=== PATIENT | female | born 1960 | race Caucasian/White ===

== ENCOUNTER → 2017-11-10 21:26 | Outpatient (CLI) | payer OTHER, SELFPAY ==
[2017-11-13 13:04] LABS: HPV Reflexed? NOT INDICATED
== END ==
PROVIDERS: Family Provider Family Medicine; PCP Family Medicine; Visit Provider Obstetrics & Gynecology
DX: Z12.4 Encounter for screening for malignant neoplasm of cervix (principal)
CPT/HCPCS: 88175; G0145

== ENCOUNTER → 2017-11-11 08:53 | Outpatient (CLI) | payer OTHER, SELFPAY ==
--- NOTE | 2017-11-11 08:56 | RAD_ITS ---
STUDY: X-RAY - LEFT SHOULDER REASON FOR EXAM: Chronic pain. TECHNIQUE: 3 view(s) of the shoulder. COMPARISON: None. FINDINGS: Normal glenohumeral articulation. Normal acromioclavicular joint. Normal acromion. Normal humeral head and visualized proximal humerus. The soft tissue structures are unremarkable. Normal visualized pulmonary apex. RAD/Shoulder min 2 Views IMPRESSION: Unremarkable x-ray examination of the left shoulder. Electronically Signed: Gamal Pendleton MD at 9:43 EST Tel , Service support ,
== END ==
PROVIDERS: Family Provider Family Medicine; PCP Family Medicine; Visit Provider Orthopaedic Surgery
DX: M25.512 Pain in left shoulder (principal)
CPT/HCPCS: 73030

== ENCOUNTER → 2017-11-26 15:31 | Outpatient (CLI) | payer OTHER, SELFPAY ==
--- NOTE | 2017-11-26 15:33 | HPBI_ITS ---
MAMMOGRAPHY - BILATERAL SCREENING REASON FOR EXAM: Female, 57 years old. Routine annual screening examination. PERTINENT HISTORY: Aunt with breast cancer. TECHNIQUE: Digital bilateral breast kira (3D mammographic acquisition) in the CC and MLO projections. 2-D mediolateral oblique (MLO) and craniocaudad (CC) views of both breasts were obtained. CAD: Full Field Digital Mammography with Computer Added Detection was performed. COMPARISON: Comparison is made with prior study dated November 14, 2016 and February 01, 2015. FINDINGS: Breast Composition: There are scattered areas of fibroglandular density. There are no dominant masses or suspicious calcifications. No other significant abnormalities are identified. There has been no significant change since the prior study. HPBI/SCREENING MAMM (CAD), BILAT IMPRESSION: Stable bilateral screening mammogram. Yearly follow-up mammogram recommended. (A) ASSESSMENT CATEGORY: BIRADS Category 1: Negative. A letter regarding these results will be sent to the patient by the facility within 30 days. Approximately 10% of breast cancers are not detected by mammography. A normal mammogram should not delay biopsy of a clinically suspicious abnormality. [id number] Electronically Signed: Toby Jasso MD at 8:18 EDT Tel [phone], Service support ,
== END ==
PROVIDERS: Family Provider Family Medicine; PCP Family Medicine; Visit Provider Obstetrics & Gynecology
DX: Z12.31 Encounter for screening mammogram for malignant neoplasm of breast (principal)
CPT/HCPCS: 77063; 77067

== ENCOUNTER → 2017-12-16 15:07 | Outpatient (CLI) | payer OTHER, SELFPAY ==
--- NOTE | 2017-12-16 15:09 | RAD_ITS ---
STUDY: X-RAY - RIGHT KNEE REASON FOR EXAM: Female, 57 years old. Pain TECHNIQUE: 4 view(s) of the knee. COMPARISON: X-ray 04/09/2016 FINDINGS: Normal visualized distal femur. Normal visualized proximal tibia and fibula. Normal proximal tibiofibular articulation. Normal medial femorotibial compartment. Normal lateral femorotibial compartment. Normal patellofemoral articulation. The soft tissue structures are unremarkable. RAD/Knee 4 or More Views IMPRESSION: Normal x-ray examination of the knee. Electronically Signed: Israel Wolff MD at 21:48 EDT Tel , Service support ,
== END ==
PROVIDERS: Family Provider Family Medicine; PCP Family Medicine; Visit Provider Orthopaedic Surgery
DX: S89.91XA Unspecified injury of right lower leg, initial encounter (principal); X58.XXXA Exposure to other specified factors, initial encounter
CPT/HCPCS: 73564

== ENCOUNTER → 2018-01-01 10:17 | Outpatient (CLI) | payer OTHER, SELFPAY ==
[2018-01-01 12:35] LABS: Anion Gap 6 (5-15); BUN 27 mg/dL (7-18); BUN/Creat Ratio 28.2 RATIO (10-20); Chloride 104 mmol/L (98-107); Creatinine, Serum 0.96 mg/dL (0.55-1.02); EST Glomerular Filtration Rate 64 mL/min (>60); Est Glom Filt Rate - Afr Amer 77 mL/min (>60); Glucose 81 mg/dL (74-106); Magnesium 2.1 mg/dL (1.6-2.6); Potassium 4.1 mmol/L (3.5-5.1); Sodium Level 139 mmol/L (136-145)
== END ==
PROVIDERS: Family Provider Family Medicine; PCP Family Medicine; Visit Provider Family Medicine
DX: R25.2 Cramp and spasm (principal)
CPT/HCPCS: 36415; 80048; 82330; 83735

== ENCOUNTER → 2018-05-23 09:12 | Outpatient (CLI) | payer OTHER, SELFPAY ==
[2018-05-23 10:23] LABS: AST(SGOT) 26 U/L (15-37); Alanine Aminotransfer ALT/SGPT 43 U/L (13-56); Albumin, Serum 3.6 g/dL (3.2-5.0); Alkaline Phosphatase 69 U/L (45-117); Cholesterol 210 mg/dL (200); Globulin 3.7 g/dL (2.2-4.2); High Density Lipoprotein 42 mg/dL; Protein, Total 7.3 g/dL (6.4-8.2); Triglycerides 222 mg/dL; Very Low Density Lipoprotein 44 mg/dL (5-40)
== END ==
PROVIDERS: Family Provider Family Medicine; PCP Family Medicine; Visit Provider Internal Medicine Cardiovascular Disease
DX: E78.5 Hyperlipidemia, unspecified (principal)
CPT/HCPCS: 36415; 80061; 80076

== ENCOUNTER → 2018-06-02 06:51 | Outpatient (CLI) | payer OTHER, SELFPAY ==
--- NOTE | 2018-06-02 06:52 | ECHOD_ITS ---
Reason For Study: dyspnea/SOB Procedure This was a 2D Doppler, Color Flow transthoracic echocardiogram. The study was technically difficult. Exam performed in department. Left Ventricle Normal LV size. Left ventricular systolic function is normal. The estimated ejection fraction is 65 %. Diastolic function is indeterminate. No regional wall motion abnormalities noted. Right Ventricle Normal RV size. Normal systolic function. Atria The left atrium is mildly enlarged. Normal right atrium. No doppler evidence for ASD. Mitral Valve There is no mitral annular calcification. Normal mitral valve. Trivial mitral valve insufficiency. Tricuspid Valve Normal tricuspid valve. Trivial tricuspid valve insufficiency. Right ventricular systolic pressure estimated to be 29 mmHg. Aortic Valve Trisinus/trileaflet aortic valve. Normal aortic valve. Pulmonic Valve The pulmonic valve is not well visualized. Great Vessels Normal sized aortic root. Pericardium/Pleural No pericardial effusion. MMode/2D Measurements & Calculations LVIDd: 4.3 cm IVSd: 1.1 cm Ao root diam: 2.8 cm LVIDs: 3.2 cm LVPWd: 0.99 cm LA dimension: 4.0 cm RVDd: 2.6 cm FS: 26.9 % LAV(MOD-bp): 71.9 ml LA A4 area: 22.4 cm2 RA A4 area: 14.1 cm2 LAV(MOD-bp) Indexed: 34.2 ml/m2 LAV(MOD-sp2): 69.1 ml LAV(MOD-sp4): 69.5 ml Doppler Measurements & Calculations MV E max alexei: 94.1 cm/sec Lat Peak E' Alexei: 8.4 cm/sec Med Peak E' Alexei: 8.0 cm/sec MV A max alexei: 99.2 cm/sec E/E' lat: 11.2 E/E' med: 11.8 MV E/A: 0.95 Ao V2 max: 167.2 cm/sec LV V1 max: 129.2 cm/sec PA V2 max: 126.9 cm/sec Ao max P.2 mmHg LV V1 max P.7 mmHg TR max alexei: 254.5 cm/sec TR max P.0 mmHg Interpretation Summary The study was technically difficult. Left ventricular systolic function is normal. The estimated ejection fraction is 65 %. The left atrium is mildly enlarged. Trivial mitral valve insufficiency. Trivial tricuspid valve insufficiency. Right ventricular systolic pressure estimated to be 29 mmHg. Diastolic function is indeterminate. Ordering Physician: Romulo Mcguire Referring Physician: Margarita Meza Performed By: Melida Harrell, SPENSER, RVT
--- NOTE | 2018-06-02 09:28 | STRESSREP_ITS ---
Stress Test Report Date: 06/02/2018 Procedure: Exercise tolerance test/imaging study Indications: Chest pain; shortness of breath Consent: Per the patient Procedure: The patient exercised on a Te protocol for 6 minutes completing Stage II achieving a peak heart rate of 153 bpm (93 % predicted maximal heart rate) with a peak blood pressure of 190/80 mmHg and a peak MET capacity of 7 METs. The baseline ECG demonstrated normal sinus rhythm. The peak exercise ECG demonstrated 1 mm of horizontal/upsloping ST segment depression in leads II, III, aVF, and V4 through V6 with gradual resolution towards baseline in recovery. There was a rare PAC/PVC during exercise. The functional capacity was considered average. There was no complaint of chest discomfort during exercise or recovery. The examination was discontinued secondary to dyspnea. Impression: 1. Technically adequate (percent predicted maximal heart rate greater than 85%) exercise tolerance test 2. Peak exercise ECG demonstrated 1 mm of horizontal/upsloping ST segment depression in leads II, III, aVF, and V4 through V6 with gradual resolution towards baseline in recovery 3. There was a rare PAC/PVC during exercise. 4. Nuclear images pending Myocardial perfusion imaging study: Technique: The patient was injected with 14.7 mCi of technetium 99m Cardiolite and subsequently rest SPECT Cardiolite nuclear imaging was obtained in the horizontal long, vertical long, and short axis views. The patient exercised on a Te protocol for 6 minutes completing Stage II achieving a peak heart rate of 153 bpm (93 % predicted maximal heart rate) with a peak blood pressure 190/80 mmHg and a peak MET capacity of 7 METs. The patient was injected with 44.8 mCi of technetium 99m Cardiolite and subsequently stress SPECT Cardiolite nuclear imaging was obtained in the horizontal long, vertical long, and short axis views. A gated Cardiolite study at peak stress was obtained. Interpretation: Rest and stress SPECT Cardiolite nuclear imaging status post realignment, normalization, and attenuation correction, demonstrates at rest relative uniform tracer uptake. Status post stress there appears to be subtle diminished tracer uptake in portions of the distal anterior/anterior apical segments. There are similar type findings on the resting and stress polar map images. There is end systolic thickening and brightening. The gated Cardiolite study demonstrates myocardial thickening and inward wall motion. The reported LVEF is 72 %. Impression: 1. Rest and stress SPECT Cardiolite nuclear imaging demonstrate status post stress subtle diminished tracer uptake in portions of the distal anterior/anteroapical segments potentially compatible with shifting soft tissue attenuation/artifact, however, an area of myocardial ischemia cannot necessarily be excluded. 2. The gated Cardiolite study reports an LVEF of 72 %. This note was generated with [email or web address].ation software. It may contain incorrect words, spelling, and punctuation that were not noted in checking the note before signing.
--- NOTE | 2018-06-16 16:55 | RAD_ITS ---
STUDY: X-RAY CHEST REASON FOR EXAM: Female, 58 years old. Chest pain with shortness of breath. TECHNIQUE: Frontal and lateral views of the chest. COMPARISON: None. FINDINGS: There is mild hyperexpansion. There is no demonstrated pleural abnormality. There is borderline cardiomegaly. Normal mediastinum and abel. Normal visualized pulmonary arteries. Normal visualized aortic arch and descending thoracic aorta. Normal visualized thoracic spine. Normal visualized ribs, clavicles, and shoulders. There is no demonstrated abnormality of the visualized soft tissue structures of the upper abdomen. RAD/Chest PA and Lateral IMPRESSION: Borderline cardiomegaly with mild hyperexpansion. No acute pathology. Electronically Signed: Cedric Fowler MD at 17:56 EDT , Service support ,
== END ==
PROVIDERS: Family Provider Family Medicine; PCP Family Medicine; Visit Provider Internal Medicine Cardiovascular Disease
DX: R06.00 Dyspnea, unspecified (principal); R07.9 Chest pain, unspecified; Z82.49 Family history of ischemic heart disease and other diseases of the circulatory system
CPT/HCPCS: 71046; 78452; 93017; 93306; A9500; A4216

== ENCOUNTER → 2018-06-16 17:03 | Outpatient (CLI) | payer OTHER, SELFPAY ==
[2018-06-16 17:26] LABS: Hematocrit 39.1 % (37-47); Hemoglobin 12.9 g/dl (12.0-15.0); Mean Corpuscular Hgb 30.9 pg (27.0-32.0); Mean Corpuscular Volume 93.5 fL (81-99); Mean Platelet Vol. 10.3 fl (6.2-12.0); Platelet Count 267 K/mm3 (150-450); RBC Distribution Width CV 12.5 % (11.6-14.6); RBC Distribution Width SD 41.9 fl (35.1-43.9); Red Blood Count 4.18 M/mm3 (4.2-5.4); White Blood Count 6.7 K/mm3 (4.4-11.0)
[2018-06-16 17:31] LABS: Scan Indicated on CBC? Y/N NO
[2018-06-16 17:35] LABS: International Normalized Ratio 0.9; Prothrombin Time (Protime)PT. 12.5 SECONDS (11.7-14.9)
[2018-06-16 17:36] LABS: Partial Thromboplast Time 24.1 Seconds (24.1-36.2)
[2018-06-16 18:02] LABS: Anion Gap 7 (5-15); BUN 15 mg/dL (7-18); BUN/Creat Ratio 13.6 RATIO (10-20); Calcium,Total 8.9 mg/dL (8.5-10.1); Chloride 105 mmol/L (98-107); EST Glomerular Filtration Rate 54 mL/min (>60); Est Glom Filt Rate - Afr Amer 66 mL/min (>60); Glucose 88 mg/dL (74-106); Potassium 3.6 mmol/L (3.5-5.1); Sodium Level 141 mmol/L (136-145)
== END ==
PROVIDERS: Family Provider Family Medicine; PCP Family Medicine; Referring Provider Internal Medicine Cardiovascular Disease; Visit Provider Internal Medicine Cardiovascular Disease
DX: R07.9 Chest pain, unspecified (principal); R94.39 Abnormal result of other cardiovascular function study
CPT/HCPCS: 36415; 80048; 85027; 85610; 85730

== ENCOUNTER → 2018-06-23 09:58 | Day surgery (SDC) | payer OTHER, SELFPAY ==
[2018-06-22 09:09] VITALS: BMI 32.1
--- NOTE | 2018-06-23 22:12 | CL.D_ITS ---
Patient Name: JOHANNA DOVE Study Date: 06/23/2018 Performing: Romulo Mcguire MD Ht: 68 inches 173 cm : 1960 Wt: 211.9 lbs 96 kg Age: 58 Gender: female BSA: 2.1 PROCEDURE(S) PERFORMED [id number]/LV CLINICAL PROFILE AND INDICATIONS Indications: Suspected CAD Heart Failure: None Stress/Imaging Stress Test w/SPECT MPI: Yes Result: PositiveStress Test with SPECT MPI: Positive Angina Classification Anginal Classification w/in 2 Weeks: CCS III CAD Presentations: Other: chest pain CONCLUSIONS Elevated Left Ventricular End Diastolic Pressure Normal LV size, wall motion,and systolic function LVEF: by LV gram 65 % Normal coronary arteries RECOMMENDATIONS Risk factor modification Medical therapy DESCRIPTION OF PROCEDURE The patient arrived to the procedure lab. The risks and benefits of the procedure as well as a full d escription of our services here and current unavailability of surgical backup were fully explained to the patient and/or their significant other prior to the catheterization. The Timeout was completed, verifying the correct patient and procedure. The patient's procedural site was prepped and draped in the usual fashion. Local anesthetic was given subcutaneously to right radial region with Lidocaine 2% . Using a modified Seldinger technique, arterial access was obtained via the right radial artery, a 6 Fr sheath was inserted. Left Coronary Artery selective angiography was performed in multiple views u sing a 6 Fr. 4.0 [place] catheter. Right Coronary Artery selective angiography was then performed in mu ltiple views using a 5 Fr. 4.0 [place] catheter. Left Ventriculography was performed in BAILEY projection using a 5 Fr. [place] catheter. LV to AO pullback pressures were then recorded.The arterial sheath wa s pulled and a TR Band was applied for hemostasis, 18cc of air applied CORONARY ANGIOGRAPHY DOMINANCE: Left Dominant LEFT HEART ASSESSMENT Left Ventricular Ejection Fraction: by LV Gram 65 % Normal LV wall motion Elevated Left Ventricular End Diastolic Pressure LVEDP: 18 mmHg LEFT MAIN: Angiographically normal LEFT ANTERIOR DECENDING ARTERY: Angiographically normal CIRCUMFLEX ARTERY: Angiographically normal RIGHT CORONARY ARTERY: Angiographically normal VALVE FINDINGS: Normal Aortic Valve function Normal Mitral Valve function AORTIC ROOT: Angiographically normal COMPLICATIONS No Complications PROCEDURE MEDICATIONS Fentanyl 50 mcg IV Versed 1 mg IV Oxygen: 2 L/min via nasal cannula Heparin diluted in 23cc Heparinized saline. Patient given 10cc IA of this solution. 06/23/2018 11:43 :44 Verapamil 2.5mg, Ntg 100mcgs, 2000 units of Heparin diluted in 23cc Heparinized saline. Patient give n 10cc IA of this solution. 06/23/2018 11:43:44 SUMMARY OF HEMODYNAMIC DATA Time AIR REST ECG 10:28:42 AO 98/55 (73) SA 11:46:21 LV 125/3, 15 11:53:10 LV 124/6, 18 11:53:16 LV 119/9, 21 11:54:25 LVp 119/10, 25 11:54:33 AOp 115/59 (82) 11:54:38 Signed By Romulo Mcguire MD On 06/23/2018 20:14:30 Romulo Mcguire MD
== END ==
PROVIDERS: Family Provider Family Medicine; PCP Family Medicine; Referring Provider Internal Medicine Cardiovascular Disease; Visit Provider Internal Medicine Cardiovascular Disease
DX: I11.0 Hypertensive heart disease with heart failure (principal); I50.30 Unspecified diastolic (congestive) heart failure; R94.39 Abnormal result of other cardiovascular function study; E78.00 Pure hypercholesterolemia, unspecified; G47.33 Obstructive sleep apnea (adult) (pediatric); K21.9 Gastro-esophageal reflux disease without esophagitis; M19.90 Unspecified osteoarthritis, unspecified site; M79.7 Fibromyalgia; Z79.82 Long term (current) use of aspirin; Z79.899 Other long term (current) drug therapy; Z82.49 Family history of ischemic heart disease and other diseases of the circulatory system
CPT/HCPCS: 93458; 99152; J7040; Q9967; C1769; C1894

== ENCOUNTER → 2018-12-07 16:13 | Outpatient (CLI) | payer OTHER, SELFPAY ==
[2018-12-10 14:20] LABS: HPV Reflexed? NOT INDICATED
== END ==
PROVIDERS: Family Provider Family Medicine; PCP Family Medicine; Visit Provider Obstetrics & Gynecology
DX: Z12.4 Encounter for screening for malignant neoplasm of cervix (principal)
CPT/HCPCS: 88175; G0145

== ENCOUNTER → 2018-12-14 | Outpatient (CLI) | payer OTHER, SELFPAY ==
--- NOTE | 2018-12-14 15:56 | BI_ITS ---
MAMMOGRAPHY - BILATERAL SCREENING REASON FOR EXAM: Female, 58 years old. Routine annual screening examination. PERTINENT HISTORY: Aunt with breast cancer. TECHNIQUE: Digital bilateral breast kira (3D mammographic acquisition) in the CC and MLO projections. 2-D mediolateral oblique (MLO) and craniocaudad (CC) views of both breasts were obtained. CAD: Full Field Digital Mammography with Computer Added Detection was performed. COMPARISON: Comparison is made with prior study dated November 26, 2018 and November 14, 2016. FINDINGS: Breast Composition: There are scattered areas of fibroglandular density. There are no dominant masses or suspicious calcifications. There is a 5.8 mm well-defined nodule in the upper lateral aspect of the right breast. Correlation with ultrasound is recommended. No other significant abnormalities are identified. BI/SCREENING MAMM (CAD), BILAT IMPRESSION: 5.8 mm well-defined nodule in the upper lateral aspect of the right breast. Correlation with ultrasound is recommended. ASSESSMENT CATEGORY: BIRADS Category 0: Incomplete. Need additional imaging evaluation. A letter regarding these results will be sent to the patient by the facility within 30 days. Approximately 10% of breast cancers are not detected by mammography. A normal mammogram should not delay biopsy of a clinically suspicious abnormality. [id number] Electronically Signed: Toby Jasso, at 9:42 EDT , Service support ,
== END | disposition home or self-care (01) ==
LOC: OPBI 15:54
PROVIDERS: Family Provider Family Medicine; PCP Family Medicine; Referring Provider Obstetrics & Gynecology; Visit Provider Obstetrics & Gynecology
DX: Z12.31 Encounter for screening mammogram for malignant neoplasm of breast (principal); N63.10 Unspecified lump in the right breast, unspecified quadrant; Z80.3 Family history of malignant neoplasm of breast
CPT/HCPCS: 77063; 77067

== ENCOUNTER → 2018-12-21 15:29 | Outpatient (CLI) | payer OTHER, SELFPAY ==
--- NOTE | 2018-12-21 15:32 | US_ITS ---
STUDY: ULTRASOUND BREAST - RIGHT REASON FOR EXAM: Female, 58 years old. Abnormal screening mammogram. TECHNIQUE: Axial and longitudinal images of the RIGHT breast were performed with a high resolution ultrasound transducer. COMPARISON: Comparison is made with prior mammogram dated December 14, 2018. FINDINGS: RIGHT Breast: There is a 3 mm x 4 mm x 2 mm well-defined hypoechoic nodule at the 9:00 position of the breast at 8 cm from the nipple. This corresponds to the mammographic findings. This may represent a small cyst with low-level echoes within it or a small fibroadenoma. A four-month follow-up sonogram is recommended. US/Breast Limited Unilateral IMPRESSION: 3 mm x 4 mm x 2 mm well-defined hypoechoic nodule at the 9:00 position of the breast at 8 cm from nipple. A four-month follow-up sonogram is recommended for further evaluation. ASSESSMENT CATEGORY: BIRADS Category 3: Probably Benign - Short-Interval Follow-up Suggested. A letter regarding these results will be sent to the patient by the facility within 30 days. Electronically Signed: Toby Jasso, at 8:08 EDT , Service support ,
== END ==
PROVIDERS: Family Provider Family Medicine; PCP Family Medicine; Visit Provider Obstetrics & Gynecology
DX: N63.10 Unspecified lump in the right breast, unspecified quadrant (principal)
CPT/HCPCS: 76642

== ENCOUNTER → 2019-04-14 | Outpatient (CLI) | payer OTHER, SELFPAY ==
--- NOTE | 2019-04-14 13:11 | RAD_ITS ---
STUDY: X-RAY - RIGHT FOOT CLINICAL: Female, 58 years old. Chronic foot pain TECHNIQUE: 3 view(s) of the foot. COMPARISON: None. FINDINGS: Normal talus, calcaneus, and tarsal bones. Normal visualized subtalar, talonavicular, calcaneocuboid, tarsal and tarsometatarsal articulations. Normal metatarsi. There is degenerative arthrosis of the metatarsophalangeal joint of the hallux with a hallux valgus deformity. Normal tibial and fibular sesamoid bones. Normal interphalangeal joint of the great toe. Normal phalanges of the great toe. Normal second through fifth metatarsophalangeal joints. Normal interphalangeal joints and phalanges of the lesser toes. The soft tissue structures are unremarkable. There is no demonstrated fracture. RAD/Foot min 3 Views IMPRESSION: No acute fracture or dislocation. Marked hallux valgus and prominent first metatarsal bunion. Electronically Signed: Montez Fisher MD at 17:08 EDT , Service support ,
== END | disposition home or self-care (01) ==
LOC: HPRAD 13:08
PROVIDERS: Family Provider Family Medicine; PCP Family Medicine; Referring Provider Podiatrist; Visit Provider Podiatrist
DX: S93.601A Unspecified sprain of right foot, initial encounter (principal)
CPT/HCPCS: 73630

== ENCOUNTER → 2019-04-28 14:19 | Outpatient (CLI) | payer OTHER, SELFPAY ==
--- NOTE | 2019-04-28 14:21 | US_ITS ---
STUDY: ULTRASOUND BREAST - RIGHT REASON FOR EXAM: Female, 58 years old. Follow-up of hypoechoic nodule TECHNIQUE: Axial and longitudinal images of the RIGHT breast were performed with a high resolution ultrasound transducer. COMPARISON: Mammogram of 12/14/2018, and sonogram of 12/21/2018. FINDINGS: RIGHT Breast: There is a lesion in the upper-outer quadrant. The lesion measures 0.3 x 0.4 x 0.2 cm in size, stable since prior. Clock notation: 9 o'clock position. Distance from nipple: 8 cm. Posterior Enhancement: No. Posterior Shadowing: None. Margins: Sharp and smooth. Echogenicity: Hypoechoic. Compression effect on Shape: No change. US/Breast Limited Unilateral IMPRESSION: Stable dimension of the hypoechoic nodule on the right side compared to prior. ASSESSMENT CATEGORY: BIRADS Category 3: Probably Benign - Short-Interval Follow-up Suggested. A letter regarding these results will be sent to the patient by the facility within 30 days. Follow-up: Patient to return to annual screening in December 2019 Electronically Signed: Wayne Kelly MD at 13:41 EDT Tel [phone], Service support ,
== END ==
PROVIDERS: Family Provider Family Medicine; PCP Family Medicine; Referring Provider Obstetrics & Gynecology; Visit Provider Obstetrics & Gynecology
DX: N63.11 Unspecified lump in the right breast, upper outer quadrant (principal)
CPT/HCPCS: 76642

== ENCOUNTER → 2019-06-10 09:08 | Outpatient (CLI) | payer OTHER, SELFPAY ==
[2019-06-10 09:03] VITALS: BMI 32.1
--- NOTE | 2019-06-10 09:09 | RAD_ITS ---
STUDY: X-RAY - RIGHT HAND REASON FOR EXAM: Pain. TECHNIQUE: 3 view(s) of the hand. COMPARISON: None. FINDINGS: Normal radiocarpal articulation. Normal distal radioulnar joint. Normal visualized carpal bones. Normal carpal articulations There is moderate to severe joint space narrowing of the carpometacarpal articulation of the thumb. Normal second through fifth carpometacarpal joints. Normal metacarpi. Normal metacarpophalangeal joint of the thumb. There is a small marginal osteophyte without joint space narrowing of the interphalangeal joint of the thumb. Normal proximal and distal phalanges of the thumb. Normal metacarpophalangeal joints of the second through fifth fingers. There is mild joint space narrowing of the third through fifth distal interphalangeal joints. Normal phalanges of the second through fifth fingers. The soft tissue structures are unremarkable. RAD/Hand Min 3 Views IMPRESSION: Arthrosis of the first carpometacarpal joint and third through fifth distal interphalangeal joints. Electronically Signed: Gamal Pendleton MD at 15:09 EDT Tel , Service support ,
[2019-06-10 12:26] LABS: Absolute Lymphocyte Count 2.38 X10^3/uL (0.83-4.51); Absolute Neutrophil Count 2.7 X10^3/uL (2.0-7.7); Basophil# 0.04 X10^3/uL; Basophil% 0.7 % (0-1); Eosinophil# 0.29 X10^3/uL; Hematocrit 40.9 % (37-47); Hemoglobin 13.1 g/dL (12.0-15.0); Lymphocyte # 2.38 X10^3/ul (4.0); Lymphocyte % 40.9 % (19-41); Mean Corpuscular Hgb 30.7 pg (27.0-32.0); Mean Corpuscular Volume 95.8 fL (81-99); Mean Platelet Vol. 10.6 fl (6.2-12.0); Monocyte# 0.37 X10^3/uL; Monocyte% 6.4 % (0-10); NRBC Flagged by Analyzer 0 % (0-5); Neutrophil # 2.72 X10^3/uL (2.7-7.7); Neutrophil % 46.7 % (47-70); Platelet Count 275 K/mm3 (150-450); RBC Distribution Width SD 45.4 fl (35.1-43.9); Red Blood Count 4.27 M/mm3 (4.2-5.4); White Blood Count 5.8 K/mm3 (4.4-11.0)
[2019-06-10 12:40] LABS: ALB/GLOB Ratio 1.1 RATIO (0.9-2.4); AST(SGOT) 27 U/L (15-37); Alanine Aminotransfer ALT/SGPT 47 U/L (13-56); Albumin, Serum 3.9 g/dL (3.2-5.0); Alkaline Phosphatase 72 U/L (45-117); Anion Gap 3 (5-15); BUN 16 mg/dL (7-18); Calcium,Total 9.3 mg/dL (8.5-10.1); Chloride 105 mmol/L (98-107); Cholesterol 167 mg/dL (200); Creatinine, Serum 1.07 mg/dL (0.55-1.02); EST Glomerular Filtration Rate 56 mL/min (>60); Est Glom Filt Rate - Afr Amer 68 mL/min (>60); Globulin 3.5 g/dL (2.2-4.2); Glucose 90 mg/dL (74-106); High Density Lipoprotein 45 mg/dL; Protein, Total 7.4 g/dL (6.4-8.2); Sodium Level 139 mmol/L (136-145); Triglycerides 169 mg/dL; Very Low Density Lipoprotein 34 mg/dL (5-40)
[2019-06-10 12:41] LABS: Hemoglobin A1c 5.7 % (4.2-6.3)
== END ==
PROVIDERS: Internal Medicine Cardiovascular Disease; Family Provider Family Medicine; PCP Family Medicine; Referring Provider Orthopaedic Surgery; Visit Provider Orthopaedic Surgery
DX: M18.9 Osteoarthritis of first carpometacarpal joint, unspecified (principal); M15.1 Heberden's nodes (with arthropathy); E78.5 Hyperlipidemia, unspecified; R53.83 Other fatigue; R73.03 Prediabetes; Z51.81 Encounter for therapeutic drug level monitoring
CPT/HCPCS: 36415; 73130; 80053; 80061; 82248; 83036; 85025

== ENCOUNTER → 2019-10-07 08:43 | Outpatient (CLI) | payer OTHER, SELFPAY ==
[2019-06-24 09:26] VITALS: BMI 31.9
== END ==
LOC: PSN 08:44
PROVIDERS: PCP Family Medicine; Referring Provider Internal Medicine Cardiovascular Disease; Visit Provider Internal Medicine Cardiovascular Disease
DX: I10 Essential (primary) hypertension (principal); E78.00 Pure hypercholesterolemia, unspecified; G47.33 Obstructive sleep apnea (adult) (pediatric); R94.39 Abnormal result of other cardiovascular function study; R07.9 Chest pain, unspecified; R00.2 Palpitations
CPT/HCPCS: 93225; 93226

== ENCOUNTER → 2019-12-17 09:16 | Outpatient (CLI) | payer OTHER, SELFPAY ==
[2019-06-24 09:26] VITALS: BMI 31.9
--- NOTE | 2019-12-17 09:23 | BI_ITS ---
MAMMOGRAPHY - BILATERAL SCREENING REASON FOR EXAM: Female, 59 years old. Routine annual screening examination. PERTINENT HISTORY: Aunt with breast cancer. TECHNIQUE: Digital bilateral breast cristian (3D mammographic acquisition) in the CC and MLO projections. 2-D mediolateral oblique (MLO) and craniocaudad (CC) views of both breasts were obtained. CAD: Full Field Digital Mammography with Computer Added Detection was performed. COMPARISON: Comparison is made with prior examination dated December 14, 2018 and November 26, 2017. FINDINGS: Breast Composition: There are scattered areas of fibroglandular density. There are no dominant masses or suspicious calcifications. There is a stable 5.8 mm well-defined nodule in the upper lateral aspect of the right breast. Prior ultrasound dated April 28, 2019 demonstrated this to be a well-defined hypoechoic nodule is unchanged. No other significant abnormalities are identified. There has been no significant change since the prior study. BI/SCREEN MAMM (CAD) W/CRISTIAN BILAT IMPRESSION: Stable bilateral screening mammogram. Yearly follow-up mammogram recommended. (A) ASSESSMENT CATEGORY: BIRADS Category 2: Benign. A letter regarding these results will be sent to the patient by the facility within 30 days. Approximately 10% of breast cancers are not detected by mammography. A normal mammogram should not delay biopsy of a clinically suspicious abnormality. [id number] Electronically Signed: Toby Jasso, at 12:35 EDT , Service support ,
--- NOTE | 2019-12-17 09:23 | US_ITS ---
STUDY: ULTRASOUND BREAST - RIGHT REASON FOR EXAM: Female, 59 years old. Follow-up for abnormal breast ultrasound. TECHNIQUE: Axial and longitudinal images of the RIGHT breast were performed with a high resolution ultrasound transducer. # OF IMAGES: 11 COMPARISON: Comparison is made with prior ultrasound of the right breast dated December 21, 2018 and April 28, 2019. FINDINGS: RIGHT Breast: Stable 4 mm x 4 mm x 2 mm hypoechoic nodule at the 9:00 position of the breast at 8 cm from the nipple. This is not a typical cyst. A targeted biopsy is recommended at this time. US/Breast Limited Unilateral IMPRESSION: 4 mm x 4 mm x 2 mm well-defined hypoechoic nodule at the 9:00 position of the breast at 8 cm from nipple. This has not changed as compared to prior study. Tissue diagnosis is recommended at this time. ASSESSMENT CATEGORY: BIRADS Category 4: Suspicious - Biopsy Should Be Considered. A letter regarding these results will be sent to the patient by the facility within 30 days. Electronically Signed: Toby Jasso, at 10:59 EDT , Service support ,
== END ==
PROVIDERS: PCP Family Medicine; Referring Provider Obstetrics & Gynecology; Visit Provider Obstetrics & Gynecology
DX: Z12.31 Encounter for screening mammogram for malignant neoplasm of breast (principal)
CPT/HCPCS: 76642; 77063; 77067

== ENCOUNTER → 2019-12-24 12:43 | Outpatient (CLI) | payer OTHER, SELFPAY ==
[2019-06-24 09:26] VITALS: BMI 31.9
[2019-12-20 08:43] VITALS: BMI 30.9
--- NOTE | 2019-12-24 | BRBX_PTH ---
PATIENT: JOHANNA DOVE LOC: [facility] U#:[id number] AGE/SX: 65/F ROOM: RE12/24/[address]: Dr. Margarita Meza DO : 1960 BED: DIS: SPEC #: [id number] RECD: 12/24/19 13:50 STATUS: NATHAN REQ #: [id number] MARILEE: 12/24/19 00:[address]: Master Donis DEPT: SURGICAL PATHOLOGY RECD BY: Devon Rojas ENTERED: 12/27/19 10:12 SP TYPE: BREAST BX OTHR DR: MD Dr. Margarita Corea DO Tissues: Right breast, NOS Procedures: Surgery Specimen Level IV Comments: @ Ordering doctor for SUIV edited from to @ by SALEEM at 12/27/19 1059 @ Submitting doctor edited from to DR.DPEABO Hina MONGE at 12/27/19 1059 HEADER OPERATION: Ultrasound-guided right breast biopsy PRE-OP DIAGNOSIS: Abnormal mammogram TISSUE SUBMITTED: Right breast MICROSCOPIC DIAGNOSIS Right breast, ultrasound-guided needle core biopsy: Intraductal hyperplasia without atypia. Focal adenosis and fibrocystic change. No evidence of malignancy. AM:marimar 12/28/19 COMMENT Case has been reviewed in consultation with Dr. Sanchez who concurs with the above diagnosis. IDC:ALICE MICROSCOPIC DESCRIPTION Slides are reviewed. GROSS DESCRIPTION Received in fixative is one container labeled with the patient's name and designated right breast biopsy. The specimen consists of multiple elongated fragments of dawson-yellow fibroadipose tissue that in aggregate measure 2 x 0.5 x 0.1 cm. The entire specimen is submitted in one cassette. / ALICE:marimar 12/27/19 TC:5 CPT: 07580
--- NOTE | 2019-12-24 12:47 | US_ITS ---
STUDY: ULTRASOUND BREAST - RIGHT REASON FOR EXAM: Female, 59 years old. Biopsy of right breast nodule performed by Master Barahona MD TECHNIQUE: Axial and longitudinal images of the RIGHT breast were performed with a high resolution ultrasound transducer. # OF IMAGES: 16 COMPARISON: None. FINDINGS: RIGHT Breast: Suspicious nodule at 9:00 N +8 is biopsied under ultrasound guidance. Multiple samples of the nodule were taken. US/US Breast Biopsy 1st Lesion IMPRESSION: Successful ultrasound-guided biopsy of nodule in the right breast. ASSESSMENT CATEGORY: BIRADS Category 4: Suspicious - Biopsy is performed. Pathology results pending. Electronically Signed: Betsy Mcintosh, at 5:19 EDT Tel , Service support ,
--- NOTE | 2019-12-24 13:33 | BI_ITS ---
MAMMOGRAPHY - UNILATERAL DIAGNOSTIC: RIGHT BREAST REASON FOR EXAM: Female, 59 years old. Post biopsy clip placement. PERTINENT HISTORY: Aunt with breast cancer. TECHNIQUE: Digital unilateral breast kira (3D mammographic acquisition) in the CC and MLO projections. 2-D mediolateral oblique (MLO) and craniocaudad (CC) views of both breasts were obtained. CAD: Full Field Digital Mammography with Computer Added Detection was performed. COMPARISON: Comparison is made with prior mammogram dated December 17, 2019. FINDINGS: Breast Composition: There are scattered areas of fibroglandular density. There are no dominant masses or suspicious calcifications. A tissue clip marker is now seen in the upper lateral portion of the right breast. The previously seen nodule has decreased in size. No other significant abnormalities are identified. BI/DIAG MAMM W/CAD, UNILAT IMPRESSION: Tissue clip marker is seen at the biopsy site. ASSESSMENT CATEGORY: BIRADS Category 2: Benign. A letter regarding these results will be sent to the patient by the facility within 30 days. Approximately 10% of breast cancers are not detected by mammography. A normal mammogram should not delay biopsy of a clinically suspicious abnormality. Electronically Signed: Toby Jasso, at 13:21 EDT , Service support ,
--- NOTE | 2019-12-24 13:34 | PCM.OPRPT ---
Problem List (1) Abnormal mammogram of right breast Status: Acute Report of Operation Date of Procedure: 12/24/19 Pre-Operative Diagnosis: Abnormal mammogram right breast Post-Operative Diagnosis: Same Surgery/Procedure Performed:: Ultrasound-guided handheld mammotome breast biopsy right breast Type of Anesthesia:: Local Estimated Blood Loss (mL): < 5 cc Description of Procedure: Dorsum of the right breast at the 9 o'clock position revealed the lesion in question. Prepped the skin with chlorhexidine. I injected 1% lidocaine plain. I injected local posterior to the lesion. A skin lahson was made. Under ultrasound guidance I directed the hand-held mammotome needle posterior to the lesion. Under ultrasound guidance I took numerous biopsies of this lesion and ablated it completely. Under ultrasound guidance I placed a small titanium clip. Sterile dressings were applied. The patient tolerated the procedure well. - Admit VTE Documentation VTE Present on Admission: No VTE Mechan Device Prophylaxis: None VTE Pharm Prophylaxis ordered?: No Reason prophylaxis not ordered:: Treatment Not Indicated [id number]: [id number] Bx breast 1st lesion us imag
--- NOTE | 2019-12-24 13:37 | PCM.HP.BLA ---
Problem List (1) Abnormal mammogram of right breast Status: Acute History and Physical Date of Admission: 12/24/19 [facility] [address] [place] [address] OFFICE VISIT Date of Service: 12/20/19 MR#: [id number] Acct: [id number] Patient: JOHANNA DOVE Rep #: [id number] : [id number] Provider: Master Donis MD Age/Sex: 59/F Location: [facility] Status: Signed Intake Vital Signs 12/20/19 Height 5 ft 8 in 12/20/19 Weight: 203 lb 12/20/19 BMI 30.9 12/20/19 BMI 31.9 Intake Visit Reasons: Birads 4 Right Breast/TELE Anthropologist Required: No Is patient in pain?: No Allergies No Known Allergies Allergy (Verified 12/20/19 08:39) Medications temazepam 15 mg capsule 15 mg PO QHS PRN 11/11/17 [History Confirmed 12/20/19] albuterol sulfate 90 mcg/actuation aerosol inhaler 1 puff INHALATION Q6H PRN 05/07/18 [History Confirmed 12/20/19] doockmz-gxavcqqpw-kugweer D2 500 mg-50 mg-100 unit chewable tablet 1 tab PO QDAY tab 05/07/18 [History Confirmed 12/20/19] cetirizine 10 mg tablet 10 mg PO QDAY 05/07/18 [History Confirmed 12/20/19] melatonin 5 mg tablet 5 mg PO HS PRN 05/07/18 [History Confirmed 12/20/19] vitamin B complex 1 tab PO DAILY 05/07/18 [History Confirmed 12/20/19] simvastatin 20 mg tablet 20 mg PO DAILY tab 05/25/18 [History Confirmed 12/20/19] aspirin 81 mg tablet,delayed release 81 mg PO DAILY 06/03/18 [History Confirmed 12/20/19] azilsartan medoxomil 40 mg tablet 20 mg PO DAILY tab 06/24/19 [History Confirmed 12/20/19] cholecalciferol (vitamin D3) 10 mcg (400 unit) capsule 400 unit PO DAILY 06/24/19 [History Confirmed 12/20/19] duloxetine 30 mg capsule,delayed release 30 mg PO .QOD #90 cap 06/24/19 [History Confirmed 12/20/19] potassium chloride 8 mEq capsule,extended release 99 meq PO DAILY PRN cap 06/24/19 [History Confirmed 12/20/19] propranolol 80 mg tablet 80 mg PO QDAY PRN tab 10/12/19 [History Confirmed 12/20/19] omeprazole 20 mg capsule,delayed release 20 mg PO DAILY 12/20/19 [History Confirmed 12/20/19] [facility] Medical History Abnormal ultrasound of breast (Acute) Abnormal mammogram of right breast (Acute) Fibromyalgia (Chronic) IBS (irritable bowel syndrome) (Chronic) Acid reflux (Acute) Migraines (Acute) Osteoarthritis (Acute) Pure hypercholesterolemia (Chronic) Essential (primary) hypertension (Chronic) Abnormal stress test (Acute) Chest pain (Acute) ABDULAZIZ (obstructive sleep apnea) (Chronic) Surgical History Hx of colonoscopy (Acute) History of foot surgery (Acute) Family History Father Heart disease Sister Myocardial infarction Mother Arrhythmia Heart disease Diabetes CHF (congestive heart failure) Thyroid disorder Brother Arrhythmia Myocardial infarction Brother Arrhythmia ASVD (arteriosclerotic vascular disease) Heart disease Sister Sarcoidosis Daughter Thyroid disorder Social History (Updated 12/21/19 @ 10:[address] Master Donis MD) Smoking Status: Never smoker second hand exposure: No alcohol intake: never substance use type: does not use caffeine: Yes what type of physical activity do you participate in: none frequency: does not exercise HPI HPI Details: Patient was informed that this visit will be billed to patient. This visit was conducted during COVID- pandemic. JOHANNA DOVE, is a 59 F who presents to the office today for Phone consultation for an abnormal mammogram and ultrasound completed at [facility] on 12/17/2019. This showed a 4 mm nodule at the 9 o'clock position approximately 8 cm from the nipple on her right breast. Given a BI-RADS Category 4 and a biopsy was recommended. The patient has not noticed any new lumps or bumps she has never had breast surgery in the past Exam Details: Details:: Exam was limited due to phone visit with no video. Quality Reporting Medication Reconciliation (CMS 68) albuterol sulfate 90 mcg/actuation (Ventolin HFA) 1 puff inhalation Q6H PRN aspirin 81 mg PO DAILY azilsartan medoxomil 20 mg PO DAILY hikdcxn-dwlolicaz-ntajtfl D2 500 mg-50 mg-100 unit chewable tablet 1 tab PO QDAY cetirizine (Zyrtec) 10 mg PO QDAY cholecalciferol (vitamin D3) 400 units PO DAILY duloxetine 30 mg PO .QOD melatonin 5 mg PO HS PRN omeprazole 20 mg PO DAILY potassium chloride ER 99 mEq PO DAILY PRN propranolol 80 mg PO QDAY PRN simvastatin 20 mg PO DAILY temazepam 15 mg PO QHS PRN vitamin B complex (B Complex-Vitamin B12) 1 tab PO DAILY BMI Screening (CMS 69) Body Mass Index (BMI): 31.9 Tobacco Screening (CMS 138) Smoking Status: Never smoker Assessment & Plan Problems 1. Abnormal mammogram of right breast R92.8 Plan I have discussed above with the patient. I have recommended ultrasound guided needle core breast biopsy with vacuum assistance. I have described the procedure to the patient. I have discussed with the patient that sometimes the ultrasound lesion may be artifact and is user dependent and therefore prior to undergoing the procedure, the patient will have a definitive US to ensure that the lesion is truly present and is not artifact. A marker clip will be placed to identify the location. Patient has been counseled to the risks/benefits of the procedure. I have explained the risks of the surgery, including but not limited to: infection, bleeding, injury to any blood vessels/nerves, scar tissue, missing the lesion, further surgery, etc. - the patient understands and agrees to proceed. I have answered all of the patient's questions to her satisfaction and she has no further questions. 12/21/19 1038 <Electronically signed by Master Donis MD> Date Master Donis MD Cosign Signature: Date (if applicable) CC: Dr. Margarita Meza, DO; Osorio Dumont MD ~ I have re-examined the patient. There are no clinical changes since date of exam.
--- NOTE | 2019-12-24 14:07 | RAD_ITS ---
STUDY: X-RAY CHEST REASON FOR EXAM: Female, 59 years old. CHRONIC STERNAL CHEST PAIN INTERMITTENTLY -- PT HAD RIGHT BREAST BIOPSY TODAY ALSO TECHNIQUE: Frontal and lateral views of the chest. COMPARISON: None. FINDINGS: The lungs are clear and expanded. There is no demonstrated pleural abnormality. Normal size heart. Normal mediastinum and abel. Normal visualized pulmonary arteries. Normal visualized aortic arch and descending thoracic aorta. There is a dextroscoliosis of the thoracic spine. There is degenerative osteoarthritis of the bilateral shoulders. There is no demonstrated abnormality of the visualized soft tissue structures of the upper abdomen. RAD/Chest PA and Lateral IMPRESSION: Degenerative changes, as described above. No demonstrated acute cardiopulmonary process. Electronically Signed: Betsy Mcintosh, at 14:46 EDT Tel , Service support ,
--- NOTE | 2019-12-28 13:56 | NURSING ---
In response to pt's questions WILLIE Maguire states you can resume your baby aspirin and hold off on the neosporin until your steri strips fall off
== END ==
LOC: US 12:44 → RAD 14:01
PROVIDERS: PCP Family Medicine; Referring Provider Family Medicine; Visit Provider Family Medicine
DX: R92.8 Other abnormal and inconclusive findings on diagnostic imaging of breast (principal); R07.9 Chest pain, unspecified
CPT/HCPCS: 19083; 71046; 77065; 88305

== ENCOUNTER → 2019-12-24 13:50 | Outpatient (CLI) | payer OTHER, SELFPAY ==
[2019-12-20 08:43] VITALS: BMI 30.9
== END ==
PROVIDERS: PCP Family Medicine; Referring Provider Family Medicine; Visit Provider Family Medicine
DX: Z00.00 Encounter for general adult medical examination without abnormal findings (principal)

== ENCOUNTER → 2020-03-23 10:22 | Outpatient (CLI) | payer OTHER, SELFPAY ==
[2020-03-23 10:04] VITALS: BMI 30.9
--- NOTE | 2020-03-23 10:23 | RAD_ITS ---
STUDY: X-RAY - RIGHT KNEE REASON FOR EXAM: Knee pain. TECHNIQUE: 4 view(s) of the knee. COMPARISON: Radiographs 12/16/2017. FINDINGS: There are suspected interval development of an osteochondral lesion of the medial femoral condyle, best evaluated on the tunnel view. Normal visualized proximal tibia and fibula. Normal proximal tibiofibular articulation. Normal medial femorotibial compartment. Normal lateral femorotibial compartment. There is a very small marginal osteophyte of the superior patella without joint space narrowing of the patellofemoral articulation. There is a small joint effusion. RAD/Knee 4 or More Views IMPRESSION: Suspected osteochondral lesion of the medial femoral condyle. Small joint effusion. Electronically Signed: Gamal Pendleton MD at 11:10 EDT Tel , Service support ,
== END ==
PROVIDERS: PCP Family Medicine; Referring Provider Orthopaedic Surgery; Visit Provider Orthopaedic Surgery
DX: M25.561 Pain in right knee (principal)
CPT/HCPCS: 73564

== ENCOUNTER → 2020-04-21 16:33 | Outpatient (CLI) | payer OTHER, SELFPAY ==
[2020-03-23 10:04] VITALS: BMI 30.9
[2020-04-27 20:32] LABS: HPV APTIMA, High Risk Negative (Negative)
== END ==
PROVIDERS: PCP Family Medicine; Visit Provider Student in an Organized Health Care Education/Training Program
DX: Z12.4 Encounter for screening for malignant neoplasm of cervix (principal)
CPT/HCPCS: 87624; 88175; G0145

== ENCOUNTER → 2020-08-12 09:01 | Outpatient (CLI) | payer OTHER, SELFPAY ==
[2020-07-24 16:12] VITALS: BMI 32.8
[2020-08-12 09:44] LABS: Hematocrit 42.9 % (37-47); Mean Corp Hgb Conc 32.6 g/dL (32-36); Mean Corpuscular Hgb 30.1 pg (27.0-32.0); Mean Corpuscular Volume 92.3 fL (81-99); Mean Platelet Vol. 10.8 fl (6.2-12.0); Platelet Count 303 K/mm3 (150-450); RBC Distribution Width SD 43.5 fl (35.1-43.9); Red Blood Count 4.65 M/mm3 (4.2-5.4); White Blood Count 6.4 K/mm3 (4.4-11.0)
[2020-08-12 10:11] LABS: AST(SGOT) 27 U/L (15-37); Alanine Aminotransfer ALT/SGPT 46 U/L (13-56); Albumin, Serum 3.8 g/dL (3.2-5.0); Alkaline Phosphatase 77 U/L (45-117); Anion Gap 5 (5-15); BUN 15 mg/dL (7-18); BUN/Creat Ratio 15.8 RATIO (10-20); Bilirubin, Direct 0.13 mg/dL (0.00-0.30); Calcium,Total 9.3 mg/dL (8.5-10.1); Chloride 104 mmol/L (98-107); Cholesterol 169 mg/dL (200); Creatinine, Serum 0.95 mg/dL (0.55-1.02); EST Glomerular Filtration Rate 64 mL/min (>60); Est Glom Filt Rate - Afr Amer 77 mL/min (>60); Globulin 3.7 g/dL (2.2-4.2); Glucose 97 mg/dL (74-106); High Density Lipoprotein 48 mg/dL; Potassium 3.7 mmol/L (3.5-5.1); Protein, Total 7.5 g/dL (6.4-8.2); Sodium Level 139 mmol/L (136-145); Triglycerides 145 mg/dL; Very Low Density Lipoprotein 29 mg/dL (5-40)
== END ==
PROVIDERS: Internal Medicine Cardiovascular Disease; PCP Family Medicine; Referring Provider Family Medicine; Visit Provider Family Medicine
DX: Z00.00 Encounter for general adult medical examination without abnormal findings (principal); I10 Essential (primary) hypertension; E78.00 Pure hypercholesterolemia, unspecified
CPT/HCPCS: 36415; 80048; 80061; 80076; 85027

== ENCOUNTER → 2021-01-01 15:09 | Outpatient (CLI) | payer OTHER, SELFPAY ==
[2020-07-24 16:12] VITALS: BMI 32.8
--- NOTE | 2021-01-01 15:17 | BI_ITS ---
MAMMOGRAPHY - BILATERAL SCREENING REASON FOR EXAM: Female, 60 years old. Routine annual screening examination. PERTINENT HISTORY: Aunt with breast cancer. TECHNIQUE: Digital bilateral breast cristian (3D mammographic acquisition) in the CC and MLO projections. 2-D mediolateral oblique (MLO) and craniocaudad (CC) views of both breasts were obtained. CAD: Full Field Digital Mammography with Computer Added Detection was performed. COMPARISON: Comparison is made with prior study dated 12/17/2019 and 12/24/2019. FINDINGS: Breast Composition: There are scattered areas of fibroglandular density. There are no dominant masses or suspicious calcifications. A tissue clip marker is once again seen in the upper lateral aspect of the right breast. No other significant abnormalities are identified. There has been no significant change since the prior study. BI/SCRN MAMM (CAD)W/CRISTIAN BILAT IMPRESSION: Stable bilateral screening mammogram. Yearly follow-up mammogram recommended. (A) ASSESSMENT CATEGORY: BIRADS Category 2: Benign. A letter regarding these results will be sent to the patient by the facility within 30 days. Approximately 10% of breast cancers are not detected by mammography. A normal mammogram should not delay biopsy of a clinically suspicious abnormality. [id number] Electronically Signed: Toby Jasso MD at 8:44 EDT , Service support ,
== END ==
PROVIDERS: PCP Family Medicine; Referring Provider Student in an Organized Health Care Education/Training Program; Visit Provider Student in an Organized Health Care Education/Training Program
DX: Z12.31 Encounter for screening mammogram for malignant neoplasm of breast (principal)
CPT/HCPCS: 77063; 77067

== ENCOUNTER 2021-01-24 10:48 | Inpatient (IN) | payer OTHER, SELFPAY ==
[2020-07-24 16:12] VITALS: BMI 32.8
[2021-01-24] VITALS (12 sets, daily range): BP systolic 147–179; BP diastolic 67–85; PULSE 69–81; RESP 12–19; TEMP 36.3–36.9; O2SAT 95–100; BMI 32.8; BMI 33.1
--- NOTE | 2021-01-24 11:10 | EDS_ITS ---
HPI History of Present Illness Chief Complaint: Lower Extremity Injury Informant: patient Onset/Context/Timing Onset: Today Context: Gradual Onset Current Severity: Moderate Maximum Severity: Moderate Narrative Narrative: Patient presents after a fall. Patient states that she was going down some steps. She rolled her left ankle. She states it did not hurt at that time and almost felt as if she had a pop it back into place. She has now developed increasing pain and swelling. She did fall forward and does complain of pain to the bilateral wrist, right greater than left. She denies striking her head. She is not on anticoagulants. [facility] Medical History (Updated 01/24/21 @ 13:[address] Mell Trivedi MD) Abnormal mammogram of right breast Abnormal stress test Abnormal ultrasound of breast Acid reflux Chest pain Essential (primary) hypertension Fibromyalgia IBS (irritable bowel syndrome) Migraines ABDULAZIZ (obstructive sleep apnea) Osteoarthritis Pure hypercholesterolemia Home Medications temazepam 15 mg capsule 15 mg PO QHS PRN 11/11/17 [History Last Taken Unknown] albuterol sulfate 90 mcg/actuation aerosol inhaler 1 puff INHALATION Q6H PRN 05/07/18 [History Last Taken Unknown] ccatsnu-sascyskjd-kexbyxl D2 500 mg-50 mg-100 unit chewable tablet 1 tab PO QDAY tab 05/07/18 [History Last Taken Unknown] melatonin 5 mg tablet 5 mg PO HS PRN 05/07/18 [History Last Taken Unknown] vitamin B complex 1 tab PO DAILY 05/07/18 [History Last Taken Unknown] simvastatin 20 mg tablet 20 mg PO DAILY tab 05/25/18 [History Last Taken Unknown] aspirin 81 mg tablet,delayed release 81 mg PO DAILY 06/03/18 [History Last Taken Unknown] cholecalciferol (vitamin D3) 10 mcg (400 unit) capsule 400 unit PO DAILY 06/24/19 [History Last Taken Unknown] duloxetine 30 mg capsule,delayed release 30 mg PO .QOD #90 cap 06/24/19 [History Last Taken Unknown] potassium chloride 8 mEq capsule,extended release 99 meq PO DAILY cap 06/24/19 [History Last Taken Unknown] omeprazole 20 mg capsule,delayed release 20 mg PO DAILY 12/20/19 [History Last Taken Unknown] cetirizine 10 mg tablet 10 mg PO QDAY PRN 07/24/20 [History Last Taken Unknown] hydrochlorothiazide 25 mg tablet 25 mg PO DAILY 07/24/20 [History Last Taken Unknown] propranolol 60 mg tablet 60 mg PO DAILY PRN tab 07/24/20 [History Last Taken Unknown] Allergy/AdvReac Type Severity Reaction Status Date / Time No Known Allergies Allergy Verified 01/24/21 10:51 Family History Father Heart disease Sister Myocardial infarction Mother Arrhythmia Heart disease Diabetes CHF (congestive heart failure) Thyroid disorder Brother Arrhythmia Myocardial infarction Brother Arrhythmia ASVD (arteriosclerotic vascular disease) Heart disease Sister Sarcoidosis Daughter Thyroid disorder Surgical History History of breast biopsy History of foot surgery Hx of colonoscopy Social History Smoking Status: Never smoker second hand exposure: No alcohol intake: never substance use type: does not use caffeine: Yes what type of physical activity do you participate in: none frequency: does not exercise ROS ROS ED Constitutional Constitutional ED: Denies chills or fever(s) Eyes Eyes: Denies change in vision ENT ENT ED: Denies sore throat Cardiovascular Cardiovascular: Denies chest pain Respiratory/Chest Respiratory/Chest: Denies cough or dyspnea Gastrointestinal Gastrointestinal: Denies abdominal pain, diarrhea, nausea or vomiting Genitourinary Genitourinary ED: Denies dysuria Musculoskeletal Musculoskeletal: Reports arthralgias; Denies back pain Integumentary Reports Abrasions and rash Neurologic Neurologic: Denies headache(s) or weakness Psychiatric Psychiatric: Denies anxiety or depression Endocrine Endocrinology: Denies polydipsia or polyuria Allergic/Immunologic Allergic/Immunologic ED: Denies urticaria EXAM Physical Exam Const Vital Signs: 01/24/21 10:49 01/24/21 12:09 01/24/21 12:38 Temperature 97.3 F L Temperature Source Temporal Pulse Rate 74 73 75 Pulse Rate [1 (Initial Baseline)] Pulse Rate [2] Pulse Rate [3] Respiratory Rate 16 16 16 Respiratory Rate [1 (Initial Baseline)] Respiratory Rate [2] Respiratory Rate [3] Blood Pressure 165/85 H 179/75 H 172/77 H Blood Pressure [1 (Initial Baseline)] Blood Pressure [2] Blood Pressure [3] Blood Pressure Mean 111 108 Pulse Ox 96 97 98 Oxygen Delivery Method Room Air Room Air Room Air Oxygen Delivery Method [1 (Initial Baseline)] Oxygen Delivery Method [2] Oxygen Delivery Method [3] Oxygen Flow Rate (L/min) [1 (Initial Baseline)] Oxygen Flow Rate (L/min) [2] Oxygen Flow Rate (L/min) [3] 01/24/21 12:45 01/24/21 12:57 01/24/21 13:02 Temperature Temperature Source Pulse Rate 77 69 Pulse Rate [1 (Initial Baseline)] 75 Pulse Rate [2] 74 Pulse Rate [3] 75 Respiratory Rate 13 15 Respiratory Rate [1 (Initial Baseline)] 12 Respiratory Rate [2] 16 Respiratory Rate [3] 14 Blood Pressure 166/73 H 159/71 H Blood Pressure [1 (Initial Baseline)] 171/79 H Blood Pressure [2] 169/71 H Blood Pressure [3] 166/73 H Blood Pressure Mean Pulse Ox 100 96 Oxygen Delivery Method Room Air Room Air Oxygen Delivery Method [1 (Initial Baseline)] Nasal Cannula Oxygen Delivery Method [2] Nasal Cannula Oxygen Delivery Method [3] Nasal Cannula Oxygen Flow Rate (L/min) [1 (Initial Baseline)] 5 Oxygen Flow Rate (L/min) [2] 5 Oxygen Flow Rate (L/min) [3] 2 01/24/21 13:07 01/24/21 13:21 Temperature Temperature Source Pulse Rate 73 72 Pulse Rate [1 (Initial Baseline)] Pulse Rate [2] Pulse Rate [3] Respiratory Rate 12 19 H Respiratory Rate [1 (Initial Baseline)] Respiratory Rate [2] Respiratory Rate [3] Blood Pressure 162/72 H 157/83 H Blood Pressure [1 (Initial Baseline)] Blood Pressure [2] Blood Pressure [3] Blood Pressure Mean 107 Pulse Ox 96 96 Oxygen Delivery Method Room Air Room Air Oxygen Delivery Method [1 (Initial Baseline)] Oxygen Delivery Method [2] Oxygen Delivery Method [3] Oxygen Flow Rate (L/min) [1 (Initial Baseline)] Oxygen Flow Rate (L/min) [2] Oxygen Flow Rate (L/min) [3] Positive well nourished and well developed General Appearance ED: well developed HEENT Reports normocephalic and head/scalp atraumatic Eyes PERRL and EOMs intact bilaterally Neck supple Chest Wall inspection of chest normal and palpation of chest normal Resp normal respiratory effort and clear to auscultation bilaterally Cardio regular rate and regular rhythm GI normal to inspection, nondistended, normoactive bowel sounds Palpation: soft Extremity Extremity Narrative: Abrasions to the anterior left wrist with no bony tenderness. Mild tenderness on the right wrist along the radial surface. Full range of motion. Left lower extremity examination reveals significant edema and tenderness medial greater than lateral of the ankle. Strong distal pulses in her foot. No tenderness at the knee. Neuro oriented x3 and no sensory deficits noted Sensorium / Orientation: alert Psych mental status grossly normal Skin no rashes or lesions noted MDM MDM MDM Narrative Medical decision making narrative: Patient was initially given oxycodone. X- rays of the left ankle and right wrist are obtained. Patient does have trimalleolar ankle fracture noted on x-ray per my interpretation and is then ordered IV with lab work and medication for procedural sedation Lab Data Attestation: I reviewed the patient's lab results. Labs: Laboratory Results - last 24 hr 01/24/21 01/24/21 12:07 12:07 WBC 10.3 RBC 4.60 Hgb 13.8 Hct 42.4 MCV 92.2 MCH 30.0 MCHC 32.5 RDW Std Deviation 44.1 H RDW Coeff of Ej 13.1 Plt Count 282 MPV 10.1 Immature Gran % (Auto) 0.500 Neut % (Auto) 74.4 H Lymph % (Auto) 18.5 L [place] % (Auto) 4.4 Eos % (Auto) 1.8 Baso % (Auto) 0.4 Absolute Neuts (auto) 7.7 Absolute Lymphs (auto) 1.90 Nucleated RBC % 0 Sodium 140 Potassium 3.6 Chloride 105 Carbon Dioxide 29.0 Anion Gap 6 BUN 16 Creatinine 0.93 Estim Creat Clear Calc 64.89 Est GFR (MDRD) Af Amer 79 Est GFR (MDRD) Non-Af 65 BUN/Creatinine Ratio 17.2 Glucose 117 H Calcium 9.2 Radiography Diagnostic Testing: Radiology Impression Ankle X-Ray 01/24/21 11:35 IMPRESSION: Acute displaced fractures in the distal tibia and fibula as described above. The distal tibial fracture is osteochondral. Both distal fracture fragments maintain anatomic alignment with the talus. Medial displacement of the distal tibia relative to the talus by one half width of the tibia. Diffuse soft tissue swelling Posterior malleolar fracture also suspected though seen only on the lateral view Electronically Signed: Neeraj Munguia MD at 11:55 EDT , Service support , Wrist X-Ray 01/24/21 11:35 IMPRESSION: Severe first CMC joint arthrosis with subluxation. No demonstrated fracture or suspicious osseous lesion No significant soft tissue swelling Electronically Signed: Neeraj Munguia MD at 11:56 EDT , Service support , Ankle X-Ray 01/24/21 12:56 IMPRESSION: Near anatomic alignment after closed reduction of fractures of the distal tibia, and fibula. Anatomic alignment of the ankle mortise after closed reduction Follow up recommended to assure complete osseous union Electronically Signed: Neeraj Munguia MD at 13:17 EDT , Service support , Treatment and Re-Evaluation Comments:: Test results discussed with patient and at bedside. Patient consented for procedural sedation. Patient was given a total of 50 mg of propofol. Left ankle is reduced with traction and splinted. Patient discussed with Dr. Wright who the patient has seen in the past. She will be out of town and is unable to perform the patient surgery. I spoke with Dr. Dillon, on- call for foot and ankle. She reviewed the images and will admit the patient for surgery tomorrow. Patient and have been updated at bedside. Discharge Plan Triage Chief Complaint: Lower Extremity Injury ED Provider: Mell Trivedi Dx/Rx/DC Orders Clinical Impression: Closed trimalleolar fracture of ankle Prescriptions: No Action temazepam 15 mg capsule 15 mg PO QHS PRN (Reason: Insomnia) RF: 0 cetirizine [Zyrtec] 10 mg tablet 10 mg PO QDAY PRN (Reason: Allergy Symptoms) RF: 0 melatonin 5 mg tablet 5 mg PO HS PRN (Reason: Insomnia) RF: 0 albuterol sulfate [Ventolin HFA] 90 mcg/actuation HFA aerosol inhaler 1 puff INHALATION Q6H PRN (Reason: Sob &/Or Wheezing) RF: 0 vitamin B complex [B Complex-Vitamin B12] tablet 1 tab PO DAILY RF: 0 rupffby-cigdoyxja-twstkki D2 500 mg-50 mg-100 unit chewable tablet 500-50-100 mg-mg-unit tablet,chewable 1 tab PO QDAY RF: 0 potassium chloride 8 mEq capsule, extended release 99 meq PO DAILY RF: 0 cholecalciferol (vitamin D3) 400 unit capsule 400 unit PO DAILY RF: 0 duloxetine 30 mg capsule,delayed release(DR/EC) 30 mg PO .QOD Qty: 90 RF: 0 hydrochlorothiazide 25 mg tablet 25 mg PO DAILY RF: 0 propranolol 60 mg tablet 60 mg PO DAILY PRN (Reason: Headache) RF: 0 omeprazole 20 mg capsule,delayed release(DR/EC) 20 mg PO DAILY RF: 0 simvastatin 20 mg tablet 20 mg PO DAILY RF: 0 aspirin 81 mg tablet,delayed release (DR/EC) 81 mg PO DAILY RF: 0 Primary Care Provider: Margarita Meza Referrals: Margarita Meza DO [Primary Care Provider] - Disposition Disposition: Acute Care Hospital [facility]
[2021-01-24] MEDS: oxyCODONE 5 MG Tablet PO (11:19)
--- NOTE | 2021-01-24 11:35 | RAD_ITS ---
STUDY: X-RAY - RIGHT WRIST REASON FOR EXAM: Female, 60 years old. Injury TECHNIQUE: 3 view(s) of the wrist were obtained. COMPARISON: None. FINDINGS: Normal visualized distal radius and ulna. Normal radiocarpal articulation. Normal distal radioulnar articulation. Normal carpal bones. Normal carpal articulations. There is degenerative arthrosis of the carpometacarpal articulation of the thumb with subluxation. Normal second through fifth carpometacarpal articulations. Normal visualized metacarpal bones. The soft tissue structures are unremarkable. RAD/Wrist min 3 Views IMPRESSION: Severe first CMC joint arthrosis with subluxation. No demonstrated fracture or suspicious osseous lesion No significant soft tissue swelling Electronically Signed: Neeraj Munguia MD at 11:56 EDT , Service support ,
--- NOTE | 2021-01-24 11:35 | RAD_ITS ---
STUDY: X-RAY - LEFT ANKLE REASON FOR EXAM: Female, 60 years old. Pain and swelling TECHNIQUE: 3 view(s) of the ankle. COMPARISON: None. FINDINGS: There is an acute, minimally displaced, spiral fracture in the distal fibula with associated soft tissue swelling. The distal fibular fracture fragment is displaced laterally by one quarter width of the fibula. The distal fracture fragment maintains anatomic alignment with the talus. There is an acute, displaced, osteochondral fracture of the medial malleolus as well. The distal fracture fragment maintains anatomic alignment with the talus, the distal tibia is displaced medially by one half width of the tibia and there is abnormal widening of the tibiotalar joint space suggesting ligamentous disruption. The lateral film does not show anterior posterior displacement of the distal tibia relative to the talus. I suspect there is also a fracture of the posterior malleolus. There is extensive soft tissue swelling and joint effusion. No demonstrated talar, calcaneal, or navicular fracture. RAD/Ankle min 3 Views IMPRESSION: Acute displaced fractures in the distal tibia and fibula as described above. The distal tibial fracture is osteochondral. Both distal fracture fragments maintain anatomic alignment with the talus. Medial displacement of the distal tibia relative to the talus by one half width of the tibia. Diffuse soft tissue swelling Posterior malleolar fracture also suspected though seen only on the lateral view Electronically Signed: Neeraj Munguia MD at 11:55 EDT , Service support ,
[2021-01-24 12:20] LABS: Absolute Neutrophil Count 7.7 X10^3/uL (2.0-7.7); Basophil# 0.04 X10^3/uL; Basophil% 0.4 % (0-1); Eosinophil# 0.19 X10^3/uL; Eosinophils% 1.8 % (0-5); Hematocrit 42.4 % (37-47); Hemoglobin 13.8 g/dL (12.0-15.0); Lymphocyte % 18.5 % (19-41); Mean Corp Hgb Conc 32.5 g/dL (32-36); Mean Corpuscular Volume 92.2 fL (81-99); Mean Platelet Vol. 10.1 fl (6.2-12.0); Monocyte# 0.45 X10^3/uL; Monocyte% 4.4 % (0-10); NRBC Flagged by Analyzer 0 % (0-5); Neutrophil # 7.65 X10^3/uL (2.7-7.7); Neutrophil % 74.4 % (47-70); Platelet Count 282 K/mm3 (150-450); RBC Distribution Width CV 13.1 % (11.6-14.6); RBC Distribution Width SD 44.1 fl (35.1-43.9); White Blood Count 10.3 K/mm3 (4.4-11.0)
[2021-01-24 12:30] LABS: Anion Gap 6 (5-15); BUN 16 mg/dL (7-18); BUN/Creat Ratio 17.2 RATIO (10-20); Calcium,Total 9.2 mg/dL (8.5-10.1); Chloride 105 mmol/L (98-107); Creatinine, Serum 0.93 mg/dL (0.55-1.02); EST Glomerular Filtration Rate 65 mL/min (>60); Est Glom Filt Rate - Afr Amer 79 mL/min (>60); Estimated Creatinine Clearance 64.89 ml/min; Glucose 117 mg/dL (74-106); Potassium 3.6 mmol/L (3.5-5.1); Sodium Level 140 mmol/L (136-145)
--- NOTE | 2021-01-24 12:56 | RAD_ITS ---
STUDY: X-RAY - LEFT ANKLE REASON FOR EXAM: Female, 60 years old. Post-reduction TECHNIQUE: 2 view(s) of the ankle. COMPARISON: Earlier today FINDINGS: Since the previous study, patient has undergone closed reduction of a trimalleolar fracture and subluxation of the ankle mortise. A fiberglass splint supports the left lower extremity making fine bony detail difficult. After closed reduction, there is near anatomic alignment of the ankle mortise and fractures in the distal tibia and fibula. Follow-up is recommended to assure osseous union. RAD/Ankle 2 Views IMPRESSION: Near anatomic alignment after closed reduction of fractures of the distal tibia, and fibula. Anatomic alignment of the ankle mortise after closed reduction Follow up recommended to assure complete osseous union Electronically Signed: Neeraj Munguia MD at 13:17 EDT , Service support ,
[2021-01-24] MEDS: Propofol 200 MG/20 ML Vial IV BOLUS (12:59)
--- NOTE | 2021-01-24 13:37 | CT_ITS ---
EXAM: CT LEFT LOWER EXTREMITY WITHOUT INTRAVENOUS CONTRAST, ANKLE : 1960 CLINICAL INDICATION: ankle fracture TECHNIQUE: Helically acquired images were obtained of the left ankle without intravenous contrast. 2-D reformats were performed by the technologist. This CT exam was performed using one or more of the following dose reduction techniques: automated exposure control, adjustment of the mA and/or kV according to patient size, and/or use of iterative reconstruction technique. This report was created using [employer] report [employer] technology. COMPARISON: None. FINDINGS: BONES/JOINTS: There is a fracture of the distal fibula. There are fractures of the medial and posterior malleolar. There is mild lateral subluxation of the talus in relation to the tibia. There is also a small avulsion fracture of the lateral aspect of the distal tibia SOFT TISSUES: There is edema in the subcutaneous tissues. No radiopaque foreign body. CT/Extremity Lower without Contra IMPRESSION: Trimalleolar fracture with minimal widening of the medial tibial talar joint. There is also a fracture of the lateral aspect of the distal tibia. Individualized dose optimization techniques were used for this CT. at 1501 Reported and signed by: Yonis Spear MD Electronically Signed: Yonis Spear MD at 15:00 EDT Tel , Service support ,
--- NOTE | 2021-01-24 13:37 | EKG12_ITS ---
Test Reason : ANKLE FX Blood Pressure : / mmHG Vent. Rate : 071 BPM Atrial Rate : 071 BPM P-R Int : 184 ms QRS Dur : 076 ms QT Int : 428 ms P-R-T Axes : 051 071 078 degrees QTc Int : 465 ms Sinus rhythm with occasional Premature ventricular complexes and Premature atrial complexes Otherwise normal ECG Confirmed by YAHAIRA WALTON, GERSON ([id number]), city editor MARIBELL FRANCO ([id number]) on 01/26/2021 11:40:22 A M Referred By: KYE Confirmed By:MILAGRO SYED MD
--- NOTE | 2021-01-24 13:47 | NURSING ---
MED SURG LT ANKLE FX FASCIONE
--- NOTE | 2021-01-24 13:49 | NURSING ---
NO OLD EKGS
[2021-01-24] MEDS: oxyCODONE 5 MG Tablet 10 MG PO (16:10)
--- NOTE | 2021-01-24 17:05 | PCM.HP.STD ---
[facility] - General General Date of Admission: 01/24/21 Chief Complaint: Left ankle fracture [facility] Narrative JOHANNA DOVE, is a 60 F who presented to the ER following a fall at 9 AM this morning when she was descending a step. She denies other injuries or loss of consciousness. She rates her pain as an aching 6 out of 10 with some improvement after reduction in the emergency room. She is resting comfortable at this time and her is bedside. Prior to this injury, she denies previous history of fractures, claudication, or delayed healing. She previously had some sort of paresthesia which was relieved with the use of B vitamins. She denies prior anesthesia complications. She lives at home with her and does have stairs. 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 [facility], [facility] Medical History (Updated 01/24/21 @ 21:15 by Fritz Turner) Abnormal mammogram of right breast Abnormal stress test Abnormal ultrasound of breast Acid reflux Anxiety Atrial fibrillation Chest pain CPAP (continuous positive airway pressure) dependence Essential (primary) hypertension Fibromyalgia High cholesterol History of stress test IBS (irritable bowel syndrome) Injury of head and neck Migraines ABDULAZIZ (obstructive sleep apnea) Osteoarthritis Post-menopausal Pure hypercholesterolemia Sleep apnea Home Medications temazepam 15 mg capsule 15 mg PO QHS PRN 11/11/17 [History Last Taken 01/22/21] albuterol sulfate 90 mcg/actuation aerosol inhaler 1 puff INHALATION Q6H PRN 05/07/18 [History Last Taken Unknown] jqcdosf-idmsnlgly-xketiri D2 500 mg-50 mg-100 unit chewable tablet 1 tab PO DAILY tab 05/07/18 [History Last Taken 01/22/21] vitamin B complex 1 tab PO DAILY 05/07/18 [History Last Taken 01/22/21] simvastatin 20 mg tablet 20 mg PO DAILY tab 05/25/18 [History Last Taken 01/23/21] aspirin 81 mg tablet,delayed release 81 mg PO DAILY 06/03/18 [History Last Taken 01/23/21] duloxetine 30 mg capsule,delayed release 30 mg PO QODAY #90 cap 06/24/19 [History Last Taken 01/23/21] potassium chloride 8 mEq capsule,extended release 99 meq PO DAILY cap 06/24/19 [History Last Taken 01/22/21] omeprazole 20 mg capsule,delayed release 20 mg PO DAILY PRN 12/20/19 [History Last Taken 01/22/21] cetirizine 10 mg tablet 10 mg PO DAILY 07/24/20 [History Last Taken 01/23/21] hydrochlorothiazide 25 mg tablet 25 mg PO DAILY 07/24/20 [History Last Taken 01/23/21] propranolol 60 mg tablet 60 mg PO DAILY PRN tab 07/24/20 [History Last Taken 01/21/21] melatonin 6 mg PO QHS 01/24/21 [History Last Taken 01/23/21] Allergy/AdvReac Type Severity Reaction Status Date / Time No Known Allergies Allergy Verified 01/24/21 10:51 Family History Father Heart disease Sister Myocardial infarction Mother Arrhythmia Heart disease Diabetes CHF (congestive heart failure) Thyroid disorder Brother Arrhythmia Myocardial infarction Brother Arrhythmia ASVD (arteriosclerotic vascular disease) Heart disease Sister Sarcoidosis Daughter Thyroid disorder Surgical History (Updated 01/24/21 @ 21:15 by Fritz Turner) H/O cardiac catheterization History of breast biopsy History of foot surgery Hx of colonoscopy Social History Smoking Status: Never smoker second hand exposure: No alcohol intake: never substance use type: does not use caffeine: Yes what type of physical activity do you participate in: none frequency: does not exercise ROS Constitutional Constitutional: Denies chills or fever(s) ENT HEENT: Denies sore throat Cardiovascular Cardiovascular: Denies chest pain Respiratory/Chest Respiratory/Chest: Denies cough or dyspnea Gastrointestinal Gastrointestinal: Denies abdominal pain, diarrhea, nausea or vomiting Genitourinary Genitourinary: Denies dysuria Musculoskeletal Musculoskeletal: Reports arthralgias; Denies back pain Neurologic Neurologic: Denies headache(s) or weakness Psychiatric Psychiatric: Denies anxiety or depression Endocrine Endocrinology: Denies polydipsia or polyuria Allergic/Immunologic Allergic/Immunologic: Denies urticaria Vital Signs Vital Signs Vital Signs: 01/24/21 10:49 01/24/21 12:09 01/24/21 12:38 Temperature 97.3 F L Temperature Source Temporal Pulse Rate 74 73 75 Pulse Rate [1 (Initial Baseline)] Pulse Rate [2] Pulse Rate [3] Respiratory Rate 16 16 16 Respiratory Rate [1 (Initial Baseline)] Respiratory Rate [2] Respiratory Rate [3] Blood Pressure 165/85 H 179/75 H 172/77 H Blood Pressure [1 (Initial Baseline)] Blood Pressure [2] Blood Pressure [3] Blood Pressure Mean 111 108 Blood Pressure Source Blood Pressure Position Blood Pressure Location Pulse Ox 96 97 98 Oxygen Delivery Method Room Air Room Air Room Air Oxygen Delivery Method [1 (Initial Baseline)] Oxygen Delivery Method [2] Oxygen Delivery Method [3] Oxygen Flow Rate (L/min) [1 (Initial Baseline)] Oxygen Flow Rate (L/min) [2] Oxygen Flow Rate (L/min) [3] 01/24/21 12:45 01/24/21 12:57 01/24/21 13:02 Temperature Temperature Source Pulse Rate 77 69 Pulse Rate [1 (Initial Baseline)] 75 Pulse Rate [2] 74 Pulse Rate [3] 75 Respiratory Rate 13 15 Respiratory Rate [1 (Initial Baseline)] 12 Respiratory Rate [2] 16 Respiratory Rate [3] 14 Blood Pressure 166/73 H 159/71 H Blood Pressure [1 (Initial Baseline)] 171/79 H Blood Pressure [2] 169/71 H Blood Pressure [3] 166/73 H Blood Pressure Mean Blood Pressure Source Blood Pressure Position Blood Pressure Location Pulse Ox 100 96 Oxygen Delivery Method Room Air Room Air Oxygen Delivery Method [1 (Initial Baseline)] Nasal Cannula Oxygen Delivery Method [2] Nasal Cannula Oxygen Delivery Method [3] Nasal Cannula Oxygen Flow Rate (L/min) [1 (Initial Baseline)] 5 Oxygen Flow Rate (L/min) [2] 5 Oxygen Flow Rate (L/min) [3] 2 01/24/21 13:07 01/24/21 13:21 01/24/21 14:05 Temperature 98.0 F Temperature Source Oral Pulse Rate 73 72 69 Pulse Rate [1 (Initial Baseline)] Pulse Rate [2] Pulse Rate [3] Respiratory Rate 12 19 H 15 Respiratory Rate [1 (Initial Baseline)] Respiratory Rate [2] Respiratory Rate [3] Blood Pressure 162/72 H 157/83 H 147/80 H Blood Pressure [1 (Initial Baseline)] Blood Pressure [2] Blood Pressure [3] Blood Pressure Mean 107 102 Blood Pressure Source Blood Pressure Position Blood Pressure Location Pulse Ox 96 96 95 Oxygen Delivery Method Room Air Room Air Room Air Oxygen Delivery Method [1 (Initial Baseline)] Oxygen Delivery Method [2] Oxygen Delivery Method [3] Oxygen Flow Rate (L/min) [1 (Initial Baseline)] Oxygen Flow Rate (L/min) [2] Oxygen Flow Rate (L/min) [3] 01/24/21 15:56 Temperature 98.0 F Temperature Source Oral Pulse Rate 70 Pulse Rate [1 (Initial Baseline)] Pulse Rate [2] Pulse Rate [3] Respiratory Rate 18 Respiratory Rate [1 (Initial Baseline)] Respiratory Rate [2] Respiratory Rate [3] Blood Pressure 151/67 H Blood Pressure [1 (Initial Baseline)] Blood Pressure [2] Blood Pressure [3] Blood Pressure Mean 95 Blood Pressure Source Monitor Blood Pressure Position Semi-Fowlers Blood Pressure Location Right Arm Pulse Ox 99 Oxygen Delivery Method Room Air Oxygen Delivery Method [1 (Initial Baseline)] Oxygen Delivery Method [2] Oxygen Delivery Method [3] Oxygen Flow Rate (L/min) [1 (Initial Baseline)] Oxygen Flow Rate (L/min) [2] Oxygen Flow Rate (L/min) [3] Physical Exam Const alert, oriented x3 and no apparent distress General Appearance: cooperative and comfortable Orientation / Consciousness: awake Exam Limitations: no limitations HEENT normocephalic Cardio Peripheral Pulses: posterior tibial pulses present right and left (unable to assess with splint) and dorsalis pedis pulses present right 2+ and left 2+ GI Inspection: localized swelling and other Other Details: Left lower limb splint is clean, dry, and intact in a rectus position. No adjacent erythema. Open wound was not reported by emergency room staff noted. Extremity normal to inspection and normal capillary refill Extremity Narrative: Bilateral feet are warm to touch. Capillary fill time is brisk to all 10 digits. Active range of motion digits x10. Negative Crabtree sign bilateral. No pain on palpation to the fibular head, left. Posterior mold splint in place to left lower extremity. Neuro oriented x3 Psych thought process normal and cooperative Lab / Micro Data Result Diagrams: 01/24/21 12:07 01/24/21 12:07 Labs: Laboratory Results - last 24 hr 01/24/21 01/24/21 12:07 12:07 WBC 10.3 RBC 4.60 Hgb 13.8 Hct 42.4 MCV 92.2 MCH 30.0 MCHC 32.5 RDW Std Deviation 44.1 H RDW Coeff of Ej 13.1 Plt Count 282 MPV 10.1 Immature Gran % (Auto) 0.500 Neut % (Auto) 74.4 H Lymph % (Auto) 18.5 L [place] % (Auto) 4.4 Eos % (Auto) 1.8 Baso % (Auto) 0.4 Absolute Neuts (auto) 7.7 Absolute Lymphs (auto) 1.90 Nucleated RBC % 0 Sodium 140 Potassium 3.6 Chloride 105 Carbon Dioxide 29.0 Anion Gap 6 BUN 16 Creatinine 0.93 Estim Creat Clear Calc 64.89 Est GFR (MDRD) Af Amer 79 Est GFR (MDRD) Non-Af 65 BUN/Creatinine Ratio 17.2 Glucose 117 H Calcium 9.2 Radiology Impression Ankle X-Ray 01/24/21 11:35 IMPRESSION: Acute displaced fractures in the distal tibia and fibula as described above. The distal tibial fracture is osteochondral. Both distal fracture fragments maintain anatomic alignment with the talus. Medial displacement of the distal tibia relative to the talus by one half width of the tibia. Diffuse soft tissue swelling Posterior malleolar fracture also suspected though seen only on the lateral view Electronically Signed: Neeraj Munguia MD at 11:55 EDT , Service support , Wrist X-Ray 01/24/21 11:35 IMPRESSION: Severe first CMC joint arthrosis with subluxation. No demonstrated fracture or suspicious osseous lesion No significant soft tissue swelling Electronically Signed: Neeraj Munguia MD at 11:56 EDT , Service support , Ankle X-Ray 01/24/21 12:56 IMPRESSION: Near anatomic alignment after closed reduction of fractures of the distal tibia, and fibula. Anatomic alignment of the ankle mortise after closed reduction Follow up recommended to assure complete osseous union Electronically Signed: Neeraj Munguia MD at 13:17 EDT , Service support , Lower Extremity CT 01/24/21 13:37 IMPRESSION: Trimalleolar fracture with minimal widening of the medial tibial talar joint. There is also a fracture of the lateral aspect of the distal tibia. Individualized dose optimization techniques were used for this CT. at 1501 Reported and signed by: Yonis Spear MD Electronically Signed: Yonis Spear MD at 15:00 EDT Tel , Service support , Assessment & Plan Assessment/Plan (1) Left ankle pain: QUALIFIERS: Chronicity: acute Qualified Code(s): M25.572 - Pain in left ankle and joints of left foot (2) Walking difficulty due to ankle and foot: (3) Closed trimalleolar fracture of ankle: PLAN: I reviewed and discussed her case including diagnostic data. She has an unstable left ankle fracture. We discussed surgical intervention as an option and she elects to proceed. Xray demonstrates tibiotalar dislocation with trimalleolus ankle fracture pattern. CT scan comfirms the parameters of these fractures. To maintain non weight bearing status left. PT/OT will work with her after surgery. To ice and elevate for pain control. To keep splint clean, dry, intact. I recommend surgery tomorrow including ORIF left ankle fracture with internal fixation and possible external fixation if skin envelope is compromised. Consent will be obtained. I reviewed the surgical indications, benefits, risks, complications, anticipated healing time and management with the patient and her . No guarantees were made and she elects to proceed tomorrow as early as 13:30. Anticipated anesthesia is general and regional. 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 I answered all of her questions. Anticoagulation medications will be held and NPO order placed. Hospitalist, Dr. Pedro, was also consulted for preoperative risk assessment and medical management and is greatly appreciated. No gross abnormalities with cbc or cmp. She relates she was once prediabetic and HgA1c was ordered. Additional Vit D was ordered to screen for deficiency. Her prior cardiac cath and h/o murmer is noted including her other main comorbidities of sleep apnea and fibromyalgia. Preoperative EKG ordered. She denies history of personal or family clotting disorders or blood clots. She is a non smoker. Please do not hesitate to call if you have any questions. Anusha Dillon DPM, [facility] [phone]
--- NOTE | 2021-01-24 17:27 | PCM.CONS.GEN ---
Documented by User: Osorio BROWN 01/24/21 17:44 Assessment & Plan Assessment/Plan (1) Left ankle pain: QUALIFIERS: Chronicity: acute Qualified Code(s): M25.572 - Pain in left ankle and joints of left foot (2) Walking difficulty due to ankle and foot: (3) Closed trimalleolar fracture of ankle: PLAN: 1) Closed Trimalleolar fracture of ankle CT of the lower extremity demonstrates left trimalleolar ankle fracture and talo tubular dislocation. Plan; open reduction internal fixation of the left ankle fracture with internal fixation planned for 01/25/[address] Dillon, oxycodone 10 mg p.o. every 4 as needed, Zofran every 8 as needed, vitamin D ordered to to screen for deficiency, prediabetic hemoglobin A1c ordered. 2) HTN Continue hydrochlorothiazide 3) GERD Continue PPI 4) Depression Continue duloxetine DVT Prophylaxis - not indicated Patient seen by Osorio Cotto PA-C, under the supervision of Dr. Pedro. HPI Consult Data Date of Consult: 01/24/21 HPI Narrative Reason for Consultation: Pre-surgical consultation. HPI Narrative: Patient is a 60-year-old female who presents for consultation from the hospital medicine team after suffering a fall descending down a step this morning. After the fall patient states that she rolled her left ankle, initially at the time of injury there was no pain however she did hear a pop of her ankle. Subsequently patient has been developing increasing pain and swelling. Patient did fall forward and is also complaining of bilateral wrist pain, right greater than left. Patient denies striking her head or losing consciousness. X-ray of the right wrist demonstrated no acute fracture. X-ray of the left ankle demonstrated a near anatomic alignment after closed reduction of the distal tibia and fibula. CT of the left lower extremity demonstrated a trimalleolar fracture with fracture of the lateral aspect of the distal tibia. Consult for podiatry was ordered, at which point it was determined the patient had an unstable left ankle fracture and surgical intervention was indicated. [facility] Medical History Abnormal mammogram of right breast Abnormal stress test Abnormal ultrasound of breast Acid reflux Anxiety Atrial fibrillation Chest pain CPAP (continuous positive airway pressure) dependence Essential (primary) hypertension Fibromyalgia High cholesterol History of stress test IBS (irritable bowel syndrome) Migraines ABDULAZIZ (obstructive sleep apnea) Osteoarthritis Post-menopausal Pure hypercholesterolemia Sleep apnea Home Medications temazepam 15 mg capsule 15 mg PO QHS PRN 11/11/17 [History Last Taken 01/22/21] albuterol sulfate 90 mcg/actuation aerosol inhaler 1 puff INHALATION Q6H PRN 05/07/18 [History Last Taken Unknown] vtudjxh-tkrbchehp-sptcajv D2 500 mg-50 mg-100 unit chewable tablet 1 tab PO DAILY tab 05/07/18 [History Last Taken 01/22/21] vitamin B complex 1 tab PO DAILY 05/07/18 [History Last Taken 01/22/21] simvastatin 20 mg tablet 20 mg PO DAILY tab 05/25/18 [History Last Taken 01/23/21] aspirin 81 mg tablet,delayed release 81 mg PO DAILY 06/03/18 [History Last Taken 01/23/21] duloxetine 30 mg capsule,delayed release 30 mg PO QODAY #90 cap 06/24/19 [History Last Taken 01/23/21] potassium chloride 8 mEq capsule,extended release 99 meq PO DAILY cap 06/24/19 [History Last Taken 01/22/21] omeprazole 20 mg capsule,delayed release 20 mg PO DAILY PRN 12/20/19 [History Last Taken 01/22/21] cetirizine 10 mg tablet 10 mg PO DAILY 07/24/20 [History Last Taken 01/23/21] hydrochlorothiazide 25 mg tablet 25 mg PO DAILY 07/24/20 [History Last Taken 01/23/21] propranolol 60 mg tablet 60 mg PO DAILY PRN tab 07/24/20 [History Last Taken 01/21/21] melatonin 6 mg PO QHS 01/24/21 [History Last Taken 01/23/21] Allergy/AdvReac Type Severity Reaction Status Date / Time No Known Allergies Allergy Verified 01/24/21 10:51 Family History Father Heart disease Sister Myocardial infarction Mother Arrhythmia Heart disease Diabetes CHF (congestive heart failure) Thyroid disorder Brother Arrhythmia Myocardial infarction Brother Arrhythmia ASVD (arteriosclerotic vascular disease) Heart disease Sister Sarcoidosis Daughter Thyroid disorder Surgical History History of breast biopsy History of foot surgery Hx of colonoscopy Social History Smoking Status: Never smoker second hand exposure: No alcohol intake: never substance use type: does not use caffeine: Yes what type of physical activity do you participate in: none frequency: does not exercise ROS Constitutional Constitutional: Denies anorexia, change in weight, chills, fatigue, fever(s), malaise, night sweats, weakness or other Eyes Eyes: Denies blurry vision, change in eye color, change in vision, discharge from eye(s), double vision, erythema, eye pain, loss of vision or other ENT HEENT: Denies abnormal hearing, dysphagia, ear pain, epistaxis, headache(s), hearing loss, nasal congestion, nasal discharge, post nasal drip, sinus pressure, sore throat or other Cardiovascular Cardiovascular: Denies chest pain, claudication, dyspnea on exertion, edema, lightheadedness, orthopnea, palpitations, paroxysmal nocturnal dyspnea, rapid heart rate, syncope or other Respiratory/Chest Respiratory/Chest: Denies cough, dyspnea, excessive phlegm production, hemoptysis, productive cough, shortness of breath at rest, shortness of breath with exertion, wheezing or other Gastrointestinal Gastrointestinal: Denies abdominal pain, coffee ground emesis, constipation, diarrhea, dyspepsia, hematemesis, hematochezia, loose stools, melena, nausea, vomiting or other Genitourinary Genitourinary: Denies burning urination, difficulty urinating, dysuria, hematuria, nocturia, urinary frequency, urinary hesitancy, urinary incontinence, urinary urgency or other Musculoskeletal Musculoskeletal: Reports joint pain and joint stiffness Neurologic Neurologic: Denies abnormal gait, abnormal speech, confusion, disequilibrium, dizziness, focal weakness, headache(s), numbness, paresthesias, seizure-like activity, seizures, syncope, tingling, tremor(s) or other Psychiatric Psychiatric: Denies anxiety, depression, homicidal ideation, suicidal ideation or other Endocrine Endocrinology: Denies change in body appearance, cold intolerance, excessive sweating, heat intolerance, polydipsia, polyuria or other Hematologic/Lymphatic Hematologic/Lymphatic: Denies anemia, easy bleeding, easy bruising, lymphadenopathy or other Allergic/Immunologic Allergic/Immunologic: Denies rhinitis, hives, eczemia, asthma or other Physical Exam Const alert and oriented x3 General Appearance: cooperative HEENT normocephalic and head/scalp atraumatic Eyes PERRL and EOMs intact bilaterally Neck no lymphadenopathy, supple and no JVD Resp normal respiratory effort, no use of accessory muscles and clear to auscultation bilaterally Cardio regular rate, regular rhythm, no murmurs and no JVD GI normal to inspection, nondistended, normoactive bowel sounds, soft to palpation, non-tender and non-distended Extremity normal to inspection Skin no rashes or lesions noted, no wounds, skin turgor normal and no jaundice Neuro CN's II-XII intact bilaterally Psych affect normal Lab / Micro Data Result Diagrams: 01/24/21 12:07 01/24/21 12:07 Labs: Laboratory Results - last 24 hr 01/24/21 01/24/21 12:07 12:07 WBC 10.3 RBC 4.60 Hgb 13.8 Hct 42.4 MCV 92.2 MCH 30.0 MCHC 32.5 RDW Std Deviation 44.1 H RDW Coeff of Ej 13.1 Plt Count 282 MPV 10.1 Immature Gran % (Auto) 0.500 Neut % (Auto) 74.4 H Lymph % (Auto) 18.5 L [place] % (Auto) 4.4 Eos % (Auto) 1.8 Baso % (Auto) 0.4 Absolute Neuts (auto) 7.7 Absolute Lymphs (auto) 1.90 Nucleated RBC % 0 Sodium 140 Potassium 3.6 Chloride 105 Carbon Dioxide 29.0 Anion Gap 6 BUN 16 Creatinine 0.93 Estim Creat Clear Calc 64.89 Est GFR (MDRD) Af Amer 79 Est GFR (MDRD) Non-Af 65 BUN/Creatinine Ratio 17.2 Glucose 117 H Calcium 9.2 Radiology Impression Ankle X-Ray 01/24/21 11:35 IMPRESSION: Acute displaced fractures in the distal tibia and fibula as described above. The distal tibial fracture is osteochondral. Both distal fracture fragments maintain anatomic alignment with the talus. Medial displacement of the distal tibia relative to the talus by one half width of the tibia. Diffuse soft tissue swelling Posterior malleolar fracture also suspected though seen only on the lateral view Electronically Signed: Neeraj Munguia MD at 11:55 EDT , Service support , Wrist X-Ray 01/24/21 11:35 IMPRESSION: Severe first CMC joint arthrosis with subluxation. No demonstrated fracture or suspicious osseous lesion No significant soft tissue swelling Electronically Signed: Neeraj Munguia MD at 11:56 EDT , Service support , Ankle X-Ray 01/24/21 12:56 IMPRESSION: Near anatomic alignment after closed reduction of fractures of the distal tibia, and fibula. Anatomic alignment of the ankle mortise after closed reduction Follow up recommended to assure complete osseous union Electronically Signed: Neeraj Munguia MD at 13:17 EDT , Service support , Lower Extremity CT 01/24/21 13:37 IMPRESSION: Trimalleolar fracture with minimal widening of the medial tibial talar joint. There is also a fracture of the lateral aspect of the distal tibia. Individualized dose optimization techniques were used for this CT. at 1501 Reported and signed by: Yonis Spear MD Electronically Signed: Yonis Spear MD at 15:00 EDT Tel , Service support , Documented by User: Dr. Shea Pedro MD 01/24/21 18:30 HPI Consult Data Date of Consult: 01/24/21 [facility] Medical History Abnormal mammogram of right breast Abnormal stress test Abnormal ultrasound of breast Acid reflux Anxiety Atrial fibrillation Chest pain CPAP (continuous positive airway pressure) dependence Essential (primary) hypertension Fibromyalgia High cholesterol History of stress test IBS (irritable bowel syndrome) Migraines ABDULAZIZ (obstructive sleep apnea) Osteoarthritis Post-menopausal Pure hypercholesterolemia Sleep apnea Home Medications temazepam 15 mg capsule 15 mg PO QHS PRN 11/11/17 [History Last Taken 01/22/21] albuterol sulfate 90 mcg/actuation aerosol inhaler 1 puff INHALATION Q6H PRN 05/07/18 [History Last Taken Unknown] owlgsau-nfcelmxht-omqwaqj D2 500 mg-50 mg-100 unit chewable tablet 1 tab PO DAILY tab 05/07/18 [History Last Taken 01/22/21] vitamin B complex 1 tab PO DAILY 05/07/18 [History Last Taken 01/22/21] simvastatin 20 mg tablet 20 mg PO DAILY tab 05/25/18 [History Last Taken 01/23/21] aspirin 81 mg tablet,delayed release 81 mg PO DAILY 06/03/18 [History Last Taken 01/23/21] duloxetine 30 mg capsule,delayed release 30 mg PO QODAY #90 cap 06/24/19 [History Last Taken 01/23/21] potassium chloride 8 mEq capsule,extended release 99 meq PO DAILY cap 06/24/19 [History Last Taken 01/22/21] omeprazole 20 mg capsule,delayed release 20 mg PO DAILY PRN 12/20/19 [History Last Taken 01/22/21] cetirizine 10 mg tablet 10 mg PO DAILY 07/24/20 [History Last Taken 01/23/21] hydrochlorothiazide 25 mg tablet 25 mg PO DAILY 07/24/20 [History Last Taken 01/23/21] propranolol 60 mg tablet 60 mg PO DAILY PRN tab 07/24/20 [History Last Taken 01/21/21] melatonin 6 mg PO QHS 01/24/21 [History Last Taken 01/23/21] Allergy/AdvReac Type Severity Reaction Status Date / Time No Known Allergies Allergy Verified 01/24/21 10:51 Family History Father Heart disease Sister Myocardial infarction Mother Arrhythmia Heart disease Diabetes CHF (congestive heart failure) Thyroid disorder Brother Arrhythmia Myocardial infarction Brother Arrhythmia ASVD (arteriosclerotic vascular disease) Heart disease Sister Sarcoidosis Daughter Thyroid disorder Surgical History History of breast biopsy History of foot surgery Hx of colonoscopy Social History Smoking Status: Never smoker second hand exposure: No alcohol intake: never substance use type: does not use caffeine: Yes what type of physical activity do you participate in: none frequency: does not exercise Lab / Micro Data Result Diagrams: 01/24/21 12:07 01/24/21 12:07 Charges/Coding Visit Charges Inpatient E&M: 61587 Subs Hosp L2 Addendum Patient seen by Osorio Cotto PA-C under my supervision Patient is a 60-year-old female with past medical history as outlined who was admitted through the ED on 01/24/2021 with a complaint of a mechanical fall. She tripped while going down the steps and rolled on her left ankle and sustained severe pain and swelling. She came into the ED and imaging done showed a trimalleolar fracture with fracture of the lateral aspect of the distal tibia. Patient was admitted to podiatry service and she has been managed for unstable left ankle fracture. Hospitalist service was consulted for medical management. Patient seen and examined. She was tearful because of emotional stress from her fracture. Pain was well controlled. Review of systems otherwise negative. She says she has a history of paroxysmal A. fib as well as hypertension and fibromyalgia. She has undergone general anesthesia in the past and says she has never had any problems. O/E: Const alert and oriented x3 General Appearance: cooperative HEENT normocephalic and head/scalp atraumatic Eyes PERRL and EOMs intact bilaterally Neck no lymphadenopathy, supple and no JVD Resp normal respiratory effort, no use of accessory muscles and clear to auscultation bilaterally Cardio regular rate, regular rhythm, no murmurs GI normal to inspection, nondistended, normoactive bowel sounds, soft to palpation, non-tender and non-distended Extremity LLE in a splint and bandaged Skin no rashes or lesions noted, no wounds, skin turgor normal and no jaundice Neuro CN's II-XII intact bilaterally Psych affect normal Plan is for patient to have surgery tomorrow by podiatry. EKG showed normal sinus rhythm with some few premature atrial complexes. NSQIP score showed a below average risk score for serious complication (1.9%) and cardiac complication (0%). Patient therefore risk stratified for surgery with moderate risk. Continue hydrochlorothiazide and propranolol for high blood pressure. Continue statin for hyperlipidemia. PT OT consults. To have incentive spirometry after surgery. Fall precautions. Rest as per Osorio Cotto PA-C's note which I have reviewed and endorsed. Thank you for the courtesy of the consult. Please dont hesitate to contact hospitalist service with any questions or concerns. Inpatient E&M: 68502 Subs Hosp L2
[2021-01-24] MEDS: 0.9% Saline Lock 10 ML Syringe IV (18:35)
[2021-01-24] MEDS: Ondansetron 4 MG/2 ML Vial IV (18:35)
[2021-01-24 18:47] LABS: Hemoglobin A1c 5.7 % (3.8-5.6)
[2021-01-24] MEDS: Morphine 2 MG/ML Syringe IV (20:58)
[2021-01-24] MEDS: proCHLORPERazine 10 MG/2 ML Vial IV (20:59)
[2021-01-24] MEDS: Acetaminophen 325 MG Tablet 650 MG PO (20:59)
[2021-01-24] MEDS: Atorvastatin Calcium 10 MG Tablet PO (21:03)
[2021-01-24] MEDS: MELATONIN 3 MG TABLET 6 MG PO (21:03)
[2021-01-24] MEDS: hydroCHLOROthiazide 25 MG Tablet PO (21:55)
[2021-01-24] MEDS: Loratadine 10 MG Tablet PO (21:55)
[2021-01-24] MEDS: Temazepam 15 MG Capsule PO (21:59)
[2021-01-25] VITALS (9 sets, daily range): BP systolic 123–170; BP diastolic 65–85; PULSE 73–106; RESP 16–18; TEMP 36.6–37.7; O2SAT 4–98
[2021-01-25] MEDS: Morphine 2 MG/ML Syringe IV ×3 (06:09→21:54)
[2021-01-25] MEDS: DULoxetine Hcl 30 MG Capsule PO (09:21)
[2021-01-25] MEDS: 0.9% Saline Lock 10 ML Syringe IV ×3 (09:21→21:54)
[2021-01-25] MEDS: Acetaminophen 325 MG Tablet 650 MG PO ×2 (09:21→20:40)
--- NOTE | 2021-01-25 10:15 | CASEMGMT ---
WILLIE ENRIQUEZ RELIGIOUS LEADER CM to room to meet with patient for initial transition planning/care coordination assessment. WILLIE ENRIQUEZ introduced self and role at [facility]. Pt voices understanding and consents to assessment at this time. Pt resting in bed in no distress at this time. Pt is A/O at this time and answers all questions appropriately. Care providers, pharmacy, and demographics verified/updated at this time. PCP: Dr Margarita Meza Specialists: Dr Mcguire--cardiology, Dr Stiles for [facility], Dr Garcia--podiatry Preferred Pharmacy: [facility] Retail phamacy Insurance: MMO Prescription Benefit: Yes LNOK: , Willi Living Arrangements: Lives w/her in 2-story home w/basement. [employer]. 3 steps to enter thru front entrance. 2 steps total to enter thru garage. Was independent prior to fall w/fracture. Transportation: Pt/ DME: States has the following DME: CPAP, tub bench, crutches, knee scooter Pt states thinks a raised toilet seat may be helpful. She thinks she may have access to one. She was made aware this is not covered by insurance, and this could be purchased on-line or local drug stores. She states, if knee scooter is not recommended to use after surgery, then she may need a walker. HHC/SNF: No history of either. Pt states is considering either RU or TCU @ [facility], but she wants to think about it before making a decision. She is aware insurance approval would be needed. PLAN: TBD. RU vs TCU vs Home. If pt returns home, follow for HHC and walker, if needed. Jenae WATERS RN, CM
--- NOTE | 2021-01-25 10:35 | CASEMGMT ---
Social Work Note JANICE received referral for possible RU vs [facility] TCU at discharge. JANICE placed a call to Carissa with RU/TCU and provided referral. Carissa states pt's insurnace may approve RU, just depends on how pt does with PT/OT after surgery. JANICE placed pt's name on RU vs TCU list. Pt is having surgery today. JANICE primary products inspectors CM to follow up with pt tomorrow after PT/OT. Sofia Triana FINANCIAL REPORT SERVICE SALES AGENT, INSPECTOR TECHNICIAN
[2021-01-25] MEDS: Lactated Ringers 1,000 ML 100 ML IV ×3 (12:40→20:51)
--- NOTE | 2021-01-25 13:00 | RAD_ITS ---
STUDY: X-RAY - LEFT ANKLE REASON FOR EXAM: Female, 60 years old. LEFT TRIMALLEOLUS ANKLE FRACTURE TECHNIQUE: 12 fluoroscopic view(s) of the ankle. COMPARISON: LEFT ANKLE X-RAY DATED JANUARY 24, 2021 FINDINGS: The images shows surgical instrumentation of the ankle joint with a newly placed lateral cortical plate-screw construct over the distal one third aspect of the fibula fixating the previously displaced fracture fragments. 2 small new syndesmotic screws are present as well as 2 partially threaded obliquely oriented medial malleolus screws. RAD/Ankle 2 Views IMPRESSION: Status post hardware fixation as above Electronically Signed: Juventino Koch MD at 16:16 EDT , Service support ,
[2021-01-25] MEDS: Cefazolin 2 GM in 0.9% Normal Saline 100 ML IV (13:26)
[2021-01-25] MEDS: Bupivacaine Mpf 0.5% 30 ML VIAL (15:50)
--- NOTE | 2021-01-25 16:18 | RAD_ITS ---
STUDY: X-RAY - LEFT ANKLE REASON FOR EXAM: Status post ORIF of trimalleolar fracture. TECHNIQUE: 3 view(s) of the ankle. COMPARISON: Radiographs 01/24/2021. FINDINGS: There is an orthopedic plate and screws transfixing a distal fibular fracture in anatomical alignment and position. There are 2 orthopedic screws transfixing a fracture of the anterior lateral aspect of the distal tibia and anatomic alignment and position. There are 2 orthopedic screws transfixing a medial malleolar fracture in anatomical alignment and position. There is a posterior malleolar fracture. There is a thin osseous fragment overlying the tibiotalar articulation identified only on the lateral view. Normal visualized talus and calcaneus. The visualized subtalar, talonavicular, calcaneocuboid and tarsal articulations are normal. There is orthopedic hardware in the first metatarsal. There is an overlying splint. RAD/Ankle min 3 Views IMPRESSION: ORIF of left ankle fracture. Electronically Signed: Gamal Pendleton MD at 11:20 EDT Tel , Service support ,
--- NOTE | 2021-01-25 16:19 | OP.PCM_ITS ---
Problems Associated Problem List Diagnoses (1) Closed trimalleolar fracture of ankle: Report of Operation Date of Procedure: 01/25/21 Pre-Operative Diagnosis: left trimalleolus ankle fracture Post-Operative Diagnosis: left trimalleolus ankle fracture Surgery/Procedure Performed:: open reduction internal fixation left trimalleolus ankle fracture Description of Surgical Findings:: Hemostasis: Well-padded pneumatic left thigh tourniquet 300 mmHg, 114 minutes Materials: one Arthrex reconstructive one third tubular straight plate, 2 x 2.0 cannulated partially-threaded screws, 2 x 3.0 cannulated partially-threaded screws, four x 4.0 locking screws, two 4.0 cortical screws, one x 4.0 cancellous screw. 2-0 and 3-0 Vicryl, 4-0 nylon The patient tolerated the procedure and anesthesia well. The patient was transported to the PACU with vital signs stable and vascular status intact to the surgical limb. To ice and elevate for pain and inflammation management. Postoperative x-rays were reviewed prior to leaving the operating room. Postoperative orders were entered electronically. Surgeon: Anusha Dillon it quality assurance analyst: None (Roselyn Padgett DPM, PGY1) Type of Anesthesia: Block,Regional (Left lower extremity popliteal and saphenous nerve blocks (10 cc marcaine 0.5% plain)) and General Specimen's removed: None Drains: None Estimated Blood Loss (mL): <200 mL Description of Procedure: Indications: This 60-year-old female with significant past medical history of sleep apnea, hypertension, hyperlipidemia, murmur, GERD, fibromyalgia and depression sustained a fall on 01-24-2021 which resulted in a trimalleolar ankle fracture. She stepped down off of one step and heard a snap with sudden instability. X- rays demonstrated a Dan C fibular fracture, very distal medial malleolus fracture, and posterior malleolus fracture. This did not appear to breach the skin. She has palpable pulses and intact epicritic sensation. Additional left ankle CT scan confirmed plain film ankle x-ray findings with an additional chip fracture of the distal lateral tibia with intra-articular involvement. Other than that, additional fractures or dislocations were not identified. She did no t sustain any other injuries or loss of consciousness during the fall. Prior to this recent injury she denies history of other fractures or known bone density issues. She relates progressive loss of balance over the past couple of years. She is concerned about her bone density at this time. Her preoperative diagnostic data was reviewed without any acute findings on her EKG. She does have some leukocytosis and otherwise her CBC and CMP findings were without gross abnormalities. Her hemoglobin A1c was 5.7%. It was also noted she had a vitamin D level of 15. Preoperative H&P were reviewed including the aformentioned diagnostic data. Risk assessment and preoperative optimization with hospitalist physician is greatly appreciated. She is considered low risk. Preoperative indications, planned procedure, benefits, risk, anticipated healing time and management were reviewed. The patient understands and elects proceed with surgery at this time. No guarantees were made. The patient understands risk and complications include but are not limited to following: pain, swelling, scarring, need for further surgery, tendon contracture, transfer lesion, hardware failure, arthritis, need for further surgery, delayed or nonhealing, infection, blood clot, allergic reaction, loss of limb, function, or life. The informed surgical limb and consent were signed. I answered all the patient's questions. Procedure in detail: The patient was transported to the operating room via cart and placed on the operating room table in the supine position. Final verification of the patient, surgery, limb designation was performed. Preoperative IV antibiotics were administered by the anesthesia team. The anesthesia team also initiated the regional left lower extremity block. A well-padded pneumatic left thigh tourniquet was placed. The left lower extremity was carefully prepped and draped according to standard protocol. The left lower extremity was exsanguinated using an Esmarch bandage and the procedure proceeded as the following: Attention was first directed to the lateral left ankle in which an 8 cm linear incision was made through the skin. Blunt dissection was performed down to the fracture hematoma taking care to identify, protect, and retract all neurovascular structures at this point and throughout the remainder of surgery. The fracture hematoma was identified and manual dissection was performed to reflect the soft tissue off of the bone taking care to preserve the periosteum. A 15 blade scalpel was next used to mobilize the fracture and reflect the invaginated periosteum out of the fracture line. It is noted there was comminution and a butterfly fragment with some gross instability at this site. A straight Arthrex reconstructive plate was temporarily secured to the distal fibula with a BB tack and the ankle was manually pulled out to length in which the fracture fragment was directly visualized and reduced. At this time the plate was temporarily secured proximally with a BB tack. The decision to apply this in a buttress plate manner was made due to the comminution and fragmentation of the fracture line. Next, the plate was secured with a combin ation of distal cancellous, distal and proximal cortical screws to secure the plate directly onto the bone, and additional locking screws. Proper AO fixation technique was utilized. The fibular length was preserved and solid fixation was achieved. Next, attention was directed to the medial aspect and which manual reduction was performed. An incision was made through the skin over the fracture line that measure approximately 3 cm in length. The fracture hematoma was again immediately identified. There was some invagination of the posterior tibial tendon in this medial malleolus fracture site in which that was gently retracted. The posterior tibialis tendon appeared to be intact. The talar dome was also directly visualized from this site and it appeared to be intact. The invaginated periosteal tissue was reflected utilizing curettes and a scalpel. This fracture was reduced under direct visualization and was temporarily secured with a pointed reduction bone clamp. Next, according to standard AO fixation technique, two 4.0 partially-threaded screws were applied to secure this in place. It is noted that the medial malleolus ankle fracture is very distal in nature and was more anteriorly involved. Care was taken to avoid intra- articular hardware placement. Live intraoperative fluoroscopy was performed at this time to confirm all hardware was placed in the desired position and trajectory with anatomic fracture reduction achieved. This was confirmed and next the ankle was evaluated for syndesmotic instability. It is noted that the distal tibia and fibula overlap was maintained and appropriate at this time. A cotton test, stress eversion test, and stressed ankle dorsiflexion external rotation was performed without additional instability of the syndesmosis or deltoid was noted. Therefore the syndesmosis was not repaired. The posterior malleolus ankle fracture was also evaluated under live fluoroscopy and this was reduced and appeared to involve less than 10 % of the posterior tibia. Additional hardware was not deemed necessary at this site either. There was concern of a chaput distal lateral tibia fracture based off of CT evaluation and this fracture fragment was palpable and noted to be displaced. Additional dissection was performed to expose this area and the invaginated periosteum was removed with curette and 15 blade scalpel. This was manually reduced back into place and temporarily secured with guidewires. Additional 2.0 partially-threaded cannulated screws were applied to reduce this small fracture fragment using proper AO fixation technique under direct visualization. After reduction and hardware placement, improved ankle dorsiflexion was noted. The ankle joint was taken through passive sagittal plane range of motion and was smooth and gliding. Copious saline irrigation was performed. Deep closure was performed with 2-0 Vicryl and 3-0 Vicryl. The tourniquet was deflated at this time and no pulsatile bleeding was noted. Brisk capillary fill time was noted to all digits of the left foot. Minimal electrocauterization was performed. The skin was reapproximated next with 4-0 nylon utilizing simple and horizontal suture technique. A postoperative dressing was applied including Adaptic soaked in Betadine, gauze, Kerlix, and abdominal pads. Additional well-padded posterior mold splint was applied with webril and this was further secured with Vladimir wraps. After procedure: The patient tolerated the procedure and anesthesia well. The patient was transported to the PACU with vital signs stable and vascular status intact to the surgical limb. To ice and elevate for pain and inflammation management. Postoperative x-rays were reviewed prior to leaving the operating room as noted. Postoperative orders were entered electronically. I will follow her closely while in house. She will be evaluated by physical and occupational therapy tomorrow. Potential nursing home facility or rehabilitation versus discharge home will be considered. Postoperative pain medications including morphine and oxycodone were ordered. It is noted she has a regional block in place. To maintain a strict nonweightbearing status. Anusha Dillon DPM, [facility] Grafts/Implants Used: arthrex hardware Complications none Admit VTE Documentation VTE Present on Admission: No VTE Mechan Device Prophylaxis: SCD's VTE Pharm Prophylaxis ordered?: Yes
--- NOTE | 2021-01-25 17:30 | PCM.PN.HOSP ---
Subjective Subjective Patient was seen and examined earlier today, she was scheduled to have surgery on her left trimalleolar fracture today. I talked to her briefly about going to an extended care facility or rehab facility if she needed to, patient was not opposed to going to a rehab facility but was somewhat hesitant to accept going to a custodial facility. Objective Data Objective Data Vital Signs: Vital Signs Temp Pulse Resp BP Pulse Ox 98.8 F 91 16 162/82 H 98 01/25/21 17:28 01/25/21 17:28 01/25/21 17:28 01/25/21 17:28 01/25/21 17:28 Oxygen Flow Rate (L/min) [3] 2 Oxygen Flow Rate (L/min) [2] 5 Oxygen Flow Rate (L/min) [1 ( 5 Initial Baseline)] Oxygen Flow Rate (L/min) 3 Oxygen Delivery Method [3] Nasal Cannula Oxygen Delivery Method [2] Nasal Cannula Oxygen Delivery Method [1 ( Nasal Cannula Initial Baseline)] Oxygen Delivery Method Room Air Weight: 98.792 kg Body Mass Index (BMI) 33.1 Intake & Output: Intake and Output for Last 24 Hours 01/23/21 01/24/21 01/25/21 23:59 23:59 23:59 Intake Total 240 / 240 1110 / 1110 Output Total 100 / 350 1950 / 1950 Balance 140 / -110 -840 / -840 Lab / Micro Data Result Diagrams: 01/24/21 12:07 01/24/21 12:07 Labs: Laboratory Results - last 24 hr 01/24/21 01/24/21 12:07 12:07 Hemoglobin A1c 5.7 H Vitamin D 25-Hydroxy 15.0 Radiography Diagnostic Testing: Radiology Impression Ankle X-Ray 01/25/21 13:00 IMPRESSION: Status post hardware fixation as above Electronically Signed: Juventino Koch MD at 16:16 EDT , Service support , Physical Exam Const alert, oriented x3, no apparent distress, healthy appearing and well nourished HEENT head/scalp atraumatic, moist oral mucous membranes and oropharynx normal Head and Scalp: normocephalic Eyes PERRL, EOMs intact bilaterally and conjunctivae normal Neck no lymphadenopathy, supple and no JVD Resp normal respiratory effort, no retractions, no use of accessory muscles and clear to auscultation bilaterally Cardio regular rate, regular rhythm, S1 normal heart sound, S2 normal heart sound, no gallops and no clicks GI normal to inspection, nondistended, normoactive bowel sounds, soft to palpation, non-tender and non-distended Extremity Extremity Narrative: Patient's left lower leg was enclosed in a splint, this was not removed for examination of the area Skin skin turgor normal Neuro oriented x3, CN's II-XII intact bilaterally, no focal motor deficits and no sensory deficits noted Sensorium / Orientation: awake and alert Psych affect normal Assessment & Plan Assessment/Plan (1) Closed trimalleolar fracture of ankle: PLAN: 1. Closed trimalleolar fracture of the left ankle-patient will undergo surgery today with podiatry #2 hyperlipidemia #3 essential hypertension #4 obstructive sleep apnea-patient uses CPAP, her machine is here #5 osteoarthritis #6 chronic depression #7 GERD Visit Charges Inpatient E&M: 63176 Subs Hosp L2
[2021-01-25] MEDS: proCHLORPERazine 10 MG/2 ML Vial IV (20:40)
[2021-01-25] MEDS: Loratadine 10 MG Tablet PO (20:43)
[2021-01-25] MEDS: Atorvastatin Calcium 10 MG Tablet PO (20:43)
[2021-01-25] MEDS: hydroCHLOROthiazide 25 MG Tablet PO (20:43)
--- NOTE | 2021-01-25 20:48 | EKG12_ITS ---
Test Reason : PREOP Blood Pressure : / mmHG Vent. Rate : 070 BPM Atrial Rate : 070 BPM P-R Int : 188 ms QRS Dur : 078 ms QT Int : 410 ms P-R-T Axes : 048 074 072 degrees QTc Int : 442 ms Sinus rhythm with Premature atrial complexes Nonspecific T wave abnormality Abnormal ECG Confirmed by KELLEY WALTON, EDUARDO ([id number]), digital editor MARIBELL FRANCO ([id number]) on 01/31/2021 9:58:05 AM Referred By: MADISON Confirmed By:EDUARDO BENSON MD
[2021-01-25] MEDS: Mag Hydrox/Al Hydrox/Simeth 30 ML UDC PO (21:54)
[2021-01-25] MEDS: Pantoprazole Sodium 20 MG Tablet PO (21:54)
--- NOTE | 2021-01-25 23:18 | EKG12_ITS ---
Test Reason : REPEAT CP Blood Pressure : / mmHG Vent. Rate : 106 BPM Atrial Rate : 106 BPM P-R Int : 184 ms QRS Dur : 076 ms QT Int : 332 ms P-R-T Axes : 059 076 060 degrees QTc Int : 441 ms Sinus tachycardia Incomplete right bundle branch block Confirmed by KELLEY WALTON, EDUARDO ([id number]), design editor MARIBELL FRANCO ([id number]) on 01/31/2021 9:56:57 AM Referred By: MARY Confirmed By:EDUARDO BENSON MD
[2021-01-26 02:07] VITALS: BP 169/80; PULSE 102; RESP 16; TEMP 37.4; O2SAT 95
[2021-01-26] MEDS: Propranolol 40 MG Tablet 60 MG PO (02:46)
[2021-01-26] MEDS: Morphine 2 MG/ML Syringe IV ×2 (03:21→04:29)
[2021-01-26] MEDS: 0.9% Saline Lock 10 ML Syringe IV ×3 (03:22→07:00)
[2021-01-26 04:48] LABS: Absolute Lymphocyte Count 1.77 X10^3/uL (0.83-4.51); Absolute Neutrophil Count 8.6 X10^3/uL (2.0-7.7); Basophil# 0.04 X10^3/uL; Basophil% 0.4 % (0-1); Eosinophil# 0.01 X10^3/uL; Eosinophils% 0.1 % (0-5); Hematocrit 36.3 % (37-47); Hemoglobin 11.9 g/dL (12.0-15.0); Lymphocyte # 1.77 X10^3/ul (0.83-4.51); Lymphocyte % 15.6 % (19-41); Mean Corp Hgb Conc 32.8 g/dL (32-36); Mean Corpuscular Hgb 30.3 pg (27.0-32.0); Mean Corpuscular Volume 92.4 fL (81-99); Mean Platelet Vol. 10.7 fl (6.2-12.0); Monocyte# 0.87 X10^3/uL; Monocyte% 7.7 % (0-10); NRBC Flagged by Analyzer 0 % (0-5); Neutrophil # 8.57 X10^3/uL (2.7-7.7); Neutrophil % 75.6 % (47-70); Platelet Count 237 K/mm3 (150-450); RBC Distribution Width CV 13.1 % (11.6-14.6); RBC Distribution Width SD 44.7 fl (35.1-43.9); Red Blood Count 3.93 M/mm3 (4.2-5.4); White Blood Count 11.3 K/mm3 (4.4-11.0)
[2021-01-26 05:24] LABS: AST(SGOT) 22 U/L (15-37); Alanine Aminotransfer ALT/SGPT 33 U/L (13-56); Albumin, Serum 3.3 g/dL (3.2-5.0); Alkaline Phosphatase 74 U/L (45-117); Anion Gap 7 (5-15); BUN 10 mg/dL (7-18); BUN/Creat Ratio 12.1 RATIO (10-20); Calcium,Total 8.6 mg/dL (8.5-10.1); Chloride 101 mmol/L (98-107); Creatinine, Serum 0.83 mg/dL (0.55-1.02); EST Glomerular Filtration Rate 75 mL/min (>60); Est Glom Filt Rate - Afr Amer 91 mL/min (>60); Estimated Creatinine Clearance 72.71 ml/min; Globulin 3.3 g/dL (2.2-4.2); Glucose 123 mg/dL (74-106); Potassium 3.3 mmol/L (3.5-5.1); Protein, Total 6.6 g/dL (6.4-8.2); Sodium Level 138 mmol/L (136-145)
[2021-01-26] MEDS: Acetaminophen 325 MG Tablet 650 MG PO (05:58)
[2021-01-26] MEDS: Lactated Ringers 1,000 ML 100 ML IV (06:04)
--- NOTE | 2021-01-26 06:55 | PCM.PROGNOTE ---
Subjective Subjective This 60-year-old female seen bedside postoperative day #1 left ankle fracture open reduction internal fixation. She denies fever, chill, vomiting, urinary retention. She has not had a bowel movement since surgery and denies constipation. She denies routine calf pain, shortness of breath, or current chest pain. She does have nausea after she takes her oral pain medication and requests that this medication changed. She relates her pain is also recently uncontrolled and rated 9 out of 10 since her regional block has been wearing off. She has been elevating and applying ice to the side of her leg. She did have chest pain overnight and further work-up was initiated. Objective Data Objective Data Vital Signs: Vital Signs Temp Pulse Resp BP Pulse Ox 99.4 F H 102 H 16 169/80 H 95 01/26/21 02:07 01/26/21 02:07 01/26/21 02:07 01/26/21 02:07 01/26/21 02:07 Oxygen Flow Rate (L/min) [3] 2 Oxygen Flow Rate (L/min) [2] 5 Oxygen Flow Rate (L/min) [1 ( 5 Initial Baseline)] Oxygen Flow Rate (L/min) 3 Oxygen Delivery Method [3] Nasal Cannula Oxygen Delivery Method [2] Nasal Cannula Oxygen Delivery Method [1 ( Nasal Cannula Initial Baseline)] Oxygen Delivery Method CPAP Weight: 98.792 kg Body Mass Index (BMI) 33.1 Intake & Output: Intake and Output for Last 24 Hours 01/24/21 01/25/21 01/26/21 23:59 23:59 23:59 Intake Total 240 / 240 1745 / 1795 1571.67 / 1571.67 Output Total 100 / 350 1950 / 2350 1350 / 1350 Balance 140 / -110 -205 / -555 221.67 / 221.67 Lab / Micro Data Result Diagrams: 01/26/21 04:10 01/26/21 04:10 Labs: Laboratory Results - last 24 hr 01/25/21 01/26/21 01/26/21 22:05 00:13 04:10 WBC 11.3 H RBC 3.93 L Hgb 11.9 L Hct 36.3 L MCV 92.4 MCH 30.3 MCHC 32.8 RDW Std Deviation 44.7 H RDW Coeff of Ej 13.1 Plt Count 237 MPV 10.7 Immature Gran % (Auto) 0.600 Neut % (Auto) 75.6 H Lymph % (Auto) 15.6 L [place] % (Auto) 7.7 Eos % (Auto) 0.1 Baso % (Auto) 0.4 Absolute Neuts (auto) 8.6 H Absolute Lymphs (auto) 1.77 Nucleated RBC % 0 Sodium Potassium Chloride Carbon Dioxide Anion Gap BUN Creatinine Estim Creat Clear Calc Est GFR (MDRD) Af Amer Est GFR (MDRD) Non-Af BUN/Creatinine Ratio Glucose Calcium Total Bilirubin AST ALT Alkaline Phosphatase Troponin I < 0.015 < 0.015 Total Protein Albumin Globulin Albumin/Globulin Ratio 01/26/21 04:10 WBC RBC Hgb Hct MCV MCH MCHC RDW Std Deviation RDW Coeff of Ej Plt Count MPV Immature Gran % (Auto) Neut % (Auto) Lymph % (Auto) [place] % (Auto) Eos % (Auto) Baso % (Auto) Absolute Neuts (auto) Absolute Lymphs (auto) Nucleated RBC % Sodium 138 Potassium 3.3 L Chloride 101 Carbon Dioxide 30.0 Anion Gap 7 BUN 10 Creatinine 0.83 Estim Creat Clear Calc 72.71 Est GFR (MDRD) Af Amer 91 Est GFR (MDRD) Non-Af 75 BUN/Creatinine Ratio 12.1 Glucose 123 H Calcium 8.6 Total Bilirubin 0.60 AST 22 ALT 33 Alkaline Phosphatase 74 Troponin I < 0.015 Total Protein 6.6 Albumin 3.3 Globulin 3.3 Albumin/Globulin Ratio 1.0 Radiography Diagnostic Testing: Radiology Impression Ankle X-Ray 01/25/21 13:00 IMPRESSION: Status post hardware fixation as above Electronically Signed: Juventino Koch MD at 16:16 EDT , Service support , Physical Exam Const alert, oriented x3 and no apparent distress General Appearance: cooperative and comfortable Orientation / Consciousness: awake Exam Limitations: no limitations HEENT normocephalic Resp clear to auscultation bilaterally Auscultation: Negative for wheezes Cardio regular rate and regular rhythm GI Inspection: other Extremity normal to inspection and normal capillary refill Extremity Narrative: Bilateral feet are warm to touch. Capillary fill time is brisk to x 5, left. Active range of motion digits x 5 left. Negative Crabtree sign left. Posterior mold splint in place to left lower extremity; rectus position. Neuro oriented x3 Neuro Narrative: epicritic sensation intact via light touch to all digits left foot Psych thought process normal and cooperative Assessment & Plan Assessment/Plan (1) Closed trimalleolar fracture of ankle: (2) Left ankle pain: QUALIFIERS: Chronicity: acute Qualified Code(s): M25.572 - Pain in left ankle and joints of left foot PLAN: Postoperative day #1 open reduction internal fixation left trimalleolar ankle fracture Left ankle pain Chest pain overnight I reviewed and discussed her case. Her pain is recently exacerbated given her regional block yesterday wear off. She relates she is unable to tolerate the OxyIR and requests that that medication is changed. This was changed to hydrocodone/Tylenol. Hydromorphone IV and Toradol were also ordered. To continue to ice and elevate. Her ice pack was adjusted to behind her knee. Her pillows were also adjusted to better offload her surgical site. Postoperative x-rays were reviewed with anatomic recirculation of the ankle joint and fracture sites with fibula plate and screws and additional screws applied to the medial malleolus fracture site and distal lateral tibia fracture site. No acute injuries were noted. The hardware is in the desired trajectory and position. To maintain non weight bearing status left. PT/OT will work with her this morning. Rehabilitation placement will be considered Okay to resume anticoagulation medication for DVT prophylaxis. Lovenox ordered. Low vitamin D noted at 15. Weekly ergocalciferol was ordered. I discussed these results with the patient as well and she understands this influences fracture risk and bone healing potential. Medical management and cardiac work-up per hospitalist is greatly appreciated. Diagnostic data was ordered including EKG and troponin labs were not elevated. This case was discussed with Dr. Pabon. Please do not hesitate to call if you have any questions. Anusha Dillon DPM, [facility] [phone]
[2021-01-26] MEDS: HYDROmorphone 0.5 MG/0.5 ML SYRINGE IV (07:00)
[2021-01-26] MEDS: Ketorolac 30 MG/ML Syringe IV ×2 (08:37→14:11)
[2021-01-26] MEDS: Aspirin E.C. 81 MG Tablet PO (08:38)
[2021-01-26] MEDS: Polyethylene Glycol 3350 17 GM PACKET PO (08:38)
[2021-01-26] MEDS: Enoxaparin 40 MG/0.4 ML Syringe SC (08:41)
[2021-01-26 09:10] VITALS: BP 156/70; PULSE 77; RESP 16; TEMP 37.2; O2SAT 96
--- NOTE | 2021-01-26 11:05 | CASEMGMT ---
Social Work Note JANICE spoke with PT/OT who state pt could either go home or could go to Rehab. Whatever the pt wants to do. Per PT notes, pt's will be able to take a few days off from work to be with pt initially at home. SW in to speak with pt about discharge plans. Pt states she prefers to return home at discharge. JANICE spoke with pt about HHC vs outpatient therapy. Pt states initially she would like HHC. Pt also states she will need a walker. JANICE informed pt that WILLIE ENRIQUEZ will bring in list of HHC and DME companies. Pt states understanding. JANICE updated RN CM and physician. JANICE placed a call to [facility] with [facility] and left message that pt wants to go home now. Plan: Home with C Sofia Triana [employer]B PAGE DEVELOPER, [employer]
--- NOTE | 2021-01-26 11:14 | CASEMGMT ---
Social Work Note SW spoke with pt about HCPOA and LW. Pt states she has completed both and her is able to bring in copies. Sofia Triana STOCK AND STATION AGENT, TAKER AWAY
--- NOTE | 2021-01-26 11:29 | PN.HOSP_ITS ---
Subjective Subjective Patient was seen and examined today, physical therapy states that she could go home or to a rehab facility-is her choice, patient chooses to go home. Patient has no complaints of any shortness of breath, fevers, or chills. Objective Data Objective Data Vital Signs: Vital Signs Temp Pulse Resp BP Pulse Ox 99 F 77 16 156/70 H 96 01/26/21 09:10 01/26/21 09:10 01/26/21 09:10 01/26/21 09:10 01/26/21 09:10 Oxygen Flow Rate (L/min) [3] 2 Oxygen Flow Rate (L/min) [2] 5 Oxygen Flow Rate (L/min) [1 ( 5 Initial Baseline)] Oxygen Flow Rate (L/min) 3 Oxygen Delivery Method [3] Nasal Cannula Oxygen Delivery Method [2] Nasal Cannula Oxygen Delivery Method [1 ( Nasal Cannula Initial Baseline)] Oxygen Delivery Method Room Air Weight: 98.792 kg Body Mass Index (BMI) 33.1 Intake & Output: Intake and Output for Last 24 Hours 01/24/21 01/25/21 01/26/21 23:59 23:59 23:59 Intake Total 240 / 240 1745 / 1795 1571.67 / 1571.67 Output Total 100 / 350 1950 / 2350 1350 / 1350 Balance 140 / -110 -205 / -555 221.67 / 221.67 Lab / Micro Data Result Diagrams: 01/26/21 04:10 01/26/21 04:10 Labs: Laboratory Results - last 24 hr 01/25/21 01/26/21 01/26/21 22:05 00:13 04:10 WBC 11.3 H RBC 3.93 L Hgb 11.9 L Hct 36.3 L MCV 92.4 MCH 30.3 MCHC 32.8 RDW Std Deviation 44.7 H RDW Coeff of Ej 13.1 Plt Count 237 MPV 10.7 Immature Gran % (Auto) 0.600 Neut % (Auto) 75.6 H Lymph % (Auto) 15.6 L [place] % (Auto) 7.7 Eos % (Auto) 0.1 Baso % (Auto) 0.4 Absolute Neuts (auto) 8.6 H Absolute Lymphs (auto) 1.77 Nucleated RBC % 0 Sodium Potassium Chloride Carbon Dioxide Anion Gap BUN Creatinine Estim Creat Clear Calc Est GFR (MDRD) Af Amer Est GFR (MDRD) Non-Af BUN/Creatinine Ratio Glucose Calcium Total Bilirubin AST ALT Alkaline Phosphatase Troponin I < 0.015 < 0.015 Total Protein Albumin Globulin Albumin/Globulin Ratio 01/26/21 04:10 WBC RBC Hgb Hct MCV MCH MCHC RDW Std Deviation RDW Coeff of Ej Plt Count MPV Immature Gran % (Auto) Neut % (Auto) Lymph % (Auto) [place] % (Auto) Eos % (Auto) Baso % (Auto) Absolute Neuts (auto) Absolute Lymphs (auto) Nucleated RBC % Sodium 138 Potassium 3.3 L Chloride 101 Carbon Dioxide 30.0 Anion Gap 7 BUN 10 Creatinine 0.83 Estim Creat Clear Calc 72.71 Est GFR (MDRD) Af Amer 91 Est GFR (MDRD) Non-Af 75 BUN/Creatinine Ratio 12.1 Glucose 123 H Calcium 8.6 Total Bilirubin 0.60 AST 22 ALT 33 Alkaline Phosphatase 74 Troponin I < 0.015 Total Protein 6.6 Albumin 3.3 Globulin 3.3 Albumin/Globulin Ratio 1.0 Radiography Diagnostic Testing: Radiology Impression Ankle X-Ray 01/25/21 13:00 IMPRESSION: Status post hardware fixation as above Electronically Signed: Juventino Koch MD at 16:16 EDT , Service support , Ankle X-Ray 01/25/21 16:18 IMPRESSION: ORIF of left ankle fracture. Electronically Signed: Gamal Pendleton MD at 11:20 EDT Tel , Service support , Physical Exam Const alert, oriented x3, no apparent distress, healthy appearing and well nourished HEENT head/scalp atraumatic, moist oral mucous membranes and oropharynx normal Eyes PERRL, EOMs intact bilaterally and conjunctivae normal Neck no lymphadenopathy, supple and no JVD Resp normal respiratory effort, no retractions, no use of accessory muscles and clear to auscultation bilaterally Cardio regular rate, regular rhythm, S1 normal heart sound, S2 normal heart sound, no gallops and no clicks GI normal to inspection, nondistended, normoactive bowel sounds, soft to palpation, non-tender and non-distended Extremity Extremity Narrative: Patient's left lower leg was enclosed in a splint, this was not removed for examination of the area Skin skin turgor normal Neuro oriented x3, CN's II-XII intact bilaterally, no focal motor deficits and no sensory deficits noted Sensorium / Orientation: awake and alert Psych affect normal Assessment & Plan Assessment/Plan (1) Closed trimalleolar fracture of ankle: PLAN: 1. Closed trimalleolar fracture of the left ankle-postop day #1, patient appears medically stable at this time #2 hyperlipidemia #3 essential hypertension #4 obstructive sleep apnea-patient uses CPAP, her machine is here #5 osteoarthritis #6 chronic depression #7 GERD Visit Charges Inpatient E&M: 08051 Subs Hosp L2
--- NOTE | 2021-01-26 11:29 | CASEMGMT ---
WILLIE ENRIQUEZ updated by JANICE that patient would like HHC and walker at discharge. WILLIE ENRIQUEZ in to discuss HHC and DME. Patient was provided a list of HHC and DME providers including quality and resource use data and consistent with the patient?s preferred geographic region, medical needs, and insurance network. The patient?s preferred providers are [facility] and [facility]. WILLIE ENRIQUEZ made referral to [facility] and they are able to accept the patient. WILLIE ENRIQUEZ received script for FWW and sent referral to [facility], arranged for FWW to be delivered to patient's room prior to discharge. WILLIE ENRIQUEZ updated the patient regarding HHC with [facility] and walker delivery.
[2021-01-26 12:44] VITALS: BP 154/72; PULSE 68; RESP 16; TEMP 36.6; O2SAT 97
[2021-01-26 14:13] VITALS: BP 144/70; PULSE 72; RESP 16; TEMP 36.8; O2SAT 95
--- NOTE | 2021-01-26 15:18 | PCM.DC.SUM ---
Providers Date of Admission: 01/24/21 Primary Care Physician: Dr. Margarita Meaz, Consultations 01/24/21 17:17 Consult: Hospitalist Routine Consulting Provider: Shea Pedro Reason for Consult: medical management / preoperative assessment EMERGENT Consult: No MD Notified: Yes Date Notified:: 01/24/21 Time Notified: 17:10 Method of Notification: Verbal Reason For Visit: LEFT TRIMALLEOLUS ANKLE FRACTURE Diagnosis Discharge Diagnosis (1) Closed trimalleolar fracture of ankle: Status: Acute Code(s): S82.853A - Displaced trimalleolar fracture of unspecified lower leg, initial encounter for closed fracture Medications at Discharge Home Medications temazepam 15 mg capsule 15 mg PO QHS PRN 11/11/17 albuterol sulfate 90 mcg/actuation aerosol inhaler 1 puff INHALATION Q6H PRN 05/07/18 aviurrw-siubvoqjf-hfznohx D2 500 mg-50 mg-100 unit chewable tablet 1 tab PO DAILY tab 05/07/18 vitamin B complex 1 tab PO DAILY 05/07/18 simvastatin 20 mg tablet 20 mg PO DAILY tab 05/25/18 aspirin 81 mg tablet,delayed release 81 mg PO DAILY 06/03/18 duloxetine 30 mg capsule,delayed release 30 mg PO QODAY #90 cap 06/24/19 potassium chloride 8 mEq capsule,extended release 99 meq PO DAILY cap 06/24/19 omeprazole 20 mg capsule,delayed release 20 mg PO DAILY PRN 12/20/19 cetirizine 10 mg tablet 10 mg PO DAILY 07/24/20 hydrochlorothiazide 25 mg tablet 25 mg PO DAILY 07/24/20 propranolol 60 mg tablet 60 mg PO DAILY PRN tab 07/24/20 melatonin 6 mg PO QHS 01/24/21 cholecalciferol (vitamin D3) 1,250 mcg PO QWEEK #12 cap 01/26/21 hydrocodone-acetaminophen 1 tab PO Q4H PRN 7 Days #42 tab 01/26/21 rivaroxaban [Xarelto] 10 mg PO DAILY #14 tab 01/26/21 Hospital Course Operations - (Open reduction internal fixation left ankle fracture) Summary of Care Provided Minutes Spent on Discharge: 20 Hospital Course: This patient was admitted status post fall with fractured left ankle. Open reduction internal fixation was completed and she stayed for additional postoperative pain management. She also saw physical and Occupational Therapy and did well with nonweightbearing with the use of an assistive device. During her hospital admission she did demonstrate a chest pain and cardiac etiology was ruled out. Physical Exam Const alert and oriented x3 General Appearance: cooperative Resp clear to auscultation bilaterally Extremity Extremity Narrative: Rectus left ankle position splint without strikethrough. Active range of motion left toes Peripheral Pulses: Yes dorsalis pedis pulses present Skin Skin Narrative: Intact Neuro oriented x3 Neuro Narrative: Epicritic sensation is intact to light touch digits bilateral ABG / Lab / Microbiology Data Result Diagrams: 01/26/21 04:10 01/26/21 04:10 Laboratory: Laboratory Results - last 24 hr 01/25/21 01/26/21 01/26/21 22:05 00:13 04:10 WBC 11.3 H RBC 3.93 L Hgb 11.9 L Hct 36.3 L MCV 92.4 MCH 30.3 MCHC 32.8 RDW Std Deviation 44.7 H RDW Coeff of Ej 13.1 Plt Count 237 MPV 10.7 Immature Gran % (Auto) 0.600 Neut % (Auto) 75.6 H Lymph % (Auto) 15.6 L [place] % (Auto) 7.7 Eos % (Auto) 0.1 Baso % (Auto) 0.4 Absolute Neuts (auto) 8.6 H Absolute Lymphs (auto) 1.77 Nucleated RBC % 0 Sodium Potassium Chloride Carbon Dioxide Anion Gap BUN Creatinine Estim Creat Clear Calc Est GFR (MDRD) Af Amer Est GFR (MDRD) Non-Af BUN/Creatinine Ratio Glucose Calcium Total Bilirubin AST ALT Alkaline Phosphatase Troponin I < 0.015 < 0.015 Total Protein Albumin Globulin Albumin/Globulin Ratio 01/26/21 04:10 WBC RBC Hgb Hct MCV MCH MCHC RDW Std Deviation RDW Coeff of Ej Plt Count MPV Immature Gran % (Auto) Neut % (Auto) Lymph % (Auto) [place] % (Auto) Eos % (Auto) Baso % (Auto) Absolute Neuts (auto) Absolute Lymphs (auto) Nucleated RBC % Sodium 138 Potassium 3.3 L Chloride 101 Carbon Dioxide 30.0 Anion Gap 7 BUN 10 Creatinine 0.83 Estim Creat Clear Calc 72.71 Est GFR (MDRD) Af Amer 91 Est GFR (MDRD) Non-Af 75 BUN/Creatinine Ratio 12.1 Glucose 123 H Calcium 8.6 Total Bilirubin 0.60 AST 22 ALT 33 Alkaline Phosphatase 74 Troponin I < 0.015 Total Protein 6.6 Albumin 3.3 Globulin 3.3 Albumin/Globulin Ratio 1.0 Radiography Diagnostic Testing: Radiology Impression Ankle X-Ray 01/25/21 13:00 IMPRESSION: Status post hardware fixation as above Electronically Signed: Juventino Koch MD at 16:16 EDT , Service support , Ankle X-Ray 01/25/21 16:18 IMPRESSION: ORIF of left ankle fracture. Electronically Signed: Gamal Pendleton MD at 11:20 EDT Tel , Service support , D/C Instructions Discharge Diet: No restrictions Discharge Activity: May not drive while taking narcotic pain medications., May Shower (use shower bag to keep splint and dressing clean and dry) and Use Walker Return to work on: 01/07/22 Ice area for (Minutes): 15 Weight Bearing Status: No weight bearing Keep extremity elevated above heart level: Operative Extremity Call your doctor if your incision/area has: Continuous Slow Oozing, Sudden Increased Bleeding, Increased Pain/ Swelling, Increased Redness, Foul Smelling Discharge and Swelling at the incision site Call your doctor if you observe: Fever of 101 or Higher, Coldness, Increased Pain and Numbness or Tingling Change Dressing in: do not change dressing Cleanse incision/area with: Keep Dressing Clean & Dry Please Follow Up With: Ansuha Dillon DPM When: 1 week Meaningful Use Info Meaningful Use Diagnoses (Choose all that apply): None applicable Discharge Plan Admission Admit Date/Time: 01/24/21 13:45 Primary Reason for Your Visit: left ankle fracture Attending Provider: Elan Pabon Primary Care Provider: Margarita Meza Consulting Providers: Shea Pedro Instructions Patient Instructions: Treating Ankle Fractures, ED Chest Pain, Noncardiac, Vitamin D Additional Instructions / Restrictions: Remain non weightbearing to left lower extremity. Use walker. Elevate left lower extremity. Apply ice behind knee for no longer than a duration of 15 minutes. Keep your dressing and splint clean, dry, and intact until follow [facility]. Discharge Orders/Prescriptions Prescriptions: New hydrocodone-acetaminophen 7.5-325 mg tablet 1 tab PO Q4H PRN (Reason: pain, moderate) 7 Days Qty: 42 RF: 0 Xarelto 10 mg tablet 10 mg PO DAILY Qty: 14 RF: 0 cholecalciferol (vitamin D3) 1,250 mcg (50,000 unit) capsule 1,250 mcg PO QWEEK Qty: 12 RF: 0 No Action temazepam 15 mg capsule 15 mg PO QHS PRN (Reason: Insomnia) RF: 0 cetirizine [Zyrtec] 10 mg tablet 10 mg PO DAILY RF: 0 albuterol sulfate [Ventolin HFA] 90 mcg/actuation HFA aerosol inhaler 1 puff INHALATION Q6H PRN (Reason: Sob &/Or Wheezing) RF: 0 vitamin B complex [B Complex-Vitamin B12] tablet 1 tab PO DAILY RF: 0 dojokjc-ejzcedacw-vqyuljr D2 500 mg-50 mg-100 unit chewable tablet 500-50-100 mg-mg-unit tablet,chewable 1 tab PO DAILY RF: 0 potassium chloride 8 mEq capsule, extended release 99 meq PO DAILY RF: 0 duloxetine 30 mg capsule,delayed release(DR/EC) 30 mg PO QODAY Qty: 90 RF: 0 hydrochlorothiazide 25 mg tablet 25 mg PO DAILY RF: 0 propranolol 60 mg tablet 60 mg PO DAILY PRN (Reason: Headache) RF: 0 omeprazole 20 mg capsule,delayed release(DR/EC) 20 mg PO DAILY PRN (Reason: gerd) RF: 0 melatonin 3 mg Tablet 6 mg PO QHS RF: 0 simvastatin 20 mg tablet 20 mg PO DAILY RF: 0 aspirin 81 mg tablet,delayed release (DR/EC) 81 mg PO DAILY RF: 0 Referrals / Follow Up: Anusha Dillon DPM [STAFF PHYSICIAN] - In 1 Week Margarita Meza DO [Primary Care Provider] - Disposition Disposition (needs filled in before D/C Order can be placed): Home, self care
--- NOTE | 2021-01-26 16:03 | CASEMGMT ---
WILLIE ENRIQUEZ NOTE: Pt being discharged home on Xarelto, which has been e-scribed to [facility] pharmacy. Pt provided w/Xarelto savings card, instructed on activation, and pt activated the card. Per [facility] pharmacist, prior auth is also required for Xarelto. Call placed to [facility] prior auth dept and spoke w/Estephanie @ for Xarelto. Prior auth obtained: Call placed back to [facility] in [facility] retail pharmacy. He states hnc-oo-joopff cost for Xarelto is now $10. Call placed to pt and she was made aware. Jenae WATERS RN, CM
--- NOTE | 2021-01-30 13:50 | CASEMGMT ---
WILLIE CM Discharge Follow-up Phone Call: RUSTAM: Lucia Strata: 3 Call Date: 01/30/21 Discharge Date: 01/26/21 Time of Call: 1350 Duration: 1 min Admitting Diagnosis: Left Ankle Fracture RN MINA attempted to complete follow-up phone call after recent hospitalization. No answer, voice message left with return contact information.
== END 2021-01-26 17:39 | disposition home or self-care (01) | DRG 494 ==
LOC: ED 13:43 → MS3 14:04
PROVIDERS: Family Medicine; Admitting Provider Podiatrist; Emergency Provider Emergency Medicine; PCP Family Medicine; Visit Provider Internal Medicine
PROC: 0QSH04Z Reposition Left Tibia with Internal Fixation Device, Open Approach (ICD-10-PCS; principal; 2021-01-25 13:10)
DX: S82.852A Displaced trimalleolar fracture of left lower leg, initial encounter for closed fracture (principal); G47.33 Obstructive sleep apnea (adult) (pediatric); M79.7 Fibromyalgia; I11.0 Hypertensive heart disease with heart failure; I50.9 Heart failure, unspecified; K21.9 Gastro-esophageal reflux disease without esophagitis; M19.90 Unspecified osteoarthritis, unspecified site; K58.9 Irritable bowel syndrome, unspecified; M25.532 Pain in left wrist; M25.531 Pain in right wrist; F41.9 Anxiety disorder, unspecified; W10.9XXA Fall (on) (from) unspecified stairs and steps, initial encounter; F32.9 Major depressive disorder, single episode, unspecified; E78.5 Hyperlipidemia, unspecified; Y93.9 Activity, unspecified; Y92.9 Unspecified place or not applicable; Y99.9 Unspecified external cause status; Z79.899 Other long term (current) drug therapy; Z79.82 Long term (current) use of aspirin
CPT/HCPCS: 36415; 73110; 73600; 73610; 73700; 76000; 80048; 80053; 82306; 83036; 84484; 85025; 93005; 97162; 97166; 99152; 99251; 99285; C1713; J7030; J7120; A4216; G0463; J2405

== ENCOUNTER → 2021-06-21 14:10 | Outpatient (CLI) | payer OTHER, SELFPAY ==
--- NOTE | 2021-06-21 14:30 | BD_ITS ---
STUDY: DUAL ENERGY X-RAY ABSORPTIOMETRY / DXA REASON FOR EXAM: Female, 61 years old. 733.00OsteoporosisBONE DENSITY REASON FOR EXAM TECHNIQUE: Bone Mineral Density (BMD) measurements of lumbar spine and bilateral hips were obtained. COMPARISON: None. FINDINGS: Lumbar Spine (L1-L4): g/cm2 (1.025) / T-score (-0.2) / Z-score (1.3) Findings are suggestive of normal bone density with a low fracture risk. Left Femur Total: g/cm2 (0.967) / T-score (0.2) / Z-score (1.2) Left Femoral Neck: g/cm2 (0.756) / T-score (-0.8) / Z-score (0.5) Right Femur Total: g/cm2 (0.948) / T-score (0.1) / Z-score (1.1) Right Femoral Neck: g/cm2 (0.810) / T-score (-0.4) / Z-score (1.0) BD/Dexa Bone Density Study IMPRESSION: The patient is considered normal as outlined below according to World Aly Organization (WHO) criteria with a low fracture risk. Reference Information: The T-score is the number of standard deviations above or below the standard which is normal for young adults at their peak bone mineral density. The World Health Organization (WHO) interprets the T-scores as follows: Above -1 Normal bone density Between -1 and -2.5 Osteopenia Equal to / or below -2.5 Osteoporosis As a practical clinical guideline, osteopenia may be graded as follows: Mild -1 through -1.5 Moderate -1.6 through -2.0 Severe -2.1 through -2.4 The Z-score is the number of standard deviations above or below age-matched controls. A Z-score of less than -1.5 would be considered abnormal. References: 1. NIH Osteoporosis and Related Bone Diseases www osteo.org 2. International Society for Clinical Densitometry www iscd.org 3. National Osteoporosis Foundation www nof.org Electronically Signed: Toby Jasso MD at 9:32 EDT , Service support ,
== END ==
PROVIDERS: PCP Family Medicine; Visit Provider Family Medicine
DX: Z13.820 Encounter for screening for osteoporosis (principal)
CPT/HCPCS: 77080

== ENCOUNTER → 2021-07-24 16:25 | Outpatient (CLI) | payer OTHER, SELFPAY ==
[2021-07-30 13:26] LABS: HPV APTIMA, High Risk Negative (Negative)
== END ==
PROVIDERS: PCP Family Medicine; Visit Provider Student in an Organized Health Care Education/Training Program
DX: Z12.4 Encounter for screening for malignant neoplasm of cervix (principal)
CPT/HCPCS: 87624; 88175; G0145

== ENCOUNTER 2021-10-30 08:51 | Outpatient (CLI) | payer OTHER, SELFPAY | END 2021-10-30 23:59 | disposition home or self-care (01) | LOC: LABSPEC 08:52 | PROVIDERS: PCP Family Medicine; Visit Provider Family Medicine | DX: U07.1 COVID-19 (principal) | CPT/HCPCS: 87635; U0003; U0005 ==

== ENCOUNTER 2022-07-15 07:40 | Day surgery (SDC) | payer OTHER, SELFPAY ==
--- NOTE | 2022-07-15 | COLBX_PTH ---
PATIENT: JOHANNA DOVE LOC: EN U#:[id number] AGE/SX: 62/F ROOM: RE07/15/[address]: Dr. Jenise Edmonds MD : 1960 BED: DIS: 07/15/2022 SPEC #: [id number] RECD: 07/15/22 12:58 STATUS: NATHAN RENeda #: [id number] MARILEE: 07/15/22 00:[address]: Jenise Edmonds DEPT: SURGICAL PATHOLOGY RECD BY: Devon Rojas ENTERED: 07/15/22 12:58 SP TYPE: COLON BX OTHR DR: Dr. Margarita Meza, DO Tissues: Transverse colon Procedures: Surgery Specimen Level IV HEADER OPERATION: Colonoscopy with polypectomy ? open access (MAC) PRE-OP DIAGNOSIS: History of colonic polyps TISSUE SUBMITTED: Transverse colon polyp MICROSCOPIC DIAGNOSIS Transverse colon polyp, biopsy: Fragments of tubular adenoma. AM:marimar 07/16/2022 MICROSCOPIC DESCRIPTION Slides are reviewed. GROSS DESCRIPTION Received in fixative is one container labeled with the patient's name and designated transverse colon polyp. The specimen consists of two irregular fragments of light dawson soft tissue that in aggregate measure 0.3 x 0.3 x 0.1 cm. The specimen is totally submitted in one cassette. / AM:marimar 07/15/2022 TC:5 CPT: 38804
[2022-07-15 07:56] VITALS: BP 139/62; PULSE 71; RESP 18; TEMP 36.4; O2SAT 100; BMI 30.4
--- NOTE | 2022-07-15 08:01 | HP.PCM_ITS ---
HPI - General HPI Narrative JOHANNA DOVE, is a 62 F who presents for screening colonoscopy due to history of colon polyps. Patient's last colonoscopy was in [address] Garcia normal per patient, in 2014 patient did have colon polyps removed. Patient has bowel movements daily denies any blood. Patient's paternal uncle did have colon c ancer in his 70s however no immediate family history. Patient denies any chronic abdominal pain/nausea/vomiting/reflux FOR[facility]LY [facility], [facility] Medical History (Updated 07/15/22 @ 09:[address] Jenise Edmonds MD) Abnormal mammogram of right breast Abnormal stress test Abnormal ultrasound of breast Acid reflux Anxiety Arthritis Atrial fibrillation Cardiology follow-up encounter Chest pain CPAP (continuous positive airway pressure) dependence Depression Ectopic cardiac beats Essential (primary) hypertension Fibromyalgia Gastric reflux High cholesterol History of atrial fibrillation History of echocardiogram History of edema History of stress test Hypertension IBS (irritable bowel syndrome) Injury of head and neck Leg cramps Migraines Non-smoker ABDULAZIZ (obstructive sleep apnea) Osteoarthritis Post-menopausal Pure hypercholesterolemia Restless legs Sleep apnea Wears glasses Home Medications temazepam 15 mg capsule 15 mg PO QHS PRN Insomnia 11/11/17 [History Last Taken 01/22/21] albuterol sulfate 90 mcg/actuation aerosol inhaler (Ventolin HFA) 1 puff inhalation Q6H PRN Sob &/Or Wheezing 05/07/18 [History Last Taken Unknown] tusgtgh-xjhcxtkdx-ugyosxy D2 500 mg-50 mg-100 unit chewable tablet 1 tab PO DAILY supplement 05/07/18 [History Last Taken 01/22/21] vitamin B complex (B Complex-Vitamin B12 tablet) 1 tab PO DAILY 05/07/18 [History Last Taken 01/22/21] simvastatin 20 mg tablet 20 mg PO DAILY 05/25/18 [History Last Taken 01/23/21] aspirin 81 mg tablet,delayed release 81 mg PO DAILY health maintenance 06/03/18 [History Last Taken 01/23/21] duloxetine 30 mg capsule,delayed release 30 mg PO QODAY #90 caps 06/24/19 [History Last Taken 01/23/21] potassium chloride 8 mEq capsule,extended release 8 meq PO DAILY 06/24/19 [History Last Taken 01/22/21] omeprazole 20 mg capsule,delayed release 20 mg PO DAILY PRN gerd 12/20/19 [History Last Taken 01/22/21] cetirizine 10 mg tablet (Zyrtec) 10 mg PO DAILY allergies 07/24/20 [History Last Taken 01/23/21] hydrochlorothiazide 25 mg tablet 25 mg PO QHS HTN 07/24/20 [History Last Taken 01/23/21] propranolol 60 mg tablet 60 mg PO DAILY PRN Headache 07/24/20 [History Last Taken 01/21/21] melatonin 3 mg tablet 5 mg PO QHS 01/24/21 [History Last Taken 01/23/21] cholecalciferol (vitamin D3) 1,250 mcg (50,000 unit) capsule 1,250 mcg PO QWEEK #12 caps 01/26/21 [Rx Last Taken Unknown] Allergy/AdvReac Type Severity Reaction Status Date / Time No Known Allergies Allergy Verified 07/15/22 07:54 Family History (Updated 06/21/22 @ 08:49 by Elinor Blankenship) Father Heart disease Sister Myocardial infarction Mother Arrhythmia Heart disease Diabetes CHF (congestive heart failure) Thyroid disorder Diverticulitis Brother Arrhythmia Myocardial infarction Brother Arrhythmia ASVD (arteriosclerotic vascular disease) Heart disease Sister Sarcoidosis Daughter Thyroid disorder Uncle Colon cancer Surgical History H/O cardiac catheterization History of ankle surgery History of breast biopsy History of foot surgery Hx of colonoscopy Social History Smoking Status: Never smoker second hand exposure: No alcohol intake: never substance use type: does not use caffeine: Yes what type of physical activity do you participate in: none frequency: does not exercise Past Medical/Surgical History Planned Operation Planned Operative Procedure/s: COLONOSCOPY Previous Hospitalizations/Surgeries HX Hospitalizations: No HX of Surgeries: foot surgery Any Problems With Anesthesia: No You/Your Family Experience Fever (Hyperthermia) With Anes: No Cholinesterase deficiency: No Cardiovascular Hx Chest Pain within Last 2 months: Yes Hx of Irregular Heartbeat and/or Afib: No Hx Heart Attack: No Hx Congestive Heart Failure: No Hx Rheumatic Fever: No Hx Hypertension: Yes (PER PT CONTROLLED ON MEDS) Hx Internal Defibrillator: No Hx Pacemaker: No Hx Cardiac Catheterization: No Hx Cardiac Surgery/Stents/Etc.: No Hx Stress Test: Yes (abnormal) Respiratory Chronic Cough: No Hx Chronic Obstructive Pulmonary Disease (COPD): No Hx Asthma: No Hx Emphysema: No Hx Sleep Apnea: Yes CPAP: Yes BIPAP: No Hx Respiratory Tract Infection/Cold (presently): No Result (for STOP score): Positive Hx Smoking: No Smoking Status: Never smoker Gastrointestinal Hx Ulcer: No Hx Unplanned Weight Loss of 20#: No HX Unplanned Weight Gain of 20#: No Neurological Hx Seizures: No HX Syncope/Blackout Spells/Unconsciousness: No Does patient have nerve stimulator: No Blood Disorder Hx Deep Vein Thrombosis: No Hx High Cholesterol: Yes Hx Hepatitis: No Hx Anemia: No Reproduction : No Genitourinary Hx Dialysis: No Musculoskeletal Hx Arthritis: Yes (osteoarthritis) Endocrine Hx Diabetes: No Psycho/Social Hx Alcohol Use: No Hx Anxiety: No Hx Depression: No Miscellaneous Hx Cancer: No Recent Exposure to Contagious Disease: No Allergies No Known Allergies Allergy (Verified 07/15/22 07:54) Discharge Is Pt Admitted From a Snf, or a Longterm: No Who Could Help: After D/C, Where Do you Plan to Go: Return Home From the [facility] History Number of Risk Factors: 1 Vital Signs Vital Signs Vital Signs: 07/15/22 07:55 07/15/22 07:56 Temperature 97.6 F L Temperature Source Temporal Pulse Rate 71 Respiratory Rate 18 Respiratory Pattern Normal Blood Pressure 139/62 H Blood Pressure Mean 87 Blood Pressure Source Monitor Blood Pressure Position Semi-Fowlers Blood Pressure Location Left Arm Pulse Ox 100 Oxygen Delivery Method Room Air Weight Weight: 200 lb Body Mass Index (BMI) 30.4 Physical Exam Const alert, oriented x3 and no apparent distress HEENT normocephalic and head/scalp atraumatic Resp normal respiratory effort Cardio regular rate GI soft to palpation and non-tender; Negative for non-distended Palpation: Negative for guarding Extremity no clubbing, cyanosis or edema Neuro CN's II-XII intact bilaterally Psych mental status grossly normal Assessment & Plan Assessment/Plan (1) Hx of colonic polyps: Surgery Risks - Colonoscopy Risks Include but are not Limited To: Risks include but are not limited to: Bleeding, perforation requiring further surgery, inability to complete colonoscopy requiring barium enema.
[2022-07-15] MEDS: Lactated Ringers 1,000 ML 15 ML IV (08:03)
[2022-07-15 09:48] VITALS: BP 111/94; BP 139/62; PULSE 66; RESP 14; TEMP 37.6; O2SAT 96
[2022-07-15 09:50] VITALS: BP 114/58; BP 139/62; PULSE 58; RESP 14; O2SAT 96
--- NOTE | 2022-07-15 09:51 | OP.COLON_ITS ---
Patient Name: Dia Jones Procedure Date: 07/15/2022 9:08 AM Date of : 1960 Age: 62 Procedure: Colonoscopy Indications: High risk colon cancer surveillance: Personal history of colonic polyps Providers: Jenise Edmonds MD Medicines: Monitored Anesthesia Care Patient Profile: This is a 62 year old female. Last Colonoscopy: 2018. Complications: No immediate complications. Procedure: Pre-Anesthesia Assessment: - Prior to the procedure, a History and Physical was performed, and patient medications and allergies were reviewed. The patient's tolerance of previous anesthesia was also reviewed. The risks and benefits of the procedure and the sedation options and risks were discussed with the patient. All questions were answered, and informed consent was obtained. Prior Anticoagulants: The patient has taken no previous anticoagulant or antiplatelet agents. ASA Grade Assessment: Per anesthesia. After reviewing the risks and benefits, the patient was deemed in satisfactory condition to undergo the procedure. After I obtained informed consent, the scope was passed under direct vision. Throughout the procedure, the patient's blood pressure, pulse, and oxygen saturations were monitored continuously. The colonoscope was introduced through the anus and advanced to the cecum, identified by the appendiceal orifice, ileocecal valve and palpation. The colonoscopy was performed without difficulty. The patient tolerated the procedure well. The quality of the bowel preparation was good. Scope In: 9:17:42 AM Scope Withdrawal Time 0 hours 11 minutes 36 seconds Scope Out: 9:43:44 AM Total Procedure Duration Time 0 hours 26 minutes 2 seconds Findings: The perianal and digital rectal examinations were normal. Multiple small-mouthed diverticula were found in the sigmoid colon. A less than 5 mm polyp was found in the transverse colon. The polyp was sessile. The polyp was removed with a cold biopsy forceps. Resection and retrieval were complete. The exam was otherwise without abnormality on direct and retroflexion views. Impression: - Diverticulosis in the sigmoid colon. - One less than 5 mm polyp in the transverse colon, removed with a cold biopsy forceps. Resected and retrieved. - The examination was otherwise normal on direct and retroflexion views. Recommendation: - Discharge patient to home. - High fiber diet. - Continue present medications. - Await pathology results. - Repeat colonoscopy in 5 years for surveillance based on pathology results. Procedure Code(s): --- Professional --- 45962, PT, Colonoscopy, flexible; with biopsy, single or multiple Diagnosis Code(s): --- Professional --- Z86.010, Personal history of colonic polyps D12.2, Benign neoplasm of ascending colon K57.30, Diverticulosis of large intestine without perforation or abscess without bleeding CPT copyright 2017 [employer]. All rights reserved. The codes documented in this report are preliminary and upon inpatient coder review may be revised to meet current compliance requirements. MD Jenise Massey MD 07/15/2022 9:50:57 AM This report has been signed electronically. Number of Addenda: 0 Note Initiated On: 07/15/2022 9:08 AM
--- NOTE | 2022-07-15 09:52 | OP.CCLET_ITS ---
07/15/2022 Margarita Meza [address] [place] [address] Re : Colonoscopy procedure for Dia Jones Dear Dr. Meza This procedure was performed on Friday, July 15, 2022. My impressions and recommendations are as follows: Impressions : - Diverticulosis in the sigmoid colon. - One less than 5 mm polyp in the transverse colon, removed with a cold biopsy forceps. Resected and retrieved. - The examination was otherwise normal on direct and retroflexion views. Recommendations : - Discharge patient to home. - High fiber diet. - Continue present medications. - Await pathology results. - Repeat colonoscopy in 5 years for surveillance based on pathology results. My findings are described in the full procedure note, which is enclosed. If I can be of further assistance, please feel free to contact me at Doctor phone number(s): , Work: . Sincerely, MD Jenise Massey MD 07/15/2022 9:50:57 AM This report has been signed electronically.
[2022-07-15 09:55] VITALS: BP 115/52; BP 139/62; PULSE 52; RESP 16; O2SAT 100
[2022-07-15 10:03] VITALS: BP 130/65; BP 139/62; PULSE 63; RESP 16; TEMP 36.5; O2SAT 96
[2022-07-15 10:21] VITALS: BP 139/62
== END 2022-07-15 10:42 | disposition home or self-care (01) ==
LOC: EN 07:40 → AC 07:42
PROVIDERS: PCP Family Medicine; Referring Provider Surgery; Visit Provider Surgery
PROC: 0DJD8ZZ Inspection of Lower Intestinal Tract, Via Natural or Artificial Opening Endoscopic (ICD-10-PCS; CPT 45378; principal; 2022-07-15 08:55)
DX: Z12.11 Encounter for screening for malignant neoplasm of colon (principal); K57.30 Diverticulosis of large intestine without perforation or abscess without bleeding; D12.3 Benign neoplasm of transverse colon; I10 Essential (primary) hypertension; E78.00 Pure hypercholesterolemia, unspecified; G47.33 Obstructive sleep apnea (adult) (pediatric); K21.9 Gastro-esophageal reflux disease without esophagitis; Z79.82 Long term (current) use of aspirin; Z79.899 Other long term (current) drug therapy; Z80.0 Family history of malignant neoplasm of digestive organs; Z86.010 Personal history of colon polyps
CPT/HCPCS: 45380; 88305; J7120; J2405

== ENCOUNTER → 2022-07-20 | Outpatient (CLI) | payer OTHER, SELFPAY ==
[2022-07-20 09:32] LABS: Absolute Lymphocyte Count 2.82 X10^3/uL (0.83-4.51); Absolute Neutrophil Count 2.7 X10^3/uL (2.0-7.7); Basophil# 0.04 X10^3/uL; Basophil% 0.6 % (0-1); Eosinophil# 0.31 X10^3/uL; Eosinophils% 4.9 % (0-5); Hematocrit 41.1 % (37-47); Hemoglobin 13.8 g/dL (12.0-15.0); Lymphocyte # 2.82 X10^3/ul (0.83-4.51); Lymphocyte % 44.8 % (19-41); Mean Corp Hgb Conc 33.6 g/dL (32-36); Mean Corpuscular Hgb 30.6 pg (27.0-32.0); Mean Corpuscular Volume 91.1 fL (81-99); Mean Platelet Vol. 10.5 fl (6.2-12.0); Monocyte# 0.39 X10^3/uL; Monocyte% 6.2 % (0-10); NRBC Flagged by Analyzer 0 % (0-5); Neutrophil # 2.72 X10^3/uL (2.7-7.7); Neutrophil % 43.3 % (47-70); Platelet Count 277 K/mm3 (150-450); RBC Distribution Width CV 13.1 % (11.6-14.6); RBC Distribution Width SD 43.6 fl (35.1-43.9); Red Blood Count 4.51 M/mm3 (4.2-5.4); White Blood Count 6.3 K/mm3 (4.4-11.0)
[2022-07-20 10:07] LABS: AST(SGOT) 23 U/L (15-37); Alanine Aminotransfer ALT/SGPT 37 U/L (13-56); Albumin, Serum 3.6 g/dL (3.2-5.0); Alkaline Phosphatase 71 U/L (45-117); Anion Gap 4 (5-15); BUN 12 mg/dL (7-18); BUN/Creat Ratio 13.7 RATIO (10-20); Calcium,Total 9.2 mg/dL (8.5-10.1); Chloride 106 mmol/L (98-107); Cholesterol 167 mg/dL (200); Creatinine, Serum 0.88 mg/dL (0.55-1.02); EST Glomerular Filtration Rate 69 mL/min (>60); Est Glom Filt Rate - Afr Amer 84 mL/min (>60); Globulin 3.6 g/dL (2.2-4.2); Glucose 97 mg/dL (74-106); High Density Lipoprotein 55 mg/dL; Potassium 3.7 mmol/L (3.5-5.1); Protein, Total 7.2 g/dL (6.4-8.2); Sodium Level 142 mmol/L (136-145); Triglycerides 101 mg/dL; Very Low Density Lipoprotein 20 mg/dL (5-40)
== END | disposition home or self-care (01) ==
LOC: LAB 09:09
PROVIDERS: PCP Family Medicine; Visit Provider Family Medicine
DX: E78.5 Hyperlipidemia, unspecified (principal); Z51.81 Encounter for therapeutic drug level monitoring
CPT/HCPCS: 36415; 80053; 80061; 85025

== ENCOUNTER → 2022-07-24 | Outpatient (CLI) | payer OTHER, SELFPAY ==
--- NOTE | 2022-07-24 13:16 | BI_ITS ---
MAMMOGRAPHY - BILATERAL SCREENING REASON FOR EXAM: Female, 62 years old. Routine annual screening examination. PERTINENT HISTORY: Aunt with breast cancer. History of prior right ultrasound-guided breast biopsy. TECHNIQUE: Digital bilateral breast cristian (3D mammographic acquisition) in the CC and MLO projections. 2-D mediolateral oblique (MLO) and craniocaudad (CC) views of both breasts were obtained. CAD: Full Field Digital Mammography with Computer Added Detection was performed. COMPARISON: Comparison is made with prior study dated 01/01/2021 and 12/24/2019. FINDINGS: Breast Composition: There are scattered areas of fibroglandular density. There are no dominant masses or suspicious calcifications. A tissue clip marker is once again seen in the deep upper lateral aspect of the right breast. Stable small benign-appearing bilateral axillary lymph nodes. No other significant abnormalities are identified. There has been no significant change since the prior study. BI/SCRN MAMM (CAD)W/CRISTIAN BILAT IMPRESSION: Stable bilateral screening mammogram. Yearly follow-up mammogram recommended. (A) ASSESSMENT CATEGORY: BIRADS Category 2: Benign. A letter regarding these results will be sent to the patient by the facility within 30 days. Approximately 10% of breast cancers are not detected by mammography. A normal mammogram should not delay biopsy of a clinically suspicious abnormality. [id number] Electronically Signed: Toby Jasso MD at 13:56 EST ,
== END | disposition home or self-care (01) ==
LOC: OPBI 13:15
PROVIDERS: PCP Family Medicine; Visit Provider Family Medicine
DX: Z12.31 Encounter for screening mammogram for malignant neoplasm of breast (principal)
CPT/HCPCS: 77063; 77067

== ENCOUNTER → 2022-08-13 | Outpatient (CLI) | payer OTHER, SELFPAY ==
--- NOTE | 2022-08-13 13:48 | ECHOD_ITS ---
Reason For Study: Murmur Procedure This was a 2D Doppler, Color Flow transthoracic echocardiogram. The study was technically difficult. Exam performed in department. Left Ventricle Normal LV size. Left ventricular systolic function is normal. The estimated ejection fraction is 60 %. No evidence for diastolic dysfunction. No regional wall motion abnormalities noted. Right Ventricle Normal RV size. Normal systolic function. Atria The left atrium is mildly enlarged. Normal right atrium. No doppler evidence for ASD. Mitral Valve There is no mitral annular calcification. Normal mitral valve. Trivial mitral valve insufficiency. Tricuspid Valve Normal tricuspid valve. Mild tricuspid valve insufficiency. Right ventricular systolic pressure estimated to be 21 mmHg. Aortic Valve Trisinus/trileaflet aortic valve. Mild focal aortic valve calcification. Pulmonic Valve The pulmonic valve is not well visualized. Trivial pulmonic valve insufficiency. Great Vessels Normal sized aortic root. Pericardium/Pleural No pericardial effusion. MMode/2D Measurements & Calculations LVIDd: 3.9 cm IVSd: 0.94 cm Ao root diam: 2.9 cm LVIDs: 2.4 cm LVPWd: 0.89 cm LA dimension: 4.3 cm RVDd: 3.5 cm FS: 38.2 % LAV(MOD-bp): 58.7 ml LA A4 area: 20.6 cm2 RA A4 area: 14.3 cm2 LAV(MOD-bp) Indexed: 28.2 ml/m2 LAV(MOD-sp2): 54.6 ml LAV(MOD-sp4): 53.0 ml Time Measurements MV dec time: 0.23 sec Doppler Measurements & Calculations MV E max alexei: 76.4 cm/sec Lat Peak E' Alexei: 8.3 cm/sec Med Peak E' Alexei: 8.5 cm/sec MV A max alexei: 95.1 cm/sec E/E' lat: 9.2 E/E' med: 8.9 MV E/A: 0.80 MV V2 max: 107.1 cm/sec MV P1/2t max alexei: 93.9 cm/sec Ao V2 max: 194.7 cm/sec MV max P.6 mmHg MV P1/2t: 87.7 msec Ao max P.2 mmHg MV V2 mean: 57.9 cm/sec MV dec slope: 313.6 cm/sec2 Ao V2 mean: 137.6 cm/sec MV mean P.6 mmHg MVA(P1/2t): 2.5 cm2 Ao mean P.6 mmHg MV V2 VTI: 33.5 cm Ao V2 VTI: 44.2 cm AV (velocity ratio): 0.73 LV V1 max: 139.1 cm/sec PA V2 max: 112.8 cm/sec TR max alexei: 212.2 cm/sec LV V1 max P.7 mmHg TR max P.1 mmHg LV V1 mean P.6 mmHg LV V1 mean: 103.2 cm/sec LV V1 VTI: 32.1 cm ECHO/Echo Complete Interpretation Summary The study was technically difficult. Left ventricular systolic function is normal. The estimated ejection fraction is 60 %. The left atrium is mildly enlarged. Trivial mitral valve insufficiency. Mild tricuspid valve insufficiency. Mild focal aortic valve calcification. Trivial pulmonic valve insufficiency. Right ventricular systolic pressure estimated to be 21 mmHg. No evidence for diastolic dysfunction. Ordering Physician: Romulo Mcguire Referring Physician: Margarita Meza Performed By: Lonnie Murphy RCS
== END | disposition home or self-care (01) ==
PROVIDERS: PCP Family Medicine; Referring Provider Internal Medicine Cardiovascular Disease; Visit Provider Internal Medicine Cardiovascular Disease
DX: R01.1 Cardiac murmur, unspecified (principal)
CPT/HCPCS: 93306

== ENCOUNTER → 2022-09-26 | Outpatient (CLI) | payer OTHER, SELFPAY ==
--- NOTE | 2022-09-26 15:06 | RAD_ITS ---
INDICATION: COUGH EXAMINATION/TECHNIQUE: X-RAY - XR Chest 2 Views COMPARISON: 12/24/2019 FINDINGS: LINES/DEVICES: None. LUNGS: No consolidation, edema or effusion. No pneumothorax. MEDIASTINUM AND CARDIOVASCULAR STRUCTURES: Cardiac silhouette not enlarged. Central airways and mediastinal contour are unremarkable. RAD/Chest PA and Lateral IMPRESSION: No radiographic evidence of acute cardiopulmonary disease. Electronically Signed: Romulo Ferro MD at 23:53 EST ,
== END | disposition home or self-care (01) ==
LOC: MTRAD 15:04
PROVIDERS: PCP Family Medicine; Referring Provider Family Medicine; Visit Provider Family Medicine
DX: R05.9 Cough, unspecified (principal)
CPT/HCPCS: 71046

== ENCOUNTER → 2023-10-06 | Outpatient (CLI) | payer OTHER, SELFPAY ==
[2023-10-06 09:19] LABS: Absolute Neutrophil Count 3.2 X10^3/uL (2.0-7.7); Basophil# 0.05 X10^3/uL; Basophil% 0.8 % (0-1); Eosinophil# 0.29 X10^3/uL; Eosinophils% 4.4 % (0-5); Hematocrit 39.8 % (37-47); Hemoglobin 13.2 g/dL (12.0-15.0); Lymphocyte % 39.6 % (19-41); Mean Corp Hgb Conc 33.2 g/dL (32-36); Mean Corpuscular Hgb 30.3 pg (27.0-32.0); Mean Corpuscular Volume 91.3 fL (81-99); Mean Platelet Vol. 10.5 fl (6.2-12.0); Monocyte# 0.43 X10^3/uL; Monocyte% 6.6 % (0-10); NRBC Flagged by Analyzer 0 % (0-5); Neutrophil # 3.17 X10^3/uL (2.7-7.7); Neutrophil % 48.3 % (47-70); Platelet Count 246 K/mm3 (150-450); RBC Distribution Width CV 13.2 % (11.6-14.6); RBC Distribution Width SD 44.7 fl (35.1-43.9); Red Blood Count 4.36 M/mm3 (4.2-5.4); White Blood Count 6.6 K/mm3 (4.4-11.0)
--- OUTSIDE RECORDS SUMMARY | 2023-10-06 09:32 | XMS RPT_ITS | CCD ---
Author Name Unknown Address [address] [place] [address] Organization [facility] Care Team Providers Care Geology Faculty Member Name Role Phone Unavailable Unavailable Unavailable Malys, Margarita A Unavailable StadnickYann S Unavailable Unavailable Stadnick, Yann S Unavailable Unavailable Stadnick, Yann S Unavailable Unavailable Stadnick, Yann Murdock Unavailable Unavailable STADNICK, YANN CORRINE Unavailable Unavailab More Haas Unavailable Unavailable [facility] Unavailable Unavailable CHERYL, MORE AIKEN Unavailable Unavailable CHERYL, MORE AIKEN Unavailable Unavailable LUNA, MORE AIKEN Unavailable Unavailable Malys, Margarita A Admitting Unavailable Malys, Margarita A Attending Unavailable Malys, Margarita A Primary Care Unavailable Kevin Ballard Admitting Unavailable WaytKeivn Attending Unavailable Malys, Margarita A Primary Care Unavailable Malys, Margarita A Primary Care Provider Felicia Medellin Unavailable Unavailable Malys, Margarita A Unavailable Unavailable Renetta Wiate Unavailable Unavailable MARTHA BALL Attending Unavailable YESSI, HASEEB ORCHANIAN Referring Unava ilable YESSI, HASEEB ORCHANIAN Admitting Unava ilable MALYS, MARGARITA A Primary Care Unavailable MALYS, MARGARITA A Primary Care Unavailable GABI LONG Attending Unavailable Malys, Margarita A Unavailable Malys DO, Margarita A Primary Care Provider [phone] ALIX ASIF Attending UnavailFABIÁN Weldon Referring Unavailable MALYS, MARGARITA A Primary Care Unavailable Allergies Allergy Classification Reported Allergen(s) Allergy Type Date of Onset Reaction(s) Facility (4 sources) Seasonal allergy; Translations: [SEASONAL ALLERGIES] Propensity to adverse reactions (disorder) [address] [facility] Repository Medications Current Medications Medication Drug Class(es) Dates Sig (Normalized) Sig (Original) azilsartan medoxomil 40 mg / chlorthalidone 12.5 mg oral tablet (3 sources) Thiazide-like Diuretic, Angiotensin 2 Receptor Traci Start: 05-14-2017 take 1 tablet by mouth once daily azilsartan med-chlorthalido ne (EDARBYCLOR) 40-12.5 mg Tab Take 1 tablet by mouth daily. 0 05/14/2017 Active CALCIUM-MAG OXIDE-VITAMIN D3 ORAL (3 sources) CALCIUM-MAG OXIDE-VITAMIN D3 ORAL Take by mouth daily. 0 Active Completed/Discontinued Medications Medication Drug Class(es) Dates Sig (Normalized) Sig (Original) aspirin 81 mg delayed release oral tablet (1 source) Platelet Aggregation Inhibitor, Nonsteroidal Anti-inflammatory Drug Start: 06-03-2018 take 1 tablet by mouth once daily aspirin, enteric coated (ASPIRIN, ENTERIC COATED) 81 mg EC tablet Take 81 mg by mouth once daily. 0 06/03/2018 Active Problems Active Problems Problem Classification Problem Date Documented Da te Episodic/Chronic Anxiety disorders (1 source) Mixed anxiety and depressive disorder; Translations: [Anxiety disorder, unspecified] Onset: 05-14-2017 05-14-2017 Chronic Cataract (1 source) Nuclear sclerotic cataract; Translations: [Age-related nuclear cataract, bilateral] Chronic Disorders of lipid metabolism (1 source) Hyperlipidemia; Translations: [Hyperlipidemia, unspecified] Onset: 01-17-2014 01-03-2015 Chronic Esophageal disorders (2 sources) Gastro-esophageal reflux disease without esophagitis; Translations: [Gastroesophageal reflux disease] Onset: 07-23-2018 07-23-2018 Chronic Essential hypertension (1 source) Hypertensive disorder; Translations: [Essential (primary) hypertension] Onset: 01-17-2014 01-03-2015 Chronic Headache; including migraine (1 source) Migraine with aura; Translations: [Migraine with aura, not intractable, with status migrainosus] Onset: 11-03-2017 11-03-2017 Chronic Inflammation; infection of eye (except that caused by tuberculosis or sexually transmitteddisease) (1 source) Bilateral punctate keratitis of eyes; Translations: [Punctate keratitis, bilateral] Onset: 06-04-2017 06-04-2017 Chronic Nutritional deficiencies (1 source) Vitamin D deficiency; Translations: [Vitamin D deficiency, unspecified] Onset: 02-07-2017 02-07-2017 Chronic Other and unspecified benign neoplasm (1 source) Personal history of colonic polyps; Translations: [Personal history of colonic polyps] Onset: 07-23-2018 Episodic Other eye disorders (1 source) Posterior vitreous detachment of right eye; Translations: [Vitreous degeneration, right eye] Chronic Other eye disorders (2 sources) Bilateral vitreous floaters; Translations: [Other vitreous opacities, bilateral] Onset: 04-09-2016 Chronic Other eye disorders (2 sources) Tear film insufficiency; Translations: [Dry eye syndrome of bilateral lacrimal glands] Onset: 04-09-2017 Episodic Other gastrointestinal disorders (1 source) Irritable bowel syndrome; Translations: [Irritable bowel syndrome without diarrhea] Onset: 01-17-2014 01-03-2015 Chronic Other gastrointestinal disorders (1 source) Constipation; Translations: [Constipation, unspecified] 02-07-2017 Episodic Other non-traumatic joint disorders (20 sources) Ankle pain; Translations: [Pain in joint, ankle and foot] Episodic Other non-traumatic joint disorders (20 sources) Joint pain in right hand; Translations: [Pain in joint, hand] Episodic Other nutritional; endocrine; and metabolic disorders (1 source) Obesity; Translations: [Obesity, unspecified] Onset: 07-11-2015 07-11-2015 Chronic Residual codes; unclassified (1 source) Obstructive sleep apnea syndrome; Translations: [Obstructive sleep apnea (adult) (pediatric)] Onset: 07-11-2015 07-11-2015 Chronic Transient cerebral ischemia (1 source) Amaurosis fugax; Translations: [Amaurosis fugax] Onset: 11-03-2017 11-03-2017 Chronic Unclassified (1 source) Unknown / UNK(Unknown) Onset: 08-04-2018 Past or Other Problems Problem Classification Problem Date Documented Da te Episodic/Chronic Esophageal disorders (2 sources) Esophagitis, unspecified; Translations: [Esophagitis] Onset: 07-23-2018 07-23-2018 Episodic Medical examination/evaluation (2 sources) Encounter for general adult medical examination without abnormal findings; Translations: [Encounter for general adult medical examination without abnormal findings] Onset: 09-09-2017 Episodic Nonspecific chest pain (3 sources) Other chest pain; Translations: [Other chest pain] Onset: 07-23-2018 07-23-2018 Episodic Other and unspecified benign neoplasm (1 source) History of polyp of colon; Translations: [Personal history of colonic polyps] Onset: 07-23-2018 07-23-2018 Episodic Other connective tissue disease (1 source) Fibromyalgia; Translations: [Fibromyalgia] Onset: 01-17-2014 01-03-2015 Episodic Other nervous system disorders (1 source) H/O: migraine; Translations: [Personal history of other diseases of the nervous system and sense organs] Onset: 05-29-2021 05-29-2021 Episodic Other non-traumatic joint disorders (3 sources) Hand joint pain; Translations: [Arthralgia of right hand] Episodic Residual codes; unclassified (1 source) Insomnia; Translations: [Insomnia, unspecified] Onset: 10-18-2014 01-03-2015 Episodic NEGATED: Highlighted row has not occurred!Residual codes; unclassified (5 sources) Disease Episodic Results Test Name Value Interpretation Reference Range Facil ity Vital Signs Date Time Vital Sign Value Performing Clinician Rashmi connor 09-09-2017 13:01-0500 BMI (Body Mass Index) 30.24 kg/m2 Yann Gloria [facility] Work Phone: 09-09-2017 13:01-0500 BP Diastolic 72 mm[Hg] Yann Gloria [facility] Work Phone: 09-09-2017 13:01-0500 BP Systolic 120 mm[Hg] Yann Gloria [facility] Work Phone: 09-09-2017 13:01-0500 Height 172.7 cm Yann Gloria [facility] Work Phone: 09-09-2017 13:01-0500 Pulse (Heart Rate) 66 /min Yann Gloria [facility] Work Phone: 09-09-2017 13:01-0500 Weight 90.22 kg Yann Gloria [facility] Work Phone: Encounters Encounter Date Encounter Type Care Provider Facility Start: 07-30-2022 End: 07-30-2022 [facility] Start: 07-30-2022 End: 07-30-2022 Patient encounter procedure Alix Asif OD Work Phone: Ophthalmology Procedures Date Procedure Procedure Detail Performing Clinician Start: 07-30-2022 Computerized ophthal steven imaging retina Alix Asif OD Work Phone: Start: 08-04-2018 Colonoscopy Alix phillips OD Work Phone: Start: 11-14-2016 Mammography Alix phillips OD Work Phone: Plan of Treatment Date Care Activity Detail Author Start: 08-04-2023 Colonoscopy COLONOSCOPY [facility] Start: 08-04-2023 COLORECTAL CANCER SCREENING COLORECTAL CANCER SCREENING [facility] Start: 05-09-2022 Influenza vaccination INFLUENZA (#1) [facility] Start: 11-08-2021 HPV TESTING HPV TESTING [facility] Start: 11-08-2021 PAP TESTING PAP TESTING [facility] Start: 07-05-2021 NASRA, Provider : Nori Osborn, Status: Pen, Time: 11:45 AM PTRECHECKA, Provider: Nori Osborn, Status: Pen, Time: 11:45 AM [facility] Work Phone: Start: 06-28-2021 PTRECHECKCarlos, Provider : Nori Osborn, Status: Pen, Time: 1:30 PM PTRECHECKCarlos, Provider: Nori Osborn, Status: Pen, Time: 1:30 PM [facility] Work Phone: Start: 06-27-2021 PTFUADULT4, Provider : Kisha Fernandez, Status: Pen, Time: 10:45 AM PTFUADULT4, Provider: Kisha Fernandez, Status: Pen, Time: 10:45 AM [facility] Work Phone: Start: 06-20-2021 PTFUADULT4, Provider : Kisha Fernandez, Status: Pen, Time: 11:30 AM PTFUADULT4, Provider: Kisha Fernandez, Status: Pen, Time: 11:30 AM [facility] Work Phone: Start: 06-13-2021 PTFUADULT4, Provider : Kisha Fernandez, Status: Pen, Time: 11:30 AM PTFUADULT4, Provider: Kisha Fernandez, Status: Pen, Time: 11:30 AM [facility] Work Phone: Start: 06-06-2021 PTFUADULT4, Provider : Kisha Fernandez, Status: Pen, Time: 11:30 AM PTFUADULT4, Provider: Kisha Fernandez, Status: Pen, Time: 11:30 AM [facility] Work Phone: Start: 05-31-2021 LIPID SCREEN LIPID SCREEN [facility] Start: 05-30-2021 PTFUADULT4, Provider : Kisha Fernandez, Status: Pen, Time: 9:15 AM PTFUADULT4, Provider: Kisha Fernandez, Status: Pen, Time: 9:15 AM [facility] Work Phone: Start: 05-25-2021 PTFUADULT4, Provider : Radha Galan, Status: Pen, Time: 2:00 PM PTFUADULT4, Provider: Radha Galan, Status: Pen, Time: 2:00 PM [facility] Work Phone: Start: 05-17-2021 PTRECHADUL, Provider : Nori Osborn, Status: Pen, Time: 1:30 PM PTRECHADUL, Provider: Nori Osborn, Status: Pen, Time: 1:30 PM [facility] Work Phone: Start: 05-11-2021 PTFUADULT4, Provider : Kisha Fernandez, Status: Pen, Time: 9:15 AM PTFUADULT4, Provider: Kisha Fernandez, Status: Pen, Time: 9:15 AM [facility] Work Phone: Start: 05-09-2021 PTFUADULT4, Provider : Kisha Fernandez, Status: Pen, Time: 11:30 AM PTFUADULT4, Provider: Kisha Fernandez, Status: Pen, Time: 11:30 AM [facility] Work Phone: Start: 05-07-2021 PTFUADULT4, Provider : Kisha Fernandez, Status: Pen, Time: 1:15 PM PTFUADULT4, Provider: Kisha Fernandez, Status: Pen, Time: 1:15 PM [facility] Work Phone: Start: 05-02-2021 PTFUADULT4, Provider : Kisha Fernandez, Status: Pen, Time: 11:30 AM PTFUADULT4, Provider: Kisha Fernandez, Status: Pen, Time: 11:30 AM [facility] Work Phone: Start: 05-02-2021 PTFUADULT4, Provider : Kisha Fernandez, Status: Pen, Time: 10:45 AM PTFUADULT4, Provider: Kisha Fernandez, Status: Pen, Time: 10:45 AM [facility] Work Phone: Start: 04-30-2021 PTFUADULT4, Provider : Kisha Fernandez, Status: Pen, Time: 1:15 PM PTFUADULT4, Provider: Kisha Fernandez, Status: Pen, Time: 1:15 PM [facility] Work Phone: Start: 04-25-2021 PTFUADULT4, Provider : Kisha Fernandez, Status: Pen, Time: 11:30 AM PTFUADULT4, Provider: Kisha Fernandez, Status: Pen, Time: 11:30 AM [facility] Work Phone: Start: 04-23-2021 PTFUADULT4, Provider : Kisha Fernandez, Status: Pen, Time: 1:15 PM PTFUADULT4, Provider: Kisha Fernandez, Status: Pen, Time: 1:15 PM [facility] Work Phone: Start: 04-23-2021 PTFUADULT4, Provider : Kisha Fernandez, Status: Pen, Time: 11:30 AM PTFUADULT4, Provider: Kisha Fernandez, Status: Pen, Time: 11:30 AM [facility] Work Phone: Start: 04-20-2021 PTFUADULT4, Provider : Haseeb Dee, Status: Pen, Time: 10:45 AM PTFUADULT4, Provider: Haseeb Dee, Status: Pen, Time: 10:45 AM [facility] Work Phone: Start: 04-18-2021 PTFUADULT4, Provider : Kisha Fernandez, Status: Pen, Time: 11:30 AM PTFUADULT4, Provider: Kisha Fernandez, Status: Pen, Time: 11:30 AM [facility] Work Phone: Start: 04-16-2021 PTFUADULT4, Provider : Kisha Fernandez, Status: Pen, Time: 1:15 PM PTFUADULT4, Provider: Kisha Fernandez, Status: Pen, Time: 1:15 PM [facility] Work Phone: Start: 04-11-2021 PTFUADULT4, Provider : Kisha Fernandez, Status: Pen, Time: 11:30 AM PTFUADULT4, Provider: Kisha Fernandez, Status: Pen, Time: 11:30 AM [facility] Work Phone: Start: 04-09-2021 PTFUADULT4, Provider : Kisha Fernandez, Status: Pen, Time: 1:15 PM PTFUADULT4, Provider: Kisha Fernandez, Status: Pen, Time: 1:15 PM [facility] Work Phone: Start: 04-04-2021 PTFUADULT4, Provider : Kisha Fernandez, Status: Pen, Time: 11:30 AM PTFUADULT4, Provider: Kisha Fernandez, Status: Pen, Time: 11:30 AM [facility] Work Phone: Start: 04-02-2021 PTFUADULT4, Provider : Kisha Fernandez, Status: Pen, Time: 1:15 PM PTFUADULT4, Provider: Kisha Fernandez, Status: Pen, Time: 1:15 PM [facility] Work Phone: Start: 03-30-2021 PTFUADULT4, Provider : Kisha Fernandez, Status: Pen, Time: 1:15 PM PTFUADULT4, Provider: Kisha Fernandez, Status: Pen, Time: 1:15 PM [facility] Work Phone: Start: 03-27-2021 PTFUADULT4, Provider : Antony iTan, Status: Pen, Time: 2:45 PM PTFUADULT4, Provider: Antony Tian, Status: Pen, Time: 2:45 PM [facility] Work Phone: Start: 12-01-2020 End: 12-01-2020 Immunization 12/01/2020 Immunization Primary Care Haseeb Chandler DO [address] [place] [address] [phone] [facility] Start: 11-30-2020 COVID-19 Vaccine (2 of 2 - Pfizer series) COVID-19 Vaccine (2 of 2 - Pfizer series) [facility] Start: 05-09-2020 Influenza vaccinatio n given Sequential Influenza Vaccine (#1) [facility] Start: 01-25-2020 DIABETES SCREEN DIABETES SCREEN [facility] Start: 11-14-2017 Mammography MAMMOGRAM [facility] Start: 05-09-2017 Influenza vaccination SEQUENTI AL INFLUENZA VACCINE (#1) [facility] Work Phone: Start: 2010 Administration of herpes zoster vaccine Zoster Vaccines (1 of 2) [facility] Start: 2010 Screening for malign ant neoplasm of colon [facility] Start: 2010 SHINGRIX VACCINE (1 of 2) SHINGRIX VACCINE (1 of 2) [facility] Start: 2005 COLOGUARD (FIT-DNA) COLOGUARD (FIT-D NA) [facility] Start: [address] COLONOGRAPHY [facility] Start: 2005 FECAL OCCULT BLOOD FECAL OCCULT BLOO D [facility] Start: 2005 SIGMOIDOSCOPY SIGMOIDOSCOPY [facility] Start: 1979 Urine microalbumin profile DTAP,TDAP,TD (1 - Tdap) [facility] Start: 1978 ANNUAL PCP TEAM GLOVE CLEANER EGRMAN DISEASE VISIT ANNUAL PCP TEAM CHRONIC DISEASE VISIT [facility] Start: 1978 BP CONTROLLED (<130/80) BP CON TROLLED (<130/80) [facility] Start: 1978 Hepatitis C antibody , confirmatory test Hepatitis C Screening [facility] Start: 1978 HIV SCREENING HIV SCREENING [facility] Start: 1975 HIV screening HIV Screening [facility] Start: 1972 Adolescent depressio n screening assessment Depression Screening (PHQ9) [facility] Start: 1963 History and physical examination, annual for health maintenance Wellness Visit [facility] Start: 1960 Screening mammography Mammogram [facility] Start: 1960 HEPATITIS C SCREENING HEPATITIS C SC NORMAN [facility] Work Phone: Start: 1960 Screening colonoscopy COLONOSCOPY [facility] Work Phone: Start: 1960 End: 1960 Screening for malignant neoplasm of cervix PAP SMEAR [facility] Work Phone: Start: 1960 End: 1960 Tetanus vaccination [facility] Work Phone: End: 09-09-2018 SANDRA SANDRA Routine Abnormal laboratory test result 1 Occurrences starting 09/09/2017 until 09/09/2018 [employer] Phone: End: 09-10-2018 Anti-DNA Double-Stranded Antibody Anti-DNA Double-Stranded Antibody Routine Abnormal laboratory test result 1 Occurrences starting 09/09/2017 until 09/10/2018 [facility] Work Phone: End: 09-10-2018 Beta-2 Glycoprotein 1 Antibodies, IgG Beta-2 Glycoprotein 1 Antibodies, IgG Routine Abnormal laboratory test result 1 Occurrences starting 09/09/2017 until 09/10/2018 [employer] Phone: End: 09-10-2018 Beta-2 Glycoprotein 1 Antibodies, IgM Beta-2 Glycoprotein 1 Antibodies, IgM Routine Abnormal laboratory test result 1 Occurrences starting 09/09/2017 until 09/10/2018 [employer] Phone: End: 09-10-2018 C3 Complement C3 Complement Routine Abnormal laboratory test result 1 Occurrences starting 09/09/2017 until 09/10/2018 [employer] Phone: End: 09-10-2018 C4 Complement C4 Complement Routine Abnormal laboratory test result 1 Occurrences starting 09/09/2017 until 09/10/2018 [employer] Phone: End: 09-10-2018 Cardiolipin Antibodies Cardiolipin Antibodies Routine Abnormal laboratory test result 1 Occurrences starting 09/09/2017 until 09/10/2018 [employer] Phone: End: 09-10-2018 CBC and Differential CBC and Differential Routine Abnormal laboratory test result 1 Occurrences starting 09/09/2017 until 09/10/2018 [employer] Phone: End: 09-10-2018 Complement, Total Complement, Total Routine Abnormal laboratory test result 1 Occurrences starting 09/09/2017 until 09/10/2018 [employer] Phone: End: 09-10-2018 MANNIE Screen (SSA/B,SM,ROVING MARKER,SCL70,JO1 ) MANNIE Screen (SSA/B,SM,ROVING MARKER,SCL70,NIKKY 1) Routine Abnormal laboratory test result 1 Occurrences starting 09/09/2017 until 09/10/2018 [facility] Work Phone: End: 09-09-2018 XR Hand Left 2 Views [facility] Work Phone: End: 09-09-2018 XR Hand Right 2 Views XR Hand Right 2 Views Routine Pain 1 Occurrences starting 09/09/2017 until 09/09/2018 [facility] Work Phone: End: 09-09-2018 XR Wrist Left 2 Views XR Wrist Left 2 Views Routine Pain 1 Occurrences starting 09/09/2017 until 09/09/2018 [facility] Work Phone: End: 09-09-2018 XR Wrist Right 2 Views XR Wrist Right 2 Views Routine Pain 1 Occurrences starting 09/09/2017 until 09/09/2018 [facility] Work Phone: [facility] NEGATED: Highlighted row has been ruled out! Planned Goals not documented [facility] Work Phone: Immunizations Immunization Date Immunization Notes Care Provider Laverne snell 12-01-2020 Pfizer SARS-CoV-2 Vaccination Martha Ball [facility] 11-09-2020 Pfizer SARS-CoV-2 Vaccination Gabi [facility] 07-24-2015 influenza, seasonal, injectable Alix Maxbeti OD Work Phone: [facility] Work Phone: 07-10-2015 influenza virus vaccine, unspecified formulation Alix Langbeti OD Work Phone: [facility] Work Phone: Payers Date Payer Category Payer Unknown 2015 Unknown [id number] 2015 Unknown MMO [employer] PPO [id number] 2015-Present [id number] 1960 Unknown [id number] 1960 Unknown [id number] 1960 Unknown [id number] 1960 Unknown [id number] 1960 Unknown [id number] 1960 Unknown [id number] Social History Date Type Detail Facility Start: 09-10-2017 Tobacco smoking stat [facility] Unknown if ever smoked [facility] Work Phone: Start: 1960 Sex Assigned At Not on file [facility] Work Phone: Start: 04-09-2016 End: 09-09-2017 Tobacco smoking status PAIS Never smoker [facility] Work Phone: Start: 04-09-2016 End: 09-09-2017 Tobacco use and exposure Never used [facility] Start: 09-09-2017 End: 07-30-2022 Alcohol intake Current non-drinker of alcohol (finding) [facility] Start: 07-20-2022 End: 07-30-2022 Exposure to SARS-CoV-2 (event) Not sure [facility] Medical Equipment Procedure Code Equipment Code Equipment Origin al Text Equipment Identifier Dates [id number] Implant - [id number] Start: 06-12-2016 Functional Status Date Assessment Result Facility NEGATED: Highlighted row Functional performance Functional status health issues are not documented Disease [facility] Work Phone: Mental Status Date Assessment Result Facility NEGATED: Highlighted row Cognitive function [Interpretation] Cognitive status health issues are not documented Disease [facility] Work Phone: Clinical Notes 03-01-2015 to 07-30-2022 Patient InstructionsAlix Yan Delilahmonse, OD - 07/30/2022 4:35 PM EST Note Date & Type Note Facility 07-30-2022 Note HNO ID: [id number] Author: Alix Asif, CHRISTIANO Service: ? Author Type: SALES PROJECT COORDINATOR Type: Progress Notes Filed: 07/30/2022 4:39 PM Note Text: ASSESSMENT/PLAN: 1. Posterior vitreous detachment of right eye - ICD9: 379.21, ICD10: H43.811 (primary diagnosis) 2. Vitreous floaters of both eyes - ICD9: 379.24, ICD10: H43.393 Signs and symptoms of a retinal tear/detachment (flashes, floaters or change in peripheral vision) were reviewed with the patients. Patient understands they should return or call our office immediately if any of theses symptoms present. 3. Dry eye syndrome of both eyes - ICD9: 375.15, ICD10: H04.123 Continue to use her artificial tears up to four times a day . 4. Nuclear sclerotic cataract of both eyes - ICD9: 366.16, ICD10: H25.13 Mild cataract in both eyes. Well tolerated at this time. Discussed possible future affect on daily activities to watch for. Monitor as instructed. Recommended yearly exams. Alix Asif, OD I have confirmed and edited as necessary the relevant ophthalmic history, ROS, and the neuro exam findings as obtained by others. I have seen and examined this patient. [facility] 07-30-2022 Instructions Alixcarlos Asif, OD - 07/30/2022 4:37 PM EST ASSESSMENT/PLAN: 1. Posterior vitreous detachment of right eye - ICD9: 379.21, ICD10: H43.811 (primary diagnosis) 2. Vitreous floaters of both eyes - ICD9: 379.24, ICD10: H43.393 Signs and symptoms of a retinal tear/detachment (flashes, floaters or change in peripheral vision) were reviewed with the patients. Patient understands they should return or call our office immediately if any of theses symptoms present. 3. Dry eye syndrome of both eyes - ICD9: 375.15, ICD10: H04.123 Continue to use her artificial tears up to four times a day . 4. Nuclear sclerotic cataract of both eyes - ICD9: 366.16, ICD10: H25.13 Mild cataract in both eyes. Well tolerated at this time. Discussed possible future affect on daily activities to watch for. Monitor as instructed. Recommended yearly exams. documented in this encounter [facility] 07-30-2022 History of Presen t illness Narrative ASSESSMENT/PLAN: 1. Posterior vitreous detachment of right eye - ICD9: 379.21, ICD10: H43.811 (primary diagnosis) 2. Vitreous floaters of both eyes - ICD9: 379.24, ICD10: H43.393 Signs and symptoms of a retinal tear/detachment (flashes, floaters or change in peripheral vision) were reviewed with the patients. Patient understands they should return or call our office immediately if any of theses symptoms present. 3. Dry eye syndrome of both eyes - ICD9: 375.15, ICD10: H04.123 Continue to use her artificial tears up to four times a day . 4. Nuclear sclerotic cataract of both eyes - ICD9: 366.16, ICD10: H25.13 Mild cataract in both eyes. Well tolerated at this time. Discussed possible future affect on daily activities to watch for. Monitor as instructed. Recommended yearly exams. Alix Asif, CHRISTIANO I have confirmed and edited as necessary the relevant ophthalmic history, ROS, and the neuro exam findings as obtained by others. I have seen and examined this patient. documented in this encounter [facility] 09-10-2021 Note Discharge Summary PHYSICAL THERAPY Referral/Discharge Information: Date of Discharge: 09/10/21 Date of Last Visit: 07/05/21 Date of Evaluation: 03/22/21 Number of Attended Visits: 22 Referred by: Dr. Dillon Referred for: s/p ankle ORIF Problems/Issues Addressed: (increased pain, decreased ankle ROM/strength) Status at Discharge: (unknown) Reason for Discharge: has not attended PT for past 30 days. Signatures Electronically signed by : Nori Osborn, PT; Sep 10 2021 12:08PM EST (Author) [facility] 05-30-2021 History of Presen t illness Narrative Pt tolerated session well this date evidenced by ability to complete increased reps without increased pain. Continued with manual therapy d/t pt stating she believed it helped pain last session. Pt reports requiring increased UE assist with neuro re-ed this date compared to a couple weeks ago. Pt does not report increased pain after session.Response to treatment: no change in pain. [facility] Work Phone: 01-25-2021 History of Presen t illness Narrative Patient is a 60 year female who presents with signs and symptoms consistent with diagnosis of L ankle trimalleolar fx s/p repair with hardware 01/25/21: increased pain, decreased ankle AROM, decreased ankle/LE strength (NT post-op), decreased ability as assessed by LEFS, impaired gait. Patient would benefit from skilled PT to decrease pain, increase ankle AROM, increase ankle strength, increase ability as assessed by LEFS (per script) for return to PLOF: able to amb without AD with normalized gait. Rehab potential is good due to compliance with post-op restrictions thus far. At initial evaluation, patient education was provided on ankle AROM exercises, adjusted crutches, reviewed partial WBing gait with CAM boot with crutches. Overall, at end of treatment session, patient reports no increased pain vs pre-evaluation.Clinical Presentation: Stable and/or uncomplicated characteristics.Level of Complexity: lowProblem List: activity limitations, ADLs/IADLs/self care skills, balance, decreased functional level, decreased knowledge of HEP, fall risk, flexibility, gait/locomotion, pain, participation restrictions, posture, range of motion/joint mobility and strength. [facility] Work Phone: 01-25-2021 History of Presen t illness Narrative Pt has attended 22 visits of skilled PT for L trimalleolar ankle fracture s/p repair with hardware 01/25/21 consisting of evaluation, ther ex, manual, gait training, neuro re-ed, and home exercises. Pt has benefited from PT as evidenced by increased ankle ROM/strength. While pt cont to lack sufficient ankle DF to fully squat and eversion to amb on uneven surfaces without pain, pt has knowledge/skills to cont progressing ankle ROM/strengthening and bal independently at home via a progressive HEP, which has been provided. Therefore, at this time skilled PT will be placed on hold for 30 days pending trial of self-management. Should pt elect to resume PT, cont 1x/wk for 8 weeks or 8 visits. [facility] Work Phone: 01-25-2021 Reason for visit Narrative Initial Evaluation . L trimalleolar ankle fracture s/p repair with hardware 01/25/21.Referred by: Dr. Dillon [facility] Work Phone: documented as of this encounter (statuses as of 07/30/2022) [facility] Posterior vitreous detachment of right eye- Primary Vitreous degeneration Vitreous floaters of both eyes Dry eye syndrome of both eyes Nuclear sclerotic cataract of both eyes Senile nuclear sclerosis [facility] Patient identified by name & . Patient wore a mask during treatment d/t Covid-19 precautions. * Treatment consisted of ther ex's and manual therapy. Weight shifts to 75% unloading. Added thera band ankle PRE's to HEP and orange and peach bands given. Patient uncomfortable with doing ankle circles, so these wre held this date. STM done to plantar surface of L foot with tenderness noted in ballof foot and arch of foot. Patient reporting no pain, just soreness at the end of treatment. [facility] Work Phone: History of Present illness Narrative* Patient ID confirmed using Name and . * Patient wearing mask throughout session today d/t COVID-19 precautions. * Patient with good tolerance to treatment, no c/o increased pain/discomfort in clinic. Emphasis thisdate on ROM and improving WB acceptance and compliance with 50% PWB. [facility] Work Phone: History of Present illness NarrativePatient tolerated treatment without pain. Reports tightness in plantar region of left foot. Patient has good form/understanding with ther-ex and reports compliance with HEP. Continue with left footROM/ strength to improve flexibility/ambulation/balance.[facility] Work Phone: Hisvgqv of Present illness Narrative* Fair tolerance with TE. About 75% with weight shifts today regarding the left LE. Increased DF to blue Thera-Band which patient tolerated well. STM to foot with tenderness and tightness noted. Reliefnoted following session. * Response to treatment: decreased pain. * Patient was able to complete today's treatment with some difficulty. [facility] Work Phone: History of Present illness Narrative* Fair tolerance with TE. Per s reports patient started putting full weight through the left LE. She continues to wear the boot. Pt. c/o soreness with ABC's. Increased resistance with resisted ankle4-ways. Pt. continues with tightness with the PF with STM, adhesions noted. Assisted patient with fitting ankle brace at end of session (states per MD that she can try brace if tolerated). Pt. left the boot on at end of session knowing she has some uneven ground to walk on. * Response to treatment: decreased pain. * Patient was able to complete today's treatment with some difficulty. [facility] Work Phone: Hisyjuk of Present illness Narrative* Fair tolerance with seated stretches and ankle 4-ways. No c/o increased sx.'s noted. Trial step upsand slant board this date which patient notes some soreness but tolerable. Trial IASTM per plan, toplantar fascia to decrease tightness. * Response to treatment: no change in pain. * Patient was able to complete today's treatment with some difficulty. [facility] Work Phone: History of Present illness Narrative* Patient identified by name & . Patient wore a mask during treatment d/t Covid-19 precautions. * Treatment consisted of * . [facility] Work Phone: History of Present illness Narrative* Patient identified by name & . Patient wore a mask during treatment d/t Covid-19 precautions. * Treatment consisted of ther ex's for L ankle ROM and strength, Gait and manual therapy. Patient ambulates with one crutch on R and leans to R with decreased heel strike, toe off, hip and knee flexion. Reviewed proper gait at length in // bars. HEP progressed today and handouts given. [facility] Work Phone: History of Present illness Narrative* Patient identified by name & . Patient wore a mask during treatment d/t Covid-19 precautions. * Treatment consisted of * Ambulating with boot, but without crutch some of the time in rehab area. [facility] Work [facility]: History of Present illness Narrative* Patient identified by name & . Patient wore a mask during treatment d/t Covid-19 precautions. * Treatment consisted of ther ex's and manual therapy. Ex's were progressed today with good toleranceand no complaints of increased pain. Continued with STW and IASTM at end of session for decreased tightness in plantar fascia and top of foot. Patient with improved weight bearing with 1 crutch and less leaning toward crutch with ambulation. Ambulating with boot, but without crutch some of the timein rehab area during treatment. Pain level the same post treatment. [facility] of Present illness Narrative* Patient identified by name & . Patient wore a mask during treatment d/t Covid-19 precautions. * Treatment consisted of ther ex's and STW, both manually and with hawk attorney tools. Patient arrived 15 min late today and unable to complete all ther ex's this session. Patient pain level the same posttreatment. [facility] Work Phone: History of Present illness Narrative* Patient identified by name & . Patient wore a mask during treatment d/t Covid-19 precautions. * Treatment consisted of NMR activities and ther ex's for L ankle strengthening and stability. Addresses SLS goal and reciprocal stair goal this treatment, with fair tolerance. Brace on with all activities today. Patient with slight increase in L ankle pain post treatment. [facility]: History of Present illness Narrative* Patient identified by name & . Patient wore a mask during treatment d/t Covid-19 precautions. * Treatment consisted of NMR activities and ther ex's. Patient ambulating without crutches today. Decreased UE assist needed with NMR activities. Improved gait, without assistive device, improved stability of L ankle. Symptoms the same pre and post treatment. [facility]: History of Present illness Narrative* Pt has attended 16 visits of skilled PT consisting of evaluation, ther ex, manual, gait training, and home exercises. Pt has benefited from PT as evidenced by increased ROM, increased ability as assessed by LEFS since initial evaluation. Pt would benefit from cont skilled PT to further increase ankle ROM, increase ankle strength, normalize gait for return to PLOF: able to complete SLS, amb with normalized gait without increased ankle pain. * At today's session, introduced BAPS board to increase ROM, no increased symptoms reported throughout. * Response to treatment: no change in pain. * Patient was able to complete today's treatment with some difficulty. [facility]: history of Present illness Narrative* Patient identified by name & . Patient wore a mask during treatment d/t Covid-19 precautions. * Treatment consisted of NMR activities, ther ex's and manual therapy. Able to progress NMR activities with good tolerance and no LOB's. Completed STW to lateral aspect of ankle and manual stretches for improved DF ROM. Patient with decreased pain to 3/10 post treatment. [facility]: history of Present illness Narrative* Patient identified by name & . Patient wore a mask during treatment d/t Covid-19 precautions. * Treatment consisted of NMR and manual therapy today. Held on ther ex's today to resume manual therapy for pain reduction. Patient tender at medial aspect of L ankle during STW today. Patient ambulating with decreased L hip & knee flexion and decreased heel strike and toe off today pretreatment with slight improvement post treatment. [facility] Work [facility]: History of Present illness Narrative* Patient identified by name & . Patient wore a mask during treatment d/t Covid-19 precautions. * Treatment consisted of ther ex's, NMR activities and manual STW done for left ankle ROM, strengthening, balance/stability and decreased restrictions. Patient tolerated treatment well with no exacerbation of symptoms. * Response to treatment: no change in pain. [facility] Work [facility]: History of Present illness NarrativePatient identified by name & . Patient wore a mask during treatment d/t Covid-19 precautions. Treatment consisted of ther ex's and NMR activities. Progressed ex's and added NMR activity of hurdles. Patient tolerated progression of treatment well with some slight increase in left ankle pain post treatment and fatigue.[facility] Work Phone: Assessments Diagnosis Pain - Primary Generalized pain Abnormal laboratory test res ult Other abnormal clinical finding Primary osteoarthritis of sanam th hands Summary Purpose Family History No Family History Records FoundNo Family History Records FoundNo Family History Records FoundNo Family History Records FoundNo Family History Records FoundNo Family History Records FoundNo Family History Records FoundNo Family History Records FoundNo Family History Records Found Advance Directives No Advanced Directives Records FoundDocuments on File Type Date Recorded Patient Application Counselor Expl anation Advance Directives and Livin g Will 11/09/2020 12:00 AM Documents on File Type Date Recorded Patient Application Counselor Expl anation Advance Directives and Living Will Medications Administered Section Active Administered Medications - up to 3 most recent administrations Medication Order MAR Action Action Date Dose Rate Site PHENYLephrine 2.5 % 1 Drop (AK-DILATE, MARIA R-SYNEPHRINE) 1 Drop, BOTH EYES, DIRECTED, Starting on Fri07/30/22 at 1600, Until Fri07/31/22 at 0359, Administer for dilation PROTECT FROM LIGHT Given 07/30/2022 4:00 PM EST 1 Drop proparacaine 0.5 % 1 Drop (ALCAINE) 1 Drop, BOTH EYES, DIRECTED, Starting on Fri07/30/22 at 1600, Until Fri07/31/22 at 0359, Administer for pneumo tonometry, tonopen tonometry, or pachymetry. In the event of a proparacaine shortage, administer tetracaine 0.5% ophthalmic drops 1 drop in both eyes as directed for pneumo tonometry, tonopen tonometry, or pachymetry Given 07/30/2022 4:00 PM EST 1 Drop tropicamide 1 % 1 Drop (MYDRIACYL) 1 Drop, BOTH EYES, DIRECTED, Starting on Fri07/30/22 at 1600, Until Fri07/31/22 at 0359, Administer for dilation Given 07/30/2022 4:00 PM EST 1 Drop Additional Source Comments INFORMATION SOURCE (unrecogn ized section and content) DATE CREATED AUTHOR AUTHOR'S ORGANIZ ATION 03/03/2018 [facility] DATE CREATED AUTHOR AUTHOR'S ORGANIZ ATION 08/17/2018 [facility] DATE CREATED AUTHOR AUTHOR'S ORGANIZ ATION 08/17/2018 [facility] DATE CREATED AUTHOR AUTHOR'S ORGANIZ ATION 08/17/2018 [facility] DATE CREATED AUTHOR AUTHOR'S ORGANIZ ATION 10/27/2018 [facility] DATE CREATED AUTHOR AUTHOR'S ORGANIZ ATION 12/03/2020 [facility] DATE CREATED AUTHOR AUTHOR'S ORGANIZ ATION 09/10/2021 [facility] DATE CREATED AUTHOR AUTHOR'S ORGANIZ ATION 07/31/2022 [facility] Reason for Visit (unrecogniz ed section and content) Source Comments (unrecognize d section and content) In the event this informatio n is protected by the Federal Confidentiality of Alcohol and Drug Abuse Patient Records regulations: The Federal rules restrict any use of the information to criminally investigate or prosecute any alcohol or drug abuse patient.[facility] Care Teams (unrecognized sec tion and content) FOR RECORDS PERTAINING TO PATIENTS WHO ARE OR HAVE BEEN ENROLLED IN A CHEMICAL DEPENDENCY/SUBSTANCEABUSE PROGRAM, SOME INFORMATION MAY BE OMITTED. This clinical summary was aggregated from multiple sources. Caution should be exercised in using it in the provision of clinical care. This summary normalizes information from multiple sources, and as a consequence, information in this document may materially change the coding, format and clinical context of patient data. In addition, data may be omitted in some cases. CLINICAL DECISIONS SHOULD BE BASED ON THE PRIMARY CLINICAL RECORDS. [facility]. provides no warranty or guarantee of the accuracy or completeness of information in this document.
[2023-10-06 09:46] LABS: Vitamin D,25 Hydroxy 82.2 ng/mL
[2023-10-06 09:54] LABS: ALB/GLOB Ratio 0.9 RATIO (0.9-2.4); AST(SGOT) 47 U/L (15-37); Alanine Aminotransfer ALT/SGPT 62 U/L (13-56); Albumin, Serum 3.5 g/dL (3.2-5.0); Alkaline Phosphatase 83 U/L (45-117); Anion Gap 5 (5-15); BUN 17 mg/dL (7-18); BUN/Creat Ratio 18.7 RATIO (10-20); Calcium,Total 9.1 mg/dL (8.5-10.1); Chloride 108 mmol/L (98-107); Cholesterol 166 mg/dL (200); Creatinine, Serum 0.91 mg/dL (0.55-1.02); EST Glomerular Filtration Rate 67 mL/min (>60); Est Glom Filt Rate - Afr Amer 80 mL/min (>60); Free T3 2.9 pg/mL (2.18-3.98); Globulin 3.7 g/dL (2.2-4.2); Glucose 121 mg/dL (74-106); High Density Lipoprotein 53 mg/dL; Potassium 3.6 mmol/L (3.5-5.1); Protein, Total 7.2 g/dL (6.4-8.2); Sodium Level 140 mmol/L (136-145); Thyroid Stim Hormone (TSH) 2.46 uIU/mL (0.358-3.74); Triglycerides 128 mg/dL; Very Low Density Lipoprotein 26 mg/dL (5-40)
== END | disposition home or self-care (01) ==
LOC: LAB 08:57
PROVIDERS: PCP Family Medicine; Referring Provider Family Medicine; Visit Provider Family Medicine
DX: E55.9 Vitamin D deficiency, unspecified (principal); E78.5 Hyperlipidemia, unspecified; R53.83 Other fatigue; Z51.81 Encounter for therapeutic drug level monitoring
CPT/HCPCS: 36415; 80053; 80061; 82306; 84439; 84443; 84481; 85025

== ENCOUNTER → 2023-11-29 | Outpatient (CLI) | payer OTHER, SELFPAY ==
[2023-11-29 10:09] LABS: AST(SGOT) 74 U/L (15-37); Alanine Aminotransfer ALT/SGPT 77 U/L (13-56); Albumin, Serum 3.6 g/dL (3.2-5.0); Alkaline Phosphatase 86 U/L (45-117); Anion Gap 5 (5-15); BUN 13 mg/dL (7-18); BUN/Creat Ratio 14.9 RATIO (10-20); Chloride 109 mmol/L (98-107); Creatinine, Serum 0.88 mg/dL (0.55-1.02); EST Glomerular Filtration Rate 69 mL/min (>60); Est Glom Filt Rate - Afr Amer 84 mL/min (>60); Globulin 3.5 g/dL (2.2-4.2); Glucose 122 mg/dL (74-106); Potassium 4.2 mmol/L (3.5-5.1); Protein, Total 7.1 g/dL (6.4-8.2); Sodium Level 141 mmol/L (136-145)
[2023-11-29 10:16] LABS: Hemoglobin A1c 6.5 % (3.8-5.6)
== END | disposition home or self-care (01) ==
LOC: LAB 08:55
PROVIDERS: PCP Family Medicine; Referring Provider Family Medicine; Visit Provider Family Medicine
DX: R74.8 Abnormal levels of other serum enzymes (principal); R73.01 Impaired fasting glucose
CPT/HCPCS: 36415; 80053; 83036

== ENCOUNTER → 2024-01-15 | Outpatient (CLI) | payer OTHER, SELFPAY ==
--- NOTE | 2024-01-15 07:38 | BI_ITS ---
MAMMOGRAPHY - BILATERAL SCREENING REASON FOR EXAM: Female, 63 years old. Routine annual screening examination. PERTINENT HISTORY: Aunt with breast cancer. History of prior right ultrasound-guided breast biopsy. TECHNIQUE: Digital bilateral breast cristian (3D mammographic acquisition) in the CC and MLO projections. 2-D mediolateral oblique (MLO) and craniocaudad (CC) views of both breasts were obtained. CAD: Full Field Digital Mammography with Computer Added Detection was performed. COMPARISON: Comparison is made with prior study of July 24, 2022 and January 01, 2021. FINDINGS: Breast Composition: There are scattered areas of fibroglandular density. There are no dominant masses or suspicious calcifications. A tissue clip marker is once again seen in the deep upper lateral aspect of the right breast. Stable bilateral fat containing axillary lymph nodes. No other significant abnormalities are identified. There has been no significant change since the prior study. BI/SCRN MAMM (CAD)W/CRISTIAN BILAT IMPRESSION: Stable bilateral screening mammogram. Yearly follow-up mammogram recommended. (A) ASSESSMENT CATEGORY: BIRADS Category 2: Benign. A letter regarding these results will be sent to the patient by the facility within 30 days. Approximately 10% of breast cancers are not detected by mammography. A normal mammogram should not delay biopsy of a clinically suspicious abnormality. [id number] Electronically Signed: Toby Jasso MD at 8:39 EDT ,
[2024-01-15 09:19] LABS: AST(SGOT) 55 U/L (15-37); Alanine Aminotransfer ALT/SGPT 63 U/L (13-56); Albumin, Serum 3.6 g/dL (3.2-5.0); Alkaline Phosphatase 75 U/L (45-117); Anion Gap 3 (5-15); BUN 17 mg/dL (7-18); BUN/Creat Ratio 15.7 RATIO (10-20); Calcium,Total 9.2 mg/dL (8.5-10.1); Chloride 105 mmol/L (98-107); Creatinine, Serum 1.08 mg/dL (0.55-1.02); EST Glomerular Filtration Rate 54 mL/min (>60); Est Glom Filt Rate - Afr Amer 66 mL/min (>60); Globulin 3.6 g/dL (2.2-4.2); Glucose 115 mg/dL (74-106); Potassium 3.7 mmol/L (3.5-5.1); Protein, Total 7.2 g/dL (6.4-8.2); Sodium Level 138 mmol/L (136-145)
== END | disposition home or self-care (01) ==
PROVIDERS: PCP Family Medicine; Referring Provider Advanced Practice Midwife; Visit Provider Advanced Practice Midwife
DX: Z12.31 Encounter for screening mammogram for malignant neoplasm of breast (principal); R74.8 Abnormal levels of other serum enzymes
CPT/HCPCS: 36415; 77063; 77067; 80053

== ENCOUNTER → 2024-03-06 | Outpatient (CLI) | payer OTHER, SELFPAY ==
[2024-03-06 09:04] LABS: Absolute Lymphocyte Count 2.08 X10^3/uL (0.83-4.51); Absolute Neutrophil Count 1.8 X10^3/uL (2.0-7.7); Basophil# 0.04 X10^3/uL; Basophil% 0.9 % (0-1); Eosinophil# 0.22 X10^3/uL; Hematocrit 41.2 % (37-47); Hemoglobin 13.4 g/dL (12.0-15.0); Lymphocyte # 2.08 X10^3/ul (0.83-4.51); Lymphocyte % 47.1 % (19-41); Mean Corp Hgb Conc 32.5 g/dL (32-36); Mean Corpuscular Hgb 30.7 pg (27.0-32.0); Mean Corpuscular Volume 94.5 fL (81-99); Mean Platelet Vol. 10.5 fl (6.2-12.0); Monocyte# 0.28 X10^3/uL; Monocyte% 6.3 % (0-10); NRBC Flagged by Analyzer 0 % (0-5); Neutrophil % 40.7 % (47-70); Platelet Count 256 K/mm3 (150-450); RBC Distribution Width CV 13.2 % (11.6-14.6); RBC Distribution Width SD 45.9 fl (35.1-43.9); Red Blood Count 4.36 M/mm3 (4.2-5.4); White Blood Count 4.4 K/mm3 (4.4-11.0)
[2024-03-06 09:21] LABS: Hemoglobin A1c 5.7 % (3.8-5.6)
[2024-03-06 10:04] LABS: AST(SGOT) 34 U/L (15-37); Alanine Aminotransfer ALT/SGPT 52 U/L (13-56); Albumin, Serum 3.7 g/dL (3.2-5.0); Alkaline Phosphatase 85 U/L (45-117); Anion Gap 5 (5-15); BUN 17 mg/dL (7-18); BUN/Creat Ratio 17.5 RATIO (10-20); Calcium,Total 9.2 mg/dL (8.5-10.1); Chloride 105 mmol/L (98-107); Cholesterol 157 mg/dL (200); Creatinine, Serum 0.97 mg/dL (0.55-1.02); EST Glomerular Filtration Rate 61 mL/min (>60); Est Glom Filt Rate - Afr Amer 74 mL/min (>60); Free T3 2.3 pg/mL (2.18-3.98); Globulin 3.8 g/dL (2.2-4.2); Glucose 98 mg/dL (74-106); High Density Lipoprotein 55 mg/dL; Potassium 3.9 mmol/L (3.5-5.1); Protein, Total 7.5 g/dL (6.4-8.2); Sodium Level 138 mmol/L (136-145); Thyroid Stim Hormone (TSH) 1.12 uIU/mL (0.358-3.74); Triglycerides 79 mg/dL; Very Low Density Lipoprotein 16 mg/dL (5-40)
[2024-03-08 08:29] LABS: Vitamin D,25 Hydroxy 63.5 ng/mL
== END | disposition home or self-care (01) ==
LOC: LAB 08:33
PROVIDERS: PCP Family Medicine; Referring Provider Family Medicine; Visit Provider Family Medicine
DX: E55.9 Vitamin D deficiency, unspecified (principal); E78.5 Hyperlipidemia, unspecified; R53.83 Other fatigue; R73.03 Prediabetes; Z51.81 Encounter for therapeutic drug level monitoring
CPT/HCPCS: 36415; 80053; 80061; 82306; 83036; 84439; 84443; 84481; 85025

== ENCOUNTER → 2024-12-08 | Outpatient (CLI) | payer OTHER, SELFPAY ==
--- NOTE | 2024-12-08 15:17 | EMB_PTH ---
PATIENT: JOHANNA DOVE LOC: [facility] U#:[id number] AGE/SX: 64/F ROOM: RE12/08/[address]: PERCY King : 1960 BED: DIS: 12/08/2024 SPEC #: [id number] RECD: 12/09/24 08:59 STATUS: NATHAN RENeda #: [id number] MARILEE: 12/08/24 15:[address]: Danielle Collins NP DEPT: SURGICAL PATHOLOGY RECD BY: Gordy Zamudio ENTERED: 12/09/24 08:59 SP TYPE: ENDOM BX/C ARNULFO DR: Dr. Margarita Meza DO Tissues: A - Endometrium, NOS Procedures: Surgery Specimen Level IV HEADER OPERATION: Endometrial biopsy PRE-OP DIAGNOSIS: Post menopausal bleeding TISSUE SUBMITTED: A- Endometrial lining MICROSCOPIC DIAGNOSIS A. Uterus, Endometrial Lining, Biopsy: - Superficial strips of benign endocervical and endometrial epithelium, - Few squamous epithelial cells. MICROSCOPIC DESCRIPTION Slides are reviewed. GROSS DESCRIPTION A. Received in formalin in a container labeled with the patient's name, date of , and EMB are multiple tiny and wispy fragments of dawson-lorenzo possible soft tissue admixed with mucus measuring approximately 1 x 1 x 0.1 cm. The specimen is submitted entirely for cellblock preparation in A1. [facility] 12-09-2024 CPT:[id number]
== END | disposition home or self-care (01) ==
LOC: LABSPEC 16:19
PROVIDERS: PCP Family Medicine; Referring Provider Nurse Practitioner Women's Health; Visit Provider Nurse Practitioner Women's Health
DX: N95.0 Postmenopausal bleeding (principal)
CPT/HCPCS: 88305

== ENCOUNTER → 2024-12-21 | Outpatient (CLI) | payer OTHER, SELFPAY ==
--- NOTE | 2024-12-21 06:56 | US_ITS ---
PROCEDURE: ABDOMEN COMPLETE 12/21/2024 REASON FOR EXAM: LEFT UPPER QUADRANT PAIN TECHNIQUE: Complete abdominal ultrasound mazariegos-scale images with color doppler. PATIENT PREPARATION: Per protocol COMPARISON: None FINDINGS: Exam slightly limited by shadowing bowel gas. Liver: Echogenic. 15.8 cm in length. Gallbladder: No visualized stones, sludge, wall thickening or pericholecystic fluid. Reportedly, sonographic Frye's was negative. Biliary tree: Unremarkable. CBD measures 4 mm. Pancreas: Partially obscured by shadowing bowel gas, grossly unremarkable as visualized. Right kidney: Unremarkable. 11.4 cm in length. Left kidney: Unremarkable. 11.7 cm in length. Spleen: Unremarkable. 10.7 cm in maximum dimension. Aorta: Unremarkable. IVC:Unremarkable. Other: No visualized free fluid. US/Abdomen Complete IMPRESSION: 1. No acute findings. If unexplained symptoms persist, consider CT. 2. Appearance of the liver most commonly associated with hepatic steatosis. Co rrelate with clinical and laboratory evaluation. 3. Additional description as above. Reading Location: [id number]
--- NOTE | 2024-12-21 07:31 | US_ITS ---
PROCEDURE: PELVIC W/ TRANSVAGINAL REASON FOR EXAM: Postmenopausal bleeding. TECHNIQUE: Transabdominal and transvaginal pelvic ultrasound COMPARISON: None FINDINGS: Measurements: Uterus: 6.9 cm x 4.2 cm x 3.1 cm with a volume of 46.8 mL Endometrial Thickness: 3.2 mm. Slightly thickened. Right Ovary: 2.7 cm x 1.1 cm x 1.1 cm with a volume of 1.8 mL. Left Ovary: Not visualized. TRANSABDOMINAL: Uterus: Heterogeneous appearance of the myometrium suggestive of fibroid change although no focal fibroid is seen. Endometrium: Slightly thickened measuring 3.2 mm. Right ovary: Unremarkable Left ovary: Not visualized. Other: No large pelvic mass identified. Transvaginal sonography was performed to better visualize the endometrium. TRANSVAGINAL: Uterus: Heterogeneous myometrial echotexture suggestive of fibroid change. Endometrium: Minimally thickened endometrium at 3.2 mm. Right ovary: Unremarkable Left ovary: Not identified Other adnexal findings: None. Cul-de-sac: No free intraperitoneal fluid identified. Tenderness: No tenderness US/Pelvic w/ Transvaginal IMPRESSION: Minimal endometrial thickening. Heterogeneous appearance of the myometrium. Reading Location: [place] [id number]
[2024-12-21 08:39] LABS: Absolute Lymphocyte Count 2.48 X10^3/uL (0.83-4.51); Absolute Neutrophil Count 2.8 X10^3/uL (2.0-7.7); Basophil# 0.04 X10^3/uL; Basophil% 0.7 % (0-1); Eosinophil# 0.22 X10^3/uL; Eosinophils% 3.7 % (0-5); Hematocrit 39.5 % (37-47); Hemoglobin 13.3 g/dL (12.0-15.0); Lymphocyte # 2.48 X10^3/ul (0.83-4.51); Lymphocyte % 42.2 % (19-41); Mean Corp Hgb Conc 33.7 g/dL (32-36); Mean Corpuscular Hgb 30.9 pg (27.0-32.0); Mean Corpuscular Volume 91.9 fL (81-99); Monocyte# 0.27 X10^3/uL; Monocyte% 4.6 % (0-10); NRBC Flagged by Analyzer 0 % (0-5); Neutrophil # 2.84 X10^3/uL (2.7-7.7); Neutrophil % 48.5 % (47-70); Platelet Count 277 K/mm3 (150-450); RBC Distribution Width CV 13.1 % (11.6-14.6); RBC Distribution Width SD 44.3 fl (35.1-43.9); White Blood Count 5.9 K/mm3 (4.4-11.0)
[2024-12-21 10:05] LABS: ALB/GLOB Ratio 1.4 RATIO (0.9-2.4); AST(SGOT) 24 U/L (<=31); Alanine Aminotransfer ALT/SGPT 25 U/L (<=34); Albumin, Serum 4.2 g/dL (3.4-4.8); Alkaline Phosphatase 77 U/L (35-104); Anion Gap 13 (5-15); BUN 18 mg/dL (4-19); BUN/Creat Ratio 20.8 RATIO (10-20); Calcium,Total 9.4 mg/dL (7.6-11.0); Carbon Dioxide 24.8 mmol/L (21.0-32.0); Chloride 103 mmol/L (98-108); Creatinine, Serum 0.88 mg/dL (0.70-1.20); EST Glomerular Filtration Rate 73 (>60); Free T3 3.3 pg/mL (2.18-3.98); Glucose 103 mg/dL (70-99); Potassium 3.6 mmol/L (3.3-5.1); Protein, Total 7.2 g/dL (5.9-8.4); Sodium Level 141 mmol/L (133-145); Total Bilirubin 0.41 mg/dL (0.00-1.30); Vitamin D,25 Hydroxy 54.7 ng/mL (30-100)
[2024-12-21 10:22] LABS: Hemoglobin A1c 5.7 % (<=5.6)
[2024-12-21 10:34] LABS: Cholesterol 182 mg/dL (<=200); High Density Lipoprotein 62 mg/dL; Low Density Lipoprotein Calc. 105 mg/dL; Triglycerides 75 mg/dL; Very Low Density Lipoprotein 15 mg/dL (5-40); cholesterol:hdl ratio screen 2.93
== END | disposition home or self-care (01) ==
PROVIDERS: PCP Family Medicine; Referring Provider Family Medicine; Visit Provider Family Medicine
DX: R10.12 Left upper quadrant pain (principal); E55.9 Vitamin D deficiency, unspecified; E78.5 Hyperlipidemia, unspecified; Z51.81 Encounter for therapeutic drug level monitoring; R53.83 Other fatigue; R73.03 Prediabetes
CPT/HCPCS: 36415; 76700; 76830; 76856; 80053; 80061; 82306; 83036; 84439; 84443; 84481; 85025

== ENCOUNTER → 2025-01-17 | Outpatient (CLI) | payer OTHER, SELFPAY ==
--- NOTE | 2025-01-17 16:15 | BI_ITS ---
EXAM: SCRN MAMM (CAD)W/CRISTIAN BILAT DATE: 01/17/2025 CLINICAL HISTORY: F, Age 64 y/o , SCREENING Aunt with breast cancer. History of prior right ultrasound-guided breast biopsy. BREAST CANCER RISK ASSESSMENT: Not assessed. TECHNIQUE: Bilateral screening digital breast tomosynthesis with 2D and 3D images. Computer aided detection. COMPARISON: Prior exam(s) dated January 15, 2024.. FINDINGS: TISSUE DENSITY: The breast tissue is composed of scattered area of fibroglandular density. Bilateral Breast Mammographic Findings: No significant masses, calcifications or other abnormalities are identified. A tissue clip marker is once again seen in the deep upper lateral aspect of the right breast. Stable bilateral fat containing axillary lymph nodes. BI/SCRN MAMM (CAD)W/CRISTIAN BILAT IMPRESSION: OVERALL FINAL ASSESSMENT: BIRADS 2 BENIGN FINDING RECOMMENDATION: Routine annual follow-up in 1 Year A letter with findings and recommendations will be mailed to the patient. Reading Location: [facility]
== END | disposition home or self-care (01) ==
LOC: OPBI 16:01
PROVIDERS: PCP Family Medicine; Referring Provider Obstetrics & Gynecology; Visit Provider Obstetrics & Gynecology
DX: Z12.31 Encounter for screening mammogram for malignant neoplasm of breast (principal)
CPT/HCPCS: 77063; 77067

== ENCOUNTER → 2025-03-10 | Outpatient (CLI) | payer OTHER, SELFPAY ==
[2025-03-10 11:20] LABS: Hematocrit 41.5 % (37-47); Hemoglobin 14.0 g/dL (12.0-15.0); Immature Granulocytes Count 0.020 X10^3/uL (0.0-0.0); Mean Corp Hgb Conc 33.7 g/dL (32-36); Mean Corpuscular Volume 91.8 fL (81-99); Mean Platelet Vol. 11.5 fl (6.2-12.0); NRBC Flagged by Analyzer 0 % (0-5); Platelet Count 286 K/mm3 (150-450); RBC Distribution Width CV 13.2 % (11.6-14.6); RBC Distribution Width SD 44.1 fl (35.1-43.9); Red Blood Count 4.52 M/mm3 (4.2-5.4); White Blood Count 6.4 K/mm3 (4.4-11.0)
[2025-03-10 11:49] LABS: AST(SGOT) 28 U/L (<=31); Alanine Aminotransfer ALT/SGPT 34 U/L (<=34); Albumin, Serum 4.5 g/dL (3.4-4.8); Alkaline Phosphatase 85 U/L (35-104); Anion Gap 12 (5-15); BUN 13 mg/dL (4-19); BUN/Creat Ratio 15.8 RATIO (10-20); Calcium,Total 9.8 mg/dL (7.6-11.0); Carbon Dioxide 25.5 mmol/L (21.0-32.0); Chloride 101 mmol/L (98-108); Globulin 3.5 g/dL (2.2-4.2); Glucose 87 mg/dL (70-99); Potassium 4.0 mmol/L (3.3-5.1)
--- OUTSIDE RECORDS SUMMARY | 2025-03-10 21:51 | XMS RPT_ITS | CCD ---
Author Organization [facility] ion [facility] Care Team Providers Care Vice President Regulatory Name Role Phone Unavailable Unavailable Unavailable Malys, Margarita A Unavailable Stadnick, Yann S Unavailable Unavailable Stadnick, Yann S Unavailable Unavailable Stadnick, Yann S Unavailable Unavailable Stadnick, Yann S Unavailable Unavailable STADNICK, YANN CORRINE Unavailable Unavailab More [place]as Unavailable Unavailable IMCA Unavailable Unavailable MORE LUNA Unavailable Unavailable MORE LUNA Unavailable Unavailable MORE LNUA Unavailable Unavailable Malys, Margarita A Admitting Unavailable Malys, Margarita A Attending Unavailable Ammonys, Margarita A Primary Care Unavailable Deni Ballard Admitting Unavailable Deni Ballard Attending Unavailable Malys, Margarita A Primary Care Unavailable Malys, Margarita A Primary Care Provider [phone] Felicia Medellin Unavailable Unavailable Malys, Margarita A Unavailable Unavailable Renetta Waite Unavailable Unavailable MARTHA BALL Attending Unavailable DENISE DICKSON Referring Unava ilable DENISE DICKSON Admitting Unava ilable MALYS, MARGARITA A Primary Care Unavailable MALYS, MARGARITA A Primary Care Unavailable GABI LONG Attending Unavailable Malys, Margarita A Unavailable Dr. Margarita Meza Primary Care Provider Elinor Blankenship Attending Provider Unavailable Dr. Jenise Edmonds Attending Provider Dr. Jenise Edmonds Referring Provider Dr. Jenise Edmonds Other Provider Dr. Margarita Meza Referring Provider Dr. Romulo Mcguire Attending Provider Derrick CORREIA, Margarita Godoy Primary Care Provider Derrick, Dr. Avila Primary Care Provider Derrick, Dr. Avila Referring Provider Wan OPERATOR [employer] CONCENTRATION, OPERATOR [employer] CONCENTRATION-C Bibi Attending Provider Derrick CORREIA, Dr. Avila Primary Care Provider [phone] Derrick CORREIA, Dr. Avila Referring Provider [phone] Karina OPERATOR [employer]CENTRATION-CDanielle Attending Provider [phone] Karina OPERATOR CAT[employer] CONCENTRATION-CDanielle Referring Provider [phone] Derrick CORREIA, Dr. Avila Attending Provider Miguel Monzon DO, Dr. Monte Attending Provider Miguel Monzon DO, Dr. Monte Referring Provider Malys, Margarita Primary Care Unavailable Karina OPERATOR [employer] CONCENTRATION, Danielle Attending Unavailable [place] OPERATOR CATALYST CONCENTRATIONRubiay Referring Unavailable Malys, Margarita Primary Care Unavailable Malys, Margarita Attending Unavailable Malys, Margarita Referring Unavailable Malys, Margarita Primary Care Unavailable Mell Roman Attending Unavailabl e Vande VelMell negron Referring Unavailabl e Malys, Margarita Primary Care Unavailable Malys, Margarita Attending Unavailable Malys, Margarita Referring Unavailable Malys, Margarita Primary Care Unavailable HarvinderBrendan vanegas Attending Unavailable RoofOsorio H Attending Unavailable Malys, Margarita Primary Care Unavailable Malys, Margarita Referring Unavailable Malys, Margarita Primary Care Unavailable Karina OPERATOR [employer] CONCENTRATION, Danielle Attending Unavailable Malys, Margarita Referring Unavailable DENISE ASIF Attending Unavailabl e SELF Referring Unavailable MALYS, MARGARITA A Primary Care Unavailable Malys DO, Margarita A Primary Care Provider ROD GARCIA DPM Attending Unavailable ROD GARCIA DPAnjali Primary Care Unavailable ROD GARCIA DPAnjali Admitting Unavailable Allergies Allergy Classification Reported Allergen(s) Allergy Type Date of Onset Reaction(s) Facility (5 sources) Seasonal allergy; Translations: [SEASONAL ALLERGIES] Propensity to adverse reactions (disorder) 7 Intolerance [facility] Medications Current Medications Medication Drug Class(es) Dates Sig (Normalized) Sig (Original) aspirin 81 mg delayed release oral tablet (10 sources) Platelet Aggregation Inhibitor, Nonsteroidal Anti-inflammatory Drug Start: 06-03-2018 take 1 tablet by mouth once daily aspirin, enteric coated (ASPIRIN, ENTERIC COATED) 81 mg EC tablet Take 81 mg by mouth once daily. 06/03/2018 Active Comment on above: Take 81 mg by mouth once daily. CALCIUM-MAG OXIDE-VITAMIN D3 ORAL (3 sources) CALCIUM-MAG OXIDE-VITAMIN D3 ORAL Take by mouth daily. 0 Active CALCIUM-MAG OXID E-VITAMIN D3 ORAL Take by mouth daily. Active bjjxihc-stvkwftiw-onkbrgv D2 500 mg-50 mg-100 unit chewable tablet (11 sources) Start: 09-23-2023 take 3 tablets by mouth once daily ebwhiym-hqowbjxch-pclsiwk D2 500 mg-50 mg-100 unit chewable tablet Active 3 TABLET PO DAILY September 23, 2023 2:53pm Start: 07-24-2022 End: 09-23-2023 take 3 tablets by mouth once daily yxvzlje-kbrxtlfwt-cbpygzs D2 500 mg-50 mg-100 unit chewable tablet Discontinued 3 TABLET PO DAILY July 24, 2022 4:53pm September 23, 2023 2:54pm Start: 07-24-2022 take 3 tablets by mo uth once daily mxdbvrc-fhqkwffdm-glvokqb D2 500 mg-50 mg-100 unit chewable tablet Active 3 TABLET PO DAILY July 24, 2022 3:53pm Start: 05-07-2018 End: 07-24-2022 take 1 tablet by mouth once daily uyivwur-iumizrdod-dbmpzby D2 500 mg-50 mg-100 unit chewable tablet Discontinued 1 TABLET PO DAILY May 07, 2018 12:00am July 24, 2022 4:55pm Start: 05-07-2018 End: 07-24-2022 take 1 tablet by mouth once daily toijlmx-nhhjgimdb-earxmvx D2 500 mg-50 mg-100 unit chewable tablet Discontinued 1 TABLET PO DAILY May 06, 2018 11:00pm July 24, 2022 3:55pm Qvpwhgg-Kuyvxhwqb-Ialzjog D2 500-50-100 mg-mg-unit tablet,chewable (9 sources) Start: 09-23-2023 Calcium-Magnes ium-Vitamin D2 500-50-100 mg-mg-unit tablet,chewable Active 3 {tbl} PO DAILY as needed for supplement September 23, 2023 2:53pm Start: 07-24-2022 End: 09-23-2023 Frewmeq-Nolokqatj-Sgoqltu D2 500-50-100 mg-mg-unit tablet,chewable Discontinued 3 {tbl} PO DAILY July 24, 2022 4:53pm September 23, 2023 2:54pm Start: 05-07-2018 End: 07-24-2022 Oblerit-Pmskbvqty-Hfkxtfq D2 500-50-100 mg-mg-unit tablet,chewable Discontinued 1 {tbl} PO DAILY May 07, 2018 12:00am July 24, 2022 4:55pm cetirizine hydrochloride 10 mg oral tablet (20 sources) Histamine-1 Receptor Antagonist Start: 06-10-2016 End: 07-24-2020 take 1 tablet by mouth once daily cetirizine (ZYRTEC) 10 mg tablet Take 1 tablet by mouth once daily. 0 06/10/2016 Active Comment on above: Take 1 tablet by [facility] once daily. cholecalciferol 1.25 mg oral capsule (17 sources) Vitamin D Start: 03-23-2024 take 1 capsule by mouth every other week as needed Cholecalciferol (Vitamin D3) 1,250 mcg (50,000 unit) capsule Active 1250 ug PO every 2 weeks as needed March 23, 2024 1:30pm Start: 05-10-2021 take 1 capsule by [facility] every week cholecalciferol, Vitamin D3, (VITAMIN D3) 1,250 mcg (50,000 unit) cap capsule TAKE 1 CAPSULE BY MOUTH once weekly 05/10/2021 Active Start: 01-26-2021 End: 03-23-2024 take 1 capsule by mouth every week as needed Cholecalciferol (Vitamin D3) 1,250 mcg (50,000 unit) capsule Discontinued 1250 ug PO EVERY WEEK as needed September 23, 2023 2:53pm March 23, 2024 1:32pm Comment on above: TAKE 1 CAPSULE BY [facility] once weekly Clobetasol (3 sources) Corticosteroid Start: Clobetasol 0.05 % ointment Active 1 NMA TOPICAL .COMPLEX 15 Jordan 30th, 2024 1:00am 1 applic topical daily prn. Small amount and massage in; clonazePAM 0.5 mg oral tablet (2 sources) Benzodiazepine Start: take 1 tablet by mouth twice daily clonazePAM (KLONOPIN) 0.5 mg tablet Indications: Insomnia, unspecified type , Anxiety and depression Take 1 tablet by mouth twice daily. 60 tablet 03/21/2017 Active Comment on above: Take 1 tablet by [facility] twice daily. COMPOUNDED PRESCRIPTION (2 sources) Start: COMPOUNDED PRESCRIPTION Knee walker / Roll A About 1 Device 0 05/28/2016 Active Comment on above: Knee walker / Roll A About cyclobenzaprine hydrochloride 5 mg oral tablet (2 sources) Muscle Relaxant Start: take 1 tablet by mouth once daily at bedtime cyclobenzaprine (FLEXERIL) 5 mg tablet Take 1 tablet by mouth daily at bedtime. 30 tablet 3 01/22/2017 Active Comment on above: Take 1 tablet by [facility] daily at bedtime. DULoxetine 30 mg delayed release oral capsule (18 sources) Serotonin and Norepinephrine Reuptake Inhibitor Start: End: take 1 capsule by mouth every other day Duloxetine 30 mg capsule,delayed release(DR/EC) Active 30 mg PO EVERY OTHER DAY June 24, 2019 9:29am Start: 06-10-2019 End: 06-24-2019 Duloxetine 30 mg capsule,del ayed release(DR/EC) Discontinued PO June 10, 2019 12:00am June 24, 2019 9:31am take 1 capsule by [facility] once daily DULoxetine (CYMBALTA) 30 mg capsule Take 30 mg by mouth once daily. Active Comment on above: Take 30 mg by mouth once daily. ferrous sulfate (2 sources) take 65 mg by mouth once daily FERROUS SULFATE, DRIED (IRON, DRIED, ORAL) Take 65 mg by mouth once daily. Active take 65 mg by mouth once daily F ERROUS SULFATE, DRIED (IRON, DRIED, ORAL) Take 65 mg by mouth once daily. 0 Active Comment on above: Take 65 mg by mouth once daily. FLUoxetine 20 mg oral capsule (5 sources) Serotonin Reuptake Inhibitor Start: 2016 take 1 capsule by mouth once daily FLUoxetine (PROZAC) 20 mg capsule Indications: Anxiety and depression Take 1 capsule by mouth once daily. 30 capsule 3 03/21/2017 Active Comment on above: Take 1 capsule by mo [facility] once daily. hydroCHLOROthiazide 25 mg oral tablet (20 sources) Thiazide Diuretic Start: 2019 End: 2023 take 1 tablet by mouth once daily hydroCHLOROthiazide (HYDRODIURIL, ESIDRIX) 25 mg tablet Take 1 tablet by mouth once daily. 03/14/2021 Active Start: 06-16-2018 End: 06-10-2019 take 1 tablet by mouth once daily Hydrochlorothiazide 25 mg tablet Discontinued 25 mg PO DAILY June 16, 2018 12:00am June 10, 2019 9:04am Comment on above: Take 1 tablet by [facility] once daily. hydroCHLOROthiazide 25 mg / losartan potassium 100 mg oral tablet (4 sources) Thiazide Diuretic, Angiotensin 2 Receptor Traci Start: 12-12-2024 losartan-hydroCHL OROthiazide (HYZAAR) 100-25 mg per tablet 12/12/2024 Active Start: 01-08-2024 Losartan-[place] chlorothiazide (Hyzaar) 100-25 mg tablet Active 1 {tbl} PO DAILY January 08, 2024 12:00am melatonin 5 mg oral tablet (20 sources) Start: 07-24-2022 take 1 tablet by mouth at bedtime as needed Melatonin 5 mg tablet Active 5 mg PO BEDTIME as needed July 24, 2022 1:00am Start: 01-24-2021 End: 07-24-2022 take 5 mg by mouth at bedtime Melatonin 3 mg Tablet Di scontinued 5 mg PO AT BEDTIME January 24, 2021 12:00am July 24, 2022 4:54pm Start: 01-24-2021 End: 07-24-2022 take 5 mg by mouth at bedtime Melatonin Discontinued 5 MG PO AT BEDTIME January 24, 2021 12:00am July 24, 2022 4:54pm Comment on above: Take 5 mg by mouth d aily at bedtime. meloxicam 15 mg oral tablet (2 sources) Nonsteroidal Anti-inflammatory Drug take 15 mg by mouth once daily MELOXICAM ORAL Take 15 mg by mouth once daily. Active Comment on above: Take 15 mg by mouth once daily. omeprazole 20 mg delayed release oral capsule (10 sources) Proton Pump Inhibitor Start: take 1 capsule by mouth once daily as needed for gastroesophageal reflux disease Omeprazole 20 mg capsule,delayed release(DR/EC) Active 20 mg PO DAILY as needed for gerd December 20, 2019 12:00am omeprazole (PRIL OSEC) 10 mg capsule Take 10 mg by mouth as needed. Active Comment on above: Take 10 mg by mouth as needed. pioglitazone 15 mg oral tablet (3 sources) Peroxisome Proliferator Receptor alpha Agonist, Peroxisome Proliferator Receptor gamma Agonist, Thiazolidinedione Start: take 1 tablet by mouth once daily Pioglitazone (Actos) 15 mg tablet Active 15 mg PO DAILY January 08, 2024 12:00am potassium 99 mg extended release oral tablet (1 source) take 1 tablet by mouth once daily potassium 99 mg Tab Take 99 mg by mouth daily. Active potassium chloride 8 meq extended release oral capsule (20 sources) Start: End: take 1 capsule by mouth once daily as needed Potassium Chloride 8 mEq capsule, extended release Active 8 meq PO DAILY as needed September 23, 2023 2:53pm Start: 05-07-2018 End: 06-24-2019 Potassium Chloride 8 mEq cap onelia, extended release Discontinued 99 meq PO DAILY May 07, 2018 12:00am June 24, 2019 9:31am Start: 05-07-2018 End: 06-24-2019 take 99 mEq by mouth once daily Potassium Chloride Discontinued 99 MEQ PO DAILY May 07, 2018 12:00am June 24, 2019 9:31am potassium gluconate 2.5 meq oral tablet (4 sources) Potassium 99 mg tab Take by mouth once daily. Active Comment on above: Take by mouth once d aily. simvastatin 20 mg oral tablet (20 sources) HMG-CoA Reductase Inhibitor Start: 8 End: 8 take 1 tablet by mouth every other day Simvastatin 20 mg tablet Discontinued 20 mg PO .QOD May 04, 2018 8:10am May 25, 2018 4:37pm Start: 03-21-2017 End: 05-04-2018 take 1 tablet by mouth once daily Simvastatin 20 mg tablet Active 20 mg PO DAILY May 25, 2018 4:37pm Comment on above: Take 1 tablet by [place] daily at bedtime. temazepam 15 mg oral capsule (13 sources) Benzodiazepine Start: 7 take 1 capsule by mouth once daily temazepam (RESTORIL) 15 mg cap Take 15 mg by mouth once daily. 10/09/2017 Active Comment on above: Take 15 mg by mouth once daily. UBIDECARENONE/VITAM IN E MIXED (COQ10 SG 100 ORAL) (2 sources) UBIDECARENONE/ TA MIN E MIXED (COQ10 SG 100 ORAL) Take by mouth once daily. Active UBIDECARENONE/ TAMIN E MIXED (COQ10 SG 100 ORAL) Take by mouth once daily. 0 Active Comment on above: Take by mouth once d aily. Vitamin B Complex (2 sources) Start: 01-17-2014 take 1 tablet by mouth once daily vitamin b complex (B COMPLETE) tab Indications: Fibromyalgia Take 1 tablet by mouth once daily. 0 01/17/2014 Active Comment on above: Take 1 tablet by [place] once daily. Vitamin B Complex (B Complex-Vitamin B12) tablet (8 sources) Start: 05-07-2018 Vitamin B Complex (B Complex-Vitamin B12) tablet Active 1 {tbl} PO DAILY May 07, 2018 12:00am Start: 05-07-2018 take 1 tablet by [facility] once daily Vitamin B Complex (B Complex-Vitamin B12) tablet Active 1 TABLET PO DAILY May 07, 2018 12:00am Start: 05-07-2018 take 1 tablet by [facility] once daily Vitamin B Complex (B Complex-Vitamin B12) tablet Active 1 TABLET PO DAILY May 06, 2018 11:00pm VITAMIN B COMPLEX ORAL (3 sources) Start: 01-17-2014 take 1 tablet by mouth once daily VITAMIN B COMPLEX ORAL Take 1 tablet by mouth daily. 0 01/17/2014 Active Start: 01-17-2014 take 1 tablet by [facility] once daily VITAMIN B COMPLEX ORAL Take 1 tablet by mouth daily. 01/17/2014 Active Completed/Discontinued Medications Medication Drug Class(es) Dates Sig (Normalized) Sig (Original) acetaminophen 325 mg / HYDROcodone bitartrate 7.5 mg oral tablet (8 sources) Opioid Agonist Start: 01-26-2021 End: 07-18-2021 Hydrocodone-Acetami nophen 7.5-325 mg tablet Discontinued 1 {tbl} PO Q4H as needed for pain, moderate 42 7 January 26, 2021 July 181 4:40pm Start: 01-26-2021 End: 07-18-2021 take 1 tablet by mouth every four hours Hydrocodone-Acetaminophen Discontinued 1 TABLET PO Q4H 42 7 January 26, 2021 July 18, 2021 4:40pm [id number] actuat albuterol 0.09 mg/actuat metered dose inhaler (8 sources) beta2-Adrenergic Agonist Start: 05-07-2018 End: 09-23-2023 Albuterol Sulfate (Ventolin Hfa) 90 mcg/actuation HFA aerosol inhaler Discontinued 1 NMA INHALATION EVERY 6 HOURS as needed for Sob &/Or Wheezing May 07, 2018 12:00am September 23, 2023 2:53pm Start: 05-07-2018 End: 09-23-2023 take 1 puff(s) by inhalation every six hours Albuterol Sulfate (Ventolin Hfa) 90 mcg/actuation HFA aerosol inhaler Discontinued 1 PUFF INHALATION EVERY 6 HOURS May 07, 2018 12:00am September 23, 2023 2:53pm amLODIPine 2.5 mg oral tablet (12 sources) Dihydropyridine Calcium Channel Traci Start: 09-23-2023 End: 01-08-2024 take 1 tablet by mouth once daily Amlodipine 2.5 mg tablet Discontinued 2.5 mg PO DAILY September 23, 2023 1:00am January 08, 2024 2:49pm Start: 05-07-2018 End: 06-16-2018 take 1 tablet by mouth once daily Amlodipine 5 mg tablet Discontinued 5 mg PO DAILY May 07, 2018 12:00am June 16, 2018 4:13pm azilsartan medoxomil 40 mg oral tablet (8 sources) Angiotensin 2 Receptor Traci Start: 06-24-2019 End: 07-24-2020 take 1 tablet by mouth once daily Azilsartan Medoxomil 40 mg tablet Discontinued 20 mg PO DAILY June 24, 2019 12:00am July 24, 2020 5:13pm Start: 06-24-2019 End: 07-24-2020 take 20 mg by mouth once daily Azilsartan Medoxomil Di scontinued 20 MG PO DAILY June 24, 2019 12:00am July 24, 2020 5:13pm azilsartan medoxomil 40 mg / chlorthalidone 12.5 mg oral tablet (11 sources) Thiazide-like Diuretic, Angiotensin 2 Receptor Traci Start: 05-14-2017 End: 05-04-2018 Azilsartan Med-Chlorthalidone (Edarbyclor) 40-12.5 mg tablet Discontinued 1 {tbl} PO daily November 11, 2017 1:00am May 04, 2018 8:10am clopidogrel 75 mg oral tablet (16 sources) [id number] Platelet Inhibitor Start: 06-03-2018 End: 06-25-2018 take 1 tablet by mouth once daily Clopidogrel 75 mg tablet Discontinued 75 mg PO DAILY June 04, 2018 9:09am June 25, 2018 1:49pm lubiprostone 0.024 mg oral capsule (20 sources) Chloride Channel Activator Start: 05-07-2018 End: 06-24-2019 take 1 capsule by mouth once daily Lubiprostone (Amitiza) 24 mcg capsule Discontinued 24 ug PO daily May 07, 2018 1:58pm June 24, 2019 9:30am Start: 05-04-2018 End: 05-07-2018 take 1 capsule by mouth every other day Lubiprostone (Amitiza) 24 mcg capsule Discontinued 24 ug PO .QOD May 04, 2018 12:00am May 07, 2018 2:03pm Start: 07-09-2017 take 1 capsule by mo ut twice daily AMITIZA 24 mcg capsule Take 24 mcg by mouth 2 (two) times a day. 07/09/2017 Active Start: 03-21-2017 take 1 capsule by mo ut twice daily at mealtime lubiprostone (AMITIZA) 24 mcg capsule Indications: Slow transit constipation Take 1 capsule by mouth twice daily with meals. 60 capsule 4 03/21/2017 Active Comment on above: Take 1 capsule by mo uth twice daily with meals. Magnesium (8 sources) Start: 06-24-2019 End: 12-20-2019 take 2 tablets by mouth once daily Magnesium 250 mg tablet Discontinued 500 mg PO DAILY June 24, 2019 12:00am December 20, 2019 8:41am Start: 06-24-2019 End: 12-20-2019 take 500 mg by mouth once daily Magnesium Discontinued 500 MG PO DAILY June 24, 2019 12:00am December 20, 2019 8:41am Start: 06-24-2019 End: 12-20-2019 take 500 mg by mouth once daily Magnesium Discontinued 500 MG PO DAILY June 23, 2019 11:00pm December 20, 2019 7:41am milnacipran hydrochloride 12.5 mg oral tablet (8 sources) Serotonin and Norepinephrine Reuptake Inhibitor Start: 06-10-2019 End: 06-24-2019 Milnacipran 12.5 mg tablet Discontinued PO 90 June 10, 2019 12:00am June 24, 2019 9:30am Start: 06-10-2019 End: 06-24-2019 Milnacipran Discontinued PO 90 June 10, 2019 12:00am June 24, 2019 9:30am phenylephrine hydrochloride 25 mg/ml ophthalmic solution (3 sources) alpha-1 Adrenergic Agonist Start: 02-14-2025 End: 02-14-2025 PHENYLephrine 2.5 % 1 drop (AK-DILATE, MARIA R-SYNEPHRINE) Start: 02-14-2025 End: 02-14-2025 1 drop, BOTH EYES, ONCE, 1 d ose, On Fri02/14/25 at 0830, FOR OPHTHALMIC USE ONLY PROTECT FROM LIGHT Start: 07-30-2022 End: 07-31-2022 PHENYLephrine 2.5 % 1 Drop ( AK-DILATE, MARIA R-SYNEPHRINE) proparacaine hydrochloride 5 mg/ml ophthalmic solution (3 sources) Local Anesthetic Start: 02-14-2025 End: 02-14-2025 proparacaine 0.5 % 1 drop (ALCAINE) Start: 02-14-2025 End: 02-14-2025 1 drop, BOTH EYES, ONCE, 1 d ose, On Fri02/14/25 at 0830, FOR THE EYE Start: 07-30-2022 End: 07-31-2022 proparacaine 0.5 % 1 Drop (A LCAINE) propranolol hydrochloride 60 mg oral tablet (20 sources) beta-Adrenergic Traci Start: 07-24-2020 End: 09-23-2023 take 1 tablet by mouth once daily Propranolol 60 mg tablet Discontinued 60 mg PO DAILY September 23, 2023 3:01pm September 23, 2023 3:07pm For STEVEN Start: 05-07-2018 End: 07-24-2020 take 1 tablet by mouth once daily as needed Propranolol 80 mg tablet Discontinued 80 mg PO daily as needed October 12, 2019 10:July 24, 2020 5:14pm Start: 11-11-2017 End: 05-07-2018 take 1 tablet by mouth once Propranolol 60 mg tablet Discontinued 60 mg PO ONCE November 11, 2017 1:00am May 07, 2018 1:59pm Start: 10-26-2017 take 1 tablet by [facility] three times daily propranolol (INDERAL) 20 mg tablet Take 20 mg by mouth three times daily. 10/26/2017 Active Comment on above: Take 20 mg by mouth three times daily. raNITIdine 150 mg oral tablet (11 sources) Histamine-2 Receptor Antagonist Start: 8 End: 0 take 1 capsule by mouth twice daily Ranitidine Hcl 150 mg capsule Discontinued 150 mg PO TWICE A DAY November 11, 2017 1:00am December 20, 2019 8:42am Start: 11-11-2017 End: 12-20-2019 take 1 capsule by mouth twice daily ranitidine 150 mg capsule Discontinued 150 MG PO TWICE A DAY November 11, 2017 12:00am December 20, 2019 7:42am Start: 06-10-2016 take 1 tablet by [facility] once daily ranitidine (ZANTAC) 150 MG tablet Take 150 mg by mouth daily. 0 06/10/2016 Active rivaroxaban 10 mg oral tablet (8 sources) Factor Xa Inhibitor Start: 01-26-2021 End: 07-18-2021 take 1 tablet by mouth once daily Rivaroxaban (Xarelto) 10 mg tablet Discontinued 10 mg PO DAILY January 26, 2021 12:00am July 18, 2021 4:41pm sertraline 50 mg oral tablet (8 sources) Serotonin Reuptake Inhibitor Start: 05-04-2018 End: 05-07-2018 take 1 tablet by mouth once daily Sertraline 50 mg tablet Discontinued 50 mg PO DAILY May 04, 2018 12:00am May 07, 2018 1:58pm tropicamide 10 mg/ml ophthalmic solution (3 sources) Anticholinergic Start: 02-14-2025 End: 02-14-2025 tropicamide 1 % 1 drop (MYDRIACYL) Start: 02-14-2025 End: 02-14-2025 1 drop, BOTH EYES, ONCE, 1 d ose, On Fri02/14/25 at 0830, FOR THE EYE Start: 07-30-2022 End: 07-31-2022 tropicamide 1 % 1 Drop (MYDR IACYL) ubidecarenone 100 mg oral capsule (8 sources) Start: 05-04-2018 End: 06-10-2019 Coenzyme Q10 (Coq-10) 100 mg capsule Discontinued 100 mg PO DAILY May 04, 2018 12:00am June 10, 2019 9:04am venlafaxine 37.5 mg oral tablet (18 sources) Serotonin and Norepinephrine Reuptake Inhibitor Start: 05-07-2018 End: 06-10-2019 take 1 tablet by mouth once daily Venlafaxine 37.5 mg tablet Discontinued 37.5 mg PO DAILY May 07, 2018 12:00am June 10, 2019 9:05am Start: 11-11-2017 End: 05-04-2018 take 1 tablet by mouth once Venlafaxine 37.5 mg tablet Discontinued 37.5 mg PO ONCE November 11, 2017 1:00am May 04, 2018 8:10am Start: 10-16-2017 take 1 capsule by mo uth once daily venlafaxine ER (EFFEXOR XR) 37.5 mg 24 hr capsule Take 1 capsule by mouth once daily. 10/16/2017 Active Comment on above: Take 1 capsule by mo uth once daily. Problems Active Problems Problem Classification Problem Date Documented Da te Episodic/Chronic Anxiety disorders (2 sources) Mixed anxiety and depressive disorder; Translations: [Anxiety disorder, unspecified] Onset: 05-14-2017 05-14-2017 Chronic Blindness and vision defects (6 sources) Myopia, bilateral; Translations: [Regular astigmatism, bilateral] Onset: 02-14-2025 02-14-2025 Episodic Cardiac dysrhythmias (13 sources) Ectopic beats; Translations: [Other premature depolarization] Chronic Cataract (3 sources) Nuclear sclerotic cataract; Translations: [Age-related nuclear cataract, bilateral] Onset: 02-14-2025 Chronic Diabetes mellitus without complication (3 sources) Prediabetes; Translations: [Prediabetes] 01-08-2024 Episodic Disorders of lipid metabolism (15 sources) Pure hypercholesterolemia; Translations: [Pure hypercholesterolemia, unspecified] Onset: 01-17-2014 Chronic Esophageal disorders (11 sources) Gastro-esophageal reflux disease without esophagitis; Translations: [Gastroesophageal reflux disease] Onset: 07-23-2018 07-23-2018 Chronic Essential hypertension (15 sources) Essential hypertension; Translations: [Essential (primary) hypertension] Onset: 01-17-2014 Chronic Fracture of lower limb (8 sources) Closed trimalleolar fracture; Translations: [Displaced trimalleolar fracture of unspecified lower leg, initial encounter for closed fracture] 01-24-2021 Episodic Headache; including migraine (10 sources) Migraine; Translations: [Migraine, unspecified, not intractable, without status migrainosus] Onset: 11-03-2017 11-03-2017 Chronic Heart valve disorders (13 sources) Heart murmur; Translations: [Cardiac murmur, unspecified] Episodic Inflammation; infection of eye (except that caused by tuberculosis or sexually transmitteddisease) (2 sources) Bilateral punctate keratitis of eyes; Translations: [Punctate keratitis, bilateral] Onset: 06-04-2017 06-04-2017 Chronic Menopausal disorders (7 sources) Postmenopausal bleeding; Translations: [Postmenopausal bleeding] Onset: 12-15-2024 12-08-2024 Chronic Comment on above: EMB and US pending. Nutritional deficiencies (3 sources) Vitamin D deficiency; Translations: [Vitamin D deficiency, unspecified] Onset: 02-07-2017 02-07-2017 Chronic Osteoarthritis (8 sources) Osteoarthritis; Translations: [Unspecified osteoarthritis, unspecified site] 12-20-2019 Chronic Other and unspecified benign neoplasm (5 sources) Personal history of colonic polyps; Translations: [Personal history of colonic polyps] Onset: 07-23-2018 Episodic Other eye disorders (1 source) Posterior vitreous detachment of right eye; Translations: [Vitreous degeneration, right eye] Chronic Other eye disorders (4 sources) Bilateral vitreous floaters; Translations: [Other vitreous opacities, bilateral] Onset: 04-09-2016 Chronic Other eye disorders (1 source) Vitreous degeneration, bilateral; Translations: [PVD (posterior vitreous detachment), bilateral] Onset: 02-14-2025 Chronic Other eye disorders (1 source) Other vitreous opacities, bilateral; Translations: [Vitreous floaters, bilateral] Onset: 02-14-2025 Chronic Other eye disorders (1 source) Bilateral posterior vitreous detachment; Translations: [Vitreous degeneration, bilateral] 02-14-2025 Chronic Other gastrointestinal disorders (10 sources) Irritable bowel syndrome; Translations: [Irritable bowel syndrome without diarrhea] Onset: 01-17-2014 01-03-2015 Chronic Other gastrointestinal disorders (2 sources) Constipation; Translations: [Constipation, unspecified] 02-07-2017 Episodic Other liver diseases (3 sources) Elevated liver enzymes level; Translations: [Abnormal levels of other serum enzymes] 01-08-2024 Episodic Other nervous system disorders (5 sources) Walking difficulty due to ankle and foot; Translations: [Difficulty in walking, not elsewhere classified] 01-24-2021 Chronic Other nervous system disorders (3 sources) Difficulty walking; Translations: [Difficulty in walking, not elsewhere classified] 01-24-2021 Chronic Other non-traumatic joint disorders (20 sources) Ankle pain; Translations: [Pain in joint, ankle and foot] 01-24-2021 Episodic Other non-traumatic joint disorders (20 sources) Joint pain in right hand; Translations: [Pain in joint, hand] Episodic Other nutritional; endocrine; and metabolic disorders (2 sources) Obesity; Translations: [Obesity, unspecified] Onset: 07-11-2015 07-11-2015 Chronic Other screening for suspected conditions (not mental disorders or infectious disease) (20 sources) Ultrasonography of breast abnormal; Translations: [Other abnormal and inconclusive findings on diagnostic imaging of breast] Onset: 01-20-2025 12-24-2019 Episodic Other skin disorders (3 sources) Lichen sclerosus et atrophicus; Translations: [Lichen sclerosus et atrophicus] 01-08-2024 Chronic Residual codes; unclassified (10 sources) Obstructive sleep apnea syndrome; Translations: [Obstructive sleep apnea (adult) (pediatric)] Onset: 07-11-2015 07-11-2015 Chronic Transient cerebral ischemia (2 sources) Amaurosis fugax; Translations: [Amaurosis fugax] Onset: 11-03-2017 11-03-2017 Chronic Unclassified (1 source) Unknown / UNK(Unknown) Onset: 08-04-2018 Past or Other Problems Problem Classification Problem Date Documented Da te Episodic/Chronic Abdominal pain (3 sources) Left upper quadrant pain; Translations: [Right lower quadrant pain] Onset: 01-17-2014 Resolved: 02-07-2017 09-06-2014 Episodic Esophageal disorders (3 sources) Esophagitis, unspecified; Translations: [Esophagitis] Onset: 07-23-2018 07-23-2018 Episodic Medical examination/evaluation (2 sources) Encounter for general adult medical examination without abnormal findings; Translations: [Encounter for general adult medical examination without abnormal findings] Onset: 09-09-2017 Episodic Nonspecific chest pain (13 sources) Other chest pain; Translations: [Other chest pain] Onset: 07-23-2018 07-23-2018 Episodic Other and unspecified benign neoplasm (10 sources) History of polyp of colon; Translations: [Personal history of colonic polyps] Onset: 07-23-2018 07-23-2018 Episodic Other connective tissue disease (10 sources) Fibromyalgia; Translations: [Fibromyalgia] Onset: 01-17-2014 01-03-2015 Episodic Other connective tissue disease (1 source) Foot pain; Translations: [Pain in unspecified foot] Onset: 03-01-2015 Resolved: 02-07-2017 02-07-2017 Episodic Other eye disorders (3 sources) Tear film insufficiency; Translations: [Dry eye syndrome of bilateral lacrimal glands] Onset: 04-09-2017 Episodic Other nervous system disorders (2 sources) H/O: migraine; Translations: [Personal history of other diseases of the nervous system and sense organs] Onset: 05-29-2021 05-29-2021 Episodic Other non-traumatic joint disorders (3 sources) Hand joint pain; Translations: [Arthralgia of right hand] Episodic Residual codes; unclassified (2 sources) Insomnia; Translations: [Insomnia, unspecified] Onset: 10-18-2014 01-03-2015 Episodic NEGATED: Highlighted row has not occurred!Residual codes; unclassified (5 sources) Disease Episodic Results Test Name Value Interpretation Reference Range Facility Breast imaging reportOrdered By: Toby Jasso on 01-18-2025 Study report [facility] Imaging Services [address] [place] [id number] SCRN MAMM (CAD)W/CRISTIAN BILAT MR#: [id number] Acct: [id number] Name: JOHANNA DOVE Rep #: [id number] : 1960 F 64 From: Paolo Jasso MD PCP: Dr. Margarita Meza DO Status: [facility] Study:SCRN MAMM (CAD)W/CRISTIAN BILAT Date of Exa m: 01/17/25 Exam# [id number] Ordering Dr: Mell Chávez DO EXAM: SCRN MAMM (CAD)W/CRISTIAN BILAT DATE: 01/17/2025 CLINICAL HISTORY: F, Age 64 y/o , SCREENING Aunt with breast cancer. History of prior right ultrasound-guided breast biopsy. BREAST CANCER RISK ASSESSMENT: Not assessed. TECHNIQUE: Bilateral screening digital breast tomosynthesis with 2D and 3D images. Computeraided detection. COMPARISON: Prior exam(s) dated January 15, 2024.. FINDINGS: TISSUE DENSITY: The breast tissue is composed of scattered area of fibroglandular density. Bilateral Breast Mammographic Findings: No significant masses, calcifications or other abnormalities are identified. A tissue clip marker is once again seen in the deep upper lateral aspect of the right breast. Stable bilateral fat containing axillary lymph nodes. BI/SCRN MAMM (CAD)W/CRISTIAN BILAT IMPRESSION: OVERALL FINAL ASSESSMENT: BIRADS 2 BENIGN FINDING RECOMMENDATION: Routine annual follow-up in 1 Year A letter with findings and recommendations will be mailed to the patient. Reading Location: [id number] CC: Dr. Mell Roman DO; Dr. Margarita Meza DO ~ Director Operations: Signed [facility] SCRN MAMM (CAD)W/CRISTIAN BILATo n 01-17-2025 SCRN MAMM (CAD)W/CRISTIAN BILAT [facility] Imaging Services [address] [place] [address] SCRN MAMM (CAD)W/CRISTIAN BILAT MR#: [id number] Acct: [id number] Name: JOHANNA DOVE Rep #: [id number] : 1960 F 64 From: Toby sorto MD PCP: Dr. Margarita Meza DO Status: REG CLI Study: SCRN MAMM (CAD)W/CRISTIAN BILAT Date of Exam: 01/06 11/02 Exam# [id number] Ordering Dr: Mell Roman DO EXAM: SCRN MAMM (CAD)W/CRISTIAN BILAT DATE: 01/17/2025 CLINICAL HISTORY: F, Age 64 y/o , SCREENING Aunt with breast cancer. History of prior right ultrasound-guided breast biopsy. BREAST CANCER RISK ASSESSMENT: Not assessed. TECHNIQUE: Bilateral screening digital breast tomosynthesis with 2D and 3D images. Computer aided detection. COMPARISON: Prior exam(s) dated January 15, 2024.. FINDINGS: TISSUE DENSITY: The breast tissue is composed of scattered area of fibroglandular density. Bilateral Breast Mammographic Findings: No significant masses, calcifications or other abnormalities are identified. A tissue clip marker is once again seen in the deep upper lateral aspect of the right breast. Stable bilateral fat containing axillary lymph nodes. BI/SCRN MAMM (CAD)W/CRISTIAN BILAT IMPRESSION: OVERALL FINAL ASSESSMENT: BIRADS 2 BENIGN FINDING RECOMMENDATION: Routine annual follow-up in 1 Year A letter with findings and recommendations will be mailed to the patient. Reading Location: [facility] CC: Dr. Mell Roman DO; Dr. Margarita Meza DO Director Operations: Signed Normal [facility] Abdomen Completeon Abdomen Complete [facility] Imaging Services [address] [place] [address] Abdomen Complete MR#: [id number] Acct: [id number] Name: JOHANNA DOVE Rep #: [id number] : 1960 F 64 From: Elan Mason MD PCP: Dr. Margarita Meza DO Status: REG CLI Study: Abdomen Complete Date of Exam: 12/21/24 Exam# [id number] Ordering Dr: Margarita Meza DO ADDENDUM by Dr. Toby Jasso MD on 12/21/24 at 1108 No addendum needed. Reading Location: [facility] 12/21/24 1108 Date cc: Dr. Margarita Meza DO * Signed PROCEDURE: ABDOMEN COMPLETE 12/21/2024 REASON FOR EXAM: LEFT UPPER QUADRANT PAIN TECHNIQUE: Complete abdominal ultrasound mazariegos-scale images with color doppler. PATIENT PREPARATION: Per protocol COMPARISON: None FINDINGS: Exam slightly limited by shadowing bowel gas. Liver: Echogenic. 15.8 cm in length. Gallbladder: No visualized stones, sludge, wall thickening or pericholecystic fluid. Reportedly, sonographic Frye's was negative. Biliary tree: Unremarkable. CBD measures 4 mm. Pancreas: Partially obscured by shadowing bowel gas, grossly unremarkable as visualized. Right kidney: Unremarkable. 11.4 cm in length. Left kidney: Unremarkable. 11.7 cm in length. Spleen: Unremarkable. 10.7 cm in maximum dimension. Aorta: Unremarkable. IVC:Unremarkable. Other: No visualized free fluid. US/Abdomen Complete IMPRESSION: 1. No acute findings. If unexplained symptoms persist, consider CT. 2. Appearance of the liver most commonly associated with hepatic steatosis. Correlate with clinical and laboratory evaluation. 3. Additional description as above. Reading Location: [id number] CC: Dr. Margarita Meza DO Director Operations: Signed Normal [facility] Absolute lymphocyte countOrd ered By: Margarita Meza on 12-21-2024 Lymphocytes Auto (Unsp spec) [#/Vol] 2.48 10*3/uL 0.83-4.51 [facility] Absolute neutrophil countOrd ered By: Margarita Meza on 12-21-2024 Neutrophils (Bld) [#/Vol] 2.8 10*3/uL 2.0-7.7 [facility] Anion gap in Serum or Plasma Ordered By: Margarita Meza on 12-21-2024 Anion gap [Moles/Vol] 13 mmol/L 5-15 [facility] Automated lymphocyte count a s percentage of total leukocytesOrdered By: Margarita Meza on 12-21-2024 Lymphocytes/100 WBC Auto (Unsp spec) 42.2 % High 19-41 [facility] BUN/creatinine ratioOrdered By: Margarita Meza on 12-21-2024 Urea nitrogen/Creatinine [Mass ratio] 20.8 mg/mg High 10-20 [facility] Basophil percentageOrdered B y: Margarita Meza on 12-21-2024 Basophils/100 WBC (Bld) 0.7 % 0-1 [facility] Bilirubin, totalOrdered By: Margarita Meza on 12-21-2024 Bilirubin [Mass/Vol] 0.41 mg/dL 0.00-1.30 [facility] CBC W/Diff, Automatedon 12-07 Absolute Lymph 2.48 X10 3/uL Normal 0.83-4.51 [facility] Comment on above: Performed By: #### L 100.0100, L501.47484, L500.4050, L506.1001, L501.9985, L500.4100, L501.9520, L506.0400 ####[facility] [address] [place], [address] Absolute Neut 2.8 X10 3/uL Normal 2.0-7.7 [facility] Comment on above: Performed By: #### L 100.0100, L501.20552, L500.4050, L506.1001, L501.9985, L500.4100, L501.9520, L506.0400 ####[facility] [address] [place], [address] Basophils/100 WBC (Bld) 0.7 % Normal 0-1 [facility] Comment on above: Performed By: #### L 100.0100, L501.13089, L500.4050, L506.1001, L501.9985, L500.4100, L501.9520, L506.0400 ####[facility] [address] [place], [address] Eosinophils/100 WBC (Bld) 3.7 % Normal 0-5 [facility] Comment on above: Performed By: #### L 100.0100, L501.96570, L500.4050, L506.1001, L501.9985, L500.4100, L501.9520, L506.0400 ####[facility] [address] [place], [address] Erythrocyte distribution width (RBC) [Ratio] 13.1 % Normal 11.6-14.6 [facility] Comment on above: Performed By: #### L 100.0100, L501.16152, L500.4050, L506.1001, L501.9985, L500.4100, L501.9520, L506.0400 ####[facility] [address] [place], [address] Hematocrit (Bld) [Volume fraction] 39.5 % Normal 37-47 [facility] Comment on above: Performed By: #### L 100.0100, L501.29171, L500.4050, L506.1001, L501.9985, L500.4100, L501.9520, L506.0400 ####[facility] [address] [place], [address] Hemoglobin (Bld) [Mass/Vol] 13.3 g/dL Normal 12.0-15.0 [facility] Comment on above: Performed By: #### L 100.0100, L501.50850, L500.4050, L506.1001, L501.9985, L500.4100, L501.9520, L506.0400 ####[facility] [address] [place], [address] IG% 0.300 Normal 0.0-0.9 [facility] Comment on above: Result Comment: IG% - Immature Granulocytes (promyelocytes, myelocytes and metamyelocytes) > 1% indicates that a LEFT SHIFT is Present. Performed By: #### L 100.0100, L501.98512, L500.4050, L506.1001, L501.9985, L500.4100, L501.9520, L506.0400 ####[facility] [address] [place], [address] Lymphocytes/100 WBC (Bld) 42.2 % High 19-41 [facility] Comment on above: Performed By: #### L 100.0100, L501.60492, L500.4050, L506.1001, L501.9985, L500.4100, L501.9520, L506.0400 ####[facility] [address] [place], [address] MCH (RBC) [Entitic mass] 30.9 pg Normal 27.0-32.0 [facility] Comment on above: Performed By: #### L 100.0100, L501.43118, L500.4050, L506.1001, L501.9985, L500.4100, L501.9520, L506.0400 ####[facility] [address] [place], [address] MCHC (RBC) [Mass/Vol] 33.7 g/dL Normal 32-36 [facility] Comment on above: Performed By: #### L 100.0100, L501.57915, L500.4050, L506.1001, L501.9985, L500.4100, L501.9520, L506.0400 ####[facility] [address] [place], [address] MCV (RBC) [Entitic vol] 91.9 fL Normal 81-99 [facility] Comment on above: Performed By: #### L 100.0100, L501.99100, L500.4050, L506.1001, L501.9985, L500.4100, L501.9520, L506.0400 ####[facility] [address] [place], [address] Monocytes/100 WBC (Bld) 4.6 % Normal 0-10 [facility] Comment on above: Performed By: #### L 100.0100, L501.65472, L500.4050, L506.1001, L501.9985, L500.4100, L501.9520, L506.0400 ####[facility] [address] [place], [address] Neutrophils/100 WBC (Bld) 48.5 % Normal 47-70 [facility] Comment on above: Performed By: #### L 100.0100, L501.66529, L500.4050, L506.1001, L501.9985, L500.4100, L501.9520, L506.0400 ####[facility] [address] [place], [address] Nucleated RBC (Bld) [#/Vol] 0 10*3/uL Normal 0-5 [facility] Comment on above: Performed By: #### L 100.0100, L501.84995, L500.4050, L506.1001, L501.9985, L500.4100, L501.9520, L506.0400 ####[facility] [address] [place], [address] Platelet mean volume (Bld) [Entitic vol] 11.0 fL Normal 6.2-12.0 [facility] Comment on above: Performed By: #### L 100.0100, L501.54688, L500.4050, L506.1001, L501.9985, L500.4100, L501.9520, L506.0400 ####[facility] [address] [place], [address] Platelets (Bld) [#/Vol] 277 10*3/uL Normal 150-450 [facility] Comment on above: Performed By: #### L 100.0100, L501.80291, L500.4050, L506.1001, L501.9985, L500.4100, L501.9520, L506.0400 ####[facility] [address] [place], [address] RBC (Bld) [#/Vol] 4.30 10*6/uL Normal 4.2-5.4 [facility] Comment on above: Performed By: #### L 100.0100, L501.06581, L500.4050, L506.1001, L501.9985, L500.4100, L501.9520, L506.0400 ####[facility] [address] [place], [place], [phone](032) RDW SD 44.3 fl High 35.1-43.9 [facility] Comment on above: Performed By: #### L 100.0100, L501.89408, L500.4050, L506.1001, L501.9985, L500.4100, L501.9520, L506.0400 ####[facility] [address] [place], [place], [phone](618) WBC (Bld) [#/Vol] 5.9 10*3/uL Normal 4.4-11.0 [facility] Comment on above: Performed By: #### L 100.0100, L501.03667, L500.4050, L506.1001, L501.9985, L500.4100, L501.9520, L506.0400 ####[facility] [address] [place], [place], [id number] Calculated very low density lipoprotein (VLDL) cholesterol measurementOrdered By: Margarita Meza on 12-21-2024 Calculated very low density lipoprotein (VLDL) cholesterol measurement 15 mg/dL 5-40 [facility] VLDL Cholesterol 15 mg/dL -40 [facility] Carbon dioxide, total [Moles /volume] in Central venous bloodOrdered By: Margarita Meza on 12-21-2024 CO2 [Moles/Vol] 24.8 mmol/L 21.0-32.0 [facility] Chloride assayOrdered By: Coral Mzea on 12-21-2024 Chloride [Moles/Vol] 103 mmol/L 98-108 [facility] Comprehensive Metabolic Prof ilon 12-21-2024 Albumin [Mass/Vol] 4.2 g/dL Normal 3.4-4.8 [facility] Comment on above: Order Comment: CBCD Performed By: #### L 100.0100, L501.26120, L500.4050, L506.1001, L501.9985, L500.4100, L501.9520, L506.0400 ####[facility] [address] [place], [address] Albumin/Globulin [Mass ratio] 1.4 {ratio} Normal 0.9-2.4 [facility] Comment on above: Order Comment: CBCD Performed By: #### L 100.0100, L501.28384, L500.4050, L506.1001, L501.9985, L500.4100, L501.9520, L506.0400 ####[facility] [address] [place], [place], [phone] ALK PHOS 77 U/L Normal 35-104 [facility] Comment on above: Order Comment: CBCD Performed By: #### L 100.0100, L501.50259, L500.4050, L506.1001, L501.9985, L500.4100, L501.9520, L506.0400 ####[facility] [address] [place], [place], [phone] ALT [Catalytic activity/Vol] 25 U/L Normal <=34 [facility] Comment on above: Order Comment: CBCD Performed By: #### L 100.0100, L501.56341, L500.4050, L506.1001, L501.9985, L500.4100, L501.9520, L506.0400 ####[facility] [address] [place], [place], [phone] AST [Catalytic activity/Vol] 24 U/L Normal <=31 [facility] Comment on above: Order Comment: CBCD Performed By: #### L 100.0100, L501.63760, L500.4050, L506.1001, L501.9985, L500.4100, L501.9520, L506.0400 ####[facility] [address] [place], [address] Bilirubin [Mass/Vol] 0.41 mg/dL Normal 0.00-1.30 [facility] Comment on above: Order Comment: CBCD Performed By: #### L 100.0100, L501.27041, L500.4050, L506.1001, L501.9985, L500.4100, L501.9520, L506.0400 ####[facility] [address] [place], [address] BUN/CRE 20.8 RATIO High 10-20 [facility] Comment on above: Order Comment: CBCD Performed By: #### L 100.0100, L501.37258, L500.4050, L506.1001, L501.9985, L500.4100, L501.9520, L506.0400 ####[facility] [address] [place], [address] Calcium [Mass/Vol] 9.4 mg/dL Normal 7.6-11.0 [facility] Comment on above: Order Comment: CBCD Performed By: #### L 100.0100, L501.00197, L500.4050, L506.1001, L501.9985, L500.4100, L501.9520, L506.0400 ####[facility] [address] [place], [address] Chloride [Moles/Vol] 103 mmol/L Normal 98-108 [facility] Comment on above: Order Comment: CBCD Performed By: #### L 100.0100, L501.85475, L500.4050, L506.1001, L501.9985, L500.4100, L501.9520, L506.0400 ####[facility] [address] [place], [place], [phone](911) CO2 [Moles/Vol] 24.8 mmol/L Normal 21.0-32.0 [facility] Comment on above: Order Comment: CBCD Performed By: #### L 100.0100, L501.62839, L500.4050, L506.1001, L501.9985, L500.4100, L501.9520, L506.0400 ####[facility] [address] [place], [place], [phone](985) Creatinine [Mass/Vol] 0.88 mg/dL Normal 0.70-1.20 [facility] Comment on above: Order Comment: CBCD Performed By: #### L 100.0100, L501.00218, L500.4050, L506.1001, L501.9985, L500.4100, L501.9520, L506.0400 ####[facility] [address] [place], [place], [phone] GAP 13 Normal 5-15 [facility] Comment on above: Order Comment: CBCD Performed By: #### L 100.0100, L501.59003, L500.4050, L506.1001, L501.9985, L500.4100, L501.9520, L506.0400 ####[facility] [address] [place], [place], [phone] GFR/1.73 sq M.predicted among non-blacks MDRD (S/P/Bld) [Vol rate/Area] 73 mL/min/{1.73_m2} Normal >60 [facility] Comment on above: Order Comment: CBCD Result Comment: mL/m in/1.73m2 CKD-EPI Creatinine Equation (2020) Performed By: #### L 100.0100, L501.02317, L500.4050, L506.1001, L501.9985, L500.4100, L501.9520, L506.0400 ####[facility] [address] [place], [address] Globulin (S) [Mass/Vol] 3.0 g/dL Normal 2.2-4.2 [facility] Comment on above: Order Comment: CBCD Performed By: #### L 100.0100, L501.07799, L500.4050, L506.1001, L501.9985, L500.4100, L501.9520, L506.0400 ####[facility] [address] [place], [address] Glucose [Mass/Vol] 103 mg/dL High 70-99 [facility] Comment on above: Order Comment: CBCD Performed By: #### L 100.0100, L501.70222, L500.4050, L506.1001, L501.9985, L500.4100, L501.9520, L506.0400 ####[facility] [address] [place], [address] Potassium [Moles/Vol] 3.6 mmol/L Normal 3.3-5.1 [facility] Comment on above: Order Comment: CBCD Performed By: #### L 100.0100, L501.48922, L500.4050, L506.1001, L501.9985, L500.4100, L501.9520, L506.0400 ####[facility] [address] [place], [address] Sodium [Moles/Vol] 141 mmol/L Normal 133-145 [facility] Comment on above: Order Comment: CBCD Performed By: #### L 100.0100, L501.22308, L500.4050, L506.1001, L501.9985, L500.4100, L501.9520, L506.0400 ####[facility] [address] [place], [place], [address] T PROT 7.2 g/dL Normal 5.9-8.4 [facility] Comment on above: Order Comment: CBCD Performed By: #### L 100.0100, L501.68137, L500.4050, L506.1001, L501.9985, L500.4100, L501.9520, L506.0400 ####[facility] [address] [place], [address] Urea nitrogen [Mass/Vol] 18 mg/dL Normal 4-19 [facility] Comment on above: Order Comment: CBCD Performed By: #### L 100.0100, L501.21527, L500.4050, L506.1001, L501.9985, L500.4100, L501.9520, L506.0400 ####[facility] [address] [place], [address] Eosinophil percentageOrdered By: Margarita Meza on 12-21-2024 Eosinophils/100 WBC (Bld) 3.7 % 0-5 [facility] Erythrocyte distribution wid th (RBC) [Ratio]Ordered By: Margarita Ammonys on 12-21-2024 Erythrocyte distribution width (RBC) [Entitic vol] 44.3 fL High 35.1-43.9 [facility] Erythrocyte distribution wid th ratioOrdered By: Margarita Malys on 12-21-2024 Erythrocyte distribution width (RBC) [Ratio] 13.1 % 11.6-14.6 [facility] Erythrocyte distribution wid th standard deviationOrdered By: Margarita Ammonys on 12-21-2024 Erythrocyte distribution width (RBC) [Ratio] 44.3 fl High 35.1-43.9 [facility] Free T3on 12-21-2024 Free T3 [Mass/Vol] 3.3 pg/mL Normal 2.18-3.98 [facility] Comment on above: Order Comment: NCBCD Performed By: #### L 100.0100, L501.21864, L500.4050, L506.1001, L501.9985, L500.4100, L501.9520, L506.0400 ####[facility] [address] [place], [address] Free D7Kkxauey By: Margarita campos on 12-21-2024 Free T3 [Mass/Vol] 3.3 pg/mL 2.18-3.98 [facility] Free Triiodothyronine (T3) pg/dL 3.3 pg/mL 2.18-3.98 [facility] GFR/1.73 sq M.predicted leora g non-blacks MDRD (S/P/Bld) [Vol rate/Area]Ordered By: Margarita Meza on 12-21-2024 Estimated GFR (MDRD) Non-Af Amer 73 >60 [facility] Comment on above: mL/min/1.73m2 CKD-EP I Creatinine Equation (2020) Glomerular filtration rate ( GFR) estimation/1.73 sq m using serum, plasma, or whole bOrdered By: Margarita Meza on 12-21-2024 GFR/1.73 sq M.predicted among non-blacks MDRD (S/P/Bld) [Vol rate/Area] 73 mL/min/{1.73_m2} >60 [facility] Comment on above: mL/min/1.73m2 CKD-EP I Creatinine Equation (2020) Hematocrit Auto (Bld) [Volum e fraction]Ordered By: Margarita Meza on 12-21-2024 Hematocrit (Bld) [Volume fraction] 39.5 % 37-47 [facility] Hemoglobin A1con 12-21-2024 HbA1c (Bld) [Mass fraction] 5.7 % Normal <=5.6 [facility] Comment on above: Result Comment: Norm al < 5.7 % Prediabetic 5.7 - 6.4 % Diabetic >or= 6.5 % Please note range changes. Performed By: #### L 100.0100, L501.24027, L500.4050, L506.1001, L501.9985, L500.4100, L501.9520, L506.0400 ####[facility] [address] [place], [address] Hemoglobin A1c percentageOrd ered By: Margaritawalt Meza on 12-21-2024 HbA1c (Bld) [Mass fraction] 5.7 % <5.7 [facility] Comment on above: Normal < 5.7 % Predi abetic 5.7 - 6.4 % Diabetic >or= 6.5 % Please note range changes. Hemoglobin measurementOrdere d By: Margarita Meza on 12-21-2024 Hemoglobin (Bld) [Mass/Vol] 13.3 g/dL 12.0-15.0 [facility] Immature granulocytes/100 WB C Auto (Bld)Ordered By: Margarita Meza on 12-21-2024 Immature granulocytes/100 WBC (Bld) 0.300 % 0.0-0.9 [facility] Comment on above: IG% - Immature Granu locytes (promyelocytes, myelocytes and metamyelocytes) > 1% indicates that a LEFT SHIFT is Present. LDL calc ser/plasOrdered By: Margarita Meza on 12-21-2024 Cholesterol in LDL [Mass/Vol] 105 mg/dL [facility] Comment on above: Rfwdtxyzsw=597-965 m g/dL & Higher Ohlh=129 mg/dL or greater LDL Cholesterol, Calculated 105 mg/dL [facility] Comment on above: Ctumlbtkrd=449-757 m g/dL & Higher Ztnu=646 mg/dL or greater Laboratory - Chemistry and C hemistry - challengeOrdered By: Margarita Meza on 12-21-2024 AST [Catalytic activity/Vol] 24 U/L <32 [facility] Lipid Profileon 12-21-2024 CHOL:HDL 2.93 Normal [facility] Comment on above: Performed By: #### L 100.0100, L501.29861, L500.4050, L506.1001, L501.9985, L500.4100, L501.9520, L506.0400 ####[facility] [address] [place], [address] Cholesterol [Mass/Vol] 182 mg/dL Normal <=200 [facility] Comment on above: Result Comment: Chol esterol level, Desirable <200 mg/dL Borderline high cholesterol 200-239 mg/dL High cholesterol >=240 mg/dL Recommendations of the NCEP Adult Treatment Panel for the following risk-cutoff thresholds for the [place] population. Performed By: #### L 100.0100, L501.62272, L500.4050, L506.1001, L501.9985, L500.4100, L501.9520, L506.0400 ####[facility] [address] [place], [address] Cholesterol in HDL [Mass/Vol] 62 mg/dL Normal [facility] Comment on above: Result Comment: Laverne onal Cholesterol Education Program (NCEP) guidelines: <40 mg/dL: Low HDL-cholesterol (major risk factor for CHD) >= 60 mg/dL: High HDL-cholesterol (negative risk factor for CHD) HDL-cholesterol is affected by a number of factors, e.g. smoking, exercise, hormones, sex and age. Performed By: #### L 100.0100, L501.33096, L500.4050, L506.1001, L501.9985, L500.4100, L501.9520, L506.0400 ####[facility] [address] [place], [address] Cholesterol in LDL [Mass/Vol] 105 mg/dL Normal [facility] Comment on above: Result Comment: Bord nbbdys=915-877 mg/dL Higher Jwqm=570 mg/dL or greater Performed By: #### L 100.0100, L501.63447, L500.4050, L506.1001, L501.9985, L500.4100, L501.9520, L506.0400 ####[facility] [address] [place], [address] Cholesterol in VLDL [Mass/Vol] 15 mg/dL Normal 5-40 [facility] Comment on above: Performed By: #### L 100.0100, L501.40675, L500.4050, L506.1001, L501.9985, L500.4100, L501.9520, L506.0400 ####[facility] [address] [place], [address] Triglyceride [Mass/Vol] 75 mg/dL Normal [facility] Comment on above: Result Comment: The drugs N-Acetylcysteine and Metamizole may falsely depress this assay. Normal range: <150 mg/dL Borderline High: 150-199 mg/dL High: 200-499 mg/dL Very High: >500 mg/dL Performed By: #### L 100.0100, L501.90455, L500.4050, L506.1001, L501.9985, L500.4100, L501.9520, L506.0400 ####[facility] [address] [place], [place], [id number] Lymphocytes Auto (Unsp spec) [#/Vol]Ordered By: Margarita Meza on 12-21-2024 Lymphocytes (Bld) [#/Vol] 2.48 10*3/uL 0.83-4.51 [facility] Lymphocytes/100 WBC Auto (Un sp spec)Ordered By: Margarita Meza on 12-21-2024 Lymphocytes/100 WBC (Bld) 42.2 % High 19-41 [facility] MCV (mean corpuscular volume ) determinationOrdered By: Margarita Meza on 12-21-2024 MCV (RBC) [Entitic vol] 91.9 fL 81-99 [facility] Mean corpuscular hemoglobin (MCH) determinationOrdered By: Margarita Meza on 12-21-2024 MCH (RBC) [Entitic mass] 30.9 pg 27.0-32.0 [facility] Mean corpuscular hemoglobin concentration (MCHC) determinationOrdered By: Margarita Meza on 12-21-2024 MCHC (RBC) [Mass/Vol] 33.7 g/dL 32-36 [facility] Mean platelet volume determi nationOrdered By: Margarita Meza on 12-21-2024 Platelet mean volume (Bld) [Entitic vol] 11.0 fL 6.2-12.0 [facility] Monocyte percentageOrdered B y: Margarita Meza on 12-21-2024 Monocytes/100 WBC (Bld) 4.6 % 0-10 [facility] Neutrophil percentageOrdered By: Margarita Meza on 12-21-2024 Neutrophils/100 WBC (Bld) 48.5 % 47-70 [facility] Nucleated red blood cell per centageOrdered By: Margarita Meza on 12-21-2024 Nucleated RBC/100 WBC (Bld) [Ratio] 0 % 0-5 [facility] Pelvic w/ Transvaginalon Pelvic w/ Transvaginal [facility] Imaging Services [address] [place], [place] [address] Pelvic w/ Transvaginal MR#: [id number] Acct: [id number] Name: JOHANNA DOVE Rep #: [id number] : 1960 F 64 From: Toby sorto MD PCP: Dr. Margarita Meza, DO Status: REG CLI Study: Pelvic w/ Transvaginal Date of Exam: 12/21/24 Exam# [id number] Ordering Dr: Danielle Collins [employer] OPERATOR [employer] -C PROCEDURE: PELVIC W/ TRANSVAGINAL REASON FOR EXAM: Postmenopausal bleeding. TECHNIQUE: Transabdominal and transvaginal pelvic ultrasound COMPARISON: None FINDINGS: Measurements: Uterus: 6.9 cm x 4.2 cm x 3.1 cm with a volume of 46.8 mL Endometrial Thickness: 3.2 mm. Slightly thickened. Right Ovary: 2.7 cm x 1.1 cm x 1.1 cm with a volume of 1.8 mL. Left Ovary: Not visualized. TRANSABDOMINAL: Uterus: Heterogeneous appearance of the myometrium suggestive of fibroid change although no focal fibroid is seen. Endometrium: Slightly thickened measuring 3.2 mm. Right ovary: Unremarkable Left ovary: Not visualized. Other: No large pelvic mass identified. Transvaginal sonography was performed to better visualize the endometrium. TRANSVAGINAL: Uterus: Heterogeneous myometrial echotexture suggestive of fibroid change. Endometrium: Minimally thickened endometrium at 3.2 mm. Right ovary: Unremarkable Left ovary: Not identified Other adnexal findings: None. Cul-de-sac: No free intraperitoneal fluid identified. Tenderness: No tenderness US/Pelvic w/ Transvaginal IMPRESSION: Minimal endometrial thickening. Heterogeneous appearance of the myometrium. Reading Location: [place] [address] CC: PERCY Collins; Dr. Margarita Meza, Director Operations: Signed Normal [facility] Platelet countOrdered By: Coral Meza on 12-21-2024 Platelets (Bld) [#/Vol] 277 10*3/uL 150-450 [facility] Potassium (Unsp spec) [Mass/ Vol]Ordered By: Margarita Meza on 12-21-2024 Potassium [Moles/Vol] 3.6 mmol/L 3.3-5.1 [facility] Potassium measurement (mass/ volume)Ordered By: Margarita Meza on 12-21-2024 Potassium (Unsp spec) [Mass/Vol] 3.6 mmol/L 3.3-5.1 [facility] RBC Auto (Bld) [#/Vol]Ordere d By: Margarita Meza on 12-21-2024 RBC (Bld) [#/Vol] 4.30 10*6/uL 4.2-5.4 [facility] Screening total cholesterol/ high density lipoprotein (HDL) cholesterol ratioOrdered By: Margarita Meza on 12-21-2024 Cholesterol.total/Pao sterol in HDL [Mass ratio] 2.93 {ratio} [facility] Serum creatinine measurement (mass/volume)Ordered By: Margarita Meaz on 12-21-2024 Creatinine [Mass/Vol] 0.88 mg/dL 0.70-1.20 [facility] Serum globulin measurementOr dered By: Margarita Meza on 12-21-2024 Globulin (S) [Mass/Vol] 3.0 g/dL 2.2-4.2 [facility] Serum glucose measurement (m ass/volume)Ordered By: Margarita Meza on 12-21-2024 Glucose [Mass/Vol] 103 mg/dL High 70-99 [facility] Serum or plasma alanine lisa otransferase (ALT) measurementOrdered By: Margarita Meza on 12-21-2024 ALT [Catalytic activity/Vol] 25 U/L <35 [facility] Serum or plasma albumin michele urement (mass/volume)Ordered By: Margarita Meza on 12-21-2024 Albumin [Mass/Vol] 4.2 g/dL 3.4-4.8 [facility] Serum or plasma albumin/glob ulin mass ratioOrdered By: Margarita Meza on 12-21-2024 Albumin/Globulin [Mass ratio] 1.4 {ratio} 0.9-2.4 [facility] Serum or plasma alkaline capo sphatase measurementOrdered By: Margarita Meza on 12-21-2024 ALP [Catalytic activity/Vol] 77 U/L 35-104 [facility] Serum or plasma calcium michele urement (mass/volume)Ordered By: Margarita Meza on 12-21-2024 Calcium [Mass/Vol] 9.4 mg/dL 7.6-11.0 [facility] Serum or plasma cholesterol in HDL measurement (mass/volume)Ordered By: Margarita Meza on 12-21-2024 Cholesterol in HDL [Mass/Vol] 62 mg/dL >40 [facility] Comment on above: National Cholesterol Education Program (NCEP) guidelines:<40 mg/dL: Low HDL-cholesterol (major risk factor for CHD)>= 60 mg/dL: High HDL-cholesterol (negative risk factor for CHD)HDL-cholesterol is affected by a number of factors, e.g. smoking, exercise, hormones, sex and age. Serum or plasma cholesterol measurement (mass/volume)Ordered By: Margarita Meza on 12-21-2024 Cholesterol [Mass/Vol] 182 mg/dL <201 [facility] Comment on above: Cholesterol level, D esirable <200 mg/dLBorderline high cholesterol 200-239 mg/dLHigh cholesterol >=240 mg/dLRecommendations of the NCEP Adult Treatment Panel for the following risk-cutoff thresholds for the [place] population. Serum or plasma urea nitroge n measurement (mass/volume)Ordered By: Margarita Meza on 12-21-2024 Urea nitrogen [Mass/Vol] 18 mg/dL 4-19 [facility] Sodium levelOrdered By: Margarita Meza on 12-21-2024 Sodium [Moles/Vol] 141 mmol/L 133-145 [facility] T4 Free Directon 12-21-2024 T4 FREE DIRECT 1.10 ng/dL Normal 0.76-1.46 [facility] Comment on above: Order Comment: NCBCD Performed By: #### L 100.0100, L501.39620, L500.4050, L506.1001, L501.9985, L500.4100, L501.9520, L506.0400 ####[facility] [address] [place], [place], [id number] T4 freeOrdered By: Margarita Dean s on 12-21-2024 Free T4 [Mass/Vol] 1.10 ng/dL 0.76-1.46 [facility] TSH DL <= 0.005 mIU/L QnOrde red By: Margarita Meza on 12-21-2024 Thyroid Stimulating Hormone (TSH) 2.260 uIU/mL 0.300-4.200 [facility] TSH Qn 2.260 uIU/mL 0.300-4.200 [facility] Thyroid Stim Hormone (TSH)on 12-21-2024 TSH 2.260 uIU/mL Normal 0.300-4.200 [facility] Comment on above: Performed By: #### L 100.0100, L501.14583, L500.4050, L506.1001, L501.9985, L500.4100, L501.9520, L506.0400 ####[facility] [address] [place], [address] Total proteinOrdered By: Katty Meza on 12-21-2024 Protein [Mass/Vol] 7.2 g/dL 5.9-8.4 [facility] Triglycerides measurementOrd ered By: Margarita Meza on 12-21-2024 Triglyceride [Mass/Vol] 75 mg/dL <199 [facility] Comment on above: The drugs N-Acetylcy steine and Metamizole may falsely depress this assay. Normal range: <150 mg/dLBorderline High: 150-199 mg/dLHigh: 200-499 mg/dLVery High: >500 mg/dL Vitamin D, 25-hydroxyOrdered By: Margarita Meza on 12-21-2024 Vitamin D 25-Hydroxy 54.7 ng/mL 30-100 [facility] Comment on above: Vitamin D StatusDefi ciency: <20 ng/mL (50nmol/L)Insufficiency: 20-30 ng/mL (50-75 nmol/L)Sufficiency: 30-100 ng/mL (75-250 nmol/L)Toxicity: >100 ng/mL (>250 nmol/L) Vitamin D,25 Hydroxyon 12-21 Vitamin D 25-OH 54.7 ng/mL Normal 30-100 [facility] Comment on above: Result Comment: Emelyn min D Status Deficiency: <20 ng/mL (50nmol/L) Insufficiency: 20-30 ng/mL (50-75 nmol/L) Sufficiency: 30-100 ng/mL (75-250 nmol/L) Toxicity: >100 ng/mL (>250 nmol/L) Performed By: #### L 100.0100, L501.89078, L500.4050, L506.1001, L501.9985, L500.4100, L501.9520, L506.0400 ####[facility] [address] [place], [address] White blood cell (WBC) count Ordered By: Margarita Meza on 12-21-2024 WBC (Bld) [#/Vol] 5.9 10*3/uL 4.4-11.0 [facility] Surgical pathology reportOrd ered By: Ania Penaloza on 12-15-2024 Surgical pathology study [facility] [employer] Office Visit Reporton 12-08-2024 [facility] Office Visit Report [facility] [address], [address] [place] [address] OFFICE VISIT Date of Service: 12/08/24 MR#: [id number] Acct: [id number] Name: JOHANNA DOVE Rep #: [id number] : 1960 Provider: PERCY acevedo Age/Sex: 64/F [place] [facility] Status: Signed Intake Vital Signs 03/23/24 13:22 12/08/24 15:01 Height 5 ft 8 in 5 ft 8 in Weight: 222 lb 216 lb BMI 33.7 32.8 BP 111/62 136/84 H Blood Pressure Location Lt brachial Position Sitting Respiration 16 Pulse 74 Pulse Source NIBP Intake Visit Reasons: PMB Chief Complaint: PMB_ EMB Establishment Guide Required: No Is patient in pain?: No Allergies No Known Allergies Allergy (Verified 12/08/24 15:12) Medications ???Medication ???Instructions ???Recorded ???Confirmed ???Type temazepam 15 mg capsule 15 mg PO QHS PRN Insomnia 11/11/17 12/08/24 History vitamin B complex (B 1 tab PO DAILY 05/07/18 12/08/24 H istory Complex-Vitamin B12 tablet) simvastatin 20 mg tablet 20 mg PO DAILY 05/25/18 12/08/24 H istory aspirin 81 mg tablet,delayed 81 mg PO DAILY health maintenance 06/03/18 12/08/24 History release duloxetine 30 mg capsule,delayed 30 mg PO QODAY #90 caps 06/24/19 0 12/08/24 History release omeprazole 20 mg capsule,delayed 20 mg PO DAILY PRN gerd 12/20/19 0 12/08/24 History release cetirizine 10 mg tablet (Zyrtec) 10 mg PO DAILY allergies 07/24/20 12/08/24 History melatonin 5 mg tablet 5 mg PO HS PRN 07/24/22 12/08/24 H istory krxlrlm-xboisppkv-hagxo in D2 500 3 tab PO DAILY PRN supplement 09/0812/08/24 History mg-50 mg-100 unit chewable tablet potassium chloride 8 mEq 8 meq PO DAILY PRN 09/23/23 History capsule,extended release propranolol 60 mg tablet 60 mg PO .PRN Headache 09/23/23 History losartan 100 1 tab PO DAILY 01/08/24 12/08/24 H istory mg-hydrochlorothiazide 25 mg tablet (Hyzaar) pioglitazone 15 mg tablet (Actos) 15 mg PO DAILY 01/08/24 12/08/24 History cholecalciferol (vitamin D3) 1,250 1,250 mcg PO Q2W PRN 03/23/24 History mcg (50,000 unit) capsule clobetasol 0.05 % topical ointment 1 applic topical .COMPLEX #15 gr ams 09/06/24 12/08/24 Rx Is last menstrual period known: No Post menopausal: Yes Patient : No : No PFSH PFSH Medical History Wears glasses Depression Arthritis Restless legs Gastric reflux Non-smoker Leg cramps History of edema History of atrial fibrillation History of echocardiogram Cardiology follow-up encounter Hypertension Ectopic cardiac beats Injury of head and neck Post-menopausal High cholesterol History of stress test Anxiety CPAP (continuous positive airway pressure) dependence Sleep apnea Atrial fibrillation Abnormal ultrasound of breast Abnormal mammogram of right breast Pure hypercholesterolemia Essential (primary) hypertension Abnormal stress test Chest pain Osteoarthritis ABDULAZIZ (obstructive sleep apnea) Migraines Acid reflux IBS (irritable bowel syndrome) Fibromyalgia Surgical History History of ankle surgery H/O cardiac catheterization History of breast biopsy Hx of colonoscopy ( 07/2022) History of foot surgery Family History Father Heart disease Sister Myocardial infarction Mother Arrhythmia Heart disease Diabetes CHF (congestive heart failure) Thyroid disorder Diverticulitis Brother Arrhythmia Myocardial infarction Brother Arrhythmia ASVD (arteriosclerotic vascular disease) Heart disease Arrhythmogenic right ventricular cardiomyopathy Sister Sarcoidosis Daughter Thyroid disorder Uncle Colon cancer Social History Smoking Status: Never smoker second hand exposure: No alcohol intake: never substance use type: does not use caffeine: Yes Type: carbonated beverages and coffee Number of servings: 2 what type of physical activity do you participate in: none seatbelt use: always do you feel safe at home: Yes additional social history: -Marcell History 3 Elective abortions Hx Para 3 Spontaneous abortions Hx # Term Pregnancies Ectopic pregnancies Hx # Pregnancies Multiple births # of living children 3 Past Pregnancies Del. Date Name GA/Weeks Outcome Route Bth Weight Infant Gen Labor Lgth Anesthesia Del Locatn Provider FOB Unknown Devon Unknown John Unknown Chela HPI PMB Details: JOHANNA DOVE is a 64 year old who presents for postmenopausal bleeding. States in November she woke up with 2 small bright red spots of (more content not included)... Normal [facility] Surgery Specimen Level Jennifer 12-08-2024 Surgery Specimen Level IV Patient Age/Sex Location Account Attending Physician JOHANNA DOVE 64/F [facility] [id number] PERCY King Specimen: [id number] Received: 12/09/24 Status: NATHAN Flores Num: [id number] Spec Type: NEGAR BX/C Jose David Dr: PERCY King HEADER OPERATION: Endometrial biopsy PRE-OP DIAGNOSIS: Post menopausal bleeding TISSUE SUBMITTED: A- Endometrial lining MICROSCOPIC DIAGNOSIS A. Uterus, Endometrial Lining, Biopsy: - Superficial strips of benign endocervical and endometrial epithelium, - Few squamous epithelial cells. MICROSCOPIC DESCRIPTION Slides are reviewed. GROSS DESCRIPTION A. Received in formalin in a container labeled with the patient's name, date of , and EMB are multiple tiny and wispy fragments of dawson-lorenzo possible soft tissue admixed with mucus measuring approximately 1 x 1 x 0.1 cm. The specimen is submitted entirely for cellblock preparation in A1. [facility] 12-09-2024 CPT:84847 Patient Age/Sex Location Account Attending Physician [facility] DOVE 64[facility] [id number] PERCY King Signed (signature on file) Dr. Ania Penaloza MD 12/15/24 0981 Normal [facility] Comment on above: Performed By: #### P SUIV #### [facility] [address] [place], [address] Cardiology Visit Reporton Cardiology Visit Report [facility] [address] [place] [address] OFFICE VISIT Date of Service: 03/23/24 MR#: [id number] Acct: [id number] Name: JOHANNA DOVE Rep #: [id number] : 1960 Provider: PERCY solorzano Age/Sex: 63/F Location: [facility] [place] Status: Signed [facility] HPI History of Present Illness Details: This is a 63-year-old white female who presents today for outpatient cardiovascular follow-up visit. She has a history of underlying cardiac ectopy, hyperlipidemia, and hypertension. She also has an extensive cardiac family history. She denies chest, arm, jaw, or neck discomfort. She denies palpitations. She denies bilateral lower extremity edema but states occasional swelling in her toes. She denies claudication. She denies shortness of breath with activity, shortness of breath at rest, orthopnea, or PND. She denies chronic cough. She denies significant, sudden weight gain. She states rare episodes of lightheadedness. She denies dizziness, near-syncope, or syncope. She denies blood in urine, blood in stool, or epistaxis. He denies fever with chills. She denies myalgia. She denies fatigue. Her exercise level has remained stable. Intake Vital Signs 09/23/23 13:55 01/08/24 14:36 03/23/24 13:22 Height 5 ft 8 in 5 ft 8 in 5 ft 8 in Weight: 222 lb 6 oz 222 lb BMI 33.7 33.7 BP 147/73 H 111/62 Blood Pressure Location Lt brachial Position Sitting Respiration 16 Pulse 74 Pulse Source NIBP Intake Visit Reasons: 6 M FU Establishment Guide Required: No Accompanied by: None Is patient in pain?: No Allergies No Known Allergies Allergy (Verified 03/23/24 13:28) Medications ???Medication ???Instructions ???Recorded ???Confirmed ???Type temazepam 15 mg capsule 15 mg PO QHS PRN Insomnia 11/11/17 03/23/24 History vitamin B complex (B 1 tab PO DAILY 05/07/18 03/23/24 History Complex-Vitamin B12 tablet) simvastatin 20 mg tablet 20 mg PO DAILY 05/25/18 03/23/24 History aspirin 81 mg tablet,delayed 81 mg PO DAILY health maintenance 06/03/18 03/23/24 History release duloxetine 30 mg capsule,delayed 30 mg PO QODAY #90 caps 06/24/19 03/23/24 History release omeprazole 20 mg capsule,delayed 20 mg PO DAILY PRN gerd 12/20/19 03/23/24 History release cetirizine 10 mg tablet (Zyrtec) 10 mg PO DAILY allergies 07/24/20 03/23/24 History melatonin 5 mg tablet 5 mg PO HS PRN 07/24/22 03/23/24 History hzlpxub-hvbqmulng-fbhwx in D2 500 3 tab PO DAILY PRN supplement 09/23/23 03/23/24 History mg-50 mg-100 unit chewable tablet potassium chloride 8 mEq 8 meq PO DAILY PRN 09/23/23 03/23/24 History capsule,extended release propranolol 60 mg tablet 60 mg PO .PRN Headache 09/23/23 03/23/24 History losartan 100 1 tab PO DAILY 01/08/24 03/23/24 History mg-hydrochlorothiazide 25 mg tablet (Hyzaar) pioglitazone 15 mg tablet (Actos) 15 mg PO DAILY 01/08/24 03/23/24 History cholecalciferol (vitamin D3) 1,250 1,250 mcg PO Q2W PRN 03/23/24 03/23/24 History mcg (50,000 unit) capsule Ejection fraction %: 60 Have you fallen in the past year?: No PFSH Medical History (Reviewed 03/23/24 @ 13:45 by Osorio Gregory [employer], [employer]-C) Wears glasses Depression Arthritis Restless legs Gastric reflux Non-smoker Leg cramps History of edema History of atrial fibrillation History of echocardiogram Cardiology follow-up encounter Hypertension Ectopic cardiac beats Injury of head and neck Post-menopausal High cholesterol History of stress test Anxiety CPAP (continuous positive airway pressure) dependence Sleep apnea Atrial fibrillation Abnormal ultrasound of breast Abnormal mammogram of right breast Pure hypercholesterolemia Essential (primary) hypertension Abnormal stress test Chest pain Osteoarthritis ABDULAZIZ (obstructive sleep apnea) Migraines Acid reflux IBS (irritable bowel syndrome) Fibromyalgia Surgical History (Reviewed 03/23/24 @ 13:45 by Osorio Gregory OPERATOR [employer], OPERATOR [employer] CONCENTRATION-C) History of ankle surgery H/O cardiac catheterization History of breast biopsy Hx of colonoscopy ( 07/2022) History of foot surgery Family History (Updated 03/23/24 @ 13:52 by Osorio Gregory OPERATOR [employer], OPERATOR [employer]CENTRATION-C) Father Heart disease Sister Myocardial infarction Mother Arrhythmia Heart disease Diabetes CHF (congestive heart failure) Thyroid disorder Diverticulitis Brother Arrhythmia Myocardial infarction Brother Arrhythmia ASVD (arteriosclerotic vascular disease) Heart disease Arrhythmogenic right ventricular cardiomyopathy Sister Sarcoidosis Daughter Thyroid disorder Uncle Colon cancer Social History (Reviewed 03/23/24 @ 13:45 by Osorio Gregory OPERATOR [employer], OPERATOR [employer]CENTRATION-C) Smoking Status: Never smoker second hand exposure: No alcohol intake: never substance use type: does not use caffeine: Yes Type: carbonated be (more content not included)... Normal [facility] Foot min 3 Viewson 4 Foot min 3 Views [facility] [address] [place] [address] Foot min 3 Views MR#: [id number] Acct: [id number] Name: JOHANNA DOVE Rep #: [id number] : 1960 F 63 From: Shane Niño MD PCP: Dr. Margarita Meza, DO Status: DEP AMB Study: Foot min 3 Views Date of Exam: 03/23/24 Exam# [id number] Ordering Dr: Rod Garcia DPAnjali [id number] STUDY: X-RAY - RIGHT FOOT CLINICAL: Female, 63 years old. FOOT PAIN TECHNIQUE: 3 view(s) of the foot. COMPARISON: 04/14/2019 FINDINGS: Normal talus, calcaneus, and tarsal bones. Small posterior calcaneal enthesophyte. Normal visualized subtalar, talonavicular, calcaneocuboid, tarsal and tarsometatarsal articulations. Normal metatarsi. There is degenerative arthrosis of the metatarsophalangeal joint of the hallux with a hallux valgus deformity. Normal tibial and fibular sesamoid bones. Normal interphalangeal joint of the great toe. Normal phalanges of the great toe. Normal second through fifth metatarsophalangeal joints. Normal interphalangeal joints and phalanges of the lesser toes. The soft tissue structures are unremarkable. RAD/Foot min 3 Views IMPRESSION: Moderate hallux valgus deformity. Electronically Signed: Shane Niño MD at 8:27 EDT , CC: CAREN Garcia; Dr. Margarita Meza DO Director Operations: Signed Normal [facility] Foot min 3 Views [facility] [address] [place] [address] Foot min 3 Views MR#: [id number] Acct: [id number] Name: JOHANNA DOVE Rep #: [id number] : 1960 F 63 From: Shane Niño MD PCP: Dr. Margarita Meza DO Status: DEP AMB Study: Foot min 3 Views Date of Exam: 03/23/24 Exam# [id number] Ordering Dr: Rod Garcia DPAnjali [id number] STUDY: X-RAY - LEFT FOOT CLINICAL: Female, 63 years old. FOOT PAIN TECHNIQUE: 3 view(s) of the foot. COMPARISON: None. FINDINGS: Normal talus, calcaneus, and tarsal bones. Small posterior calcaneal osteophyte. Normal visualized subtalar, talonavicular, calcaneocuboid, tarsal and tarsometatarsal articulations. Normal metatarsi. Hardware in the head of the second third metatarsal bones. Healed bunionectomy and first metatarsophalangeal joint arthrodesis with dorsal plate and screws. Normal tibial and fibular sesamoid bones. Normal interphalangeal joint of the great toe. Normal phalanges of the great toe. Normal second through fifth metatarsophalangeal joints. Ankylosis of the second third and fourth proximal interphalangeal joints. The soft tissue structures are unremarkable. RAD/Foot min 3 Views IMPRESSION: Postsurgical changes. Electronically Signed: Shane Niño MD at 8:29 EDT , CC: DPAnjali Garcia; Dr. Margarita Meza DO Director Operations: Signed Normal [facility] Vitamin D,25 Hydroxyon 03-08 Vitamin D 25-OH 63.5 ng/mL Normal [facility] Comment on above: Result Comment: Emelyn min D 25(OH) Status Range Deficiency <20 ng/mL (50nmol/L) Insufficiency 20 - 30 ng/mL (50 - 75 nmol/L) Sufficiency 30 - 100 ng/mL (75 - 250 nmol/L) Toxicity >100 ng/mL (>250 nmol/L) Performed By: #### L 501.9520, L500.4100, L501.91515, L100.0100, L506.1000, L500.4050, L501.9985, L506.0400 ####[facility] [address] [place], [address] CBC W/Diff, Automatedon - Absolute Lymph 2.08 X10 3/uL Normal 0.83-4.51 [facility] Comment on above: Performed By: #### L 501.9520, L500.4100, L501.67306, L100.0100, L506.1000, L500.4050, L501.9985, L506.0400 #### [facility] [address] [place], [address] Absolute Neut 1.8 X10 3/uL Low 2.0-7.7 [facility] Comment on above: Performed By: #### L 501.9520, L500.4100, L501.51257, L100.0100, L506.1000, L500.4050, L501.9985, L506.0400 #### [facility] [address] [place], [address] Basophils/100 WBC (Bld) 0.9 % Normal 0-1 [facility] Comment on above: Performed By: #### L 501.9520, L500.4100, L501.46301, L100.0100, L506.1000, L500.4050, L501.9985, L506.0400 #### [facility] [address] [place], [address] Eosinophils/100 WBC (Bld) 5.0 % Normal 0-5 [facility] Comment on above: Performed By: #### L 501.9520, L500.4100, L501.77168, L100.0100, L506.1000, L500.4050, L501.9985, L506.0400 #### [facility] [address] [place], [address] Erythrocyte distribution width (RBC) [Ratio] 13.2 % Normal 11.6-14.6 [facility] Comment on above: Performed By: #### L 501.9520, L500.4100, L501.98271, L100.0100, L506.1000, L500.4050, L501.9985, L506.0400 #### [facility] [address] [place], [address] Hematocrit (Bld) [Volume fraction] 41.2 % Normal 37-47 [facility] Comment on above: Performed By: #### L 501.9520, L500.4100, L501.22633, L100.0100, L506.1000, L500.4050, L501.9985, L506.0400 #### [facility] [address] [place], [address] Hemoglobin (Bld) [Mass/Vol] 13.4 g/dL Normal 12.0-15.0 [facility] Comment on above: Performed By: #### L 501.9520, L500.4100, L501.78655, L100.0100, L506.1000, L500.4050, L501.9985, L506.0400 #### [facility] [address] [place], [address] IG% 0.000 Normal 0.0-0.9 [facility] Comment on above: Result Comment: IG% - Immature Granulocytes (promyelocytes, myelocytes and metamyelocytes) > 1% indicates that a LEFT SHIFT is Present. Performed By: #### L 501.9520, L500.4100, L501.94161, L100.0100, L506.1000, L500.4050, L501.9985, L506.0400 #### [facility] [address] [place], [address] Lymphocytes/100 WBC (Bld) 47.1 % High 19-41 [facility] Comment on above: Performed By: #### L 501.9520, L500.4100, L501.16704, L100.0100, L506.1000, L500.4050, L501.9985, L506.0400 #### [facility] [address] [place], [address] MCH (RBC) [Entitic mass] 30.7 pg Normal 27.0-32.0 [facility] Comment on above: Performed By: #### L 501.9520, L500.4100, L501.91455, L100.0100, L506.1000, L500.4050, L501.9985, L506.0400 #### [facility] [address] [place], [address] MCHC (RBC) [Mass/Vol] 32.5 g/dL Normal 32-36 [facility] Comment on above: Performed By: #### L 501.9520, L500.4100, L501.34729, L100.0100, L506.1000, L500.4050, L501.9985, L506.0400 #### [facility] [address] [place], [address] MCV (RBC) [Entitic vol] 94.5 fL Normal 81-99 [facility] Comment on above: Performed By: #### L 501.9520, L500.4100, L501.45987, L100.0100, L506.1000, L500.4050, L501.9985, L506.0400 #### [facility] [address] [place], [address] Monocytes/100 WBC (Bld) 6.3 % Normal 0-10 [facility] Comment on above: Performed By: #### L 501.9520, L500.4100, L501.64323, L100.0100, L506.1000, L500.4050, L501.9985, L506.0400 #### [facility] [address] [place], [address] Neutrophils/100 WBC (Bld) 40.7 % Low 47-70 [facility] Comment on above: Performed By: #### L 501.9520, L500.4100, L501.26829, L100.0100, L506.1000, L500.4050, L501.9985, L506.0400 #### [facility] [address] [place], [address] Nucleated RBC (Bld) [#/Vol] 0 10*3/uL Normal 0-5 [facility] Comment on above: Performed By: #### L 501.9520, L500.4100, L501.50557, L100.0100, L506.1000, L500.4050, L501.9985, L506.0400 #### [facility] [address] [place], [address] Platelet mean volume (Bld) [Entitic vol] 10.5 fL Normal 6.2-12.0 [facility] Comment on above: Performed By: #### L 501.9520, L500.4100, L501.65713, L100.0100, L506.1000, L500.4050, L501.9985, L506.0400 #### [facility] [address] [place], [address] Platelets (Bld) [#/Vol] 256 10*3/uL Normal 150-450 [facility] Comment on above: Performed By: #### L 501.9520, L500.4100, L501.61381, L100.0100, L506.1000, L500.4050, L501.9985, L506.0400 #### [facility] [address] [place], [address] RBC (Bld) [#/Vol] 4.36 10*6/uL Normal 4.2-5.4 [facility] Comment on above: Performed By: #### L 501.9520, L500.4100, L501.20607, L100.0100, L506.1000, L500.4050, L501.9985, L506.0400 #### [facility] [address] [place], [address] RDW SD 45.9 fl High 35.1-43.9 [facility] Comment on above: Performed By: #### L 501.9520, L500.4100, L501.37771, L100.0100, L506.1000, L500.4050, L501.9985, L506.0400 #### [facility] [address] [place], [address] WBC (Bld) [#/Vol] 4.4 10*3/uL Normal 4.4-11.0 [facility] Comment on above: Performed By: #### L 501.9520, L500.4100, L501.71903, L100.0100, L506.1000, L500.4050, L501.9985, L506.0400 #### [facility] [address] [place], [address] Comprehensive Metabolic Prof [facility] 03-06-2024 Albumin [Mass/Vol] 3.7 g/dL Normal 3.2-5.0 [facility] Comment on above: Performed By: #### L 501.9520, L500.4100, L501.94480, L100.0100, L506.1000, L500.4050, L501.9985, L506.0400 #### [facility] [address] [place], [address] Albumin/Globulin [Mass ratio] 1.0 {ratio} Normal 0.9-2.4 [facility] Comment on above: Performed By: #### L 501.9520, L500.4100, L501.09475, L100.0100, L506.1000, L500.4050, L501.9985, L506.0400 #### [facility] [address] [place], [address] ALK P 85 U/L Normal 45-117 [facility] Comment on above: Performed By: #### L 501.9520, L500.4100, L501.03905, L100.0100, L506.1000, L500.4050, L501.9985, L506.0400 #### [facility] [address] [place], [address] ALT [Catalytic activity/Vol] 52 U/L Normal 13-56 [facility] Comment on above: Performed By: #### L 501.9520, L500.4100, L501.14214, L100.0100, L506.1000, L500.4050, L501.9985, L506.0400 #### [facility] [address] [place], [address] AST [Catalytic activity/Vol] 34 U/L Normal 15-37 [facility] Comment on above: Performed By: #### L 501.9520, L500.4100, L501.63821, L100.0100, L506.1000, L500.4050, L501.9985, L506.0400 #### [facility] [address] [place], [address] Bilirubin [Mass/Vol] 0.60 mg/dL Normal 0.20-1.00 [facility] Comment on above: Result Comment: For patients on eltrombopag therapy, use of Dimension [place] TBIL is not recommended. Performed By: #### L 501.9520, L500.4100, L501.64442, L100.0100, L506.1000, L500.4050, L501.9985, L506.0400 #### [facility] [address] [place], [address] BUN/CRE 17.5 RATIO Normal 10-20 [facility] Comment on above: Performed By: #### L 501.9520, L500.4100, L501.00006, L100.0100, L506.1000, L500.4050, L501.9985, L506.0400 #### [facility] [address] [place], [address] CA,Total 9.2 mg/dL Normal 8.5-10.1 [facility] Comment on above: Performed By: #### L 501.9520, L500.4100, L501.24086, L100.0100, L506.1000, L500.4050, L501.9985, L506.0400 #### [facility] [address] [place], [address] Chloride [Moles/Vol] 105 mmol/L Normal 98-107 [facility] Comment on above: Performed By: #### L 501.9520, L500.4100, L501.91228, L100.0100, L506.1000, L500.4050, L501.9985, L506.0400 #### [facility] [address] [place], [address] CO2 [Moles/Vol] 28.0 mmol/L Normal 21.0-32.0 [facility] Comment on above: Performed By: #### L 501.9520, L500.4100, L501.78341, L100.0100, L506.1000, L500.4050, L501.9985, L506.0400 #### [facility] [address] [place], [address] Creatinine [Mass/Vol] 0.97 mg/dL Normal 0.55-1.02 [facility] Comment on above: Result Comment: The validity of the calculated GFR GFRAA in patients over 70 years has not been determined. Clinical correlation is essential. Performed By: #### L 501.9520, L500.4100, L501.06523, L100.0100, L506.1000, L500.4050, L501.9985, L506.0400 #### [facility] [address] [place], [address] EST GFR - AA 74 mL/min Normal >60 [facility] Comment on above: Result Comment: Afri can [place] GFR Calc Performed By: #### L 501.9520, L500.4100, L501.51587, L100.0100, L506.1000, L500.4050, L501.9985, L506.0400 #### [facility] [address] [place], [address] GAP 5 Normal 5-15 [facility] Comment on above: Performed By: #### L 501.9520, L500.4100, L501.10122, L100.0100, L506.1000, L500.4050, L501.9985, L506.0400 #### [facility] [address] [place], [address] GFR/1.73 sq M.predicted among non-blacks MDRD (S/P/Bld) [Vol rate/Area] 61 mL/min/{1.73_m2} Normal >60 [facility] Comment on above: Result Comment: Non- GFR Calc Performed By: #### L 501.9520, L500.4100, L501.88647, L100.0100, L506.1000, L500.4050, L501.9985, L506.0400 #### [facility] [address] [place], [address] Globulin (S) [Mass/Vol] 3.8 g/dL Normal 2.2-4.2 [facility] Comment on above: Performed By: #### L 501.9520, L500.4100, L501.19407, L100.0100, L506.1000, L500.4050, L501.9985, L506.0400 #### [facility] [address] [place], [address] Glucose [Mass/Vol] 98 mg/dL Normal 74-106 [facility] Comment on above: Performed By: #### L 501.9520, L500.4100, L501.28046, L100.0100, L506.1000, L500.4050, L501.9985, L506.0400 #### [facility] [address] [place], [address] Potassium [Moles/Vol] 3.9 mmol/L Normal 3.5-5.1 [facility] Comment on above: Performed By: #### L 501.9520, L500.4100, L501.83654, L100.0100, L506.1000, L500.4050, L501.9985, L506.0400 #### [facility] [address] [place], [address] Sodium [Moles/Vol] 138 mmol/L Normal 136-145 [facility] Comment on above: Performed By: #### L 501.9520, L500.4100, L501.15751, L100.0100, L506.1000, L500.4050, L501.9985, L506.0400 #### [facility] [address] [place], [address] T PROT 7.5 g/dL Normal 6.4-8.2 [facility] Comment on above: Performed By: #### L 501.9520, L500.4100, L501.74022, L100.0100, L506.1000, L500.4050, L501.9985, L506.0400 #### [facility] [address] [place], [address] Urea nitrogen [Mass/Vol] 17 mg/dL Normal 7-18 [facility] Comment on above: Performed By: #### L 501.9520, L500.4100, L501.42919, L100.0100, L506.1000, L500.4050, L501.9985, L506.0400 #### [facility] [address] [place], [address] Free T3on 03-06-2024 Free T3 [Mass/Vol] 2.3 pg/mL Normal 2.18-3.98 [facility] Comment on above: Performed By: #### L 501.9520, L500.4100, L501.75194, L100.0100, L506.1000, L500.4050, L501.9985, L506.0400 #### [facility] [address] [place], [place], [id number] (299) Hemoglobin A1con 03-06-2024 HbA1c (Bld) [Mass fraction] 5.7 % High 3.8-5.6 [facility] Comment on above: Result Comment: Norm al < 5.7 % Prediabetic 5.7 - 6.4 % Diabetic >or= 6.5 % Please note range changes. Performed By: #### L 501.9520, L500.4100, L501.97598, L100.0100, L506.1000, L500.4050, L501.9985, L506.0400 #### [facility] [address] [place], [address] Lipid Profileon 03-06-2024 Cholesterol [Mass/Vol] 157 mg/dL Normal 200 [facility] Comment on above: Result Comment: <200 mg/dL Desirable 200-240 mg/dL Borderline >240 mg/dL High Risk Performed By: #### L 501.9520, L500.4100, L501.74979, L100.0100, L506.1000, L500.4050, L501.9985, L506.0400 #### [facility] [address] [place], [place], [id number] Cholesterol in HDL [Mass/Vol] 55 mg/dL Normal [facility] Comment on above: Result Comment: The drugs N-Acetylcysteine and Metamizole may falsely depress this assay. Reference Range HDL <40 mg/dL Low HDL Cholesterol HDL >or= 60 mg/dL High HDL Cholesterol Performed By: #### L 501.9520, L500.4100, L501.82344, L100.0100, L506.1000, L500.4050, L501.9985, L506.0400 #### [facility] [address] [place], [address] Cholesterol in LDL [Mass/Vol] 86 mg/dL Normal 0-130 [facility] Comment on above: Performed By: #### L 501.9520, L500.4100, L501.83304, L100.0100, L506.1000, L500.4050, L501.9985, L506.0400 #### [facility] [address] [place], [place], [id number] (308) Cholesterol in VLDL [Mass/Vol] 16 mg/dL Normal 5-40 [facility] Comment on above: Performed By: #### L 501.9520, L500.4100, L501.79743, L100.0100, L506.1000, L500.4050, L501.9985, L506.0400 #### [facility] [address] [place], [address] Triglyceride [Mass/Vol] 79 mg/dL Normal [facility] Comment on above: Result Comment: The drugs N-Acetylcysteine and Metamizole may falsely depress this assay. Serum Triglycerides Reference Interval Normal <150 mg/dL Borderline high 150 - 199 mg/dL High 200 - 499 mg/dL Very High > or = 500 mg/dL Performed By: #### L 501.9520, L500.4100, L501.99252, L100.0100, L506.1000, L500.4050, L501.9985, L506.0400 #### [facility] [address] [place], [address] T4 Free Directon 03-06-2024 T4 FREE DIRECT 1.00 ng/dL Normal 0.76-1.46 [facility] Comment on above: Performed By: #### L 501.9520, L500.4100, L501.86629, L100.0100, L506.1000, L500.4050, L501.9985, L506.0400 #### [facility] [address] [place], [place], [address] Thyroid Stim Hormone (TSH)on 03-06-2024 TSH 1.12 uIU/mL Normal 0.358-3.74 [facility] Comment on above: Performed By: #### L 501.9520, L500.4100, L501.39867, L100.0100, L506.1000, L500.4050, L501.9985, L506.0400 #### [facility] [address] [place], [place], [id number] Basophil percentageOrdered B y: Margarita Meza on 11-29-2023 Bilirubin [Mass/Vol] 0.40 mg/dL 0.20-1.00 [facility] Comment on above: For patients on eltr ombopag therapy, use of Dimension [place] TBIL is not recommended. Chloride [Moles/Vol] 109 mmol/L 98-107 [facility] Glucose [Mass/Vol] 122 mg/dL 74-106 [facility] Comment on above: Fasting Glucose resu lt from 100 to 125 mg/dL suggests IMPAIRED HOMEOSTASIS per A.D.A. criteria. Potassium [Moles/Vol] 4.2 mmol/L 3.5-5.1 [facility] Protein [Mass/Vol] 7.1 g/dL 6.4-8.2 [facility] Sodium [Moles/Vol] 141 mmol/L 136-145 [facility] Laboratory - Chemistry and C hemistry - challengeOrdered By: Margarita Meza on 11-29-2023 Albumin/Globulin [Mass ratio] 1.0 {ratio} 0.9-2.4 [facility] ALP [Catalytic activity/Vol] 86 U/L 45-117 [facility] ALT [Catalytic activity/Vol] 77 U/L 13-56 [facility] CO2 [Moles/Vol] 27.0 mmol/L 21.0-32.0 [facility] Globulin (S) [Mass/Vol] 3.5 g/dL 2.2-4.2 [facility] Urea nitrogen/Creatinine [Mass ratio] 14.9 mg/mg 10-20 [facility] No Panel InformationOrdered By: Margarita Meza on 11-29-2023 Estimated GFR (MDRD) Amer 84 mL/min >60 [facility] Comment on above: GFR Calc Estimated GFR (MDRD) Non-Af Amer 69 mL/min >60 [facility] Comment on above: Non- GFR Calc Serum or plasma calcium michele urement (mass/volume)Ordered By: Margarita Meza on 11-29-2023 Calcium [Mass/Vol] 9.0 mg/dL 8.5-10.1 [facility] Serum or plasma creatinine m easurement (mass/volume)Ordered By: Margarita Meza on 11-29-2023 Creatinine [Mass/Vol] 0.88 mg/dL 0.55-1.02 [facility] Comment on above: The validity of the calculated GFR & GFRAA in patients over 70 years has not been determined. Clinical correlation is essential. Serum or plasma urea nitroge n measurement (mass/volume)Ordered By: Margarita Meza on 11-29-2023 Urea nitrogen [Mass/Vol] 13 mg/dL 7-18 [facility] Thin prep Papanicolaou smear with manual screeningOrdered By: Margarita Meza on 11-29-2023 Thin prep Papanicolaou smear with manual screening 3.6 g/dL 3.2-5.0 [facility] Thin prep Papanicolaou smear with manual screening 74 U/L 15-37 [facility] Thin prep Papanicolaou smear with manual screening 5 5-15 [facility] Whole blood hemoglobin A1c/t otal hemoglobin ratio (mass fraction)Ordered By: Margarita Meza on 11-29-2023 HbA1c (Bld) [Mass fraction] 6.5 % 3.8-5.6 [facility] Comment on above: Normal < 5.7 % Predi abetic 5.7 - 6.4 % Diabetic >or= 6.5 % Please note range changes. Absolute lymphocyte countOrd ered By: Margarita Meza on 10-06-2023 Lymphocytes Auto (Unsp spec) [#/Vol] 2.60 10*3/uL 0.83-4.51 [facility] Automated lymphocyte count a s percentage of total leukocytesOrdered By: Margarita Meza on 10-06-2023 Lymphocytes/100 WBC Auto (Unsp spec) 39.6 % 19-41 [facility] Basophil percentageOrdered B y: Margarita Meza on 10-06-2023 Basophils/100 WBC (Bld) 0.8 % 0-1 [facility] Bilirubin [Mass/Vol] 0.50 mg/dL 0.20-1.00 [facility] Comment on above: For patients on eltr ombopag therapy, use of Dimension [place] TBIL is not recommended. Chloride [Moles/Vol] 108 mmol/L 98-107 [facility] Cholesterol [Mass/Vol] 166 mg/dL <200 [facility] Comment on above: <200 mg/dL Desirable 200-240 mg/dL Borderline >240 mg/dL High Risk Eosinophils/100 WBC (Bld) 4.4 % 0-5 [facility] Glucose [Mass/Vol] 121 mg/dL 74-106 [facility] Comment on above: Fasting Glucose resu lt from 100 to 125 mg/dL suggests IMPAIRED HOMEOSTASIS per A.D.A. criteria. Hemoglobin (Bld) [Mass/Vol] 13.2 g/dL 12.0-15.0 [facility] Monocytes/100 WBC (Bld) 6.6 % 0-10 [facility] Neutrophils (Bld) [#/Vol] 3.2 10*3/uL 2.0-7.7 [facility] Neutrophils/100 WBC (Bld) 48.3 % 47-70 [facility] Potassium [Moles/Vol] 3.6 mmol/L 3.5-5.1 [facility] Protein [Mass/Vol] 7.2 g/dL 6.4-8.2 [facility] Sodium [Moles/Vol] 140 mmol/L 136-145 [facility] Triglyceride [Mass/Vol] 128 mg/dL <199 [facility] Comment on above: The drugs N-Acetylcy steine and Metamizole may falsely depress this assay.Serum Triglycerides Reference Interval Normal <150 mg/dL Borderline high 150 - 199 mg/dL High 200 - 499 mg/dL Very High > or = 500 mg/dL WBC (Bld) [#/Vol] 6.6 10*3/uL 4.4-11.0 [facility] Determination of erythrocyte mean corpuscular volume (MCV)Ordered By: Margarita Meza on 10-06-2023 MCV (RBC) [Entitic vol] 91.3 fL 81-99 [facility] Erythrocyte distribution wid th ratioOrdered By: Margarita Meza on 10-06-2023 Erythrocyte distribution width (RBC) [Ratio] 13.2 % 11.6-14.6 [facility] Erythrocyte distribution wid th standard deviationOrdered By: Margarita Meza on 10-06-2023 Erythrocyte distribution width (RBC) [Entitic vol] 44.7 fL 35.1-43.9 [facility] Hematocrit Auto (Bld) [Volum e fraction]Ordered By: Margarita Meza on 10-06-2023 Hematocrit (Bld) [Volume fraction] 39.8 % 37-47 [facility] Immature granulocytes/100 WB C Auto (Bld)Ordered By: Margarita Meza on 10-06-2023 Immature granulocytes/100 WBC (Bld) 0.300 % 0.0-0.9 [facility] Comment on above: IG% - Immature Granu locytes (promyelocytes, myelocytes and metamyelocytes) > 1% indicates that a LEFT SHIFT is Present. Laboratory - Chemistry and C hemistry - challengeOrdered By: Margarita Meza on 10-06-2023 Albumin/Globulin [Mass ratio] 0.9 {ratio} 0.9-2.4 [facility] ALP [Catalytic activity/Vol] 83 U/L 45-117 [facility] ALT [Catalytic activity/Vol] 62 U/L 13-56 [facility] Cholesterol in HDL (Body fld) [Mass/Vol] 53 mg/dL >40 [facility] Comment on above: The drugs N-Acetylcy steine and Metamizole may falsely depress this assay. Reference Range HDL <40 mg/dL Low HDL Cholesterol HDL >or= 60 mg/dL High HDL Cholesterol Cholesterol in LDL (Body fld) [Moles/Vol] 87 mg/dL 0-130 [facility] Cholesterol in VLDL Calc [Moles/Vol] 26 mg/dL 5-40 [facility] CO2 [Moles/Vol] 27.0 mmol/L 21.0-32.0 [facility] Globulin (S) [Mass/Vol] 3.7 g/dL 2.2-4.2 [facility] Urea nitrogen/Creatinine [Mass ratio] 18.7 mg/mg 10-20 [facility] Laboratory - Hematology and Cell countsOrdered By: Margarita Meza on 10-06-2023 MCH (RBC) [Entitic mass] 30.3 pg 27.0-32.0 [facility] MCHC (RBC) [Mass/Vol] 33.2 g/dL 32-36 [facility] Nucleated RBC/100 WBC (Bld) [Ratio] 0 % 0-5 [facility] Platelets (Bld) [#/Vol] 246 10*3/uL 150-450 [facility] No Panel InformationOrdered By: Margarita Meza on 10-06-2023 Estimated GFR (MDRD) Amer 80 mL/min >60 [facility] Comment on above: GFR Calc Estimated GFR (MDRD) Non-Af Amer 67 mL/min >60 [facility] Comment on above: Non- GFR Calc Free Triiodothyronine (T3) pg/dL 2.9 pg/mL 2.18-3.98 [facility] Vitamin D 25-Hydroxy 82.2 ng/mL [facility] Comment on above: Vitamin D 25(OH) Sta tus Range Deficiency <20 ng/mL (50nmol/L) Insufficiency 20 - 30 ng/mL (50 - 75 nmol/L) Sufficiency 30 - 100 ng/mL (75 - 250 nmol/L) Toxicity >100 ng/mL (>250 nmol/L) Platelet mean volume Demian-Ec ker (Bld) [Entitic vol]Ordered By: Margarita Meza on 10-06-2023 Platelet mean volume (Bld) [Entitic vol] 10.5 fL 6.2-12.0 [facility] RBC Auto (Bld) [#/Vol]Ordere d By: Margarita Meza on 10-06-2023 RBC (Bld) [#/Vol] 4.36 10*6/uL 4.2-5.4 [facility] Serum or plasma calcium michele urement (mass/volume)Ordered By: Margarita Meza on 10-06-2023 Calcium [Mass/Vol] 9.1 mg/dL 8.5-10.1 [facility] Serum or plasma creatinine m easurement (mass/volume)Ordered By: Margarita Meza on 10-06-2023 Creatinine [Mass/Vol] 0.91 mg/dL 0.55-1.02 [facility] Comment on above: The validity of the calculated GFR & GFRAA in patients over 70 years has not been determined. Clinical correlation is essential. Serum or plasma thyroid stim ulating hormone (TSH) measurement (units/volume)Ordered By: Margarita Meza on 10-06-2023 TSH Qn 2.46 uIU/mL 0.358-3.74 [facility] Serum or plasma urea nitroge n measurement (mass/volume)Ordered By: Margarita Meza on 10-06-2023 Urea nitrogen [Mass/Vol] 17 mg/dL 7-18 [facility] Thin prep Papanicolaou smear with manual screeningOrdered By: Margarita Meza on 10-06-2023 Thin prep Papanicolaou smear with manual screening 3.5 g/dL 3.2-5.0 [facility] Thin prep Papanicolaou smear with manual screening 47 U/L 15-37 [facility] Thin prep Papanicolaou smear with manual screening 5 5-15 [facility] Thin prep Papanicolaou smear with manual screening 1.00 ng/dL 0.76-1.46 [facility] Absolute lymphocyte countOrd ered By: Dr. Meza on 07-20-2022 Lymphocytes Auto (Unsp spec) [#/Vol] 2.82 10*3/uL 0.83-4.51 [facility] Basophil percentageOrdered B y: Dr. Meza on 07-20-2022 Basophils/100 WBC (Bld) 0.6 % 0-1 [facility] Bilirubin [Mass/Vol] 0.50 mg/dL 0.20-1.00 [facility] Comment on above: For patients on eltr ombopag therapy, use of Dimension [place] TBIL is not recommended. Chloride [Moles/Vol] 106 mmol/L 98-107 [facility] Cholesterol [Mass/Vol] 167 mg/dL <200 [facility] Comment on above: <200 mg/dL Desirable 200-240 mg/dL Borderline >240 mg/dL High Risk Eosinophils/100 WBC (Bld) 4.9 % 0-5 [facility] Glucose [Mass/Vol] 97 mg/dL 74-106 [facility] Neutrophils (Bld) [#/Vol] 2.7 10*3/uL 2.0-7.7 [facility] Neutrophils/100 WBC (Bld) 43.3 % 47-70 [facility] Potassium [Moles/Vol] 3.7 mmol/L 3.5-5.1 [facility] Protein [Mass/Vol] 7.2 g/dL 6.4-8.2 [facility] Sodium [Moles/Vol] 142 mmol/L 136-145 [facility] Triglyceride [Mass/Vol] 101 mg/dL <199 [facility] Comment on above: The drugs N-Acetylcy steine and Metamizole may falsely depress this assay.Serum Triglycerides Reference Interval Normal <150 mg/dL Borderline high 150 - 199 mg/dL High 200 - 499 mg/dL Very High > or = 500 mg/dL WBC (Bld) [#/Vol] 6.3 10*3/uL 4.4-11.0 [facility] Blood erythrocytes count (nu mber/volume)Ordered By: Dr. Meza on 07-20-2022 RBC (Bld) [#/Vol] 4.51 10*6/uL 4.2-5.4 [facility] Blood hemoglobin measurement (mass/volume)Ordered By: Dr. Meza on 07-20-2022 Hemoglobin (Bld) [Mass/Vol] 13.8 g/dL 12.0-15.0 [facility] Blood lymphocytes/100 leukoc ytesOrdered By: Dr. Meza on 07-20-2022 Lymphocytes/100 WBC (Bld) 44.8 % 19-41 [facility] Blood monocytes/100 leukocyt esOrdered By: Dr. Meza on 07-20-2022 Monocytes/100 WBC (Bld) 6.2 % 0-10 [facility] Blood platelet mean volumeOr dered By: Dr. Meza on 07-20-2022 Platelet mean volume (Bld) [Entitic vol] 10.5 fL 6.2-12.0 [facility] Determination of erythrocyte mean corpuscular volume (MCV)Ordered By: Dr. Meza on 07-20-2022 MCV (RBC) [Entitic vol] 91.1 fL 81-99 [facility] Hematocrit Auto (Bld) [Volum e fraction]Ordered By: Dr. Meza on 07-20-2022 Hematocrit (Bld) [Volume fraction] 41.1 % 37-47 [facility] Laboratory - Chemistry and C hemistry - challengeOrdered By: Dr. Meza on 07-20-2022 ALP [Catalytic activity/Vol] 71 U/L 45-117 [facility] ALT [Catalytic activity/Vol] 37 U/L 13-56 [facility] CO2 [Moles/Vol] 32.0 mmol/L 21.0-32.0 [facility] Globulin (S) [Mass/Vol] 3.6 g/dL 2.2-4.2 [facility] Urea nitrogen/Creatinine [Mass ratio] 13.7 mg/mg 10-20 [facility] Laboratory - Hematology and Cell countsOrdered By: Dr. Meza on 07-20-2022 Erythrocyte distribution width (RBC) [Entitic vol] 43.6 fL 35.1-43.9 [facility] Erythrocyte distribution width (RBC) [Ratio] 13.1 % 11.6-14.6 [facility] Immature granulocytes/100 WBC (Bld) 0.200 % 0.0-0.9 [facility] Comment on above: IG% - Immature Granu locytes (promyelocytes, myelocytes and metamyelocytes) > 1% indicates that a LEFT SHIFT is Present. MCH (RBC) [Entitic mass] 30.6 pg 27.0-32.0 [facility] Nucleated RBC/100 WBC (Bld) [Ratio] 0 % 0-5 [facility] MCHC Auto (RBC) [Mass/Vol]Or dered By: Dr. Meza on 07-20-2022 MCHC (RBC) [Mass/Vol] 33.6 g/dL 32-36 [facility] No Panel InformationOrdered By: Dr. Meza on 07-20-2022 Estimated GFR (MDRD) Amer 84 mL/min >60 [facility] Comment on above: GFR Calc Estimated GFR (MDRD) Non-Af Amer 69 mL/min >60 [facility] Comment on above: Non- GFR Calc Platelets bldOrdered By: Dr. Meza on 07-20-2022 Platelets (Bld) [#/Vol] 277 10*3/uL 150-450 [facility] Serum or plasma albumin michele urement (mass/volume)Ordered By: Dr. Meza on 07-20-2022 Albumin [Mass/Vol] 3.6 g/dL 3.2-5.0 [facility] Serum or plasma albumin/glob ulin mass ratioOrdered By: Dr. Meza on 07-20-2022 Albumin/Globulin [Mass ratio] 1.0 {ratio} 0.9-2.4 [facility] Serum or plasma calcium michele urement (mass/volume)Ordered By: Dr. Meza on 07-20-2022 Calcium [Mass/Vol] 9.2 mg/dL 8.5-10.1 [facility] Serum or plasma cholesterol in HDL measurement (mass/volume)Ordered By: Dr. Meza on 07-20-2022 Cholesterol in HDL [Mass/Vol] 55 mg/dL >40 [facility] Comment on above: The drugs N-Acetylcy steine and Metamizole may falsely depress this assay. Reference Range HDL <40 mg/dL Low HDL Cholesterol HDL >or= 60 mg/dL High HDL Cholesterol Serum or plasma cholesterol in VLDL measurement (mass/volume)Ordered By: Dr. Meza on 07-20-2022 Cholesterol in VLDL [Mass/Vol] 20 mg/dL 5-40 [facility] Serum or plasma creatinine m easurement (mass/volume)Ordered By: Dr. Meza on 07-20-2022 Creatinine [Mass/Vol] 0.88 mg/dL 0.55-1.02 [facility] Comment on above: The validity of the calculated GFR & GFRAA in patients over 70 years has not been determined. Clinical correlation is essential. Serum or plasma low density lipoprotein (LDL) cholesterol measurement (mass/volume)Ordered By: Dr. Meza on 07-20-2022 Cholesterol in LDL [Mass/Vol] 92 mg/dL 0-130 [facility] Serum or plasma urea nitroge n measurement (mass/volume)Ordered By: Dr. Meza on 07-20-2022 Urea nitrogen [Mass/Vol] 12 mg/dL 7-18 [facility] Thin prep Papanicolaou smear with manual screeningOrdered By: Dr. Meza on 07-20-2022 Thin prep Papanicolaou smear with manual screening 23 U/L 15-37 [facility] Thin prep Papanicolaou smear with manual screening 4 5-15 [facility] PT Progress Noteon 1 PT Progress Note Therapy Diagnosis Assessed Left ankle pain (719.47) (M25.572) Plan Goals: Goals set and discussed today. Pt will demonstrate independence and compliance with HEP and self management, by week 2, goal met Activity Limitation: Increase LEFS to 60 or better for improved QOL, by week 6, goal met Balance: SLS x 10 L for decreased fall risk, by week 8, goal met Gait/Locomotion: Amb with normalized gait pattern without AD, without CAM boot (when permitted by MD) for return to PLOF, by week 8, goal met Pain: Decrease max pain to less than or equal to 1/10 for improved QOL. , by week 8, goal met Range Of Motion/Joint Mobility: L ankle AROM DF to 20 for ability to reciprocally stair climb with uni HR to enter house, by week 8, goal partially met Strength: L ankle strength 5/5 throughout for ability to reciprocally stair climb with uni HR to enter house, by week 8, goal partially met Planned interventions include: aquatic therapy, cryotherapy, edema control, education/instruction, gait training, home program, kinesiotaping, manual therapy, neuromuscular re-education, self care/home management, therapeutic activities and therapeutic exercises . Plan to continue with ankle ROM, strengthening, and gait training per script and as pt tolerates. Plan to continue manual therapy as needed. Frequency and duration: 1 time(s) a week, for 8 weeks, for 8 visits . hold PT 30 days pending trial of self-management. Potential to achieve rehab goals is good Hold PT 30 days, 8 visits if pt elects to resume. Assessment Pt has attended 22 visits of skilled [...] 1x/wk for 8 weeks or 8 visits. Adult Risk Screening There are no spiritual/cultural practices/values/needs that are important to know Initial Fall Risk Screening: JOHANNA has fallen in the last 6 months. She has fallen due to stepped outisde of back door. Her fall resulted in the following injury: . JOHANNA does not have a fear of falling. She needs assistance with . Needs assistance walking in her home. She needs assistance in an unfamiliar setting. The patient is using an assistive device. Fall Risk Screening: Patient is identified as a fall risk. Care Plan: Low Risk: Environmental for all patients and low risk patients: Offer assistance as needed or requested, keep environment free of obstacles, keep floor clean and dry, keep room lighting, wheelchair brakes on, bed/ stretcher locked and in low position if applicable, non-slip footwear if applicable, walker/cane available if needed, side rails up if applicable and pre-emptive toileting. Pain Scale: On a scale of 0 to 10, the patient rates the pain at 1. Please identify location of pain: L ankle at the top/lateral foot and at achilles. Pain Quality: tightness and tired. The pain makes it hard for the patient to do these things: walking, house work and self-care (bathing, dressing, eating). Insurance Insurance reviewed Visit number: 22 POC 02/11. completed supervising PT [facility] [place] Subjective Patient reports:. Reports occ anterior L ankle discomfort, has been wearing ankle brace. Pain 09/17. Sees early July. Precautions: weight bearing restrictions: FWB with brace. Fall Risk: low L trimalleolar ankle fracture s/p repair with hardware 01/25/21 per script: balance training/proprioception , ROM/stretching, strengthening/stabiliza tion, joint mobilization, pain reduction, edema control, gait training, HEP, TENS, compression stockings/dressing, functional progression relevant med hx: L bunionectomy and hammer toe surgery, decreased resultant toe ROM . Objective Ortho L ankle DF AROM 0, PF AROM 38, inv 35, eversion 8 L ankle PF 5/5, DF 5/5, inv 5/5, eversion 5/5 . Outcome Measures Lower Extremity Functional Scale score: 61 Treatment Time in clinic started at 11:50 am Time in clinic ended at 12:34 pm Total time in clinic is 44 minutes. Total timed code time is 42 minutes. Therapeutic exercise (68960): timed minutes 42, units 3 . L ankle PF purp TB 2 x 10 L ankle eversion blue TB 2 x 10 (reviewed verbally for HEP) L ankle inversion blue TB 2 x 10 (reviewed verbally for HEP) *discussion on cont use of brace when amb uneven surfaces and to clarify with MD when able/appropriate to amb barefoot and when able/appropriate to return to impact *discussion on CV exercises that would be less aggra (more content not included)... Normal [id number] Therapy Re-eval Noteon 07-05 Therapy Re-eval Note Therapy Diagnosis Assessed 1. Left ankle pain (719.47) (M25.572) Plan Goals: Goals set and discussed today. Pt will demonstrate independence and compliance with HEP and self management, by week 2, goal met Activity Limitation: Increase LEFS to 60 or better for improved QOL, by week 6, goal met Balance: SLS x 10 L for decreased fall risk, by week 8, goal met Gait/Locomotion: Amb with normalized gait pattern without AD, without CAM boot (when permitted by MD) for return to PLOF, by week 8, goal met Pain: Decrease max pain to less than or equal to 1/10 for improved QOL. , by week 8, goal met Range Of Motion/Joint Mobility: L ankle AROM DF to 20 for ability to reciprocally stair climb with uni HR to enter house, by week 8, goal partially met Strength: L ankle strength 5/5 throughout for ability to reciprocally stair climb with uni HR to enter house, by week 8, goal partially met Planned interventions include: aquatic therapy, cryotherapy, edema control, education/instruction, gait training, home program, kinesiotaping, manual therapy, neuromuscular re-education, self care/home management, therapeutic activities and therapeutic exercises . Plan to continue with ankle ROM, strengthening, and gait training per script and as pt tolerates. Plan to continue manual therapy as needed. Frequency and duration: 1 time(s) a week, for 8 weeks, for 8 visits . hold PT 30 days pending trial of self-management. Potential to achieve rehab goals is good Hold PT 30 days, 8 visits if pt elects to resume. Assessment Pt has attended 22 visits of skilled [...] 1x/wk for 8 weeks or 8 visits. Adult Risk Screening There are no spiritual/cultural practices/values/needs that are important to know Initial Fall Risk Screening: JOHANNA has fallen in the last 6 months. She has fallen due to stepped outisde of back door. Her fall resulted in the following injury: . JOHANNA does not have a fear of falling. She needs assistance with . Needs assistance walking in her home. She needs assistance in an unfamiliar setting. The patient is using an assistive device. Fall Risk Screening: Patient is identified as a fall risk. Care Plan: Low Risk: Environmental for all patients and low risk patients: Offer assistance as needed or requested, keep environment free of obstacles, keep floor clean and dry, keep room lighting, wheelchair brakes on, bed/ stretcher locked and in low position if applicable, non-slip footwear if applicable, walker/cane available if needed, side rails up if applicable and pre-emptive toileting. Pain Scale: On a scale of 0 to 10, the patient rates the pain at 1. Please identify location of pain: L ankle at the top/lateral foot and at achilles. Pain Quality: tightness and tired. The pain makes it hard for the patient to do these things: walking, house work and self-care (bathing, dressing, eating). Insurance Insurance reviewed Visit number: 22 POC 02/11. completed supervising PT [facility] [place] [facility] Subjective Patient reports:. Reports occ anterior L ankle discomfort, has been wearing ankle brace. Pain 09/17. Sees MD early July. Precautions: weight bearing restrictions: FWB with brace. Fall Risk: low L trimalleolar ankle fracture s/p repair with hardware 01/25/21 per script: balance training/proprioception , ROM/stretching, strengthening/stabiliza tion, joint mobilization, pain reduction, edema control, gait training, HEP, TENS, compression stockings/dressing, functional progression relevant med hx: L bunionectomy and hammer toe surgery, decreased resultant toe ROM . Objective Ortho L ankle DF AROM 0, PF AROM 38, inv 35, eversion 8 L ankle PF 5/5, DF 5/5, inv 5/5, eversion 5/5 . Outcome Measures Lower Extremity Functional Scale score: 61 Treatment Time in clinic started at 11:50 am Time in clinic ended at 12:34 pm Total time in clinic is 44 minutes. Total timed code time is 42 minutes. Therapeutic exercise (90317): timed minutes 42, units 3 . L ankle PF purp TB 2 x 10 L ankle eversion blue TB 2 x 10 (reviewed verbally for HEP) L ankle inversion blue TB 2 x 10 (reviewed verbally for HEP) *discussion on cont use of brace when amb uneven surfaces and to clarify with MD when able/appropriate to amb barefoot and when able/appropriate to return to impact *discussion on CV exercises that would be less ag (more content not included)... Normal [employer] PT Progress Noteon 1 PT Progress Note Therapy Diagnosis Assessed Left ankle pain (719.47) (M25.572) Plan Goals: Goals set and discussed today. Pt will demonstrate independence and compliance with HEP and self management, by week 2, goal met Activity Limitation: Increase LEFS to 60 or better for improved QOL, by week 6, goal partially met Balance: SLS x 10 L for decreased fall risk, by week 8, goal partially met Gait/Locomotion: Amb with normalized gait pattern without AD, without CAM boot (when permitted by MD) for return to PLOF, by week 8, goal partially met Pain: Decrease max pain to less than or equal to 1/10 for improved QOL. , by week 8, goal partially met Range Of Motion/Joint Mobility: L ankle AROM DF to 20 for ability to reciprocally stair climb with uni HR to enter house, by week 8, goal partially met Strength: L ankle strength 5/5 throughout for ability to reciprocally stair climb with uni HR to enter house, by week 8, goal partially met Planned interventions include: aquatic therapy, cryotherapy, edema control, education/instruction, gait training, home program, kinesiotaping, manual therapy, neuromuscular re-education, self care/home management, therapeutic activities and therapeutic exercises . Plan to continue with ankle ROM, strengthening, and gait training per script and as pt tolerates. Plan to continue manual therapy as needed. Frequency and duration: 1 time(s) a week, for 6 weeks, for 6 visits. Potential to achieve rehab goals is good Plan to ensure good HEP, in preparation of possibly discharge at next treatment, for continued strengthening and stability of L ankle. - MA. Assessment Patient identified by name AND . Patient wore a mask during treatment d/t Covid-19 precautions. Treatment consisted of ther ex's and NMR activities. Progressed ex's and added NMR activity of hurdles. Patient tolerated progression of treatment well with some slight increase in left ankle pain post treatment and fatigue. Adult Risk Screening There are no spiritual/cultural practices/values/needs that are important to know Initial Fall Risk Screening: JOHANNA has fallen in the last 6 months. She has fallen due to stepped outisde of back door. Her fall resulted in the following injury: . JOHANNA does not have a fear of falling. She needs assistance with . Needs assistance walking in her home. She needs assistance in an unfamiliar setting. The patient is using an assistive device. Fall Risk Screening: Patient is identified as a fall risk. Care Plan: Low Risk: Environmental for all patients and low risk patients: Offer assistance as needed or requested, keep environment free of obstacles, keep floor clean and dry, keep room lighting, wheelchair brakes on, bed/ stretcher locked and in low position if applicable, non-slip footwear if applicable, walker/cane available if needed, side rails up if applicable and pre-emptive toileting. Pain Scale: On a scale of 0 to 10, the patient rates the pain at 1. Please identify location of pain: L ankle at the top/lateral foot and at achilles. Pain Quality: tightness and tired. The pain makes it hard for the patient to do these things: walking, house work and self-care (bathing, dressing, eating). Insurance Insurance reviewed Visit number: 21 POC 01/11. completed supervising PT [facility] [place] [facility] Subjective Patient reports:. Wearing her brace on L ankle when outside of the home and at work, but most of the time when at work she does not. 09/17 left ankle pain pretreatment. Notices that her left ankle still swells. Home program performing as directed: Yes. Precautions: weight bearing restrictions: FWB with brace. Fall Risk: low L trimalleolar ankle fracture s/p repair with hardware 01/25/21 per script: balance training/proprioception , ROM/stretching, strengthening/stabiliza tion, joint mobilization, pain reduction, edema control, gait training, HEP, TENS, compression stockings/dressing, functional progression relevant med hx: L bunionectomy and hammer toe surgery, decreased resultant toe ROM . Treatment Time in clinic started at 10:45 am Time in clinic ended at 11:30 am Total time in clinic is 45 minutes. Total timed code time is 43 minutes. Therapeutic exercise (47737): timed minutes 20, units 1 . *See Gait* *See NMR* *BRACE ON FOR ALL STANDING EX'S AND LEG PRESS* SciFit Nustep, seat 19, Lv-3 x5, LE's only, with brace Slant board 2 x 30 B L FWD Step ups 6 steps x12 L lateral step ups 6 step x12 B standing heel raises off edge of step 2 x10 (P) Reciprocal stairs, 10 steps x2, 1 UE assist ascending, B UE assist descending (not today) Supine leg press - 75# B 2x10 (P, resitance) - 25# L 2x12 (P, reps) Standing fitter board w/ 2.5 insert: PF/DR x20, INV/EV x20 (for ROM) seated BAPS level 1 L PF/DF, circles CW/CCW 2 x 10 E (X) DF stretch with green strap 10 x10 (X) INV/EV stretch with purple flexband 5 x10 (X) L ankle PRE: - PF, Blue band 2x12 (X) - DF/ INV/ EV green band (more content not included)... Normal [facility] PT Progress Noteon 1 PT Progress Note Therapy Diagnosis Assessed Left ankle pain (719.47) (M25.572) Plan Goals: Goals set and discussed today. Pt will demonstrate independence and compliance with HEP and self management, by week 2, goal met Activity Limitation: Increase LEFS to 60 or better for improved QOL, by week 6, goal partially met Balance: SLS x 10 L for decreased fall risk, by week 8, goal partially met Gait/Locomotion: Amb with normalized gait pattern without AD, without CAM boot (when permitted by MD) for return to PLOF, by week 8, goal partially met Pain: Decrease max pain to less than or equal to 1/10 for improved QOL. , by week 8, goal partially met Range Of Motion/Joint Mobility: L ankle AROM DF to 20 for ability to reciprocally stair climb with uni HR to enter house, by week 8, goal partially met Strength: L ankle strength 5/5 throughout for ability to reciprocally stair climb with uni HR to enter house, by week 8, goal partially met Planned interventions include: aquatic therapy, cryotherapy, edema control, education/instruction, gait training, home program, kinesiotaping, manual therapy, neuromuscular re-education, self care/home management, therapeutic activities and therapeutic exercises . Plan to continue with ankle ROM, strengthening, and gait training per script and as pt tolerates. Plan to continue manual therapy as needed. Frequency and duration: 1 time(s) a week, for 6 weeks, for 6 visits. Potential to achieve rehab goals is good Plan to continue 2 more visits for progression of ex's, ROM, strength and stability of L ankle for ease of gait without assistive device. - MA. Assessment Patient identified by name AND . Patient wore a mask during treatment d/t Covid-19 precautions. Treatment consisted of ther ex's, NMR activities and manual STW done for left ankle ROM, strengthening, balance/stability and decreased restrictions. Patient tolerated treatment well with no exacerbation of symptoms. Response to treatment: no change in pain. Adult Risk Screening There are no spiritual/cultural practices/values/needs that are important to know Initial Fall Risk Screening: JOHANNA has fallen in the last 6 months. She has fallen due to stepped outisde of back door. Her fall resulted in the following injury: . JOHANNA does not have a fear of falling. She needs assistance with . Needs assistance walking in her home. She needs assistance in an unfamiliar setting. The patient is using an assistive device. Fall Risk Screening: Patient is identified as a fall risk. Care Plan: Low Risk: Environmental for all patients and low risk patients: Offer assistance as needed or requested, keep environment free of obstacles, keep floor clean and dry, keep room lighting, wheelchair brakes on, bed/ stretcher locked and in low position if applicable, non-slip footwear if applicable, walker/cane available if needed, side rails up if applicable and pre-emptive toileting. Pain Scale: On a scale of 0 to 10, the patient rates the pain at 1. Please identify location of pain: L ankle at the top/lateral foot and at achilles. Pain Quality: tightness and tired. The pain makes it hard for the patient to do these things: walking, house work and self-care (bathing, dressing, eating). Insurance Insurance reviewed Visit number: 20 POC 12/12. completed supervising PT [facility] Subjective Patient reports:. States she had not used her crutch all week and she only has a little discomfort on top/lateral aspect of left foot and at Achilles today. Home program performing as directed: Yes. Precautions: weight bearing restrictions: FWB with brace. Fall Risk: low L trimalleolar ankle fracture s/p repair with hardware 01/25/21 per script: balance training/proprioception , ROM/stretching, strengthening/stabiliza tion, joint mobilization, pain reduction, edema control, gait training, HEP, TENS, compression stockings/dressing, functional progression relevant med hx: L bunionectomy and hammer toe surgery, decreased resultant toe ROM . Treatment Time in clinic started at 11:30 am Time in clinic ended at 12:11 pm Total time in clinic is 41 minutes. Total timed code time is 39 minutes. Therapeutic exercise ([id number]): timed minutes 17, units 1 . *See Gait* *See NMR* *BRACE ON FOR ALL STANDING EX'S AND LEG PRESS* SciFit Nustep, seat 19, Lv-3 x5, LE's only, with brace Slant board 2 x 30 B L FWD Step ups 6 steps x12 L lateral step ups 6 step x12 B standing heel raises 2 x10 Reciprocal stairs, 10 steps x2, 1 UE assist ascending, B UE assist descending (not today) Supine leg press - 65# B 2x10 - 25# L 2x10 Standing fitter board w/ 2.5 insert: PF/DR x20, INV/EV x20 (for ROM) (X not today) seated BAPS level 1 L PF/DF, circles CW/CCW 2 x 10 E DF stretch with green strap 10 x10 (X, no time) INV/EV stretch with purple flexband 5 x10 (X, no time) L ankle PRE: - PF, Blue band 2x12 (X not today) - DF/ INV/ EV green band 2x12 (not today) (more content not included)... Normal [facility] PT Progress Noteon 1 PT Progress Note Therapy Diagnosis Assessed Left ankle pain (719.47) (M25.572) Plan Goals: Goals set and discussed today. Pt will demonstrate independence and compliance with HEP and self management, by week 2, goal met Activity Limitation: Increase LEFS to 60 or better for improved QOL, by week 6, goal partially met Balance: SLS x 10 L for decreased fall risk, by week 8, goal partially met Gait/Locomotion: Amb with normalized gait pattern without AD, without CAM boot (when permitted by MD) for return to PLOF, by week 8, goal partially met Pain: Decrease max pain to less than or equal to 1/10 for improved QOL. , by week 8, goal partially met Range Of Motion/Joint Mobility: L ankle AROM DF to 20 for ability to reciprocally stair climb with uni HR to enter house, by week 8, goal partially met Strength: L ankle strength 5/5 throughout for ability to reciprocally stair climb with uni HR to enter house, by week 8, goal partially met Planned interventions include: aquatic therapy, cryotherapy, edema control, education/instruction, gait training, home program, kinesiotaping, manual therapy, neuromuscular re-education, self care/home management, therapeutic activities and therapeutic exercises . Plan to continue with ankle ROM, strengthening, and gait training per script and as pt tolerates. Plan to continue manual therapy as needed. Frequency and duration: 1 time(s) a week, for 6 weeks, for 6 visits. Potential to achieve rehab goals is good Assessment Pt tolerated session well this date evidenced by ability to complete increased reps without increased pain. Continued with manual therapy d/t pt stating she believed it helped pain last session. Pt reports requiring increased UE assist with neuro re-ed this date compared to a couple weeks ago. Pt does not report increased pain after session. Response to treatment: no change in pain. Adult Risk Screening There are no spiritual/cultural practices/values/needs that are important to know Initial Fall Risk Screening: JOHANNA has fallen in the last 6 months. She has fallen due to stepped outisde of back door. Her fall resulted in the following injury: . JOHANNA does not have a fear of falling. She needs assistance with . Needs assistance walking in her home. She needs assistance in an unfamiliar setting. The patient is using an assistive device. Fall Risk Screening: Patient is identified as a fall risk. Care Plan: Low Risk: Environmental for all patients and low risk patients: Offer assistance as needed or requested, keep environment free of obstacles, keep floor clean and dry, keep room lighting, wheelchair brakes on, bed/ stretcher locked and in low position if applicable, non-slip footwear if applicable, walker/cane available if needed, side rails up if applicable and pre-emptive toileting. Pain Scale: On a scale of 0 to 10, the patient rates the pain at 3. Please identify location of pain: L ankle and 4/10 when she gets a sharp pain. Pain Quality: aching, sharp, tightness and tired. The pain makes it hard for the patient to do these things: walking, house work and self-care (bathing, dressing, eating). Insurance Insurance reviewed Visit number: 19 POC 11/11. completed supervising PT [facility] Patient reports:. Pt rates pain 2-3/10 in L ankle. Pt states pain is always in a different spot of the foot. Pt reports using crutches while walking long distances in the community and when walking into work. Pt states she feels better compared to last session and believes the manual therapy helped. Pt reports she forgot to take Tylenol before session today. Patient confirmed name and date of this session. Precautions: weight bearing restrictions: FWB with brace. Fall Risk: low L trimalleolar ankle fracture s/p repair with hardware 01/25/21 per script: balance training/proprioception , ROM/stretching, strengthening/stabiliza tion, joint mobilization, pain reduction, edema control, gait training, HEP, TENS, compression stockings/dressing, functional progression relevant med hx: L bunionectomy and hammer toe surgery, decreased resultant toe ROM . Treatment Time in clinic started at 11:30 am Time in clinic ended at 12:15 pm Total time in clinic is 45 minutes. Total timed code time is 43 minutes. Therapeutic exercise (65891): timed minutes 20, units 1 . *See Gait* *See NMR* *BRACE ON FOR ALL STANDING EX'S AND LEG PRESS* SciFit Nustep, seat 19, Lv-3 x6, LE's only, with brace (P) Slant board 2 x 30 B FWD Step ups 6 steps L x12 L lateral step ups 6 x12 B standing heel raises 2 x10 Reciprocal stairs, 10 steps x2, 1 UE assist ascending, B UE assist descending (not today) Supine leg press (not today) - 65# B 2x10 - 25# L 2x10 Standing fitter board w/ 2.5 insert: PF/DR x20, INV/EV x20 (for ROM) (not today) seated BAPS level 1 L PF/DF, circles CW/CCW 2 x 10 E DF stretch with green strap 10 x10 (X, no time) INV/EV stretch with purple flexband 5 (more content not included)... Normal [facility] PT Progress Noteon 1 PT Progress Note Therapy Diagnosis Assessed Left ankle pain (719.47) (M25.572) Plan Goals: Goals set and discussed today. Pt will demonstrate independence and compliance with HEP and self management, by week 2, goal met Activity Limitation: Increase LEFS to 60 or better for improved QOL, by week 6, goal partially met Balance: SLS x 10 L for decreased fall risk, by week 8, goal partially met Gait/Locomotion: Amb with normalized gait pattern without AD, without CAM boot (when permitted by MD) for return to PLOF, by week 8, goal partially met Pain: Decrease max pain to less than or equal to 1/10 for improved QOL. , by week 8, goal partially met Range Of Motion/Joint Mobility: L ankle AROM DF to 20 for ability to reciprocally stair climb with uni HR to enter house, by week 8, goal partially met Strength: L ankle strength 5/5 throughout for ability to reciprocally stair climb with uni HR to enter house, by week 8, goal partially met Planned interventions include: aquatic therapy, cryotherapy, edema control, education/instruction, gait training, home program, kinesiotaping, manual therapy, neuromuscular re-education, self care/home management, therapeutic activities and therapeutic exercises . ankle ROM/strengthening per script, gait training per script, manual - potentially STM/IASTM to plantar fascia to decrease tightness. Frequency and duration: 1 time(s) a week, for 6 weeks, for 6 visits. Potential to achieve rehab goals is good Assessment Patient identified by name AND . Patient wore a mask during treatment d/t Covid-19 precautions. Treatment consisted of NMR and manual therapy today. Held on ther ex's today to resume manual therapy for pain reduction. Patient tender at medial aspect of L ankle during STW today. Patient ambulating with decreased L hip AND knee flexion and decreased heel strike and toe off today pretreatment with slight improvement post treatment. Adult Risk Screening There are no spiritual/cultural practices/values/needs that are important to know Initial Fall Risk Screening: JOHANNA has fallen in the last 6 months. She has fallen due to stepped outisde of back door. Her fall resulted in the following injury: . JOHANNA does not have a fear of falling. She needs assistance with . Needs assistance walking in her home. She needs assistance in an unfamiliar setting. The patient is using an assistive device. Fall Risk Screening: Patient is identified as a fall risk. Care Plan: Low Risk: Environmental for all patients and low risk patients: Offer assistance as needed or requested, keep environment free of obstacles, keep floor clean and dry, keep room lighting, wheelchair brakes on, bed/ stretcher locked and in low position if applicable, non-slip footwear if applicable, walker/cane available if needed, side rails up if applicable and pre-emptive toileting. Pain Scale: On a scale of 0 to 10, the patient rates the pain at 3. Please identify location of pain: L ankle and 4/10 when she gets a sharp pain. Pain Quality: aching, sharp, tightness and tired. The pain makes it hard for the patient to do these things: walking, house work and self-care (bathing, dressing, eating). Insurance Insurance reviewed Visit number: 18 POC 10/14. completed supervising PT [facility] Patient reports:. States she saw the surgeon last . States that she has an x-ray taken of L ankle and that everything looked good. States she has been in a lot of pain for the last week. States her pain moves around from one are of her foot to the next. Has been using her crutch a lot. Pain is on the top of her foot today. Precautions: weight bearing restrictions: FWB with brace. Fall Risk: low L trimalleolar ankle fracture s/p repair with hardware 01/25/21 per script: balance training/proprioception , ROM/stretching, strengthening/stabiliza tion, joint mobilization, pain reduction, edema control, gait training, HEP, TENS, compression stockings/dressing, functional progression relevant med hx: L bunionectomy and hammer toe surgery, decreased resultant toe ROM . Treatment Time in clinic started at 11:30 am Time in clinic ended at 12:16 pm Total time in clinic is minutes. Therapeutic exercise ([id number]): timed minutes 6, units 0 . *See Gait* *See NMR* *BRACE ON FOR ALL STANDING EX'S AND LEG PRESS* SciFit Nustep, seat 19, Lv-3 x5, LE's only, with brace Slant board 2 x 30 B FWD Step ups 6 steps L x12 (not today) L lateral step ups x12 (not today) B standing heel raises 2 x10 (not today) Reciprocal stairs, 10 steps x2, 1 UE assist ascending, B UE assist descending (not today) Supine leg press (not today) - 65# B 2x10 - 25# L 2x10 Standing fitter board w/ 2.5 insert: PF/DR x20, INV/EV x20 (for ROM) (not today) seated BAPS level 1 L PF/DF, circles CW/CCW 2 x 10 E (X, no time) DF stretch with green strap 10 x10 (X, no time) INV/EV stretch with purple flexband 5 x10 (X, no time) L ankle PRE: (X, no dat (more content not included)... Normal [facility] PT Progress Noteon 1 PT Progress Note Therapy Diagnosis Assessed Left ankle pain (719.47) (M25.572) Plan Goals: Goals set and discussed today. Pt will demonstrate independence and compliance with HEP and self management, by week 2, goal met Activity Limitation: Increase LEFS to 60 or better for improved QOL, by week 6, goal partially met Balance: SLS x 10 L for decreased fall risk, by week 8, goal partially met Gait/Locomotion: Amb with normalized gait pattern without AD, without CAM boot (when permitted by MD) for return to PLOF, by week 8, goal partially met Pain: Decrease max pain to less than or equal to 1/10 for improved QOL. , by week 8, goal partially met Range Of Motion/Joint Mobility: L ankle AROM DF to 20 for ability to reciprocally stair climb with uni HR to enter house, by week 8, goal partially met Strength: L ankle strength 5/5 throughout for ability to reciprocally stair climb with uni HR to enter house, by week 8, goal partially met Planned interventions include: aquatic therapy, cryotherapy, edema control, education/instruction, gait training, home program, kinesiotaping, manual therapy, neuromuscular re-education, self care/home management, therapeutic activities and therapeutic exercises . ankle ROM/strengthening per script, gait training per script, manual - potentially STM/IASTM to plantar fascia to decrease tightness. Frequency and duration: 1 time(s) a week, for 6 weeks, for 6 visits. Potential to achieve rehab goals is good Plan to continue to progress DF ROM for decreased antalgic gait pattern and ease of ambulation. Assessment Patient identified by name AND . Patient wore a mask during treatment d/t Covid-19 precautions. Treatment consisted of NMR activities, ther ex's and manual therapy. Able to progress NMR activities with good tolerance and no LOB's. Completed STW to lateral aspect of ankle and manual stretches for improved DF ROM. Patient with decreased pain to 3/10 post treatment. Adult Risk Screening There are no spiritual/cultural practices/values/needs that are important to know Initial Fall Risk Screening: JOHANNA has fallen in the last 6 months. She has fallen due to stepped outisde of back door. Her fall resulted in the following injury: . JOHANNA does not have a fear of falling. She needs assistance with . Needs assistance walking in her home. She needs assistance in an unfamiliar setting. The patient is using an assistive device. Fall Risk Screening: Patient is identified as a fall risk. Care Plan: Low Risk: Environmental for all patients and low risk patients: Offer assistance as needed or requested, keep environment free of obstacles, keep floor clean and dry, keep room lighting, wheelchair brakes on, bed/ stretcher locked and in low position if applicable, non-slip footwear if applicable, walker/cane available if needed, side rails up if applicable and pre-emptive toileting. Pain Scale: On a scale of 0 to 10, the patient rates the pain at 4. Please identify location of pain: L ankle on top, lateral aspect of her foot. Pain Quality: aching, sharp, tightness and tired. The pain makes it hard for the patient to do these things: walking, house work and self-care (bathing, dressing, eating). Insurance Insurance reviewed Visit number: 16 POC 09/13. completed supervising PT [facility] Patient reports:. States she started to have pain on the lateral top of her left foot. Pain started on Friday. She did go to [place] on Friday, but states she rode in a cart. Did have to use a crutch to assist with ambulation yesterday due to pain. Pain decreased post treatment. Home program performing as directed: Yes. Precautions: weight bearing restrictions: FWB with brace. Fall Risk: low L trimalleolar ankle fracture s/p repair with hardware 01/25/21 per script: balance training/proprioception , ROM/stretching, strengthening/stabiliza tion, joint mobilization, pain reduction, edema control, gait training, HEP, TENS, compression stockings/dressing, functional progression relevant med hx: L bunionectomy and hammer toe surgery, decreased resultant toe ROM . Treatment Time in clinic started at 9:30 am Therapeutic exercise ([id number]): timed minutes 20, units 1 . *See Gait* *See NMR* *BRACE ON FOR ALL STANDING EX'S AND LEG PRESS* SciFit Nustep, seat 19, Lv-3 x5, LE's only, with brace (P) Slant board 2 x 30 B FWD Step ups 6 steps L x12 (not today) L lateral step ups x12 (not today) B standing heel raises 2 x10 (not today) Reciprocal stairs, 10 steps x2, 1 UE assist ascending, B UE assist descending (not today) Supine leg press (not today) - 65# B 2x10 - 25# L 2x10 Standing fitter board w/ 2.5 insert: PF/DR x20, INV/EV x20 (for ROM) (not today) seated BAPS level 1 L PF/DF, circles CW/CCW 2 x 10 E DF stretch with green strap 10 x10 INV/EV stretch with purple flexband 5 x10 (X, no time) L ankle PRE: - PF, Blue band 2x12 - DF/ INV/ EV green band 2x12 (more content not included)... Normal [facility] PT Progress Noteon 1 PT Progress Note Therapy Diagnosis Assessed Left ankle pain (719.47) (M25.572) Plan Goals: Goals set and discussed today. Pt will demonstrate independence and compliance with HEP and self management, by week 2, goal met Activity Limitation: Increase LEFS to 60 or better for improved QOL, by week 6, goal partially met Balance: SLS x 10 L for decreased fall risk, by week 8, goal partially met Gait/Locomotion: Amb with normalized gait pattern without AD, without CAM boot (when permitted by MD) for return to PLOF, by week 8, goal partially met Pain: Decrease max pain to less than or equal to 1/10 for improved QOL. , by week 8, goal partially met Range Of Motion/Joint Mobility: L ankle AROM DF to 20 for ability to reciprocally stair climb with uni HR to enter house, by week 8, goal partially met Strength: L ankle strength 5/5 throughout for ability to reciprocally stair climb with uni HR to enter house, by week 8, goal partially met Planned interventions include: aquatic therapy, cryotherapy, edema control, education/instruction, gait training, home program, kinesiotaping, manual therapy, neuromuscular re-education, self care/home management, therapeutic activities and therapeutic exercises . ankle ROM/strengthening per script, gait training per script, manual - potentially STM/IASTM to plantar fascia to decrease tightness. Frequency and duration: 1 time(s) a week, for 6 weeks, for 6 visits. Potential to achieve rehab goals is good Progress with POC, as tolerated. Assessment Pt has attended 16 visits of skilled [...] with normalized gait without increased ankle pain. At today's session, introduced BAPS board to increase ROM, no increased symptoms reported throughout. Response to treatment: no change in pain. Patient was able to complete today's treatment with some difficulty. Adult Risk Screening There are no spiritual/cultural practices/values/needs that are important to know Initial Fall Risk Screening: JOHANNA has fallen in the last 6 months. She has fallen due to stepped outisde of back door. Her fall resulted in the following injury: . JOHANNA does not have a fear of falling. She needs assistance with . Needs assistance walking in her home. She needs assistance in an unfamiliar setting. The patient is using an assistive device. Fall Risk Screening: Patient is identified as a fall risk. Care Plan: Low Risk: Environmental for all patients and low risk patients: Offer assistance as needed or requested, keep environment free of obstacles, keep floor clean and dry, keep room lighting, wheelchair brakes on, bed/ stretcher locked and in low position if applicable, non-slip footwear if applicable, walker/cane available if needed, side rails up if applicable and pre-emptive toileting. Pain Scale: On a scale of 0 to 10, the patient rates the pain at 1. Please identify location of pain: L ankle on top of her foot. Pain Quality: tightness and tired. The pain makes it hard for the patient to do these things: walking, house work and self-care (bathing, dressing, eating). Insurance Insurance reviewed Visit number: 16 POC supervising PT [facility] Subjective Patient reports:. Notes difficulty with sitting extended time at work greater than an hour. Is working 32 hours a week. Has been amb with brace without crutches for 1-2 weeks. Pain 2/10 at rest, max pain in past week 3/10. Aggravating activities: standing, walking, sitting with leg in dependent position (notes some swelling with this). Precautions: weight bearing restrictions: FWB with brace. Fall Risk: low L trimalleolar ankle fracture s/p repair with hardware 01/25/21 per script: balance training/proprioception , ROM/stretching, strengthening/stabiliza tion, joint mobilization, pain reduction, edema control, gait training, HEP, TENS, compression stockings/dressing, functional progression relevant med hx: L bunionectomy and hammer toe surgery, decreased resultant toe ROM . Objective Ortho LEFS 40/80 L ankle DF AROM 0, PF AROM 35, inversion AROM 30, eversion AROM 10 . Treatment Time in clinic started at 1:32 pm Time in clinic ended at 2:05pm Total time in clinic is 33 minutes. Total timed code time is 25 minutes. Therapeutic exercise (64714): timed minutes 25, units 2 . *See Gait* *See NMR* *BRACE ON FOR ALL STANDING EX'S AND LEG PRESS* SciFit Nustep, seat 19, Lv-2 x5, LE's only, with brace Slant board 2 x 30 B FWD Step ups 6 steps L x12 (not today) L lateral step ups x12 (not today) B standing heel raises 2 x10 (not today) Reciprocal stairs, 10 steps x2, 1 UE assist ascending, B UE assist desc (more content not included)... Normal [facility] Therapy Re-eval Noteon 05-17 Therapy Re-eval Note Therapy Diagnosis Assessed 1. Left ankle pain (719.47) (M25.572) Plan Goals: Goals set and discussed today. Pt will demonstrate independence and compliance with HEP and self management, by week 2, goal met Activity Limitation: Increase LEFS to 60 or better for improved QOL, by week 6, goal partially met Balance: SLS x 10 L for decreased fall risk, by week 8, goal partially met Gait/Locomotion: Amb with normalized gait pattern without AD, without CAM boot (when permitted by MD) for return to PLOF, by week 8, goal partially met Pain: Decrease max pain to less than or equal to 1/10 for improved QOL. , by week 8, goal partially met Range Of Motion/Joint Mobility: L ankle AROM DF to 20 for ability to reciprocally stair climb with uni HR to enter house, by week 8, goal partially met Strength: L ankle strength 5/5 throughout for ability to reciprocally stair climb with uni HR to enter house, by week 8, goal partially met Planned interventions include: aquatic therapy, cryotherapy, edema control, education/instruction, gait training, home program, kinesiotaping, manual therapy, neuromuscular re-education, self care/home management, therapeutic activities and therapeutic exercises . ankle ROM/strengthening per script, gait training per script, manual - potentially STM/IASTM to plantar fascia to decrease tightness. Frequency and duration: 1 time(s) a week, for 6 weeks, for 6 visits. Potential to achieve rehab goals is good Progress with POC, as tolerated. Assessment Pt has attended 16 visits of skilled [...] with normalized gait without increased ankle pain. At today's session, introduced BAPS board to increase ROM, no increased symptoms reported throughout. Response to treatment: no change in pain. Patient was able to complete today's treatment with some difficulty. Adult Risk Screening There are no spiritual/cultural practices/values/needs that are important to know Initial Fall Risk Screening: JOHANNA has fallen in the last 6 months. She has fallen due to stepped outisde of back door. Her fall resulted in the following injury: . JOHANNA does not have a fear of falling. She needs assistance with . Needs assistance walking in her home. She needs assistance in an unfamiliar setting. The patient is using an assistive device. Fall Risk Screening: Patient is identified as a fall risk. Care Plan: Low Risk: Environmental for all patients and low risk patients: Offer assistance as needed or requested, keep environment free of obstacles, keep floor clean and dry, keep room lighting, wheelchair brakes on, bed/ stretcher locked and in low position if applicable, non-slip footwear if applicable, walker/cane available if needed, side rails up if applicable and pre-emptive toileting. Pain Scale: On a scale of 0 to 10, the patient rates the pain at 1. Please identify location of pain: L ankle on top of her foot. Pain Quality: tightness and tired. The pain makes it hard for the patient to do these things: walking, house work and self-care (bathing, dressing, eating). Insurance Insurance reviewed Visit number: 16 POC supervising PT [facility] Subjective Patient reports:. Notes difficulty with sitting extended time at work greater than an hour. Is working 32 hours a week. Has been amb with brace without crutches for 1-2 weeks. Pain 2/10 at rest, max pain in past week 3/10. Aggravating activities: standing, walking, sitting with leg in dependent position (notes some swelling with this). Precautions: weight bearing restrictions: FWB with brace. Fall Risk: low L trimalleolar ankle fracture s/p repair with hardware 01/25/21 per script: balance training/proprioception , ROM/stretching, strengthening/stabiliza tion, joint mobilization, pain reduction, edema control, gait training, HEP, TENS, compression stockings/dressing, functional progression relevant med hx: L bunionectomy and hammer toe surgery, decreased resultant toe ROM . Objective Ortho LEFS 40/80 L ankle DF AROM 0, PF AROM 35, inversion AROM 30, eversion AROM 10 . Treatment Time in clinic started at 1:32 pm Time in clinic ended at 2:05pm Total time in clinic is 33 minutes. Total timed code time is 25 minutes. Therapeutic exercise (09854): timed minutes 25, units 2 . *See Gait* *See NMR* *BRACE ON FOR ALL STANDING EX'S AND LEG PRESS* SciFit Nustep, seat 19, Lv-2 x5, LE's only, with brace Slant board 2 x 30 B FWD Step ups 6 steps L x12 (not today) L lateral step ups x12 (not today) B standing heel raises 2 x10 (not today) Reciprocal stairs, 10 steps x2, 1 UE assist ascending, B UE assist d (more content not included)... Normal [facility] PT Progress Noteon 1 PT Progress Note Therapy Diagnosis Assessed Left ankle pain (719.47) (M25.572) Plan Goals: Goals set and discussed today. Pt will demonstrate independence and compliance with HEP and self management, by week 2 Activity Limitation: Increase LEFS to 60 or better for improved QOL, by week 6 Balance: SLS x 10 L for decreased fall risk, by week 8 Gait/Locomotion: Amb with normalized gait pattern without AD, without CAM boot (when permitted by MD) for return to PLOF, by week 8 Pain: Decrease max pain to less than or equal to 1/10 for improved QOL. , by week 8 Range Of Motion/Joint Mobility: L ankle AROM DF to 20 for ability to reciprocally stair climb with uni HR to enter house, by week 8 Strength: L ankle strength 5/5 throughout for ability to reciprocally stair climb with uni HR to enter house, by week 8 Planned interventions include: aquatic therapy, cryotherapy, edema control, education/instruction, gait training, home program, kinesiotaping, manual therapy, neuromuscular re-education, self care/home management, therapeutic activities and therapeutic exercises . progress WBing in // bars with CAM boot using scale, ankle ROM/strengthening per script, gait training per script, manual - potentially STM/IASTM to plantar fascia to decrease tightness. Frequency and duration: 2 time(s) a week, for 8 weeks, for 16 visits. Potential to achieve rehab goals is good Plan for reassessment in one week with evaluating therapist. Patient to continue with HEP until then, -MA. Assessment Patient identified by name AND . Patient wore a mask during treatment d/t Covid-19 precautions. Treatment consisted of NMR activities and ther ex's. Patient ambulating without crutches today. Decreased UE assist needed with NMR activities. Improved gait, without assistive device, improved stability of L ankle. Symptoms the same pre and post treatment. Adult Risk Screening There are no spiritual/cultural practices/values/needs that are important to know Initial Fall Risk Screening: JOHANNA has fallen in the last 6 months. She has fallen due to stepped outisde of back door. Her fall resulted in the following injury: . JOHANNA does not have a fear of falling. She needs assistance with . Needs assistance walking in her home. She needs assistance in an unfamiliar setting. The patient is using an assistive device. Fall Risk Screening: Patient is identified as a fall risk. Care Plan: Low Risk: Environmental for all patients and low risk patients: Offer assistance as needed or requested, keep environment free of obstacles, keep floor clean and dry, keep room lighting, wheelchair brakes on, bed/ stretcher locked and in low position if applicable, non-slip footwear if applicable, walker/cane available if needed, side rails up if applicable and pre-emptive toileting. Pain Scale: On a scale of 0 to 10, the patient rates the pain at 1. Please identify location of pain: L ankle on top of her foot. Pain Quality: tightness and tired. The pain makes it hard for the patient to do these things: walking, house work and self-care (bathing, dressing, eating). Insurance Insurance reviewed Visit number: 15 POC supervising PT [facility] Subject[facility] Patient reports:. Reports her back has been feeling pretty good and she has been able to walk without her crutches. Home program performing as directed: Yes. Precautions: weight bearing restrictions: PWBing LLE with CAM boot, will transfer to full WBAT/brace transition around week 10 pending x-ray update. Fall Risk: low L trimalleolar ankle fracture s/p repair with hardware 01/25/21 per script: balance training/proprioception , ROM/stretching, strengthening/stabiliza tion, joint mobilization, pain reduction, edema control, gait training, HEP, TENS, compression stockings/dressing, functional progression Now partial WBAT with LLE in CAM, will transition to full WBAT, possible brace transition around week 10 pending x-ray update. relevant med hx: L bunionectomy and hammer toe surgery, decreased resultant toe ROM . Treatment Time in clinic started at 11:35 am Time in clinic ended at 12:15 pm Total time in clinic is 40 minutes. Total timed code time is 38 minutes. Therapeutic exercise (67810): timed minutes 27, units 2 . *See Gait* *See NMR* *BRACE ON FOR ALL STANDING EX'S AND LEG PRESS* *Per report, patient can start full WB in cam boot on Apr 13 per tolerance) NuStep, seat 10 LE's only, Lv-2 x5' for L ankle ROM - with brace (X) SciFit Nustep, seat 19, Lv-2 x5, LE's only, with brace Slant board 2 x 30 B FWD Step ups 6 steps L x12 L lateral step ups x12 B standing heel raises 2 x10 Reciprocal stairs, 10 steps x2, 1 UE assist ascending, B UE assist descending Supine leg press - 65# B 2x10 - 25# L 2x10 Standing fitter board w/ 2.5 insert: PF/DR x20, INV/EV x20 (for ROM) DF stretch with purple flexband 10 x10 (X, no tme) INV/EV stretch with purple flexband 5 x10 (X, no time) L ankle P (more content not included)... Normal [facility] PT Progress Noteon 1 PT Progress Note Therapy Diagnosis Assessed Left ankle pain (719.47) (M25.572) Plan Goals: Goals set and discussed today. Pt will demonstrate independence and compliance with HEP and self management, by week 2 Activity Limitation: Increase LEFS to 60 or better for improved QOL, by week 6 Balance: SLS x 10 L for decreased fall risk, by week 8 Gait/Locomotion: Amb with normalized gait pattern without AD, without CAM boot (when permitted by MD) for return to PLOF, by week 8 Pain: Decrease max pain to less than or equal to 1/10 for improved QOL. , by week 8 Range Of Motion/Joint Mobility: L ankle AROM DF to 20 for ability to reciprocally stair climb with uni HR to enter house, by week 8 Strength: L ankle strength 5/5 throughout for ability to reciprocally stair climb with uni HR to enter house, by week 8 Planned interventions include: aquatic therapy, cryotherapy, edema control, education/instruction, gait training, home program, kinesiotaping, manual therapy, neuromuscular re-education, self care/home management, therapeutic activities and therapeutic exercises . progress WBing in // bars with CAM boot using scale, ankle ROM/strengthening per script, gait training per script, manual - potentially STM/IASTM to plantar fascia to decrease tightness. Frequency and duration: 2 time(s) a week, for 8 weeks, for 16 visits. Potential to achieve rehab goals is good Plan to continue with L ankle strength, stability and ROM for ease of reciprocal stairs. -MA. Assessment Patient identified by name AND . Patient wore a mask during treatment d/t Covid-19 precautions. Treatment consisted of NMR activities and ther ex's for L ankle strengthening and stability. Addresses SLS goal and reciprocal stair goal this treatment, with fair tolerance. Brace on with all activities today. Patient with slight increase in L ankle pain post treatment. Adult Risk Screening There are no spiritual/cultural practices/values/needs that are important to know Initial Fall Risk Screening: JOHANNA has fallen in the last 6 months. She has fallen due to stepped outisde of back door. Her fall resulted in the following injury: . JOHANNA does not have a fear of falling. She needs assistance with . Needs assistance walking in her home. She needs assistance in an unfamiliar setting. The patient is using an assistive device. Fall Risk Screening: Patient is identified as a fall risk. Care Plan: Low Risk: Environmental for all patients and low risk patients: Offer assistance as needed or requested, keep environment free of obstacles, keep floor clean and dry, keep room lighting, wheelchair brakes on, bed/ stretcher locked and in low position if applicable, non-slip footwear if applicable, walker/cane available if needed, side rails up if applicable and pre-emptive toileting. Pain Scale: On a scale of 0 to 10, the patient rates the pain at 2. Please identify location of pain: L ankle. Pain Quality: aching, dull and tightness. The pain makes it hard for the patient to do these things: walking, house work and self-care (bathing, dressing, eating). Insurance Insurance Visit number: 14 POC supervising PT [facility] Subject[facility] Patient reports:. Her back is finally feeling better and she is able to walk with 1 crutch today. Returns to the doctor in 4-5 weeks. 3/10 L ankle pain post treatment. Home program performing as directed: Yes. Precautions: weight bearing restrictions: PWBing LLE with CAM boot, will transfer to full WBAT/brace transition around week 10 pending x-ray update. Fall Risk: low L trimalleolar ankle fracture s/p repair with hardware 01/25/21 per script: balance training/proprioception , ROM/stretching, strengthening/stabiliza tion, joint mobilization, pain reduction, edema control, gait training, HEP, TENS, compression stockings/dressing, functional progression Now partial WBAT with LLE in CAM, will transition to full WBAT, possible brace transition around week 10 pending x-ray update. relevant med hx: L bunionectomy and hammer toe surgery, decreased resultant toe ROM . Treatment Time in clinic started at 1:15 pm Time in clinic ended at 1:59 pm Total time in clinic is 44 minutes. Therapeutic exercise (15212): timed minutes 19, units 1 . *See Gait* *See NMR* *BRACE ON FOR ALL STANDING EX'S AND LEG PRESS* *Per report, patient can start full WB in cam boot on Apr 13 per tolerance) NuStep, seat 10 LE's only, Lv-2 x5' for L ankle ROM - with brace Slant board 2 x 30 B (P, time) L ankle AROM PF/DF, INV/EV, x20 ea L (X, no time) DF stretch with purple flexband 10 x10 (X, no tme) INV/EV stretch with purple flexband 5 x10 (X, no time) L ankle PRE: - PF, Blue band 2x12 (X, no time) - DF/ INV/ EV [place] band 2x12 (X, no time) Standing fitter board w/ 2.5 insert: PF/DR x20, INV/EV x20 (for ROM) (X, no time) FWD Step ups 6 steps L x12 (P, reps) L lateral step ups x12 (P, reps) B standing heel raises 2 x10 Supine leg press (more content not included)... Normal [employer] PT Progress Noteon 1 PT Progress Note Therapy Diagnosis Assessed Left ankle pain (719.47) (M25.572) Plan Goals: Goals set and discussed today. Pt will demonstrate independence and compliance with HEP and self management, by week 2 Activity Limitation: Increase LEFS to 60 or better for improved QOL, by week 6 Balance: SLS x 10 L for decreased fall risk, by week 8 Gait/Locomotion: Amb with normalized gait pattern without AD, without CAM boot (when permitted by MD) for return to PLOF, by week 8 Pain: Decrease max pain to less than or equal to 1/10 for improved QOL. , by week 8 Range Of Motion/Joint Mobility: L ankle AROM DF to 20 for ability to reciprocally stair climb with uni HR to enter house, by week 8 Strength: L ankle strength 5/5 throughout for ability to reciprocally stair climb with uni HR to enter house, by week 8 Planned interventions include: aquatic therapy, cryotherapy, edema control, education/instruction, gait training, home program, kinesiotaping, manual therapy, neuromuscular re-education, self care/home management, therapeutic activities and therapeutic exercises . progress WBing in // bars with CAM boot using scale, ankle ROM/strengthening per script, gait training per script, manual - potentially STM/IASTM to plantar fascia to decrease tightness. Frequency and duration: 2 time(s) a week, for 8 weeks, for 16 visits. Potential to achieve rehab goals is good Plan to continue with L ankle ROM, manual therapy and ex's for improved gait pattern and endurance to be on her feet for longer periods of time with her job. - DANIELLE. Assessment Patient identified by name AND . Patient wore a mask during treatment d/t Covid-19 precautions. Treatment consisted of ther ex's and manual therapy. Patient with improved gait pattern with and without the crutches and improved tolerance to ex's. Continues to have limited DF ROM. Pain level the same post treatment. Adult Risk Screening There are no spiritual/cultural practices/values/needs that are important to know Initial Fall Risk Screening: JOHANNA has fallen in the last 6 months. She has fallen due to stepped outisde of back door. Her fall resulted in the following injury: . JOHANNA does not have a fear of falling. She needs assistance with . Needs assistance walking in her home. She needs assistance in an unfamiliar setting. The patient is using an assistive device. Fall Risk Screening: Patient is identified as a fall risk. Care Plan: Low Risk: Environmental for all patients and low risk patients: Offer assistance as needed or requested, keep environment free of obstacles, keep floor clean and dry, keep room lighting, wheelchair brakes on, bed/ stretcher locked and in low position if applicable, non-slip footwear if applicable, walker/cane available if needed, side rails up if applicable and pre-emptive toileting. Pain Scale: On a scale of 0 to 10, the patient rates the pain at 2. Please identify location of pain: L ankle. Pain Quality: aching, dull and throbbing. The pain makes it hard for the patient to do these things: walking, house work and self-care (bathing, dressing, eating). Insurance Insurance reviewed Visit number: 13 POC supervising PT [facility] Subjective Patient reports:. 10/18 left ankle pain pretreatment, but she did take Advil this am for her back. States she uses 2 crutches when walking long distances and goes without her crutches sometimes at work and at home. Home program performing as directed: Yes. Precautions: weight bearing restrictions: PWBing LLE with CAM boot, will transfer to full WBAT/brace transition around week 10 pending x-ray update. Fall Risk: low L trimalleolar ankle fracture s/p repair with hardware 01/25/21 per script: balance training/proprioception , ROM/stretching, strengthening/stabiliza tion, joint mobilization, pain reduction, edema control, gait training, HEP, TENS, compression stockings/dressing, functional progression Now partial WBAT with LLE in CAM, will transition to full WBAT, possible brace transition around week 10 pending x-ray update. relevant med hx: L bunionectomy and hammer toe surgery, decreased resultant toe ROM . Treatment Time in clinic started at 11:32 am Time in clinic ended at 12:18 pm Total time in clinic is 46 minutes. Total timed code time is 44 minutes. Therapeutic exercise (04301): timed minutes 32, units 2 . *See Gait* *BRACE ON FOR ALL STANDING EX'S AND LEG PRESS* *Per report, patient can start full WB in cam boot on Apr 13 per tolerance) NuStep, seat 10 LE's only, Lv-2 x5' for L ankle ROM - with brace Slant board 2 x 20 B L ankle AROM PF/DF, INV/EV, x20 ea L DF stretch with purple flexband 10 x10 INV/EV stretch with purple flexband 5 x10 L ankle PRE: - PF, Blue band 2x12 - DF/ INV/ EV [place] band 2x12 (X, no time) Standing fitter board w/ 2.5 insert: PF/DR x20, INV/EV x20 (for ROM) FWD Step ups 6 steps L x10 L lateral step ups x10 (N) B standing heel raises 2 x10 (more content not included)... Normal [facility] PT Progress Noteon 1 PT Progress Note Therapy Diagnosis Assessed Left ankle pain (719.47) (M25.572) Plan Goals: Goals set and discussed today. Pt will demonstrate independence and compliance with HEP and self management, by week 2 Activity Limitation: Increase LEFS to 60 or better for improved QOL, by week 6 Balance: SLS x 10 L for decreased fall risk, by week 8 Gait/Locomotion: Amb with normalized gait pattern without AD, without CAM boot (when permitted by MD) for return to PLOF, by week 8 Pain: Decrease max pain to less than or equal to 1/10 for improved QOL. , by week 8 Range Of Motion/Joint Mobility: L ankle AROM DF to 20 for ability to reciprocally stair climb with uni HR to enter house, by week 8 Strength: L ankle strength 5/5 throughout for ability to reciprocally stair climb with uni HR to enter house, by week 8 Planned interventions include: aquatic therapy, cryotherapy, edema control, education/instruction, gait training, home program, kinesiotaping, manual therapy, neuromuscular re-education, self care/home management, therapeutic activities and therapeutic exercises . progress WBing in // bars with CAM boot using scale, ankle ROM/strengthening per script, gait training per script, manual - potentially STM/IASTM to plantar fascia to decrease tightness. Frequency and duration: 2 time(s) a week, for 8 weeks, for 16 visits. Potential to achieve rehab goals is good Plan to continue with STW and ther ex's to increase strength and stability of left ankle for ease of gait. - MA. Assessment Patient identified by name AND . Patient wore a mask during treatment d/t Covid-19 precautions. Treatment consisted of ther ex's and STW, both manually and with [employer] worker tools. Patient arrived 15 min late today and unable to complete all ther ex's this session. Patient pain level the same post treatment. Adult Risk Screening There are no spiritual/cultural practices/values/needs that are important to know Initial Fall Risk Screening: JOHANNA has fallen in the last 6 months. She has fallen due to stepped outisde of back door. Her fall resulted in the following injury: . JOHANNA does not have a fear of falling. She needs assistance with . Needs assistance walking in her home. She needs assistance in an unfamiliar setting. The patient is using an assistive device. Fall Risk Screening: Patient is identified as a fall risk. Care Plan: Low Risk: Environmental for all patients and low risk patients: Offer assistance as needed or requested, keep environment free of obstacles, keep floor clean and dry, keep room lighting, wheelchair brakes on, bed/ stretcher locked and in low position if applicable, non-slip footwear if applicable, walker/cane available if needed, side rails up if applicable and pre-emptive toileting. Pain Scale: On a scale of 0 to 10, the patient rates the pain at 3. Please identify location of pain: L ankle. Pain Quality: aching, dull and throbbing. The pain makes it hard for the patient to do these things: walking, house work and self-care (bathing, dressing, eating). Insurance Insurance reviewed Visit number: 12 POC 08/23 supervising PT [facility] Subjective Patient reports:. Reports 3/10 left ankle pain with walking today. States she is now using 2 crutches because her back has been very painful. She went to the chiropractor on Friday. Home program performing as directed: Yes. Precautions: weight bearing restrictions: PWBing LLE with CAM boot, will transfer to full WBAT/brace transition around week 10 pending x-ray update. Fall Risk: low L trimalleolar ankle fracture s/p repair with hardware 01/25/21 per script: balance training/proprioception , ROM/stretching, strengthening/stabiliza tion, joint mobilization, pain reduction, edema control, gait training, HEP, TENS, compression stockings/dressing, functional progression Now partial WBAT with LLE in CAM, will transition to full WBAT, possible brace transition around week 10 pending x-ray update. relevant med hx: L bunionectomy and hammer toe surgery, decreased resultant toe ROM . Treatment Time in clinic started at 1:30 pm Time in clinic ended at 2:02 pm Total time in clinic is 32 minutes. Total timed code time is 30 minutes. Therapeutic exercise (72914): timed minutes 15 . *See Gait* *BRACE ON FOR ALL STANDING EX'S AND LEG PRESS* *Per report, patient can start full WB in cam boot on Apr 13 per tolerance) NuStep, seat 10 LE's only, Lv-2 x5' for L ankle ROM - with brace Slant board 2 x 20 B L ankle AROM PF/DF, INV/EV, x20 ea L (X, no time) DF stretch with purple flexband 10 x10 (X, no time) INV/EV stretch with purple flexband 5 x10 (X, no time) L ankle PRE: - PF, Blue band 2x12 (X, no time) - DF/ INV/ EV [place] band 2x12 (X, no time) Standing fitter board w/ 2.5 insert: PF/DR 2 x10, INV/EV 2x10 FWD Step ups 6 steps L x10 (X, no time) L lateral step ups (A) B standing heel raises 2 x10 Supine leg press, light weight - 50# B 2x10 (P, s (more content not included)... Normal [facility] PT Progress Noteon 1 PT Progress Note Therapy Diagnosis Assessed Left ankle pain (719.47) (M25.572) Plan Goals: Goals set and discussed today. Pt will demonstrate independence and compliance with HEP and self management, by week 2 Activity Limitation: Increase LEFS to 60 or better for improved QOL, by week 6 Balance: SLS x 10 L for decreased fall risk, by week 8 Gait/Locomotion: Amb with normalized gait pattern without AD, without CAM boot (when permitted by MD) for return to PLOF, by week 8 Pain: Decrease max pain to less than or equal to 1/10 for improved QOL. , by week 8 Range Of Motion/Joint Mobility: L ankle AROM DF to 20 for ability to reciprocally stair climb with uni HR to enter house, by week 8 Strength: L ankle strength 5/5 throughout for ability to reciprocally stair climb with uni HR to enter house, by week 8 Planned interventions include: aquatic therapy, cryotherapy, edema control, education/instruction, gait training, home program, kinesiotaping, manual therapy, neuromuscular re-education, self care/home management, therapeutic activities and therapeutic exercises . progress WBing in // bars with CAM boot using scale, ankle ROM/strengthening per script, gait training per script, manual - potentially STM/IASTM to plantar fascia to decrease tightness. Frequency and duration: 2 time(s) a week, for 8 weeks, for 16 visits. Potential to achieve rehab goals is good Plan to continue with L ankle ROM and strengthening for improved gait with eventual progressing to no assistive device. -MA. Assessment Patient identified by name AND . Patient wore a mask during treatment d/t Covid-19 precautions. Treatment consisted of ther ex's and manual therapy. Ex's were progressed today with good tolerance and no complaints of increased pain. Continued with STW and IASTM at end of session for decreased tightness in plantar fascia and top of foot. Patient with improved weight bearing with 1 crutch and less leaning toward crutch with ambulation. Ambulating with boot, but without crutch some of the time in rehab area during treatment. Pain level the same post treatment. Adult Risk Screening There are no spiritual/cultural practices/values/needs that are important to know Initial Fall Risk Screening: JOHANNA has fallen in the last 6 months. She has fallen due to stepped outisde of back door. Her fall resulted in the following injury: . JOHANNA does not have a fear of falling. She needs assistance with . Needs assistance walking in her home. She needs assistance in an unfamiliar setting. The patient is using an assistive device. Fall Risk Screening: Patient is identified as a fall risk. Care Plan: Low Risk: Environmental for all patients and low risk patients: Offer assistance as needed or requested, keep environment free of obstacles, keep floor clean and dry, keep room lighting, wheelchair brakes on, bed/ stretcher locked and in low position if applicable, non-slip footwear if applicable, walker/cane available if needed, side rails up if applicable and pre-emptive toileting. Pain Scale: On a scale of 0 to 10, the patient rates the pain at 4. Please identify location of pain: L ankle. Pain Quality: aching, dull and throbbing. The pain makes it hard for the patient to do these things: walking, house work and self-care (bathing, dressing, eating). Insurance Insurance reviewed Visit number: 11 POC 07/24 supervising PT [facility] Subject[facility] Patient reports:. Pain in left ankle today when she walks. 3-12/16. States that she has less pain in the bottom of her foot and her foot pain is in her left ankle today. Pain level the same post treatment. Patient has a F/U visit with her surgeon tomorrow. Precautions: weight bearing restrictions: PWBing LLE with CAM boot, will transfer to full WBAT/brace transition around week 10 pending x-ray update. Fall Risk: low L trimalleolar ankle fracture s/p repair with hardware 01/25/21 per script: balance training/proprioception , ROM/stretching, strengthening/stabiliza tion, joint mobilization, pain reduction, edema control, gait training, HEP, TENS, compression stockings/dressing, functional progression Now partial WBAT with LLE in CAM, will transition to full WBAT, possible brace transition around week 10 pending x-ray update. relevant med hx: L bunionectomy and hammer toe surgery, decreased resultant toe ROM . Treatment Time in clinic started at 11:02 am Time in clinic ended at 12:18 pm Total time in clinic is 46 minutes. Therapeutic exercise (40177): timed minutes 34, units 2 . *See Gait* *BRACE ON FOR ALL STANDING EX'S AND LEG PRESS* *Per report, patient can start full WB in cam boot on Apr 13 per tolerance) NuStep, seat 10 LE's only, Lv-2 x5' for L ankle ROM - with brace (X, both in use) Slant board 2 x 20 B L ankle AROM PF/DF, INV/EV, x20 ea L (P) DF stretch with purple flexband 10 x10 INV/EV stretch with purple flexband 5 x10 L ankle PRE: - PF, Blue band 2x12 (P, reps) - DF/ INV (more content not included)... Normal [employer] PT Progress Noteon 1 PT Progress Note Therapy Diagnosis Assessed Left ankle pain (719.47) (M25.572) Plan Goals: Goals set and discussed today. Pt will demonstrate independence and compliance with HEP and self management, by week 2 Activity Limitation: Increase LEFS to 60 or better for improved QOL, by week 6 Balance: SLS x 10 L for decreased fall risk, by week 8 Gait/Locomotion: Amb with normalized gait pattern without AD, without CAM boot (when permitted by MD) for return to PLOF, by week 8 Pain: Decrease max pain to less than or equal to 1/10 for improved QOL. , by week 8 Range Of Motion/Joint Mobility: L ankle AROM DF to 20 for ability to reciprocally stair climb with uni HR to enter house, by week 8 Strength: L ankle strength 5/5 throughout for ability to reciprocally stair climb with uni HR to enter house, by week 8 Planned interventions include: aquatic therapy, cryotherapy, edema control, education/instruction, gait training, home program, kinesiotaping, manual therapy, neuromuscular re-education, self care/home management, therapeutic activities and therapeutic exercises . progress WBing in // bars with CAM boot using scale, ankle ROM/strengthening per script, gait training per script, manual - potentially STM/IASTM to plantar fascia to decrease tightness. Frequency and duration: 2 time(s) a week, for 8 weeks, for 16 visits. Potential to achieve rehab goals is good Progress weight bearing ex's and gait next treatment for improved strength and stability for eventual gait without assistive device. - MA. Assessment Patient identified by name AND . Patient wore a mask during treatment d/t Covid-19 precautions. Treatment consisted of ther ex's for L ankle ROM and strength, Gait and manual therapy. Patient ambulates with one crutch on R and leans to R with decreased heel strike, toe off, hip and knee flexion. Reviewed proper gait at length in // bars. HEP progressed today and handouts given. Adult Risk Screening There are no spiritual/cultural practices/values/needs that are important to know Initial Fall Risk Screening: JOHANNA has fallen in the last 6 months. She has fallen due to stepped outisde of back door. Her fall resulted in the following injury: . JOHANNA does not have a fear of falling. She needs assistance with . Needs assistance walking in her home. She needs assistance in an unfamiliar setting. The patient is using an assistive device. Fall Risk Screening: Patient is identified as a fall risk. Care Plan: Low Risk: Environmental for all patients and low risk patients: Offer assistance as needed or requested, keep environment free of obstacles, keep floor clean and dry, keep room lighting, wheelchair brakes on, bed/ stretcher locked and in low position if applicable, non-slip footwear if applicable, walker/cane available if needed, side rails up if applicable and pre-emptive toileting. Pain Scale: On a scale of 0 to 10, the patient rates the pain at 4. Please identify location of pain: L ankle. Pain Quality: aching, dull and throbbing. The pain makes it hard for the patient to do these things: walking, house work and self-care (bathing, dressing, eating). Insurance Insurance reviewed Visit number: 10 POC 06/23 supervising PT [facility] Subject[facility] Patient reports:. L ankle is painful today. She worked 3 hours prior to coming to therapy. Precautions: weight bearing restrictions: PWBing LLE with CAM boot, will transfer to full WBAT/brace transition around week 10 pending x-ray update. Fall Risk: low L trimalleolar ankle fracture s/p repair with hardware 01/25/21 per script: balance training/proprioception , ROM/stretching, strengthening/stabiliza tion, joint mobilization, pain reduction, edema control, gait training, HEP, TENS, compression stockings/dressing, functional progression Now partial WBAT with LLE in CAM, will transition to full WBAT, possible brace transition around week 10 pending x-ray update. relevant med hx: L bunionectomy and hammer toe surgery, decreased resultant toe ROM . Treatment Time in clinic started at 11:35 am Time in clinic ended at 12:30 pm Total time in clinic is 55 minutes. Total timed code time is 53 minutes. Therapeutic exercise (53501): timed minutes 23, units 2 . *See Gait* *Per report, patient can start full WB in cam boot on Apr 13 per tolerance) NuStep, seat 10 LE's only, Lv-2 x5' for L ankle ROM - with brace (P) Slant board 2 x 20 B L ankle AROM PF/DF, INV/EV, 2x10 ea L DF stretch with purple flexband 10 x10 INV/EV stretch with purple flexband 5 x10 L ankle PRE: - PF, Blue band 2x10 - DF/ INV/ EV [place] band 2x10 Seated fitter board w/ 2.5 insert: PF/DR 2 x10, INV/EV 2x10 FWD Step ups 6 steps L x10 (P) L lateral step ups (A) B standing heel raises (A) Supine leg press, light weight (A) - Lateral weight shifting in parallel bars with CAM boot L to 120 lbs wb'ing x 10 EO, x10 EO fwd with R foot on green step (pt has permission to be 75% WBing (more content not included)... [facility] PT Progress Note No report was sent [facility] PT Progress Noteon PT Progress Note Therapy Diagnosis Assessed Left ankle pain (719.47) (M25.572) Plan Goals: Goals set and discussed today. Pt will demonstrate independence and compliance with HEP and self management, by week 2 Activity Limitation: Increase LEFS to 60 or better for improved QOL, by week 6 Balance: SLS x 10 L for decreased fall risk, by week 8 Gait/Locomotion: Amb with normalized gait pattern without AD, without CAM boot (when permitted by MD) for return to PLOF, by week 8 Pain: Decrease max pain to less than or equal to 1/10 for improved QOL. , by week 8 Range Of Motion/Joint Mobility: L ankle AROM DF to 20 for ability to reciprocally stair climb with uni HR to enter house, by week 8 Strength: L ankle strength 5/5 throughout for ability to reciprocally stair climb with uni HR to enter house, by week 8 Planned interventions include: aquatic therapy, cryotherapy, edema control, education/instruction, gait training, home program, kinesiotaping, manual therapy, neuromuscular re-education, self care/home management, therapeutic activities and therapeutic exercises . progress WBing in // bars with CAM boot using scale, ankle ROM/strengthening per script, gait training per script, manual - potentially STM/IASTM to plantar fascia to decrease tightness. Frequency and duration: 2 time(s) a week, for 8 weeks, for 16 visits. Potential to achieve rehab goals is good Continue with left foot ROM/strength to improve ambulation/balance. Progress with POC, as tolerated. Assessment Fair tolerance with seated stretches and ankle 4-ways. No c/o increased sx.'s noted. Trial step ups and slant board this date which patient notes some soreness but tolerable. Trial IASTM per plan, to plantar fascia to decrease tightness. Response to treatment: no change in pain. Patient was able to complete today's treatment with some difficulty. Adult Risk Screening There are no spiritual/cultural practices/values/needs that are important to know Initial Fall Risk Screening: JOHANNA has fallen in the last 6 months. She has fallen due to stepped outisde of back door. Her fall resulted in the following injury: . JOHANNA has a fear of falling. She needs assistance with . Needs assistance walking in her home. She needs assistance in an unfamiliar setting. The patient is using an assistive device. Fall Risk Screening: Patient is identified as a fall risk. Care Plan: Low Risk: Environmental for all patients and low risk patients: Offer assistance as needed or requested, keep environment free of obstacles, keep floor clean and dry, keep room lighting, wheelchair brakes on, bed/ stretcher locked and in low position if applicable, non-slip footwear if applicable, walker/cane available if needed, side rails up if applicable and pre-emptive toileting. Pain Scale: On a scale of 0 to 10, the patient rates the pain at 0. Please identify location of pain: L ankle. The pain makes it hard for the patient to do these things: walking, house work and self-care (bathing, dressing, eating). Insurance Insurance reviewed Visit number: 9 POC 05/24 supervising PT [facility] Patient reports:. Pt. is wearing soft ankle brace today. Pt. c/o 2/10 soreness. She went to work today and was walking some earlier. Home program performing as directed: Yes. Precautions: weight bearing restrictions: PWBing LLE with CAM boot, will transfer to full WBAT/brace transition around week 10 pending x-ray update. Fall Risk: low L trimalleolar ankle fracture s/p repair with hardware 01/25/21 per script: balance training/proprioception , ROM/stretching, strengthening/stabiliza tion, joint mobilization, pain reduction, edema control, gait training, HEP, TENS, compression stockings/dressing, functional progression Now partial WBAT with LLE in CAM, will transition to full WBAT, possible brace transition around week 10 pending x-ray update. relevant med hx: L bunionectomy and hammer toe surgery, decreased resultant toe ROM . Treatment Time in clinic started at 10:45 am Time in clinic ended at 11:28 am Total time in clinic is 43 minutes. Total timed code time is 41 minutes. Therapeutic exercise (77850): timed minutes 33, units 2 . *Per report, patient can start full WB in cam boot on Apr 13 per tolerance) - NuStep, seat 10 UE/LE's, Lv-1 x5' for L ankle ROM - without boot - Lateral weight shifting in parallel bars with CAM boot L to 120 lbs wb'ing x 10 EO, x10 EO fwd with R foot on green step (pt has permission to be 75% WBing (X) -Weight shifting in // bars with boot on, full WB x10 ea direction - L ankle AROM PF/DF 2 x 10, inv/eversion 2 x 10 -ABC's x1 cycle DF stretch with purple flexband 10 x10 INV/EV stretch with purple flexband 5 x10 L ankle PRE: - PF, Blue band 2x10 (P, resistance) - DF/ INV/ EV [place] band 2x10 (P resistance) towel crunchs 2x10 Seated fitter board w/ 2.5 insert: PF/DR 2 x10, INV/EV 2x10 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 Normal [facility] [employer] [facility] PT Progress Noteon 1 PT Progress Note Therapy Diagnosis Assessed Left ankle pain (719.47) (M25.572) Plan Goals: Goals set and discussed today. Pt will demonstrate independence and compliance with HEP and self management, by week 2 Activity Limitation: Increase LEFS to 60 or better for improved QOL, by week 6 Balance: SLS x 10 L for decreased fall risk, by week 8 Gait/Locomotion: Amb with normalized gait pattern without AD, without CAM boot (when permitted by MD) for return to PLOF, by week 8 Pain: Decrease max pain to less than or equal to 1/10 for improved QOL. , by week 8 Range Of Motion/Joint Mobility: L ankle AROM DF to 20 for ability to reciprocally stair climb with uni HR to enter house, by week 8 Strength: L ankle strength 5/5 throughout for ability to reciprocally stair climb with uni HR to enter house, by week 8 Planned interventions include: aquatic therapy, cryotherapy, edema control, education/instruction, gait training, home program, kinesiotaping, manual therapy, neuromuscular re-education, self care/home management, therapeutic activities and therapeutic exercises . progress WBing in // bars with CAM boot using scale, ankle ROM/strengthening per script, gait training per script, manual - potentially STM/IASTM to plantar fascia to decrease tightness. Frequency and duration: 2 time(s) a week, for 8 weeks, for 16 visits. Potential to achieve rehab goals is good Continue with left foot ROM/strength to improve ambulation/balance. Progress with POC, as tolerated. Assessment Fair tolerance with TE. Per reports patient started putting full weight through the left LE. She continues to wear the boot. Pt. c/o soreness with ABC's. Increased resistance with resisted ankle 4-ways. Pt. continues with tightness with the PF with STM, adhesions noted. Assisted patient with fitting ankle brace at end of session (states per MD that she can try brace if tolerated). Pt. left the boot on at end of session knowing she has some uneven ground to walk on. Response to treatment: decreased pain. Patient was able to complete today's treatment with some difficulty. Adult Risk Screening There are no spiritual/cultural practices/values/needs that are important to know Initial Fall Risk Screening: JOHANNA has fallen in the last 6 months. She has fallen due to stepped outisde of back door. Her fall resulted in the following injury: . JOHANNA has a fear of falling. She needs assistance with . Needs assistance walking in her home. She needs assistance in an unfamiliar setting. The patient is using an assistive device. Fall Risk Screening: Patient is identified as a fall risk. Care Plan: Low Risk: Environmental for all patients and low risk patients: Offer assistance as needed or requested, keep environment free of obstacles, keep floor clean and dry, keep room lighting, wheelchair brakes on, bed/ stretcher locked and in low position if applicable, non-slip footwear if applicable, walker/cane available if needed, side rails up if applicable and pre-emptive toileting. Pain Scale: On a scale of 0 to 10, the patient rates the pain at 0. Please identify location of pain: L ankle. The pain makes it hard for the patient to do these things: walking, house work and self-care (bathing, dressing, eating). Insurance Insurance reviewed Visit number: 8 POC 04/23 supervising PT [facility] Subject[facility] Patient reports:. Pt. states she is practicing putting full weight through her left ankle/foot. No c/o sx.'s at this time. Pt. states she was using her knee scooter on Friday around the house and a bolt broke on it which caused her to fall into the couch. Pt. states foot was sore; foot is feeling better today. Pt. brought her ankle brace which she states she can switch into it as tolerated per MD. Home program performing as directed: Yes. Precautions: weight bearing restrictions: PWBing LLE with CAM boot, will transfer to full WBAT/brace transition around week 10 pending x-ray update. Fall Risk: low L trimalleolar ankle fracture s/p repair with hardware 01/25/21 per script: balance training/proprioception , ROM/stretching, strengthening/stabiliza tion, joint mobilization, pain reduction, edema control, gait training, HEP, TENS, compression stockings/dressing, functional progression Now partial WBAT with LLE in CAM, will transition to full WBAT, possible brace transition around week 10 pending x-ray update. relevant med hx: L bunionectomy and hammer toe surgery, decreased resultant toe ROM . Treatment Time in clinic started at 8:30 pm Time in clinic ended at 9:17 am Total time in clinic is 47 minutes. Total timed code time is 41 minutes. Therapeutic exercise (84305): timed minutes 33, units 2 . *Per report, patient can start full WB in cam boot on Apr 13 per tolerance) - NuStep, seat 10 UE/LE's, Lv-1 x5' for L ankle ROM - without boot - Lateral weight shifting in parallel bars with CAM boot L to 120 lbs wb'ing x 10 EO, x10 EO fwd with R foot on green step (more content not included)... Normal [facility] Progress Noteon 1 PT Progress Note Therapy Diagnosis Assessed Left ankle pain (719.47) (M25.572) Plan Goals: Goals set and discussed today. Pt will demonstrate independence and compliance with HEP and self management, by week 2 Activity Limitation: Increase LEFS to 60 or better for improved QOL, by week 6 Balance: SLS x 10 L for decreased fall risk, by week 8 Gait/Locomotion: Amb with normalized gait pattern without AD, without CAM boot (when permitted by MD) for return to PLOF, by week 8 Pain: Decrease max pain to less than or equal to 1/10 for improved QOL. , by week 8 Range Of Motion/Joint Mobility: L ankle AROM DF to 20 for ability to reciprocally stair climb with uni HR to enter house, by week 8 Strength: L ankle strength 5/5 throughout for ability to reciprocally stair climb with uni HR to enter house, by week 8 Planned interventions include: aquatic therapy, cryotherapy, edema control, education/instruction, gait training, home program, kinesiotaping, manual therapy, neuromuscular re-education, self care/home management, therapeutic activities and therapeutic exercises . progress WBing in // bars with CAM boot using scale, ankle ROM/strengthening per script, gait training per script, manual - potentially STM/IASTM to plantar fascia to decrease tightness. Frequency and duration: 2 time(s) a week, for 8 weeks, for 16 visits. Potential to achieve rehab goals is good Continue with left foot ROM/strength to improve ambulation/balance. Progress with POC, as tolerated. Assessment Fair tolerance with TE. About 75% with weight shifts today regarding the left LE. Increased DF to blue Thera-Band which patient tolerated well. STM to foot with tenderness and tightness noted. Relief noted following session. Response to treatment: decreased pain. Patient was able to complete today's treatment with some difficulty. Adult Risk Screening There are no spiritual/cultural practices/values/needs that are important to know Initial Fall Risk Screening: JOHANNA has fallen in the last 6 months. She has fallen due to stepped outisde of back door. Her fall resulted in the following injury: . JOHANNA has a fear of falling. She needs assistance with . Needs assistance walking in her home. She needs assistance in an unfamiliar setting. The patient is using an assistive device. Fall Risk Screening: Patient is identified as a fall risk. Care Plan: Low Risk: Environmental for all patients and low risk patients: Offer assistance as needed or requested, keep environment free of obstacles, keep floor clean and dry, keep room lighting, wheelchair brakes on, bed/ stretcher locked and in low position if applicable, non-slip footwear if applicable, walker/cane available if needed, side rails up if applicable and pre-emptive toileting. Pain Scale: On a scale of 0 to 10, the patient rates the pain at 0. Please identify location of pain: L ankle. The pain makes it hard for the patient to do these things: walking, house work and self-care (bathing, dressing, eating). Insurance Insurance reviewed Visit number: 7 POC 03/23 supervising PT [facility] Subjective Patient reports:. Pt. c/o 09/17 pain. States she's using her left leg more during ambulation. Home program performing as directed: Yes. Precautions: weight bearing restrictions: PWBing LLE with CAM boot, will transfer to full WBAT/brace transition around week 10 pending x-ray update. Fall Risk: low L trimalleolar ankle fracture s/p repair with hardware 01/25/21 per script: balance training/proprioception , ROM/stretching, strengthening/stabiliza tion, joint mobilization, pain reduction, edema control, gait training, HEP, TENS, compression stockings/dressing, functional progression Now partial WBAT with LLE in CAM, will transition to full WBAT, possible brace transition around week 10 pending x-ray update. relevant med hx: L bunionectomy and hammer toe surgery, decreased resultant toe ROM . Treatment Time in clinic started at 11:30 am Time in clinic ended at 12:16 pm Total time in clinic is 46 minutes. Total timed code time is 43 minutes. Therapeutic exercise (23313): timed minutes 28, units 2 . 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 Manual Therapy (23806): timed minutes 15, units 1 . PROM into DF 10 x 5 STM/ to plantar fascia ASTM (A, if (more content not included)... Normal [facility] PT Progress Noteon 1 PT Progress Note Therapy Diagnosis Assessed Left ankle pain (719.47) (M25.572) Plan Goals: Goals set and discussed today. Pt will demonstrate independence and compliance with HEP and self management, by week 2 Activity Limitation: Increase LEFS to 60 or better for improved QOL, by week 6 Balance: SLS x 10 L for decreased fall risk, by week 8 Gait/Locomotion: Amb with normalized gait pattern without AD, without CAM boot (when permitted by MD) for return to PLOF, by week 8 Pain: Decrease max pain to less than or equal to 1/10 for improved QOL. , by week 8 Range Of Motion/Joint Mobility: L ankle AROM DF to 20 for ability to reciprocally stair climb with uni HR to enter house, by week 8 Strength: L ankle strength 5/5 throughout for ability to reciprocally stair climb with uni HR to enter house, by week 8 Planned interventions include: aquatic therapy, cryotherapy, edema control, education/instruction, gait training, home program, kinesiotaping, manual therapy, neuromuscular re-education, self care/home management, therapeutic activities and therapeutic exercises . progress WBing in // bars with CAM boot using scale, ankle ROM/strengthening per script, gait training per script, manual - potentially STM/IASTM to plantar fascia to decrease tightness. Frequency and duration: 2 time(s) a week, for 8 weeks, for 16 visits. Potential to achieve rehab goals is good Continue with left foot ROM/strength to improve ambulation/balance. Progress with POC, as tolerated. Assessment Patient tolerated treatment without pain. Reports tightness in plantar region of left foot. Patient has good form/understanding with ther-ex and reports compliance with HEP. Continue with left foot ROM/ strength to improve flexibility/ambulation/ balance. Adult Risk Screening There are no spiritual/cultural practices/values/needs that are important to know Initial Fall Risk Screening: JOHANNA has fallen in the last 6 months. She has fallen due to stepped outisde of back door. Her fall resulted in the following injury: . JOHANNA has a fear of falling. She needs assistance with . Needs assistance walking in her home. She needs assistance in an unfamiliar setting. The patient is using an assistive device. Fall Risk Screening: Patient is identified as a fall risk. Care Plan: Low Risk: Environmental for all patients and low risk patients: Offer assistance as needed or requested, keep environment free of obstacles, keep floor clean and dry, keep room lighting, wheelchair brakes on, bed/ stretcher locked and in low position if applicable, non-slip footwear if applicable, walker/cane available if needed, side rails up if applicable and pre-emptive toileting. Pain Scale: On a scale of 0 to 10, the patient rates the pain at 0. Please identify location of pain: L ankle. The pain makes it hard for the patient to do these things: walking, house work and self-care (bathing, dressing, eating). Insurance Insurance reviewed Visit number: 6 POC 01/21 supervising PT [facility] Subjective Patient reports:. Patient reports no falls and no to all covid questions. Patient reports 0/10 pain today. Patient ambulating with B aux. crutches and cam boot on left foot. Precautions: weight bearing restrictions: PWBing LLE with CAM boot, will transfer to full WBAT/brace transition around week 10 pending x-ray update. Fall Risk: low L trimalleolar ankle fracture s/p repair with hardware 01/25/21 per script: balance training/proprioception , ROM/stretching, strengthening/stabiliza tion, joint mobilization, pain reduction, edema control, gait training, HEP, TENS, compression stockings/dressing, functional progression Now partial WBAT with LLE in CAM, will transition to full WBAT, possible brace transition around week 10 pending x-ray update. relevant med hx: L bunionectomy and hammer toe surgery, decreased resultant toe ROM . Treatment Time in clinic started at 12:00 pm Time in clinic ended at 12:45 pm Total time in clinic is 45 minutes. Total timed code time is 40 minutes. Therapeutic exercise (31392): timed minutes 30, units 2 . 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 Manual Therapy (45849): timed minutes 15, units 1 . PROM into DF 10 x 5 STM/ to plantar fascia ASTM (A, if needed). Provided today: education . 04/02 (more content not included)... Normal [employer] PT Progress Noteon PT Progress Note Therapy Diagnosis Assessed Left ankle pain (719.47) (M25.572) Plan Goals: Goals set and discussed today. Pt will demonstrate independence and compliance with HEP and self management, by week 2 Activity Limitation: Increase LEFS to 60 or better for improved QOL, by week 6 Balance: SLS x 10 L for decreased fall risk, by week 8 Gait/Locomotion: Amb with normalized gait pattern without AD, without CAM boot (when permitted by MD) for return to PLOF, by week 8 Pain: Decrease max pain to less than or equal to 1/10 for improved QOL. , by week 8 Range Of Motion/Joint Mobility: L ankle AROM DF to 20 for ability to reciprocally stair climb with uni HR to enter house, by week 8 Strength: L ankle strength 5/5 throughout for ability to reciprocally stair climb with uni HR to enter house, by week 8 Planned interventions include: aquatic therapy, cryotherapy, edema control, education/instruction, gait training, home program, kinesiotaping, manual therapy, neuromuscular re-education, self care/home management, therapeutic activities and therapeutic exercises . progress WBing in // bars with CAM boot using scale, ankle ROM/strengthening per script, gait training per script, manual - potentially STM/IASTM to plantar fascia to decrease tightness. Frequency and duration: 2 time(s) a week, for 8 weeks, for 16 visits. Potential to achieve rehab goals is good Plan to continue with POC per orders and PT cat for improved tolerance to WB'ing and ROM for eventual gait without cam boot. - MA. Assessment Patient identified by name AND . Patient wore a mask during treatment d/t Covid-19 precautions. Treatment consisted of ther ex's for left ankle ROM and strengthening, no greater than 75% WB'ing with cam boot. Patient with decreased tenderness with STW today. Adult Risk Screening There are no spiritual/cultural practices/values/needs that are important to know Initial Fall Risk Screening: JOHANNA has fallen in the last 6 months. She has fallen due to stepped outisde of back door. Her fall resulted in the following injury: . JOHANNA has a fear of falling. She needs assistance with . Needs assistance walking in her home. She needs assistance in an unfamiliar setting. The patient is using an assistive device. Fall Risk Screening: Patient is identified as a fall risk. Care Plan: Low Risk: Environmental for all patients and low risk patients: Offer assistance as needed or requested, keep environment free of obstacles, keep floor clean and dry, keep room lighting, wheelchair brakes on, bed/ stretcher locked and in low position if applicable, non-slip footwear if applicable, walker/cane available if needed, side rails up if applicable and pre-emptive toileting. Pain Scale: On a scale of 0 to 10, the patient rates the pain at 0. Please identify location of pain: L ankle. The pain makes it hard for the patient to do these things: walking, house work and self-care (bathing, dressing, eating). Insurance Insurance reviewed Visit number: 5 POC 01/21 supervising PT [facility] Subjective Patient reports:. Denies L ankle pain pretreatment. Bottom of foot was sore after STW yesterday. Precautions: weight bearing restrictions: PWBing LLE with CAM boot, will transfer to full WBAT/brace transition around week 10 pending x-ray update. Fall Risk: low L trimalleolar ankle fracture s/p repair with hardware 01/25/21 per script: balance training/proprioception , ROM/stretching, strengthening/stabiliza tion, joint mobilization, pain reduction, edema control, gait training, HEP, TENS, compression stockings/dressing, functional progression Now partial WBAT with LLE in CAM, will transition to full WBAT, possible brace transition around week 10 pending x-ray update. relevant med hx: L bunionectomy and hammer toe surgery, decreased resultant toe ROM . Treatment Time in clinic started at 11:35 am Time in clinic ended at 12:25 pm Total time in clinic is 50 minutes. Total timed code time is 48 minutes. Therapeutic exercise (68460): timed minutes 33, units 2 . 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 Manual Therapy (25060): timed minutes 15, units 1 . PROM into DF 10 x 5 STM/ to plantar fascia ASTM (A, if needed). Provided today: education . 7/26/21 Handout given for L ankle PRE's (more content not included)... Normal [facility] PT Progress Noteon 1 PT Progress Note Therapy Diagnosis Assessed Left ankle pain (719.47) (M25.572) Plan Goals: Goals set and discussed today. Pt will demonstrate independence and compliance with HEP and self management, by week 2 Activity Limitation: Increase LEFS to 60 or better for improved QOL, by week 6 Balance: SLS x 10 L for decreased fall risk, by week 8 Gait/Locomotion: Amb with normalized gait pattern without AD, without CAM boot (when permitted by MD) for return to PLOF, by week 8 Pain: Decrease max pain to less than or equal to 1/10 for improved QOL. , by week 8 Range Of Motion/Joint Mobility: L ankle AROM DF to 20 for ability to reciprocally stair climb with uni HR to enter house, by week 8 Strength: L ankle strength 5/5 throughout for ability to reciprocally stair climb with uni HR to enter house, by week 8 Planned interventions include: aquatic therapy, cryotherapy, edema control, education/instruction, gait training, home program, kinesiotaping, manual therapy, neuromuscular re-education, self care/home management, therapeutic activities and therapeutic exercises . progress WBing in // bars with CAM boot using scale, ankle ROM/strengthening per script, gait training per script, manual - potentially STM/IASTM to plantar fascia to decrease tightness. Frequency and duration: 2 time(s) a week, for 8 weeks, for 16 visits. Potential to achieve rehab goals is good Plan to continue with WB'inb, ex's and ROM per Dr. ivy for improved gait with least restrictive device and ankle support as allowed. - MA. Assessment Patient identified by name AND . Patient wore a mask during treatment d/t Covid-19 precautions. Treatment consisted of ther ex's and manual therapy. Weight shifts to 75% unloading. Added thera band ankle PRE's to HEP and orange and peach bands given. Patient uncomfortable with doing ankle circles, so these wre held this date. STM done to plantar surface of L foot with tenderness noted in ball of foot and arch of foot. Patient reporting no pain, just soreness at the end of treatment. Adult Risk Screening There are no spiritual/cultural practices/values/needs that are important to know Initial Fall Risk Screening: JOHANNA has fallen in the last 6 months. She has fallen due to stepped outisde of back door. Her fall resulted in the following injury: . JOHANNA has a fear of falling. She needs assistance with . Needs assistance walking in her home. She needs assistance in an unfamiliar setting. The patient is using an assistive device. Fall Risk Screening: Patient is identified as a fall risk. Care Plan: Low Risk: Environmental for all patients and low risk patients: Offer assistance as needed or requested, keep environment free of obstacles, keep floor clean and dry, keep room lighting, wheelchair brakes on, bed/ stretcher locked and in low position if applicable, non-slip footwear if applicable, walker/cane available if needed, side rails up if applicable and pre-emptive toileting. Pain Scale: On a scale of 0 to 10, the patient rates the pain at 0. Please identify location of pain: L ankle. The pain makes it hard for the patient to do these things: walking, house work and self-care (bathing, dressing, eating). Insurance Insurance reviewed Visit number: 4 POC 12/22 supervising PT [facility] Subjective Patient reports:. Patient denied L ankle pain pretreatment. Patient told this therapist at last session that the did not want her to do any ankle circles for ROM. Her evaluating therapist called and spoke to music typographer approximately 5 min prior to patient's appointment and music typographer read notes that said progress ROM as tolerated with no restrictions noted. Patient not comfortable with this stating the told her she was not suppose to do marshall motions. Home program performing as directed: Yes. Precautions: weight bearing restrictions: PWBing LLE with CAM boot, will transfer to full WBAT/brace transition around week 10 pending x-ray update. Fall Risk: low L trimalleolar ankle fracture s/p repair with hardware 01/25/21 per script: balance training/proprioception , ROM/stretching, strengthening/stabiliza tion, joint mobilization, pain reduction, edema control, gait training, HEP, TENS, compression stockings/dressing, functional progression Now partial WBAT with LLE in CAM, will transition to full WBAT, possible brace transition around week 10 pending x-ray update. relevant med hx: L bunionectomy and hammer toe surgery, decreased resultant toe ROM . Treatment Time in clinic started at 1:15 pm Time in clinic ended at 2:20 pm Total time in clinic is 65 minutes. Total timed code time is 60 minutes. Therapeutic exercise (02450): timed minutes 40, units 3 . - NuStep, seat 10 UE/LE's, Lv-1 x10' for L ankle ROM (N) - Lateral weight shifting in parallel bars with CAM boot L to 120 lbs wb'ing x 10 EO, x10 EO fwd with R foot on green step (pt has permission to be 75% WBing - L ankle AROM PF/DF 2 x 10, inv/emerita (more content not included)... Normal [employer] [facility] PT Progress Noteon 1 PT Progress Note Therapy Diagnosis Assessed Left ankle pain (719.47) (M25.572) Plan Goals: Goals set and discussed today. Pt will demonstrate independence and compliance with HEP and self management, by week 2 Activity Limitation: Increase LEFS to 60 or better for improved QOL, by week 6 Balance: SLS x 10 L for decreased fall risk, by week 8 Gait/Locomotion: Amb with normalized gait pattern without AD, without CAM boot (when permitted by MD) for return to PLOF, by week 8 Pain: Decrease max pain to less than or equal to 1/10 for improved QOL. , by week 8 Range Of Motion/Joint Mobility: L ankle AROM DF to 20 for ability to reciprocally stair climb with uni HR to enter house, by week 8 Strength: L ankle strength 5/5 throughout for ability to reciprocally stair climb with uni HR to enter house, by week 8 Planned interventions include: aquatic therapy, cryotherapy, edema control, education/instruction, gait training, home program, kinesiotaping, manual therapy, neuromuscular re-education, self care/home management, therapeutic activities and therapeutic exercises . progress WBing in // bars with CAM boot using scale, ankle ROM/strengthening per script, gait training per script, manual - potentially STM/IASTM to plantar fascia to decrease tightness. Frequency and duration: 2 time(s) a week, for 8 weeks, for 16 visits. Potential to achieve rehab goals is good Plan to add band ex's to HEP next session for improved strength for ease of full WB'ing when allows and add STM to plantar surface of L foot for decreased restrictions and ease of motion - MA. Assessment Patient identified by name AND . Patient wore a mask during treatment d/t Covid-19 precautions. Treatment consisted of ther ex's for increased WB and weight shifts with scale, followed by L ankle ROM and strengthening ex's. Good tolerance; no increase in pain. Adult Risk Screening There are no spiritual/cultural practices/values/needs that are important to know Initial Fall Risk Screening: JOHANNA has fallen in the last 6 months. She has fallen due to stepped outisde of back door. Her fall resulted in the following injury: . JOHANNA has a fear of falling. She needs assistance with . Needs assistance walking in her home. She needs assistance in an unfamiliar setting. The patient is using an assistive device. Fall Risk Screening: Patient is identified as a fall risk. Care Plan: Low Risk: Environmental for all patients and low risk patients: Offer assistance as needed or requested, keep environment free of obstacles, keep floor clean and dry, keep room lighting, wheelchair brakes on, bed/ stretcher locked and in low position if applicable, non-slip footwear if applicable, walker/cane available if needed, side rails up if applicable and pre-emptive toileting. Pain Scale: On a scale of 0 to 10, the patient rates the pain at 1. Please identify location of pain: L ankle. Pain Quality: aching. The pain makes it hard for the patient to do these things: walking, house work and self-care (bathing, dressing, eating). Insurance Insurance reviewed Visit number: 3 POC 11/21 supervising PT [facility] Subjective Patient reports:. Patient reports she saw the surgeon yesterday and was told she can progress to 75% WB'in on L LE. Reports she has some aching on lateral side of ankle @09/17. Precautions: weight bearing restrictions: PWBing LLE with CAM boot, will transfer to full WBAT/brace transition around week 10 pending x-ray update. Fall Risk: low L trimalleolar ankle fracture s/p repair with hardware 01/25/21 per script: balance training/proprioception , ROM/stretching, strengthening/stabiliza tion, joint mobilization, pain reduction, edema control, gait training, HEP, TENS, compression stockings/dressing, functional progression Now partial WBAT with LLE in CAM, will transition to full WBAT, possible brace transition around week 10 pending x-ray update. relevant med hx: L bunionectomy and hammer toe surgery, decreased resultant toe ROM . Treatment Time in clinic started at 1:17 pm Time in clinic ended at 2:00 pm Total time in clinic is 43 minutes. Total timed code time is 40 minutes. Therapeutic exercise (00517): timed minutes 40, units 3 . 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 Manual Therapy (23818): timed minutes 3, units 0 . PROM into DF 5 x10 STM/IASTM to plantar fascia (A). 'Scores and Scales' (more content not included)... Normal [facility] Therapy Communicationon 03-09 Therapy Communication No report was sent [facility] PT Progress Noteon PT Progress Note Therapy Diagnosis Assessed Left ankle pain (719.47) (M25.572) Plan Goals: Goals set and discussed today. Pt will demonstrate independence and compliance with HEP and self management, by week 2 Activity Limitation: Increase LEFS to 60 or better for improved QOL, by week 6 Balance: SLS x 10 L for decreased fall risk, by week 8 Gait/Locomotion: Amb with normalized gait pattern without AD, without CAM boot (when permitted by MD) for return to PLOF, by week 8 Pain: Decrease max pain to less than or equal to 1/10 for improved QOL. , by week 8 Range Of Motion/Joint Mobility: L ankle AROM DF to 20 for ability to reciprocally stair climb with uni HR to enter house, by week 8 Strength: L ankle strength 5/5 throughout for ability to reciprocally stair climb with uni HR to enter house, by week 8 Planned interventions include: aquatic therapy, cryotherapy, edema control, education/instruction, gait training, home program, kinesiotaping, manual therapy, neuromuscular re-education, self care/home management, therapeutic activities and therapeutic exercises . progress WBing in // bars with CAM boot using scale, ankle ROM/strengthening per script, gait training per script, manual - potentially STM/IASTM to plantar fascia to decrease tightness. Frequency and duration: 2 time(s) a week, for 8 weeks, for 16 visits. Potential to achieve rehab goals is good Plan to continue with progressions of ROM and ankle strengthening as well as WB as progressed by MD to improve ease/tolerance with functional/community ambulation. Assessment Patient ID confirmed using Name and . Patient wearing mask throughout session today d/t COVID-19 precautions. Patient with good tolerance to treatment, no c/o increased pain/discomfort in clinic. Emphasis this date on ROM and improving WB acceptance and compliance with 50% PWB. Adult Risk Screening There are no spiritual/cultural practices/values/needs that are important to know Initial Fall Risk Screening: JOHANNA has fallen in the last 6 months. She has fallen due to stepped outisde of back door. Her fall resulted in the following injury: . JOHANNA has a fear of falling. She needs assistance with . Needs assistance walking in her home. She needs assistance in an unfamiliar setting. The patient is using an assistive device. Fall Risk Screening: Patient is identified as a fall risk. Care Plan: Low Risk: Environmental for all patients and low risk patients: Offer assistance as needed or requested, keep environment free of obstacles, keep floor clean and dry, keep room lighting, wheelchair brakes on, bed/ stretcher locked and in low position if applicable, non-slip footwear if applicable, walker/cane available if needed, side rails up if applicable and pre-emptive toileting. Pain Scale: On a scale of 0 to 10, the patient rates the pain at 0. Please identify location of pain: L ankle. Insurance Insurance reviewed Visit number: 2 POC 10/24 supervising PT [facility] Subjective Patient reports:. denies pain upon arrival, still having dificulty with WBing. Home program performing as directed: Yes. Precautions: weight bearing restrictions: PWBing LLE with CAM boot, will transfer to full WBAT/brace transition around week 10 pending x-ray update. Fall Risk: low L trimalleolar ankle fracture s/p repair with hardware 01/25/21 per script: balance training/proprioception , ROM/stretching, strengthening/stabiliza tion, joint mobilization, pain reduction, edema control, gait training, HEP, TENS, compression stockings/dressing, functional progression Now partial WBAT with LLE in CAM, will transition to full WBAT, possible brace transition around week 10 pending x-ray update. relevant med hx: L bunionectomy and hammer toe surgery, decreased resultant toe ROM . Treatment Time in clinic started at 1445 Time in clinic ended at 1530 Total time in clinic is 45 minutes. Total timed code time is 40 minutes. Therapeutic exercise (36565): timed minutes 40, units 3 . 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 'Scores and Scales' Signatures Electronically signed by : Antony Tian, SCRIPT ARTIST; Apr 03 2021 1:36PM EST (Author) Electronically signed by : Nori Osborn, PT; Apr 05 2021 8:41AM EST Normal [facility] PT Initial Evaluationon 03-08 PT Initial Evaluation Therapy Diagnosis Assessed Left ankle pain (719.47) (M25.572) Plan of Care Goals: Goals set and discussed today. Pt will demonstrate independence and compliance with HEP and self management, by week 2 Activity Limitation: Increase LEFS to 60 or better for improved QOL, by week 6 Balance: SLS x 10 L for decreased fall risk, by week 8 Gait/Locomotion: Amb with normalized gait pattern without AD, without CAM boot (when permitted by MD) for return to PLOF, by week 8 Pain: Decrease max pain to less than or equal to 1/10 for improved QOL. , by week 8 Range Of Motion/Joint Mobility: L ankle AROM DF to 20 for ability to reciprocally stair climb with uni HR to enter house, by week 8 Strength: L ankle strength 5/5 throughout for ability to reciprocally stair climb with uni HR to enter house, by week 8 Planned interventions include: aquatic therapy, cryotherapy, edema control, education/instruction, gait training, home program, kinesiotaping, manual therapy, neuromuscular re-education, self care/home management, therapeutic activities and therapeutic exercises . progress WBing in // bars with CAM boot using scale, ankle ROM/strengthening per script, gait training per script, manual - potentially STM/IASTM to plantar fascia to decrease tightness. Frequency and duration: 2 time(s) a week, for 8 weeks, for 16 visits. Potential to achieve rehab goals is good Plan of care was developed with input and agreement by the patient. Assessment Patient is a 60 year female who [...] session, patient reports no increased pain vs pre-evaluation. Clinical Presentation: Stable and/or uncomplicated characteristics. Level of Complexity: low Problem List: activity limitations, ADLs/IADLs/self care skills, balance, decreased functional level, decreased knowledge of HEP, fall risk, flexibility, gait/locomotion, pain, participation restrictions, posture, range of motion/joint mobility and strength. Reason For Visit Initial Evaluation . L trimalleolar ankle fracture s/p repair with hardware 01/25/21. Referred by: Dr. Dillon Adult Risk Screening There are no spiritual/cultural practices/values/needs that are important to know Initial Fall Risk Screening: JOHANNA has fallen in the last 6 months. She has fallen due to stepped outisde of back door. Her fall resulted in the following injury: . JOHANNA has a fear of falling. She needs assistance with . Needs assistance walking in her home. She needs assistance in an unfamiliar setting. The patient is using an assistive device. Fall Risk Screening: Patient is identified as a fall risk. Care Plan: Low Risk: Environmental for all patients and low risk patients: Offer assistance as needed or requested, keep environment free of obstacles, keep floor clean and dry, keep room lighting, wheelchair brakes on, bed/ stretcher locked and in low position if applicable, non-slip footwear if applicable, walker/cane available if needed, side rails up if applicable and pre-emptive toileting. Pain Scale: On a scale of 0 to 10, the patient rates the pain at 0. Please identify location of pain: L ankle. Insurance Insurance reviewed Visit number: 1 POC 09/23 supervising PT [facility] Subjective Current Episode of Functional Impairment and/or Pain Date of onset: 01/24/21 Date of surgery: 01/25/21 Mechanism of Injury:. Fell on 01/24 when mis-stepping into mud room. Was unable to get up on her own, called , who brought her to ED. Had x-rays, CT scan in ED that showed fracture. Gave medicine to set the fracture in the ED, admitted to hospital, had surgery 01/25/21 to stabilize L trimalleolar fracture (hardware placed). Had splint and soft brace immediately after surgery, NWBing for 6 weeks. At MD follow-up 03/09/21 given permission to WB 50% with CAM boot. Will follow-up with surgeon 03/29/21. Pain is medial/lateral L ankle, throbbing in nature. Numbness on top of foot. 0/10 pain at rest, 2/10 pain in past week. Aggravating activities: standing, walking, having foot in dependent position. Alleviating activities: rest, ice, elevation, Tylenol. Pain does not disturb sleep at night. Previous foot surgeries: hammer toe, bunionectomy 2016. Med hx: HTN, migraines, high cholestrol Surgical hx: 01/25/21 L ankle s (more content not included)... Normal [facility] Surgical Tissue Examon 08-04 Surgical Tissue Exam Test performed at [facility] [place] [id number]: JOHANNA DOVE [id number] REQUESTING: MORE LUNA MDFINAL DIAGNOSIS:A) GASTRIC ANTRUM, BIOPSIES - MILD CHRONIC GASTRITIS. HELICOBACTERORGANISMS ARE NOT IDENTIFIED ON AN H&E STAIN. SEE COMMENT.COMMENT: The histologic pattern of gastritis associated withHelicobacter organisms is not identified.B) GASTROESOPHAGEAL JUNCTION, BIOPSIES - MILD CHRONIC ESOPHAGITIS.GASTRIC TYPE GLANDULAR MUCOSA WITH CHRONIC INFLAMMATION. NEGATIVE FORSPECIALIZED INTESTINAL METAPLASIA.OPERATIVE PROCEDURE: EGD with biopsy, colonoscopyCLINICAL INFORMATION: Noncardiac chest pain [R07.89], history of colonic polyps [Z86.010],gastroesophag eal reflux [K21.9], esophagitis [K20.9]GROSS DESCRIPTION:A) Antrum of stomach (H. pylori)Received in formalin labeled antrum of stomach is an irregular-shapedsegment of dawson soft tissue measuring 0.4 x 0.1 x 0.1 cm. The specimenis totally submitted in one cassette. Levels x 2.B) Esophagogastric biopsy (GE junction biopsy)Received in formalin labeled gastroesophageal junction are multiplesegments of dawson soft tissue aggregating to 0.6 x 0.1 x 0.1 cm. Thespecimen is totally submitted in one cassette. Levels x 2. ARH:alka DHALIWAL M.D., PATHOLOGIST(Electronic signature on file)Signed out: 08/06/2018 16:07PRINTED: 08/06/2018 Page 1 of 1 Normal [facility] Comment on above: Performed By: #### S URG ####[place] [address] Antinuclear Antibodyon 09-09 Antinuclear Antibody 0.3 U Normal <=1.0 (Negative) [facility] Comment on above: Result Comment: Test Performed by:[place] [address] Performed By: #### C BCDIF, C-3, C-4, CH50, DNADS, SANDRA, [id number], CARDABS ####Unless otherwise noted, all testing performed by [address] [phone]: [id number] Director: Wenceslao Perez M.D. Beta-2 Glycoprotein 1, IgAon 09-09-2017 Beta-2 Glycoprotein 1, IgA < 9.4 Normal <15.0 (Negative) [facility] Comment on above: Result Comment: Test Performed by:[address] [address] Performed By: #### C BCDIF, C-3, C-4, CH50, DNADS, SANDRA, [id number], CARDABS ####Unless otherwise noted, all testing performed by [address] [phone]: [id number] Director: Wenceslao Perez M.D. C-3 Complementon 09-09-2017 C-3 Complement 131.9 mg/dL Normal 73.0-183.0 [facility] Comment on above: Result Comment: [place] [address] Performed By: #### C BCDIF, C-3, C-4, CH50, DNADS, SANDRA, [id number], CARDABS ####Unless otherwise noted, all testing performed by [address] [phone]: [id number] Director: Wenceslao Perez M.D. C-4 Complementon 09-09-2017 C-4 Complement 28.3 mg/dL Normal 16.0-47.0 [facility] Comment on above: Result Comment: Test Performed by [facility] [id number] [place] [address] Performed By: #### C BCDIF, C-3, C-4, CH50, DNADS, SANDRA, [id number], CARDABS ####Unless otherwise noted, all testing performed by [address] [phone]: [id number] Director: Wenceslao Perez M.D. CBC and Differentialon 09-09 Basophils 0.4 % Invalid Interpretation Code [facility] Basophils 0.0 K/mcL Invalid Interpretation Code 0 - 0.2 [facility] Eosinophils 0.3 K/mcL Invalid Interpretation Code 0 - 0.5 [facility] Erythrocytes (RBC) 4.17 M/mcL Invalid Interpretation Code 3.7 - 5.0 [facility] Hematocrit (HCT) 38.7 % Normal 34.4-44.8 [facility] Comment on above: Performed By: #### C BCDIF, C-3, C-4, CH50, DNADS, SANDRA, [id number], CARDABS ####Unless otherwise noted, all testing performed by [address] [phone]: [id number] Director: Wenceslao Perez M.D. Hemoglobin (HGB) 13.1 g/dL Normal 11.6-15.4 [facility] Comment on above: Performed By: #### C BCDIF, C-3, C-4, CH50, DNADS, SANDRA, [id number], CARDABS ####Unless otherwise noted, all testing performed by [address] [phone]: [id number] Director: Wenceslao Perez M.D. Lymphocytes 2.7 K/mcL Invalid Interpretation Code 1.0 - 3.7 [facility] MCH 31.3 pg Normal 27.9-33.9 [facility] Comment on above: Performed By: #### C BCDIF, C-3, C-4, CH50, DNADS, SANDRA, [id number], CARDABS ####Unless otherwise noted, all testing performed by [address] [phone]: [id number] Director: Wenceslao Perez M.D. MCHC 33.8 g/dL Normal 33.1-35.1 [facility] Comment on above: Performed By: #### C BCDIF, C-3, C-4, CH50, DNADS, SANDRA, [id number], CARDABS ####Unless otherwise noted, all testing performed by [address] [phone]: [id number] Director: Wenceslao Perez M.D. MCV 92.7 fL Normal 82.6-98.9 [facility] Comment on above: Performed By: #### C BCDIF, C-3, C-4, CH50, DNADS, SANDRA, [id number], CARDABS ####Unless otherwise noted, all testing performed by [address] [phone]: [id number] Director: Wenceslao Perez M.D. Monocytes 0.3 K/mcL Invalid Interpretation Code 0.1 - 0.6 [facility] Neutrophils 2.6 K/mcL Invalid Interpretation Code 1.2 - 6.9 [facility] Platelet mean volume (PMV) 9 fL Invalid Interpretation Code 7.0 - 10.6 [facility] Platelets 255 K/mcL Invalid Interpretation Code 162 - 402 [facility] RDW-CA 12.9 % Normal 10.0-14.4 [facility] Comment on above: Performed By: #### C BCDIF, C-3, C-4, CH50, DNADS, SANDRA, [id number], CARDABS ####Unless otherwise noted, all testing performed by [address] [phone]: [id number] Director: Wenceslao Perez M.D. Segmented Neut 43.7 % Invalid Interpretation Code [facility] T8 suppressor/100 cells 5.1 10*3/uL Invalid Interpretation Code [facility] T8 suppressor/100 cells 45.2 10*3/uL Invalid Interpretation Code [facility] T8 suppressor/100 cells 5.6 10*3/uL Invalid Interpretation Code [facility] WBC (Leukocytes) 5.9 K/mcL Invalid Interpretation Code 3.4 - 10.6 [facility] CBC with Diffon 09-09-2017 Basophils Auto #/vol (Bld) 0.0 K/mcL Normal 0-0.2 [facility] Comment on above: Performed By: #### C BCDIF, C-3, C-4, CH50, DNADS, SANDRA, [id number], CARDABS ####Unless otherwise noted, all testing performed by [address] [phone]: [id number] Director: Wenceslao Perez M.D. Basophils/100 WBC Auto (Bld) 0.4 % Normal [facility] Comment on above: Performed By: #### C BCDIF, C-3, C-4, CH50, DNADS, SANDRA, [id number], CARDABS ####Unless otherwise noted, all testing performed by [address] [phone]: [id number] Director: Wenceslao Perez M.D. Eosinophils 0.3 K/mcL Normal 0-0.5 [facility] Comment on above: Performed By: #### C BCDIF, C-3, C-4, CH50, DNADS, SANDRA, [id number], CARDABS ####Unless otherwise noted, all testing performed by [address] [phone]: [id number] Director: Wenceslao Perez M.D. Eosinophils/100 leukocytes 5.1 % Normal [facility] Comment on above: Performed By: #### C BCDIF, C-3, C-4, CH50, DNADS, SANDRA, [id number], CARDABS ####Unless otherwise noted, all testing performed by [address] [phone]: [id number] Director: Wenceslao Perez M.D. Erythrocytes (RBC) 4.17 M/mcL Normal 3.7-5.0 [facility] Comment on above: Performed By: #### C BCDIF, C-3, C-4, CH50, DNADS, SANDRA, [id number], CARDABS ####Unless otherwise noted, all testing performed by [address] [phone]: [id number] Director: Wenceslao Perez M.D. Lymphocytes 2.7 K/mcL Normal 1.0-3.7 [facility] Comment on above: Performed By: #### C BCDIF, C-3, C-4, CH50, DNADS, SANDRA, [id number], CARDABS ####Unless otherwise noted, all testing performed by [address] [phone]: [id number] Director: Wenceslao Perez M.D. Lymphocytes/100 leukocytes 45.2 % Normal [facility] Comment on above: Performed By: #### C BCDIF, C-3, C-4, CH50, DNADS, SANDRA, [id number], CARDABS ####Unless otherwise noted, all testing performed by [address] [phone]: [id number] Director: Wenceslao Perez M.D. Monocytes 0.3 K/mcL Normal 0.1-0.6 [facility] Comment on above: Performed By: #### C BCDIF, C-3, C-4, CH50, DNADS, SANDRA, [id number], CARDABS ####Unless otherwise noted, all testing performed by [address] [phone]: [id number] Director: Wenceslao Perez M.D. Monocytes/100 leukocytes 5.6 % Normal [facility] Comment on above: Performed By: #### C BCDIF, C-3, C-4, CH50, DNADS, SANDRA, [id number], CARDABS ####Unless otherwise noted, all testing performed by [address] [phone]: [id number] Director: Wenceslao Perez M.D. Neutrophils 2.6 K/mcL Normal 1.2-6.9 [facility] Comment on above: Performed By: #### C BCDIF, C-3, C-4, CH50, DNADS, SANDRA, [id number], CARDABS ####Unless otherwise noted, all testing performed by [address] [phone]: [id number] Director: Wenceslao Perez M.D. Platelet mean volume (PMV) 9.0 fL Normal 7.0-10.6 [facility] Comment on above: Performed By: #### C BCDIF, C-3, C-4, CH50, DNADS, SANDRA, [id number], CARDABS ####Unless otherwise noted, all testing performed by [address] [phone]: [id number] Director: Wenceslao Perez M.D. Platelets 255 K/mcL Normal 162-402 [facility] Comment on above: Performed By: #### C BCDIF, C-3, C-4, CH50, DNADS, SANDRA, [id number], CARDABS ####Unless otherwise noted, all testing performed by [address] [phone]: [id number] Director: Wenceslao Perez M.D. Segmented Neut % 43.7 % Normal [facility] Comment on above: Performed By: #### C BCDIF, C-3, C-4, CH50, DNADS, SANDRA, [id number], CARDABS ####Unless otherwise noted, all testing performed by [address] [phone]: [id number] Director: Wenceslao Perez M.D. WBC (Leukocytes) 5.9 K/mcL Normal 3.4-10.6 [facility] Comment on above: Performed By: #### C BCDIF, C-3, C-4, CH50, DNADS, SANDRA, [id number], CARDABS ####Unless otherwise noted, all testing performed by [address] [phone]: [id number] Director: Wenceslao Perez M.D. CH50 (Complement Total)on CH50 (Complement Total) 61 U/mL Normal 30 - 75 O [facility] Comment on above: Result Comment: Test Performed by:[address] [address] Performed By: #### C BCDIF, C-3, C-4, CH50, DNADS, SANDRA, [id number], CARDABS ####Unless otherwise noted, all testing performed by [address] [phone]: [id number] Director: Wenceslao Perez M.D. Cardiolipin Autoanitbodieson 09-09-2017 Cardiolipin IgG < 9 Normal 0-15 [facility] Comment on above: Performed By: #### C BCDIF, C-3, C-4, CH50, DNADS, SANDRA, [id number], CARDABS ####Unless otherwise noted, all testing performed by [address] [phone]: [id number] Director: Wenceslao Perez M.D. Cardiolipin, IgA < 9 Normal 0-15 [facility] Comment on above: Result Comment: Test performed by:[address] [id number] Performed by [facility] [address] [place] [address] Performed By: #### C BCDIF, C-3, C-4, CH50, DNADS, SANDRA, [id number], CARDABS ####Unless otherwise noted, all testing performed by [address] [phone]: [id number] Director: Wenceslao Perez M.D. Cardiolipin, IgM < 9 Normal 0-15 [facility] Comment on above: Performed By: #### C BCDIF, C-3, C-4, CH50, DNADS, SANDRA, [id number], CARDABS ####Unless otherwise noted, all testing performed by [address] [phone]: [id number] Director: Wenceslao Perez M.D. DNA Double Stranded(dsDNA)Ab on 09-09-2017 DNA Double Stranded(dsDNA)Ab < 10 Normal <10 [facility] Comment on above: Result Comment: [place] [address] Performed By: #### C BCDIF, C-3, C-4, CH50, DNADS, SANDRA, [id number], CARDABS ####Unless otherwise noted, all testing performed by [address] [phone]: [id number] Director: Wenceslao Perez M.D. MANNIE Antibodieson 09-09-2017 MANNIE Antibodies 4 Units Normal 0-19 [facility] Comment on above: Result Comment: THE MANNIE Screen tests for SSA,SSB,SM,SM/WELLNESS INSTRUCTOR,SCL-70, AND JO1.Reference Ranges:<20 Units = Aetctzct16-27 Units = Borderline>25 Units = [place] [address] Performed By: #### E NAAB ####Unless otherwise noted, all testing performed by [address] [phone]: [id number] Director: Wenceslao Perez M.D. HAND BILATERAL, 2 VIEWSon Bilirubin (direct) Final ReportAccession No: [id number] Performed: Sep 09 2017 2:04PMExamination: HAND BILATERAL, 2 VIEWSHAND BILATERAL, 2 VIEWSCLINICAL STATEMENT: Bilateral hand pain for 2 years, greater involving theright thumb and left fourth and fifth digits.TECHNIQUE: PA and AP x-rays of the bilateral hands.COMPARISON: None available.FINDINGS:RIGH T HAND: Radiocarpal alignment appears preserved. There is joint spacenarrowing and marginal spur most pronounced at the thumb CMC joint. Minormarginal spur involving the third and fifth DIP joints. No bony erosivechangesare seen. No acute fracture identified. No significant soft tissueswelling orradiopaque foreign body.LEFT HAND: There is mild joint space narrowing at the thumb CMC joint withadjacent loose body laterally measuring 3 mm. Marginal spur is also notedatthe fifth DIP joint. No acute fracture identified. No periarticularerosivecha nge. No significant soft tissue swelling. No radiopaque foreign body.IMPRESSION:1. Mild to moderate osteoarthritis most pronounced bilaterally involvingthethumb CMC joints. Lesser osteoarthritis involving the bilateral fifth DIPjoints and right DIP joint.2. No acute osseous variation or osseous erosive changes.Interpreting Physician: DENI CASTRO D.O.Trans: apope : cc: Normal [facility] OCT MACULA CIRRUS OU (BOTH E YES) [facility] Vital Signs Date Time Vital Sign Value Performing Clinician Facility 12-08-2024 15:01-0400 Body height 172.[address] Margarita Meza DO Work Phone: [facility] 12-08-2024 15:01-0400 Body mass index (BMI) [Ratio] 32.8 kg/m2 Dr. Margarita Meza DO Work Phone: [facility] 12-08-2024 15:01-0400 Body weight 97.[address] Margarita Meza DO Work Phone: [facility] 12-08-2024 15:01-0400 Diastolic blood pressure 84 mm[Hg] Dr. Margarita Meza DO Work Phone: [facility] 12-08-2024 15:01-0400 Systolic blood pressure 136 mm[Hg] Dr. Margarita Meza DO Work Phone: [facility] 09-23-2023 13:55-0500 Body height 172.[address] Margarita Meza Work Phone: [facility] 09-23-2023 13:52-0500 Body mass index (BMI) [Ratio] 33.4 kg/m2 Dr. Margarita Meza Work Phone: [facility] 09-23-2023 13:52-0500 Body weight 99.[address] Margarita Meza Work Phone: [facility] 09-23-2023 13:52-0500 Diastolic blood pressure 78 mm[Hg] Dr. Margarita Meza Work Phone: [facility] 09-23-2023 13:52-0500 Heart rate 62 /min Dr. Margarita Meza Work Phone: [facility] 09-23-2023 13:52-0500 Respiratory rate 18 /min Dr. Margarita Meza Work Phone: [facility] 09-23-2023 13:52-0500 SaO2% (BldA) [Mass fraction] 95 % Dr. Margarita Meza Work Phone: [facility] 09-23-2023 13:52-0500 Systolic blood pressure 157 mm[Hg] Dr. Margarita Meza Work Phone: [facility] 07-24-2022 15:52-0500 Body height 172.[address] Margarita Meza Work Phone: [facility] 07-24-2022 15:52-0500 Body mass index (BMI) [Ratio] 31.6 kg/m2 Dr. Margarita Meza Work Phone: [facility] 07-24-2022 15:52-0500 Body weight 94.[address] Margarita Meza Work Phone: [facility] 07-24-2022 15:52-0500 Diastolic blood pressure 80 mm[Hg] Dr. Margarita Meza Work Phone: [facility] 07-24-2022 15:52-0500 Heart rate 67 /min Dr. Margarita Meza Work Phone: [facility] 07-24-2022 15:52-0500 Respiratory rate 22 /min Dr. Margarita Meza Work Phone: [facility] 07-24-2022 15:52-0500 Systolic blood pressure 135 mm[Hg] Dr. Margarita Meza Work Phone: [facility] 07-15-2022 10:03-0500 Body temperature 97.7 [degF] Dr. Margarita Meza Work Phone: [facility] 07-15-2022 10:03-0500 Diastolic blood pressure 65 mm[Hg] Dr. Margarita Meza Work Phone: [facility] 07-15-2022 10:03-0500 Heart rate 63 /min Dr. Margarita Meza Work Phone: [facility] 07-15-2022 10:03-0500 Respiratory rate 16 /min Dr. Margarita Meza Work Phone: [facility] 07-15-2022 10:03-0500 SaO2% (BldA) [Mass fraction] 96 % Dr. Margarita Meza Work Phone: [facility] 07-15-2022 10:03-0500 Systolic blood pressure 130 mm[Hg] Dr. Margarita Meza Work Phone: [facility] 07-15-2022 07:56-0500 Body mass index (BMI) [Ratio] 30.4 kg/m2 Dr. Margarita Meza Work Phone: [facility] 07-15-2022 07:56-0500 Body weight 90.[address] Margarita Meza Work Phone: [facility] 06-21-2022 08:59-0400 Body mass index (BMI) [Ratio] 31.3 kg/m2 Dr. Margarita Meza Work Phone: [facility] 06-21-2022 08:59-0400 Body weight 93.[address] Margarita Meza Work Phone: [facility] 09-09-2017 13:01-0500 BMI (Body Mass Index) 30.24 kg/m2 Yann Juani [facility] Work Phone: 09-09-2017 13:01-0500 BP Diastolic 72 mm[Hg] Yann [facility] Work Phone: 09-09-2017 13:01-0500 BP Systolic 120 mm[Hg] [facility] Work Phone: 09-09-2017 13:01-0500 Height 172.7 cm [facility] Work Phone: 09-09-2017 13:01-0500 Pulse (Heart Rate) 66 /min Yann Gloria [facility] Work Phone: 09-09-2017 13:01-0500 Weight 90.22 kg Yann Gloria [facility] Work Phone: Encounters Encounter Date Encounter Type Care Provider Facility Start: 02-28-2025 ambulatory ROD FABIAN [facility] Start: 02-14-2025 End: 02-14-2025 Patient encounter procedure Denise Asif OD Work Phone: Optometry Comment on above: PVD (posterior vitre ous detachment), bilateral (Primary Dx); Vitreous floaters, bilateral; Age-related nuclear cataract, bilateral; Myopia, bilateral; Regular astigmatism, bilateral; Presbyopia Start: 02-14-2025 End: 02-14-2025 ambulatory DENISE ASIF Facility:[facility] Start: 01-17-2025 End: 01-17-[address] Margarita Meza DO Work Phone: [facility] Work Phone: Start: 01-17-2025 End: 01-17-[address] Mell Roman DO -Outpatient Breast Imaging Work Phone: Start: 01-17-2025 End: 01-17-2025 ambulatory Margarita Meza Facility:[facility] Start: 12-21-2024 End: 12-21-[address] Margarita Meza DO Work Phone: [facility] Work Phone: Start: 12-21-2024 End: 12-21-[address] Margarita Meza DO -Ultrasound, [facility] Work Phone: Start: 12-21-2024 End: 12-21-2024 ambulatory Margarita Meza Facility:[facility] Start: 12-08-2024 End: 12-08-[address] Margarita Meza DO Work Phone: [facility] Work Phone: Start: 12-08-2024 End: 12-08-2024 Patient encounter procedure Danielle GREER -Laboratory, Specimen Work Phone: Start: 12-08-2024 End: 12-08-2024 Patient encounter procedure Danielle GREER -[facility] Work Phone: Start: 12-08-2024 End: 12-08-2024 ambulatory Margarita Derrick [place] Start: 12-08-2024 End: 12-08-2024 ambulatory Margarita Derrick Facility:[facility] Start: 03-23-2024 End: 03-23-2024 ambulatory Margarita Derrick [place] Start: 03-23-2024 End: 03-23-2024 ambulatory Osorio Marybel Bri Facility[place] Start: 03-06-2024 End: 03-06-2024 ambulatory Margarita Meza Facility:[facility] Start: 11-29-2023 End: 11-29-[address] Margarita Meza Work Phone: [facility] Work Phone: Start: 11-29-2023 End: 11-29-[address] Margraita Meza Work Phone: [facility]-Laboratory Work Phone: Start: 10-06-2023 End: 10-06-[address] Margarita Meza Work Phone: [facility]-Laboratory Work Phone: Start: 09-23-2023 End: 09-23-[address] Margarita Meza Work Phone: [facility] Work Phone: Start: 09-26-2022 End: 09-26-[address] Margarita Meza Work Phone: [facility] Work Phone: Start: 09-26-2022 End: 09-26-[address] Margarita Meza Work Phone: [facility] Start: 08-13-2022 Non-patient / Non-visit Dr. Margarita Meza Work Phone: [facility] Start: 08-13-2022 End: 08-13-[address] Margarita Meza Work Phone: [facility] Work Phone: Start: 08-13-2022 End: 08-13-[address] Margarita Meza Work Phone: [facility]-Cardiovascular Services Start: 07-30-2022 End: 07-30-2022 Patient encounter procedure Denise Asif OD Work Phone: Ophthalmology Comment on above: Posterior vitreous d etachment of right eye (Primary Dx); Vitreous floaters of both eyes; Dry eye syndrome of both eyes; Nuclear sclerotic cataract of both eyes Start: 07-24-2022 End: 07-24-[address] Margarita Meza Work Phone: [facility] Start: 07-24-2022 End: 07-24-[address] Margarita Meza Work Phone: [facility] Work Phone: Start: 07-24-2022 End: 07-24-[address] Margarita Meza Work Phone: [facility]-Outpatient Breast Imaging Start: 07-20-2022 End: 07-20-[address] Margarita Meza Work Phone: [facility] Work Phone: Start: 07-20-2022 End: 07-20-[address] Margarita Meza Work Phone: [facility]-Laboratory Start: 07-15-2022 Non-patient / Non-visit Dr. Margarita Meza Work Phone: [facility] Start: 07-15-2022 End: 07-15-2022 Admission to same day surgery center Dr. Margarita Meza Work Phone: [facility]-Endoscopy Start: 06-21-2022 Non-patient / Non-visit Dr. Margarita Meza Work Phone: [facility] Start: 09-10-2021 Patient encounter procedure [facility] Work Phone: Start: 07-05-2021 Patient encounter procedure [facility] Work Phone: Start: 06-27-2021 Patient encounter procedure [facility]arita Meza [facility] Work Phone: Start: 06-20-2021 Patient encounter procedure Margarita Meza Work Phone: [facility] [place] Work Phone: Start: 06-13-2021 Patient encounter procedure Margarita Godoy Malbhargavi Work Phone: [facility] [place] Work Phone: Start: 06-06-2021 Patient encounter procedure Margarita Godoy Malbhargavi Work Phone: [facility] [place] Work Phone: Start: 05-30-2021 Patient encounter procedure Margarita Godoy Malys [facility]: [facility] Work [facility]: Start: 05-17-2021 Patient encounter procedure Margarita Godoy Malbhargavi Work Phone: [facility] Work Phone: Start: 05-09-2021 Patient encounter procedure Margarita Godoy Malbhargavi Work Phone: [facility] Work Phone: Start: 05-09-2021 PTFUADULT4, Provider : Kisha Fernandez, Status: Pen, Time: 11:30 AM Margarita A Malys Work Phone: [facility] Work Phone: Start: 05-07-2021 Patient encounter procedure Margarita Godoy Malbhargavi [facility]: [facility] [place] Work Phone: Start: 05-02-2021 PTFUADULT4, Provider : Kisha Fernandez, Status: Pen, Time: 11:30 AM Margarita A Malys Work Phone: [facility] [place] Work Phone: Start: 04-30-2021 Patient encounter procedure Margarita A Malys Work Phone: [facility] Work Phone: Start: 04-25-2021 Patient encounter procedure Margarita Meza Work [facility]: [facility] Work Phone: Start: 04-25-2021 PTFUADULT4, Provider : Kisha Fernandez, Status: Pen, Time: 11:30 AM Margarita Meza Work Phone: [facility] Work Phone: Start: 04-23-2021 Patient encounter procedure Margarita Meza Work Phone: [facility] Work Phone: Start: 04-23-2021 PTFUADULT4, Provider : Kisha Fernandez, Status: Pen, Time: 11:30 AM Margarita Meza [facility] Work Phone: Start: 04-20-2021 Patient encounter procedure Margarita Meza Work Phone: [facility] Work Phone: Start: 04-16-2021 Patient encounter procedure Margarita Meza Work Phone: [facility] Work Phone: Start: 04-11-2021 Patient encounter procedure Margarita Meza Work Phone: [facility] Work Phone: Start: 04-11-2021 PTFUADULT4, Provider : Denise Dee, Status: Pen, Time: 11:30 AM Margarita Meza Work Phone: [facility] Work Phone: Start: 04-09-2021 Patient encounter procedure Margarita Meza Work Phone: [facility] [place] Work Phone: Start: 04-04-2021 PTFUADULT4, Provider : Kisha Fernandez, Status: Pen, Time: 11:30 AM Margarita Meza Work Phone: [facility] [place] Work Phone: Start: 04-02-2021 Patient encounter procedure Margarita Meza Work Phone: [facility] [place] Work Phone: Start: 03-30-2021 Patient encounter procedure Margarita Meza Work Phone: [facility] [place] Work Phone: Start: 03-27-2021 Patient encounter procedure Margarita Meza Work Phone: [facility] [place] Work Phone: Start: 03-22-2021 Patient encounter procedure Margarita Meza Work Phone: [facility] [place] Work Phone: Start: 12-01-2020 End: 12-01-2020 Patient encounter procedure MARTHA BALL [facility] Start: 12-01-2020 End: 12-01-2020 Patient encounter procedure Denise Dickson Work Phone: [facility] Start: 11-09-2020 End: 11-09-2020 Patient encounter procedure MARGARITA MEZA [facility] Start: 11-09-2020 End: 11-09-2020 Patient encounter procedure Gabi Long [facility] Start: 06-24-2019 Patient encounter procedure Felicia Medellin [facility] [place] Work Phone: Start: 06-22-2019 Patient encounter procedure Renetta Waite [facility] Work Phone: Start: 06-18-2019 Patient encounter procedure Renetta Waite [facility] Work Phone: Start: 08-04-2018 End: 08-04-2018 Patient encounter procedure MORE LUNA [facility] Start: 08-04-2018 End: 08-04-2018 Patient encounter procedure More Juno Jose Facility:[facility] Start: 07-22-2018 End: 10-12-2018 Patient encounter procedure Deni Ballard Facility:[facility] Start: 07-22-2018 Patient encounter procedure Facility:[id number] Start: 10-28-2017 End: 11-21-2017 Patient encounter procedure Margarita Meza Facility:[facility] Start: 09-09-2017 End: 09-09-2017 Ambulatory YANN CORRINE STARYANICK [facility] Start: 09-09-2017 Ambulatory Yann Gloria [facility] ty:[facility] Start: 09-09-2017 End: 09-09-2017 Ambulatory Yann Corrine Stadnick Work Phone: [facility] Start: 09-09-2017 Office/outpatient visit, new, level 4 Yann Corrine Stadnick Work Phone: [facility] Start: 09-16-2014 Patient encounter status Denise Asif OD Work Phone: [facility] Work Phone: Procedures Date Procedure Procedure Detail Performing Clinician Start: 01-17-2025 Screening mammography Ying Meza DO Work Phone: Start: 12-21-[address] Pascale Meza DO Work Phone: Start: 12-21-2024 Vitamin D, 25-hydrox y measurement Dr. Margarita Meza DO Work Phone: Comment on above: Vitamin D StatusDefi ciency: <20 ng/mL (50nmol/L)Insufficiency: 20-30 ng/mL (50-75 nmol/L)Sufficiency: 30-100 ng/mL (75-250 nmol/L)Toxicity: >100 ng/mL (>250 nmol/L) Start: 12-21-[address] Margarita Meza DO Work Phone: Start: 09-26-2022 Plain chest X-ray Dr. Pascale Meza Work Phone: Start: 07-30-2022 Computerized ophthal steven imaging retina Denise Asif OD Work Phone: Start: 07-24-2022 Screening mammography D r. Margarita Meza Work Phone: Start: 08-04-2018 Colonoscopy Denise phillips OD Work Phone: Start: 11-14-2016 Mammography Denise phillips OD Work Phone: Start: 05-31-2016 Lipid 1996 panel - S harrison or Plasma Denise Asif OD Work Phone: Plan of Treatment Date Care Activity Detail Author Start: 2035 RSV Vaccine (1 - 1-d ose 75+ series) RSV Vaccine (1 - 1-dose 75+ series) [facility] Start: 02-20-2026 End: 02-20-2026 Patient encounter procedure 02/20/2026 8:00 AM EDT Office Visit [facility] [address] [place] [address] Denise Asif, OD [address] [place] [address] Eye exam/MMO $10 Optometry Comment on above: Eye exam/MMO $10 Start: 05-09-2025 Influenza vaccination Influenz a Vaccine (Season Ended) [facility] Start: 05-09-2024 Covid-19 Vaccine ( season) Covid-19 Vaccine ( season) [facility] Start: 08-04-2023 Colonoscopy COLONOSCOPY [facility] Start: 08-04-2023 COLORECTAL CANCER SCREENING COLORECTAL CANCER SCREENING [facility] Start: 08-04-2023 Screening for malign ant neoplasm of colon [facility] Start: 07-15-2022 Colonoscopy w/biopsy single/multiple COLONOSCOPY AND BIOPSY [facility] Start: 07-15-2022 Patient discharge [facility] Start: 05-09-2022 Influenza vaccination INFLUENZA (#1) [facility] Start: 11-08-2021 HPV TESTING HPV TESTING [facility] Start: 11-08-2021 PAP TESTING PAP TESTING [facility] Start: 07-05-2021 NASRA, Provider : Nori Osborn, Status: Pen, Time: 11:45 AM PTRECHECKWalt, Provider: Nori Osborn, Status: Pen, Time: 11:45 AM [facility] Work Phone: Start: 06-28-2021 NASRA, Provider : Nori Osborn, Status: Pen, Time: 1:30 PM PTRECHECKWalt, Provider: Nori Osborn, Status: Pen, Time: 1:30 PM [facility] Work Phone: Start: 06-27-2021 PTFUADULT4, Provider : Kisha Fernandez, Status: Pen, Time: 10:45 AM PTFUADULT4, Provider: Kisha Fernandez, Status: Pen, Time: 10:45 AM [facility] [place] Work Phone: Start: 06-20-2021 PTFUADULT4, Provider : Kisha Fernandez, Status: Pen, Time: 11:30 AM PTFUADULT4, Provider: Kisha Fernandez, Status: Pen, Time: 11:30 AM [facility] Work Phone: Start: 06-13-2021 PTFUADULT4, Provider : Kisha Fernandez, Status: Pen, Time: 11:30 AM PTFUADULT4, Provider: Kisha Fernandez, Status: Pen, Time: 11:30 AM [facility] Work Phone: Start: 06-06-2021 PTFUADULT4, Provider : Kisha Fernandez, Status: Pen, Time: 11:30 AM PTFUADULT4, Provider: Kisha Fernandez, Status: Pen, Time: 11:30 AM [facility] Work Phone: Start: 05-31-2021 Lipid panel Lipid Screening [facility] Start: 05-31-2021 LIPID SCREEN LIPID SCREEN [facility] Start: 05-30-2021 PTFUADULT4, Provider : Kisha Fernandez, Status: Pen, Time: 9:15 AM PTFUADULT4, Provider: Kisha Fernandez, Status: Pen, Time: 9:15 AM [facility] Work Phone: Start: 05-25-2021 PTFUADULT4, Provider : Radha Galan, Status: Pen, Time: 2:00 PM PTFUADULT4, Provider: Radha Galan, Status: Pen, Time: 2:00 PM [facility] Work Phone: Start: 05-17-2021 PTRECHADUL, Provider : Nori Osborn, Status: Pen, Time: 1:30 PM PTRECHADUL, Provider: Nori Osborn, Status: Pen, Time: 1:30 PM [facility] Work Phone: Start: 05-11-2021 PTFUADULT4, Provider : Kisha Fernandez, Status: Pen, Time: 9:15 AM PTFUADULT4, Provider: Kisha Fernandez, Status: Pen, Time: 9:15 AM [facility] Work Phone: Start: 05-09-2021 PTFUADULT4, Provider : Kisha Fernandez, Status: Pen, Time: 11:30 AM PTFUADULT4, Provider: Kisha Fernandez, Status: Pen, Time: 11:30 AM [facility] Work Phone: Start: 05-07-2021 PTFUADULT4, Provider : Kisha Fernandez, Status: Pen, Time: 1:15 PM PTFUADULT4, Provider: Kisha Fernandez, Status: Pen, Time: 1:15 PM [facility] Work Phone: Start: 05-02-2021 PTFUADULT4, Provider : Kisha Fernandez, Status: Pen, Time: 11:30 AM PTFUADULT4, Provider: Kisha Fernandez, Status: Pen, Time: 11:30 AM [facility] Work Phone: Start: 05-02-2021 PTFUADULT4, Provider : Kisha Fernandez, Status: Pen, Time: 10:45 AM PTFUADULT4, Provider: Kisha Fernandez, Status: Pen, Time: 10:45 AM [facility] Work Phone: Start: 04-30-2021 PTFUADULT4, Provider : Kisha Fernandez, Status: Pen, Time: 1:15 PM PTFUADULT4, Provider: Kisha Fernandez, Status: Pen, Time: 1:15 PM [facility] Work Phone: Start: 04-25-2021 PTFUADULT4, Provider : Kisha Fernandez, Status: Pen, Time: 11:30 AM PTFUADULT4, Provider: Kisha Fernandez, Status: Pen, Time: 11:30 AM [facility] Work Phone: Start: 04-23-2021 PTFUADULT4, Provider : Kisha Fernandez, Status: Pen, Time: 1:15 PM PTFUADULT4, Provider: Kisha Fernandez, Status: Pen, Time: 1:15 PM [facility] Work Phone: Start: 04-23-2021 PTFUADULT4, Provider : Kisha Fernandez, Status: Pen, Time: 11:30 AM PTFUADULT4, Provider: Kisha Fernandez, Status: Pen, Time: 11:30 AM [facility] Work Phone: Start: 04-20-2021 PTFUADULT4, Provider : Denise Dee, Status: Pen, Time: 10:45 AM PTFUADULT4, Provider: Denise Dee, Status: Pen, Time: 10:45 AM [facility] Work Phone: Start: 04-18-2021 PTFUADULT4, Provider : Kisha Fernandez, Status: Pen, Time: 11:30 AM PTFUADULT4, Provider: Kisha Fernandez, Status: Pen, Time: 11:30 AM [facility] Work Phone: Start: 04-16-2021 PTFUADULT4, Provider : Kisha Fernandez, Status: Pen, Time: 1:15 PM PTFUADULT4, Provider: Kisha Fernandez, Status: Pen, Time: 1:15 PM [facility] Work Phone: Start: 04-11-2021 PTFUADULT4, Provider : Kisha Fernandez, Status: Pen, Time: 11:30 AM PTFUADULT4, Provider: Kisha Fernandez, Status: Pen, Time: 11:30 AM [facility] Work Phone: Start: 04-09-2021 PTFUADULT4, Provider : Kisha Fernandez, Status: Pen, Time: 1:15 PM PTFUADULT4, Provider: Kisha Fernandez, Status: Pen, Time: 1:15 PM [facility] Work Phone: Start: 04-04-2021 PTFUADULT4, Provider : Kisha Fernandez, Status: Pen, Time: 11:30 AM PTFUADULT4, Provider: Kisha Fernandez, Status: Pen, Time: 11:30 AM [facility]: Start: 04-02-2021 PTFUADULT4, Provider : Kisha Fernandez, Status: Pen, Time: 1:15 PM PTFUADULT4, Provider: Kisha Fernandez, Status: Pen, Time: 1:15 PM [facility] Work [facility]: Start: 03-30-2021 PTFUADULT4, Provider : Kisha Fernandez, Status: Pen, Time: 1:15 PM PTFUADULT4, Provider: Kisha Fernandez, Status: Pen, Time: 1:15 PM [facility] Work Phone: Start: 03-27-2021 PTFUADULT4, Provider : Antony Tian, Status: Pen, Time: 2:45 PM PTFUADULT4, Provider: Antony Tian, Status: Pen, Time: 2:45 PM [facility] Work Phone: Start: 12-01-2020 End: 12-01-2020 Immunization 12/01/2020 Immunization Primary Care Denise Dickson DO [address] [place] [address] [phone] [facility] [place] [facility] Start: 11-30-2020 COVID-19 Vaccine (2 of 2 - Pfizer series) COVID-19 Vaccine (2 of 2 - Pfizer series) [facility] Start: 05-09-2020 Influenza vaccinatio n given Sequential Influenza Vaccine (#1) [facility] Start: 01-25-2020 DIABETES SCREEN [facility] Start: 01-25-2020 Diabetes Screening Diabetes Screenin g [facility] Start: 11-09-2019 Screening for malign ant neoplasm of cervix Cervical Cancer Screening [facility] Start: 11-14-2017 Mammography MAMMOGRAM [facility] Start: 11-14-2017 Screening for malign ant neoplasm of breast Mammogram Screening [facility] Start: 05-09-2017 Influenza vaccination SEQUENTI AL INFLUENZA VACCINE (#1) [facility] Work Phone: Start: 2010 Administration of herpes zoster vaccine Zoster Vaccines (1 of 2) [facility] Start: 2010 Pneumococcal Vaccine : 50+ (1 of 1 - PCV) Pneumococcal Vaccine: 50+ (1 of 1 - PCV) [facility] Start: 2010 Screening for malign ant neoplasm of colon [facility] Start: 2010 SHINGRIX VACCINE (1 of 2) SHINGRIX VACCINE (1 of 2) [facility] Start: 2005 COLOGUARD (FIT-DNA) COLOGUARD (FIT-D NA) [facility] Start: [address] COLONOGRAPHY [facility] Start: 2005 FECAL OCCULT BLOOD FECAL OCCULT BLOO D [facility] Start: 2005 Screening for malign ant neoplasm of colon [facility] Start: 2005 SIGMOIDOSCOPY SIGMOIDOSCOPY [facility] Start: 1979 Urine microalbumin profile [facility] Start: 1978 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 GERMAN DISEASE VISIT ANNUAL PCP TEAM CHRONIC DISEASE VISIT [facility] Start: 1978 BP CONTROLLED (<130/80) BP CON TROLLED (<130/80) [facility] Start: 1978 Hepatitis C antibody , confirmatory test Hepatitis C Screening [facility] Start: 1978 HIV SCREENING HIV SCREENING [facility] Start: 1978 HIV screening HIV Screening [facility] Start: 1975 HIV screening HIV Screening [facility] Start: 1972 Adolescent depressio n screening assessment Depression Screening (PHQ9) [facility] Start: 1963 History and physical examination, annual for health maintenance Wellness Visit [facility] Start: 1960 Screening mammography Mammogram [facility] Start: 1960 HEPATITIS C SCREENING HEPATITIS C SC REENING [facility] Work Phone: Start: 1960 Screening colonoscopy COLONOSCOPY [facility] Work Phone: Start: 1960 End: 1960 Screening for malignant neoplasm of cervix PAP SMEAR [facility] Work Phone: Start: 1960 End: 1960 Tetanus vaccination [employer] Work Phone: End: 09-09-2018 SANDRA SANDRA Routine Abnormal laboratory test result 1 Occurrences starting 09/09/2017 until 09/09/2018 [facility] Work Phone: End: 09-10-2018 Anti-DNA Double-Stranded Antibody Anti-DNA Double-Stranded Antibody Routine Abnormal laboratory test result 1 Occurrences starting 09/09/2017 until 09/10/2018 [facility] Work Phone: End: 09-10-2018 Beta-2 Glycoprotein 1 Antibodies, IgG Beta-2 Glycoprotein 1 Antibodies, IgG Routine Abnormal laboratory test result 1 Occurrences starting 09/09/2017 until 09/10/2018 [facility] Work Phone: End: 09-10-2018 Beta-2 Glycoprotein 1 Antibodies, IgM Beta-2 Glycoprotein 1 Antibodies, IgM Routine Abnormal laboratory test result 1 Occurrences starting 09/09/2017 until 09/10/2018 [facility] Work Phone: End: 09-10-2018 C3 Complement C3 Complement Routine Abnormal laboratory test result 1 Occurrences starting 09/09/2017 until 09/10/2018 [facility] Work Phone: End: 09-10-2018 C4 Complement C4 Complement Routine Abnormal laboratory test result 1 Occurrences starting 09/09/2017 until 09/10/2018 [facility] Phone: End: 09-10-2018 Cardiolipin Antibodies Cardiolipin Antibodies Routine Abnormal laboratory test result 1 Occurrences starting 09/09/2017 until 09/10/2018 [facility] Work Phone: End: 09-10-2018 CBC and Differential CBC and Differential Routine Abnormal laboratory test result 1 Occurrences starting 09/09/2017 until 09/10/2018 [facility] Work Phone: Colonoscopy [facility] Work Phone: Colonoscopy [facility] End: 09-10-2018 Complement, Total Complement, Total Routine Abnormal laboratory test result 1 Occurrences starting 09/09/2017 until 09/10/2018 [employer] Work Phone: End: 09-10-2018 MANNIE Screen (SSA/B,SM,WELLNESS INSTRUCTOR,SCL70,JO1 ) MANNIE Screen (SSA/B,SM,WELLNESS INSTRUCTOR,SCL70,NIKKY 1) Routine Abnormal laboratory test result 1 Occurrences starting 09/09/2017 until 09/10/2018 [facility] Work Phone: Patient referral [facility] Work Phone: [facility] Work Phone: End: 09-09-2018 XR Hand Left 2 Views [facility] Work Phone: End: 09-09-2018 XR Hand Right 2 Views XR Hand Right 2 Views Routine Pain 1 Occurrences starting 09/09/2017 until 09/09/2018 [facility] Work Phone: End: 09-09-2018 XR Wrist Left 2 Views XR Wrist Left 2 Views Routine Pain 1 Occurrences starting 09/09/2017 until 09/09/2018 [facility] Work Phone: End: 09-09-2018 XR Wrist Right 2 Views XR Wrist Right 2 Views Routine Pain 1 Occurrences starting 09/09/2017 until 09/09/2018 [facility] Work Phone[facility] NEGATED: Highlighted row has been ruled out! Planned Goals not documented [facility] [place] Work Phone: Immunizations Immunization Date Immunization Notes Care Provider Laverne frias 12-01-2020 Pfizer SARS-CoV-2 Vaccination Martha Ball [facility] 11-09-2020 Pfizer SARS-CoV-2 Vaccination Gabi [facility] 06-09-2018 influenza virus vaccine, unspecified formulation Denise Cooperrider OD Work Phone: [facility] 07-24-2015 influenza, seasonal, injectable Denise Delilaher OD Work Phone: [facility] Work Phone: 07-10-2015 influenza virus vaccine, unspecified formulation Denise Maxrider OD Work Phone: [facility] Work Phone: Payers Date Payer Category Payer Unknown [id number] 2024 Self-pay [id number] 2019 Private Health Insurance MMO SUP ERMED PPO [id number] 2017 Unknown 2015 Unknown MMO MED MUTUAL S UPERMED PPO [id number] 2015-Present [id number] 2004 Unknown [id number] 1960 Unknown [id number] 2.16.840.1.999105.3.579.2. 356 1960 Unknown [id number] 2.16.840.1.885347.3.579.2. 278 1960 Unknown [id number] 2.16.840.1.325516.3.579.2. 717 1960 Unknown [id number] 2.16.840.1.072084.3.579.2. 717 1960 Unknown [id number] 2.16.840.1.143224.3.579.2. 903 1960 Unknown [id number] 2.16.840.1.162533.3.579.2. 903 1960 Unknown [id number] 2.16.840.1.645490.3.579.2. 651 Unknown [id number] 2.16.840.1.742442.3.579.2. 462 Unknown [id number] 2.16.840.1.036515.3.579.2. 462 Unknown [id number] 2.16.840.1.117552.3.579.2. 462 Unknown [id number] 2.16.840.1.860814.3.579.2. 462 Unknown [id number] 2.16.840.1.461700.3.579.2. 462 Unknown [id number] 2.16.840.1.618911.3.579.2. 462 Unknown [id number] 2.16.840.1.258745.3.579.2. 462 Social History Date Type Detail Facility Start: 09-10-2017 End: 09-23-2023 Tobacco smoking status [facility] Unknown if ever smoked [facility] Start: 1960 Sex Assigned At Not on file [facility] Work Phone: Start: 04-09-2016 End: 09-09-2017 Tobacco smoking status IDIS Never smoker [facility] Work Phone: Start: 04-09-2016 End: 09-09-2017 Tobacco use and exposure Never used [facility] Start: 09-09-2017 End: 02-14-2025 Alcohol intake Current non-drinker of alcohol (finding) [facility] Start: 07-20-2022 End: 07-30-2022 Exposure to SARS-CoV-2 (event) Not sure [facility] Start: 01-24-2021 Non-smoker [facility] Start: 1960 Sex Assigned At Female [facility] Start: 12-15-2024 End: 12-25-2024 Sex Female (finding) [facility] Start: 08-13-2020 End: 02-14-2025 History of Social function [facility] Start: 08-13-2020 End: 02-14-2025 Tobacco use panel [facility] National Score (1-100), lower number is lower risk Not on file [facility] NEGATED: Highlighted row [facility] Medical Equipment Procedure Code Equipment Code Equipment Original Text Equipment Identifier Dates ORIF, ankle 3.5 cortical screw FDA Start: 01-25-2021 ORIF, ankle 3mm low profile screw FDA Start: 01-25-2021 ORIF, ankle 4mm canc fully thread screw FDA Start: 01-25-2021 ORIF, ankle 8 hole locking straight plate FDA Start: 01-25-2021 ORIF, ankle 3.5 cortical screw FDA Start: 01-25-2021 ORIF, ankle 3.5 locking screw FDA Start: 01-25-2021 ORIF, ankle 3.5 locking screw FDA Start: 01-25-2021 ORIF, ankle 3.5 locking screw FDA Start: 01-25-2021 ORIF, ankle 3.5MM LO PRO LOC K SCREW FDA Start: 01-25-2021 ORIF, ankle 3MM LOW PROFILE SCREWS FDA Start: 01-25-2021 ORIF, ankle 3MM LOW PROFILE SCREWS FDA Start: 01-25-2021 ORIF, ankle 3mm low profile screw FDA Start: 01-25-2021 ORIF, ankle 3.5 cortical screw FDA Start: 01-25-2021 ORIF, ankle 3mm low profile screw FDA Start: 01-25-2021 ORIF, ankle 4mm canc fully thread screw FDA Start: 01-25-2021 ORIF, ankle 8 hole locking straight plate FDA Start: 01-25-2021 ORIF, ankle 3.5 cortical screw FDA Start: 01-25-2021 ORIF, ankle 3.5 locking screw FDA Start: 01-25-2021 ORIF, ankle 3.5 locking screw FDA Start: 01-25-2021 ORIF, ankle 3.5 locking screw FDA Start: 01-25-2021 ORIF, ankle 3.5MM LO PRO LOC K SCREW FDA Start: 01-25-2021 ORIF, ankle 3MM LOW PROFILE SCREWS FDA Start: 01-25-2021 ORIF, ankle 3MM LOW PROFILE SCREWS FDA Start: 01-25-2021 ORIF, ankle 3mm low profile screw FDA Start: 01-25-2021 ORIF, ankle 3.5 cortical screw FDA Start: 01-25-2021 ORIF, ankle 3mm low profile screw FDA Start: 01-25-2021 ORIF, ankle 4mm canc fully thread screw FDA Start: 01-25-2021 ORIF, ankle 8 hole locking straight plate FDA Start: 01-25-2021 ORIF, ankle 3.5 cortical screw FDA Start: 01-25-2021 ORIF, ankle 3.5 locking screw FDA Start: 01-25-2021 ORIF, ankle 3.5 locking screw FDA Start: 01-25-2021 ORIF, ankle 3.5 locking screw FDA Start: 01-25-2021 ORIF, ankle 3.5MM LO PRO LOC K SCREW FDA Start: 01-25-2021 ORIF, ankle 3MM LOW PROFILE SCREWS FDA Start: 01-25-2021 ORIF, ankle 3MM LOW PROFILE SCREWS FDA Start: 01-25-2021 ORIF, ankle 3mm low profile screw FDA Start: 01-25-2021 ORIF, ankle 3.5 cortical screw FDA Start: 01-25-2021 ORIF, ankle 3mm low profile screw FDA Start: 01-25-2021 ORIF, ankle 4mm canc fully thread screw FDA Start: 01-25-2021 ORIF, ankle 8 hole locking straight plate FDA Start: 01-25-2021 ORIF, ankle 3.5 cortical screw FDA Start: 01-25-2021 ORIF, ankle 3.5 locking screw FDA Start: 01-25-2021 ORIF, ankle 3.5 locking screw FDA Start: 01-25-2021 ORIF, ankle 3.5 locking screw FDA Start: 01-25-2021 ORIF, ankle 3.5MM LO PRO LOC K SCREW FDA Start: 01-25-2021 ORIF, ankle 3MM LOW PROFILE SCREWS FDA Start: 01-25-2021 ORIF, ankle 3MM LOW PROFILE SCREWS FDA Start: 01-25-2021 ORIF, ankle 3mm low profile screw FDA Start: 01-25-2021 ORIF, ankle 3.5 cortical screw FDA Start: 01-25-2021 ORIF, ankle 3mm low profile screw FDA Start: 01-25-2021 ORIF, ankle 4mm canc fully thread screw FDA Start: 01-25-2021 ORIF, ankle 8 hole locking straight plate FDA Start: 01-25-2021 ORIF, ankle 3.5 cortical screw FDA Start: 01-25-2021 ORIF, ankle 3.5 locking screw FDA Start: 01-25-2021 ORIF, ankle 3.5 locking screw FDA Start: 01-25-2021 ORIF, ankle 3.5 locking screw FDA Start: 01-25-2021 ORIF, ankle 3.5MM LO PRO LOC K SCREW FDA Start: 01-25-2021 ORIF, ankle 3MM LOW PROFILE SCREWS FDA Start: 01-25-2021 ORIF, ankle 3MM LOW PROFILE SCREWS FDA Start: 01-25-2021 ORIF, ankle 3mm low profile screw FDA Start: 01-25-2021 ORIF, ankle 3.5 cortical screw FDA Start: 01-25-2021 ORIF, ankle 3mm low profile screw FDA Start: 01-25-2021 ORIF, ankle 4mm canc fully thread screw FDA Start: 01-25-2021 ORIF, ankle 8 hole locking straight plate FDA Start: 01-25-2021 ORIF, ankle 3.5 cortical screw FDA Start: 01-25-2021 ORIF, ankle 3.5 locking screw FDA Start: 01-25-2021 ORIF, ankle 3.5 locking screw FDA Start: 01-25-2021 ORIF, ankle 3.5 locking screw FDA Start: 01-25-2021 ORIF, ankle 3.5MM LO PRO LOC K SCREW FDA Start: 01-25-2021 ORIF, ankle 3MM LOW PROFILE SCREWS FDA Start: 01-25-2021 ORIF, ankle 3MM LOW PROFILE SCREWS FDA Start: 01-25-2021 ORIF, ankle 3mm low profile screw FDA Start: 01-25-2021 ORIF, ankle 3.5 cortical screw FDA Start: 01-25-2021 ORIF, ankle 3mm low profile screw FDA Start: 01-25-2021 ORIF, ankle 4mm canc fully thread screw FDA Start: 01-25-2021 ORIF, ankle 8 hole locking straight plate FDA Start: 01-25-2021 ORIF, ankle 3.5 cortical screw FDA Start: 01-25-2021 ORIF, ankle 3.5 locking screw FDA Start: 01-25-2021 ORIF, ankle 3.5 locking screw FDA Start: 01-25-2021 ORIF, ankle 3.5 locking screw FDA Start: 01-25-2021 ORIF, ankle 3.5MM LO PRO LOC K SCREW FDA Start: 01-25-2021 ORIF, ankle 3MM LOW PROFILE SCREWS FDA Start: 01-25-2021 ORIF, ankle 3MM LOW PROFILE SCREWS FDA Start: 01-25-2021 ORIF, ankle 3mm low profile screw FDA Start: 01-25-2021 ORIF, ankle 3.5 cortical screw FDA Start: 01-25-2021 ORIF, ankle 3mm low profile screw FDA Start: 01-25-2021 ORIF, ankle 4mm canc fully thread screw FDA Start: 01-25-2021 ORIF, ankle 8 hole locking straight plate FDA Start: 01-25-2021 ORIF, ankle 3.5 cortical screw FDA Start: 01-25-2021 ORIF, ankle 3.5 locking screw FDA Start: 01-25-2021 ORIF, ankle 3.5 locking screw FDA Start: 01-25-2021 ORIF, ankle 3.5 locking screw FDA Start: 01-25-2021 ORIF, ankle 3.5MM LO PRO LOC K SCREW FDA Start: 01-25-2021 ORIF, ankle 3MM LOW PROFILE SCREWS FDA Start: 01-25-2021 ORIF, ankle 3MM LOW PROFILE SCREWS FDA Start: 01-25-2021 ORIF, ankle 3mm low profile screw FDA Start: 01-25-2021 Xju-Am-M-Kind Implant - [id number] Start: 06-12-2016 Comment on above: Description: 2MM KENNY CKFIX SCREW, TITANIUM Screw Quickfix 2mm Full Thread Blue Titanium 12mm Bone 3 Prong Self Drill - [id number] Start: 06-12-2016 Wire Ilsa .045in Stainless Steel 5.5in Fixation Trocar Smooth Guide - [id number] Start: 06-12-2016 Vhb-Ce-B-Kind Implant - [id number] Start: 06-12-2016 Comment on above: Description: 3MM LOW PROFILE SCREW, LOCKING, TITANIUM, CORTICAL Sav-Jh-M-Kind Implant - [id number] Start: 06-12-2016 Comment on above: Description: 3MM LOW PROFILE SCREW, LOCKING, TITANIUM, CORTICAL Lez-Hk-A-Kind Implant - [id number] Start: 06-12-2016 Comment on above: Description: LOW PRO FILE MTP PLATE, TITANIUM, STRAIGHT - SHORT Bfz-Sh-Z-Kind Implant - [id number] Start: 06-12-2016 Comment on above: Description: K-WIRE check for [employer] Screw 3mm Full Thread T10 Hexalobe Titanium 14mm Bone Self Drill Solid Lock - [id number] Start: 06-12-2016 Screw 3mm T10 Hexalobe Full Thread Titanium 18mm Bone Self Drill Solid Lock - [id number] Start: 06-12-2016 Comment on above: Description: 3MM LOW PROFILE SCREW, LOCKING, TITANIUM, CORTICAL Screw Low Profil e Screws 3mm Full Thread T10 Hexalobe Titanium 16mm Bone - [id number] Start: 06-12-2016 Comment on above: Description: 3MM LOW PROFILE, SCREW, TITANIUM, CORTICAL Screw Quickfix 3mm T10 Partial Thread Hexalobe Low Profile Titanium 32mm - [id number] Start: 06-12-2016 Comment on above: Description: QUICKFI X SCREW, TITANIUM, PARTIALLY THREADED, CANCELLOUS Goals Date Patient Goal Desired Activity /State Functional Status Date Assessment Result Facility 04-04-2015 Are you deaf, or do you have serious difficulty hearing No 04/04/2015 4:10 PM Joanne Colon LPN No [facility] 04-04-2015 Are you blind, or do you have serious difficulty seeing, even when wearing glasses No 04/04/2015 4:10 PM Joanne Colon LPN No [facility] 04-04-2015 Do you have serious difficulty walking or climbing stairs Yes 04/04/2015 4:10 PM Joanne Colon LPN Yes [facility] 04-04-2015 Do you have difficul ty dressing or bathing No 04/04/2015 4:10 PM Joanne Colon LPN No [facility] 04-04-2015 Because of a physica l, mental, or emotional condition, do you have difficulty doing errands alone such as visiting a physician's office or shopping No 04/04/2015 4:10 PM EDT Joanne Castellon LPN [facility] NEGATED: Highlighted row Functional performance Functional status health issues are not documented Disease [facility] Work Phone: Mental Status Date Assessment Result Facility 07-15-2022 Cognitive function Voice/Name;To [facility] Work Phone: 04-04-2015 Because of a physical, mental, or emotional condition, do you have serious difficulty concentrating, remembering, or making decisions No 04/04/2015 4:10 PM EDT Joanne Castellon LPN [facility] NEGATED: Highlighted row Cognitive function [Interpretation] Cognitive status health issues are not documented Disease [facility] Work Phone: Clinical Notes 03-01-2015 to 02-14-2025 Patient InstructionsDenise Asif, OD - 02/14/2025 8:36 AM EDT Note Date & Type Note Facility 02-14-2025 Instructions Denise Asif, OD - 02/14/2025 8:38 AM EDT ASSESSMENT/PLAN: 1. PVD (posterior vitreous detachment), bilateral - ICD9: 379.21, ICD10: H43.813 (primary diagnosis) 2. Vitreous floaters, bilateral - ICD9: 379.24, ICD10: H43.393 Vitreal floaters stable both eyes. Retinas flat and intact with no apparent retinal tear or traction. Discussed symptoms of retinal tear/detachment and if seen patient will return to clinic without delay. 3. Age-related nuclear cataract, bilateral - ICD9: 366.16, ICD10: H25.13 Mild cataract in both eyes. Well tolerated at this time. Discussed possible future affect on daily activities to watch for. Monitor as instructed. 4. Myopia, bilateral - ICD9: 367.1, ICD10: H52.13 5. Regular astigmatism, bilateral - ICD9: 367.21, ICD10: H52.223 6. Presbyopia - ICD9: 367.4, ICD10: H52.4 Continue to wear her glasses with the update. Recommended yearly exams documented in this encounter [facility] 02-14-2025 Note HNO ID: [id number] Author: DENISE ASIF, CHRISTIANO Service: ? 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 PVD (posterior vitreous detachment), bilateral - ICD9: 379.21, ICD10: H43.813 (primary diagnosis) 2. Vitreous floaters, bilateral - ICD9: 379.24, ICD10: H43.393 Vitreal floaters stable both eyes. Retinas flat and intact with no apparent retinal tear or traction. Discussed symptoms of retinal tear/detachment and if seen patient will return to clinic without delay. 3. Age-related nuclear cataract, bilateral - ICD9: 366.16, ICD10: H25.13 Mild cataract in both eyes. Well tolerated at this time. Discussed possible future affect on daily activities to watch for. Monitor as instructed. 4. Myopia, bilateral - ICD9: 367.1, ICD10: H52.13 5. Regular astigmatism, bilateral - ICD9: 367.21, ICD10: H52.223 6. Presbyopia - ICD9: 367.4, ICD10: H52.4 Continue to wear her glasses with the update. Recommended yearly exams Denise Asif, OD I have confirmed and edited as necessary the relevant ophthalmic history, ROS, and the neuro exam findings as obtained by others. [facility] 02-14-2025 History of Presen t illness Narrative ASSESSMENT/PLAN: 1. PVD (posterior vitreous detachment), bilateral - ICD9: 379.21, ICD10: H43.813 (primary diagnosis) 2. Vitreous floaters, bilateral - ICD9: 379.24, ICD10: H43.393 Vitreal floaters stable both eyes. Retinas flat and intact with no apparent retinal tear or traction. Discussed symptoms of retinal tear/detachment and if seen patient will return to clinic without delay. 3. Age-related nuclear cataract, bilateral - ICD9: 366.16, ICD10: H25.13 Mild cataract in both eyes. Well tolerated at this time. Discussed possible future affect on daily activities to watch for. Monitor as instructed. 4. Myopia, bilateral - ICD9: 367.1, ICD10: H52.13 5. Regular astigmatism, bilateral - ICD9: 367.21, ICD10: H52.223 6. Presbyopia - ICD9: 367.4, ICD10: H52.4 Continue to wear her glasses with the update. Recommended yearly exams Denise Asif, OD I have confirmed and edited as necessary the relevant ophthalmic history, ROS, and the neuro exam findings as obtained by others. documented in this encounter [facility] 12-21-2024 Radiology Diagnostic study note [facility] Imaging Services [address] [place] [id number] Abdomen Complete MR#: [id number] Acct: [id number] Name: JOHANNA DOVE Rep #: [id number] : 1960 F 64 From: Kimberly Mason MD PCP: Dr. Margarita Meza DO Status: REG CLI Study:Abdomen Complete Date of Exam: Exam# [id number] Ordering Dr: Coral Meza sa DO ADDENDUM by Dr. Toby Jasso MD on 12/21/24 at 1108 No addendum needed. Reading Location: [facility] 12/21/24 1108 Date cc: Dr. Margarita Meza DO ~* Signed PROCEDURE: ABDOMEN COMPLETE 12/21/2024 REASON FOR EXAM: LEFT UPPER QUADRANT PAIN TECHNIQUE: Complete abdominal ultrasound mazariegos-scale images with color doppler. PATIENT PREPARATION: Per protocol COMPARISON: None FINDINGS: Exam slightly limited by shadowing bowel gas. Liver: Echogenic. 15.8 cm in length. Gallbladder: No visualized stones, sludge, wall thickening or pericholecystic fluid. Reportedly, sonographic Frye's was negative. Biliary tree: Unremarkable. CBD measures 4 mm. Pancreas: Partially obscured by shadowing bowel gas, grossly unremarkable as visualized. Right kidney: Unremarkable. 11.4 cm in length. Left kidney: Unremarkable. 11.7 cm in length. Spleen: Unremarkable. 10.7 cm in maximum dimension. Aorta: Unremarkable. IVC:Unremarkable. Other: No visualized free fluid. US/Abdomen Complete IMPRESSION: 1. No acute findings. If unexplained symptoms persist, consider CT. 2. Appearance of the liver most commonly associated with hepatic steatosis. Correlate with clinical and laboratory evaluation. 3. Additional description as above. Reading Location: [facility] CC: Dr. Margarita Meza DO ~ Director Operations: Signed [facility] 12-21-2024 Radiology Diagnostic study note [facility] Imaging Services [address] [place] [address] [id number] Pelvic w/ Transvaginal MR#: [id number] Acct: [id number] Name: JOHANNA DOVE Rep #: [id number] : 1960 F 64 From: Paolo Jasso MD PCP: Dr. Margarita Meza DO Status: REG CLI Study:Pelvic w/ Transvaginal Date of Exam: 12/21/24 Exam# [id number] Ordering Dr: Danielle Collins OPERATOR [employer] OPERATOR [facility] [facility]-C PROCEDURE: PELVIC W/ TRANSVAGINAL REASON FOR EXAM: Postmenopausal bleeding. TECHNIQUE: Transabdominal and transvaginal pelvic ultrasound COMPARISON: None FINDINGS: Measurements: Uterus: 6.9 cm x 4.2 cm x 3.1 cm with a volume of 46.8 mL Endometrial Thickness: 3.2 mm. Slightly thickened. Right Ovary: 2.7 cm x 1.1 cm x 1.1 cm with a volume of 1.8 mL. Left Ovary: Not visualized. TRANSABDOMINAL: Uterus: Heterogeneous appearance of the myometrium suggestive of fibroid change although no focal fibroid is seen. Endometrium: Slightly thickened measuring 3.2 mm. Right ovary: Unremarkable Left ovary: Not visualized. Other: No large pelvic mass identified. Transvaginal sonography was performed to better visualize the endometrium. TRANSVAGINAL: Uterus: Heterogeneous myometrial echotexture suggestive of fibroid change. Endometrium: Minimally thickened endometrium at 3.2 mm. Right ovary: Unremarkable Left ovary: Not identified Other adnexal findings: None. Cul-de-sac: No free intraperitoneal fluid identified. Tenderness: No tenderness US/Pelvic w/ Transvaginal IMPRESSION: Minimal endometrial thickening. Heterogeneous appearance of the myometrium. Reading Location: [facility] CC: PERCY Collins; Dr. Margarita Meza, DO ~ Director Operations: Signed [facility] 12-08-2024 Evaluation note Diagnosis Onset Date Resolution Postmenopausal bleeding acute A pril 2024 2:52pm [facility] Work Phone: 1(582) 264-360211-22-2022 Instructions* Patient Instructions* Denise Asif, OD - 07/30/2022 4:37 PM EST [...] instructed. Recommended yearly exams. [facility] History of Present illness Narrative* Denise Asif, CHRISTIANO - 07/30/2022 4:35 PM EST ASSESSMENT/PLAN: 1. Posterior vitreous detachment [...] for. Monitor as instructed. Recommended yearly exams. Denise Asif, OD I have confirmed and edited as necessary the relevant ophthalmic history, ROS, and the neuro exam findings as obtained by others. I have seen and examined this patient. [facility] NoteDischarge Summary PHYSICAL THERAPY Referral/Discharge Information: Date of Discharge: 09/10/21 Date of Last Visit: 07/05/21 Date of Evaluation: 03/22/21 Number of Attended Visits: 22 Referred by: Dr. Dillon Referred for: s/p ankle ORIF Problems/Issues Addressed: (increased pain, decreased ankle ROM/strength) Status at Discharge: (unknown) Reason for Discharge: has not attended PT for past 30 days. Signatures Electronically signed by : Nori Osborn PT; Sep 10 2021 12:08PM EST (Author) [id number] History of Present illness Narrative* Pt tolerated session well this date evidenced by ability to complete increased reps without increased pain. Continued with manual therapy d/t pt stating she believed it helped pain last session. Pt reports requiring increased UE assist with neuro re-ed this date compared to a couple weeks ago. Pt does not report increased pain after session. * Response to treatment: no change in pain. [facility] Work Phone: 1(421) 123-989505-20-2021 History of Present illness Narrative* Patient is a 60 year female who presents with signs and symptoms consistent with diagnosis of L ankle trimalleolar fx s/p repair with hardware 01/25/21: increased pain, decreased ankle AROM, decreasedankle/LE strength (NT post-op), decreased ability as assessed by LEFS, impaired gait. Patient wouldbenefit from skilled PT to decrease pain, increase [...] session, patient reports no increased pain vs pre-evaluation. * Clinical Presentation: Stable and/or uncomplicated characteristics. * Level of Complexity: low * Problem List: activity limitations, ADLs/IADLs/self care skills, balance, decreased functional level, decreased knowledge of HEP, fall risk, flexibility, gait/locomotion, pain, participation restrictions, posture, range of motion/joint mobility and strength. [facility] Work Phone: [phone] 983-376805-20-2021 History of Present illness NarrativePt has attended 22 visits of skilled PT [...] bal independently at home via a progressive HEP,which has been provided. Therefore, at this time skilled PT will be placed on hold for 30 days pending trial of self-management. Should pt elect to resume PT, cont 1x/wk for 8 weeks or 8 visits. [facility] Work Phone: [phone]) 634-615305-20-2021 Reason for visit Narrative* Initial Evaluation . L trimalleolar ankle fracture s/p repair with hardware 01/25/21. * Referred by: Dr. Dillon [facility] Work Phone: [phone] History of Past illness Narrative* Problem Noted Date Resolved Date Foot pain 03/01/2015 02/07/2017 Abdominal pain 01/17/2014 02/07/2017 Last Assessment & Plan: She has pain in the left lower quadrant on and off, sometimes she feels like there is a bulge, there. The pain is aggravated during her flares of IBS symptoms. Abdominal pain, right lower quadrant 09/06/2014 documented as of this encounter (statuses as of 07/30/2022) [facility] Diagnosis Onset Date Resolution Status Hx of colonic polyps acute Cardiac murmur acute Ectopic cardiac beats acute Essential (primary) hypertension chronic Pure hypercholesterolemia [facility] Work Phone: Evaluation note* Diagnosis Posterior vitreous detachment of right eye- Primary Vitreous degeneration Vitreous floaters of both eyes Dry eye syndrome of both eyes Nuclear sclerotic cataract of both eyes Senile nuclear sclerosis documented in this encounter [facility] Diagnosis Onset Date Resolution Status Cardiac murmur acute Chest pain acute Ectopic cardiac beats acute Essential (primary) hypertension chronic Pure hypercholesterolemia [facility] Work Phone: Evaluation note* Diagnosis Encounter to establish care- Primary Other reasons for seeking consultation IBS (irritable bowel syndrome) Irritable bowel syndrome Fibromyalgia Mylagia and myositis, unspecified Hyperlipidemia Other and unspecified hyperlipidemia Hypertension Unspecified essential hypertension Abdominal pain Abdominal pain, unspecified site Breast screening, unspecified- Primary Hyperlipidemia Other and unspecified hyperlipidemia Fibromyalgia Mylagia and myositis, unspecified Hypertension Unspecified essential hypertension Hyperlipidemia- Primary Other and unspecified hyperlipidemia Hypertension Unspecified essential hypertension Routine health maintenance Routine general medical examination at a health care facility Chest pain Chest pain, unspecified Hyperlipidemia- Primary Other and unspecified hyperlipidemia Fibromyalgia Mylagia and myositis, unspecified Hypertension Unspecified essential hypertension Routine health maintenance Routine general medical examination at a health care facility Insomnia Insomnia, unspecified Menopause Symptomatic menopausal or female climacteric states Insomnia- Primary Insomnia, unspecified Fibromyalgia Mylagia and myositis, unspecified Hyperlipidemia Other and unspecified hyperlipidemia Hypertension Unspecified essential hypertension IBS (irritable bowel syndrome) Irritable bowel syndrome Hyperlipidemia- Primary Other and unspecified hyperlipidemia Essential hypertension Unspecified essential hypertension Hyperlipidemia, unspecified hyperlipidemia- Primary Fibromyalgia Mylagia and myositis, unspecified Insomnia, unspecified type Essential hypertension Unspecified essential hypertension Obesity due to excess calories, unspecified obesity severity Irritable bowel syndrome with diarrhea- Primary Irritable bowel syndrome Insomnia, unspecified type Essential hypertension Unspecified essential hypertension ABDULAZIZ (obstructive sleep apnea) Obstructive sleep apnea (adult) (pediatric) Vitamin D deficiency Unspecified vitamin D deficiency Unspecified constipation Non morbid obesity due to excess calories Essential hypertension- Primary Unspecified essential hypertension Hyperlipidemia, unspecified hyperlipidemia type Tension-type headache, not intractable, unspecified chronicity pattern Anxiety and depression Dysthymic disorder ABDULAZIZ (obstructive sleep apnea) Obstructive sleep apnea (adult) (pediatric) PVD (posterior vitreous detachment), bilateral- Primary Vitreous floaters, bilateral Age-related nuclear cataract, bilateral Senile nuclear sclerosis Myopia, bilateral Myopia Regular astigmatism, bilateral Presbyopia documented in this encounter [facility]* Patient [...] soreness at the end of treatment. [facility] Work Phone: History of Present illness Narrative* Patient ID confirmed using Name and . * Patient wearing mask throughout session today d/t COVID-19 precautions. * Patient with good tolerance to treatment, no c/o increased pain/discomfort in clinic. Emphasis thisdate on ROM and improving WB acceptance and compliance with 50% PWB. [facility] Work Phone: History of Present illness NarrativePatient tolerated treatment without pain. Reports tightness in plantar region of left foot. Patient has good form/understanding with ther-ex and reports compliance with HEP. Continue with left footROM/ strength to improve flexibility/ambulation/balance.[facility] Work Phone: History of Present illness Narrative* Fair tolerance with TE. About 75% with weight shifts today regarding the left LE. Increased DF to blue Thera-Band which patient tolerated well. STM to foot with tenderness and tightness noted. Reliefnoted following session. * Response to treatment: decreased pain. * Patient was able to complete today's treatment with some difficulty. [facility] Work [facility]: Hisvfxp of Present illness Narrative* Fair tolerance with [...] to complete today's treatment with some difficulty. [facility] Work Phone: Hiszmmo of Present illness Narrative* Fair tolerance with seated stretches and ankle 4-ways. No c/o increased sx.'s noted. Trial step upsand slant board this date which patient notes some soreness but tolerable. Trial IASTM per plan, toplantar fascia to decrease tightness. * Response to treatment: no change in pain. * Patient was able to complete today's treatment with some difficulty. [facility] Work Phone: History of Present illness Narrative* Patient identified by name & . Patient wore a mask during treatment d/t Covid-19 precautions. * Treatment consisted of * . [facility] Work Phone: History of Present illness Narrative* [...] bars. HEP progressed today and handouts given. [facility] Work [facility]: History of Present illness Narrative* Patient identified by name & . Patient wore a mask during treatment d/t Covid-19 precautions. * Treatment consisted of * Ambulating with boot, but without crutch some of the time in rehab area. [facility] Work Phone: History of Present illness Narrative* [...] treatment. Pain level the same post treatment. [facility] Work Phone: History of Present illness Narrative* Patient identified by name & . Patient wore a mask during treatment d/t Covid-19 precautions. * Treatment consisted of ther ex's and STW, both manually and with hawk fiber glass worker tools. Patient arrived 15 min late today and unable to complete all ther ex's this session. Patient pain level the same posttreatment. [facility] Work [facility]: History of Present illness Narrative* [...] increase in L ankle pain post treatment. [facility] Work Phone: History of Present illness Narrative* Patient identified by name & . Patient wore a mask during treatment d/t Covid-19 precautions. * Treatment consisted of NMR activities and ther ex's. Patient ambulating without crutches today. Decreased UE assist needed with NMR activities. Improved gait, without assistive device, improved stability of L ankle. Symptoms the same pre and post treatment. [facility] Work [facility]: History of Present illness Narrative* [...] to complete today's treatment with some difficulty. [facility] Work Phone: history of Present illness Narrative* [...] with decreased pain to 3/10 post treatment. [facility] Work Phone: Histxvz of Present illness Narrative* Patient identified by [...] today pretreatment with slight improvement post treatment. [facility] Work Phone: History of Present illness Narrative* Patient identified by name & . Patient wore a mask during treatment d/t Covid-19 precautions. * Treatment consisted of ther ex's, NMR activities and manual STW done for left ankle ROM, strengthening, balance/stability and decreased restrictions. Patient tolerated treatment well with no exacerbation of symptoms. * Response to treatment: no change in pain. [facility] Work Phone: History of Present illness NarrativePatient identified by name & . Patient wore a mask during treatment d/t Covid-19 precautions. Treatment consisted of ther ex's and NMR activities. Progressed ex's and added NMR activity of hurdles. Patient tolerated progression of treatment well with some slight increase in left ankle pain post treatment and fatigue. [facility] Work Phone: Reason for referral (narrative)No reason for referral information availableWThe [facility] Work Phone: Assessments Diagnosis Pain - Primary Generalized pain Abnormal laboratory test res ult Other abnormal clinical finding Primary osteoarthritis of sanam th hands Summary Purpose Family History No Family History Records Found Relationship Condition Age at Onset Recorded Date/T benedict father Cardiac disease Unknown sister Myocardial infarction Unknown mother Cardiac arrhythmia Unknown Cardiac disease Unknown Diabetes mellitus Unknown Congestive heart failure Unknown Disorder of thyroid Unknown Diverticulitis Unknown brother Cardiac arrhythmia Unknown Myocardial infarction Unknown Arteriosclerotic vascular disease Unknown sister Sarcoidosis Unknown daughter Disorder of thyroid Unknown uncle Malignant neoplasm of colon Unknown Relationship Condition Age at Onset Recorded Date/T benedict father Cardiac disease Unknown sister Myocardial infarction Unknown mother Cardiac arrhythmia Unknown Cardiac disease Unknown Diabetes mellitus Unknown Congestive heart failure Unknown Disorder of thyroid Unknown Diverticulitis Unknown brother Cardiac arrhythmia Unknown Myocardial infarction Unknown Arteriosclerotic vascular disease Unknown Arrhythmogenic right ventricular cardiomyopathy Unknown sister Sarcoidosis Unknown daughter Disorder of thyroid Unknown uncle Malignant neoplasm of colon Unknown Advance Directives No Advanced Directives Records FoundDocuments on File Type Date Recorded 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 Advance Directives and Livin g Will 11/09/2020 12:00 AM Documents on File Type Date Recorded 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 Advance Directives and Living Will Advance Directive Response Recorded Date/ Time Advance Directives No June 23, 2018 9:33am Living Will No July 11 9:00am Power of Lpc No July 11, 2022 9:00am Advance Directive Response Recorded Date/ Time Advance Directives No June 23, 2018 10:33am Living Will No July 11 10:00am Power of Lpc No July 11, 2022 10:00am Advance Directive Response Recorded Date/ Time Advance Directives No June 23, 2018 10:33am Chief Complaint and Reason for Visit Chief Complaint Admit Date PMB December 08, 2024 2:52 pm LUQ PAIN, PMB December 21, 2024 6:5 3am Reason for Visit Admit Date Postmenopausal bleeding December 08, 2024 2:52pm Chief Complaint Amb Documentation SCREENING 1 Y FU Reason for Visit Hx of colonic polyps Cardiac murmur Ectopic cardiac beats Essential (primary) hypertension Pure hypercholesterolemia Chief Complaint Amb Documentation SCREENING 1 Y FU MURMUR Reason for Visit Hx of colonic polyps Cardiac murmur Ectopic cardiac beats Essential (primary) hypertension Pure hypercholesterolemia Chief Complaint Amb Documentation SCREENING 1 Y FU MURMUR Cough Reason for Visit Hx of colonic polyps Cardiac murmur Ectopic cardiac beats Essential (primary) hypertension Pure hypercholesterolemia Chief Complaint 15 M FU/PREV PFM Reason for Visit Cardiac murmur Chest pain Ectopic cardiac beats Essential (primary) hypertension Pure hypercholesterolemia Chief Complaint Admit Date PMB December 08, 2024 2:52 pm Chief Complaint Admit Date PMB December 08, 2024 2:52 pm LUQ PAIN, PMB December 21, 2024 6:5 3am screening January 17, 2025 4:00p m Medications Administered Section Active Administered Medications - [...] ized section and content) DATE CREATED AUTHOR 03/03/2018 [facility] DATE CREATED AUTHOR AUTHOR'S ORGANIZ ATION 03/03/2018 [facility] DATE CREATED AUTHOR AUTHOR'S ORGANIZ ATION 08/17/2018 [facility] DATE CREATED AUTHOR AUTHOR'S ORGANIZ ATION 08/17/2018 [facility] DATE CREATED AUTHOR AUTHOR'S ORGANIZ ATION 08/17/2018 [facility] DATE CREATED AUTHOR AUTHOR'S ORGANIZ ATION 10/27/2018 [facility] DATE CREATED AUTHOR AUTHOR'S ORGANIZ ATION 12/03/2020 [facility] DATE CREATED AUTHOR AUTHOR'S ORGANIZ ATION 09/10/2021 [employer] DATE CREATED AUTHOR AUTHOR'S ORGANIZ ATION 01/22/2025 [facility] DATE CREATED AUTHOR AUTHOR'S ORGANIZ ATION 02/14/2025 [facility] DATE CREATED AUTHOR AUTHOR'S ORGANIZ ATION 03/01/2025 [facility] Reason for Visit (unrecogniz ed section and content) Reason Comments Floaters Both Eyes Flashes Right Eye for 1 moises h Reason Comments Blurred Vision Both Eyes Floaters Both Eyes Source Comments (unrecognize d section and content) In the event this informatio n is protected by the Federal Confidentiality of Alcohol and Drug Abuse Patient Records regulations: The Federal rules restrict any use of the information to criminally investigate or prosecute any alcohol or drug abuse patient.[facility] the event this information is protected by the Federal Confidentiality of Alcohol and Drug Abuse Patient Records regulations: The Federal rules restrict any use of the information to criminally investigate or prosecute any alcohol or drug abuse patient.[facility] Care Teams (unrecognized sec tion and content) Vice President Regulatory Relationship Specialty Start Date End Date Margarita Meza DO [address] [place] [address] PCP - General Family Medicine 08/24/18 Team Status: Active Member Role Status Dates Dr. Margarita Meza DO Family Provider Active Dr. Margarita Meza DO Primary Care Provider Active Team Status: Inactive Member Role Status Dates Dr. Margarita Meza DO Primary Care Provider, Referring P rovider Active Dr. Romulo Mcguire MD Attending Provider Active Team Status: Active Member Role Status Dates Dr. Margarita Meza DO Primary Care Provider Active Elinor Blankenship Attending Provider Active Team Status: Active Member Role Status Dates Dr. Margarita Meza DO Primary Care Provider Active Dr. Jenise Edmonds MD Attending Provi abelardo, Referring Provider, Other Provider Active Team Status: Active Member Role Status Dates Dr. Margarita Meza DO Primary Care Provider Active Dr. Romulo Mcguire MD Attending Provider Active Team Status: Inactive Member Role Status Dates Dr. Margarita Meza DO Primary Care Provider Active Dr. Jenise Edmonds MD Attending Provider, Referring Provider Active Team Status: Inactive Member Role Status Dates Dr. Margarita Meza DO Primary Care Provider, Attending P rovider Active Team Status: Inactive Member Role Status Dates Dr. Margarita Meza DO Primary Care Provider Active Dr. Romulo Mcguire MD Attending Provider, Referring Provider Active Team Status: Inactive Member Role Status Dates Dr. Margarita Meza DO Primary Care Provider Active Dr. Elan Brasher DO Attending Provider, Referring P rovider Active Team Status: Inactive Member Role Status Dates Dr. Margarita Meza DO Primary Care Provider, Referring P rovider Active Bibi Blas OPERATOR [employer], OPERATOR [employer]-C Attending Provider Active Team Status: Inactive Member Role Status Dates Dr. Margarita Meza DO Primary Care Provide r, Attending Provider, Referring Provider Active Team Status: Inactive Member Role Status Dates Dr. Margarita Meza DO Primary Care Provider Active Start: December 08, 2024 End: December 08, 2024 Dr. Margarita Meza DO Referring Provider Active St art: December 08, 2024 End: December 08, 2024 Danielle Collins OPERATOR [employer], OPERATOR [employer]-C Attending Provider Active Start: December 08, 2024 End: December 08, 2024 Team Status: Inactive Member Role Status Dates Dr. Margarita Meza DO Primary Care Provider Active Start: December 08, 2024 End: December 08, 2024 Danielle Collins OPERATOR [employer], OPERATOR [employer]-C Attending Provider Active Start: December 08, 2024 End: December 08, 2024 Danielle Collins OPERATOR [employer], OPERATOR [employer]-C Referring Provider Active Start: December 08, 2024 End: December 08, 2024 Team Status: Active Member Role Status Dates Dr. Margarita Meza DO Primary Care Provider Active Team Status: Inactive Member Role Status Dates Dr. Margarita Meza DO Primary Care Provider Active Start: December 21, 2024 End: December 21, 2024 Dr. Margarita Meza DO Attending Provider Active St art: December 21, 2024 End: December 21, 2024 Dr. Margarita Meza DO Referring Provider Active St art: December 21, 2024 End: December 21, 2024 Team Status: Inactive Member Role Status Dates Dr. Margarita Meza DO Primary Care Provider Active Start: January 17, 2025 End: January 17, 2025 Dr. Mell Roman DO Attending Provider Activ e Start: January 17, 2025 End: January 17, 2025 Dr. Mell Roman DO Referring Provider Activ e Start: January 17, 2025 End: January 17, 2025 Vice President Regulatory Relationship Specialty Start Date End Date Margarita Meza DO [address] [place] [address] PCP - General Family Medicine 08/24/18 Goals (unrecognized section and content) Goals may be documented in a n alternate sectionGoals may be documented in an alternate sectionGoals may be documented in an alternate sectionGoals may be documented in an alternate section FOR RECORDS PERTAINING TO PATIENTS WHO ARE [...] BE BASED ON THE PRIMARY CLINICAL RECORDS. [employer] [facility]. provides no warranty or guarantee of the accuracy or completeness of information in this document.
--- OUTSIDE RECORDS SUMMARY | 2025-03-10 21:51 | XMS RPT_ITS | CCD ---
Author Organization [facility] Care Team Providers Care Engraver Lettering Name Role Phone Unavailable Unavailable Unavailable Malys, Margarita A Unavailable Stadnick, Yann S Unavailable Unavailable Stadnick, Yann S Unavailable Unavailable Stadnick, Yann S Unavailable Unavailable Stadnick, Yann S Unavailable Unavailable STADNICK, YANN CORRINE Unavailable Unavailab [place] Unavailable Unavailable IM[facility] Unavailable Unavailable MORE LUNA Unavailable Unavailable MORE LUNA Unavailable Unavailable MORE LUNA Unavailable Unavailable Malys, Margarita A Admitting Unavailable Malys, Margarita A Attending Unavailable Ammonys, Margarita A Primary Care Unavailable Deni Ballard Admitting Unavailable Deni Ballard Attending Unavailable Malys, Margarita A Primary Care Unavailable Malys, Margarita A Primary Care Provider [phone] Felicia Medellin Unavailable Unavailable Malys, Margarita A Unavailable Unavailable Renetta Waite Unavailable Unavailable MARTHA BALL Attending Unavailable DENISE DICKSON Referring Unava ilable DENISE DICKSON Admitting Unava ilable MALYS, MARGARITA A Primary Care Unavailable MALYS, MARGARITA A Primary Care Unavailable GABI LONG Attending Unavailable Malys, Margarita A Unavailable Dr. Margarita Meza Primary Care Provider [phone] Elinor Blankenship Attending Provider Unavailable Dr. Jenise Edmonds Attending Provider [phone] Dr. Jenise Edmonds Referring Provider [phone] Dr. Jenise Edmonds Other Provider [phone] Margarita Meza Referring Provider Dr. Romulo Mcguire Attending Provider Derrick CORREIA, Margarita Godoy Primary Care Provider Derrick, Dr. Avila Primary Care Provider Derrick, Dr. Avila Referring Provider Wan PLUMBING FOREMAN, PLUMBING FOREMAN-C Bibi Attending Provider Derrick CORREIA, Dr. Avila Primary Care Provider [phone] Derrick CORREIA, Dr. Avila Referring Provider [phone] Karina PLUMBING FOREMAN-CDanielle Attending Provider [phone] Karina PLUMBING FOREMAN-CDanielle Referring Provider [phone] Derrick CORREIA, Dr. Avila Attending Provider Miguel Monzon DO, Dr. Monte Attending Provider Miguel Monzon DO, Dr. Monte Referring Provider Malys, Margarita Primary Care Unavailable Karina PLUMBING FOREMAN, Danielle Attending Unavailable [place] PLUMBING FOREMANRubiay Referring Unavailable Malys, Margarita Primary Care Unavailable [...] Unavailable Malys, Margarita Primary Care Unavailable Karina PLUMBING FOREMAN, Danielle Attending Unavailable Malys, Margarita Referring Unavailable [...] Propensity to adverse reactions (disorder) 7 Intolerance [facility] Repository Medications Current Medications Medication Drug [...] D3 ORAL Take by mouth daily. Active eqovrvv-rjihbmvye-jcvcnrq D2 500 mg-50 mg-100 unit chewable tablet (11 sources) Start: 09-23-2023 take 3 tablets by mouth once daily aijavfd-wkzugsiie-gjjywdf D2 500 mg-50 mg-100 unit chewable tablet Active 3 TABLET PO DAILY September 23, 2023 2:53pm Start: 07-24-2022 End: 09-23-2023 take 3 tablets by mouth once daily rfgmoym-kwqmgkisc-fiiovxv D2 500 mg-50 mg-100 unit chewable tablet Discontinued 3 TABLET PO DAILY July 24, 2022 4:53pm September 23, 2023 2:54pm Start: 07-24-2022 take 3 tablets by mo uth once daily rwjhyhv-fxgnjhutn-esyiywd D2 500 mg-50 mg-100 unit chewable tablet Active 3 TABLET PO DAILY July 24, 2022 3:53pm Start: 05-07-2018 End: 07-24-2022 take 1 tablet by mouth once daily leygeoy-iqnckhzfu-ioszypc D2 500 mg-50 mg-100 unit chewable tablet Discontinued 1 TABLET PO DAILY May 07, 2018 12:00am July 24, 2022 4:55pm Start: 05-07-2018 End: 07-24-2022 take 1 tablet by mouth once daily uxbbeny-hpiokkkaj-khlokor D2 500 mg-50 mg-100 unit chewable tablet Discontinued 1 TABLET PO DAILY May 06, 2018 11:00pm July 24, 2022 3:55pm Hklzuec-Vcgxnfnby-Hdayfsh D2 500-50-100 mg-mg-unit tablet,chewable (9 sources) Start: 09-23-2023 Calcium-Magnes ium-Vitamin D2 500-50-100 mg-mg-unit tablet,chewable Active 3 {tbl} PO DAILY as needed for supplement September 23, 2023 2:53pm Start: 07-24-2022 End: 09-23-2023 Pgskulf-Wxlxiyvbx-Izcfvib D2 500-50-100 mg-mg-unit tablet,chewable Discontinued 3 {tbl} PO DAILY July 24, 2022 4:53pm September 23, 2023 2:54pm Start: 05-07-2018 End: 07-24-2022 Lhsipck-Xbkjkpgrz-Hnfaoqf D2 500-50-100 mg-mg-unit tablet,chewable Discontinued 1 {tbl} PO DAILY May 07, 2018 12:00am July 24, 2022 4:55pm cetirizine hydrochloride 10 mg oral tablet (20 sources) Histamine-1 Receptor Antagonist Start: 06-10-2016 End: 07-24-2020 take 1 tablet by mouth once daily cetirizine (ZYRTEC) 10 mg tablet Take 1 tablet by mouth once daily. 0 06/10/2016 Active Comment on above: Take 1 tablet by [facility] once daily. cholecalciferol 1.25 mg oral capsule (17 sources) Vitamin D Start: 03-23-2024 take 1 capsule by mouth every other week as needed Cholecalciferol (Vitamin D3) 1,250 mcg (50,000 unit) capsule Active 1250 ug PO every 2 weeks as needed March 23, 2024 1:30pm Start: 05-10-2021 take 1 capsule by [facility] every week cholecalciferol, Vitamin D3, (VITAMIN D3) [...] Comment on above: TAKE 1 CAPSULE BY [facility] once weekly Clobetasol (3 sources) Corticosteroid [...] Comment on above: Take 1 tablet by [facility] twice daily. COMPOUNDED PRESCRIPTION (2 sources) Start: [...] Comment on above: Take 1 tablet by [facility] daily at bedtime. DULoxetine 30 mg delayed [...] 24, 2019 9:31am take 1 capsule by [facility] once daily DULoxetine (CYMBALTA) 30 mg capsule [...] on above: Take 1 capsule by [facility] once daily. hydroCHLOROthiazide 25 mg oral [...] Comment on above: Take 1 tablet by [facility] once daily. hydroCHLOROthiazide 25 mg / losartan potassium 100 mg oral tablet (4 sources) Thiazide Diuretic, Angiotensin 2 Receptor Traci Start: 12-12-2024 losartan-hydroCHL OROthiazide (HYZAAR) 100-25 mg per tablet 12/12/2024 Active Start: 01-08-2024 Losartan-[place] chlorothiazide (Hyzaar) 100-25 mg tablet Active 1 [...] January 26, 2021 July 18, 2021 4:40pm [id number] actuat albuterol 0.09 mg/actuat metered dose [...] By: Toby Jasso on 01-18-2025 Study report [facility] Imaging Services [address] [place] [address] SCRN MAMM (CAD)W/CRISTIAN BILAT MR#: [id number] Acct: [id number] Name: JOHANNA DOVE Rep #: [id number] : 1960 F 64 From: Paolo Jasso MD PCP: Dr. Margarita Meza DO Status: [facility] Study:SCRN MAMM (CAD)W/CRISTIAN BILAT Date of Exa m: 01/17/25 Exam# [id number] Ordering Dr: Mell Chávez DO EXAM: SCRN [...] be mailed to the patient. Reading Location: [id number] CC: Dr. Mell Roman DO; Dr. Margarita Meza DO ~ Back Roll Lathe Operator: Signed [facility] SCRN MAMM (CAD)W/CRISTIAN BILATo n 01-17-2025 SCRN MAMM (CAD)W/CRISTIAN BILAT [facility] Imaging Services [address] [place] [address] SCRN MAMM (CAD)W/CRISTIAN BILAT MR#: [id number] Acct: [id number] Name: JOHANNA DOVE Rep #: [id number] : 1960 F 64 From: Toby sorto MD PCP: Dr. Margarita Meza DO Status: REG CLI Study: SCRN MAMM (CAD)W/CRISTIAN BILAT Date of Exam: 01/06 11/02 Exam# [id number] Ordering Dr: Mlel Roman DO EXAM: SCRN MAMM (CAD)W/CRISTIAN BILAT [...] be mailed to the patient. Reading Location: [facility] CC: Dr. Mell Roman DO; Dr. Margarita Meza DO Back Roll Lathe Operator: Signed Normal [facility] Abdomen Completeon Abdomen Complete [facility] Imaging Services [address] [place] [address] Abdomen Complete MR#: [id number] Acct: [id number] Name: JOHANNA DOVE Rep #: [id number] : 1960 F 64 From: Elan Mason MD PCP: Dr. Margarita Meza DO Status: REG CLI Study: Abdomen Complete Date of Exam: 12/21/24 Exam# [id number] Ordering Dr: Margarita Meza DO ADDENDUM by Dr. Toby Jasso MD on 12/21/24 at 1108 No addendum needed. Reading Location: [facility] 12/21/24 1108 Date cc: Dr. Margarita [...] 3. Additional description as above. Reading Location: [id number] CC: Dr. Margarita Meza DO Back Roll Lathe Operator: Signed Normal [facility] Absolute lymphocyte countOrd ered By: Margarita Meza on 12-21-2024 Lymphocytes Auto (Unsp spec) [#/Vol] 2.48 10*3/uL 0.83-4.51 [facility] Absolute neutrophil countOrd ered By: Margarita Meza on 12-21-2024 Neutrophils (Bld) [#/Vol] 2.8 10*3/uL 2.0-7.7 [facility] Anion gap in Serum or Plasma Ordered By: Margarita Meza on 12-21-2024 Anion gap [Moles/Vol] 13 mmol/L 5-15 [facility] Automated lymphocyte count a s percentage of total leukocytesOrdered By: Margarita Meza on 12-21-2024 Lymphocytes/100 WBC Auto (Unsp spec) 42.2 % High 19-41 [facility] BUN/creatinine ratioOrdered By: Margarita Meza on 12-21-2024 Urea nitrogen/Creatinine [Mass ratio] 20.8 mg/mg High 10-20 [facility] Basophil percentageOrdered B y: Margarita Meza on 12-21-2024 Basophils/100 WBC (Bld) 0.7 % 0-1 [facility] Bilirubin, totalOrdered By: Margarita Meza on 12-21-2024 Bilirubin [Mass/Vol] 0.41 mg/dL 0.00-1.30 [facility] CBC W/Diff, Automatedon 12-07 Absolute Lymph 2.48 X10 3/uL Normal 0.83-4.51 [facility] Comment on above: Performed By: #### L 100.0100, L501.74706, L500.4050, L506.1001, L501.9985, L500.4100, L501.9520, L506.0400 ####[facility] [address] [place], [address] Absolute Neut 2.8 X10 3/uL Normal 2.0-7.7 [facility] Comment on above: Performed By: #### L 100.0100, L501.58182, L500.4050, L506.1001, L501.9985, L500.4100, L501.9520, L506.0400 ####[facility] [address] [place], [address] Basophils/100 WBC (Bld) 0.7 % Normal 0-1 [facility] Comment on above: Performed By: #### L 100.0100, L501.08072, L500.4050, L506.1001, L501.9985, L500.4100, L501.9520, L506.0400 ####[facility] [address] [place], [address] Eosinophils/100 WBC (Bld) 3.7 % Normal 0-5 [facility] Comment on above: Performed By: #### L 100.0100, L501.81819, L500.4050, L506.1001, L501.9985, L500.4100, L501.9520, L506.0400 ####[facility] [address] [place], [address] Erythrocyte distribution width (RBC) [Ratio] 13.1 % Normal 11.6-14.6 [facility] Comment on above: Performed By: #### L 100.0100, L501.87099, L500.4050, L506.1001, L501.9985, L500.4100, L501.9520, L506.0400 ####[facility] [address] [place], [address] Hematocrit (Bld) [Volume fraction] 39.5 % Normal 37-47 [facility] Comment on above: Performed By: #### L 100.0100, L501.39477, L500.4050, L506.1001, L501.9985, L500.4100, L501.9520, L506.0400 ####[facility] [address] [place], [address] Hemoglobin (Bld) [Mass/Vol] 13.3 g/dL Normal 12.0-15.0 [facility] Comment on above: Performed By: #### L 100.0100, L501.67722, L500.4050, L506.1001, L501.9985, L500.4100, L501.9520, L506.0400 ####[facility] [address] [place], [address] IG% 0.300 Normal 0.0-0.9 [facility] Comment on above: Result Comment: IG% - Immature Granulocytes (promyelocytes, myelocytes and metamyelocytes) > 1% indicates that a LEFT SHIFT is Present. Performed By: #### L 100.0100, L501.40151, L500.4050, L506.1001, L501.9985, L500.4100, L501.9520, L506.0400 ####[facility] [address] [place], [address] Lymphocytes/100 WBC (Bld) 42.2 % High 19-41 [facility] Comment on above: Performed By: #### L 100.0100, L501.55366, L500.4050, L506.1001, L501.9985, L500.4100, L501.9520, L506.0400 ####[facility] [address], [address] MCH (RBC) [Entitic mass] 30.9 pg Normal 27.0-32.0 [facility] Comment on above: Performed By: #### L 100.0100, L501.93544, L500.4050, L506.1001, L501.9985, L500.4100, L501.9520, L506.0400 ####[facility] [address] [place], [address] MCHC (RBC) [Mass/Vol] 33.7 g/dL Normal 32-36 [facility] Comment on above: Performed By: #### L 100.0100, L501.77576, L500.4050, L506.1001, L501.9985, L500.4100, L501.9520, L506.0400 ####[facility] [address], [address] MCV (RBC) [Entitic vol] 91.9 fL Normal 81-99 [facility] Comment on above: Performed By: #### L 100.0100, L501.39864, L500.4050, L506.1001, L501.9985, L500.4100, L501.9520, L506.0400 ####[facility] [address] [place], [address] Monocytes/100 WBC (Bld) 4.6 % Normal 0-10 [facility] Comment on above: Performed By: #### L 100.0100, L501.47245, L500.4050, L506.1001, L501.9985, L500.4100, L501.9520, L506.0400 ####[facility] [address] [place], [address] Neutrophils/100 WBC (Bld) 48.5 % Normal 47-70 [facility] Comment on above: Performed By: #### L 100.0100, L501.90367, L500.4050, L506.1001, L501.9985, L500.4100, L501.9520, L506.0400 ####[facility] [address] [place], [address] Nucleated RBC (Bld) [#/Vol] 0 10*3/uL Normal 0-5 [facility] Comment on above: Performed By: #### L 100.0100, L501.70770, L500.4050, L506.1001, L501.9985, L500.4100, L501.9520, L506.0400 ####[facility] [address] [place], [address] Platelet mean volume (Bld) [Entitic vol] 11.0 fL Normal 6.2-12.0 [facility] Comment on above: Performed By: #### L 100.0100, L501.31305, L500.4050, L506.1001, L501.9985, L500.4100, L501.9520, L506.0400 ####[facility] [address] [place], [address] Platelets (Bld) [#/Vol] 277 10*3/uL Normal 150-450 [facility] Comment on above: Performed By: #### L 100.0100, L501.52275, L500.4050, L506.1001, L501.9985, L500.4100, L501.9520, L506.0400 ####[facility] [address] [place], [address] RBC (Bld) [#/Vol] 4.30 10*6/uL Normal 4.2-5.4 [facility] Comment on above: Performed By: #### L 100.0100, L501.13864, L500.4050, L506.1001, L501.9985, L500.4100, L501.9520, L506.0400 ####[facility] [address] [place], [place], [phone]) RDW SD 44.3 fl High 35.1-43.9 [facility] Comment on above: Performed By: #### L 100.0100, L501.46281, L500.4050, L506.1001, L501.9985, L500.4100, L501.9520, L506.0400 ####[facility] [address] [place], [place], [phone] WBC (Bld) [#/Vol] 5.9 10*3/uL Normal 4.4-11.0 [facility] Comment on above: Performed By: #### L 100.0100, L501.39825, L500.4050, L506.1001, L501.9985, L500.4100, L501.9520, L506.0400 ####[facility] [address] [place], [place], [phone] Calculated very low density lipoprotein (VLDL) cholesterol measurementOrdered By: Margarita Meza on 12-21-2024 Calculated very low density lipoprotein (VLDL) cholesterol measurement 15 mg/dL 5-40 [facility] VLDL Cholesterol 15 mg/dL -40 [facility] Carbon dioxide, total [Moles /volume] in Central venous bloodOrdered By: Margarita Meza on 12-21-2024 CO2 [Moles/Vol] 24.8 mmol/L 21.0-32.0 [facility] Chloride assayOrdered By: Coral Meza on 12-21-2024 Chloride [Moles/Vol] 103 mmol/L 98-108 [facility] Comprehensive Metabolic Prof ilon 12-21-2024 Albumin [Mass/Vol] 4.2 g/dL Normal 3.4-4.8 [facility] Comment on above: Order Comment: CBCD Performed By: #### L 100.0100, L501.01242, L500.4050, L506.1001, L501.9985, L500.4100, L501.9520, L506.0400 ####[facility] [address] [place], [address] Albumin/Globulin [Mass ratio] 1.4 {ratio} Normal 0.9-2.4 [facility] Comment on above: Order Comment: CBCD Performed By: #### L 100.0100, L501.00386, L500.4050, L506.1001, L501.9985, L500.4100, L501.9520, L506.0400 ####[facility] [address] [place], [place], [phone] ALK PHOS 77 U/L Normal 35-104 [facility] Comment on above: Order Comment: CBCD Performed By: #### L 100.0100, L501.13140, L500.4050, L506.1001, L501.9985, L500.4100, L501.9520, L506.0400 ####[facility] [address] [place], [place], [id number] ALT [Catalytic activity/Vol] 25 U/L Normal <=34 [facility] Comment on above: Order Comment: CBCD Performed By: #### L 100.0100, L501.67734, L500.4050, L506.1001, L501.9985, L500.4100, L501.9520, L506.0400 ####[facility] [address] [place], [place], [phone] AST [Catalytic activity/Vol] 24 U/L Normal <=31 [facility] Comment on above: Order Comment: CBCD Performed By: #### L 100.0100, L501.09404, L500.4050, L506.1001, L501.9985, L500.4100, L501.9520, L506.0400 ####[facility] [address] [place], [address] Bilirubin [Mass/Vol] 0.41 mg/dL Normal 0.00-1.30 [facility] Comment on above: Order Comment: CBCD Performed By: #### L 100.0100, L501.64487, L500.4050, L506.1001, L501.9985, L500.4100, L501.9520, L506.0400 ####[facility] [address] [place], [address] BUN/CRE 20.8 RATIO High 10-20 [facility] Comment on above: Order Comment: CBCD Performed By: #### L 100.0100, L501.36476, L500.4050, L506.1001, L501.9985, L500.4100, L501.9520, L506.0400 ####[facility] [address] [place], [address] Calcium [Mass/Vol] 9.4 mg/dL Normal 7.6-11.0 [facility] Comment on above: Order Comment: CBCD Performed By: #### L 100.0100, L501.39070, L500.4050, L506.1001, L501.9985, L500.4100, L501.9520, L506.0400 ####[facility] [address] [place], [address] Chloride [Moles/Vol] 103 mmol/L Normal 98-108 [facility] Comment on above: Order Comment: CBCD Performed By: #### L 100.0100, L501.81534, L500.4050, L506.1001, L501.9985, L500.4100, L501.9520, L506.0400 ####[facility] [address] [place], [place], [phone]) CO2 [Moles/Vol] 24.8 mmol/L Normal 21.0-32.0 [facility] Comment on above: Order Comment: CBCD Performed By: #### L 100.0100, L501.68609, L500.4050, L506.1001, L501.9985, L500.4100, L501.9520, L506.0400 ####[facility] [address] [place], [place], [phone]) Creatinine [Mass/Vol] 0.88 mg/dL Normal 0.70-1.20 [facility] Comment on above: Order Comment: CBCD Performed By: #### L 100.0100, L501.24667, L500.4050, L506.1001, L501.9985, L500.4100, L501.9520, L506.0400 ####[facility] [address] [place], [place], [phone] GAP 13 Normal 5-15 [facility] Comment on above: Order Comment: CBCD Performed By: #### L 100.0100, L501.18762, L500.4050, L506.1001, L501.9985, L500.4100, L501.9520, L506.0400 ####[facility] [address] [place], [place], [phone] GFR/1.73 sq M.predicted among non-blacks MDRD (S/P/Bld) [Vol rate/Area] 73 mL/min/{1.73_m2} Normal >60 [facility] Comment on above: Order Comment: CBCD Result Comment: mL/m in/1.73m2 CKD-EPI Creatinine Equation (2020) Performed By: #### L 100.0100, L501.86546, L500.4050, L506.1001, L501.9985, L500.4100, L501.9520, L506.0400 ####[facility] [address] [place], [address] Globulin (S) [Mass/Vol] 3.0 g/dL Normal 2.2-4.2 [facility] Comment on above: Order Comment: CBCD Performed By: #### L 100.0100, L501.39711, L500.4050, L506.1001, L501.9985, L500.4100, L501.9520, L506.0400 ####[facility] [address] [place], [address] Glucose [Mass/Vol] 103 mg/dL High 70-99 [facility] Comment on above: Order Comment: CBCD Performed By: #### L 100.0100, L501.61791, L500.4050, L506.1001, L501.9985, L500.4100, L501.9520, L506.0400 ####[facility] [address] [place], [address] Potassium [Moles/Vol] 3.6 mmol/L Normal 3.3-5.1 [facility] Comment on above: Order Comment: CBCD Performed By: #### L 100.0100, L501.66681, L500.4050, L506.1001, L501.9985, L500.4100, L501.9520, L506.0400 ####[facility] [address] [place], [address] Sodium [Moles/Vol] 141 mmol/L Normal 133-145 [facility] Comment on above: Order Comment: CBCD Performed By: #### L 100.0100, L501.36771, L500.4050, L506.1001, L501.9985, L500.4100, L501.9520, L506.0400 ####[facility] [address] [place], [place], [address] T PROT 7.2 g/dL Normal 5.9-8.4 [facility] Comment on above: Order Comment: CBCD Performed By: #### L 100.0100, L501.45073, L500.4050, L506.1001, L501.9985, L500.4100, L501.9520, L506.0400 ####[facility] [address] [place], [address] Urea nitrogen [Mass/Vol] 18 mg/dL Normal 4-19 [facility] Comment on above: Order Comment: CBCD Performed By: #### L 100.0100, L501.05797, L500.4050, L506.1001, L501.9985, L500.4100, L501.9520, L506.0400 ####[facility] [address] [facility] [address], [address] Eosinophil percentageOrdered By: Margarita Meza on 12-21-2024 Eosinophils/100 WBC (Bld) 3.7 % 0-5 [facility] Erythrocyte distribution wid th (RBC) [Ratio]Ordered By: Margarita Ammonys on 12-21-2024 Erythrocyte distribution width (RBC) [Entitic vol] 44.3 fL High 35.1-43.9 [facility] Erythrocyte distribution wid th ratioOrdered By: Margarita Malys on 12-21-2024 Erythrocyte distribution width (RBC) [Ratio] 13.1 % 11.6-14.6 [facility] Erythrocyte distribution wid th standard deviationOrdered By: Margarita Ammonys on 12-21-2024 Erythrocyte distribution width (RBC) [Ratio] 44.3 fl High 35.1-43.9 [facility] Free T3on 12-21-2024 Free T3 [Mass/Vol] 3.3 pg/mL Normal 2.18-3.98 [facility] Comment on above: Order Comment: NCBCD Performed By: #### L 100.0100, L501.20818, L500.4050, L506.1001, L501.9985, L500.4100, L501.9520, L506.0400 ####[facility] [address] [place], [address] Free M1Qmoitsk By: Margarita campos on 12-21-2024 Free T3 [Mass/Vol] 3.3 pg/mL 2.18-3.98 [facility] Free Triiodothyronine (T3) pg/dL 3.3 pg/mL 2.18-3.98 [facility] GFR/1.73 sq M.predicted leora g non-blacks MDRD (S/P/Bld) [Vol rate/Area]Ordered By: Margarita Meza on 12-21-2024 Estimated GFR (MDRD) Non-Af Amer 73 >60 [facility] Comment on above: mL/min/1.73m2 CKD-EP I Creatinine Equation (2020) Glomerular filtration rate ( GFR) estimation/1.73 sq m using serum, plasma, or whole bOrdered By: Margarita Meza on 12-21-2024 GFR/1.73 sq M.predicted among non-blacks MDRD (S/P/Bld) [Vol rate/Area] 73 mL/min/{1.73_m2} >60 [facility] Comment on above: mL/min/1.73m2 CKD-EP I Creatinine Equation (2020) Hematocrit Auto (Bld) [Volum e fraction]Ordered By: Margarita Meza on 12-21-2024 Hematocrit (Bld) [Volume fraction] 39.5 % 37-47 [facility] Hemoglobin A1con 12-21-2024 HbA1c (Bld) [Mass fraction] 5.7 % Normal <=5.6 [facility] Comment on above: Result Comment: Norm al < 5.7 % Prediabetic 5.7 - 6.4 % Diabetic >or= 6.5 % Please note range changes. Performed By: #### L 100.0100, L501.52369, L500.4050, L506.1001, L501.9985, L500.4100, L501.9520, L506.0400 ####[facility] [address] [place], [address] Hemoglobin A1c percentageOrd ered By: Margaritawalt Meza on 12-21-2024 HbA1c (Bld) [Mass fraction] 5.7 % <5.7 [facility] Comment on above: Normal < 5.7 % Predi abetic 5.7 - 6.4 % Diabetic >or= 6.5 % Please note range changes. Hemoglobin measurementOrdere d By: Margarita Meza on 12-21-2024 Hemoglobin (Bld) [Mass/Vol] 13.3 g/dL 12.0-15.0 [facility] Immature granulocytes/100 WB C Auto (Bld)Ordered By: Margarita Meza on 12-21-2024 Immature granulocytes/100 WBC (Bld) 0.300 % 0.0-0.9 [facility] Comment on above: IG% - Immature Granu locytes (promyelocytes, myelocytes and metamyelocytes) > 1% indicates that a LEFT SHIFT is Present. LDL calc ser/plasOrdered By: Margarita Meza on 12-21-2024 Cholesterol in LDL [Mass/Vol] 105 mg/dL [facility] Comment on above: Kcnhibyxgi=443-971 m g/dL & Higher Kgpd=944 mg/dL or greater LDL Cholesterol, Calculated 105 mg/dL [facility] Comment on above: Hvqdbfdpvs=046-820 m g/dL & Higher Obqc=965 mg/dL or greater Laboratory - Chemistry and C hemistry - challengeOrdered By: Margarita Meza on 12-21-2024 AST [Catalytic activity/Vol] 24 U/L <32 [facility] Lipid Profileon 12-21-2024 CHOL:HDL 2.93 Normal [facility] Comment on above: Performed By: #### L 100.0100, L501.61085, L500.4050, L506.1001, L501.9985, L500.4100, L501.9520, L506.0400 ####[facility] [address] [place], [address] Cholesterol [Mass/Vol] 182 mg/dL Normal <=[address] [facility] Comment on above: Result Comment: Chol esterol level, Desirable <200 mg/dL Borderline high cholesterol 200-239 mg/dL High cholesterol >=240 mg/dL Recommendations of the NCEP Adult Treatment Panel for the following risk-cutoff thresholds for the [place] population. Performed By: #### L 100.0100, L501.80684, L500.4050, L506.1001, L501.9985, L500.4100, L501.9520, L506.0400 ####[facility] [address] [place], [address] Cholesterol in HDL [Mass/Vol] 62 mg/dL Normal [facility] Comment on above: Result Comment: Laverne onal Cholesterol Education Program (NCEP) guidelines: <40 mg/dL: Low HDL-cholesterol (major risk factor for CHD) >= 60 mg/dL: High HDL-cholesterol (negative risk factor for CHD) HDL-cholesterol is affected by a number of factors, e.g. smoking, exercise, hormones, sex and age. Performed By: #### L 100.0100, L501.18039, L500.4050, L506.1001, L501.9985, L500.4100, L501.9520, L506.0400 ####[facility] [address] [place], [address] Cholesterol in LDL [Mass/Vol] 105 mg/dL Normal [facility] Comment on above: Result Comment: Bord gualin=891-243 mg/dL Higher Wayi=851 mg/dL or greater Performed By: #### L 100.0100, L501.63346, L500.4050, L506.1001, L501.9985, L500.4100, L501.9520, L506.0400 ####[facility] [address] [place], [address] Cholesterol in VLDL [Mass/Vol] 15 mg/dL Normal 5-40 [facility] Comment on above: Performed By: #### L 100.0100, L501.20931, L500.4050, L506.1001, L501.9985, L500.4100, L501.9520, L506.0400 ####[facility] [address] [place], [address] Triglyceride [Mass/Vol] 75 mg/dL Normal [facility] Comment on above: Result Comment: The drugs N-Acetylcysteine and Metamizole may falsely depress this assay. Normal range: <150 mg/dL Borderline High: 150-199 mg/dL High: 200-499 mg/dL Very High: >500 mg/dL Performed By: #### L 100.0100, L501.30712, L500.4050, L506.1001, L501.9985, L500.4100, L501.9520, L506.0400 ####[facility] [address] [place], [place], [address] Lymphocytes Auto (Unsp spec) [#/Vol]Ordered By: Margarita Meza on 12-21-2024 Lymphocytes (Bld) [#/Vol] 2.48 10*3/uL 0.83-4.51 [facility] Lymphocytes/100 WBC Auto (Un sp spec)Ordered By: Margarita Meza on 12-21-2024 Lymphocytes/100 WBC (Bld) 42.2 % High 19-41 [facility] MCV (mean corpuscular volume ) determinationOrdered By: Margarita Meza on 12-21-2024 MCV (RBC) [Entitic vol] 91.9 fL 81-99 [facility] Mean corpuscular hemoglobin (MCH) determinationOrdered By: Margarita Meza on 12-21-2024 MCH (RBC) [Entitic mass] 30.9 pg 27.0-32.0 [facility] Mean corpuscular hemoglobin concentration (MCHC) determinationOrdered By: Margarita Meza on 12-21-2024 MCHC (RBC) [Mass/Vol] 33.7 g/dL 32-36 [facility] Mean platelet volume determi nationOrdered By: Margarita Meza on 12-21-2024 Platelet mean volume (Bld) [Entitic vol] 11.0 fL 6.2-12.0 [facility] Monocyte percentageOrdered B y: Margarita Meza on 12-21-2024 Monocytes/100 WBC (Bld) 4.6 % 0-10 [facility] Neutrophil percentageOrdered By: Margarita Meza on 12-21-2024 Neutrophils/100 WBC (Bld) 48.5 % 47-70 [facility] Nucleated red blood cell per centageOrdered By: Margarita Meza on 12-21-2024 Nucleated RBC/100 WBC (Bld) [Ratio] 0 % 0-5 [facility] Pelvic w/ Transvaginalon Pelvic w/ Transvaginal [facility] Imaging Services [address] [place], [place] [address] Pelvic w/ Transvaginal MR#: [id number] Acct: [id number] Name: JOHANNA DOVE Rep #: [id number] : 1960 F 64 From: Toby sorto MD PCP: Dr. Margarita Meza, DO Status: REG CLI Study: Pelvic w/ Transvaginal Date of Exam: 12/21/24 Exam# [id number] Ordering Dr: Danielle Collins PLUMBING FOREMAN PLUMBING FOREMAN -C PROCEDURE: PELVIC W/ TRANSVAGINAL REASON FOR [...] Heterogeneous appearance of the myometrium. Reading Location: [place] [address] CC: PERCY Collins; Dr. Margarita Meza, Back Roll Lathe Operator: Signed Normal [facility] Platelet countOrdered By: Coral Meza on 12-21-2024 Platelets (Bld) [#/Vol] 277 10*3/uL 150-450 [facility] Potassium (Unsp spec) [Mass/ Vol]Ordered By: Margarita Meza on 12-21-2024 Potassium [Moles/Vol] 3.6 mmol/L 3.3-5.1 [facility] Potassium measurement (mass/ volume)Ordered By: Margarita Meza on 12-21-2024 Potassium (Unsp spec) [Mass/Vol] 3.6 mmol/L 3.3-5.1 [facility] RBC Auto (Bld) [#/Vol]Ordere d By: Margarita Meza on 12-21-2024 RBC (Bld) [#/Vol] 4.30 10*6/uL 4.2-5.4 [facility] Screening total cholesterol/ high density lipoprotein (HDL) cholesterol ratioOrdered By: Margarita Meza on 12-21-2024 Cholesterol.total/Pao sterol in HDL [Mass ratio] 2.93 {ratio} [facility] Serum creatinine measurement (mass/volume)Ordered By: Margarita Meza on 12-21-2024 Creatinine [Mass/Vol] 0.88 mg/dL 0.70-1.20 [facility] Serum globulin measurementOr dered By: Margarita Meza on 12-21-2024 Globulin (S) [Mass/Vol] 3.0 g/dL 2.2-4.2 [facility] Serum glucose measurement (m ass/volume)Ordered By: Margarita Meza on 12-21-2024 Glucose [Mass/Vol] 103 mg/dL High 70-99 [facility] Serum or plasma alanine lisa otransferase (ALT) measurementOrdered By: Margarita Meza on 12-21-2024 ALT [Catalytic activity/Vol] 25 U/L <35 [facility] Serum or plasma albumin michele urement (mass/volume)Ordered By: Margarita Meza on 12-21-2024 Albumin [Mass/Vol] 4.2 g/dL 3.4-4.8 [facility] Serum or plasma albumin/glob ulin mass ratioOrdered By: Margarita Meza on 12-21-2024 Albumin/Globulin [Mass ratio] 1.4 {ratio} 0.9-2.4 [facility] Serum or plasma alkaline capo sphatase measurementOrdered By: Margarita Meza on 12-21-2024 ALP [Catalytic activity/Vol] 77 U/L 35-104 [facility] Serum or plasma calcium michele urement (mass/volume)Ordered By: Margarita Meza on 12-21-2024 Calcium [Mass/Vol] 9.4 mg/dL 7.6-11.0 [facility] Serum or plasma cholesterol in HDL measurement (mass/volume)Ordered By: Margarita Meza on 12-21-2024 Cholesterol in HDL [Mass/Vol] 62 mg/dL >40 [facility] Comment on above: National Cholesterol Education Program (NCEP) guidelines:<40 mg/dL: Low HDL-cholesterol (major risk factor for CHD)>= 60 mg/dL: High HDL-cholesterol (negative risk factor for CHD)HDL-cholesterol is affected by a number of factors, e.g. smoking, exercise, hormones, sex and age. Serum or plasma cholesterol measurement (mass/volume)Ordered By: Margarita Meza on 12-21-2024 Cholesterol [Mass/Vol] 182 mg/dL <[address] [facility] Comment on above: Cholesterol level, D esirable <200 mg/dLBorderline high cholesterol 200-239 mg/dLHigh cholesterol >=240 mg/dLRecommendations of the NCEP Adult Treatment Panel for the following risk-cutoff thresholds for the [place] population. Serum or plasma urea nitroge n measurement (mass/volume)Ordered By: Margarita Meza on 12-21-2024 Urea nitrogen [Mass/Vol] 18 mg/dL 4-19 [facility] Sodium levelOrdered By: Margarita Meza on 12-21-2024 Sodium [Moles/Vol] 141 mmol/L 133-145 [facility] T4 Free Directon 12-21-2024 T4 FREE DIRECT 1.10 ng/dL Normal 0.76-1.46 [facility] Comment on above: Order Comment: NCBCD Performed By: #### L 100.0100, L501.37374, L500.4050, L506.1001, L501.9985, L500.4100, L501.9520, L506.0400 ####[facility] [address] [place], [place], [id number] T4 freeOrdered By: Margarita Dean s on 12-21-2024 Free T4 [Mass/Vol] 1.10 ng/dL 0.76-1.46 [facility] TSH DL <= 0.005 mIU/L QnOrde red By: Margarita Meza on 12-21-2024 Thyroid Stimulating Hormone (TSH) 2.260 uIU/mL 0.300-4.200 [facility] TSH Qn 2.260 uIU/mL 0.300-4.200 [facility] Thyroid Stim Hormone (TSH)on 12-21-2024 TSH 2.260 uIU/mL Normal 0.300-4.200 [facility] Comment on above: Performed By: #### L 100.0100, L501.95889, L500.4050, L506.1001, L501.9985, L500.4100, L501.9520, L506.0400 ####[facility] [address] [place], [address] Total proteinOrdered By: Katty Meza on 12-21-2024 Protein [Mass/Vol] 7.2 g/dL 5.9-8.4 [facility] Triglycerides measurementOrd ered By: Margarita Meza on 12-21-2024 Triglyceride [Mass/Vol] 75 mg/dL <199 [facility] Comment on above: The drugs N-Acetylcy steine and Metamizole may falsely depress this assay. Normal range: <150 mg/dLBorderline High: 150-199 mg/dLHigh: 200-499 mg/dLVery High: >500 mg/dL Vitamin D, 25-hydroxyOrdered By: Margarita Meza on 12-21-2024 Vitamin D 25-Hydroxy 54.7 ng/mL 30-100 [facility] Comment on above: Vitamin D StatusDefi ciency: <20 ng/mL (50nmol/L)Insufficiency: 20-30 ng/mL (50-75 nmol/L)Sufficiency: 30-100 ng/mL (75-250 nmol/L)Toxicity: >100 ng/mL (>250 nmol/L) Vitamin D,25 Hydroxyon 12-21 Vitamin D 25-OH 54.7 ng/mL Normal 30-100 [facility] Comment on above: Result Comment: Emelyn min D Status Deficiency: <20 ng/mL (50nmol/L) Insufficiency: 20-30 ng/mL (50-75 nmol/L) Sufficiency: 30-100 ng/mL (75-250 nmol/L) Toxicity: >100 ng/mL (>250 nmol/L) Performed By: #### L 100.0100, L501.22467, L500.4050, L506.1001, L501.9985, L500.4100, L501.9520, L506.0400 ####[facility] [address] [place], [address] White blood cell (WBC) count Ordered By: Margarita Meza on 12-21-2024 WBC (Bld) [#/Vol] 5.9 10*3/uL 4.4-11.0 [facility] Surgical pathology reportOrd ered By: Ania Penaloza on 12-15-2024 Surgical pathology study [facility] X Ray Developer Office Visit Reporton 12-08-2024 X Ray Developer Office Visit Report [facility] [address], [address] [place] [address] OFFICE VISIT Date of Service: 12/08/24 MR#: [id number] Acct: [id number] Name: JOHANNA DOVE Rep #: [id number] : 1960 Provider: PERCY acevedo Age/Sex: 64/F Location: [place] Status: Signed Intake Vital Signs 03/23/24 13:22 12/08/24 15:01 Height 5 ft 8 in 5 ft 8 in Weight: 222 lb 216 lb BMI 33.7 32.8 BP 111/62 136/84 H Blood Pressure Location Lt brachial Position Sitting Respiration 16 Pulse 74 Pulse Source NIBP Intake Visit Reasons: PMB Chief Complaint: PMB_ EMB Medical Office Receptionist Required: No Is patient in pain?: No [...] PO HS PRN 07/24/22 12/08/24 H istory eaoacoq-ugnjomdsx-vtvjk in D2 500 3 tab PO DAILY [...] spots of (more content not included)... Normal [facility] Surgery Specimen Level Jennifer 12-08-2024 Surgery Specimen Level IV Patient Age/Sex Location Account Attending Physician JOHANNA DOVE 64/F LABSPEC [id number] PERCY King Specimen: [id number] Received: 12/09/24 Status: NATHAN Flores Num: [id number] Spec Type: NEGAR BX/C Jose David Dr: [...] submitted entirely for cellblock preparation in A1. [facility] 12-09-2024 CPT:97110 Patient Age/Sex Location Account Attending Physician [facility]OVE 64[facility] [id number] PERCY King Signed (signature on file) Dr. Ania Penaloza MD 12/15/24 0924 Normal [facility] Comment on above: Performed By: #### P SUIV #### [facility] Laboratory [address], [address] Cardiology Visit Reporton Cardiology Visit Report [facility] [address] [place] [address] OFFICE VISIT Date of Service: 03/23/24 MR#: [id number] Acct: [id number] Name: JOHANNA DOVE Rep #: [id number] : 1960 Provider: PERCY solorzano Age/Sex: 63/F [facility] Status: Signed [facility] HPI History of Present Illness Details: [...] NIBP Intake Visit Reasons: 6 M FU Medical Office Receptionist Required: No Accompanied by: None Is patient [...] mg PO HS PRN 07/24/22 03/23/24 History zhwofsu-otolconcu-mqhnw in D2 500 3 tab PO DAILY [...] the past year?: No PFSH Medical History Wears glasses Depression Arthritis [...] (Updated 03/23/24 @ 13:52 by Osorio Gregory PLUMBING FOREMAN, PLUMBING FOREMAN-C) Father Heart disease Sister Myocardial infarction Mother [...] carbonated be (more content not included)... Normal [facility] Foot min 3 Viewson 4 Foot min 3 Views [facility] [address] [place] [address] Foot min 3 Views MR#: [id number] Acct: [id number] Name: JOHANNA DOVE Rep #: [id number] : 1960 F 63 From: Shane Niño MD PCP: Dr. Margarita Meza, DO Status: DEP AMB Study: Foot min 3 Views Date of Exam: 03/23/24 Exam# [id number] Ordering Dr: Rod Garcia DPAnjali [id number] STUDY: X-RAY - RIGHT FOOT CLINICAL: Female, [...] CC: CAREN Garcia; Dr. Margarita Meza DO Back Roll Lathe Operator: Signed Normal [facility] Foot min 3 Views [facility] [address] [place] [address] Foot min 3 Views MR#: [id number] Acct: [id number] Name: JOHANNA DOVE Rep #: [id number] : 1960 F 63 From: Shane Niño MD PCP: Dr. Margarita Meza DO Status: DEP AMB Study: Foot min 3 Views Date of Exam: 03/23/24 Exam# [id number] Ordering Dr: Rod Garcia DPAnjali [id number] STUDY: X-RAY - LEFT FOOT CLINICAL: Female, [...] CC: DPAnjali Garcia; Dr. Margarita Meza DO Back Roll Lathe Operator: Signed Normal [facility] Vitamin D,25 Hydroxyon 03-08 Vitamin D 25-OH 63.5 ng/mL Normal [facility] Comment on above: Result Comment: Emelyn min D 25(OH) Status Range Deficiency <20 ng/mL (50nmol/L) Insufficiency 20 - 30 ng/mL (50 - 75 nmol/L) Sufficiency 30 - 100 ng/mL (75 - 250 nmol/L) Toxicity >100 ng/mL (>250 nmol/L) Performed By: #### L 501.9520, L500.4100, L501.41253, L100.0100, L506.1000, L500.4050, L501.9985, L506.0400 ####[facility] [address], [address] CBC W/Diff, Automatedon - Absolute Lymph 2.08 X10 3/uL Normal 0.83-4.51 [facility] Comment on above: Performed By: #### L 501.9520, L500.4100, L501.81857, L100.0100, L506.1000, L500.4050, L501.9985, L506.0400 #### [facility] Laboratory [address], [address] Absolute Neut 1.8 X10 3/uL Low 2.0-7.7 [facility] Comment on above: Performed By: #### L 501.9520, L500.4100, L501.33828, L100.0100, L506.1000, L500.4050, L501.9985, L506.0400 #### [facility] Laboratory [address] [place], [address] Basophils/100 WBC (Bld) 0.9 % Normal 0-1 [facility] Comment on above: Performed By: #### L 501.9520, L500.4100, L501.19911, L100.0100, L506.1000, L500.4050, L501.9985, L506.0400 #### [facility] Laboratory [address] [place], [address] Eosinophils/100 WBC (Bld) 5.0 % Normal 0-5 [facility] Comment on above: Performed By: #### L 501.9520, L500.4100, L501.75619, L100.0100, L506.1000, L500.4050, L501.9985, L506.0400 #### [facility] Laboratory [address] [place], [address] Erythrocyte distribution width (RBC) [Ratio] 13.2 % Normal 11.6-14.6 [facility] Comment on above: Performed By: #### L 501.9520, L500.4100, L501.13020, L100.0100, L506.1000, L500.4050, L501.9985, L506.0400 #### [facility] Laboratory [address] [place], [address] Hematocrit (Bld) [Volume fraction] 41.2 % Normal 37-47 [facility] Comment on above: Performed By: #### L 501.9520, L500.4100, L501.44466, L100.0100, L506.1000, L500.4050, L501.9985, L506.0400 #### [facility] Laboratory [address] [place], [address] Hemoglobin (Bld) [Mass/Vol] 13.4 g/dL Normal 12.0-15.0 [facility] Comment on above: Performed By: #### L 501.9520, L500.4100, L501.77206, L100.0100, L506.1000, L500.4050, L501.9985, L506.0400 #### [facility] Laboratory [address] [place], [address] IG% 0.000 Normal 0.0-0.9 [facility] Comment on above: Result Comment: IG% - Immature Granulocytes (promyelocytes, myelocytes and metamyelocytes) > 1% indicates that a LEFT SHIFT is Present. Performed By: #### L 501.9520, L500.4100, L501.76455, L100.0100, L506.1000, L500.4050, L501.9985, L506.0400 #### [facility] Laboratory [address] [place], [address] Lymphocytes/100 WBC (Bld) 47.1 % High 19-41 [facility] Comment on above: Performed By: #### L 501.9520, L500.4100, L501.62725, L100.0100, L506.1000, L500.4050, L501.9985, L506.0400 #### [facility] Laboratory [address] [place], [address] MCH (RBC) [Entitic mass] 30.7 pg Normal 27.0-32.0 [facility] Comment on above: Performed By: #### L 501.9520, L500.4100, L501.12811, L100.0100, L506.1000, L500.4050, L501.9985, L506.0400 #### [facility] Laboratory [address] [place], [address] MCHC (RBC) [Mass/Vol] 32.5 g/dL Normal 32-36 [facility] Comment on above: Performed By: #### L 501.9520, L500.4100, L501.78566, L100.0100, L506.1000, L500.4050, L501.9985, L506.0400 #### [facility] Laboratory [address] [place], [address] MCV (RBC) [Entitic vol] 94.5 fL Normal 81-99 [facility] Comment on above: Performed By: #### L 501.9520, L500.4100, L501.16006, L100.0100, L506.1000, L500.4050, L501.9985, L506.0400 #### [facility] Laboratory [address] [place], [address] Monocytes/100 WBC (Bld) 6.3 % Normal 0-10 [facility] Comment on above: Performed By: #### L 501.9520, L500.4100, L501.52113, L100.0100, L506.1000, L500.4050, L501.9985, L506.0400 #### [facility] Laboratory [address] [place], [address] Neutrophils/100 WBC (Bld) 40.7 % Low 47-70 [facility] Comment on above: Performed By: #### L 501.9520, L500.4100, L501.24805, L100.0100, L506.1000, L500.4050, L501.9985, L506.0400 #### [facility] Laboratory [address] [place], [address] Nucleated RBC (Bld) [#/Vol] 0 10*3/uL Normal 0-5 [facility] Comment on above: Performed By: #### L 501.9520, L500.4100, L501.20225, L100.0100, L506.1000, L500.4050, L501.9985, L506.0400 #### [facility] Laboratory [address] [place], [address] Platelet mean volume (Bld) [Entitic vol] 10.5 fL Normal 6.2-12.0 [facility] Comment on above: Performed By: #### L 501.9520, L500.4100, L501.32578, L100.0100, L506.1000, L500.4050, L501.9985, L506.0400 #### [facility] Laboratory [address] [place], [address] Platelets (Bld) [#/Vol] 256 10*3/uL Normal 150-450 [facility] Comment on above: Performed By: #### L 501.9520, L500.4100, L501.16077, L100.0100, L506.1000, L500.4050, L501.9985, L506.0400 #### [facility] Laboratory [address] [place], [address] RBC (Bld) [#/Vol] 4.36 10*6/uL Normal 4.2-5.4 [facility] Comment on above: Performed By: #### L 501.9520, L500.4100, L501.93563, L100.0100, L506.1000, L500.4050, L501.9985, L506.0400 #### [facility] Laboratory [address] [place], [address] RDW SD 45.9 fl High 35.1-43.9 [facility] Comment on above: Performed By: #### L 501.9520, L500.4100, L501.18718, L100.0100, L506.1000, L500.4050, L501.9985, L506.0400 #### [facility] Laboratory [address] [place], [address] WBC (Bld) [#/Vol] 4.4 10*3/uL Normal 4.4-11.0 [facility] Comment on above: Performed By: #### L 501.9520, L500.4100, L501.73155, L100.0100, L506.1000, L500.4050, L501.9985, L506.0400 #### [facility] Laboratory [address] [place], [address] Comprehensive Metabolic Prof [facility] 03-06-2024 Albumin [Mass/Vol] 3.7 g/dL Normal 3.2-5.0 [facility] Comment on above: Performed By: #### L 501.9520, L500.4100, L501.68393, L100.0100, L506.1000, L500.4050, L501.9985, L506.0400 #### [facility] Laboratory [address] [place], [address] Albumin/Globulin [Mass ratio] 1.0 {ratio} Normal 0.9-2.4 [facility] Comment on above: Performed By: #### L 501.9520, L500.4100, L501.32816, L100.0100, L506.1000, L500.4050, L501.9985, L506.0400 #### [facility] Laboratory [address] [place], [address] ALK P 85 U/L Normal 45-117 [facility] Comment on above: Performed By: #### L 501.9520, L500.4100, L501.26657, L100.0100, L506.1000, L500.4050, L501.9985, L506.0400 #### [facility] [address] [place], [address] ALT [Catalytic activity/Vol] 52 U/L Normal 13-56 [facility] Comment on above: Performed By: #### L 501.9520, L500.4100, L501.61586, L100.0100, L506.1000, L500.4050, L501.9985, L506.0400 #### [facility] [address] [place], [address] AST [Catalytic activity/Vol] 34 U/L Normal 15-37 [facility] Comment on above: Performed By: #### L 501.9520, L500.4100, L501.26420, L100.0100, L506.1000, L500.4050, L501.9985, L506.0400 #### [facility] [address] [place], [address] Bilirubin [Mass/Vol] 0.60 mg/dL Normal 0.20-1.00 [facility] Comment on above: Result Comment: For patients on eltrombopag therapy, use of Dimension [place] TBIL is not recommended. Performed By: #### L 501.9520, L500.4100, L501.06709, L100.0100, L506.1000, L500.4050, L501.9985, L506.0400 #### [facility] [address] [place], [address] BUN/CRE 17.5 RATIO Normal 10-20 [facility] Comment on above: Performed By: #### L 501.9520, L500.4100, L501.21069, L100.0100, L506.1000, L500.4050, L501.9985, L506.0400 #### [facility] [address] [place], [address] CA,Total 9.2 mg/dL Normal 8.5-10.1 [facility] Comment on above: Performed By: #### L 501.9520, L500.4100, L501.03076, L100.0100, L506.1000, L500.4050, L501.9985, L506.0400 #### [facility] [address] [place], [address] Chloride [Moles/Vol] 105 mmol/L Normal 98-107 [facility] Comment on above: Performed By: #### L [id number], L500.4100, L501.10218, L100.0100, L506.1000, L500.4050, L501.9985, L506.0400 #### [facility] [address] [place], [address] CO2 [Moles/Vol] 28.0 mmol/L Normal 21.0-32.0 [facility] Comment on above: Performed By: #### L [id number], L500.4100, L501.66382, L100.0100, L506.1000, L500.4050, L501.9985, L506.0400 #### [facility] [address] [place], [address] Creatinine [Mass/Vol] 0.97 mg/dL Normal 0.55-1.02 [facility] Comment on above: Result Comment: The validity of the calculated GFR GFRAA in patients over 70 years has not been determined. Clinical correlation is essential. Performed By: #### L [id number], L500.4100, L501.76860, L100.0100, L506.1000, L500.4050, L501.9985, L506.0400 #### [facility] [address] [place], [address] EST GFR - AA 74 mL/min Normal >60 [facility] Comment on above: Result Comment: Afri can [place] GFR Calc Performed By: #### L [id number], L500.4100, L501.71381, L100.0100, L506.1000, L500.4050, L501.9985, L506.0400 #### [facility] [address] [place], [address] GAP 5 Normal 5-15 [facility] Comment on above: Performed By: #### L [id number], L500.4100, L501.22097, L100.0100, L506.1000, L500.4050, L501.9985, L506.0400 #### [facility] [address] [place], [address] GFR/1.73 sq M.predicted among non-blacks MDRD (S/P/Bld) [Vol rate/Area] 61 mL/min/{1.73_m2} Normal >60 [facility] Comment on above: Result Comment: Non- GFR Calc Performed By: #### L [id number], L500.4100, L501.60119, L100.0100, L506.1000, L500.4050, L501.9985, L506.0400 #### [facility] [address] [place], [address] Globulin (S) [Mass/Vol] 3.8 g/dL Normal 2.2-4.2 [facility] Comment on above: Performed By: #### L [id number], L500.4100, L501.04707, L100.0100, L506.1000, L500.4050, L501.9985, L506.0400 #### [facility] [address] [place], [address] Glucose [Mass/Vol] 98 mg/dL Normal 74-106 [facility] Comment on above: Performed By: #### L [id number], L500.4100, L501.49006, L100.0100, L506.1000, L500.4050, L501.9985, L506.0400 #### [facility] [address] [place], [address] Potassium [Moles/Vol] 3.9 mmol/L Normal 3.5-5.1 [facility] Comment on above: Performed By: #### L [id number], L500.4100, L501.45951, L100.0100, L506.1000, L500.4050, L501.9985, L506.0400 #### [facility] [address] [place], [address] Sodium [Moles/Vol] 138 mmol/L Normal 136-145 [facility] Comment on above: Performed By: #### L [id number], L500.4100, L501.98128, L100.0100, L506.1000, L500.4050, L501.9985, L506.0400 #### [facility] [address] [place], [address] T PROT 7.5 g/dL Normal 6.4-8.2 [facility] Comment on above: Performed By: #### L [id number], L500.4100, L501.08702, L100.0100, L506.1000, L500.4050, L501.9985, L506.0400 #### [facility] [address] [place], [address] Urea nitrogen [Mass/Vol] 17 mg/dL Normal 7-18 [facility] Comment on above: Performed By: #### L [id number], L500.4100, L501.86011, L100.0100, L506.1000, L500.4050, L501.9985, L506.0400 #### [facility] [address] [place], [address] Free T3on 03-06-2024 Free T3 [Mass/Vol] 2.3 pg/mL Normal 2.18-3.98 [facility] Comment on above: Performed By: #### L [id number], L500.4100, L501.98585, L100.0100, L506.1000, L500.4050, L501.9985, L506.0400 #### [facility] [address] [place], [place], [phone]) Hemoglobin A1con 03-06-2024 HbA1c (Bld) [Mass fraction] 5.7 % High 3.8-5.6 [facility] Comment on above: Result Comment: Norm al < 5.7 % Prediabetic 5.7 - 6.4 % Diabetic >or= 6.5 % Please note range changes. Performed By: #### L [id number], L500.4100, L501.18752, L100.0100, L506.1000, L500.4050, L501.9985, L506.0400 #### [facility] [address] [place], [address] Lipid Profileon 03-06-2024 Cholesterol [Mass/Vol] 157 mg/dL Normal [address] [facility] Comment on above: Result Comment: <200 mg/dL Desirable 200-240 mg/dL Borderline >240 mg/dL High Risk Performed By: #### L [id number], L500.4100, L501.59115, L100.0100, L506.1000, L500.4050, L501.9985, L506.0400 #### [facility] [address] [place], [place], [id number] Cholesterol in HDL [Mass/Vol] 55 mg/dL Normal [facility] Comment on above: Result Comment: The drugs N-Acetylcysteine and Metamizole may falsely depress this assay. Reference Range HDL <40 mg/dL Low HDL Cholesterol HDL >or= 60 mg/dL High HDL Cholesterol Performed By: #### L [id number], L500.4100, L501.61821, L100.0100, L506.1000, L500.4050, L501.9985, L506.0400 #### [facility] [address] [place], [address] Cholesterol in LDL [Mass/Vol] 86 mg/dL Normal 0-130 [facility] Comment on above: Performed By: #### L [id number], L500.4100, L501.71767, L100.0100, L506.1000, L500.4050, L501.9985, L506.0400 #### [facility] [address] [place], [place], [phone] Cholesterol in VLDL [Mass/Vol] 16 mg/dL Normal 5-40 [facility] Comment on above: Performed By: #### L [id number], L500.4100, L501.11829, L100.0100, L506.1000, L500.4050, L501.9985, L506.0400 #### [facility] [address] [place], [address] Triglyceride [Mass/Vol] 79 mg/dL Normal [facility] Comment on above: Result Comment: The drugs N-Acetylcysteine and Metamizole may falsely depress this assay. Serum Triglycerides Reference Interval Normal <150 mg/dL Borderline high 150 - 199 mg/dL High 200 - 499 mg/dL Very High > or = 500 mg/dL Performed By: #### L [id number], L500.4100, L501.04252, L100.0100, L506.1000, L500.4050, L501.9985, L506.0400 #### [facility] [address] [place], [address] T4 Free Directon 03-06-2024 T4 FREE DIRECT 1.00 ng/dL Normal 0.76-1.46 [facility] Comment on above: Performed By: #### L [id number], L500.4100, L501.60478, L100.0100, L506.1000, L500.4050, L501.9985, L506.0400 #### [facility] [address] [place], [place], [address] Thyroid Stim Hormone (TSH)on 03-06-2024 TSH 1.12 uIU/mL Normal 0.358-3.74 [facility] Comment on above: Performed By: #### L [id number], L500.4100, L501.87688, L100.0100, L506.1000, L500.4050, L501.9985, L506.0400 #### [facility] [address] [place], [place], [id number] Basophil percentageOrdered B y: Margarita Meza on 11-29-2023 Bilirubin [Mass/Vol] 0.40 mg/dL 0.20-1.00 [facility] Comment on above: For patients on eltr ombopag therapy, use of Dimension [place] TBIL is not recommended. Chloride [Moles/Vol] 109 mmol/L 98-107 [facility] Glucose [Mass/Vol] 122 mg/dL 74-106 [facility] Comment on above: Fasting Glucose resu lt from 100 to 125 mg/dL suggests IMPAIRED HOMEOSTASIS per A.D.A. criteria. Potassium [Moles/Vol] 4.2 mmol/L 3.5-5.1 [facility] Protein [Mass/Vol] 7.1 g/dL 6.4-8.2 [facility] Sodium [Moles/Vol] 141 mmol/L 136-145 [facility] - Chemistry and C hemistry - challengeOrdered By: Margarita Meza on 11-29-2023 Albumin/Globulin [Mass ratio] 1.0 {ratio} 0.9-2.4 [facility] ALP [Catalytic activity/Vol] 86 U/L 45-117 [facility] ALT [Catalytic activity/Vol] 77 U/L 13-56 [facility] CO2 [Moles/Vol] 27.0 mmol/L 21.0-32.0 [facility] Globulin (S) [Mass/Vol] 3.5 g/dL 2.2-4.2 [facility] Urea nitrogen/Creatinine [Mass ratio] 14.9 mg/mg 10-20 [facility] No Panel InformationOrdered By: Margarita Meza on 11-29-2023 Estimated GFR (MDRD) Amer 84 mL/min >60 [facility] Comment on above: GFR Calc Estimated GFR (MDRD) Non-Af Amer 69 mL/min >60 [facility] Comment on above: Non- GFR Calc Serum or plasma calcium michele urement (mass/volume)Ordered By: Margarita Meza on 11-29-2023 Calcium [Mass/Vol] 9.0 mg/dL 8.5-10.1 [facility] Serum or plasma creatinine m easurement (mass/volume)Ordered By: Margarita Meza on 11-29-2023 Creatinine [Mass/Vol] 0.88 mg/dL 0.55-1.02 [facility] Comment on above: The validity of the calculated GFR & GFRAA in patients over 70 years has not been determined. Clinical correlation is essential. Serum or plasma urea nitroge n measurement (mass/volume)Ordered By: Margarita Meza on 11-29-2023 Urea nitrogen [Mass/Vol] 13 mg/dL 7-18 [facility] Thin prep Papanicolaou smear with manual screeningOrdered By: Margariat Meza on 11-29-2023 Thin prep Papanicolaou smear with manual screening 3.6 g/dL 3.2-5.0 [facility] Thin prep Papanicolaou smear with manual screening 74 U/L 15-37 [facility] Thin prep Papanicolaou smear with manual screening 5 5-15 [facility] Whole blood hemoglobin A1c/t otal hemoglobin ratio (mass fraction)Ordered By: Margarita Meza on 11-29-2023 HbA1c (Bld) [Mass fraction] 6.5 % 3.8-5.6 [facility] Comment on above: Normal < 5.7 % Predi abetic 5.7 - 6.4 % Diabetic >or= 6.5 % Please note range changes. Absolute lymphocyte countOrd ered By: Margarita Meza on 10-06-2023 Lymphocytes Auto (Unsp spec) [#/Vol] 2.60 10*3/uL 0.83-4.51 [facility] Automated lymphocyte count a s percentage of total leukocytesOrdered By: Margarita Meza on 10-06-2023 Lymphocytes/100 WBC Auto (Unsp spec) 39.6 % 19-41 [facility] Basophil percentageOrdered B y: Margarita Meza on 10-06-2023 Basophils/100 WBC (Bld) 0.8 % 0-1 [facility] Bilirubin [Mass/Vol] 0.50 mg/dL 0.20-1.00 [facility] Comment on above: For patients on eltr ombopag therapy, use of Dimension [place] TBIL is not recommended. Chloride [Moles/Vol] 108 mmol/L 98-107 [facility] Cholesterol [Mass/Vol] 166 mg/dL <[address] [facility] Comment on above: <200 mg/dL Desirable 200-240 mg/dL Borderline >240 mg/dL High Risk Eosinophils/100 WBC (Bld) 4.4 % 0-5 [facility] Glucose [Mass/Vol] 121 mg/dL 74-106 [facility] Comment on above: Fasting Glucose resu lt from 100 to 125 mg/dL suggests IMPAIRED HOMEOSTASIS per A.D.A. criteria. Hemoglobin (Bld) [Mass/Vol] 13.2 g/dL 12.0-15.0 [facility] Monocytes/100 WBC (Bld) 6.6 % 0-10 [facility] Neutrophils (Bld) [#/Vol] 3.2 10*3/uL 2.0-7.7 [facility] Neutrophils/100 WBC (Bld) 48.3 % 47-70 [facility] Potassium [Moles/Vol] 3.6 mmol/L 3.5-5.1 [facility] Protein [Mass/Vol] 7.2 g/dL 6.4-8.2 [facility] Sodium [Moles/Vol] 140 mmol/L 136-145 [facility] Triglyceride [Mass/Vol] 128 mg/dL <199 [facility] Comment on above: The drugs N-Acetylcy steine and Metamizole may falsely depress this assay.Serum Triglycerides Reference Interval Normal <150 mg/dL Borderline high 150 - 199 mg/dL High 200 - 499 mg/dL Very High > or = 500 mg/dL WBC (Bld) [#/Vol] 6.6 10*3/uL 4.4-11.0 [facility] Determination of erythrocyte mean corpuscular volume (MCV)Ordered By: Margarita Meza on 10-06-2023 MCV (RBC) [Entitic vol] 91.3 fL 81-99 [facility] Erythrocyte distribution wid th ratioOrdered By: Margarita Meza on 10-06-2023 Erythrocyte distribution width (RBC) [Ratio] 13.2 % 11.6-14.6 [facility] Erythrocyte distribution wid th standard deviationOrdered By: Margarita Meza on 10-06-2023 Erythrocyte distribution width (RBC) [Entitic vol] 44.7 fL 35.1-43.9 [facility] Hematocrit Auto (Bld) [Volum e fraction]Ordered By: Margarita Meza on 10-06-2023 Hematocrit (Bld) [Volume fraction] 39.8 % 37-47 [facility] Immature granulocytes/100 WB C Auto (Bld)Ordered By: Margarita Meza on 10-06-2023 Immature granulocytes/100 WBC (Bld) 0.300 % 0.0-0.9 [facility] Comment on above: IG% - Immature Granu locytes (promyelocytes, myelocytes and metamyelocytes) > 1% indicates that a LEFT SHIFT is Present. Laboratory - Chemistry and C hemistry - challengeOrdered By: Margarita Meza on 10-06-2023 Albumin/Globulin [Mass ratio] 0.9 {ratio} 0.9-2.4 [facility] ALP [Catalytic activity/Vol] 83 U/L 45-117 [facility] ALT [Catalytic activity/Vol] 62 U/L 13-56 [facility] Cholesterol in HDL (Body fld) [Mass/Vol] 53 mg/dL >40 [facility] Comment on above: The drugs N-Acetylcy steine and Metamizole may falsely depress this assay. Reference Range HDL <40 mg/dL Low HDL Cholesterol HDL >or= 60 mg/dL High HDL Cholesterol Cholesterol in LDL (Body fld) [Moles/Vol] 87 mg/dL 0-130 [facility] Cholesterol in VLDL Calc [Moles/Vol] 26 mg/dL 5-40 [facility] CO2 [Moles/Vol] 27.0 mmol/L 21.0-32.0 [facility] Globulin (S) [Mass/Vol] 3.7 g/dL 2.2-4.2 [facility] Urea nitrogen/Creatinine [Mass ratio] 18.7 mg/mg 10-20 [facility] - Hematology and Cell countsOrdered By: Margarita Meza on 10-06-2023 MCH (RBC) [Entitic mass] 30.3 pg 27.0-32.0 [facility] MCHC (RBC) [Mass/Vol] 33.2 g/dL 32-36 [facility] Nucleated RBC/100 WBC (Bld) [Ratio] 0 % 0-5 [facility] Platelets (Bld) [#/Vol] 246 10*3/uL 150-450 [facility] No Panel InformationOrdered By: Margarita Meza on 10-06-2023 Estimated GFR (MDRD) Amer 80 mL/min >60 [facility] Comment on above: GFR Calc Estimated GFR (MDRD) Non-Af Amer 67 mL/min >60 [facility] Comment on above: Non- GFR Calc Free Triiodothyronine (T3) pg/dL 2.9 pg/mL 2.18-3.98 [facility] Vitamin D 25-Hydroxy 82.2 ng/mL [facility] Comment on above: Vitamin D 25(OH) Sta tus Range Deficiency <20 ng/mL (50nmol/L) Insufficiency 20 - 30 ng/mL (50 - 75 nmol/L) Sufficiency 30 - 100 ng/mL (75 - 250 nmol/L) Toxicity >100 ng/mL (>250 nmol/L) Platelet mean volume Demian-Ec ker (Bld) [Entitic vol]Ordered By: Margarita Meza on 10-06-2023 Platelet mean volume (Bld) [Entitic vol] 10.5 fL 6.2-12.0 [facility] RBC Auto (Bld) [#/Vol]Ordere d By: Margarita Meza on 10-06-2023 RBC (Bld) [#/Vol] 4.36 10*6/uL 4.2-5.4 [facility] Serum or plasma calcium michele urement (mass/volume)Ordered By: Margarita Meza on 10-06-2023 Calcium [Mass/Vol] 9.1 mg/dL 8.5-10.1 [facility] Serum or plasma creatinine m easurement (mass/volume)Ordered By: Margarita Meza on 10-06-2023 Creatinine [Mass/Vol] 0.91 mg/dL 0.55-1.02 [facility] Comment on above: The validity of the calculated GFR & GFRAA in patients over 70 years has not been determined. Clinical correlation is essential. Serum or plasma thyroid stim ulating hormone (TSH) measurement (units/volume)Ordered By: Margarita Meza on 10-06-2023 TSH Qn 2.46 uIU/mL 0.358-3.74 [facility] Serum or plasma urea nitroge n measurement (mass/volume)Ordered By: Margarita Meza on 10-06-2023 Urea nitrogen [Mass/Vol] 17 mg/dL 7-18 [facility] Thin prep Papanicolaou smear with manual screeningOrdered By: Margarita Meza on 10-06-2023 Thin prep Papanicolaou smear with manual screening 3.5 g/dL 3.2-5.0 [facility] Thin prep Papanicolaou smear with manual screening 47 U/L 15-37 [facility] Thin prep Papanicolaou smear with manual screening 5 5-15 [facility] Thin prep Papanicolaou smear with manual screening 1.00 ng/dL 0.76-1.46 [facility] Absolute lymphocyte countOrd ered By: Dr. Meza on 07-20-2022 Lymphocytes Auto (Unsp spec) [#/Vol] 2.82 10*3/uL 0.83-4.51 [facility] Basophil percentageOrdered B y: Dr. Meza on 07-20-2022 Basophils/100 WBC (Bld) 0.6 % 0-1 [facility] Bilirubin [Mass/Vol] 0.50 mg/dL 0.20-1.00 [facility] Comment on above: For patients on eltr ombopag therapy, use of Dimension [place] TBIL is not recommended. Chloride [Moles/Vol] 106 mmol/L 98-107 [facility] Cholesterol [Mass/Vol] 167 mg/dL <[address] [facility] Comment on above: <200 mg/dL Desirable 200-240 mg/dL Borderline >240 mg/dL High Risk Eosinophils/100 WBC (Bld) 4.9 % 0-5 [facility] Glucose [Mass/Vol] 97 mg/dL 74-106 [facility] Neutrophils (Bld) [#/Vol] 2.7 10*3/uL 2.0-7.7 [facility] Neutrophils/100 WBC (Bld) 43.3 % 47-70 [facility] Potassium [Moles/Vol] 3.7 mmol/L 3.5-5.1 [facility] Protein [Mass/Vol] 7.2 g/dL 6.4-8.2 [facility] Sodium [Moles/Vol] 142 mmol/L 136-145 [facility] Triglyceride [Mass/Vol] 101 mg/dL <199 [facility] Comment on above: The drugs N-Acetylcy steine and Metamizole may falsely depress this assay.Serum Triglycerides Reference Interval Normal <150 mg/dL Borderline high 150 - 199 mg/dL High 200 - 499 mg/dL Very High > or = 500 mg/dL WBC (Bld) [#/Vol] 6.3 10*3/uL 4.4-11.0 [facility] Blood erythrocytes count (nu mber/volume)Ordered By: Dr. Meza on 07-20-2022 RBC (Bld) [#/Vol] 4.51 10*6/uL 4.2-5.4 [facility] Blood hemoglobin measurement (mass/volume)Ordered By: Dr. Meza on 07-20-2022 Hemoglobin (Bld) [Mass/Vol] 13.8 g/dL 12.0-15.0 [facility] Blood lymphocytes/100 leukoc ytesOrdered By: Dr. Meza on 07-20-2022 Lymphocytes/100 WBC (Bld) 44.8 % 19-41 [facility] Blood monocytes/100 leukocyt esOrdered By: Dr. Meza on 07-20-2022 Monocytes/100 WBC (Bld) 6.2 % 0-10 [facility] Blood platelet mean volumeOr dered By: Dr. Meza on 07-20-2022 Platelet mean volume (Bld) [Entitic vol] 10.5 fL 6.2-12.0 [facility] Determination of erythrocyte mean corpuscular volume (MCV)Ordered By: Dr. Meza on 07-20-2022 MCV (RBC) [Entitic vol] 91.1 fL 81-99 [facility] Hematocrit Auto (Bld) [Volum e fraction]Ordered By: Dr. Meza on 07-20-2022 Hematocrit (Bld) [Volume fraction] 41.1 % 37-47 [facility] - Chemistry and C hemistry - challengeOrdered By: Dr. Meza on 07-20-2022 ALP [Catalytic activity/Vol] 71 U/L 45-117 [facility] ALT [Catalytic activity/Vol] 37 U/L 13-56 [facility] CO2 [Moles/Vol] 32.0 mmol/L 21.0-32.0 [facility] Globulin (S) [Mass/Vol] 3.6 g/dL 2.2-4.2 [facility] Urea nitrogen/Creatinine [Mass ratio] 13.7 mg/mg 10-20 [facility] - Hematology and Cell countsOrdered By: Dr. Meza on 07-20-2022 Erythrocyte distribution width (RBC) [Entitic vol] 43.6 fL 35.1-43.9 [facility] Erythrocyte distribution width (RBC) [Ratio] 13.1 % 11.6-14.6 [facility] Immature granulocytes/100 WBC (Bld) 0.200 % 0.0-0.9 [facility] Comment on above: IG% - Immature Granu locytes (promyelocytes, myelocytes and metamyelocytes) > 1% indicates that a LEFT SHIFT is Present. MCH (RBC) [Entitic mass] 30.6 pg 27.0-32.0 [facility] Nucleated RBC/100 WBC (Bld) [Ratio] 0 % 0-5 [facility] MCHC Auto (RBC) [Mass/Vol]Or dered By: Dr. Meza on 07-20-2022 MCHC (RBC) [Mass/Vol] 33.6 g/dL 32-36 [facility] No Panel InformationOrdered By: Dr. Meza on 07-20-2022 Estimated GFR (MDRD) Amer 84 mL/min >60 [facility] Comment on above: GFR Calc Estimated GFR (MDRD) Non-Af Amer 69 mL/min >60 [facility] Comment on above: Non- GFR Calc Platelets bldOrdered By: Dr. Meza on 07-20-2022 Platelets (Bld) [#/Vol] 277 10*3/uL 150-450 [facility] Serum or plasma albumin michele urement (mass/volume)Ordered By: Dr. Meza on 07-20-2022 Albumin [Mass/Vol] 3.6 g/dL 3.2-5.0 [facility] Serum or plasma albumin/glob ulin mass ratioOrdered By: Dr. Meza on 07-20-2022 Albumin/Globulin [Mass ratio] 1.0 {ratio} 0.9-2.4 [facility] Serum or plasma calcium michele urement (mass/volume)Ordered By: Dr. Meza on 07-20-2022 Calcium [Mass/Vol] 9.2 mg/dL 8.5-10.1 [facility] Serum or plasma cholesterol in HDL measurement (mass/volume)Ordered By: Dr. Meza on 07-20-2022 Cholesterol in HDL [Mass/Vol] 55 mg/dL >40 [facility] Comment on above: The drugs N-Acetylcy steine and Metamizole may falsely depress this assay. Reference Range HDL <40 mg/dL Low HDL Cholesterol HDL >or= 60 mg/dL High HDL Cholesterol Serum or plasma cholesterol in VLDL measurement (mass/volume)Ordered By: Dr. Meza on 07-20-2022 Cholesterol in VLDL [Mass/Vol] 20 mg/dL 5-40 [facility] Serum or plasma creatinine m easurement (mass/volume)Ordered By: Dr. Meza on 07-20-2022 Creatinine [Mass/Vol] 0.88 mg/dL 0.55-1.02 [facility] Comment on above: The validity of the calculated GFR & GFRAA in patients over 70 years has not been determined. Clinical correlation is essential. Serum or plasma low density lipoprotein (LDL) cholesterol measurement (mass/volume)Ordered By: Dr. Meza on 07-20-2022 Cholesterol in LDL [Mass/Vol] 92 mg/dL 0-130 [facility] Serum or plasma urea nitroge n measurement (mass/volume)Ordered By: Dr. Meza on 07-20-2022 Urea nitrogen [Mass/Vol] 12 mg/dL 7-18 [facility] Thin prep Papanicolaou smear with manual screeningOrdered By: Dr. Meza on 07-20-2022 Thin prep Papanicolaou smear with manual screening 23 U/L 15-37 [facility] Thin prep Papanicolaou smear with manual screening 4 5-15 [facility] PT Progress Noteon 1 PT Progress Note [...] POC 02/11. completed supervising PT [facility] [place] [facility] Subjective Patient reports:. Reports occ [...] code time is 42 minutes. Therapeutic exercise (87156): timed minutes 42, units 3 . L [...] less aggra (more content not included)... Normal [employer] Therapy Re-eval Noteon 07-05 Therapy Re-eval Note [...] POC 02/11. completed supervising PT [facility] [place] [facility] Subjective Patient reports:. Reports occ [...] code time is 42 minutes. Therapeutic exercise (81722): timed minutes 42, units 3 . L [...] less ag (more content not included)... Normal [employer] PT Progress Noteon 1 PT Progress Note [...] POC 01/11. completed supervising PT [facility] [place] [facility] Subjective Patient reports:. Wearing her [...] code time is 43 minutes. Therapeutic exercise (37097): timed minutes 20, units 1 . *See [...] green band (more content not included)... Normal [employer] PT Progress Noteon 1 PT Progress Note [...] POC 12/12. completed supervising PT [facility] [place] [facility] Subjective Patient reports:. States she [...] code time is 39 minutes. Therapeutic exercise (46958): timed minutes 17, units 1 . *See [...] (not today) (more content not included)... Normal [employer] PT Progress Noteon 1 PT Progress Note [...] POC 11/11. completed supervising PT [facility] [place] [facility] Subjective Patient reports:. Pt rates [...] code time is 43 minutes. Therapeutic exercise (08343): timed minutes 20, units 1 . *See [...] flexband 5 (more content not included)... Normal [facility] PT Progress Noteon 1 PT Progress Note [...] POC 10/14. completed supervising PT [facility] [place] [facility] Subjective Patient reports:. States she [...] time in clinic is minutes. Therapeutic exercise (49648): timed minutes 6, units 0 . *See [...] no dat (more content not included)... Normal [facility] PT Progress Noteon 1 PT Progress Note [...] POC 09/13. completed supervising PT [facility] [place] [facility] Subjective Patient reports:. States she started to have pain on the lateral top of her left foot. Pain started on Friday. She did go to [place] on Friday, but states she rode in [...] clinic started at 9:30 am Therapeutic exercise (88885): timed minutes 20, units 1 . *See [...] band 2x12 (more content not included)... Normal [facility] PT Progress Noteon 1 PT Progress Note [...] number: 16 POC supervising PT [facility] [place] [facility] Subjective Patient reports:. Notes difficulty [...] code time is 25 minutes. Therapeutic exercise (58824): timed minutes 25, units 2 . *See [...] assist desc (more content not included)... Normal [facility] Therapy Re-eval Noteon 05-17 Therapy Re-eval Note [...] number: 16 POC supervising PT [facility] [place] [facility] Subjective Patient reports:. Notes difficulty [...] code time is 25 minutes. Therapeutic exercise (29918): timed minutes 25, units 2 . *See [...] number: 15 POC supervising PT [facility] [place] [facility] Subjective Patient reports:. Reports her [...] code time is 38 minutes. Therapeutic exercise (04437): timed minutes 27, units 2 . *See [...] ankle P (more content not included)... Normal [facility] PT Progress Noteon 1 PT Progress Note [...] number: 14 POC supervising PT [facility] [place] [facility] Subjective Patient reports:. Her back [...] in clinic is 44 minutes. Therapeutic exercise (70593): timed minutes 19, units 1 . *See [...] (X, no time) - DF/ INV/ EV Dexter band 2x12 (X, no time) Standing fitter board w/ 2.5 insert: PF/DR x20, INV/EV x20 (for ROM) (X, no time) FWD Step ups 6 steps L x12 (P, reps) L lateral step ups x12 (P, reps) B standing heel raises 2 x10 Supine leg press (more content not included)... Normal [facility] PT Progress Noteon 1 PT Progress Note [...] number: 13 POC supervising PT [facility] [place] [facility] Subjective Patient reports:. 10/18 left [...] code time is 44 minutes. Therapeutic exercise (47993): timed minutes 32, units 2 . *See [...] Blue band 2x12 - DF/ INV/ EV Dexter band 2x12 (X, no time) Standing fitter board w/ 2.5 insert: PF/DR x20, INV/EV x20 (for ROM) FWD Step ups 6 steps L x10 L lateral step ups x10 (N) B standing heel raises 2 x10 (more content not included)... Normal [facility] PT Progress Noteon 1 PT Progress Note [...] and STW, both manually and with hawk certified dialysis technician tools. Patient arrived 15 min late today [...] 12 POC 08/23 supervising PT [facility] [place] [facility] Subjective Patient reports:. Reports 3/10 [...] code time is 30 minutes. Therapeutic exercise (29235): timed minutes 15 . *See Gait* *BRACE [...] (X, no time) - DF/ INV/ EV Dexter band 2x12 (X, no time) Standing fitter board w/ 2.5 insert: PF/DR 2 x10, INV/EV 2x10 FWD Step ups 6 steps L x10 (X, no time) L lateral step ups (A) B standing heel raises 2 x10 Supine leg press, light weight - 50# B 2x10 (P, s (more content not included)... Normal [facility] PT Progress Noteon 1 PT Progress Note [...] 11 POC 07/24 supervising PT [facility] [place] [facility] Subjective Patient reports:. Pain in [...] in clinic is 46 minutes. Therapeutic exercise (59493): timed minutes 34, units 2 . *See [...] DF/ INV (more content not included)... Normal [facility] PT Progress Noteon 1 PT Progress Note [...] 10 POC 06/23 supervising PT [facility] [place] [facility] Subjective Patient reports:. L ankle [...] code time is 53 minutes. Therapeutic exercise (33383): timed minutes 23, units 2 . *See [...] Blue band 2x10 - DF/ INV/ EV Dexter band 2x10 Seated fitter board w/ 2.5 [...] 75% WBing (more content not included)... Normal [facility] PT Progress Note No report was sent Normal [facility] PT Progress Noteon PT Progress Note Therapy [...] 9 POC 05/24 supervising PT [facility] [place] [facility] Subjective Patient reports:. Pt. is [...] code time is 41 minutes. Therapeutic exercise (40612): timed minutes 33, units 2 . *Per [...] 2x10 (P, resistance) - DF/ INV/ EV Dexter band 2x10 (P resistance) towel crunchs 2x10 Seated fitter board w/ 2.5 insert: PF/DR 2 x10, INV/EV 2x10 adjusted wrist certified dialysis technician height on crutches, (X) pt (more content not included)... Normal [facility] PT Progress Noteon 1 PT Progress Note [...] 8 POC 04/23 supervising PT [facility] [place] [facility] Subjective Patient reports:. Pt. states [...] code time is 41 minutes. Therapeutic exercise (25891): timed minutes 33, units 2 . *Per [...] green step (more content not included)... Normal [facility] PT Progress Noteon 1 PT Progress Note [...] 7 POC 03/23 supervising PT [facility] [place] [facility] Subjective Patient reports:. Pt. c/o [...] code time is 43 minutes. Therapeutic exercise (05353): timed minutes 28, units 2 . *Per [...] PF/DR 2 x10, INV/EV 2x10 adjusted wrist certified dialysis technician height on crutches, (X) pt education on definition of partial WBAT (X) . Manual Therapy (27167): timed minutes 15, units 1 . PROM into DF 10 x 5 STM/ to plantar fascia ASTM (A, if (more content not included)... Normal [facility] PT Progress Noteon 1 PT Progress Note [...] 6 POC 01/21 supervising PT [facility] [place] [facility] Subjective Patient reports:. Patient reports [...] code time is 40 minutes. Therapeutic exercise (60106): timed minutes 30, units 2 . *Per [...] PF/DR 2 x10, INV/EV 2x10 adjusted wrist certified dialysis technician height on crutches, (X) pt education on definition of partial WBAT (X) . Manual Therapy (06851): timed minutes 15, units 1 . PROM into DF 10 x 5 STM/ to plantar fascia ASTM (A, if needed). Provided today: education . 04/02 (more content not included)... Normal [facility] PT Progress Noteon PT Progress Note Therapy [...] 5 POC 01/21 supervising PT [facility] [place] [facility] Subjective Patient reports:. Denies L [...] code time is 48 minutes. Therapeutic exercise (19213): timed minutes 33, units 2 . *Per [...] PF/DR 2 x10, INV/EV 2x10 adjusted wrist certified dialysis technician height on crutches, (X) pt education on definition of partial WBAT (X) . Manual Therapy (83125): timed minutes 15, units 1 . PROM [...] 4 POC 12/22 supervising PT [facility] [place] [facility] Subjective Patient reports:. Patient denied L ankle pain pretreatment. Patient told this therapist at last session that the did not want her to do any ankle circles for ROM. Her evaluating therapist called and spoke to legal receptionist approximately 5 min prior to patient's appointment and legal receptionist read notes that said progress ROM as tolerated with no restrictions noted. Patient not comfortable with this stating the told her she was not suppose to do curyung motions. Home program performing as directed: Yes. [...] code time is 60 minutes. Therapeutic exercise (81987): timed minutes 40, units 3 . - [...] 10, inv/emerita (more content not included)... Normal [facility] PT Progress Noteon 1 PT Progress Note [...] 3 POC 11/21 supervising PT [facility] [place] [facility] Subjective Patient reports:. Patient reports [...] code time is 40 minutes. Therapeutic exercise (44848): timed minutes 40, units 3 . practice [...] 2 x10, INV/EV 2x10 (N) adjusted wrist certified dialysis technician height on crutches, (X) pt education on definition of partial WBAT (X) . Manual Therapy (16001): timed minutes 3, units 0 . PROM into DF 5 x10 STM/IASTM to plantar fascia (A). 'Scores and Scales' (more content not included)... Normal [facility] Therapy Communicationon 03-09 Therapy Communication No report was sent Normal [facility] PT Progress Noteon PT Progress Note Therapy [...] 2 POC 10/24 supervising PT [facility] [place] [facility] Subjective Patient reports:. denies pain [...] code time is 40 minutes. Therapeutic exercise (41320): timed minutes 40, units 3 . adjusted wrist certified dialysis technician height on crutches, pt education on definition [...] Signatures Electronically signed by : Antony Tian, MANAGER OF EMPLOYEE RELATIONS; Apr 03 2021 1:36PM EST (Author) Electronically signed by : Nori Osborn, PT; Apr 05 2021 8:41AM EST Normal [facility] PT Initial Evaluationon 03-08 PT Initial Evaluation [...] 1 POC 09/23 supervising PT [facility] [place] [facility] Subjective Current Episode of Functional [...] ankle s (more content not included)... Normal [facility] Surgical Tissue Examon 08-04 Surgical Tissue Exam Test performed at [place] [id number]: JOHANNA DOVE [id number] REQUESTING: MORE LUNA MDFINAL DIAGNOSIS:A) GASTRIC ANTRUM, [...] 16:07PRINTED: 08/06/2018 Page 1 of 1 Normal [facility] Comment on above: Performed By: #### S URG ####[place] [address] Antinuclear Antibodyon 09-09 Antinuclear Antibody 0.3 U Normal <=1.0 (Negative) [facility] Comment on above: Result Comment: Test Performed by:[place] [address] Performed By: #### C BCDIF, C-3, C-4, CH50, DNADS, SANDRA, [id number], CARDABS ####Unless otherwise noted, all testing performed by [address] [phone]: [id number] Director: Wenceslao Perez M.D. Beta-2 Glycoprotein 1, IgAon 09-09-2017 Beta-2 Glycoprotein 1, IgA < 9.4 Normal <15.0 (Negative) [facility] Comment on above: Result Comment: Test Performed by:[address] [address] Performed By: #### C BCDIF, C-3, C-4, CH50, DNADS, SANDRA, [id number], CARDABS ####Unless otherwise noted, all testing performed by [address] [phone]: [id number] Director: Wenceslao Perez M.D. C-3 Complementon 09-09-2017 C-3 Complement 131.9 mg/dL Normal 73.0-183.0 [facility] Comment on above: Result Comment: [place] [address] Performed By: #### C BCDIF, C-3, C-4, CH50, DNADS, SANDRA, [id number], CARDABS ####Unless otherwise noted, all testing performed by [address] [phone]: [id number] Director: Wenceslao Perez M.D. C-4 Complementon 09-09-2017 C-4 Complement 28.3 mg/dL Normal 16.0-47.0 [facility] Comment on above: Result Comment: Test Performed by [facility] [address] [place] [address] Performed By: #### C BCDIF, C-3, C-4, CH50, DNADS, SANDRA, [id number], CARDABS ####Unless otherwise noted, all testing performed by [address] [phone]: [id number] Director: Wenceslao Perez M.D. CBC and Differentialon 09-09 Basophils 0.4 % Invalid Interpretation Code [facility] Basophils 0.0 K/mcL Invalid Interpretation Code 0 - 0.2 [facility] Eosinophils 0.3 K/mcL Invalid Interpretation Code 0 - 0.5 [facility] Erythrocytes (RBC) 4.17 M/mcL Invalid Interpretation Code 3.7 - 5.0 [facility] Hematocrit (HCT) 38.7 % Normal 34.4-44.8 [facility] Comment on above: Performed By: #### C BCDIF, C-3, C-4, CH50, DNADS, SANDRA, [id number], CARDABS ####Unless otherwise noted, all testing performed by [address] [phone]: [id number] Director: Wenceslao Perez M.D. Hemoglobin (HGB) 13.1 g/dL Normal 11.6-15.4 [facility] Comment on above: Performed By: #### C BCDIF, C-3, C-4, CH50, DNADS, SANDRA, [id number], CARDABS ####Unless otherwise noted, all testing performed by [address] [phone]: [id number] Director: Wenceslao Perez M.D. Lymphocytes 2.7 K/mcL Invalid Interpretation Code 1.0 - 3.7 [facility] MCH 31.3 pg Normal 27.9-33.9 [facility] Comment on above: Performed By: #### C BCDIF, C-3, C-4, CH50, DNADS, SANDRA, [id number], CARDABS ####Unless otherwise noted, all testing performed by [address] [phone]: [id number] Director: Wenceslao Perez M.D. MCHC 33.8 g/dL Normal 33.1-35.1 [facility] Comment on above: Performed By: #### C BCDIF, C-3, C-4, CH50, DNADS, SANDRA, [id number], CARDABS ####Unless otherwise noted, all testing performed by [address] [phone]: [id number] Director: Wenceslao Perez M.D. MCV 92.7 fL Normal 82.6-98.9 [facility] Comment on above: Performed By: #### C BCDIF, C-3, C-4, CH50, DNADS, SANDRA, [id number], CARDABS ####Unless otherwise noted, all testing performed by [address] [phone]: [id number] Director: Wenceslao Perez M.D. Monocytes 0.3 K/mcL Invalid Interpretation Code 0.1 - 0.6 [facility] Neutrophils 2.6 K/mcL Invalid Interpretation Code 1.2 - 6.9 [facility] Platelet mean volume (PMV) 9 fL Invalid Interpretation Code 7.0 - 10.6 [facility] Platelets 255 K/mcL Invalid Interpretation Code 162 - 402 [facility] RDW-CA 12.9 % Normal 10.0-14.4 [facility] Comment on above: Performed By: #### C BCDIF, C-3, C-4, CH50, DNADS, SANDRA, [id number], CARDABS ####Unless otherwise noted, all testing performed by [address] [phone]: [id number] Director: Wenceslao Perez M.D. Segmented Neut 43.7 % Invalid Interpretation Code [facility] T8 suppressor/100 cells 5.1 10*3/uL Invalid Interpretation Code [facility] T8 suppressor/100 cells 45.2 10*3/uL Invalid Interpretation Code [facility] T8 suppressor/100 cells 5.6 10*3/uL Invalid Interpretation Code [facility] WBC (Leukocytes) 5.9 K/mcL Invalid Interpretation Code 3.4 - 10.6 [facility] CBC with Diffon 09-09-2017 Basophils Auto #/vol (Bld) 0.0 K/mcL Normal 0-0.2 [facility] Comment on above: Performed By: #### C BCDIF, C-3, C-4, CH50, DNADS, SANDRA, [id number], CARDABS ####Unless otherwise noted, all testing performed by [address] [phone]: [id number] Director: Wenceslao Perez M.D. Basophils/100 WBC Auto (Bld) 0.4 % Normal [facility] Comment on above: Performed By: #### C BCDIF, C-3, C-4, CH50, DNADS, SANDRA, [id number], CARDABS ####Unless otherwise noted, all testing performed by [address] [phone]: [id number] Director: Wenceslao Perez M.D. Eosinophils 0.3 K/mcL Normal 0-0.5 [facility] Comment on above: Performed By: #### C BCDIF, C-3, C-4, CH50, DNADS, SANDRA, [id number], CARDABS ####Unless otherwise noted, all testing performed by [address] [phone]: [id number] Director: Wenceslao Perez M.D. Eosinophils/100 leukocytes 5.1 % Normal [facility] Comment on above: Performed By: #### C BCDIF, C-3, C-4, CH50, DNADS, SANDRA, [id number], CARDABS ####Unless otherwise noted, all testing performed by [address] [phone]: [id number] Director: Wenceslao Perez M.D. Erythrocytes (RBC) 4.17 M/mcL Normal 3.7-5.0 [facility] Comment on above: Performed By: #### C BCDIF, C-3, C-4, CH50, DNADS, SANDRA, [id number], CARDABS ####Unless otherwise noted, all testing performed by [address] [phone]: [id number] Director: Wenceslao Perez M.D. Lymphocytes 2.7 K/mcL Normal 1.0-3.7 [facility] Comment on above: Performed By: #### C BCDIF, C-3, C-4, CH50, DNADS, SANDRA, [id number], CARDABS ####Unless otherwise noted, all testing performed by [address] [phone]: [id number] Director: Wenceslao Perez M.D. Lymphocytes/100 leukocytes 45.2 % Normal [facility] Comment on above: Performed By: #### C BCDIF, C-3, C-4, CH50, DNADS, SANDRA, [id number], CARDABS ####Unless otherwise noted, all testing performed by [address] [phone]: [id number] Director: Wenceslao Perez M.D. Monocytes 0.3 K/mcL Normal 0.1-0.6 [facility] Comment on above: Performed By: #### C BCDIF, C-3, C-4, CH50, DNADS, SANDRA, [id number], CARDABS ####Unless otherwise noted, all testing performed by [address] [phone]: [id number] Director: Wenceslao Perez M.D. Monocytes/100 leukocytes 5.6 % Normal [facility] Comment on above: Performed By: #### C BCDIF, C-3, C-4, CH50, DNADS, SANDRA, [id number], CARDABS ####Unless otherwise noted, all testing performed by [address] [phone]: [id number] Director: Wenceslao Perez M.D. Neutrophils 2.6 K/mcL Normal 1.2-6.9 [facility] Comment on above: Performed By: #### C BCDIF, C-3, C-4, CH50, DNADS, SANDRA, [id number], CARDABS ####Unless otherwise noted, all testing performed by [address] [phone]: [id number] Director: Wenceslao Perez M.D. Platelet mean volume (PMV) 9.0 fL Normal 7.0-10.6 [facility] Comment on above: Performed By: #### C BCDIF, C-3, C-4, CH50, DNADS, SANDRA, [id number], CARDABS ####Unless otherwise noted, all testing performed by [address] [phone]: [id number] Director: Wenceslao Perez M.D. Platelets 255 K/mcL Normal 162-402 [facility] Comment on above: Performed By: #### C BCDIF, C-3, C-4, CH50, DNADS, SANDRA, [id number], CARDABS ####Unless otherwise noted, all testing performed by [address] [phone]: [id number] Director: Wenceslao Perez M.D. Segmented Neut % 43.7 % Normal [facility] Comment on above: Performed By: #### C BCDIF, C-3, C-4, CH50, DNADS, SANDRA, [id number], CARDABS ####Unless otherwise noted, all testing performed by [address] [phone]: [id number] Director: Wenceslao Perez M.D. WBC (Leukocytes) 5.9 K/mcL Normal 3.4-10.6 [facility] Comment on above: Performed By: #### C BCDIF, C-3, C-4, CH50, DNADS, SANDRA, [id number], CARDABS ####Unless otherwise noted, all testing performed by [address] [phone]: [id number] Director: Wenceslao Perez M.D. CH50 (Complement Total)on CH50 (Complement Total) 61 U/mL Normal 30 - 75 [facility] Comment on above: Result Comment: Test Performed by:[address] [address] Performed By: #### C BCDIF, C-3, C-4, CH50, DNADS, SANDRA, [id number], CARDABS ####Unless otherwise noted, all testing performed by [address] [phone]: [id number] Director: Wenceslao Perez M.D. Cardiolipin Autoanitbodieson 09-09-2017 Cardiolipin IgG < 9 Normal 0-15 [facility] Comment on above: Performed By: #### C BCDIF, C-3, C-4, CH50, DNADS, SANDRA, [id number], CARDABS ####Unless otherwise noted, all testing performed by [address] [phone]: [id number] Director: Wenceslao Perez M.D. Cardiolipin, IgA < 9 Normal 0-15 [facility] Comment on above: Result Comment: Test performed by:[address] [id number] Performed by [facility] [address] [place] [address] Performed By: #### C BCDIF, C-3, C-4, CH50, DNADS, SANDRA, [id number], CARDABS ####Unless otherwise noted, all testing performed by [address] [phone]: [id number] Director: Wenceslao Perez M.D. Cardiolipin, IgM < 9 Normal 0-15 [facility] Comment on above: Performed By: #### C BCDIF, C-3, C-4, CH50, DNADS, SANDRA, [id number], CARDABS ####Unless otherwise noted, all testing performed by [address] [phone]: [id number] Director: Wenceslao Perez M.D. DNA Double Stranded(dsDNA)Ab on 09-09-2017 DNA Double Stranded(dsDNA)Ab < 10 Normal <10 [facility] Comment on above: Result Comment: [place] [address] Performed By: #### C BCDIF, C-3, C-4, CH50, DNADS, SANDRA, [id number], CARDABS ####Unless otherwise noted, all testing performed by [address] [phone]: [id number] Director: Wenceslao Perez M.D. MANNIE Antibodieson 09-09-2017 MANNIE Antibodies 4 Units Normal 0-19 [facility] Comment on above: Result Comment: THE MANNIE Screen tests for SSA,SSB,SM,SM/DATA WAREHOUSING SPECIALIST,SCL-70, AND JO1.Reference Ranges:<20 Units = Phitisvy97-23 Units = Borderline>25 Units = [place] [address] Performed By: #### E NAAB ####Unless otherwise noted, all testing performed by [address] [phone]: [id number] Director: Wenceslao Perez M.D. HAND BILATERAL, 2 VIEWSon Bilirubin (direct) Final ReportAccession No: [id number] Performed: Sep 09 2017 2:04PMExamination: HAND [...] DENI CASTRO D.O.Trans: apope : cc: Normal [facility] OCT MACULA CIRRUS OU (BOTH E YES) [facility] Vital Signs Date Time Vital Sign Value Performing Clinician Facility 12-08-2024 15:01-0400 Body height 172.[address] Margarita Meza DO Work Phone: [facility] [place] 12-08-2024 15:01-0400 Body mass index (BMI) [Ratio] 32.8 kg/m2 Dr. Margarita Meza DO Work Phone: [facility] [place] 12-08-2024 15:01-0400 Body weight 97.[address] Margarita Meza DO Work Phone: [facility] [place] 12-08-2024 15:01-0400 Diastolic blood pressure 84 mm[Hg] Dr. Margarita Meza DO Work Phone: [facility] [place] 12-08-2024 15:01-0400 Systolic blood pressure 136 mm[Hg] Dr. Margarita Meza DO Work Phone: [facility] [place] 09-23-2023 13:55-0500 Body height 172.[address] Margarita Meza Work Phone: [facility] [place] 09-23-2023 13:52-0500 Body mass index (BMI) [Ratio] 33.4 kg/m2 Dr. Margarita Meza Work Phone: [facility] [place] 09-23-2023 13:52-0500 Body weight 99.[address] Margarita Meza Work Phone: [facility] [place] 09-23-2023 13:52-0500 Diastolic blood pressure 78 mm[Hg] Dr. Margarita Meza Work Phone: [facility] [place] 09-23-2023 13:52-0500 Heart rate 62 /min Dr. Margarita Meza Work Phone: [facility] [place] 09-23-2023 13:52-0500 Respiratory rate 18 /min Dr. Margarita Meza Work Phone: [facility] [place] 09-23-2023 13:52-0500 SaO2% (BldA) [Mass fraction] 95 % Dr. Margarita Meza Work Phone: [facility] [place] 09-23-2023 13:52-0500 Systolic blood pressure 157 mm[Hg] Dr. Margarita Meza Work Phone: [facility] [place] 07-24-2022 15:52-0500 Body height 172.[address] Margarita Meza Work Phone: [facility] [place] 07-24-2022 15:52-0500 Body mass index (BMI) [Ratio] 31.6 kg/m2 Dr. Margarita Meza Work Phone: [facility] [place] 07-24-2022 15:52-0500 Body weight 94.[address] Margarita Meza Work Phone: [facility] [place] 07-24-2022 15:52-0500 Diastolic blood pressure 80 mm[Hg] Dr. Margarita Meza Work Phone: [facility] [place] 07-24-2022 15:52-0500 Heart rate 67 /min Dr. Margarita Meza Work Phone: [facility] [place] 07-24-2022 15:52-0500 Respiratory rate 22 /min Dr. Margarita Meza Work Phone: [facility] [place] 07-24-2022 15:52-0500 Systolic blood pressure 135 mm[Hg] Dr. Margarita Meza Work Phone: [facility] [place] 07-15-2022 10:03-0500 Body temperature 97.7 [degF] Dr. Margarita Meza Work Phone: [facility] [place] 07-15-2022 10:03-0500 Diastolic blood pressure 65 mm[Hg] Dr. Margarita Meza Work Phone: [facility] [place] 07-15-2022 10:03-0500 Heart rate 63 /min Dr. Margarita Meza Work Phone: [facility] [place] 07-15-2022 10:03-0500 Respiratory rate 16 /min Dr. Margarita Meza Work Phone: [facility] [place] 07-15-2022 10:03-0500 SaO2% (BldA) [Mass fraction] 96 % Dr. Margarita Meza Work Phone: [facility] [place] 07-15-2022 10:03-0500 Systolic blood pressure 130 mm[Hg] Dr. Margarita Meza Work Phone: [facility] 07-15-2022 07:56-0500 Body mass index (BMI) [Ratio] 30.4 kg/m2 Dr. Margarita Meza Work Phone: [facility] 07-15-2022 07:56-0500 Body weight 90.[address] Margarita Meza Work Phone: [facility] 06-21-2022 08:59-0400 Body mass index (BMI) [Ratio] 31.3 kg/m2 Dr. Margarita Meza Work Phone: [facility] 06-21-2022 08:59-0400 Body weight 93.[address] Margarita Meza Work Phone: [facility] 09-09-2017 13:01-0500 BMI (Body Mass Index) 30.24 kg/m2 Yann Juani [facility] Work Phone: 09-09-2017 13:01-0500 BP Diastolic 72 mm[Hg] Yann [facility] Work Phone: 09-09-2017 13:01-0500 BP Systolic 120 mm[Hg] [facility] Work Phone: 09-09-2017 13:01-0500 [facility]7 [facility] Work Phone: 09-09-2017 13:01-0500 Pulse (Heart Rate) 66 /min Yann Gloria [facility] Work Phone: 09-09-2017 13:01-0500 Weight 90.22 kg Yann Gloria [facility] Work Phone: Encounters Encounter Date Encounter Type Care Provider Facility Start: 02-28-2025 ambulatory ROD FABIAN [facility] Start: 02-14-2025 End: 02-14-2025 Patient encounter procedure Denise Asif OD Work Phone: Optometry Comment on above: PVD (posterior vitre ous detachment), bilateral (Primary Dx); Vitreous floaters, bilateral; Age-related nuclear cataract, bilateral; Myopia, bilateral; Regular astigmatism, bilateral; Presbyopia Start: 02-14-2025 End: 02-14-2025 ambulatory DENISE ASIF Facility:[facility] Start: 01-17-2025 End: 01-17-[address] Margarita Meza DO Work Phone: [facility] Work Phone: Start: 01-17-2025 End: 01-17-[address] Mell Roman DO -Outpatient Breast Imaging Work Phone: Start: 01-17-2025 End: 01-17-2025 ambulatory Margarita Meza Facility:[facility] Start: 12-21-2024 End: 12-21-[address] Margarita Meza DO Work Phone: [facility] Work Phone: Start: 12-21-2024 End: 12-21-[address] Margarita Meza DO -Ultrasound, [facility] Work Phone: Start: 12-21-2024 End: 12-21-2024 ambulatory Margarita Meza Facility:[facility] Start: 12-08-2024 End: 12-08-[address] Margarita Meza DO Work Phone: [facility] Work Phone: Start: 12-08-2024 End: 12-08-2024 Patient encounter procedure Danielle GREER -Laboratory, Specimen Work Phone: Start: 12-08-2024 End: 12-08-2024 Patient encounter procedure Danielle GREER -[facility] Work Phone: Start: 12-08-2024 End: 12-08-2024 ambulatory Margarita Derrick Facility:[facility] Start: 12-08-2024 End: 12-08-2024 ambulatory Margarita Derrick Facility:[facility] Start: 03-23-2024 End: 03-23-2024 ambulatory Margarita Derrick Facility:[facility] Start: 03-23-2024 End: 03-23-2024 ambulatory Osorio Marybel Bri Facility:[facility] Start: 03-06-2024 End: 03-06-2024 ambulatory Margarita Meza Facility:[facility] Start: 11-29-2023 End: 11-29-[address] Margarita Meza Work Phone: [facility] Work Phone: Start: 11-29-2023 End: 11-29-[address] Margarita Meza Work Phone: [facility] Work Phone: Start: 10-06-2023 End: 10-06-[address] Margarita Meza Work Phone: [facility] Work Phone: Start: 09-23-2023 End: 09-23-[address] Margarita Meza Work Phone: [facility] Work Phone: Start: 09-26-2022 End: 09-26-[address] Margarita Meza Work Phone: [facility] Work Phone: Start: 09-26-2022 End: 09-26-[address] Margarita Meza Work Phone: [facility] Start: 08-13-2022 Non-patient / Non-visit Dr. Margarita Meza Work Phone: [facility] Start: 08-13-2022 End: 08-13-[address] Margarita Meza Work Phone: [facility] Work Phone: Start: 08-13-2022 End: 08-13-[address] Margarita Meza Work Phone: [facility]Cardi[facility] Services Start: 07-30-2022 End: 07-30-2022 Patient encounter procedure Denise Asif OD Work Phone: Ophthalmology Comment on above: Posterior vitreous d etachment of right eye (Primary Dx); Vitreous floaters of both eyes; Dry eye syndrome of both eyes; Nuclear sclerotic cataract of both eyes Start: 07-24-2022 End: 07-24-[address] Margarita Meza Work Phone: [facility] Start: 07-24-2022 End: 07-24-[address] Margarita Meza Work Phone: [facility] Work Phone: Start: 07-24-2022 End: 07-24-[address] Margarita Meza Work Phone: [facility]-Outpatient Breast Imaging Start: 07-20-2022 End: 07-20-[address] Margarita Meza Work Phone: [facility] Work Phone: Start: 07-20-2022 End: 07-20-[address] Margarita Meza Work Phone: [facility]Laboratory Start: 07-15-2022 Non-patient / Non-visit Dr. Margarita Meza Work Phone: [facility] Start: 07-15-2022 End: 07-15-2022 Admission to same day surgery center Dr. Margarita Meza Work Phone: [facility]-Endoscopy Start: 06-21-2022 Non-patient / Non-visit Dr. Margarita Meza Work Phone: [facility] Start: 09-10-2021 Patient encounter procedure [facility] Start: 07-05-2021 Patient encounter procedure [facility] Work Phone: Start: 06-27-2021 Patient encounter procedure Margarita eMza Work Phone[facility] Work [facility] Start: 06-20-2021 Patient encounter procedure Margarita Meza Work Phone: [facility] Work Phone: Start: 06-13-2021 Patient encounter procedure Margarita Godoy Malbhargavi Work Phone: [facility] Work Phone: Start: 06-06-2021 Patient encounter procedure Margarita Godoy Malbhargavi Work Phone: [facility] Work Phone: Start: 05-30-2021 Patient encounter procedure [facility]arita Godoy Malys [facility] Start: 05-17-2021 Patient encounter procedure Margarita Godoy Malbhargavi Work Phone[facility] Work Phone: Start: 05-09-2021 Patient encounter procedure Margarita Godoy Malbhargavi Work Phone[facility] Work Phone: Start: 05-09-2021 PTFUADULT4, Provider : Kisha Fernandez, Status: Pen, Time: 11:30 AM Margarita A Malys Work Phone[facility] Work Phone: Start: 05-07-2021 Patient encounter procedure Margarita Godoy Malbhargavi [facility] Work Phone: Start: 05-02-2021 PTFUADULT4, Provider : Kisha Fernandez, Status: Pen, Time: 11:30 AM Margarita A Malys Work Phone: [facility] Work Phone: Start: 04-30-2021 Patient encounter procedure Margarita A Malys Work Phone[facility] Work Phone: Start: 04-25-2021 Patient encounter procedure Margarita Meza Work Phone: [facility] Work Phone: Start: 04-25-2021 PTFUADULT4, Provider : Kisha Fernandez, Status: Pen, Time: 11:30 AM Margarita Meza Work Phone[facility] Work Phone: Start: 04-23-2021 Patient encounter procedure Margarita Meza Work Phone[facility] Work Phone: Start: 04-23-2021 PTFUADULT4, Provider : Kisha Fernandez, Status: Pen, Time: 11:30 AM Margarita Meza Work [facility]: [facility] Work Phone: Start: 04-20-2021 Patient encounter procedure Margarita Meza Work Phone[facility] Work Phone: Start: 04-16-2021 Patient encounter procedure Margarita Meza Work Phone[facility] Work Phone: Start: 04-11-2021 Patient encounter procedure Margarita Meza Work Phone: [facility] Work Phone: Start: 04-11-2021 PTFUADULT4, Provider : Denise Dee, Status: Pen, Time: 11:30 AM Margarita Meza Work [facility] Work Phone: Start: 04-09-2021 Patient encounter procedure Margarita Meza Work Phone: [facility] Work Phone: Start: 04-04-2021 PTFUADULT4, Provider : Kisha Fernandez, Status: Pen, Time: 11:30 AM Margarita Meza Work Phone: [facility] Work Phone: Start: 04-02-2021 Patient encounter procedure Margarita Meza Work Phone: [facility] Work Phone: Start: 03-30-2021 Patient encounter procedure Margarita Meza Work Phone: [facility] Work Phone: Start: 03-27-2021 Patient encounter procedure Margarita Meza Work Phone: [facility] Work Phone: Start: 03-22-2021 Patient encounter procedure Margarita Meza Work Phone: [facility] Work Phone: Start: 12-01-2020 End: 12-01-2020 Patient encounter procedure MARTHA BALL [facility] Start: 12-01-2020 End: 12-01-2020 Patient encounter procedure Denise Dickson Work Phone: [facility] Start: 11-09-2020 End: 11-09-2020 Patient encounter procedure MARGARITA MEZA [facility] Start: 11-09-2020 End: 11-09-2020 Patient encounter procedure Gabi Long [facility] Start: 06-24-2019 Patient encounter procedure Felicia Medellin [facility] Work Phone: Start: 06-22-2019 Patient encounter procedure Renetta Waite [facility] Work Phone: Start: 06-18-2019 Patient encounter procedure Renetta Waite [facility] Work Phone: Start: 08-04-2018 End: 08-04-2018 Patient encounter procedure MORE LUNA [facility] Start: 08-04-2018 End: 08-04-2018 Patient encounter procedure More [place] Facility:[facility] Start: 07-22-2018 End: 10-12-2018 Patient encounter procedure Deni Ballard Facility:[facility] Start: 07-22-2018 Patient encounter procedure Facility:[id number] Start: 10-28-2017 End: 11-21-2017 Patient encounter procedure Margarita Meza Facility:[facility] Start: 09-09-2017 End: 09-09-2017 Ambulatory YANN CORRINE STARYANICK [facility] Start: 09-09-2017 Ambulatory Yann Gloria [facility] ty:[place] Start: 09-09-2017 End: 09-09-2017 Ambulatory Yann Corrine Stadnick Work Phone: [facility] Start: 09-09-2017 Office/outpatient visit, new, level 4 Yann Corrine Stadnick Work Phone: [facility] Start: 09-16-2014 Patient encounter status Denise Asif OD Work Phone: [facility] Work Phone: Procedures Date Procedure [...] RSV Vaccine (1 - 1-dose 75+ series) [facility] Start: 02-20-2026 End: 02-20-2026 Patient encounter procedure 02/20/2026 8:00 AM EDT Office Visit [facility] [address] [place] [address] Denise Asif, OD [address] [place] [address] Eye exam/MMO $10 Optometry Comment on above: Eye exam/MMO $10 Start: 05-09-2025 Influenza vaccination Influenz a Vaccine (Season Ended) [facility] Start: 05-09-2024 Covid-19 Vaccine ( season) Covid-19 Vaccine ( season) [facility] Start: 08-04-2023 Colonoscopy COLONOSCOPY [facility] Start: 08-04-2023 COLORECTAL CANCER SCREENING COLORECTAL CANCER SCREENING [facility] Start: 08-04-2023 Screening for malign ant neoplasm of colon [facility] Start: 07-15-2022 Colonoscopy w/biopsy single/multiple COLONOSCOPY AND BIOPSY [facility] Start: 07-15-2022 Patient discharge [facility] Start: 05-09-2022 Influenza vaccination INFLUENZA (#1) [facility] Start: 11-08-2021 HPV TESTING HPV TESTING [facility] Start: 11-08-2021 PAP TESTING PAP TESTING [facility] Start: 07-05-2021 NASRA, Provider : Nori Osborn, Status: Pen, Time: 11:45 AM PTRECHECKWalt, Provider: Nori Osborn, Status: Pen, Time: 11:45 AM [facility] Work Phone: Start: 06-28-2021 NASRA, Provider : Nori Osborn, Status: Pen, Time: 1:30 PM PTRECHECKWalt, Provider: Nori Osborn, Status: Pen, Time: 1:30 PM [facility] Work Phone: Start: 06-27-2021 PTFUADULT4, Provider : Kisha Fernandez, Status: Pen, Time: 10:45 AM PTFUADULT4, Provider: Kisha Fernandez, Status: Pen, Time: 10:45 AM [facility] Work Phone: Start: 06-20-2021 PTFUADULT4, Provider : Kisha Fernandez, Status: Pen, Time: 11:30 AM PTFUADULT4, Provider: Kisha Fernandez, Status: Pen, Time: 11:30 AM [facility] Work Phone: Start: 06-13-2021 PTFUADULT4, Provider : Kisha Fernandez, Status: Pen, Time: 11:30 AM PTFUADULT4, Provider: Kisha Fernandez, Status: Pen, Time: 11:30 AM [facility] Work Phone: Start: 06-06-2021 PTFUADULT4, Provider : Kisha Fernandez, Status: Pen, Time: 11:30 AM PTFUADULT4, Provider: Kisha Fernandez, Status: Pen, Time: 11:30 AM [facility] Work Phone: Start: 05-31-2021 Lipid panel Lipid Screening [facility] Start: 05-31-2021 LIPID SCREEN LIPID SCREEN [facility] Start: 05-30-2021 PTFUADULT4, Provider : Kisha Fernandez, Status: Pen, Time: 9:15 AM PTFUADULT4, Provider: Kisha Fernandez, Status: Pen, Time: 9:15 AM [facility] Work Phone: Start: 05-25-2021 PTFUADULT4, Provider : Radha Galan, Status: Pen, Time: 2:00 PM PTFUADULT4, Provider: Radha Galan, Status: Pen, Time: 2:00 PM [facility] Work Phone: Start: 05-17-2021 PTRECHADUL, Provider : Nori Osborn, Status: Pen, Time: 1:30 PM PTRECHADUL, Provider: Nori Osborn, Status: Pen, Time: 1:30 PM [facility] Work Phone: Start: 05-11-2021 PTFUADULT4, Provider : Kisha Fernandez, Status: Pen, Time: 9:15 AM PTFUADULT4, Provider: Kisha Fernandez, Status: Pen, Time: 9:15 AM [facility] Work Phone: Start: 05-09-2021 PTFUADULT4, Provider : Kisha Fernandez, Status: Pen, Time: 11:30 AM PTFUADULT4, Provider: Kisha Fernandez, Status: Pen, Time: 11:30 AM [facility] Work Phone: Start: 05-07-2021 PTFUADULT4, Provider : Kisha Fernandez, Status: Pen, Time: 1:15 PM PTFUADULT4, Provider: Kisha Fernandez, Status: Pen, Time: 1:15 PM [facility] Work Phone: Start: 05-02-2021 PTFUADULT4, Provider : Kisha Fernandez, Status: Pen, Time: 11:30 AM PTFUADULT4, Provider: Kisha Fernandez, Status: Pen, Time: 11:30 AM [facility] Work Phone: Start: 05-02-2021 PTFUADULT4, Provider : Kisha Fernandez, Status: Pen, Time: 10:45 AM PTFUADULT4, Provider: Kisha Fernandez, Status: Pen, Time: 10:45 AM [facility] Work Phone: Start: 04-30-2021 PTFUADULT4, Provider : Kisha Fernandez, Status: Pen, Time: 1:15 PM PTFUADULT4, Provider: Kisha Fernandez, Status: Pen, Time: 1:15 PM [facility] Work Phone: Start: 04-25-2021 PTFUADULT4, Provider : Kisha Fernandez, Status: Pen, Time: 11:30 AM PTFUADULT4, Provider: Kisha Fernandez, Status: Pen, Time: 11:30 AM [facility] Work Phone: Start: 04-23-2021 PTFUADULT4, Provider : Kisha Fernandez, Status: Pen, Time: 1:15 PM PTFUADULT4, Provider: Kisha Fernandez, Status: Pen, Time: 1:15 PM [facility] Work Phone: Start: 04-23-2021 PTFUADULT4, Provider : Kisha Fernandez, Status: Pen, Time: 11:30 AM PTFUADULT4, Provider: Kisha Fernandez, Status: Pen, Time: 11:30 AM [facility] Work Phone: Start: 04-20-2021 PTFUADULT4, Provider : Denise Dee, Status: Pen, Time: 10:45 AM PTFUADULT4, Provider: Denise Dee, Status: Pen, Time: 10:45 AM [facility] Work Phone: Start: 04-18-2021 PTFUADULT4, Provider : Kisha Fernandez, Status: Pen, Time: 11:30 AM PTFUADULT4, Provider: Kisha Fernandez, Status: Pen, Time: 11:30 AM [facility] Work Phone: Start: 04-16-2021 PTFUADULT4, Provider : Kisha Fernandez, Status: Pen, Time: 1:15 PM PTFUADULT4, Provider: Kisha Fernandez, Status: Pen, Time: 1:15 PM [facility] Work Phone: Start: 04-11-2021 PTFUADULT4, Provider : Kisha Fernandez, Status: Pen, Time: 11:30 AM PTFUADULT4, Provider: Kisha Fernandez, Status: Pen, Time: 11:30 AM [facility] Work Phone: Start: 04-09-2021 PTFUADULT4, Provider : Kisha Fernandez, Status: Pen, Time: 1:15 PM PTFUADULT4, Provider: Kisha Fernandez, Status: Pen, Time: 1:15 PM [facility] Work Phone: Start: 04-04-2021 PTFUADULT4, Provider : Kisha Fernandez, Status: Pen, Time: 11:30 AM PTFUADULT4, Provider: Kisha Fernandez, Status: Pen, Time: 11:30 AM [facility] Start: 04-02-2021 PTFUADULT4, Provider : Kisha Fernandez, Status: Pen, Time: 1:15 PM PTFUADULT4, Provider: Kisha Fernandez, Status: Pen, Time: 1:15 PM [facility]: Start: 03-30-2021 PTFUADULT4, Provider : Kisha Fernandez, Status: Pen, Time: 1:15 PM PTFUADULT4, Provider: Kisha Fernandez, Status: Pen, Time: 1:15 PM [facility] Work Phone: Start: 03-27-2021 PTFUADULT4, Provider : Antony Tian, Status: Pen, Time: 2:45 PM PTFUADULT4, Provider: Antony Tian, Status: Pen, Time: 2:45 PM [facility] Work Phone: Start: 12-01-2020 End: 12-01-2020 Immunization 12/01/2020 Immunization Primary Care Denise Dickson DO [address] [place] [address] [phone] [facility] [place] [facility] Start: 11-30-2020 COVID-19 Vaccine (2 of 2 - Pfizer series) COVID-19 Vaccine (2 of 2 - Pfizer series) [facility] Start: 05-09-2020 Influenza vaccinatio n given Sequential Influenza Vaccine (#1) [facility] Start: 01-25-2020 DIABETES [facility]CRE[facility] Start: 01-25-2020 Diabetes Screening Diabetes Screenin g [facility] Start: 11-09-2019 Screening for malign ant neoplasm of cervix Cervical Cancer Screening [facility] Start: 11-14-2017 Mammography [address] [facility] Start: 11-14-2017 Screening for malign ant neoplasm of breast Mammogram Screening [facility] Start: 05-09-2017 Influenza vaccination SEQUENTI AL INFLUENZA VACCINE (#1) [facility] Work Phone: Start: 2010 Administration of herpes zoster vaccine Zoster Vaccines (1 of 2) [facility] Start: 2010 Pneumococcal Vaccine : 50+ (1 of 1 - PCV) Pneumococcal Vaccine: 50+ (1 of 1 - PCV) [facility] Start: 2010 Screening for malign ant neoplasm of colon [facility] Start: 2010 SHINGRIX VACCINE (1 of 2) SHINGRIX VACCINE (1 of 2) [facility] Start: 2005 COLOGUARD (FIT-DNA) COLOGUARD (FIT-D NA) [facility] Start: [address] COLONOGRAPHY [facility] Start: 2005 FECAL OCCULT BLOOD FECAL OCCULT BLOO D [facility] Start: 2005 Screening for malign ant neoplasm of colon [facility] Start: 2005 SIGMOIDOSCOPY SIGMOIDOSCOPY [facility] Start: 1979 Urine microalbumin profile [facility] Start: 1978 ANNUAL PCP TEAM INVESTOR RELATIONS SPECIALIST GERMAN DISEASE VISIT ANNUAL PCP TEAM CHRONIC DISEASE VISIT [facility] Start: 1978 BP CONTROLLED (<130/80) BP CON TROLLED (<130/80) [facility] Start: 1978 Hepatitis C antibody , confirmatory test Hepatitis C Screening [facility] Start: 1978 HIV SCREENING HIV SCREENING [facility] Start: 1978 HIV screening HIV Screening [facility] Start: 1975 HIV screening HIV Screening [facility] Start: 1972 Adolescent depressio n screening assessment Depression Screening (PHQ9) [facility] Start: 1963 History and physical examination, annual for health maintenance Wellness Visit [facility] Start: 1960 Screening mammography Mammogram [facility] Start: 1960 HEPATITIS C SCREENING HEPATITIS C SC REENING [facility] Work Phone: Start: 1960 Screening colonoscopy COLONOSCOPY [facility] Work Phone: Start: 1960 End: 1960 Screening for malignant neoplasm of cervix PAP SMEAR [facility] Work Phone: Start: 1960 End: 1960 Tetanus vaccination [employer] Work Phone: End: 09-09-2018 SANDRA SANDRA Routine Abnormal laboratory test result 1 Occurrences starting 09/09/2017 until 09/09/2018 [employer] Work Phone: End: 09-10-2018 Anti-DNA Double-Stranded Antibody Anti-DNA Double-Stranded Antibody Routine Abnormal laboratory test result 1 Occurrences starting 09/09/2017 until 09/10/2018 [employer] Work Phone: End: 09-10-2018 Beta-2 Glycoprotein 1 Antibodies, IgG Beta-2 Glycoprotein 1 Antibodies, IgG Routine Abnormal laboratory test result 1 Occurrences starting 09/09/2017 until 09/10/2018 [employer] Work Phone: End: 09-10-2018 Beta-2 Glycoprotein 1 Antibodies, IgM Beta-2 Glycoprotein 1 Antibodies, IgM Routine Abnormal laboratory test result 1 Occurrences starting 09/09/2017 until 09/10/2018 [employer] Work Phone: End: 09-10-2018 C3 Complement C3 Complement Routine Abnormal laboratory test result 1 Occurrences starting 09/09/2017 until 09/10/2018 [employer] Work Phone: End: 09-10-2018 C4 Complement C4 Complement Routine Abnormal laboratory test result 1 Occurrences starting 09/09/2017 until 09/10/2018 [employer] Phone: End: 09-10-2018 Cardiolipin Antibodies Cardiolipin Antibodies Routine Abnormal laboratory test result 1 Occurrences starting 09/09/2017 until 09/10/2018 [employer] Work Phone: End: 09-10-2018 CBC and Differential CBC and Differential Routine Abnormal laboratory test result 1 Occurrences starting 09/09/2017 until 09/10/2018 [employer] Work Phone: Colonoscopy [facility] Work Phone: Colonoscopy [facility] End: 09-10-2018 Complement, Total Complement, Total Routine Abnormal laboratory test result 1 Occurrences starting 09/09/2017 until 09/10/2018 [employer] Work Phone: End: 09-10-2018 MANNIE Screen (SSA/B,SM,DATA WAREHOUSING SPECIALIST,SCL70,JO1 ) MANNIE Screen (SSA/B,SM,DATA WAREHOUSING SPECIALIST,SCL70,NIKKY 1) Routine Abnormal laboratory test result 1 Occurrences starting 09/09/2017 until 09/10/2018 [facility] Work Phone: Patient referral [facility] Work Phone: [facility] Work Phone: End: 09-09-2018 XR Hand Left 2 Views [facility] Work Phone: End: 09-09-2018 XR Hand Right 2 Views XR Hand Right 2 Views Routine Pain 1 Occurrences starting 09/09/2017 until 09/09/2018 [facility] Work Phone: End: 09-09-2018 XR Wrist Left 2 Views XR Wrist Left 2 Views Routine Pain 1 Occurrences starting 09/09/2017 until 09/09/2018 [facility] Work Phone: End: 09-09-2018 XR Wrist Right 2 Views XR Wrist Right 2 Views Routine Pain 1 Occurrences starting 09/09/2017 until 09/09/2018 [facility] Work Phone: [facility] NEGATED: Highlighted row has been ruled out! Planned Goals not documented [facility] Work Phone: Immunizations Immunization Date Immunization Notes Care Provider Laverne frias 12-01-2020 Pfizer SARS-CoV-2 Vaccination Martha Ball [facility] 11-09-2020 Pfizer SARS-CoV-2 Vaccination Gabi [facility] 06-09-2018 influenza virus vaccine, unspecified formulation Denise Cooperrider OD Work Phone: [facility] 07-24-2015 influenza, seasonal, injectable Denise Delilaher OD Work Phone: [facility] Work Phone: 07-10-2015 influenza virus vaccine, unspecified formulation Denise Maxrider OD Work Phone: [facility] Work Phone: Payers Date Payer Category Payer Unknown [id number] 2024 Self-pay [id number] 2019 Private Health Insurance MMO SUP ERMED PPO [id number] 2017 Unknown 2015 Unknown MMO MED MUTUAL S UPERMED PPO [id number] 2015-Present [id number] 2004 Unknown [id number] 1960 Unknown [id number] 2.16.840.1.874480.3.579.2. 356 1960 Unknown [id number] 2.16.840.1.515279.3.579.2. 278 1960 Unknown [id number] 2.16.840.1.131024.3.579.2. 717 1960 Unknown [id number] 2.16.840.1.396811.3.579.2. 717 1960 Unknown [id number] 2.16.840.1.530360.3.579.2. 903 1960 Unknown [id number] 2.16.840.1.680368.3.579.2. 903 1960 Unknown [id number] 2.16.840.1.665006.3.579.2. 651 Unknown [id number] 2.16.840.1.288675.3.579.2. 462 Unknown [id number] 2.16.840.1.073579.3.579.2. 462 Unknown [id number] 2.16.840.1.387447.3.579.2. 462 Unknown [id number] 2.16.840.1.776716.3.579.2. 462 Unknown [id number] 2.16.840.1.490496.3.579.2. 462 Unknown [id number] 2.16.840.1.447426.3.579.2. 462 Unknown [id number] 2.16.840.1.238451.3.579.2. 462 Social History Date Type Detail Facility Start: 09-10-2017 End: 09-23-2023 Tobacco smoking status [facility] Unknown if ever smoked [facility] Start: 1960 Sex Assigned At Not on file [facility] Work Phone: Start: 04-09-2016 End: 09-09-2017 Tobacco smoking status WIIS Never smoker [facility] Work Phone: Start: 04-09-2016 End: 09-09-2017 Tobacco use and exposure Never used [facility] Start: 09-09-2017 End: 02-14-2025 Alcohol intake Current non-drinker of alcohol (finding) [facility] Start: 07-20-2022 End: 07-30-2022 Exposure to SARS-CoV-2 (event) Not sure [facility] Start: 01-24-2021 Non-smoker [facility] Start: 1960 Sex Assigned At Female [facility] Start: 12-15-2024 End: 12-25-2024 Sex Female (finding) [facility] Start: 08-13-2020 End: 02-14-2025 History of Social function [facility] Start: 08-13-2020 End: 02-14-2025 Tobacco use panel [facility] National Score (1-100), lower number is lower risk Not on file [facility] NEGATED: Highlighted row [facility] Medical Equipment Procedure Code Equipment Code Equipment [...] 3mm low profile screw FDA Start: 01-25-2021 Gqs-Nq-R-Kind Implant - [id number] Start: 06-12-2016 Comment on above: Description: 2MM KENNY CKFIX SCREW, TITANIUM Screw Quickfix 2mm Full Thread Blue Titanium 12mm Bone 3 Prong Self Drill - [id number] Start: 06-12-2016 Wire Ilsa .045in Stainless Steel 5.5in Fixation Trocar Smooth Guide - [id number] Start: 06-12-2016 Sgk-Qy-Z-Kind Implant - [id number] Start: 06-12-2016 Comment on above: Description: 3MM LOW PROFILE SCREW, LOCKING, TITANIUM, CORTICAL Gbw-Lx-Q-Kind Implant - [id number] Start: 06-12-2016 Comment on above: Description: 3MM LOW PROFILE SCREW, LOCKING, TITANIUM, CORTICAL Miw-Ie-Q-Kind Implant - [id number] Start: 06-12-2016 Comment on above: Description: LOW PRO FILE MTP PLATE, TITANIUM, STRAIGHT - SHORT Kfq-Yx-N-Kind Implant - [id number] Start: 06-12-2016 Comment on above: Description: K-WIRE check for [employer] Screw 3mm Full Thread T10 Hexalobe Titanium 14mm Bone Self Drill Solid Lock - [id number] Start: 06-12-2016 Screw 3mm T10 Hexalobe Full Thread Titanium 18mm Bone Self Drill Solid Lock - [id number] Start: 06-12-2016 Comment on above: Description: 3MM LOW PROFILE SCREW, LOCKING, TITANIUM, CORTICAL Screw Low Profil e Screws 3mm Full Thread T10 Hexalobe Titanium 16mm Bone - [id number] Start: 06-12-2016 Comment on above: Description: 3MM LOW PROFILE, SCREW, TITANIUM, CORTICAL Screw Quickfix 3mm T10 Partial Thread Hexalobe Low Profile Titanium 32mm - [id number] Start: 06-12-2016 Comment on above: Description: QUICKFI X SCREW, TITANIUM, PARTIALLY THREADED, CANCELLOUS Goals Date Patient Goal Desired Activity /State Functional Status Date Assessment Result Facility 04-04-2015 Are you deaf, or do you have serious difficulty hearing No 04/04/2015 4:10 PM Joanne Colon LPN No [facility] 04-04-2015 Are you blind, or do you have serious difficulty seeing, even when wearing glasses No 04/04/2015 4:10 PM Joanne Colon LPN No [facility] 04-04-2015 Do you have serious difficulty walking or climbing stairs Yes 04/04/2015 4:10 PM Joanne Colon LPN Yes [facility] 04-04-2015 Do you have difficul ty dressing or bathing No 04/04/2015 4:10 PM Joanne Colon LPN No [facility] 04-04-2015 Because of a physica l, mental, or emotional condition, do you have difficulty doing errands alone such as visiting a physician's office or shopping No 04/04/2015 4:10 PM EDT Joanne Castellon LPN [facility] NEGATED: Highlighted row Functional performance Functional status health issues are not documented Disease [facility] Work Phone: Mental Status Date Assessment Result Facility 07-15-2022 Cognitive function Voice/Name;To [facility] Work Phone: 04-04-2015 Because of a physical, mental, or emotional condition, do you have serious difficulty concentrating, remembering, or making decisions No 04/04/2015 4:10 PM EDT Joanne Castellon LPN [facility] NEGATED: Highlighted row Cognitive function [Interpretation] Cognitive status health issues are not documented Disease [facility] Work Phone: Clinical Notes 03-01-2015 to 02-14-2025 [...] Recommended yearly exams documented in this encounter [facility] 02-14-2025 Note HNO ID: [id number] Author: DENISE ASIF, CHRISTIANO Service: ? Author Type: PHOTOENGRAVING FINISHER Type: Progress Notes Filed: 02/14/2025 08:39 Note [...] neuro exam findings as obtained by others. [facility] 02-14-2025 History of Presen t illness Narrative [...] obtained by others. documented in this encounter [facility] 12-21-2024 Radiology Diagnostic study note [facility] Imaging Services [address] [place] [id number] Abdomen Complete MR#: [id number] Acct: [id number] Name: JOHANNA DOVE Rep #: [id number] : 1960 F 64 From: Kimberly Mason MD PCP: Dr. Margarita Meza DO Status: REG CLI Study:Abdomen Complete Date of Exam: Exam# [id number] Ordering Dr: Coral Meza sa DO ADDENDUM by Dr. Toby Jasso MD on 12/21/24 at 1108 No addendum needed. Reading Location: [facility] 12/21/24 1108 Date cc: Dr. Margarita [...] 3. Additional description as above. Reading Location: [id number] CC: Dr. Margarita Meza DO ~ Back Roll Lathe Operator: Signed [facility] 12-21-2024 Radiology Diagnostic study note [facility] Imaging Services [address] [place] [address] [id number] Pelvic w/ Transvaginal MR#: [id number] Acct: [id number] Name: JOHANNA DOVE Rep #: [id number] : 1960 F 64 From: Paolo Jasso MD PCP: Dr. Margarita Meza DO Status: REG CLI Study:Pelvic w/ Transvaginal Date of Exam: 12/21/24 Exam# [id number] Ordering Dr: Danielle Collins PLUMBING FOREMAN PLUMBING FOREMAN-C PROCEDURE: PELVIC W/ TRANSVAGINAL REASON FOR EXAM: [...] Heterogeneous appearance of the myometrium. Reading Location: [facility] CC: PERCY Collins; Dr. Margarita Meza, DO ~ Back Roll Lathe Operator: Signed [facility] 12-08-2024 Evaluation note Diagnosis Onset Date Resolution Postmenopausal bleeding acute A pril 2024 2:52pm [facility] Work Phone: 1(758) 732-257411-22-2022 Instructions* Patient Instructions* Denise Asif, OD - [...] instructed. Recommended yearly exams. [facility] History of Present illness Narrative* [...] and examined this patient. [facility] NoteDischarge Summary PHYSICAL THERAPY Referral/Discharge [...] PT; Sep 10 2021 12:08PM EST (Author) [id number] History of Present illness Narrative* Pt tolerated [...] to treatment: no change in pain. [facility] Work Phone: 1(349) 610-327905-20-2021 History of Present illness Narrative* Patient is [...] range of motion/joint mobility and strength. [facility] Work Phone: 1(921) 487-356505-20-2021 History of Present illness NarrativePt has attended [...] for 8 weeks or 8 visits. [facility] Work Phone: 1(911) 780-663905-20-2021 Reason for visit Narrative* Initial Evaluation . L trimalleolar ankle fracture s/p repair with hardware 01/25/21. * Referred by: Dr. Dillon [facility] Work Phone: 1(455) 113-539206-24-2015 History of Past illness Narrative* Problem Noted [...] of this encounter (statuses as of 07/30/2022) [facility] Diagnosis Onset Date Resolution Status Hx of colonic polyps acute Cardiac murmur acute Ectopic cardiac beats acute Essential (primary) hypertension chronic Pure hypercholesterolemia [facility] Work Phone: Evaluation note* Diagnosis Posterior vitreous detachment of right eye- Primary Vitreous degeneration Vitreous floaters of both eyes Dry eye syndrome of both eyes Nuclear sclerotic cataract of both eyes Senile nuclear sclerosis documented in this encounter [facility] Diagnosis Onset Date Resolution Status Cardiac murmur acute Chest pain acute Ectopic cardiac beats acute Essential (primary) hypertension chronic Pure hypercholesterolemia [facility] Work Phone: Evaluation note* Diagnosis Encounter [...] astigmatism, bilateral Presbyopia documented in this encounter [facility] N[facility]ative* Patient [...] soreness at the end of treatment. [facility] Work Phone: History of Present illness Narrative* Patient ID confirmed using Name and . * Patient wearing mask throughout session today d/t COVID-19 precautions. * Patient with good tolerance to treatment, no c/o increased pain/discomfort in clinic. Emphasis thisdate on ROM and improving WB acceptance and compliance with 50% PWB. [facility] Work Phone: History of Present illness NarrativePatient tolerated treatment without pain. Reports tightness in plantar region of left foot. Patient has good form/understanding with ther-ex and reports compliance with HEP. Continue with left footROM/ strength to improve flexibility/ambulation/balance.[facility] Work Phone: History of Present illness Narrative* Fair tolerance with TE. About 75% with weight shifts today regarding the left LE. Increased DF to blue Thera-Band which patient tolerated well. STM to foot with tenderness and tightness noted. Reliefnoted following session. * Response to treatment: decreased pain. * Patient was able to complete today's treatment with some difficulty. [facility] Work Phone: Hisowdw of Present illness Narrative* Fair tolerance with [...] to complete today's treatment with some difficulty. [facility] Work Phone: Hisltqh of Present illness Narrative* Fair tolerance with seated stretches and ankle 4-ways. No c/o increased sx.'s noted. Trial step upsand slant board this date which patient notes some soreness but tolerable. Trial IASTM per plan, toplantar fascia to decrease tightness. * Response to treatment: no change in pain. * Patient was able to complete today's treatment with some difficulty. [facility] Work Phone: History of Present illness Narrative* Patient identified by name & . Patient wore a mask during treatment d/t Covid-19 precautions. * Treatment consisted of * . [facility] Work Phone: History of Present illness Narrative* [...] bars. HEP progressed today and handouts given. [facility] Work Phone: History of Present illness Narrative* Patient identified by name & . Patient wore a mask during treatment d/t Covid-19 precautions. * Treatment consisted of * Ambulating with boot, but without crutch some of the time in rehab area. [facility] Work Phone: History of Present illness Narrative* [...] treatment. Pain level the same post treatment. [facility] Work Phone: History of Present illness Narrative* Patient identified by name & . Patient wore a mask during treatment d/t Covid-19 precautions. * Treatment consisted of ther ex's and STW, both manually and with hawk certified dialysis technician tools. Patient arrived 15 min late today and unable to complete all ther ex's this session. Patient pain level the same posttreatment. [facility] Work Phone: History of Present illness Narrative* [...] increase in L ankle pain post treatment. [facility] Work Phone: History of Present illness Narrative* Patient identified by name & . Patient wore a mask during treatment d/t Covid-19 precautions. * Treatment consisted of NMR activities and ther ex's. Patient ambulating without crutches today. Decreased UE assist needed with NMR activities. Improved gait, without assistive device, improved stability of L ankle. Symptoms the same pre and post treatment. [facility] Work Phone: History of Present illness Narrative* [...] to complete today's treatment with some difficulty. [facility] Work Phone: history of Present illness Narrative* [...] with decreased pain to 3/10 post treatment. [facility] Work Phone: Hisqvfx of Present illness Narrative* Patient identified by [...] today pretreatment with slight improvement post treatment. [facility] Work Phone: History of Present illness Narrative* Patient identified by name & . Patient wore a mask during treatment d/t Covid-19 precautions. * Treatment consisted of ther ex's, NMR activities and manual STW done for left ankle ROM, strengthening, balance/stability and decreased restrictions. Patient tolerated treatment well with no exacerbation of symptoms. * Response to treatment: no change in pain. [facility] Work Phone: History of Present illness NarrativePatient identified by name & . Patient wore a mask during treatment d/t Covid-19 precautions. Treatment consisted of ther ex's and NMR activities. Progressed ex's and added NMR activity of hurdles. Patient tolerated progression of treatment well with some slight increase in left ankle pain post treatment and fatigue. 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 DATE CREATED AUTHOR AUTHOR'S ORGANIZ ATION 08/17/2018 [facility] DATE CREATED AUTHOR AUTHOR'S ORGANIZ ATION 08/17/2018 [facility] DATE CREATED AUTHOR AUTHOR'S ORGANIZ ATION 08/17/2018 [facility] DATE CREATED AUTHOR AUTHOR'S ORGANIZ ATION 10/27/2018 [facility] DATE CREATED AUTHOR AUTHOR'S ORGANIZ ATION 12/03/2020 [facility] DATE CREATED AUTHOR AUTHOR'S ORGANIZ ATION 09/10/2021 [facility] DATE CREATED AUTHOR AUTHOR'S ORGANIZ ATION 01/22/2025 [facility] DATE CREATED AUTHOR AUTHOR'S ORGANIZ ATION 02/14/2025 [facility] DATE CREATED AUTHOR AUTHOR'S ORGANIZ ATION [facility]/01/[address] [facility] Reason for Visit (unrecogniz ed section and [...] or prosecute any alcohol or drug abuse patient.[facility] Center[facility] the event this information is protected by the Federal Confidentiality of Alcohol and Drug Abuse Patient Records regulations: The Federal rules restrict any use of the information to criminally investigate or prosecute any alcohol or drug abuse patient.[facility] Care Teams (unrecognized sec tion and content) Engraver Lettering Relationship Specialty Start Date End Date Margarita Meza DO [address] [place] [address] PCP - General Family Medicine 08/24/18 Team [...] Provider, Referring P rovider Active Bibi Blas PLUMBING FOREMAN, PLUMBING FOREMAN-C Attending Provider Active Team Status: Inactive Member [...] 2024 End: December 08, 2024 Danielle Collins PLUMBING FOREMAN, PLUMBING FOREMAN-C Attending Provider Active Start: December 08, 2024 End: December 08, 2024 Team Status: Inactive Member Role Status Dates Dr. 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 [facility]. provides no warranty or guarantee of the accuracy or completeness of information in this document.
== END | disposition home or self-care (01) ==
PROVIDERS: PCP Family Medicine; Referring Provider Podiatrist; Visit Provider Podiatrist
DX: Z01.812 Encounter for preprocedural laboratory examination (principal)
CPT/HCPCS: 36415; 80053; 85025

== ENCOUNTER → 2025-06-23 | Outpatient (CLI) | payer MEDICARE, OTHER, SELFPAY ==
--- OUTSIDE RECORDS SUMMARY | 2025-06-23 15:37 | XMS RPT_ITS | CCD ---
Author Organization [facility] Care Team Providers Care Apiculture Teacher Name Role Phone Unavailable Unavailable Unavailable Margarita Meza Unavailable StadnickYann S Unavailable Unavailable Stadnick, Yann S Unavailable Unavailable Stadnick, Yann S Unavailable Unavailable Stadnick, Yann Campos Unavailable Unavailable STADNICK, YANN CORRINE Unavailable Unavailab More Haas Unavailable Unavailable IMCA Unavailable Unavailable MORE GARCIA Unavailable Unavailable MORE GARCIA Unavailable Unavailable MORE GARCIA Unavailable Unavailable Malys, Margarita A Admitting Unavailable MalysMargarita A Attending Unavailable Derrick Margarita Walt Primary Care Unavailable Deni Ballard Admitting Unavailable [...] Primary Care Unavailable GABI LONG Attending Unavailable Ammonys, Margarita A Unavailable Dr. Margarita Meza Primary Care Provider Elinor Blankenship Attending Provider Unavailable Dr. Jenise Edmonds Attending Provider [phone] Dr. Jenise Edmonds Referring Provider Dr. Jenise Edmonds Other Provider [phone] Margarita Meza Referring Provider [phone] Dr. Romulo Mcguire Attending Provider Margarita Meza DO Primary Care Provider Derrick, Dr. Avila Primary Care Provider Derrick, Dr. Avila Referring Provider Wan AUTOMATIC COIN MACHINE MECHANIC, AUTOMATIC COIN MACHINE MECHANIC-C Bibi Attending Provider Derrick CORREIA, Dr. Avila Primary Care Provider [phone] Derrick CORREIA, Dr. Avila Referring Provider Karina AUTOMATIC COIN MACHINE MECHANIC-CDanielle Attending Provider Karina MARKS-CDanielle Referring Provider Derrick CORREIA, Dr. Avila Attending Provider [phone] Miguel Monzon DO, Dr. Monte Attending Provider Miguel Monzon DO, Dr. Monte Referring Provider DENISE PELAEZ Attending Unavailabl e SELF Referring Unavailable MALBHARGAVI, MARGARITA A Primary Care Unavailable Margarita Meza DO Primary Care Provider [phone] Derrick CORREIA, Dr. Avila Other Provider Jose DPM, Dr. Cai Attending Provider Jose DPM, Dr. Cai Referring Provider Gladys WALTON, Dr. Manzanares Attending Provider DERRICK MARGARITA DO Consulting Unavailable STANFORD WILSONLE DPM Attending Unavailable ROD WILSON DPM Primary Care Unavailable ROD WILSON DPM Admitting Unavailable PROVIDER, UNKNOWN Consulting Unavailable Derrick CORREIA, Dr. Avila Primary Care Provider [phone] Derrick CORREIA, Dr. Avila Referring Provider Harvinder WALTON, Dr. Cardona Attending Provider [phone] Dixon AUTOMATIC COIN MACHINE MECHANICDanielle Attending Unavailable Karina AUTOMATIC COIN MACHINE MECHANICRubiay Referring Unavailable Malys, Margarita Primary Care Unavailable Malys, Margarita Primary Care Unavailable Malys, Margarita Attending Unavailable Malys, Margarita Referring Unavailable Malys, Margarita Primary Care Unavailable Mell Roman Attending UnavailMell Ruiz Referring UnavailRod Cullen Attending Unavailable Rod Wilson Referring Unavailable Malys, Margarita Consulting Unavailable Malys, Margarita Primary Care Unavailable Danielle Collins NP Attending Unavailable Malys, Margarita Primary Care Unavailable Malys, Margarita Referring Unavailable Leighton Graham Attending Unavailable Malys, Margarita Referring Unavailable Malys, Margarita Primary Care Unavailable Brendan Blanton Attending Unavailable Malys, Margarita Primary Care Unavailable Allergies Allergy Classification Reported Allergen(s) Allergy Type Date of Onset Reaction(s) Facility (5 sources) Seasonal allergy; Translations: [SEASONAL ALLERGIES] Propensity to adverse reactions (disorder) 7 Intolerance [facility] Medications Current Medications Medication Drug Class(es) Dates Sig (Normalized) Sig (Original) aspirin 81 mg delayed release oral tablet (13 sources) Platelet Aggregation Inhibitor, Nonsteroidal Anti-inflammatory Drug Start: 06-03-2018 take 1 tablet by mouth once daily Aspirin 81 mg tablet,delayed release (DR/EC) Active 81 mg PO DAILY June 03, 2018 12:00am health maintenance Comment on above: Take 81 mg by mouth once daily. CALCIUM-MAG OXIDE-VITAMIN D3 ORAL (3 sources) CALCIUM-MAG OXIDE-VITAMIN D3 ORAL Take by mouth daily. 0 Active CALCIUM-MAG OXID E-VITAMIN D3 ORAL Take by mouth daily. Active pxnmjgy-foyiuvvdu-wwpznhv D2 500 mg-50 mg-100 unit chewable tablet (11 sources) Start: 09-23-2023 take 3 tablets by mouth once daily dojgibp-lowrgpljb-qryzwom D2 500 mg-50 mg-100 unit chewable tablet Active 3 TABLET PO DAILY September 23, 2023 2:53pm Start: 07-24-2022 End: 09-23-2023 take 3 tablets by mouth once daily kgstikf-gbimjccgp-kfilfgb D2 500 mg-50 mg-100 unit chewable tablet Discontinued 3 TABLET PO DAILY July 24, 2022 4:53pm September 23, 2023 2:54pm Start: 07-24-2022 take 3 tablets by [facility] once daily skdvcat-zsofgvrxc-gnwenkg D2 500 mg-50 mg-100 unit chewable tablet Active 3 TABLET PO DAILY July 24, 2022 3:53pm Start: 05-07-2018 End: 07-24-2022 take 1 tablet by mouth once daily pdurmbv-whvvhoozg-wegtijx D2 500 mg-50 mg-100 unit chewable tablet Discontinued 1 TABLET PO DAILY May 07, 2018 12:00am July 24, 2022 4:55pm Start: 05-07-2018 End: 07-24-2022 take 1 tablet by mouth once daily kotvuic-pnfqiddgc-fjatjug D2 500 mg-50 mg-100 unit chewable tablet Discontinued 1 TABLET PO DAILY May 06, 2018 11:00pm July 24, 2022 3:55pm cholecalciferol 1.25 mg oral capsule (20 sources) Vitamin D Start: 03-16-2025 take 1 capsule by mouth every month as needed Cholecalciferol (Vitamin D3) 1,250 mcg (50,000 unit) capsule Active 1250 ug PO EVERY MONTH as needed March 16, 2025 7:53am Closed trimalleolar fracture Start: 03-23-2024 End: 03-16-2025 take 1 capsule by mouth every other week as needed Cholecalciferol (Vitamin D3) 1,250 mcg (50,000 unit) capsule Discontinued 1250 ug PO every 2 weeks as needed March 23, 2024 1:30pm March 16, 2025 7:55am Closed trimalleolar fracture Start: 05-10-2021 take 1 capsule by [facility] every week cholecalciferol, Vitamin D3, (VITAMIN D3) 1,250 mcg (50,000 unit) cap capsule TAKE 1 CAPSULE BY MOUTH once weekly 05/10/2021 Active Start: 01-26-2021 End: 03-23-2024 take 1 capsule by mouth every week as needed Cholecalciferol (Vitamin D3) 1,250 mcg (50,000 unit) capsule Discontinued 1250 ug PO EVERY WEEK as needed September 23, 2023 2:53pm March 23, 2024 1:32pm Closed trimalleolar fracture Comment on above: TAKE 1 CAPSULE BY [facility] once weekly clobetasol propionate 0.0005 mg/mg topical ointment (10 sources) Corticosteroid Start: 03-14-2025 End: 03-23-2025 Clobetasol 0.05 % ointment Active 1 [facility]MA TOPICAL .COMPLEX 15 1 March 23, 2025 11:31am 1 applic topical daily prn. Small amount and massage in; Start: 09-06-2024 End: 03-14-2025 Clobetasol 0.05 % ointment D iscontinued 1 NMA TOPICAL .COMPLEX 15 September 06, 2024 1:00am March 14, 2025 9:56am 1 applic topical daily prn. Small amount and massage in; Start: 09-06-2024 Clobetasol 0.0 5 % ointment Active 1 [facility] TOPICAL .COMPLEX September 06, 2024 1:00am 1 applic topical daily prn. Small amount and massage in; clonazePAM 0.5 mg oral tablet (2 sources) Benzodiazepine Start: 03-21-2017 take 1 tablet by mouth twice daily clonazePAM (KLONOPIN) 0.5 mg tablet Indications: Insomnia, unspecified type , Anxiety and depression Take 1 tablet by mouth twice daily. 60 tablet 03/21/2017 Active Comment on above: Take 1 tablet by [facility] twice daily. COMPOUNDED PRESCRIPTION (2 sources) Start: 05-28-2016 COMPOUNDED PRESCRIPTION Knee walker / Roll A About 1 Device 0 05/28/2016 Active Comment on above: Knee walker / Roll A About cyclobenzaprine hydrochloride 5 mg oral tablet (2 sources) Muscle Relaxant Start: 01-22-2017 take 1 tablet by mouth once daily at bedtime cyclobenzaprine (FLEXERIL) 5 mg tablet Take 1 tablet by mouth daily at bedtime. 30 tablet 3 01/22/2017 Active Comment on above: Take 1 tablet by [facility] daily at bedtime. ferrous sulfate (2 sources) take 65 mg [...] capsule (5 sources) Serotonin Reuptake Inhibitor Start: 03-21-20 take 1 capsule by mouth once daily FLUoxetine (PROZAC) 20 mg capsule Indications: Anxiety and depression Take 1 capsule by mouth once daily. 30 capsule 3 03/21/2017 Active Comment on above: Take 1 capsule by [facility] once daily. hydroCHLOROthiazide 25 mg / losartan potassium 100 mg oral tablet (7 sources) Thiazide Diuretic, Angiotensin 2 Receptor Traci Start: 12-13-19 losartan-hydroCHL OROthiazide (HYZAAR) 100-25 mg per tablet 12/12/2024 Active Start: 01-08-2024 Losartan-[place] chlorothiazide (Hyzaar) 100-25 mg tablet Active 1 [...] omeprazole 20 mg delayed release oral capsule (13 sources) Proton Pump Inhibitor Start: take 1 capsule by mouth once daily as needed for gastroesophageal reflux disease Omeprazole 20 mg capsule,delayed release(DR/EC) Active 20 mg PO DAILY as needed for gerd December 20, 2019 12:00am omeprazole (PRIL OSEC) 10 mg capsule Take 10 mg by mouth as needed. Active Comment on above: Take 10 mg by mouth as needed. potassium 99 mg extended release oral tablet (1 source) take 1 tablet by mouth once daily potassium 99 mg Tab Take 99 mg by mouth daily. Active potassium gluconate 2.5 meq oral tablet (4 sources) Potassium 99 mg tab Take by mouth once daily. Active Comment on above: Take by mouth once d aily. simvastatin 20 mg oral tablet (20 sources) HMG-CoA Reductase Inhibitor Start: 05-25-2018 take 1 tablet by mouth once daily Simvastatin 20 mg tablet Active 20 mg PO DAILY May 25, 2018 4:37pm Start: 05-04-2018 End: 05-25-2018 take 1 tablet by mouth every other day Simvastatin 20 mg tablet Discontinued 20 mg PO .QOD May 04, 2018 8:10am May 25, 2018 4:37pm Start: 03-21-2017 End: 05-04-2018 take 1 tablet by mouth once daily in the morning Simvastatin 20 mg tablet Discontinued 20 mg PO EVERY MORNING November 11, 2017 1:00am May 04, 2018 8:10am Comment on above: Take 1 tablet by [facility] daily at bedtime. Slender X (3 sources) Start: 5 Slender X Active PO DAILY March 16, 2025 12:00am temazepam 15 mg oral capsule (16 sources) Benzodiazepine Start: 7 take 1 capsule by mouth at bedtime as needed Temazepam 15 mg capsule Active 15 mg PO AT BEDTIME as needed for Insomnia November 11, 2017 1:00am Comment on above: Take 15 mg by [...] Vitamin B Complex (B Complex-Vitamin B12) tablet (14 sources) Start: 03-16-2025 Vitamin B Complex (B Complex-Vitamin B12) tablet Active 1 {tbl} PO DAILY as needed March 16, 2025 7:54am Start: 05-07-2018 End: 03-16-2025 Vitamin B Complex (B Complex -Vitamin B12) tablet Discontinued 1 {tbl} PO DAILY May 07, 2018 12:00am March 16, 2025 7:55am Start: 05-07-2018 Vitamin B Comp magdalene (B Complex-Vitamin B12) tablet Active 1 {tbl} [...] 1 tablet by mouth daily. 01/17/2014 Active XCE LER8 (3 sources) Start: 03-16-2025 XCE LER8 Activ e PO DAILY March 16, 2025 12:00am Completed/Discontinued Medications Medication Drug Class(es) Dates Sig (Normalized) Sig (Original) acetaminophen 325 mg / HYDROcodone bitartrate 7.5 mg oral tablet (11 sources) Opioid Agonist Start: 01-26-2021 End: 07-18-2021 Hydrocodone-Acetami nophen 7.5-325 mg tablet Discontinued 1 {tbl} PO Q4H as needed for pain, moderate 42 7 0 January 26, 2021 July 18, 2021 4:40pm Closed trimalleolar fracture Start: 01-26-2021 End: 07-18-2021 take 1 tablet by mouth every four hours Hydrocodone-Acetaminophen Discontinued 1 TABLET PO Q4H 42 7 January 26, 2021 July 18, 2021 4:40pm [id number] 200 actuat albuterol 0.09 mg/actuat metered dose inhaler (11 sources) beta2-Adrenergic Agonist Start: 05-07-2018 End: 09-23-2023 [...] 2023 2:53pm amLODIPine 2.5 mg oral tablet (18 sources) Dihydropyridine Calcium Channel Traci Start: 09-23-2023 End: 01-08-2024 take 1 tablet by mouth once daily Amlodipine 2.5 mg tablet Discontinued 2.5 mg PO DAILY 07 03September 23, 2023 1:00am January 08, 2024 2:49pm Start: 05-07-2018 End: 06-16-2018 take 1 tablet by mouth once daily Amlodipine 5 mg tablet Discontinued 5 mg PO DAILY May 07, 2018 12:00am June 16, 2018 4:13pm azilsartan medoxomil 40 mg oral tablet (11 sources) Angiotensin 2 Receptor Traci Start: 06-24-2019 [...] mg / chlorthalidone 12.5 mg oral tablet (14 sources) Thiazide-like Diuretic, Angiotensin 2 Receptor Traci Start: 05-14-2017 End: 05-04-2018 Azilsartan Med-Chlorthalidone (Edarbyclor) 40-12.5 mg tablet Discontinued 1 {tbl} PO daily November 11, 2017 1:00am May 04, 2018 8:10am Lbeibym-Vbunignjg-Jmw lisa D2 500-50-100 mg-mg-unit tablet,chewable (18 sources) Start: 09-23-2023 End: 03-16-2025 Dbspvuz-Satffsdoa-Tqlepcd D2 500-50-100 mg-mg-unit tablet,chewable Discontinued 3 {tbl} PO DAILY as needed for supplement 0 September 23, 2023 2:53pm March 16, 2025 7:52am Start: 09-23-2023 Calcium-Magnes ium-Vitamin D2 500-50-100 mg-mg-unit tablet,chewable Active 3 {tbl} PO DAILY as needed for supplement September 23, 2023 2:53pm Start: 07-24-2022 End: 09-23-2023 Svdlezo-Hamsmndda-Pmibjjl D2 500-50-100 mg-mg-unit tablet,chewable Discontinued 3 {tbl} PO DAILY 0 July 24, 2022 4:53pm September 23, 2023 2:54pm supplement Start: 07-24-2022 End: 09-23-2023 Uxudofx-Qtnncdcwd-Cqvxrhq D2 500-50-100 mg-mg-unit tablet,chewable Discontinued 3 {tbl} PO DAILY July 24, 2022 4:53pm September 23, 2023 2:54pm Start: 05-07-2018 End: 07-24-2022 Csahexe-Aupdynmzm-Cxqyjwb D2 500-50-100 mg-mg-unit tablet,chewable Discontinued 1 {tbl} PO DAILY 0 May 07, 2018 12:00am July 24, 2022 4:55pm supplement Start: 05-07-2018 End: 07-24-2022 Laldfku-Rxznwevjx-Obqzdyv D2 500-50-100 mg-mg-unit tablet,chewable Discontinued 1 {tbl} PO DAILY May 07, 2018 12:00am July 24, 2022 4:55pm cetirizine hydrochloride 10 mg oral tablet (20 sources) Histamine-1 Receptor Antagonist Start: 06-10-2016 End: 07-24-2020 take 1 tablet by mouth once daily Cetirizine (Zyrtec) 10 mg tablet Discontinued 10 mg PO daily May 07, 2018 1:59pm July 24, 2020 5:15pm Comment on above: Take 1 tablet by [facility] once daily. clopidogrel 75 mg oral tablet (20 sources) P2Y12 Platelet Inhibitor Start: 06-03-2018 End: 06-25-2018 take 1 tablet by mouth once daily Clopidogrel 75 mg tablet Discontinued 75 mg PO DAILY 30 June 04, 2018 9:09am June 25, 2018 1:49pm DULoxetine 30 mg delayed release oral capsule (20 sources) Serotonin and Norepinephrine Reuptake Inhibitor Start: 06-10-2019 End: 03-16-2025 take 1 capsule by mouth every other day Duloxetine 30 mg capsule,delayed release(DR/EC) Discontinued 30 mg PO EVERY OTHER DAY 90 0 June 24, 2019 9:29am March 16, 2025 7:53am Start: 06-10-2019 End: 06-24-2019 Duloxetine 30 mg capsule,del ayed release(/EC) Discontinued PO 90 0 June 10, 2019 12:00am June 24, 2019 9:31am take 1 capsule by [facility] once daily DULoxetine (CYMBALTA) 30 mg capsule Take 30 mg by mouth once daily. Active Comment on above: Take 30 mg by mouth once daily. hydroCHLOROthiazide 25 mg oral tablet (20 sources) Thiazide Diuretic Start: 020 End: 024 take 1 tablet by mouth once daily Hydrochlorothiazide 25 mg tablet Discontinued 25 mg PO DAILY September 23, 2023 3:01pm January 08, 2024 2:49pm HTN Start: 06-16-2018 End: 06-10-2019 take 1 tablet by mouth once daily Hydrochlorothiazide 25 mg tablet Discontinued 25 mg PO DAILY June 16, 2018 12:00am June 10, 2019 9:04am Comment on above: Take 1 tablet by [facility] once daily. lubiprostone 0.024 mg oral capsule (20 sources) Chloride Channel Activator Start: 8 End: 9 take 1 capsule by mouth once daily Lubiprostone (Amitiza) 24 mcg capsule Discontinued 24 ug PO daily May 07, 2018 1:58pm June 24, 2019 9:30am Start: 05-04-2018 End: 05-07-2018 take 1 capsule by mouth every other day Lubiprostone (Amitiza) 24 mcg capsule Discontinued 24 ug PO .QOD May 04, 2018 12:00am May 07, 2018 2:03pm Start: 07-09-2017 take 1 capsule by [facility] twice daily AMITIZA 24 mcg capsule Take 24 mcg by mouth 2 (two) times a day. 07/09/2017 Active Start: 03-21-2017 take 1 capsule by [facility] twice daily at mealtime lubiprostone (AMITIZA) 24 mcg capsule Indications: Slow transit constipation Take 1 capsule by mouth twice daily with meals. 60 capsule 4 03/21/2017 Active Comment on above: Take 1 capsule by [facility] twice daily with meals. Magnesium (11 sources) Start: 06-24-2019 End: 12-20-2019 take 2 [...] 7:41am milnacipran hydrochloride 12.5 mg oral tablet (11 sources) Serotonin and Norepinephrine Reuptake Inhibitor Start: 06-10-2019 End: 06-24-2019 Milnacipran 12.5 mg tablet Discontinued PO 90 0 June 10, 2019 12:00am June 24, 2019 [...] % 1 Drop ( AK-DILATE, MARIA R-SYNEPHRINE) pioglitazone 15 mg oral tablet (6 sources) Peroxisome Proliferator Receptor alpha Agonist, Peroxisome Proliferator Receptor gamma Agonist, Thiazolidinedione Start: 01-08-2024 End: 03-16-2025 take 1 tablet by mouth once daily Pioglitazone (Actos) 15 mg tablet Discontinued 15 mg PO DAILY January 08, 2024 12:00am March 16, 2025 7:54am potassium chloride 8 meq extended release oral capsule (20 sources) Start: 06-24-2019 End: 03-16-2025 take 1 capsule by mouth once daily as needed Potassium Chloride 8 mEq capsule, extended release Discontinued 8 meq PO DAILY as needed September 23, 2023 2:53pm March 16, 2025 7:54am Start: 05-07-2018 End: 06-24-2019 Potassium Chloride 8 mEq cap onelia, extended release Discontinued 99 meq PO DAILY May 07, 2018 12:00am June 24, 2019 9:31am Start: 05-07-2018 End: 06-24-2019 take 99 mEq by mouth once daily Potassium Chloride Discontinued 99 MEQ PO DAILY May 07, 2018 12:00am June 24, 2019 9:31am proparacaine hydrochloride 5 mg/ml ophthalmic solution (3 sources) Local Anesthetic Start: 02-14-2025 End: 02-14-2025 proparacaine 0.5 % 1 drop (ALCAINE) Start: 02-14-2025 End: 02-14-2025 1 drop, BOTH EYES, ONCE, 1 d ose, On Fri02/14/25 at 0830, FOR THE EYE Start: 07-30-2022 End: 07-31-2022 proparacaine 0.5 % 1 Drop (A LCAINE) propranolol hydrochloride 60 mg oral tablet (20 sources) beta-Adrenergic Traci Start: 07-24-2020 End: 03-16-2025 Propranolol 60 mg tablet Discontinued 60 mg PO .PRN September 23, 2023 3:06pm March 16, 2025 7:55am Headache For STEVEN Start: 05-07-2018 End: 07-24-2020 take 1 tablet by mouth once daily as needed Propranolol 80 mg tablet Discontinued 80 mg PO daily as needed October 12, 2019 10:21am July 24, 2020 5:14pm Start: 11-11-2017 End: 05-07-2018 [...] times daily. raNITIdine 150 mg oral tablet (14 sources) Histamine-2 Receptor Antagonist Start: 8 End: [...] 7:42am Start: 06-10-2016 take 1 tablet by [facility] once daily ranitidine (ZANTAC) 150 MG tablet Take 150 mg by mouth daily. 0 06/10/2016 Active rivaroxaban 10 mg oral tablet (11 sources) Factor Xa Inhibitor Start: 01-26-2021 End: 07-18-2021 take 1 tablet by mouth once daily Rivaroxaban (Xarelto) 10 mg tablet Discontinued 10 mg PO DAILY 14 0 January 26, 2021 12:00am July 18, 2021 4:41pm Closed trimalleolar fracture sertraline 50 mg oral tablet (11 sources) Serotonin Reuptake Inhibitor Start: 05-04-2018 End: [...] (MYDR IACYL) ubidecarenone 100 mg oral capsule (11 sources) Start: 05-04-2018 End: 06-10-2019 Coenzyme Q10 (Coq-10) 100 mg capsule Discontinued 100 mg PO DAILY May 04, 2018 12:00am June 10, 2019 9:04am venlafaxine 37.5 mg oral tablet (20 sources) Serotonin and Norepinephrine Reuptake Inhibitor Start: [...] 8:10am Start: 10-16-2017 take 1 capsule by [facility] once daily venlafaxine ER (EFFEXOR XR) 37.5 mg 24 hr capsule Take 1 capsule by mouth once daily. 10/16/2017 Active Comment on above: Take 1 capsule by [facility] once daily. Problems Active Problems Problem Classification Problem Date Documented Da te Episodic/Chronic Anxiety disorders (2 sources) Mixed anxiety and depressive disorder; Translations: [Anxiety disorder, unspecified] Onset: 05-14-2017 05-14-2017 Chronic Blindness and vision defects (6 sources) Myopia, bilateral; Translations: [Regular astigmatism, bilateral] Onset: 02-14-2025 02-14-2025 Episodic Cardiac dysrhythmias (20 sources) Ectopic beats; Translations: [Other premature depolarization] Onset: 03-16-2025 Chronic Cataract (3 sources) Nuclear sclerotic cataract; Translations: [Age-related nuclear cataract, bilateral] Onset: 02-14-2025 Chronic Diabetes mellitus without complication (6 sources) Prediabetes; Translations: [Prediabetes] 01-08-2024 Episodic Disorders of lipid metabolism (18 sources) Pure hypercholesterolemia ; Translations: [Pure hypercholesterolemia , unspecified] Onset: 01-17-2014 Chronic Esophageal disorders (14 sources) Gastro-esophageal reflux disease without esophagitis; Translations: [Gastroesophageal reflux disease] Onset: 07-23-2018 07-23-2018 Chronic Essential hypertension (20 sources) Essential hypertension; Translations: [Essential (primary) hypertension] Onset: 01-17-2014 Chronic Fracture of lower limb (11 sources) Closed trimalleolar fracture; Translations: [Displaced trimalleolar fracture of unspecified lower leg, initial encounter for closed fracture] 01-24-2021 Episodic Headache; including migraine (13 sources) Migraine; Translations: [Migraine, unspecified, not intractable, without status migrainosus] Onset: 11-03-2017 11-03-2017 Chronic Heart valve disorders (20 sources) Heart murmur; Translations: [Cardiac murmur, unspecified] Onset: 03-16-2025 Episodic Inflammation; infection of eye (except that caused by tuberculosis or sexually transmitteddisease) (2 sources) Bilateral punctate keratitis of eyes; Translations: [Punctate keratitis, bilateral] Onset: 06-04-2017 06-04-2017 Chronic Menopausal disorders (12 sources) Postmenopausal bleeding; Translations: [Postmenopausal bleeding] Onset: 12-15-2024 12-08-2024 Chronic Comment on above: EMB and US pending. Nonspecific chest pain (20 sources) Other chest pain; Translations: [Other chest pain] Onset: 07-23-2018 07-23-2018 Episodic Nutritional deficiencies (2 sources) Vitamin D deficiency; Translations: [Vitamin D deficiency, unspecified] Onset: 02-07-2017 02-07-2017 Chronic Osteoarthritis (11 sources) Osteoarthritis; Translations: [Unspecified osteoarthritis, unspecified site] 12-20-2019 Chronic Other and unspecified benign neoplasm (5 sources) Personal history of colonic polyps; Translations: [Personal history of colonic polyps] Onset: 07-23-2018 Episodic Other and unspecified benign neoplasm (13 sources) History of polyp of colon; Translations: [Personal history of colonic polyps] Onset: 07-23-2018 07-23-2018 Episodic Other connective tissue disease (13 sources) Fibromyalgia; Translations: [Fibromyalgia] Onset: 01-17-2014 01-03-2015 Episodic Other eye disorders (1 source) Posterior [...] degeneration, bilateral] 02-14-2025 Chronic Other gastrointestinal disorders (13 sources) Irritable bowel syndrome; Translations: [Irritable bowel syndrome without diarrhea] Onset: 01-17-2014 01-03-2015 Chronic Other gastrointestinal disorders (2 sources) Constipation; Translations: [Constipation, unspecified] 02-07-2017 Episodic Other liver diseases (6 sources) Elevated liver enzymes level; Translations: [Abnormal levels of other serum enzymes] 01-08-2024 Episodic Other nervous system disorders (5 sources) Walking difficulty due to ankle and foot; Translations: [Difficulty in walking, not elsewhere classified] 01-24-2021 Chronic Other nervous system disorders (6 sources) Difficulty walking; Translations: [Difficulty in walking, not elsewhere classified] 01-24-2021 Chronic Other non-traumatic joint disorders (20 sources) Ankle pain; Translations: [Pain in joint, ankle and foot] 01-24-2021 Episodic Other non-traumatic joint disorders (20 sources) Joint pain in right hand; Translations: [Pain in joint, hand] Episodic Other nutritional; endocrine; and metabolic disorders (2 sources) Obesity; Translations: [Obesity, unspecified] Onset: 07-11-2015 07-11-2015 Chronic Other skin disorders (6 sources) Lichen sclerosus et atrophicus; Translations: [Lichen sclerosus et atrophicus] 01-08-2024 Chronic Residual codes; unclassified (13 sources) Obstructive sleep apnea syndrome; Translations: [Obstructive sleep apnea (adult) (pediatric)] Onset: 07-11-2015 07-11-2015 Chronic Transient cerebral ischemia (2 sources) Amaurosis fugax; Translations: [Amaurosis fugax] Onset: 11-03-2017 11-03-2017 Chronic Unclassified (1 source) Unknown / UNK(Unknown) Onset: 08-04-2018 Past or Other Problems Problem Classification Problem Date Documented Date Episodic/Chronic Abdominal pain (3 sources) Right lower quadrant pain; Translations: [Right lower quadrant pain] Onset: 01-17-2014 Resolved: 02-07-2017 09-06-2014 Episodic Esophageal disorders (3 sources) Esophagitis, unspecified; Translations: [Esophagitis] Onset: 07-23-2018 07-23-2018 Episodic Medical examination/evaluatio n (2 sources) Encounter for general adult medical examination without abnormal findings; Translations: [Encounter for general adult medical examination without abnormal findings] Onset: 09-09-2017 Episodic Other connective tissue disease (1 source) [...] pain; Translations: [Arthralgia of right hand] Episodic Other screening for suspected conditions (not mental disorders or infectious disease) (20 sources) Ultrasonography of breast abnormal; Translations: [Other abnormal and inconclusive findings on diagnostic imaging of breast] Onset: 01-20-2025 12-24-2019 Episodic Residual codes; unclassified (2 sources) Insomnia; Translations: [Insomnia, unspecified] Onset: 10-18-2014 01-03-2015 Episodic NEGATED: Highlighted row has not occurred!Residual codes; unclassified (5 sources) Disease Episodic Results Test Name Value Interpretation Reference Range Facility Foot min 3 Viewson 5 Foot min 3 Views [facility] Imaging Services [address] [place] [address] [id number] Foot min 3 Views MR#: [id number] Acct: [id number] Name: JOHANNA DOVE Rep #: [id number] : 1960 F 64 From: Yohannes Lu MD PCP: Dr. Margarita Meza, Status: DEP AMB Study: Foot min 3 Views Date of Exam: 05/17/25 Exam# [id number] Ordering Dr: Rod Wilson DPM PROCEDURE: FOOT MIN 3 VIEWS 05/17/2025 REASON FOR EXAM: POST OP TECHNIQUE: Procedure Code: RADFO Modality: DX Procedure: FOOT MIN 3 VIEWS Laterality: Right COMPARISON: March 23, 2024 FINDINGS: Bones: A proximally 2-3 mm of lateral displacement related to fracture of the head of the 2nd metatarsal. On the AP view subtle lucency is seen in the proximal metaphysis the may represent nondisplaced hairline fracture versus variation in the bone mineralization. Joints: Flattening of the articular surface of the 2nd MTP joint. Hallux valgus. Soft tissues: Soft tissue swelling about the forefoot. Other: No foreign body RAD/Foot min 3 Views IMPRESSION: Fracture of the 2nd metatarsal head. Variation in bone mineral versus hairline fracture proximal metaphysis of the proximal phalanx 2nd digit. Reading Location: [id number] CC: CAREN Wilson; Dr. Margarita Meza DO Climbing Guide: Signed Normal [facility] OPERATIVE PROCEDURESon 04-04 OPERATIVE PROCEDURES [facility] OPERATIVE REPORT NAME ACCOUNT SEX AGE ADMIT DISCHARGE PT MED. RECORD# NUMBER DATE DATE TYPE DERRELL [id number] F 64 03/21/25 2 JOHANNA Ashraf [id number] ROOM: [facility] DATE OF : 1960 DICTATING PHYSICIAN: Rod Wilson DATE OF SURGERY: March 21, 2025 SURGEON: Rod Wilson DPM BRAND ACTIVATION MANAGER: None. ANESTHESIOLOGIST: Dr. Shaka Dmuont MD ANESTHETIC: General with local of 7 mL of 1% lidocaine plain to the right foot and 8 mL of 1% lidocaine plain to the left foot. PREOPERATIVE DIAGNOSES: 1. Painful right second metatarsal. 2. Painful hardware left hallux. 3. Painful chronic ingrown toenail left hallux lateral border. POSTOPERATIVE DIAGNOSES: 1. Painful right second metatarsal. 2. Painful hardware left hallux. 3. Painful chronic ingrown toenail left hallux lateral border. OPERATION PERFORMED: 1. Decompression osteotomy right second metatarsal. 2. Removal retained hardware left hallux. 3. Partial permanent nail avulsion left hallux lateral border. COMPLICATIONS: None. ESTIMATED BLOOD LOSS: Minimal. HEMOSTASIS: Pneumatic ankle tourniquet bilaterally set at 250 mmHg and electrocautery. DESCRIPTION OF OPERATION: Under mild sedation, the patient was brought into the operating room and placed on the operating table in the supine position. Pneumatic ankle tourniquets were placed about the patient's ankles, and following sedation the Page 1 of 3 JOHANNA DOVE Operative Report JOHANNA DOVE : 1960 right foot was elevated to exsanguinate the limb and the pneumatic ankle tourniquet was inflated to 250 mmHg. Attention was directed to the right second metatarsophalangeal joint, where approximately a 4 cm linear longitudinal incision was made medial and parallel to the extensor digitorum longus tendon. The incision was deepened through sharp and blunt dissection down to the level of the second metatarsophalangeal joint. At that point, a linear longitudinal capsulotomy was performed and the periosteal and capsular structures were dissected free from the osseous attachments and retracted. At this point, the second metatarsal head was elevated and noted to have no signs of cartilage disruption, and utilizing a sagittal saw orientated from a distal dorsal to proximal plantar orientation, an osteotomy was performed. Immediately, the second metatarsal slightly retracted proximally and sat into a more correct anatomical position lined up with the metatarsal. It was stable, and preoperatively we did decide to use no hardware. Then, the area was flushed with copious amounts of normal sterile saline, and the deep tissues were reapproximated and coapted utilizing 3-0 Vicryl, subcutaneous tissue was reapproximated and coapted utilizing 4-0 Vicryl, and skin was reapproximated and coapted utilizing 4-0 Prolene. Next, a sterile compressive dressing consisting of 4x4's, Xeroform, Nayla, and Kerlix was applied. The pneumatic ankle tourniquet was deflated, and a prompted hyperemic response was noted to all digits of the right foot. An Vladimir wrap was then applied. The patient tolerated the procedure and anesthesia well to the right foot, and attention was then directed to the left which was elevated to exsanguinate the limb, and the pneumatic ankle tourniquet was inflated to 250 mmHg. Attention was directed to the previous incision where an approximately 4 cm linear longitudinal incision was made medial and parallel to the extensor hallucis longus tendon. The incision was deepened through sharp and blunt dissection, and care was taken to retract all vital neurovascular structures. All superficial bleeding vessels were cauterized and ligated as necessary. Attention was then directed to the scar tissue on the periosteal structures, which were incised and bluntly retracted from the osseous attachments and the hardware was easily and immediately visible. Then, all of the screws were removed and the plate was removed as well as the interfragmentary screw. The patient was having pain with these, and we were not for sure which one was causing the pain. Intraoperatively, we decided it would be best to remove all of the hardware instead of just the possibly painful screws secondary to the possibility of infection. Once the hardware was removed, the wound was flushed with copious amounts of normal sterile saline. Then, the deep tissues and subcutaneous tissues were reapproximated and coapted utilizing 3-0 and 4-0 Vicryl respectively. Skin was reapproximated and coapted utilizing 4-0 Prolene. Attention was then directed distally to the lateral border of the hallux, and the area was Page 2 of 3 JOHANNA DOVE Operative Report JOHANNA DOVE : 1960 dissected free from soft tissue attachments. Utilizing an Latvian anvil, the lateral nail border was removed. There was a significant amount of cuticle and callus that (more content not included)... Normal [facility] FOOT 2 VIEW RTon 03-21-2025 FOOT 2 VIEW RT [place] [address] Patient: JOHANNA DOVE. Phone#: : 1960 Age: 64 Gender: F Pt. Type: Out Account: [id number] Location: [facility] Ordering: ROD WILSON Exam Date: 03/21/2025/12:07 Family Phys: MARGARITA AMMONYS Charge Code: 556530 Physician: [place] Order #: [id number] Dose#: PROCEDURE: X-RAY FOOT RT 2 VIEWS COMPARISON: None. INDICATIONS: Post Operative. FINDINGS: BONES: Hallux valgus deformity is present. SOFT TISSUES: Soft tissue air is present dorsal to the head of the 2nd metatarsal consistent with recent surgery. EFFUSION: None visible. OTHER: Negative. CONCLUSION: 1. There is no evidence of acute bone abnormality. 2. Postsurgical soft tissue air. Dictated by: Meredith Mcwilliams MD on 03/21/2025 at 12:21 Approved by: Meredith Mcwilliams MD on 03/21/2025 at 12:23 Normal [facility] Cardiology Visit Reporton Cardiology Visit Report [facility] [address] [place] [address] OFFICE VISIT Date of Service: 03/16/25 MR#: [id number] Acct: [id number] Name: JOHANNA DOVEN Rep #: [id number] : 1960 Provider: Dr. Leighton brower MD Age/Sex: 64/F Location: [facility] [place] Status: Signed HPI HPI History of Present Illness Details: Patient is a very pleasant 64-year-old white female who comes in today for monitoring of her cardiovascular status and preop clearance. Patient is scheduled next Friday for a surgical procedure on her foot due to a hammertoe. This is to be done under general anesthesia. Patient reports she has been doing fairly well in her home environment she is able to go up and down a flight of stairs without restrictions. She denies any significant change in her exercise tolerance. She walks about 10,000 steps a day in her job without any significant restrictions. The patient does have a significant family history of coronary disease she was personally cathed in 2017 and had normal coronary arteries. The patient carries a history of activity and wound remotely she took Sudafed and had some short runs of paroxysmal atrial fibrillation. She has not had any significant ectopy recently she did have a Holter monitor done September 2019 this was primarily normal sinus rhythm she had some premature atrial complexes no evidence of atrial fibrillation she had frequent PVCs. She had a uncomfortable jab in her left upper chest which she has had intermittently for some time and during that monitor it correlated with some of the ectopy. This ectopy was felt to be benign. The patient's last echocardiogram August 2022 showed normal LV function EF of 60% the left atrium was mildly enlarged it was trivial mitral insufficiency. There was mild tricuspid insufficiency and mild focal aortic valve calcification. The right ventricular systolic pressure was normal at 21. ECG done in the office today shows normal sinus rhythm and is normal a copy was provided for the patient to take for her preanesthesia evaluation. 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 Required: No Accompanied by: Self Is patient in pain?: No Allergies No Known Allergies Allergy (Verified 03/16/25 07:51) Medications ???Medication ???Instructions ???Recorded ???Confirmed ???Type temazepam 15 mg capsule 15 mg PO QHS PRN Insomnia 11/11/17 03/16/25 History simvastatin 20 mg tablet 20 mg PO DAILY 05/25/18 03/16/25 H istory aspirin 81 mg tablet,delayed 81 mg PO DAILY health maintenance 06/03/18 03/16/25 History release omeprazole 20 mg capsule,delayed 20 mg PO DAILY PRN gerd 12/20/19 0 03/16/25 History release cetirizine 10 mg tablet (Zyrtec) 10 mg PO DAILY allergies 07/24/20 03/16/25 History melatonin 5 mg tablet 5 mg PO HS PRN 07/24/22 03/16/25 H istory losartan 100 1 tab PO DAILY 01/08/24 03/16/25 H istory mg-hydrochlorothiazide 25 mg tablet (Hyzaar) clobetasol 0.05 % topical ointment 1 applic topical .COMPLEX #15 gr ams 03/14/25 03/16/25 Rx Slender X PO DAILY 03/16/25 03/16/25 History XCE LER8 PO DAILY 03/16/25 03/16/25 History cholecalciferol (vitamin D3) 1,250 1,250 mcg PO QMONTH PRN 03/16/25 03/16/25 History mcg (50,000 unit) capsule propranolol 60 mg tablet 60 mg PO DAILY PRN Headache 03/16/25 History vitamin B complex (B 1 tab PO DAILY PRN 03/16/25 History Complex-Vitamin B12 tablet) Ejection fraction %: 60 Have you fallen [...] catheterization History of breast biopsy Hx of c (more content not included)... Normal [facility] Absolute lymphocyte countOrd ered By: Margarita Meza on 03-10-2025 Lymphocytes Auto (Unsp spec) [#/Vol] 2.35 10*3/uL 0.83-4.51 [facility] Absolute neutrophil countOrd ered By: Margarita Meza on 03-10-2025 Neutrophils (Bld) [#/Vol] 3.3 10*3/uL 2.0-7.7 [facility] Anion gap in Serum or Plasma Ordered By: Margarita Meza on 03-10-2025 Anion gap [Moles/Vol] 12 mmol/L 5-15 [facility] Automated lymphocyte count a s percentage of total leukocytesOrdered By: Margarita Meza on 03-10-2025 Lymphocytes/100 WBC Auto (Unsp spec) 36.7 % 19- [facility] BUN/creatinine ratioOrdered By: Margarita Meza on 03-10-2025 Urea nitrogen/Creatinine [Mass ratio] 15.8 mg/mg 10-20 [facility] Basophil percentageOrdered B y: Margarita Meza on 03-10-2025 Basophils/100 WBC (Bld) 0.6 % 0-1 [facility] Bilirubin, totalOrdered By: Margarita Meza on 03-10-2025 Bilirubin [Mass/Vol] 0.46 mg/dL 0.00-1.30 [facility] CBC W/Diff, Automatedon Absolute Lymph 2.35 X10 3/uL Normal 0.83-4.51 [facility] Comment on above: Order Comment: SEND ALL RESULTS TO Performed By: #### L 500.4050, L100.0100 #### [facility] [address] [place], [address] Absolute Neut 3.3 X10 3/uL Normal 2.0-7.7 [facility] Comment on above: Order Comment: SEND ALL RESULTS TO Performed By: #### L 500.4050, L100.0100 #### [facility] [address] [place], [address] Basophils/100 WBC (Bld) 0.6 % Normal 0-1 [facility] Comment on above: Order Comment: SEND ALL RESULTS TO Performed By: #### L 500.4050, L100.0100 #### [facility] [address] [place], [address] Eosinophils/100 WBC (Bld) 4.7 % Normal 0-5 [facility] Comment on above: Order Comment: SEND ALL RESULTS TO Performed By: #### L 500.4050, L100.0100 #### [facility] [address] [place], [address] Erythrocyte distribution width (RBC) [Ratio] 13.2 % Normal 11.6-14.6 [facility] Comment on above: Order Comment: SEND ALL RESULTS TO Performed By: #### L 500.4050, L100.0100 #### [facility] [address] [place], [address] Hematocrit (Bld) [Volume fraction] 41.5 % Normal 37-47 [facility] Comment on above: Order Comment: SEND ALL RESULTS TO Performed By: #### L 500.4050, L100.0100 #### [facility] [address] [place], [address] Hemoglobin (Bld) [Mass/Vol] 14.0 g/dL Normal 12.0-15.0 [facility] Comment on above: Order Comment: SEND ALL RESULTS TO Performed By: #### L 500.4050, L100.0100 #### [facility] [address] [place], [address] IG% 0.300 Normal 0.0-0.9 [facility] Comment on above: Order Comment: SEND ALL RESULTS TO Result Comment: IG% - Immature Granulocytes (promyelocytes, myelocytes and metamyelocytes) > 1% indicates that a LEFT SHIFT is Present. Performed By: #### L 500.4050, L100.0100 #### [facility] [address] [place], [address] Lymphocytes/100 WBC (Bld) 36.7 % Normal 19-41 [facility] Comment on above: Order Comment: SEND ALL RESULTS TO Performed By: #### L 500.4050, L100.0100 #### [facility] [address] [place], [address] MCH (RBC) [Entitic mass] 31.0 pg Normal 27.0-32.0 [facility] Comment on above: Order Comment: SEND ALL RESULTS TO Performed By: #### L 500.4050, L100.0100 #### [facility] [address] [place], [address] MCHC (RBC) [Mass/Vol] 33.7 g/dL Normal 32-36 [facility] Comment on above: Order Comment: SEND ALL RESULTS TO Performed By: #### L 500.4050, L100.0100 #### [facility] [address] [place], [address] MCV (RBC) [Entitic vol] 91.8 fL Normal 81-99 [facility] Comment on above: Order Comment: SEND ALL RESULTS TO Performed By: #### L 500.4050, L100.0100 #### [facility] [address] [place], [address] Monocytes/100 WBC (Bld) 6.3 % Normal 0-10 [facility] Comment on above: Order Comment: SEND ALL RESULTS TO Performed By: #### L 500.4050, L100.0100 #### [facility] [address] [place], [address] Neutrophils/100 WBC (Bld) 51.4 % Normal 47-70 [facility] Comment on above: Order Comment: SEND ALL RESULTS TO Performed By: #### L 500.4050, L100.0100 #### [facility] [address] [place], [address] Nucleated RBC (Bld) [#/Vol] 0 10*3/uL Normal 0-5 [facility] Comment on above: Order Comment: SEND ALL RESULTS TO Performed By: #### L 500.4050, L100.0100 #### [facility] [address] [place], [address] Platelet mean volume (Bld) [Entitic vol] 11.5 fL Normal 6.2-12.0 [facility] Comment on above: Order Comment: SEND ALL RESULTS TO Performed By: #### L 500.4050, L100.0100 #### [facility] [address] [place], [address] Platelets (Bld) [#/Vol] 286 10*3/uL Normal 150-450 [facility] Comment on above: Order Comment: SEND ALL RESULTS TO Performed By: #### L 500.4050, L100.0100 #### [facility] [address] [place], [address] RBC (Bld) [#/Vol] 4.52 10*6/uL Normal 4.2-5.4 [facility] Comment on above: Order Comment: SEND ALL RESULTS TO Performed By: #### L 500.4050, L100.0100 #### [facility] [address] [place], [address] RDW SD 44.1 fl High 35.1-43.9 [facility] Comment on above: Order Comment: SEND ALL RESULTS TO Performed By: #### L 500.4050, L100.0100 #### [facility] [address] [place], [address] WBC (Bld) [#/Vol] 6.4 10*3/uL Normal 4.4-11.0 [facility] Comment on above: Order Comment: SEND ALL RESULTS TO Performed By: #### L 500.4050, L100.0100 #### [facility] [address] [place], [address] Carbon dioxide, total [Moles /volume] in Central venous bloodOrdered By: Margarita Meza on 03-10-2025 CO2 [Moles/Vol] 25.5 mmol/L 21.0-32.0 [facility] Chloride assayOrdered By: Coral Meza on 03-10-2025 Chloride [Moles/Vol] 101 mmol/L 98-108 [facility] Comprehensive Metabolic Prof ilon 03-10-2025 Albumin [Mass/Vol] 4.5 g/dL Normal 3.4-4.8 [facility] Comment on above: Order Comment: SEND ALL RESULTS TO Performed By: #### L 500.4050, L100.0100 #### [facility] [address] [place], [address] Albumin/Globulin [Mass ratio] 1.3 {ratio} Normal 0.9-2.4 [facility] Comment on above: Order Comment: SEND ALL RESULTS TO Performed By: #### L 500.4050, L100.0100 #### [facility] [address] [place], [address] ALK PHOS 85 U/L Normal 35-104 [facility] Comment on above: Order Comment: SEND ALL RESULTS TO Performed By: #### L 500.4050, L100.0100 #### [facility] [address] [place], [address] ALT [Catalytic activity/Vol] 34 U/L Normal <=34 [facility] Comment on above: Order Comment: SEND ALL RESULTS TO Performed By: #### L 500.4050, L100.0100 #### [facility] [address] [place], [address] AST [Catalytic activity/Vol] 28 U/L Normal <=31 [facility] Comment on above: Order Comment: SEND ALL RESULTS TO Performed By: #### L 500.4050, L100.0100 #### [facility] [address] [place], [address] Bilirubin [Mass/Vol] 0.46 mg/dL Normal 0.00-1.30 [facility] Comment on above: Order Comment: SEND ALL RESULTS TO Performed By: #### L 500.4050, L100.0100 #### [facility] [address] [place], [address] BUN/CRE 15.8 RATIO Normal 10-20 [facility] Comment on above: Order Comment: SEND ALL RESULTS TO Performed By: #### L 500.4050, L100.0100 #### [facility] [address] [place], [address] Calcium [Mass/Vol] 9.8 mg/dL Normal 7.6-11.0 [facility] Comment on above: Order Comment: SEND ALL RESULTS TO Performed By: #### L 500.4050, L100.0100 #### [facility] [address] [place], [address] Chloride [Moles/Vol] 101 mmol/L Normal 98-108 [facility] Comment on above: Order Comment: SEND ALL RESULTS TO Performed By: #### L 500.4050, L100.0100 #### [facility] [address] [place], [address] CO2 [Moles/Vol] 25.5 mmol/L Normal 21.0-32.0 [facility] Comment on above: Order Comment: SEND ALL RESULTS TO Performed By: #### L 500.4050, L100.0100 #### [facility] [address] [place], [address] Creatinine [Mass/Vol] 0.83 mg/dL Normal 0.70-1.20 [facility] Comment on above: Order Comment: SEND ALL RESULTS TO Performed By: #### L 500.4050, L100.0100 #### [facility] [address] [place], [address] GAP 12 Normal 5-15 [facility] Comment on above: Order Comment: SEND ALL RESULTS TO Performed By: #### L 500.4050, L100.0100 #### [facility] [address] [place], [address] GFR/1.73 sq M.predicted among non-blacks MDRD (S/P/Bld) [Vol rate/Area] 79 mL/min/{1.73_m2} Normal >60 [facility] Comment on above: Order Comment: SEND ALL RESULTS TO Result Comment: mL/m in/1.73m2 CKD-EPI Creatinine Equation (2020) Performed By: #### L 500.4050, L100.0100 #### [facility] [address] [place], [address] Globulin (S) [Mass/Vol] 3.5 g/dL Normal 2.2-4.2 [facility] Comment on above: Order Comment: SEND ALL RESULTS TO Performed By: #### L 500.4050, L100.0100 #### [facility] [address] [place], [address] Glucose [Mass/Vol] 87 mg/dL Normal 70-99 [facility] Comment on above: Order Comment: SEND ALL RESULTS TO Performed By: #### L 500.4050, L100.0100 #### [facility] [address] [place], [address] Potassium [Moles/Vol] 4.0 mmol/L Normal 3.3-5.1 [facility] Comment on above: Order Comment: SEND ALL RESULTS TO Performed By: #### L 500.4050, L100.0100 #### [facility] [address] [place], [address] Sodium [Moles/Vol] 138 mmol/L Normal 133-145 [facility] Comment on above: Order Comment: SEND ALL RESULTS TO Performed By: #### L 500.4050, L100.0100 #### [facility] [address] [place], [address] T PROT 8.0 g/dL Normal 5.9-8.4 [facility] Comment on above: Order Comment: SEND ALL RESULTS TO Performed By: #### L 500.4050, L100.0100 #### [facility] [address] [place], [address] Urea nitrogen [Mass/Vol] 13 mg/dL Normal 4-19 [facility] Comment on above: Order Comment: SEND ALL RESULTS TO Performed By: #### L 500.4050, L100.0100 #### [facility] [address] [place], [address] Eosinophil percentageOrdered By: Margarita Meza on 03-10-2025 Eosinophils/100 WBC (Bld) 4.7 % 0-5 [facility] Erythrocyte distribution wid th ratioOrdered By: Margarita Meza on 03-10-2025 Erythrocyte distribution width (RBC) [Ratio] 13.2 % 11.6-14.6 [facility] Erythrocyte distribution wid th standard deviationOrdered By: Margarita Meza on 03-10-2025 Erythrocyte distribution width (RBC) [Ratio] 44.1 fl High 35.1-43.9 [facility] Glomerular filtration rate ( GFR) estimation/1.73 sq m using serum, plasma, or whole bOrdered By: Margarita Meza on 03-10-2025 GFR/1.73 sq M.predicted among non-blacks MDRD (S/P/Bld) [Vol rate/Area] 79 mL/min/{1.73_m2} >60 [facility] Comment on above: mL/min/1.73m2 CKD-EP I Creatinine Equation (2020) Hematocrit Auto (Bld) [Volum e fraction]Ordered By: Margarita Meza on 03-10-2025 Hematocrit (Bld) [Volume fraction] 41.5 % 37-47 [facility] Hemoglobin measurementOrdere d By: Margarita Meza on 03-10-2025 Hemoglobin (Bld) [Mass/Vol] 14.0 g/dL 12.0-15.0 [facility] Immature granulocytes/100 WB C Auto (Bld)Ordered By: Margarita Meza on 03-10-2025 Immature granulocytes/100 WBC (Bld) 0.300 % 0.0-0.9 [facility] Comment on above: IG% - Immature Granu locytes (promyelocytes, myelocytes and metamyelocytes) > 1% indicates that a LEFT SHIFT is Present. Laboratory - Chemistry and C hemistry - challengeOrdered By: Margarita Meza on 03-10-2025 AST [Catalytic activity/Vol] 28 U/L <32 [facility] MCV (mean corpuscular volume ) determinationOrdered By: Margarita Meza on 03-10-2025 MCV (RBC) [Entitic vol] 91.8 fL 81-99 [facility] Mean corpuscular hemoglobin (MCH) determinationOrdered By: Margarita Meza on 03-10-2025 MCH (RBC) [Entitic mass] 31.0 pg 27.0-32.0 [facility] Mean corpuscular hemoglobin concentration (MCHC) determinationOrdered By: Margarita Meza on 03-10-2025 MCHC (RBC) [Mass/Vol] 33.7 g/dL 32-36 [facility] Mean platelet volume determi nationOrdered By: Margarita Meza on 03-10-2025 Platelet mean volume (Bld) [Entitic vol] 11.5 fL 6.2-12.0 [facility] Monocyte percentageOrdered B y: Margarita Meza on 03-10-2025 Monocytes/100 WBC (Bld) 6.3 % 0-10 [facility] Neutrophil percentageOrdered By: Margarita Meza on 03-10-2025 Neutrophils/100 WBC (Bld) 51.4 % 47-70 [facility] Nucleated red blood cell per centageOrdered By: Margarita Meza on 03-10-2025 Nucleated RBC/100 WBC (Bld) [Ratio] 0 % 0-5 [facility] Platelet countOrdered By: Coral Meza on 03-10-2025 Platelets (Bld) [#/Vol] 286 10*3/uL 150-450 [facility] Potassium measurement (mass/ volume)Ordered By: Margarita Meza on 03-10-2025 Potassium (Unsp spec) [Mass/Vol] 4.0 mmol/L 3.3-5.1 [facility] RBC Auto (Bld) [#/Vol]Ordere d By: Margarita Meza on 03-10-2025 RBC (Bld) [#/Vol] 4.52 10*6/uL 4.2-5.4 [facility] Serum creatinine measurement (mass/volume)Ordered By: Margarita Meza on 03-10-2025 Creatinine [Mass/Vol] 0.83 mg/dL 0.70-1.20 [facility] Serum globulin measurementOr dered By: Margarita Meza on 03-10-2025 Globulin (S) [Mass/Vol] 3.5 g/dL 2.2-4.2 [facility] Serum glucose measurement (m ass/volume)Ordered By: Margarita Meza on 03-10-2025 Glucose [Mass/Vol] 87 mg/dL 70-99 [facility] Serum or plasma alanine lisa otransferase (ALT) measurementOrdered By: Margarita Meza on 03-10-2025 ALT [Catalytic activity/Vol] 34 U/L <35 [facility] Serum or plasma albumin michele urement (mass/volume)Ordered By: Margarita Meza on 03-10-2025 Albumin [Mass/Vol] 4.5 g/dL 3.4-4.8 [facility] Serum or plasma albumin/glob ulin mass ratioOrdered By: Margarita Meza on 03-10-2025 Albumin/Globulin [Mass ratio] 1.3 {ratio} 0.9-2.4 [facility] Serum or plasma alkaline capo sphatase measurementOrdered By: Margarita Meza on 03-10-2025 ALP [Catalytic activity/Vol] 85 U/L 35-104 [facility] Serum or plasma calcium michele urement (mass/volume)Ordered By: Margarita Meza on 03-10-2025 Calcium [Mass/Vol] 9.8 mg/dL 7.6-11.0 [facility] Serum or plasma urea nitroge n measurement (mass/volume)Ordered By: Margarita Meza on 03-10-2025 Urea nitrogen [Mass/Vol] 13 mg/dL 4-19 [facility] Sodium levelOrdered By: Margarita Meza on 03-10-2025 Sodium [Moles/Vol] 138 mmol/L 133-145 [facility] Total proteinOrdered By: Katty Meza on 03-10-2025 Protein [Mass/Vol] 8.0 g/dL 5.9-8.4 [facility] White blood cell (WBC) count Ordered By: Margarita Meza on 03-10-2025 WBC (Bld) [#/Vol] 6.4 10*3/uL 4.4-11.0 [facility] Breast imaging reportOrdered By: Toby Jasso on 01-18-2025 Study report [facility] Imaging Services [address] [place], [place] [address] SCRN MAMM (CAD)W/CRISTIAN BILAT MR#: [id number] Acct: [id number] Name: JOHANNA DOVE Rep #: [id number] : 1960 F 64 From: Paolo Jasso MD PCP: Dr. Margarita Meza, Status: REG CLI Study:SCRN MAMM (CAD)W/CRISTIAN BILAT Date of Exa m: 01/17/25 Exam# [id number] Ordering Dr: Mell Chávez DO EXAM: SCRN [...] be mailed to the patient. Reading Location: [id number] CC: Dr. Mell Roman DO; Dr. Margarita Meza DO ~ Climbing Guide: Signed [facility] SCRN MAMM (CAD)W/CRISTIAN BILATo n 01-17-2025 SCRN MAMM (CAD)W/CRISTIAN BILAT [facility] Imaging Services [address] [place] [id number] SCRN MAMM (CAD)W/CRISTIAN BILAT MR#: [id number] Acct: [id number] Name: JOHANNA DOVE Rep #: [id number] : 1960 F 64 From: Toby sorto MD PCP: Dr. Margarita Meza DO Status: [facility] Study: SCRN MAMM (CAD)W/CRISTIAN BILAT Date of Exam: 01/06 11/02 Exam# [id number] Ordering Dr: Mell Roman DO EXAM: SCRN [...] be mailed to the patient. Reading Location: [id number] CC: Dr. Mell Roman DO; Dr. Margarita Meza DO Climbing Guide: Signed Normal [facility] Abdomen Completeon Abdomen Complete [facility] Imaging Services [address] [place] [address] Abdomen Complete MR#: [id number] Acct: [id number] Name: JOHANNA DOVE Rep #: [id number] : 1960 F 64 From: Elan Mason MD PCP: Dr. Margarita Meza DO Status: REG CLI Study: Abdomen Complete Date of Exam: 12/21/24 Exam# [id number] Ordering Dr: Margarita Meza DO ADDENDUM by Dr. Toby Jasso MD on 12/21/24 at 1108 No addendum needed. Reading Location: [facility]-IR-1 12/21/24 1108 Date cc: Dr. Margarita [...] 3. Additional description as above. Reading Location: [id number] CC: Dr. Margarita Meza DO Climbing Guide: Signed Normal [facility] Absolute lymphocyte countOrd ered By: Margarita Meza on 12-21-2024 Lymphocytes Auto (Unsp spec) [#/Vol] 2.48 10*3/uL 0.83-4.51 [facility] Absolute neutrophil countOrd ered By: Margarita Meza on 12-21-2024 Neutrophils (Bld) [#/Vol] 2.8 10*3/uL 2.0-7.7 [facility] Anion gap in Serum or Plasma Ordered By: Margarita Meza on 12-21-2024 Anion gap [Moles/Vol] 13 mmol/L 5-15 [facility] Automated lymphocyte count a s percentage of total leukocytesOrdered By: Margarita Meza on 12-21-2024 Lymphocytes/100 WBC Auto (Unsp spec) 42.2 % High 19-41 [facility] BUN/creatinine ratioOrdered By: Margarita Meza on 12-21-2024 Urea nitrogen/Creatinine [Mass ratio] 20.8 mg/mg High 10-20 [facility] Basophil percentageOrdered B y: Margarita Meza on 12-21-2024 Basophils/100 WBC (Bld) 0.7 % 0-1 [facility] Bilirubin, totalOrdered By: Margarita Meza on 12-21-2024 Bilirubin [Mass/Vol] 0.41 mg/dL 0.00-1.30 [facility] CBC W/Diff, Automatedon 12-07-2024 Absolute Lymph 2.48 X10 3/uL Normal 0.83-4.51 [facility] Comment on above: Performed By: #### L 501.36683, L500.4050, L506.1001, L501.9985, L500.4100, L501.9520, L506.0400, L100.0100 #### [facility] [address] [place], [address] Absolute Neut 2.8 X10 3/uL Normal 2.0-7.7 [facility] Comment on above: Performed By: #### L 501.38101, L500.4050, L506.1001, L501.9985, L500.4100, L501.9520, L506.0400, L100.0100 #### [facility] [address] [place], [address] Basophils/100 WBC (Bld) 0.7 % Normal 0-1 [facility] Comment on above: Performed By: #### L 501.00177, L500.4050, L506.1001, L501.9985, L500.4100, L501.9520, L506.0400, L100.0100 #### [facility] [address] [place], [address] Eosinophils/100 WBC (Bld) 3.7 % Normal 0-5 [facility] Comment on above: Performed By: #### L 501.39413, L500.4050, L506.1001, L501.9985, L500.4100, L501.9520, L506.0400, L100.0100 #### [facility] [address] [place], [address] Erythrocyte distribution width (RBC) [Ratio] 13.1 % Normal 11.6-14.6 [facility] Comment on above: Performed By: #### L 501.79719, L500.4050, L506.1001, L501.9985, L500.4100, L501.9520, L506.0400, L100.0100 #### [facility] [address] [place], [address] Hematocrit (Bld) [Volume fraction] 39.5 % Normal 37-47 [facility] Comment on above: Performed By: #### L 501.90952, L500.4050, L506.1001, L501.9985, L500.4100, L501.9520, L506.0400, L100.0100 #### [facility] [address] [place], [address] Hemoglobin (Bld) [Mass/Vol] 13.3 g/dL Normal 12.0-15.0 [facility] Comment on above: Performed By: #### L 501.17982, L500.4050, L506.1001, L501.9985, L500.4100, L501.9520, L506.0400, L100.0100 #### [facility] [address] [place], [address] IG% 0.300 Normal 0.0-0.9 [facility] Comment on above: Result Comment: IG% - Immature Granulocytes (promyelocytes, myelocytes and metamyelocytes) > 1% indicates that a LEFT SHIFT is Present. Performed By: #### L 501.06052, L500.4050, L506.1001, L501.9985, L500.4100, L501.9520, L506.0400, L100.0100 #### [facility] [address] [place], [address] Lymphocytes/100 WBC (Bld) 42.2 % High 19-41 [facility] Comment on above: Performed By: #### L 501.12269, L500.4050, L506.1001, L501.9985, L500.4100, L501.9520, L506.0400, L100.0100 #### [facility] [address] [place] [place], [address] MCH (RBC) [Entitic mass] 30.9 pg Normal 27.0-32.0 [facility] Comment on above: Performed By: #### L 501.17856, L500.4050, L506.1001, L501.9985, L500.4100, L501.9520, L506.0400, L100.0100 #### [facility] [address] [place], [address] MCHC (RBC) [Mass/Vol] 33.7 g/dL Normal 32-36 [facility] Comment on above: Performed By: #### L 501.43775, L500.4050, L506.1001, L501.9985, L500.4100, L501.9520, L506.0400, L100.0100 #### [facility] [address] [place], [address] MCV (RBC) [Entitic vol] 91.9 fL Normal 81-99 [facility] Comment on above: Performed By: #### L 501.32174, L500.4050, L506.1001, L501.9985, L500.4100, L501.9520, L506.0400, L100.0100 #### [facility] [address] [place], [address] Monocytes/100 WBC (Bld) 4.6 % Normal 0-10 [facility] Comment on above: Performed By: #### L 501.43773, L500.4050, L506.1001, L501.9985, L500.4100, L501.9520, L506.0400, L100.0100 #### [facility] [address] [place], [address] Neutrophils/100 WBC (Bld) 48.5 % Normal 47-70 [facility] Comment on above: Performed By: #### L 501.72978, L500.4050, L506.1001, L501.9985, L500.4100, L501.9520, L506.0400, L100.0100 #### [facility] [address] [place], [address] Nucleated RBC (Bld) [#/Vol] 0 10*3/uL Normal 0-5 [facility] Comment on above: Performed By: #### L 501.33872, L500.4050, L506.1001, L501.9985, L500.4100, L501.9520, L506.0400, L100.0100 #### [facility] [address] [place], [address] Platelet mean volume (Bld) [Entitic vol] 11.0 fL Normal 6.2-12.0 [facility] Comment on above: Performed By: #### L 501.95185, L500.4050, L506.1001, L501.9985, L500.4100, L501.9520, L506.0400, L100.0100 #### [facility] [address] [place], [address] Platelets (Bld) [#/Vol] 277 10*3/uL Normal 150-450 [facility] Comment on above: Performed By: #### L 501.24554, L500.4050, L506.1001, L501.9985, L500.4100, L501.9520, L506.0400, L100.0100 #### [facility] [address] [place], [address] RBC (Bld) [#/Vol] 4.30 10*6/uL Normal 4.2-5.4 [facility] Comment on above: Performed By: #### L 501.97898, L500.4050, L506.1001, L501.9985, L500.4100, L501.9520, L506.0400, L100.0100 #### [facility] [address] [place], [address] RDW SD 44.3 fl High 35.1-43.9 [facility] Comment on above: Performed By: #### L 501.67109, L500.4050, L506.1001, L501.9985, L500.4100, L501.9520, L506.0400, L100.0100 #### [facility] [address] [place], [address] WBC (Bld) [#/Vol] 5.9 10*3/uL Normal 4.4-11.0 [facility] Comment on above: Performed By: #### L 501.75938, L500.4050, L506.1001, L501.9985, L500.4100, L501.9520, L506.0400, L100.0100 #### [facility] [address] [place], [address] Calculated very low density lipoprotein (VLDL) cholesterol measurementOrdered By: Margarita Meza on 12-21-2024 Calculated very low density lipoprotein (VLDL) cholesterol measurement 15 mg/dL - [facility] VLDL Cholesterol 15 mg/dL - [facility] Carbon dioxide, total [Moles /volume] in Central venous bloodOrdered By: Margartia Meza on 12-21-2024 CO2 [Moles/Vol] 24.8 mmol/L 21.0-32.0 [facility] Chloride assayOrdered By: Coral Meza on 12-21-2024 Chloride [Moles/Vol] 103 mmol/L 98-108 [facility] Comprehensive Metabolic Prof ilon 12-21-2024 Albumin [Mass/Vol] 4.2 g/dL Normal 3.4-4.8 [facility] Comment on above: Order Comment: CBCD Performed By: #### L 501.67224, L500.4050, L506.1001, L501.9985, L500.4100, L501.9520, L506.0400, L100.0100 ####[facility] [address] [place], [place], [phone] Albumin/Globulin [Mass ratio] 1.4 {ratio} Normal 0.9-2.4 [facility] Comment on above: Order Comment: CBCD Performed By: #### L 501.56705, L500.4050, L506.1001, L501.9985, L500.4100, L501.9520, L506.0400, L100.0100 ####[facility] [address] [place], [place], [phone] PHOS 77 U/L Normal 35-104 [facility] Comment on above: Order Comment: CBCD Performed By: #### L 501.69770, L500.4050, L506.1001, L501.9985, L500.4100, L501.9520, L506.0400, L100.0100 ####[facility] [address] [place], [place], [phone] ALT [Catalytic activity/Vol] 25 U/L Normal <=34 [facility] Comment on above: Order Comment: CBCD Performed By: #### L 501.85960, L500.4050, L506.1001, L501.9985, L500.4100, L501.9520, L506.0400, L100.0100 ####[facility] [address] [place], [place], [phone] AST [Catalytic activity/Vol] 24 U/L Normal <=31 [facility] Comment on above: Order Comment: CBCD Performed By: #### L 501.39049, L500.4050, L506.1001, L501.9985, L500.4100, L501.9520, L506.0400, L100.0100 ####[facility] [address], [address] Bilirubin [Mass/Vol] 0.41 mg/dL Normal 0.00-1.30 [facility] Comment on above: Order Comment: CBCD Performed By: #### L 501.28325, L500.4050, L506.1001, L501.9985, L500.4100, L501.9520, L506.0400, L100.0100 ####[facility] [address] [place], [address] BUN/CRE 20.8 RATIO High 10-20 [facility] Comment on above: Order Comment: CBCD Performed By: #### L 501.83825, L500.4050, L506.1001, L501.9985, L500.4100, L501.9520, L506.0400, L100.0100 ####[facility] [address] [place], [address] Calcium [Mass/Vol] 9.4 mg/dL Normal 7.6-11.0 [facility] Comment on above: Order Comment: CBCD Performed By: #### L 501.52075, L500.4050, L506.1001, L501.9985, L500.4100, L501.9520, L506.0400, L100.0100 ####[facility] [address] [place], [address] Chloride [Moles/Vol] 103 mmol/L Normal 98-108 [facility] Comment on above: Order Comment: CBCD Performed By: #### L 501.39785, L500.4050, L506.1001, L501.9985, L500.4100, L501.9520, L506.0400, L100.0100 ####[facility] [address] [place], [place], [phone] CO2 [Moles/Vol] 24.8 mmol/L Normal 21.0-32.0 [facility] Comment on above: Order Comment: CBCD Performed By: #### L 501.41818, L500.4050, L506.1001, L501.9985, L500.4100, L501.9520, L506.0400, L100.0100 ####[facility] [address] [place], [address] Creatinine [Mass/Vol] 0.88 mg/dL Normal 0.70-1.20 [facility] Comment on above: Order Comment: CBCD Performed By: #### L 501.61535, L500.4050, L506.1001, L501.9985, L500.4100, L501.9520, L506.0400, L100.0100 ####[facility] [address] [place], [place], [phone] GAP 13 Normal 5-15 [facility] Comment on above: Order Comment: CBCD Performed By: #### L 501.59130, L500.4050, L506.1001, L501.9985, L500.4100, L501.9520, L506.0400, L100.0100 ####[facility] [address] [place], [place], [phone] GFR/1.73 sq M.predicted among non-blacks MDRD (S/P/Bld) [Vol rate/Area] 73 mL/min/{1.73_m2} Normal >60 [facility] Comment on above: Order Comment: CBCD Result Comment: mL/m in/1.73m2 CKD-EPI Creatinine Equation (2020) Performed By: #### L 501.30346, L500.4050, L506.1001, L501.9985, L500.4100, L501.9520, L506.0400, L100.0100 ####[facility] [address] [place], [address] Globulin (S) [Mass/Vol] 3.0 g/dL Normal 2.2-4.2 [facility] Comment on above: Order Comment: CBCD Performed By: #### L 501.48000, L500.4050, L506.1001, L501.9985, L500.4100, L501.9520, L506.0400, L100.0100 ####[facility] [address] [place], [address] Glucose [Mass/Vol] 103 mg/dL High 70-99 [facility] Comment on above: Order Comment: CBCD Performed By: #### L 501.88451, L500.4050, L506.1001, L501.9985, L500.4100, L501.9520, L506.0400, L100.0100 ####[facility] [address] [place], [address] Potassium [Moles/Vol] 3.6 mmol/L Normal 3.3-5.1 [facility] Comment on above: Order Comment: CBCD Performed By: #### L 501.35008, L500.4050, L506.1001, L501.9985, L500.4100, L501.9520, L506.0400, L100.0100 ####[facility] [address] [place], [address] Sodium [Moles/Vol] 141 mmol/L Normal 133-145 [facility] Comment on above: Order Comment: CBCD Performed By: #### L 501.21828, L500.4050, L506.1001, L501.9985, L500.4100, L501.9520, L506.0400, L100.0100 ####[facility] [address] [place], [place], [phone] T PROT 7.2 g/dL Normal 5.9-8.4 [facility] Comment on above: Order Comment: CBCD Performed By: #### L 501.37168, L500.4050, L506.1001, L501.9985, L500.4100, L501.9520, L506.0400, L100.0100 ####[facility] [address] [place], [place], [phone] Urea nitrogen [Mass/Vol] 18 mg/dL Normal 4-19 [facility] Comment on above: Order Comment: CBCD Performed By: #### L 501.83131, L500.4050, L506.1001, L501.9985, L500.4100, L501.9520, L506.0400, L100.0100 ####[facility] [address] [place], [place], [id number] Eosinophil percentageOrdered By: Margarita Meza on 12-21-2024 Eosinophils/100 WBC (Bld) 3.7 % 0-5 [facility] Erythrocyte distribution wid th (RBC) [Ratio]Ordered By: Margarita Meza on 12-21-2024 Erythrocyte distribution width (RBC) [Entitic vol] 44.3 fL High 35.1-43.9 [facility] Erythrocyte distribution wid th ratioOrdered By: Margarita Verdeys on 12-21-2024 Erythrocyte distribution width (RBC) [Ratio] 13.1 % 11.6-14.6 [facility] Erythrocyte distribution wid th standard deviationOrdered By: Margarita Verdeys on 12-21-2024 Erythrocyte distribution width (RBC) [Ratio] 44.3 fl High 35.1-43.9 [facility] Free T3on 12-21-2024 Free T3 [Mass/Vol] 3.3 pg/mL Normal 2.18-3.98 [facility] Comment on above: Order Comment: NCBCD Performed By: #### L 501.06604, L500.4050, L506.1001, L501.9985, L500.4100, L501.9520, L506.0400, L100.0100 ####[facility] [address] [place], [address] Free F7Jgickxw By: Margarita campos on 12-21-2024 Free T3 [Mass/Vol] 3.3 pg/mL 2.18-3.98 [facility] Free Triiodothyronine (T3) pg/dL 3.3 pg/mL 2.18-3.98 [facility] GFR/1.73 sq M.predicted leora g non-blacks MDRD (S/P/Bld) [Vol rate/Area]Ordered By: Margarita Meza on 12-21-2024 Estimated GFR (MDRD) Non-Af Amer 73 >60 [facility] Comment on above: mL/min/1.73m2 CKD-EP I Creatinine Equation (2020) Glomerular filtration rate ( GFR) estimation/1.73 sq m using serum, plasma, or whole bOrdered By: Margarita Meza on 12-21-2024 GFR/1.73 sq M.predicted among non-blacks MDRD (S/P/Bld) [Vol rate/Area] 73 mL/min/{1.73_m2} >60 [facility] Comment on above: mL/min/1.73m2 CKD-EP I Creatinine Equation (2020) Hematocrit Auto (Bld) [Volum e fraction]Ordered By: Margarita Meza on 12-21-2024 Hematocrit (Bld) [Volume fraction] 39.5 % 37-47 [facility] Hemoglobin A1con 12-21-2024 HbA1c (Bld) [Mass fraction] 5.7 % Normal <=5.6 [facility] Comment on above: Result Comment: Norm al < 5.7 % Prediabetic 5.7 - 6.4 % Diabetic >or= 6.5 % Please note range changes. Performed By: #### L 501.19425, L500.4050, L506.1001, L501.9985, L500.4100, L501.9520, L506.0400, L100.0100 ####[facility] [address] [place], [address] Hemoglobin A1c percentageOrd ered By: Margaritawalt Meza on 12-21-2024 HbA1c (Bld) [Mass fraction] 5.7 % <5.7 [facility] Comment on above: Normal < 5.7 % Predi abetic 5.7 - 6.4 % Diabetic >or= 6.5 % Please note range changes. Hemoglobin measurementOrdere d By: Margarita Meza on 12-21-2024 Hemoglobin (Bld) [Mass/Vol] 13.3 g/dL 12.0-15.0 [facility] Immature granulocytes/100 WB C Auto (Bld)Ordered By: Margarita Meza on 12-21-2024 Immature granulocytes/100 WBC (Bld) 0.300 % 0.0-0.9 [facility] Comment on above: IG% - Immature Granu locytes (promyelocytes, myelocytes and metamyelocytes) > 1% indicates that a LEFT SHIFT is Present. LDL calc ser/plasOrdered By: Margarita Meza on 12-21-2024 Cholesterol in LDL [Mass/Vol] 105 mg/dL [facility] Comment on above: Lkuhgmgmsy=071-657 m g/dL & Higher Cpfl=973 mg/dL or greater LDL Cholesterol, Calculated 105 mg/dL [facility] Comment on above: Tvppjjjlks=103-636 m g/dL & Higher Sygj=346 mg/dL or greater Laboratory - Chemistry and C hemistry - challengeOrdered By: Margarita Meza on 12-21-2024 AST [Catalytic activity/Vol] 24 U/L <32 [facility] [facility] Lipid Profileon 12-21-2024 CHOL:HDL 2.93 Normal [facility] Comment on above: Performed By: #### L 501.74192, L500.4050, L506.1001, L501.9985, L500.4100, L501.9520, L506.0400, L100.0100 ####[facility] [id number] [place], [place], [id number] Cholesterol [Mass/Vol] 182 mg/dL Normal <=200 [facility] Comment on above: Result Comment: Chol esterol level, Desirable <200 mg/dL Borderline high cholesterol 200-239 mg/dL High cholesterol >=240 mg/dL Recommendations of the NCEP Adult Treatment Panel for the following risk-cutoff thresholds for the [place] population. Performed By: #### L 501.56034, L500.4050, L506.1001, L501.9985, L500.4100, L501.9520, L506.0400, L100.0100 ####[facility] [id number] [place] [place], [address] Cholesterol in HDL [Mass/Vol] 62 mg/dL Normal [facility] Comment on above: Result Comment: [place]ver[place] onal Cholesterol Education Program (NCEP) guidelines: <40 mg/dL: Low HDL-cholesterol (major risk factor for CHD) >= 60 mg/dL: High HDL-cholesterol (negative risk factor for CHD) HDL-cholesterol is affected by a number of factors, e.g. smoking, exercise, hormones, sex and age. Performed By: #### L 501.55875, L500.4050, L506.1001, L501.9985, L500.4100, L501.9520, L506.0400, L100.0100 ####[facility] [id number] [place], [place], [phone]) Cholesterol in LDL [Mass/Vol] 105 mg/dL Normal [facility] Comment on above: Result Comment: Bord hkhfdk=858-984 mg/dL Higher Kvwv=980 mg/dL or greater Performed By: #### L 501.71929, L500.4050, L506.1001, L501.9985, L500.4100, L501.9520, L506.0400, L100.0100 ####[facility] [id number], [address] Cholesterol in VLDL [Mass/Vol] 15 mg/dL Normal 5-40 [facility] Comment on above: Performed By: #### L 501.80376, L500.4050, L506.1001, L501.9985, L500.4100, L501.9520, L506.0400, L100.0100 ####[facility] [id number] [place], [address] Triglyceride [Mass/Vol] 75 mg/dL Normal [facility] Comment on above: Result Comment: The drugs N-Acetylcysteine and Metamizole may falsely depress this assay. Normal range: <150 mg/dL Borderline High: 150-199 mg/dL High: 200-499 mg/dL Very High: >500 mg/dL Performed By: #### L 501.69444, L500.4050, L506.1001, L501.9985, L500.4100, L501.9520, L506.0400, L100.0100 ####[facility] [id number] [place], [address] Lymphocytes Auto (Unsp spec) [#/Vol]Ordered By: Margarita Meza on 12-21-2024 Lymphocytes (Bld) [#/Vol] 2.48 10*3/uL 0.83-4.51 [facility] Lymphocytes/100 WBC Auto (Un sp spec)Ordered By: Margarita Meza on 12-21-2024 Lymphocytes/100 WBC (Bld) 42.2 % High 19-41 [facility] MCV (mean corpuscular volume ) determinationOrdered By: Margarita Meza on 12-21-2024 MCV (RBC) [Entitic vol] 91.9 fL 81-99 [facility] Mean corpuscular hemoglobin (MCH) determinationOrdered By: Margarita Meza on 12-21-2024 MCH (RBC) [Entitic mass] 30.9 pg 27.0-32.0 [facility] Mean corpuscular hemoglobin concentration (MCHC) determinationOrdered By: Margarita Meza on 12-21-2024 MCHC (RBC) [Mass/Vol] 33.7 g/dL 32-36 [facility] Mean platelet volume determi nationOrdered By: Margarita Meza on 12-21-2024 Platelet mean volume (Bld) [Entitic vol] 11.0 fL 6.2-12.0 [facility] Monocyte percentageOrdered B y: Margarita Meza on 12-21-2024 Monocytes/100 WBC (Bld) 4.6 % 0-10 [facility] Neutrophil percentageOrdered By: Margarita Meza on 12-21-2024 Neutrophils/100 WBC (Bld) 48.5 % 47-70 [facility] Nucleated red blood cell per centageOrdered By: Margarita Meza on 12-21-2024 Nucleated RBC/100 WBC (Bld) [Ratio] 0 % 0-5 [facility] Pelvic w/ Transvaginalon Pelvic w/ Transvaginal [facility] Imaging Services [address] [place], [place] [address] Pelvic w/ Transvaginal MR#: [id number] Acct: [id number] Name: JOHANNA DOVE Rep #: [id number] : 1960 F 64 From: Toby sorto MD PCP: Dr. 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 Reading Location: [place] [address] CC: PERCY Collins; Dr. Margarita Meza DO Climbing Guide: Signed Normal [facility] Platelet countOrdered By: Coral Meza on 12-21-2024 Platelets (Bld) [#/Vol] 277 10*3/uL 150-450 [facility] Potassium (Unsp spec) [Mass/ Vol]Ordered By: Margarita Meza on 12-21-2024 Potassium [Moles/Vol] 3.6 mmol/L 3.3-5.1 [facility] Potassium measurement (mass/ volume)Ordered By: Margarita Meza on 12-21-2024 Potassium (Unsp spec) [Mass/Vol] 3.6 mmol/L 3.3-5.1 [facility] RBC Auto (Bld) [#/Vol]Ordere d By: Margarita Meza on 12-21-2024 RBC (Bld) [#/Vol] 4.30 10*6/uL 4.2-5.4 [facility] Screening total cholesterol/ high density lipoprotein (HDL) cholesterol ratioOrdered By: Margarita Meza on 12-21-2024 Cholesterol.total/Pao sterol in HDL [Mass ratio] 2.93 {ratio} [facility] Serum creatinine measurement (mass/volume)Ordered By: Margarita Meza on 12-21-2024 Creatinine [Mass/Vol] 0.88 mg/dL 0.70-1.20 [facility] Serum globulin measurementOr dered By: Margarita Meza on 12-21-2024 Globulin (S) [Mass/Vol] 3.0 g/dL 2.2-4.2 [facility] Serum glucose measurement (m ass/volume)Ordered By: Margarita Meza on 12-21-2024 Glucose [Mass/Vol] 103 mg/dL High 70-99 [facility] Serum or plasma alanine lisa otransferase (ALT) measurementOrdered By: Margarita Meza on 12-21-2024 ALT [Catalytic activity/Vol] 25 U/L <35 [facility] Serum or plasma albumin michele urement (mass/volume)Ordered By: Margarita Meza on 12-21-2024 Albumin [Mass/Vol] 4.2 g/dL 3.4-4.8 [facility] Serum or plasma albumin/glob ulin mass ratioOrdered By: Margarita Meza on 12-21-2024 Albumin/Globulin [Mass ratio] 1.4 {ratio} 0.9-2.4 [facility] Serum or plasma alkaline capo sphatase measurementOrdered By: Margarita Meza on 12-21-2024 ALP [Catalytic activity/Vol] 77 U/L 35-104 [facility] Serum or plasma calcium michele urement (mass/volume)Ordered By: Margarita Meza on 12-21-2024 Calcium [Mass/Vol] 9.4 mg/dL 7.6-11.0 [facility] Serum or plasma cholesterol in HDL measurement (mass/volume)Ordered By: Margarita Meza on 12-21-2024 Cholesterol in HDL [Mass/Vol] 62 mg/dL >40 [facility] Comment on above: National Cholesterol Education Program (NCEP) guidelines:<40 mg/dL: Low HDL-cholesterol (major risk factor for CHD)>= 60 mg/dL: High HDL-cholesterol (negative risk factor for CHD)HDL-cholesterol is affected by a number of factors, e.g. smoking, exercise, hormones, sex and age. Serum or plasma cholesterol measurement (mass/volume)Ordered By: Margarita Meza on 12-21-2024 Cholesterol [Mass/Vol] 182 mg/dL <201 [facility] Comment on above: Cholesterol level, D esirable <200 mg/dLBorderline high cholesterol 200-239 mg/dLHigh cholesterol >=240 mg/dLRecommendations of the NCEP Adult Treatment Panel for the following risk-cutoff thresholds for the [place] population. Serum or plasma urea nitroge n measurement (mass/volume)Ordered By: Margarita Meza on 12-21-2024 Urea nitrogen [Mass/Vol] 18 mg/dL 4-19 [facility] Sodium levelOrdered By: Margarita Meza on 12-21-2024 Sodium [Moles/Vol] 141 mmol/L 133-145 [facility] T4 Free Directon 12-21-2024 T4 FREE DIRECT 1.10 ng/dL Normal 0.76-1.46 [facility] Comment on above: Order Comment: NCBCD Performed By: #### L 501.54689, L500.4050, L506.1001, L501.9985, L500.4100, L501.9520, L506.0400, L100.0100 ####[facility] [id number] [place], [place], [id number] T4 freeOrdered By: Margarita Dean s on 12-21-2024 Free T4 [Mass/Vol] 1.10 ng/dL 0.76-1.46 [facility] TSH DL <= 0.005 mIU/L QnOrde red By: Margarita Meza on 12-21-2024 Thyroid Stimulating Hormone (TSH) 2.260 uIU/mL 0.300-4.200 [facility] TSH Qn 2.260 uIU/mL 0.300-4.200 [facility] Thyroid Stim Hormone (TSH)on 12-21-2024 TSH 2.260 uIU/mL Normal 0.300-4.200 [facility] Comment on above: Performed By: #### L 501.28991, L500.4050, L506.1001, L501.9985, L500.4100, L501.9520, L506.0400, L100.0100 ####[facility] [id number] [place], [place], [id number] Total proteinOrdered By: Katty Meza on 12-21-2024 Protein [Mass/Vol] 7.2 g/dL 5.9-8.4 [facility] Triglycerides measurementOrd ered By: Margarita Meza on 12-21-2024 Triglyceride [Mass/Vol] 75 mg/dL <199 [facility] Comment on above: The drugs N-Acetylcy steine and Metamizole may falsely depress this assay. Normal range: <150 mg/dLBorderline High: 150-199 mg/dLHigh: 200-499 mg/dLVery High: >500 mg/dL Vitamin D, 25-hydroxyOrdered By: Margarita Meza on 12-21-2024 Vitamin D 25-Hydroxy 54.7 ng/mL 30-100 [facility] Comment on above: Vitamin D StatusDefi ciency: <20 ng/mL (50nmol/L)Insufficiency: 20-30 ng/mL (50-75 nmol/L)Sufficiency: 30-100 ng/mL (75-250 nmol/L)Toxicity: >100 ng/mL (>250 nmol/L) Vitamin D,25 Hydroxyon 12-21 Vitamin D 25-OH 54.7 ng/mL Normal 30-100 [facility] Comment on above: Result Comment: Emelyn min D Status Deficiency: <20 ng/mL (50nmol/L) Insufficiency: 20-30 ng/mL (50-75 nmol/L) Sufficiency: 30-100 ng/mL (75-250 nmol/L) Toxicity: >100 ng/mL (>250 nmol/L) Performed By: #### L 501.74748, L500.4050, L506.1001, L501.9985, L500.4100, L501.9520, L506.0400, L100.0100 ####[facility] [id number] [place], [place], [address] White blood cell (WBC) count Ordered By: Margarita Meza on 12-21-2024 WBC (Bld) [#/Vol] 5.9 10*3/uL 4.4-11.0 [facility] Surgical pathology reportOrd ered By: Ania Penaloza on 12-15-2024 Surgical pathology study [facility] Associate Entertainment Editor Office Visit Reporton 12-08-2024 Associate Entertainment Editor Office Visit Report [facility]'[address], [address] [place] [address] OFFICE VISIT Date of Service: 12/08/24 MR#: [id number] Acct: [id number] Name: JOHANNA DOVE Rep #: [id number] : 1960 Provider: PERCY acevedo Age/Sex: 64/F Location: 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 Normal [facility] Surgery Specimen Level Jennifer 12-08-2024 Surgery Specimen Level IV Patient Age/Sex Location Account Attending Physician JOHANNA DOVE 64/F LABSPEC [id number] PERCY King Specimen: [id number] Received: 12/09/24 Status: NATHAN Flores Num: [id number] Spec Type: ENDOM BX/C Jose David Dr: PERCY King HEADER [...] the patient's name, date of , and "EMB" are multiple tiny and wispy fragments of dawson-lorenzo possible soft tissue admixed with mucus measuring approximately 1 x 1 x 0.1 cm. The specimen is submitted entirely for cellblock preparation in . [facility] 12-09-2024 [facility]:[id number] Patient Age/Sex Location Account Attending Physician JOHANNA DOVE 64/F LABSPEC [id number] PERCY King Signed (signature on file) Dr. Ania Penaloza MD 12/15/24 0942 Normal [facility] Comment on above: Performed By: #### P SUIV #### [facility] [address] [place], [address] Basophil percentageOrdered B y: Margarita Meza on 11-29-2023 Bilirubin [Mass/Vol] 0.40 mg/dL 0.20-1.00 [facility] Comment on above: For patients on eltr ombopag therapy, use of Dimension [place] TBIL is not recommended. Chloride [Moles/Vol] 109 mmol/L 98-107 [facility] Glucose [Mass/Vol] 122 mg/dL 74-106 [facility] Comment on above: Fasting Glucose resu lt from 100 to 125 mg/dL suggests IMPAIRED HOMEOSTASIS per A.D.A. criteria. Potassium [Moles/Vol] 4.2 mmol/L 3.5-5.1 [facility] Protein [Mass/Vol] 7.1 g/dL 6.4-8.2 [facility] Sodium [Moles/Vol] 141 mmol/L 136-145 [facility] Laboratory - Chemistry and C hemistry - challengeOrdered By: Margarita Meza on 11-29-2023 Albumin/Globulin [Mass ratio] 1.0 {ratio} 0.9-2.4 [facility] ALP [Catalytic activity/Vol] 86 U/L 45-117 [facility] ALT [Catalytic activity/Vol] 77 U/L 13-56 [facility] CO2 [Moles/Vol] 27.0 mmol/L 21.0-32.0 [facility] Globulin (S) [Mass/Vol] 3.5 g/dL 2.2-4.2 [facility] Urea nitrogen/Creatinine [Mass ratio] 14.9 mg/mg 10-20 [facility] No Panel InformationOrdered By: Margarita Meza on 11-29-2023 Estimated GFR (MDRD) Amer 84 mL/min >60 [facility] Comment on above: GFR Calc Estimated GFR (MDRD) Non-Af Amer 69 mL/min >60 [facility] Comment on above: Non- GFR Calc Serum or plasma calcium michele urement (mass/volume)Ordered By: Margarita Meza on 11-29-2023 Calcium [Mass/Vol] 9.0 mg/dL 8.5-10.1 [facility] Serum or plasma creatinine m easurement (mass/volume)Ordered By: Margarita Meza on 11-29-2023 Creatinine [Mass/Vol] 0.88 mg/dL 0.55-1.02 [facility] Comment on above: The validity of the calculated GFR & GFRAA in patients over 70 years has not been determined. Clinical correlation is essential. Serum or plasma urea nitroge n measurement (mass/volume)Ordered By: Margarita Meza on 11-29-2023 Urea nitrogen [Mass/Vol] 13 mg/dL 7-18 [facility] Thin prep Papanicolaou smear with manual screeningOrdered By: Margarita Meza on 11-29-2023 Thin prep Papanicolaou smear with manual screening 3.6 g/dL 3.2-5.0 [facility] Thin prep Papanicolaou smear with manual screening 74 U/L 15-37 [facility] Thin prep Papanicolaou smear with manual screening 5 5-15 [facility] Whole blood hemoglobin A1c/t otal hemoglobin ratio (mass fraction)Ordered By: Margarita Meza on 11-29-2023 HbA1c (Bld) [Mass fraction] 6.5 % 3.8-5.6 [facility] Comment on above: Normal < 5.7 % Predi abetic 5.7 - 6.4 % Diabetic >or= 6.5 % Please note range changes. Absolute lymphocyte countOrd ered By: Margarita Meza on 10-06-2023 Lymphocytes Auto (Unsp spec) [#/Vol] 2.60 10*3/uL 0.83-4.51 [facility] Automated lymphocyte count a s percentage of total leukocytesOrdered By: Margarita Meza on 10-06-2023 Lymphocytes/100 WBC Auto (Unsp spec) 39.6 % 19-41 [facility] Basophil percentageOrdered B y: Margarita Meza on 10-06-2023 Basophils/100 WBC (Bld) 0.8 % 0-1 [facility] Bilirubin [Mass/Vol] 0.50 mg/dL 0.20-1.00 [facility] Comment on above: For patients on eltr ombopag therapy, use of [place] TBIL is not recommended. Chloride [Moles/Vol] 108 mmol/L 98-107 [facility] Cholesterol [Mass/Vol] 166 mg/dL <200 [facility] Comment on above: <200 mg/dL Desirable 200-240 mg/dL Borderline >240 mg/dL High Risk Eosinophils/100 WBC (Bld) 4.4 % 0-5 [facility] Glucose [Mass/Vol] 121 mg/dL 74-106 [facility] Comment on above: Fasting Glucose resu lt from 100 to 125 mg/dL suggests IMPAIRED HOMEOSTASIS per A.D.A. criteria. Hemoglobin (Bld) [Mass/Vol] 13.2 g/dL 12.0-15.0 [facility] Monocytes/100 WBC (Bld) 6.6 % 0-10 [facility] Neutrophils (Bld) [#/Vol] 3.2 10*3/uL 2.0-7.7 [facility] Neutrophils/100 WBC (Bld) 48.3 % 47-70 [facility] Potassium [Moles/Vol] 3.6 mmol/L 3.5-5.1 [facility] Protein [Mass/Vol] 7.2 g/dL 6.4-8.2 [facility] Sodium [Moles/Vol] 140 mmol/L 136-145 [facility] Triglyceride [Mass/Vol] 128 mg/dL <199 [facility] Comment on above: The drugs N-Acetylcy steine and Metamizole may falsely depress this assay.Serum Triglycerides Reference Interval Normal <150 mg/dL Borderline high 150 - 199 mg/dL High 200 - 499 mg/dL Very High > or = 500 mg/dL WBC (Bld) [#/Vol] 6.6 10*3/uL 4.4-11.0 [facility] Determination of erythrocyte mean corpuscular volume (MCV)Ordered By: Margarita Meza on 10-06-2023 MCV (RBC) [Entitic vol] 91.3 fL 81-99 [facility] Erythrocyte distribution wid th ratioOrdered By: Margarita Meza on 10-06-2023 Erythrocyte distribution width (RBC) [Ratio] 13.2 % 11.6-14.6 [facility] Erythrocyte distribution wid th standard deviationOrdered By: Margarita Meza on 10-06-2023 Erythrocyte distribution width (RBC) [Entitic vol] 44.7 fL 35.1-43.9 [facility] Hematocrit Auto (Bld) [Volum e fraction]Ordered By: Margarita Meza on 10-06-2023 Hematocrit (Bld) [Volume fraction] 39.8 % 37-47 [facility] Immature granulocytes/100 WB C Auto (Bld)Ordered By: Margarita Meza on 10-06-2023 Immature granulocytes/100 WBC (Bld) 0.300 % 0.0-0.9 [facility] Comment on above: IG% - Immature Granu locytes (promyelocytes, myelocytes and metamyelocytes) > 1% indicates that a LEFT SHIFT is Present. Laboratory - Chemistry and C hemistry - challengeOrdered By: Margarita Meza on 10-06-2023 Albumin/Globulin [Mass ratio] 0.9 {ratio} 0.9-2.4 [facility] ALP [Catalytic activity/Vol] 83 U/L 45-117 [facility] ALT [Catalytic activity/Vol] 62 U/L 13-56 [facility] Cholesterol in HDL (Body fld) [Mass/Vol] 53 mg/dL >40 [facility] Comment on above: The drugs N-Acetylcy steine and Metamizole may falsely depress this assay. Reference Range HDL <40 mg/dL Low HDL Cholesterol HDL >or= 60 mg/dL High HDL Cholesterol Cholesterol in LDL (Body fld) [Moles/Vol] 87 mg/dL 0-130 [facility] Cholesterol in VLDL Calc [Moles/Vol] 26 mg/dL 5-40 [facility] CO2 [Moles/Vol] 27.0 mmol/L 21.0-32.0 [facility] Globulin (S) [Mass/Vol] 3.7 g/dL 2.2-4.2 [facility] Urea nitrogen/Creatinine [Mass ratio] 18.7 mg/mg 10-20 [facility] Laboratory - Hematology and Cell countsOrdered By: Margarita Meza on 10-06-2023 MCH (RBC) [Entitic mass] 30.3 pg 27.0-32.0 [facility] MCHC (RBC) [Mass/Vol] 33.2 g/dL 32-36 [facility] Nucleated RBC/100 WBC (Bld) [Ratio] 0 % 0-5 [facility] Platelets (Bld) [#/Vol] 246 10*3/uL 150-450 [facility] No Panel InformationOrdered By: Margarita Meza on 10-06-2023 Estimated GFR (MDRD) Amer 80 mL/min >60 [facility] Comment on above: GFR Calc Estimated GFR (MDRD) Non-Af Amer 67 mL/min >60 [facility] Comment on above: Non- GFR Calc Free Triiodothyronine (T3) pg/dL 2.9 pg/mL 2.18-3.98 [facility] Vitamin D 25-Hydroxy 82.2 ng/mL [facility] Comment on above: Vitamin D 25(OH) Sta tus Range Deficiency <20 ng/mL (50nmol/L) Insufficiency 20 - 30 ng/mL (50 - 75 nmol/L) Sufficiency 30 - 100 ng/mL (75 - 250 nmol/L) Toxicity >100 ng/mL (>250 nmol/L) Platelet mean volume Demian-Ec ker (Bld) [Entitic vol]Ordered By: Margarita Meza on 10-06-2023 Platelet mean volume (Bld) [Entitic vol] 10.5 fL 6.2-12.0 [facility] RBC Auto (Bld) [#/Vol]Ordere d By: Margarita Meza on 10-06-2023 RBC (Bld) [#/Vol] 4.36 10*6/uL 4.2-5.4 [facility] Serum or plasma calcium michele urement (mass/volume)Ordered By: Margarita Meza on 10-06-2023 Calcium [Mass/Vol] 9.1 mg/dL 8.5-10.1 [facility] Serum or plasma creatinine m easurement (mass/volume)Ordered By: Margarita Meza on 10-06-2023 Creatinine [Mass/Vol] 0.91 mg/dL 0.55-1.02 [facility] Comment on above: The validity of the calculated GFR & GFRAA in patients over 70 years has not been determined. Clinical correlation is essential. Serum or plasma thyroid stim ulating hormone (TSH) measurement (units/volume)Ordered By: Margarita Meza on 10-06-2023 TSH Qn 2.46 uIU/mL 0.358-3.74 [facility] Serum or plasma urea nitroge n measurement (mass/volume)Ordered By: Margarita Meza on 10-06-2023 Urea nitrogen [Mass/Vol] 17 mg/dL 7-18 [facility] Thin prep Papanicolaou smear with manual screeningOrdered By: Margarita Meza on 10-06-2023 Thin prep Papanicolaou smear with manual screening 3.5 g/dL 3.2-5.0 [facility] Thin prep Papanicolaou smear with manual screening 47 U/L 15-37 [facility] Thin prep Papanicolaou smear with manual screening 5 5-15 [facility] Thin prep Papanicolaou smear with manual screening 1.00 ng/dL 0.76-1.46 [facility] Absolute lymphocyte countOrd ered By: Dr. Meza on 07-20-2022 Lymphocytes Auto (Unsp spec) [#/Vol] 2.82 10*3/uL 0.83-4.51 [facility] Basophil percentageOrdered B y: Dr. Meza on 07-20-2022 Basophils/100 WBC (Bld) 0.6 % 0-1 [facility] Bilirubin [Mass/Vol] 0.50 mg/dL 0.20-1.00 [facility] Comment on above: For patients on eltr ombopag therapy, use of [place] TBIL is not recommended. Chloride [Moles/Vol] 106 mmol/L 98-107 [facility] Cholesterol [Mass/Vol] 167 mg/dL <200 [facility] Comment on above: <200 mg/dL Desirable 200-240 mg/dL Borderline >240 mg/dL High Risk Eosinophils/100 WBC (Bld) 4.9 % 0-5 [facility] Glucose [Mass/Vol] 97 mg/dL 74-106 [facility] Neutrophils (Bld) [#/Vol] 2.7 10*3/uL 2.0-7.7 [facility] Neutrophils/100 WBC (Bld) 43.3 % 47-70 [facility] Potassium [Moles/Vol] 3.7 mmol/L 3.5-5.1 [facility] Protein [Mass/Vol] 7.2 g/dL 6.4-8.2 [facility] Sodium [Moles/Vol] 142 mmol/L 136-145 [facility] Triglyceride [Mass/Vol] 101 mg/dL <199 [facility] Comment on above: The drugs N-Acetylcy steine and Metamizole may falsely depress this assay.Serum Triglycerides Reference Interval Normal <150 mg/dL Borderline high 150 - 199 mg/dL High 200 - 499 mg/dL Very High > or = 500 mg/dL WBC (Bld) [#/Vol] 6.3 10*3/uL 4.4-11.0 [facility] Blood erythrocytes count (nu mber/volume)Ordered By: Dr. Meza on 07-20-2022 RBC (Bld) [#/Vol] 4.51 10*6/uL 4.2-5.4 [facility] Blood hemoglobin measurement (mass/volume)Ordered By: Dr. Meza on 07-20-2022 Hemoglobin (Bld) [Mass/Vol] 13.8 g/dL 12.0-15.0 [facility] Blood lymphocytes/100 leukoc ytesOrdered By: Dr. Meza on 07-20-2022 Lymphocytes/100 WBC (Bld) 44.8 % 19-41 [facility] Blood monocytes/100 leukocyt esOrdered By: Dr. Meza on 07-20-2022 Monocytes/100 WBC (Bld) 6.2 % 0-10 [facility] Blood platelet mean volumeOr dered By: Dr. Meza on 07-20-2022 Platelet mean volume (Bld) [Entitic vol] 10.5 fL 6.2-12.0 [facility] [facility] Determination of erythrocyte mean corpuscular volume (MCV)Ordered By: Dr. Meza on 07-20-2022 MCV (RBC) [Entitic vol] 91.1 fL 81-99 [facility] Hematocrit Auto (Bld) [Volum e fraction]Ordered By: Dr. Meza on 07-20-2022 Hematocrit (Bld) [Volume fraction] 41.1 % 37-47 [facility] Laboratory - Chemistry and C hemistry - challengeOrdered By: Dr. Meza on 07-20-2022 ALP [Catalytic activity/Vol] 71 U/L 45-117 [facility] ALT [Catalytic activity/Vol] 37 U/L 13-56 [facility] CO2 [Moles/Vol] 32.0 mmol/L 21.0-32.0 [facility] Globulin (S) [Mass/Vol] 3.6 g/dL 2.2-4.2 [facility] Urea nitrogen/Creatinine [Mass ratio] 13.7 mg/mg 10-20 [facility] Laboratory - Hematology and Cell countsOrdered By: Dr. Meza on 07-20-2022 Erythrocyte distribution width (RBC) [Entitic vol] 43.6 fL 35.1-43.9 [facility] Erythrocyte distribution width (RBC) [Ratio] 13.1 % 11.6-14.6 [facility] Immature granulocytes/100 WBC (Bld) 0.200 % 0.0-0.9 [facility] Comment on above: IG% - Immature Granu locytes (promyelocytes, myelocytes and metamyelocytes) > 1% indicates that a LEFT SHIFT is Present. MCH (RBC) [Entitic mass] 30.6 pg 27.0-32.0 [facility] Nucleated RBC/100 WBC (Bld) [Ratio] 0 % 0-5 [facility] MCHC Auto (RBC) [Mass/Vol]Or dered By: Dr. Meza on 07-20-2022 MCHC (RBC) [Mass/Vol] 33.6 g/dL 32-36 [facility] No Panel InformationOrdered By: Dr. Meza on 07-20-2022 Estimated GFR (MDRD) Amer 84 mL/min >60 [facility] Comment on above: GFR Calc Estimated GFR (MDRD) Non-Af Amer 69 mL/min >60 [facility] Comment on above: Non- GFR Calc Platelets bldOrdered By: Dr. Meza on 07-20-2022 Platelets (Bld) [#/Vol] 277 10*3/uL 150-450 [facility] Serum or plasma albumin michele urement (mass/volume)Ordered By: Dr. Meza on 07-20-2022 Albumin [Mass/Vol] 3.6 g/dL 3.2-5.0 [facility] Serum or plasma albumin/glob ulin mass ratioOrdered By: Dr. Meza on 07-20-2022 Albumin/Globulin [Mass ratio] 1.0 {ratio} 0.9-2.4 [facility] Serum or plasma calcium michele urement (mass/volume)Ordered By: Dr. Meza on 07-20-2022 Calcium [Mass/Vol] 9.2 mg/dL 8.5-10.1 [facility] Serum or plasma cholesterol in HDL measurement (mass/volume)Ordered By: Dr. Meza on 07-20-2022 Cholesterol in HDL [Mass/Vol] 55 mg/dL >40 [facility] Comment on above: The drugs N-Acetylcy steine and Metamizole may falsely depress this assay. Reference Range HDL <40 mg/dL Low HDL Cholesterol HDL >or= 60 mg/dL High HDL Cholesterol Serum or plasma cholesterol in VLDL measurement (mass/volume)Ordered By: Dr. Meza on 07-20-2022 Cholesterol in VLDL [Mass/Vol] 20 mg/dL 5-40 [facility] Serum or plasma creatinine m easurement (mass/volume)Ordered By: Dr. Meza on 07-20-2022 Creatinine [Mass/Vol] 0.88 mg/dL 0.55-1.02 [facility] Comment on above: The validity of the calculated GFR & GFRAA in patients over 70 years has not been determined. Clinical correlation is essential. Serum or plasma low density lipoprotein (LDL) cholesterol measurement (mass/volume)Ordered By: Dr. Meza on 07-20-2022 Cholesterol in LDL [Mass/Vol] 92 mg/dL 0-130 [facility] Serum or plasma urea nitroge n measurement (mass/volume)Ordered By: Dr. Meza on 07-20-2022 Urea nitrogen [Mass/Vol] 12 mg/dL 7-18 [facility] Thin prep Papanicolaou smear with manual screeningOrdered By: Dr. Meza on 07-20-2022 Thin prep Papanicolaou smear with manual screening 23 U/L 15-37 [facility] Thin prep Papanicolaou smear with manual screening 4 5-15 [facility] PT Progress Noteon 1 PT Progress Note Therapy Diagnosis Assessed Left ankle pain (719.47) (M25.572) Plan Goals: Goals set and discussed today. Pt will demonstrate independence and compliance with HEP and self management, by week 2, goal met Activity Limitation: Increase LEFS to 60 or better for improved QOL, by week 6, goal met Balance: SLS x 10" L for decreased fall risk, by week [...] POC 02/11. completed supervising PT [facility] [place] [facility] Subjective Patient reports:. Reports occ anterior L ankle discomfort, has been wearing ankle brace. Pain 09/17. Sees early July. Precautions: weight bearing restrictions: FWB with brace. Fall Risk: low L trimalleolar ankle fracture s/p repair with hardware 01/25/21 per script: "balance training/proprioception , ROM/stretching, strengthening/stabiliza tion, joint mobilization, pain reduction, edema control, gait training, HEP, TENS, compression stockings/dressing, functional progression" relevant med hx: L bunionectomy and hammer [...] code time is 42 minutes. Therapeutic exercise (42808): timed minutes 42, units 3 . L [...] less aggra (more content not included)... Normal [facility] Therapy Re-eval Noteon 07-05 Therapy Re-eval Note Therapy Diagnosis Assessed 1. Left ankle pain (719.47) (M25.572) Plan Goals: Goals set and discussed today. Pt will demonstrate independence and compliance with HEP and self management, by week 2, goal met Activity Limitation: Increase LEFS to 60 or better for improved QOL, by week 6, goal met Balance: SLS x 10" L for decreased fall risk, by week [...] POC 02/11. completed supervising PT [facility] [place] [facility] Subjective Patient reports:. Reports occ anterior L ankle discomfort, has been wearing ankle brace. Pain 09/17. Sees MD early July. Precautions: weight bearing restrictions: FWB with brace. Fall Risk: low L trimalleolar ankle fracture s/p repair with hardware 01/25/21 per script: "balance training/proprioception , ROM/stretching, strengthening/stabiliza tion, joint mobilization, pain reduction, edema control, gait training, HEP, TENS, compression stockings/dressing, functional progression" relevant med hx: L bunionectomy and hammer [...] code time is 42 minutes. Therapeutic exercise (62405): timed minutes 42, units 3 . L [...] less ag (more content not included)... Normal [facility] PT Progress Noteon 1 PT Progress Note Therapy Diagnosis Assessed Left ankle pain (719.47) (M25.572) Plan Goals: Goals set and discussed today. Pt will demonstrate independence and compliance with HEP and self management, by week 2, goal met Activity Limitation: Increase LEFS to 60 or better for improved QOL, by week 6, goal partially met Balance: SLS x 10" L for decreased fall risk, by week [...] POC 01/11. completed supervising PT [facility] [place] [facility] Subjective Patient reports:. Wearing her [...] s/p repair with hardware 01/25/21 per script: "balance training/proprioception , ROM/stretching, strengthening/stabiliza tion, joint mobilization, pain reduction, edema control, gait training, HEP, TENS, compression stockings/dressing, functional progression" relevant med hx: L bunionectomy and hammer toe surgery, decreased resultant toe ROM . Treatment Time in clinic started at 10:45 am Time in clinic ended at 11:30 am Total time in clinic is 45 minutes. Total timed code time is 43 minutes. Therapeutic exercise (51669): timed minutes 20, units 1 . *See Gait* *See NMR* *BRACE ON FOR ALL STANDING EX'S AND LEG PRESS* SciFit Nustep, seat 19, Lv-3 x5, LE's only, with brace Slant board 2 x 30" B L FWD Step ups 6" steps x12 L lateral step ups 6" step x12 B standing heel raises off edge of step 2 x10 (P) Reciprocal stairs, 10 steps x2, 1 UE assist ascending, B UE assist descending (not today) Supine leg press - 75# B 2x10 (P, resitance) - 25# L 2x12 (P, reps) Standing fitter board w/ 2.5" insert: PF/DR x20, INV/EV x20 (for ROM) seated BAPS level 1 L PF/DF, circles CW/CCW 2 x 10 E (X) DF stretch with green strap 10" x10 (X) INV/EV stretch with purple flexband 5" x10 (X) L ankle PRE: - PF, Blue band 2x12 (X) - DF/ INV/ EV green band (more content not included)... Normal [facility] [...] 6, goal partially met Balance: SLS x 10" L for decreased fall risk, by week [...] Her fall resulted in the following injury: Darnell SPENCER does not have a fear of falling. [...] POC 12/12. completed supervising PT [facility] [place] [facility] Subjective Patient reports:. States she had not used her crutch all week and she only has a little discomfort on top/lateral aspect of left foot and at [place] today. Home program performing as directed: Yes. Precautions: weight bearing restrictions: FWB with brace. Fall Risk: low L trimalleolar ankle fracture s/p repair with hardware 01/25/21 per script: "balance training/proprioception , ROM/stretching, strengthening/stabiliza tion, joint mobilization, pain reduction, edema control, gait training, HEP, TENS, compression stockings/dressing, functional progression" relevant med hx: L bunionectomy and hammer toe surgery, decreased resultant toe ROM . Treatment Time in clinic started at 11:30 am Time in clinic ended at 12:11 pm Total time in clinic is 41 minutes. Total timed code time is 39 minutes. Therapeutic exercise (10142): timed minutes 17, units 1 . *See Gait* *See NMR* *BRACE ON FOR ALL STANDING EX'S AND LEG PRESS* SciFit Nustep, seat 19, Lv-3 x5, LE's only, with brace Slant board 2 x 30" B L FWD Step ups 6" steps x12 L lateral step ups 6" step x12 B standing heel raises 2 x10 Reciprocal stairs, 10 steps x2, 1 UE assist ascending, B UE assist descending (not today) Supine leg press - 65# B 2x10 - 25# L 2x10 Standing fitter board w/ 2.5" insert: PF/DR x20, INV/EV x20 (for ROM) (X not today) seated BAPS level 1 L PF/DF, circles CW/CCW 2 x 10 E DF stretch with green strap 10" x10 (X, no time) INV/EV stretch with purple flexband 5" x10 (X, no time) L ankle PRE: - PF, Blue band 2x12 (X not today) - DF/ INV/ EV green band 2x12 (not today) (more content not included)... Normal [facility] PT Progress Noteon 1 PT Progress Note Therapy Diagnosis Assessed Left ankle pain (719.47) (M25.572) Plan Goals: Goals set and discussed today. Pt will demonstrate independence and compliance with HEP and self management, by week 2, goal met Activity Limitation: Increase LEFS to 60 or better for improved QOL, by week 6, goal partially met Balance: SLS x 10" L for decreased fall risk, by week [...] POC 11/11. completed supervising PT [facility] [place] [facility] Subjective Patient reports:. Pt rates [...] s/p repair with hardware 01/25/21 per script: "balance training/proprioception , ROM/stretching, strengthening/stabiliza tion, joint mobilization, pain reduction, edema control, gait training, HEP, TENS, compression stockings/dressing, functional progression" relevant med hx: L bunionectomy and hammer toe surgery, decreased resultant toe ROM . Treatment Time in clinic started at 11:30 am Time in clinic ended at 12:15 pm Total time in clinic is 45 minutes. Total timed code time is 43 minutes. Therapeutic exercise (36773): timed minutes 20, units 1 . *See Gait* *See NMR* *BRACE ON FOR ALL STANDING EX'S AND LEG PRESS* SciFit Nustep, seat 19, Lv-3 x6, LE's only, with brace (P) Slant board 2 x 30" B FWD Step ups 6" steps L x12 L lateral step ups 6" x12 B standing heel raises 2 x10 Reciprocal stairs, 10 steps x2, 1 UE assist ascending, B UE assist descending (not today) Supine leg press (not today) - 65# B 2x10 - 25# L 2x10 Standing fitter board w/ 2.5" insert: PF/DR x20, INV/EV x20 (for ROM) (not today) seated BAPS level 1 L PF/DF, circles CW/CCW 2 x 10 E DF stretch with green strap 10" x10 (X, no time) INV/EV stretch with purple flexband 5" (more content not included)... Normal [facility] PT Progress Noteon 1 PT Progress Note Therapy Diagnosis Assessed Left ankle pain (719.47) (M25.572) Plan Goals: Goals set and discussed today. Pt will demonstrate independence and compliance with HEP and self management, by week 2, goal met Activity Limitation: Increase LEFS to 60 or better for improved QOL, by week 6, goal partially met Balance: SLS x 10" L for decreased fall risk, by week [...] POC 10/14. completed supervising PT [facility] [place] [facility] Subjective Patient reports:. States she [...] s/p repair with hardware 01/25/21 per script: "balance training/proprioception , ROM/stretching, strengthening/stabiliza tion, joint mobilization, pain reduction, edema control, gait training, HEP, TENS, compression stockings/dressing, functional progression" relevant med hx: L bunionectomy and hammer toe surgery, decreased resultant toe ROM . Treatment Time in clinic started at 11:30 am Time in clinic ended at 12:16 pm Total time in clinic is minutes. Therapeutic exercise (75139): timed minutes 6, units 0 . *See Gait* *See NMR* *BRACE ON FOR ALL STANDING EX'S AND LEG PRESS* SciFit Nustep, seat 19, Lv-3 x5, LE's only, with brace Slant board 2 x 30" B FWD Step ups 6" steps L x12 (not today) L lateral step ups x12 (not today) B standing heel raises 2 x10 (not today) Reciprocal stairs, 10 steps x2, 1 UE assist ascending, B UE assist descending (not today) Supine leg press (not today) - 65# B 2x10 - 25# L 2x10 Standing fitter board w/ 2.5" insert: PF/DR x20, INV/EV x20 (for ROM) (not today) seated BAPS level 1 L PF/DF, circles CW/CCW 2 x 10 E (X, no time) DF stretch with green strap 10" x10 (X, no time) INV/EV stretch with purple flexband 5" x10 (X, no time) L ankle PRE: (X, no dat (more content not included)... Normal [facility] PT Progress Noteon 1 PT Progress Note Therapy Diagnosis Assessed Left ankle pain (719.47) (M25.572) Plan Goals: Goals set and discussed today. Pt will demonstrate independence and compliance with HEP and self management, by week 2, goal met Activity Limitation: Increase LEFS to 60 or better for improved QOL, by week 6, goal partially met Balance: SLS x 10" L for decreased fall risk, by week [...] POC 09/13. completed supervising PT [facility] [place] [facility] Subjective Patient reports:. States she started to have pain on the lateral top of her left foot. Pain started on Friday. She did go to [place] on Friday, but states she rode in a cart. Did have to use a crutch to assist with ambulation yesterday due to pain. Pain decreased post treatment. Home program performing as directed: Yes. Precautions: weight bearing restrictions: FWB with brace. Fall Risk: low L trimalleolar ankle fracture s/p repair with hardware 01/25/21 per script: "balance training/proprioception , ROM/stretching, strengthening/stabiliza tion, joint mobilization, pain reduction, edema control, gait training, HEP, TENS, compression stockings/dressing, functional progression" relevant med hx: L bunionectomy and hammer toe surgery, decreased resultant toe ROM . Treatment Time in clinic started at 9:30 am Therapeutic exercise (18167): timed minutes 20, units 1 . *See Gait* *See NMR* *BRACE ON FOR ALL STANDING EX'S AND LEG PRESS* SciFit Nustep, seat 19, Lv-3 x5, LE's only, with brace (P) Slant board 2 x 30" B FWD Step ups 6" steps L x12 (not today) L lateral step ups x12 (not today) B standing heel raises 2 x10 (not today) Reciprocal stairs, 10 steps x2, 1 UE assist ascending, B UE assist descending (not today) Supine leg press (not today) - 65# B 2x10 - 25# L 2x10 Standing fitter board w/ 2.5" insert: PF/DR x20, INV/EV x20 (for ROM) (not today) seated BAPS level 1 L PF/DF, circles CW/CCW 2 x 10 E DF stretch with green strap 10" x10 INV/EV stretch with purple flexband 5" x10 (X, no time) L ankle PRE: - PF, Blue band 2x12 - DF/ INV/ EV green band 2x12 (more content not included)... Normal [facility] PT Progress Noteon 1 PT Progress Note Therapy Diagnosis Assessed Left ankle pain (719.47) (M25.572) Plan Goals: Goals set and discussed today. Pt will demonstrate independence and compliance with HEP and self management, by week 2, goal met Activity Limitation: Increase LEFS to 60 or better for improved QOL, by week 6, goal partially met Balance: SLS x 10" L for decreased fall risk, by week [...] number: 16 POC supervising PT [facility] [place] [facility] Subjective Patient reports:. Notes difficulty [...] s/p repair with hardware 01/25/21 per script: "balance training/proprioception , ROM/stretching, strengthening/stabiliza tion, joint mobilization, pain reduction, edema control, gait training, HEP, TENS, compression stockings/dressing, functional progression" relevant med hx: L bunionectomy and hammer toe surgery, decreased resultant toe ROM . Objective Ortho LEFS 40/80 L ankle DF AROM 0, PF AROM 35, inversion AROM 30, eversion AROM 10 . Treatment Time in clinic started at 1:32 pm Time in clinic ended at 2:05pm Total time in clinic is 33 minutes. Total timed code time is 25 minutes. Therapeutic exercise (07505): timed minutes 25, units 2 . *See Gait* *See NMR* *BRACE ON FOR ALL STANDING EX'S AND LEG PRESS* SciFit Nustep, seat 19, Lv-2 x5, LE's only, with brace Slant board 2 x 30" B FWD Step ups 6" steps L x12 (not today) L lateral step ups x12 (not today) B standing heel raises 2 x10 (not today) Reciprocal stairs, 10 steps x2, 1 UE assist ascending, B UE assist desc (more content not included)... Normal [facility] Therapy Re-eval Noteon 05-17 Therapy Re-eval Note Therapy Diagnosis Assessed 1. Left ankle pain (719.47) (M25.572) Plan Goals: Goals set and discussed today. Pt will demonstrate independence and compliance with HEP and self management, by week 2, goal met Activity Limitation: Increase LEFS to 60 or better for improved QOL, by week 6, goal partially met Balance: SLS x 10" L for decreased fall risk, by week [...] number: 16 POC supervising PT [facility] [place] [facility] Subjective Patient reports:. Notes difficulty [...] s/p repair with hardware 01/25/21 per script: "balance training/proprioception , ROM/stretching, strengthening/stabiliza tion, joint mobilization, pain reduction, edema control, gait training, HEP, TENS, compression stockings/dressing, functional progression" relevant med hx: L bunionectomy and hammer toe surgery, decreased resultant toe ROM . Objective Ortho LEFS 40/80 L ankle DF AROM 0, PF AROM 35, inversion AROM 30, eversion AROM 10 . Treatment Time in clinic started at 1:32 pm Time in clinic ended at 2:05pm Total time in clinic is 33 minutes. Total timed code time is 25 minutes. Therapeutic exercise (08585): timed minutes 25, units 2 . *See Gait* *See NMR* *BRACE ON FOR ALL STANDING EX'S AND LEG PRESS* SciFit Nustep, seat 19, Lv-2 x5, LE's only, with brace Slant board 2 x 30" B FWD Step ups 6" steps L x12 (not today) L lateral [...] QOL, by week 6 Balance: SLS x 10" L for decreased fall risk, by week [...] number: 15 POC supervising PT [facility] [place] [facility] Subjective Patient reports:. Reports her [...] s/p repair with hardware 01/25/21 per script: "balance training/proprioception , ROM/stretching, strengthening/stabiliza tion, joint mobilization, pain reduction, edema control, gait training, HEP, TENS, compression stockings/dressing, functional progression" Now partial WBAT with LLE in CAM, [...] code time is 38 minutes. Therapeutic exercise (01183): timed minutes 27, units 2 . *See Gait* *See NMR* *BRACE ON FOR ALL STANDING EX'S AND LEG PRESS* *Per report, patient can start full WB in cam boot on Apr 13 per tolerance) NuStep, seat 10 LE's only, Lv-2 x5' for L ankle ROM - with brace (X) SciFit Nustep, seat 19, Lv-2 x5, LE's only, with brace Slant board 2 x 30" B FWD Step ups 6" steps L x12 L lateral step ups x12 B standing heel raises 2 x10 Reciprocal stairs, 10 steps x2, 1 UE assist ascending, B UE assist descending Supine leg press - 65# B 2x10 - 25# L 2x10 Standing fitter board w/ 2.5" insert: PF/DR x20, INV/EV x20 (for ROM) DF stretch with purple flexband 10" x10 (X, no tme) INV/EV stretch with purple flexband 5" x10 (X, no time) L ankle P (more content not included)... Normal [facility] PT Progress Noteon 1 PT Progress Note Therapy Diagnosis Assessed Left ankle pain (719.47) (M25.572) Plan Goals: Goals set and discussed today. Pt will demonstrate independence and compliance with HEP and self management, by week 2 Activity Limitation: Increase LEFS to 60 or better for improved QOL, by week 6 Balance: SLS x 10" L for decreased fall risk, by week [...] and ROM for ease of reciprocal stairs. -DANIELLE. Assessment Patient identified by name AND . [...] number: 14 POC supervising PT [facility] [place] [facility] Subjective Patient reports:. Her back [...] s/p repair with hardware 01/25/21 per script: "balance training/proprioception , ROM/stretching, strengthening/stabiliza tion, joint mobilization, pain reduction, edema control, gait training, HEP, TENS, compression stockings/dressing, functional progression" Now partial WBAT with LLE in CAM, will transition to full WBAT, possible brace transition around week 10 pending x-ray update. relevant med hx: L bunionectomy and hammer toe surgery, decreased resultant toe ROM . Treatment Time in clinic started at 1:15 pm Time in clinic ended at 1:59 pm Total time in clinic is 44 minutes. Therapeutic exercise (96534): timed minutes 19, units 1 . *See Gait* *See NMR* *BRACE ON FOR ALL STANDING EX'S AND LEG PRESS* *Per report, patient can start full WB in cam boot on Apr 13 per tolerance) NuStep, seat 10 LE's only, Lv-2 x5' for L ankle ROM - with brace Slant board 2 x 30" B (P, time) L ankle AROM PF/DF, INV/EV, x20 ea L (X, no time) DF stretch with purple flexband 10" x10 (X, no tme) INV/EV stretch with purple flexband 5" x10 (X, no time) L ankle PRE: - PF, Blue band 2x12 (X, no time) - DF/ INV/ EV [place] band 2x12 (X, no time) Standing fitter board w/ 2.5" insert: PF/ x20, INV/EV x20 (for ROM) (X, no time) FWD Step ups 6" steps L x12 (P, reps) L lateral step ups x12 (P, reps) B standing heel raises 2 x10 Supine leg press (more content not included)... Normal [employer] PT Progress Noteon PT Progress Note Therapy Diagnosis Assessed Left ankle pain (719.47) (M25.572) Plan Goals: Goals set and discussed today. Pt will demonstrate independence and compliance with HEP and self management, by week 2 Activity Limitation: Increase LEFS to 60 or better for improved QOL, by week 6 Balance: SLS x 10" L for decreased fall risk, by week [...] periods of time with her job. - [place]. Assessment Patient identified by name [...] number: 13 POC supervising PT [facility] [place] [facility] Subjective Patient reports:. 10/18 left [...] s/p repair with hardware 01/25/21 per script: "balance training/proprioception , ROM/stretching, strengthening/stabiliza tion, joint mobilization, pain reduction, edema control, gait training, HEP, TENS, compression stockings/dressing, functional progression" Now partial WBAT with LLE in CAM, [...] code time is 44 minutes. Therapeutic exercise (75263): timed minutes 32, units 2 . *See Gait* *BRACE ON FOR ALL STANDING EX'S AND LEG PRESS* *Per report, patient can start full WB in cam boot on Apr 13 per tolerance) NuStep, seat 10 LE's only, Lv-2 x5' for L ankle ROM - with brace Slant board 2 x 20" B L ankle AROM PF/DF, INV/EV, x20 ea L DF stretch with purple flexband 10" x10 INV/EV stretch with purple flexband 5" x10 L ankle PRE: - PF, Blue band 2x12 - DF/ INV/ EV [place] band 2x12 (X, no time) Standing fitter board w/ 2.5" insert: PF/DR x20, INV/EV x20 (for ROM) FWD Step ups 6" steps L x10 L lateral step ups x10 (N) B standing heel raises 2 x10 (more content not included)... Normal [employer] PT Progress Noteon 1 PT Progress Note Therapy Diagnosis Assessed Left ankle pain (719.47) (M25.572) Plan Goals: Goals set and discussed today. 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 Patient arrived 15 min late [...] eating). Insurance Insurance reviewed Visit number: 12 08/23 supervising PT [facility] [place] [facility] Subjective Patient reports:. Reports 3/10 [...] s/p repair with hardware 01/25/21 per script: "balance training/proprioception , ROM/stretching, strengthening/stabiliza tion, joint mobilization, pain reduction, edema control, gait training, HEP, TENS, compression stockings/dressing, functional progression" Now partial WBAT with LLE in CAM, [...] code time is 30 minutes. Therapeutic exercise (93727): timed minutes 15 . *See Gait* *BRACE ON FOR ALL STANDING EX'S AND LEG PRESS* *Per report, patient can start full WB in cam boot on Apr 13 per tolerance) NuStep, seat 10 LE's only, Lv-2 x5' for L ankle ROM - with brace Slant board 2 x 20" B L ankle AROM PF/DF, INV/EV, x20 ea L (X, no time) DF stretch with purple flexband 10" x10 (X, no time) INV/EV stretch with purple flexband 5" x10 (X, no time) L ankle PRE: - PF, Blue band 2x12 (X, no time) - DF/ INV/ EV [place] band 2x12 (X, no time) Standing fitter board w/ 2.5" insert: PF/DR 2 x10, INV/EV 2x10 FWD Step ups 6" steps L x10 (X, no time) L lateral step ups (A) B standing heel raises 2 x10 Supine leg press, light weight - 50# B 2x10 (P, s (more content not included)... Normal [facility] PT Progress Noteon 1 PT Progress Note Therapy Diagnosis Assessed Left ankle pain (719.47) (M25.572) Plan Goals: Goals set and discussed today. Pt will demonstrate independence and compliance with HEP and self management, by week 2 Activity Limitation: Increase LEFS to 60 or better for improved QOL, by week 6 Balance: SLS x 10" L for decreased fall risk, by week [...] 11 POC 07/24 supervising PT [facility] [place] [facility] Subjective Patient reports:. Pain in left ankle today when she walks. -12/16. States that she has less pain in the bottom of her foot and her foot pain is "in" her left ankle today. Pain level the same post treatment. Patient has a F/U visit with her surgeon tomorrow. Precautions: weight bearing restrictions: PWBing LLE with CAM boot, will transfer to full WBAT/brace transition around week 10 pending x-ray update. Fall Risk: low L trimalleolar ankle fracture s/p repair with hardware 01/25/21 per script: "balance training/proprioception , ROM/stretching, strengthening/stabiliza tion, joint mobilization, pain reduction, edema control, gait training, HEP, TENS, compression stockings/dressing, functional progression" Now partial WBAT with LLE in CAM, will transition to full WBAT, possible brace transition around week 10 pending x-ray update. relevant med hx: L bunionectomy and hammer toe surgery, decreased resultant toe ROM . Treatment Time in clinic started at 11:02 am Time in clinic ended at 12:18 pm Total time in clinic is 46 minutes. Therapeutic exercise (47604): timed minutes 34, units 2 . *See Gait* *BRACE ON FOR ALL STANDING EX'S AND LEG PRESS* *Per report, patient can start full WB in cam boot on Apr 13 per tolerance) NuStep, seat 10 LE's only, Lv-2 x5' for L ankle ROM - with brace (X, both in use) Slant board 2 x 20" B L ankle AROM PF/DF, INV/EV, x20 ea L (P) DF stretch with purple flexband 10" x10 INV/EV stretch with purple flexband 5" x10 L ankle PRE: - PF, Blue band 2x12 (P, reps) - DF/ INV (more content not included)... Normal [facility] PT Progress Noteon 1 PT Progress Note Therapy Diagnosis Assessed Left ankle pain (719.47) (M25.572) Plan Goals: Goals set and discussed today. Pt will demonstrate independence and compliance with HEP and self management, by week 2 Activity Limitation: Increase LEFS to 60 or better for improved QOL, by week 6 Balance: SLS x 10" L for decreased fall risk, by week [...] dressing, eating). Insurance Insurance reviewed Visit number: POC 06/23 supervising PT [facility] [place] [facility] Subjective Patient reports:. L ankle is painful today. She worked 3 hours prior to coming to therapy. Precautions: weight bearing restrictions: PWBing LLE with CAM boot, will transfer to full WBAT/brace transition around week 10 pending x-ray update. Fall Risk: low L trimalleolar ankle fracture s/p repair with hardware 01/25/21 per script: "balance training/proprioception , ROM/stretching, strengthening/stabiliza tion, joint mobilization, pain reduction, edema control, gait training, HEP, TENS, compression stockings/dressing, functional progression" Now partial WBAT with LLE in CAM, [...] code time is 53 minutes. Therapeutic exercise (71290): timed minutes 23, units 2 . *See Gait* *Per report, patient can start full WB in cam boot on Apr 13 per tolerance) NuStep, seat 10 LE's only, Lv-2 x5' for L ankle ROM - with brace (P) Slant board 2 x 20" B L ankle AROM PF/DF, INV/EV, 2x10 ea L DF stretch with purple flexband 10" x10 INV/EV stretch with purple flexband 5" x10 L ankle PRE: - PF, Blue band 2x10 - DF/ INV/ EV [place] band 2x10 Seated fitter board w/ 2.5" insert: PF/DR 2 x10, INV/EV 2x10 FWD Step ups 6" steps L x10 (P) L lateral step ups (A) B standing heel raises (A) Supine leg press, light weight (A) - Lateral weight shifting in parallel bars with CAM boot L to 120 lbs wb'ing x 10 EO, x10 EO fwd with R foot on green step (pt has permission to be 75% WBing (more content not included)... Normal [facility] PT Progress Note No report was sent Normal [employer] PT Progress Noteon PT Progress Note Therapy Diagnosis Assessed Left ankle pain (719.47) (M25.572) Plan Goals: Goals set and discussed today. Pt will demonstrate independence and compliance with HEP and self management, by week 2 Activity Limitation: Increase LEFS to 60 or better for improved QOL, by week 6 Balance: SLS x 10" L for decreased fall risk, by week [...] 9 POC 05/24 supervising PT [facility] [place] [facility] Subjective Patient reports:. Pt. is [...] s/p repair with hardware 01/25/21 per script: "balance training/proprioception , ROM/stretching, strengthening/stabiliza tion, joint mobilization, pain reduction, edema control, gait training, HEP, TENS, compression stockings/dressing, functional progression" Now partial WBAT with LLE in CAM, [...] code time is 41 minutes. Therapeutic exercise (91518): timed minutes 33, units 2 . 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 Normal [facility] PT Progress Noteon 1 PT Progress Note Therapy Diagnosis Assessed Left ankle pain (719.47) (M25.572) Plan Goals: Goals set and discussed today. Pt will demonstrate independence and compliance with HEP and self management, by week 2 Activity Limitation: Increase LEFS to 60 or better for improved QOL, by week 6 Balance: SLS x 10" L for decreased fall risk, by week [...] 8 POC 04/23 supervising PT [facility] [place] [facility] Subjective Patient reports:. Pt. states [...] s/p repair with hardware 01/25/21 per script: "balance training/proprioception , ROM/stretching, strengthening/stabiliza tion, joint mobilization, pain reduction, edema control, gait training, HEP, TENS, compression stockings/dressing, functional progression" Now partial WBAT with LLE in CAM, [...] code time is 41 minutes. Therapeutic exercise (00638): timed minutes 33, units 2 . *Per [...] green step (more content not included)... Normal [employer] PT Progress Noteon 1 PT Progress Note Therapy Diagnosis Assessed Left ankle pain (719.47) (M25.572) Plan Goals: Goals set and discussed today. Pt will demonstrate independence and compliance with HEP and self management, by week 2 Activity Limitation: Increase LEFS to 60 or better for improved QOL, by week 6 Balance: SLS x 10" L for decreased fall risk, by week [...] 7 POC 03/23 supervising PT [facility] [place] [facility] Subjective Patient reports:. Pt. c/o 09/17 pain. States she's using her left leg more during ambulation. Home program performing as directed: Yes. Precautions: weight bearing restrictions: PWBing LLE with CAM boot, will transfer to full WBAT/brace transition around week 10 pending x-ray update. Fall Risk: low L trimalleolar ankle fracture s/p repair with hardware 01/25/21 per script: "balance training/proprioception , ROM/stretching, strengthening/stabiliza tion, joint mobilization, pain reduction, edema control, gait training, HEP, TENS, compression stockings/dressing, functional progression" Now partial WBAT with LLE in CAM, [...] code time is 43 minutes. Therapeutic exercise (47734): timed minutes 28, units 2 . 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 Manual Therapy (80309): timed minutes 15, units 1 . PROM into DF 10" x 5 STM/ to plantar fascia ASTM (A, if (more content not included)... Normal [employer] PT Progress Noteon 1 PT Progress Note Therapy Diagnosis Assessed Left ankle pain (719.47) (M25.572) Plan Goals: Goals set and discussed today. Pt will demonstrate independence and compliance with HEP and self management, by week 2 Activity Limitation: Increase LEFS to 60 or better for improved QOL, by week 6 Balance: SLS x 10" L for decreased fall risk, by week [...] Assessment Patient tolerated treatment without pain. Reports "tightness" in plantar region of left foot. Patient [...] 6 POC 01/21 supervising PT [facility] [place] [facility] Subjective Patient reports:. Patient reports [...] s/p repair with hardware 01/25/21 per script: "balance training/proprioception , ROM/stretching, strengthening/stabiliza tion, joint mobilization, pain reduction, edema control, gait training, HEP, TENS, compression stockings/dressing, functional progression" Now partial WBAT with LLE in CAM, [...] code time is 40 minutes. Therapeutic exercise (88249): timed minutes 30, units 2 . 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 Manual Therapy (01838): timed minutes 15, units 1 . PROM into DF 10" x 5 STM/ to plantar fascia ASTM (A, if needed). Provided today: education . 04/02 (more content not included)... Normal [facility] PT Progress Noteon 1 PT Progress Note Therapy Diagnosis Assessed Left ankle pain (719.47) (M25.572) Plan Goals: Goals set and discussed today. Pt will demonstrate independence and compliance with HEP and self management, by week 2 Activity Limitation: Increase LEFS to 60 or better for improved QOL, by week 6 Balance: SLS x 10" L for decreased fall risk, by week [...] 5 POC 01/21 supervising PT [facility] [place] [facility] Subjective Patient reports:. Denies L ankle pain pretreatment. Bottom of foot was sore after STW yesterday. Precautions: weight bearing restrictions: PWBing LLE with CAM boot, will transfer to full WBAT/brace transition around week 10 pending x-ray update. Fall Risk: low L trimalleolar ankle fracture s/p repair with hardware 01/25/21 per script: "balance training/proprioception , ROM/stretching, strengthening/stabiliza tion, joint mobilization, pain reduction, edema control, gait training, HEP, TENS, compression stockings/dressing, functional progression" Now partial WBAT with LLE in CAM, [...] code time is 48 minutes. Therapeutic exercise (68489): timed minutes 33, units 2 . 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 Manual Therapy (01332): timed minutes 15, units 1 . PROM into DF 10" x 5 STM/ to plantar fascia ASTM (A, if needed). Provided today: education . 04/02/21 Handout given for L ankle PRE's (more content not included)... Normal [employer] PT Progress Noteon 1 PT Progress Note Therapy Diagnosis Assessed Left ankle pain (719.47) (M25.572) Plan Goals: Goals set and discussed today. Pt will demonstrate independence and compliance with HEP and self management, by week 2 Activity Limitation: Increase LEFS to 60 or better for improved QOL, by week 6 Balance: SLS x 10" L for decreased fall risk, by week [...] 4 POC 12/22 supervising PT [facility] [place] [facility] Subjective Patient reports:. Patient denied L ankle pain pretreatment. Patient told this therapist at last session that the did not want her to do any ankle circles for ROM. Her evaluating therapist called and spoke to studio receptionist approximately 5 min prior to patient's appointment and studio receptionist read notes that said progress ROM as tolerated with no restrictions noted. Patient not comfortable with this stating the told her she was not suppose to do [place] motions. Home program performing as directed: Yes. Precautions: weight bearing restrictions: PWBing LLE with CAM boot, will transfer to full WBAT/brace transition around week 10 pending x-ray update. Fall Risk: low L trimalleolar ankle fracture s/p repair with hardware 01/25/21 per script: "balance training/proprioception , ROM/stretching, strengthening/stabiliza tion, joint mobilization, pain reduction, edema control, gait training, HEP, TENS, compression stockings/dressing, functional progression" Now partial WBAT with LLE in CAM, [...] code time is 60 minutes. Therapeutic exercise (96378): timed minutes 40, units 3 . - [...] 10, inv/emerita (more content not included)... Normal [employer] PT Progress Noteon 1 PT Progress Note Therapy Diagnosis Assessed Left ankle pain (719.47) (M25.572) Plan Goals: Goals set and discussed today. Pt will demonstrate independence and compliance with HEP and self management, by week 2 Activity Limitation: Increase LEFS to 60 or better for improved QOL, by week 6 Balance: SLS x 10" L for decreased fall risk, by week [...] 3 POC 11/21 supervising PT [facility] [place] [facility] Subjective Patient reports:. Patient reports [...] s/p repair with hardware 01/25/21 per script: "balance training/proprioception , ROM/stretching, strengthening/stabiliza tion, joint mobilization, pain reduction, edema control, gait training, HEP, TENS, compression stockings/dressing, functional progression" Now partial WBAT with LLE in CAM, [...] code time is 40 minutes. Therapeutic exercise (49271): timed minutes 40, units 3 . practice lateral weight shifting in parallel bars with CAM boot L to 120 lbs wb'ing x 10 EO, x10 EO fwd with R foot on green step (pt has permission to be 75% WBing) L ankle AROM PF/DF 2 x 10, inv/eversion 2 x 10 DF stretch with purple flexband 10" x10 (N) INV/EV stretch with purple flexband 5" x10 (N) L ankle PRE: PF, orange band 2x10 (N) - add to HEP next DF/ INV/ EV peach band 2x10 (N)- add to HEP next towel cruncehs 2x10 (N) Seated fitter board w/ 2.5" insert: PF/DR 2 x10, INV/EV 2x10 (N) adjusted wrist stucco worker height on crutches, (X) pt education on definition of partial WBAT (X) . Manual Therapy (01239): timed minutes 3, units 0 . PROM into DF 5" x10 STM/IASTM to plantar fascia (A). 'Scores and Scales' (more content not included)... Normal [employer] Therapy Communicationon 03-09 Therapy Communication No report was sent Normal [employer] [facility] PT Progress Noteon PT Progress Note Therapy Diagnosis Assessed Left ankle pain (719.47) (M25.572) Plan Goals: Goals set and discussed today. Pt will demonstrate independence and compliance with HEP and self management, by week 2 Activity Limitation: Increase LEFS to 60 or better for improved QOL, by week 6 Balance: SLS x 10" L for decreased fall risk, by week [...] important to know Initial Fall Risk Screening: OJHANNA has fallen in the last 6 months. [...] 2 POC 10/24 supervising PT [facility] [place] [facility] Subjective Patient reports:. denies pain upon arrival, still having dificulty with WBing. Home program performing as directed: Yes. Precautions: weight bearing restrictions: PWBing LLE with CAM boot, will transfer to full WBAT/brace transition around week 10 pending x-ray update. Fall Risk: low L trimalleolar ankle fracture s/p repair with hardware 01/25/21 per script: "balance training/proprioception , ROM/stretching, strengthening/stabiliza tion, joint mobilization, pain reduction, edema control, gait training, HEP, TENS, compression stockings/dressing, functional progression" Now partial WBAT with LLE in CAM, [...] code time is 40 minutes. Therapeutic exercise (81324): timed minutes 40, units 3 . adjusted wrist stucco worker height on crutches, pt education on [...] Scales' Signatures Electronically signed by : Antony Tian FOOD SUPERVISOR; Apr 03 2021 1:36PM EST (Author) Electronically signed by : Nori Osborn PT; Apr 05 2021 8:41AM EST Normal [employer] PT Initial Evaluationon 07 PT Initial Evaluation Therapy Diagnosis Assessed Left ankle pain (719.47) (M25.572) Plan of Care Goals: Goals set and discussed today. Pt will demonstrate independence and compliance with HEP and self management, by week 2 Activity Limitation: Increase LEFS to 60 or better for improved QOL, by week 6 Balance: SLS x 10" L for decreased fall risk, by week [...] 1 POC 09/23 supervising PT [facility] [place] [facility] Subjective Current Episode of Functional [...] ankle s (more content not included)... Normal [employer] [facility] Surgical Tissue [place] 08-04 Surgical Tissue Exam Test performed at [place] [address]NAME: JOHANNA DOVE [id number] REQUESTING: MORE GARCIA MDFINAL DIAGNOSIS:A) GASTRIC ANTRUM, BIOPSIES - MILD [...] 08/06/2018 16:07PRINTED: 08/06/2018 Page 1 of 1 [facility] Comment on above: Performed By: #### S URG ####[place] [address] Antinuclear Antibodyon 09-09 Antinuclear Antibody 0.3 U Normal <=1.0 (Negative) [facility] Comment on above: Result Comment: Test Performed by:[place] [id number] Performed By: #### C BCDIF, C-3, C-4, CH50, DNADS, SANDRA, [id number], CARDABS ####Unless otherwise noted, all testing performed by [address] [id number]: [id number] Director: Wenceslao Perez M.D. Beta-2 Glycoprotein 1, IgAon 09-09-2017 Beta-2 Glycoprotein 1, IgA < 9.4 Normal <15.0 (Negative) [facility] Comment on above: Result Comment: Test Performed by:[place] [address] Performed By: #### C BCDIF, C-3, C-4, CH50, DNADS, SANDRA, [id number], CARDABS ####Unless otherwise noted, all testing performed by [address] [id number]: [id number] Director: Wenceslao Perez M.D. C-3 Complementon 09-09-2017 C-3 Complement 131.9 mg/dL Normal 73.0-183.0 [facility] Comment on above: Result Comment: Test Performed by Laboratory [address] [place] [address] Performed By: #### C BCDIF, C-3, C-4, CH50, DNADS, SANDRA, [id number], CARDABS ####Unless otherwise noted, all testing performed by [address] [phone]: [id number] Director: Wenceslao Perez M.D. C-4 Complementon 09-09-2017 C-4 Complement 28.3 mg/dL Normal 16.0-47.0 [facility] Comment on above: Result Comment: Test Performed by Laboratory [address] [place] [address] Performed By: #### C BCDIF, C-3, C-4, CH50, DNADS, SANDRA, [id number], CARDABS ####Unless otherwise noted, all testing performed by [address] [phone]: [id number] Director: Wenceslao Perez M.D. CBC and Differentialon 09-09 Basophils 0.4 % Invalid Interpretation Code [facility] Basophils 0.0 K/mcL Invalid Interpretation Code 0 - 0.2 [facility] Eosinophils 0.3 K/mcL Invalid Interpretation Code 0 - 0.5 [facility] Erythrocytes (RBC) 4.17 M/mcL Invalid Interpretation Code 3.7 - 5.0 [facility] Hematocrit (HCT) 38.7 % Normal 34.4-44.8 [facility] Comment on above: Performed By: #### C BCDIF, C-3, C-4, CH50, DNADS, SANDRA, [id number], CARDABS ####Unless otherwise noted, all testing performed by [address] [phone]: [id number] Director: Wenceslao Perez M.D. Hemoglobin (HGB) 13.1 g/dL Normal 11.6-15.4 [facility] Comment on above: Performed By: #### C BCDIF, C-3, C-4, CH50, DNADS, SANDRA, [id number], CARDABS ####Unless otherwise noted, all testing performed by [address] [id number]: [id number] Director: Wenceslao Perez M.D. Lymphocytes 2.7 K/mcL Invalid Interpretation Code 1.0 - 3.7 [facility] MCH 31.3 pg Normal 27.9-33.9 [facility] Comment on above: Performed By: #### C BCDIF, C-3, C-4, CH50, DNADS, SANDRA, [id number], CARDABS ####Unless otherwise noted, all testing performed by [address] [id number]: [id number] Director: Wenceslao Perez M.D. MCHC 33.8 g/dL Normal 33.1-35.1 [facility] Comment on above: Performed By: #### C BCDIF, C-3, C-4, CH50, DNADS, SANDRA, [id number], CARDABS ####Unless otherwise noted, all testing performed by [address] [phone]: [id number] Director: Wenceslao Perez M.D. MCV 92.7 fL Normal 82.6-98.9 [facility] Comment on above: Performed By: #### C BCDIF, C-3, C-4, CH50, DNADS, SANDRA, [id number], CARDABS ####Unless otherwise noted, all testing performed by [address] [phone]: [id number] Director: Wenceslao Perez M.D. Monocytes 0.3 K/mcL Invalid Interpretation Code 0.1 - 0.6 [facility] Neutrophils 2.6 K/mcL Invalid Interpretation Code 1.2 - 6.9 [facility] Platelet mean volume (PMV) 9 fL Invalid Interpretation Code 7.0 - 10.6 [facility] Platelets 255 K/mcL Invalid Interpretation Code 162 - 402 [facility] RDW-CA 12.9 % Normal 10.0-14.4 [facility] Comment on above: Performed By: #### C BCDIF, C-3, C-4, CH50, DNADS, SANDRA, [id number], CARDABS ####Unless otherwise noted, all testing performed by [address] [phone]: [id number] Director: Wenceslao Perez M.D. Segmented Neut 43.7 % Invalid Interpretation Code [facility] T8 suppressor/100 cells 5.1 10*3/uL Invalid Interpretation Code [facility] T8 suppressor/100 cells 45.2 10*3/uL Invalid Interpretation Code [facility] T8 suppressor/100 cells 5.6 10*3/uL Invalid Interpretation Code [facility] WBC (Leukocytes) 5.9 K/mcL Invalid Interpretation Code 3.4 - 10.6 [facility] CBC with Diffon 09-09-2017 Basophils Auto #/vol (Bld) 0.0 K/mcL Normal 0-0.2 [facility] Comment on above: Performed By: #### C BCDIF, C-3, C-4, CH50, DNADS, SANDRA, [id number], CARDABS ####Unless otherwise noted, all testing performed by [address] [phone]: [id number] Director: Wenceslao Perez M.D. Basophils/100 WBC Auto (Bld) 0.4 % Normal [facility] Comment on above: Performed By: #### C BCDIF, C-3, C-4, CH50, DNADS, SANDRA, [id number], CARDABS ####Unless otherwise noted, all testing performed by [address] [phone]: [id number] Director: Wenceslao Chris, M.D. Eosinophils 0.3 K/mcL Normal 0-0.5 [facility] Comment on above: Performed By: #### C BCDIF, C-3, C-4, CH50, DNADS, SANDRA, [id number], CARDABS ####Unless otherwise noted, all testing performed by [address] [id number]: [id number] Director: Wenceslao Perez M.D. Eosinophils/100 leukocytes 5.1 % Normal [facility] Comment on above: Performed By: #### C BCDIF, C-3, C-4, CH50, DNADS, SANDRA, [id number], CARDABS ####Unless otherwise noted, all testing performed by [address] [id number]: [id number] Director: Wenceslao Perez M.D. Erythrocytes (RBC) 4.17 M/mcL Normal 3.7-5.[address] [facility] Comment on above: Performed By: #### C BCDIF, C-3, C-4, CH50, DNADS, SANDRA, [id number], CARDABS ####Unless otherwise noted, all testing performed by [address] [id number]: [id number] Director: Wenceslao Perez M.D. Lymphocytes 2.7 K/mcL Normal 1.0-3.7 [facility] Comment on above: Performed By: #### C BCDIF, C-3, C-4, CH50, DNADS, SANDRA, [id number], CARDABS ####Unless otherwise noted, all testing performed by [address] [id number]: [id number] Director: Wenceslao Perez M.D. Lymphocytes/100 leukocytes 45.2 % Normal [facility] Comment on above: Performed By: #### C BCDIF, C-3, C-4, CH50, DNADS, SANDRA, [id number], CARDABS ####Unless otherwise noted, all testing performed by [place] [id number]: [id number] Director: Wenceslao Perez M.D. Monocytes 0.3 K/mcL Normal 0.1-0.6 [facility] Comment on above: Performed By: #### C BCDIF, C-3, C-4, CH50, DNADS, SANDRA, [id number], CARDABS ####Unless otherwise noted, all testing performed by [place] [phone]: [id number] Director: Wenceslao Perez M.D. Monocytes/100 leukocytes 5.6 % Normal [facility] Comment on above: Performed By: #### C BCDIF, C-3, C-4, CH50, DNADS, SANDRA, [id number], CARDABS ####Unless otherwise noted, all testing performed by [address] [id number]: [id number] Director: Wenceslao Perez M.D. Neutrophils 2.6 K/mcL Normal 1.2-6.9 [facility] Comment on above: Performed By: #### C BCDIF, C-3, C-4, CH50, DNADS, SANDRA, [id number], CARDABS ####Unless otherwise noted, all testing performed by [place] [phone]: [id number] Director: Wenceslao Perez M.D. Platelet mean volume (PMV) 9.0 fL Normal 7.0-10.6 [facility] Comment on above: Performed By: #### C BCDIF, C-3, C-4, CH50, DNADS, SANDRA, [id number], CARDABS ####Unless otherwise noted, all testing performed by [address] [id number]: [id number] Director: Wenceslao Perez M.D. Platelets 255 K/mcL Normal 162-402 [facility] Comment on above: Performed By: #### C BCDIF, C-3, C-4, CH50, DNADS, SANDRA, [id number], CARDABS ####Unless otherwise noted, all testing performed by [address] [id number]: [id number] Director: Wenceslao Perez M.D. Segmented Neut % 43.7 % Normal [facility] Comment on above: Performed By: #### C BCDIF, C-3, C-4, CH50, DNADS, SANDRA, [id number], CARDABS ####Unless otherwise noted, all testing performed by [address] [id number]: [id number] Director: Wenceslao Perez M.D. WBC (Leukocytes) 5.9 K/mcL Normal 3.4-10.6 [facility] Comment on above: Performed By: #### C BCDIF, C-3, C-4, CH50, DNADS, SANDRA, [id number], CARDABS ####Unless otherwise noted, all testing performed by [place] [id number]: [id number] Director: Wenceslao Perez M.D. CH50 (Complement Total)on CH50 (Complement Total) 61 U/mL Normal 30 - 75 [facility] Comment on above: Result Comment: Test Performed by:[place] [id number] Performed By: #### C BCDIF, C-3, C-4, CH50, DNADS, SANDRA, [id number], CARDABS ####Unless otherwise noted, all testing performed by [address] [id number]: [id number] Director: Wenceslao Perez M.D. Cardiolipin Autoanitbodieson 09-09-2017 Cardiolipin IgG < 9 Normal 0-15 [facility] Comment on above: Performed By: #### C BCDIF, C-3, C-4, CH50, DNADS, SANDRA, [id number], CARDABS ####Unless otherwise noted, all testing performed by [address] [id number]: [id number] Director: Wenceslao Perez M.D. Cardiolipin, IgA < 9 Normal 0-15 [facility] Comment on above: Result Comment: Test performed by:[address] [id number] [place] [address] Performed By: #### C BCDIF, C-3, C-4, CH50, DNADS, SANDRA, [id number], CARDABS ####Unless otherwise noted, all testing performed by [address] [id number]: [id number] Director: Wenceslao Perez M.D. Cardiolipin, IgM < 9 Normal 0-15 [facility] Comment on above: Performed By: #### C BCDIF, C-3, C-4, CH50, DNADS, SANDRA, [id number], CARDABS ####Unless otherwise noted, all testing performed by [address] [id number]: [id number] Director: Wenceslao Perez M.D. DNA Double Stranded(dsDNA)Ab on 09-09-2017 DNA Double Stranded(dsDNA)Ab < 10 Normal <10 [facility] Comment on above: Result Comment: [place] [address] Performed By: #### C BCDIF, C-3, C-4, CH50, DNADS, SANDRA, [id number], CARDABS ####Unless otherwise noted, all testing performed by [address] [id number]: [id number] Director: Wenceslao Perez M.D. MANNIE Antibodieson 09-09-2017 MANNIE Antibodies 4 Units Normal 0-19 [facility] Comment on above: Result Comment: THE MANNIE Screen tests for SSA,SSB,SM,SM/DIAGNOSTIC TECHNICIAN,SCL-70, AND JO1.Reference Ranges:<20 Units = [id number] Units = Borderline>25 Units = [place] [address] Performed By: #### E NAAB ####Unless otherwise noted, all testing performed by [address] [id number]: [id number] Director: Wenceslao Chris, M.D. HAND BILATERAL, 2 VIEWSon Bilirubin (direct) Final ReportAccession No: [id number] Performed: Sep 09 2017 2:04PMExamination: HAND [...] DENI CASTRO D.O.Trans: apope : cc: Normal [facility] OCT MACULA CIRRUS OU (BOTH E YES) [facility] Vital Signs Date Time Vital Sign Value Performing Clinician Facility 05-17-2025 10:29-0400 Body height 172.[address] Margarita Meza DO Work Phone: [facility] 03-16-2025 07:50-0400 Body mass index (BMI) [Ratio] 28.1 kg/m2 Dr. Margarita Meza DO Work Phone: [facility] 03-16-2025 07:50-0400 Body weight 83.[address] Margarita Meza DO Work Phone: [facility] 03-16-2025 07:50-0400 Diastolic blood pressure 71 mm[Hg] Dr. Margarita Meza DO Work Phone: [facility] 03-16-2025 07:50-0400 Heart rate 70 /min Dr. Margarita Meza DO Work Phone: [facility] 03-16-2025 07:50-0400 Respiratory rate 18 /min Dr. Margarita Meza DO Work Phone: [facility] 03-16-2025 07:50-0400 SaO2% (BldA) [Mass fraction] 97 % Dr. Margarita Meza DO Work Phone: [facility] 03-16-2025 07:50-0400 Systolic blood pressure 113 mm[Hg] Dr. Margarita eMza DO Work Phone: [facility] 12-08-2024 15:01-0400 Body height 172.[address] Margarita Meza DO Work Phone: [facility] 12-08-2024 15:01-0400 Body mass index (BMI) [Ratio] 32.8 kg/m2 Dr. Margarita Meza DO Work Phone: [facility] 12-08-2024 15:01-0400 Body weight 97.[address] Margarita Meza DO Work Phone: [facility] 12-08-2024 15:01-0400 Diastolic blood pressure 84 mm[Hg] Dr. Margarita Meza DO Work Phone: [facility] 12-08-2024 15:01-0400 Systolic blood pressure 136 mm[Hg] Dr. Margarita Meza DO Work Phone: [facility] 09-23-2023 13:55-0500 Body height 172.[address] Margarita Meza Work Phone: [facility] 09-23-2023 13:52-0500 Body mass index (BMI) [Ratio] 33.4 kg/m2 Dr. Margarita Meza Work Phone: [facility] 09-23-2023 13:52-0500 Body weight 99.[address] Margarita Meza Work Phone: [facility] 09-23-2023 13:52-0500 Diastolic blood pressure 78 mm[Hg] Dr. Margarita Meza Work Phone: [facility] 09-23-2023 13:52-0500 Heart rate 62 /min Dr. Margarita Meza Work Phone: [facility] 09-23-2023 13:52-0500 Respiratory rate 18 /min Dr. Margarita Meza Work Phone: [facility] 09-23-2023 13:52-0500 SaO2% (BldA) [Mass fraction] 95 % Dr. Margarita Meza Work Phone: [facility] 09-23-2023 13:52-0500 Systolic blood pressure 157 mm[Hg] Dr. Margarita Meza Work Phone: [facility] 07-24-2022 15:52-0500 Body height 172.[address] Margarita Meza Work Phone: [facility] 07-24-2022 15:52-0500 Body mass index (BMI) [Ratio] 31.6 kg/m2 Dr. Margarita Meza Work Phone: [facility] 07-24-2022 15:52-0500 Body weight 94.[address] Margarita Meza Work Phone: [facility] 07-24-2022 15:52-0500 Diastolic blood pressure 80 mm[Hg] Dr. Margarita Meza Work Phone: [facility] 07-24-2022 15:52-0500 Heart rate 67 /min Dr. Margarita Meza Work Phone: [facility] 07-24-2022 15:52-0500 Respiratory rate 22 /min Dr. Margarita Meza Work Phone: [facility] 07-24-2022 15:52-0500 Systolic blood pressure 135 mm[Hg] Dr. Margarita Meza Work Phone: [facility] 07-15-2022 10:03-0500 Body temperature 97.7 [degF] Dr. Margarita Meza Work Phone: [facility] 07-15-2022 10:03-0500 Diastolic blood pressure 65 mm[Hg] Dr. Margarita Meza Work Phone: [facility] 07-15-2022 10:03-0500 Heart rate 63 /min Dr. Margarita Meza Work Phone: [facility] 07-15-2022 10:03-0500 Respiratory rate 16 /min Dr. Margarita Meza Work Phone: [facility] 07-15-2022 10:03-0500 SaO2% (BldA) [Mass fraction] 96 % Dr. Margarita Meza Work Phone: [facility] 07-15-2022 10:03-0500 Systolic blood pressure 130 mm[Hg] Dr. Margarita Meza Work Phone: [facility] 07-15-2022 07:56-0500 Body mass index (BMI) [Ratio] 30.4 kg/m2 Dr. Margarita Meza Work Phone: [facility] 07-15-2022 07:56-0500 Body weight 90.[address] Margarita Meza Work Phone: [facility] 06-21-2022 08:59-0400 Body mass index (BMI) [Ratio] 31.3 kg/m2 Dr. Margarita Meza Work Phone: [facility] 06-21-2022 08:59-0400 Body weight 93.[address] Margarita Meza Work Phone: [facility] 09-09-2017 13:01-0500 BMI (Body Mass Index) 30.24 kg/m2 Yann Gloria Work Phone: 09-09-2017 13:01-0500 BP Diastolic 72 mm[Hg] Yann Gloria Work Phone: 09-09-2017 13:01-0500 BP Systolic 120 mm[Hg] Yann Gloria Work Phone: 09-09-2017 13:01-0500 Height 172.7 cm Yann Gloria Work Phone: 09-09-2017 13:01-0500 Pulse (Heart Rate) 66 /min Yann Gloria Work Phone: 09-09-2017 13:01-0500 Weight 90.22 kg Yann Gloria Work Phone: Encounters Encounter Date Encounter Type Care Provider Facility Start: 05-17-2025 End: 05-17-[address] Brendan Blanton MD -[facility] Start: 05-17-2025 End: 05-17-[address] Margarita Meza DO Work Phone: [facility] Start: 03-21-2025 End: 03-21-2025 ambulatory MARGARITA MEDINA [facility] Start: 03-16-2025 Encounter for preprocedural laboratory examination Rodtari Wilson [facility] Start: 03-16-2025 Encounter for other preprocedural examination Leighton Graham [facility] Start: 03-16-2025 End: 03-16-[address] Leighton Graham MD [facility] Work Phone: Start: 03-16-2025 End: 03-16-[address] Leighton Graham MD [facility] Start: 03-16-2025 End: 03-16-[address] Margarita Meza DO Work Phone: [facility] Start: 03-10-2025 End: 03-10-[address] Margarita Meza DO Work Phone: -Laboratory Start: 03-10-2025 End: 03-10-[address] Rod Wilson DPM -Laboratory Work Phone: Start: 03-10-2025 End: 03-10-2025 ambulatory Rod Wilson Facility:[facility] Start: 02-14-2025 End: 02-14-2025 Patient encounter procedure Denise Pelaez OD Work Phone: Optometry Comment on above: PVD (posterior vitre ous detachment), bilateral (Primary Dx); Vitreous floaters, bilateral; Age-related nuclear cataract, bilateral; Myopia, bilateral; Regular astigmatism, bilateral; Presbyopia Start: 02-14-2025 End: 02-14-2025 ambulatory DENISE PELAEZ Facility:[facility] Start: 01-17-2025 End: 01-17-[address] Margarita Meza DO Work Phone: [facility] Work Phone: Start: 01-17-2025 End: 01-17-[address] Mell Roman DO -Outpatient Breast Imaging Work Phone: Start: 01-17-2025 End: 01-17-2025 ambulatory Margarita Meza Facility:[facility] Start: 12-21-2024 End: 12-21-[address] Margarita Meza DO Work Phone: [facility] Work Phone: Start: 12-21-2024 End: 12-21-[address] Margarita Meza DO -Ultrasound, [facility] Work Phone: Start: 12-21-2024 End: 12-21-2024 ambulatory Margarita Meza Facility:[facility] Start: 12-08-2024 End: 12-08-[address] Margarita Meza DO Work Phone: [facility] Work Phone: Start: 12-08-2024 End: 12-08-2024 Patient encounter procedure Danielle MELISSAC -Laboratory, Specimen Work Phone: Start: 12-08-2024 End: 12-08-2024 Patient encounter procedure Danielle Collins [employer]CH[employer]IC-C -[facility] Work Phone: Start: 12-08-2024 End: 12-08-2024 ambulatory Danielle Dixon [employer]CH[employer] Facility:[facility] Start: 12-08-2024 End: 12-08-2024 ambulatory Danielle Collins [employer]ACH[employer] MECHANIC Facility:[facility] Start: 11-29-2023 End: 11-29-[address] Margarita Meza Work Phone: [facility] Work Phone: Start: 11-29-2023 End: 11-29-[address] Margarita Meza Work Phone: [facility]-Laboratory Work Phone: Start: 10-06-2023 End: 10-06-[address] Margarita Meza Work Phone: [facility]-Laboratory Work Phone: Start: 09-23-2023 End: 09-23-[address] Margarita Meza Work Phone: [facility] Work Phone: Start: 09-26-2022 End: 09-26-[address] Margarita Meza Work Phone: [facility] Work Phone: Start: 09-26-2022 End: 09-26-[address] Margarita Meza Work Phone: [facility] Start: 08-13-2022 Non-patient / Non-visit Dr. Coral Meza Work Phone: [facility] Start: 08-13-2022 End: 08-13-[address] Margarita Meza Work Phone: [facility] Work Phone: Start: 08-13-2022 End: 08-13-[address] Margarita Meza Work Phone: [facility]-Cardiovascular Services Start: 07-30-2022 End: 07-30-2022 Patient encounter procedure Denise Pelaez OD Work Phone: Ophthalmology Comment on above: Posterior vitreous d etachment of right eye (Primary Dx); Vitreous floaters of both eyes; Dry eye syndrome of both eyes; Nuclear sclerotic cataract of both eyes Start: 07-24-2022 End: 07-24-[address] Margarita Meza Work Phone: [facility] Start: 07-24-2022 End: 07-24-[address] Margarita Meza Work Phone: [facility] Work Phone: Start: 07-24-2022 End: 07-24-[address] Margarita Meza Work Phone: [facility]-Outpatient Breast Imaging Start: 07-20-2022 End: 07-20-[address] Margarita Meza Work Phone: [facility] Work Phone: Start: 07-20-2022 End: 07-20-[address] Margarita Meza Work Phone: [facility]-Laboratory Start: 07-15-2022 Non-patient / Non-visit Dr. Coral Meza Work Phone: [facility] Start: 07-15-2022 End: 07-15-2022 Admission to same day surgery center Dr. Margarita Meza Work Phone: [facility]-Endoscopy Start: 06-21-2022 Non-patient / Non-visit Dr. Coral Meza Work Phone: [facility] Start: 09-10-2021 Patient encounter procedure [facility] Start: 07-05-2021 Patient encounter procedure [facility]ita Godoy Malbhargavi [facility] Work Phone: Start: 06-27-2021 Patient encounter procedure Margarita Godoy Malbhargavi [facility] Start: 06-20-2021 Patient encounter procedure Margarita Godoy Malbhargavi [facility] Start: 06-13-2021 Patient encounter procedure Margarita Godoy Malbhargavi [facility] Start: 06-06-2021 Patient encounter procedure [facility] Start: 05-30-2021 Patient encounter procedure [facility] Start: 05-17-2021 Patient encounter procedure [facility] Start: 05-09-2021 Patient encounter procedure Margarita A Malys [facility] Start: 05-09-2021 PTFUADULT4, Provider : Kisha Fernandez, Status: Pen, Time: 11:30 AM Margarita Godoy Malys [facility] Start: 05-07-2021 Patient encounter procedure [facility]ita A [facility]bhargavi [facility] Start: 05-02-2021 PTFUADULT4, Provider : Kisha Fernandez, Status: Pen, Time: 11:30 AM Margarita Walt Malys [facility] Start: 04-30-2021 Patient encounter procedure Margarita A Malbhargavi [facility] Start: 04-25-2021 Patient encounter procedure Margarita A Malbhargavi [facility] Start: 04-25-2021 PTFUADULT4, Provider : Kisha Fernandez, Status: Pen, Time: 11:30 AM Margarita A Malys Work Phone: [facility] Work Phone: Start: 04-23-2021 Patient encounter procedure Margarita A Malbhargavi [facility] Start: 04-23-2021 PTFUADULT4, Provider : Kisha Fernandez, Status: Pen, Time: 11:30 AM Margarita Walt Malys [facility] Start: 04-20-2021 Patient encounter procedure Margarita Walt Malys [facility] Start: 04-16-2021 Patient encounter procedure Margarita A Malys Work Phone: [facility] Work Phone: Start: 04-11-2021 Patient encounter procedure Margarita Meza Work Phone: [facility] Work Phone: Start: 04-11-2021 PTFUADULT4, Provider : Denise Dee, Status: Pen, Time: 11:30 AM Margarita Godoy Malbhargavi Work Phone: [facility] Work Phone: Start: 04-09-2021 Patient encounter procedure Margarita Meza Work Phone: [facility] Work Phone: Start: 04-04-2021 PTFUADULT4, Provider : Kisha Fernandez, Status: Pen, Time: 11:30 AM Margarita Meza Work Phone: [facility] Work Phone: Start: 04-02-2021 Patient encounter procedure Margarita Meza Work Phone: [facility] Work Phone: Start: 03-30-2021 Patient encounter procedure Margarita Godoy Malbhargavi Work Phone: [facility] Work Phone: Start: 03-27-2021 Patient encounter procedure Margarita A Malbhargavi Work Phone: [facility] Work Phone: Start: 03-22-2021 Patient encounter procedure Margarita A Malbhargavi Work Phone: [facility] Work Phone: Start: 12-01-2020 End: 12-01-2020 Patient encounter procedure MARTHA BALL [facility] Start: 12-01-2020 End: 12-01-2020 Patient encounter procedure Denise Hessrosalba Ramesh Work Phone: [facility] Start: 11-09-2020 End: 11-09-2020 Patient encounter procedure MARGARITA MEZA [facility] Start: 11-09-2020 End: 11-09-2020 Patient encounter procedure Gabi Long [facility] Start: 06-24-2019 Patient encounter procedure Felicia Medellin [facility] Work Phone: Start: 06-22-2019 Patient encounter procedure Renetta Waite [facility] Work Phone: Start: 06-18-2019 Patient encounter procedure Renetta Waite [facility] Work Phone: Start: 08-04-2018 End: 08-04-2018 Patient encounter procedure MORE GARCIA [facility] Start: 08-04-2018 End: 08-04-2018 Patient encounter procedure More Garcia Facility:[facility] Start: 07-22-2018 End: 10-12-2018 Patient encounter procedure Deni Ballard Facility:[facility] Start: 07-22-2018 Patient encounter procedure Facility:[id number] Start: 10-28-2017 End: 11-21-2017 Patient encounter procedure Margarita Meza Facility:[facility] Start: 09-09-2017 End: 09-09-2017 Ambulatory YANN ROCHAR ATUL [facility] Start: 09-09-2017 [facility] Start: 09-09-2017 End: 09-09-2017 Ambulatory Yann Gloria Work Phone: [facility] Start: 09-09-2017 Office/outpatient visit, new, level 4 Yann Gloria Work Phone: Orthopedic and Sports Medicine Start: 09-16-2014 Patient encounter status Denise Pelaez Work Phone: [facility] Work Phone: Procedures Date Procedure Procedure Detail [...] 07-30-2022 Computerized ophthal steven imaging retina Denise Pelaez OD Work Phone: Start: 07-24-2022 Screening mammography Ying Meza Work Phone: Start: 08-04-2018 Colonoscopy Denise phillips OD Work Phone: Start: 11-14-2016 Mammography Denise phillips OD Work Phone: Start: 05-31-2016 Lipid 1996 panel - S harrison or Plasma Denise Pelaez OD Work Phone: Plan of Treatment Date Care Activity Detail Author Start: 2035 RSV Vaccine (1 - 1-d ose 75+ series) RSV Vaccine (1 - 1-dose 75+ series) [facility] Start: 02-20-2026 End: 02-20-2026 Patient encounter procedure 02/20/2026 8:00 AM EDT Office Visit [facility] [address] [id number] Denise Pelaez, OD [address] [place] [address] Eye exam/MMO $10 Optometry Comment on above: Eye exam/MMO $10 Start: 05-17-2025 X-ray of foot, three or more views Foot min 3 Views [facility] Start: 05-09-2025 Influenza vaccination Influenz a Vaccine (Season Ended) [facility] Start: 03-16-2025 Evaluation of diagnostic study results [facility] Start: 05-09-2024 Covid-19 Vaccine ( season) Covid-19 Vaccine ( season) [facility] Start: 08-04-2023 Colonoscopy COLONOSCOPY [facility] Start: 08-04-2023 COLORECTAL CANCER SCREENING COLORECTAL CANCER SCREENING [facility] Start: 08-04-2023 Screening for malign ant neoplasm of colon [facility] Start: 07-15-2022 Colonoscopy w/biopsy single/multiple COLONOSCOPY AND BIOPSY [facility] Start: 07-15-2022 Patient discharge [facility] Start: 05-09-2022 Influenza vaccination INFLUENZA (#1) [facility] Start: 11-08-2021 HPV TESTING HPV TESTING [facility] Start: 11-08-2021 PAP TESTING PAP TESTING [facility] Start: 07-05-2021 NASRA, Provider : Nori Osborn, Status: Pen, Time: 11:45 AM NASRA, Provider: Nori Osborn, Status: Pen, Time: 11:45 AM [facility] Work [facility]: Start: 06-28-2021 NASRA, Provider : Nori Osborn, Status: Pen, Time: 1:30 PM PTRECHLEON, Provider: Nori Osborn, Status: Pen, Time: 1:30 PM [facility] Work Phone: Start: 06-27-2021 PTFUADULT4, Provider : Kisha Fernandez, Status: Pen, Time: 10:45 AM PTFUADULT4, Provider: Kisha Fernandez, Status: Pen, Time: 10:45 AM [facility] Work Phone: Start: 06-20-2021 PTFUADULT4, Provider : Kisha Fernandez, Status: Pen, Time: 11:30 AM PTFUADULT4, Provider: Kisha Fernandez, Status: Pen, Time: 11:30 AM [facility] Work Phone: Start: 06-13-2021 PTFUADULT4, Provider : Kisha Fernandez, Status: Pen, Time: 11:30 AM PTFUADULT4, Provider: Kisha Fernandez, Status: Pen, Time: 11:30 AM [facility] Work Phone: Start: 06-06-2021 PTFUADULT4, Provider : Kisha Fernandez, Status: Pen, Time: 11:30 AM PTFUADULT4, Provider: Kisha Fernanedz, Status: Pen, Time: 11:30 AM [facility] Work Phone: Start: 05-31-2021 Lipid panel Lipid Screening [facility] Start: 05-31-2021 LIPID SCREEN LIPID SCREEN [facility] Start: 05-30-2021 PTFUADULT4, Provider : Kisha Fernandez, Status: Pen, Time: 9:15 AM PTFUADULT4, Provider: Kisha Fernandez, Status: Pen, Time: 9:15 AM [facility] Work Phone: Start: 05-25-2021 PTFUADULT4, Provider : Radha Galan, Status: Pen, Time: 2:00 PM PTFUADULT4, Provider: Radha Galan, Status: Pen, Time: 2:00 PM [facility] Work Phone: Start: 05-17-2021 PTRECHADUL, Provider : Nori Osborn, Status: Pen, Time: 1:30 PM PTRECHADUL, Provider: Nori Osborn, Status: Pen, Time: 1:30 PM Rehab Located [facility] Work Phone: Start: 05-11-2021 PTFUADULT4, Provider : Kisha Fernandez, Status: Pen, Time: 9:15 AM PTFUADULT4, Provider: Kisha Fernandez, Status: Pen, Time: 9:15 AM [facility] Start: 05-09-2021 PTFUADULT4, Provider : Kisha Fernandez, Status: Pen, Time: 11:30 AM PTFUADULT4, Provider: Kisha Fernandez, Status: Pen, Time: 11:30 AM [facility] Work Phone: Start: 05-07-2021 PTFUADULT4, Provider : Kisha Fernandez, Status: Pen, Time: 1:15 PM PTFUADULT4, Provider: Kisha Fernandez, Status: Pen, Time: 1:15 PM [facility] Work Phone: Start: 05-02-2021 PTFUADULT4, Provider : Kisha Fernandez, Status: Pen, Time: 11:30 AM PTFUADULT4, Provider: Kisha Fernandez, Status: Pen, Time: 11:30 AM [facility] Work Phone: Start: 05-02-2021 PTFUADULT4, Provider : Kisha Fernandez, Status: Pen, Time: 10:45 AM PTFUADULT4, Provider: Kisha Fernandez, Status: Pen, Time: 10:45 AM [facility] Start: 04-30-2021 PTFUADULT4, Provider : Kisha Fernandez, Status: Pen, Time: 1:15 PM PTFUADULT4, Provider: Kisha Fernandez, Status: Pen, Time: 1:15 PM [facility] Work [facility] Start: 04-25-2021 PTFUADULT4, Provider : Kisha Fernandez, Status: Pen, Time: 11:30 AM PTFUADULT4, Provider: Kisha Fernandez, Status: Pen, Time: 11:30 AM [facility] Work Phone: Start: 04-23-2021 PTFUADULT4, Provider : Kisha Fernandez, Status: Pen, Time: 1:15 PM PTFUADULT4, Provider: Kisha Fernandez, Status: Pen, Time: 1:15 PM [facility] Work Phone: Start: 04-23-2021 PTFUADULT4, Provider : Kisha Fernandez, Status: Pen, Time: 11:30 AM PTFUADULT4, Provider: Kisha Fernandez, Status: Pen, Time: 11:30 AM [facility] Work Phone: Start: 04-20-2021 PTFUADULT4, Provider : Denise Dee, Status: Pen, Time: 10:45 AM PTFUADULT4, Provider: Denise Dee, Status: Pen, Time: 10:45 AM [facility] Work Phone: Start: 04-18-2021 PTFUADULT4, Provider : Kisha Fernandez, Status: Pen, Time: 11:30 AM PTFUADULT4, Provider: Kisha Fernandez, Status: Pen, Time: 11:30 AM [facility] Work Phone: Start: 04-16-2021 PTFUADULT4, Provider : Kisha Fernandez, Status: Pen, Time: 1:15 PM PTFUADULT4, Provider: Kisha Fernandez, Status: Pen, Time: 1:15 PM [facility] Work Phone: Start: 04-11-2021 PTFUADULT4, Provider : Kisha Fernandez, Status: Pen, Time: 11:30 AM PTFUADULT4, Provider: Kisha Fernandez, Status: Pen, Time: 11:30 AM Rehab [facility] Work Phone: Start: 04-09-2021 PTFUADULT4, Provider : Kisha Fernandez, Status: Pen, Time: 1:15 PM PTFUADULT4, Provider: Kisha Fernandez, Status: Pen, Time: 1:15 PM Rehab Loc[facility] Work Phone: Start: 04-04-2021 PTFUADULT4, Provider : Kisha Fernandez, Status: Pen, Time: 11:30 AM PTFUADULT4, Provider: Kisha Fernandez, Status: Pen, Time: 11:30 AM [facility] Work Phone: Start: 04-02-2021 PTFUADULT4, Provider : Kisha Fernandez, Status: Pen, Time: 1:15 PM PTFUADULT4, Provider: Kisha Fernandez, Status: Pen, Time: 1:15 PM [facility] Work Phone: Start: 03-30-2021 PTFUADULT4, Provider : Kisha Fernandez, Status: Pen, Time: 1:15 PM PTFUADULT4, Provider: Kisha Fernandez, Status: Pen, Time: 1:15 PM [facility] Work Phone: Start: 03-27-2021 PTFUADULT4, Provider : Antony Tian, Status: Pen, Time: 2:45 PM PTFUADULT4, Provider: Antony Tian, Status: Pen, Time: 2:45 PM [facility] Work Phone: Start: 12-01-2020 End: 12-01-2020 Immunization 12/01/2020 Immunization Primary Care Denise Dickson DO [address] [place] [address] [phone] [facility] [place] Covid Vaccine [facility] Start: 11-30-2020 COVID-19 Vaccine (2 of 2 - Pfizer series) COVID-19 Vaccine (2 of 2 - Pfizer series) Start: 05-09-2020 Influenza vaccinatio n given Sequential Influenza Vaccine (#1) Start: 01-25-2020 DIABETES SCREEN DIABETES SCREEN [facility] Start: 01-25-2020 Diabetes Screening Diabetes Screenin g [facility] Start: 11-09-2019 Screening for malign ant neoplasm of cervix Cervical Cancer Screening [facility] Start: 11-14-2017 Mammography MAMMOGRAM [facility] Start: 11-14-2017 Screening for malign ant neoplasm of breast Mammogram Screening [facility] Start: 05-09-2017 Influenza vaccination SEQUENTI AL INFLUENZA VACCINE (#1) Work Phone: Start: 2010 Administration of herpes zoster vaccine Zoster Vaccines (1 of 2) Start: 2010 Pneumococcal Vaccine : 50+ (1 of 1 - PCV) Pneumococcal Vaccine: 50+ (1 of 1 - PCV) [facility] Start: 2010 Screening for malign ant neoplasm of colon Start: 2010 SHINGRIX VACCINE (1 of 2) SHINGRIX VACCINE (1 of 2) [facility] Start: 2005 COLOGUARD (FIT-DNA) COLOGUARD (FIT-D NA) [facility] Start: [address] COLONOGRAPHY [facility] Start: 2005 FECAL OCCULT BLOOD FECAL OCCULT BLOO D [facility] Start: 2005 Screening for malign ant neoplasm of colon [facility] Start: 2005 SIGMOIDOSCOPY SIGMOIDOSCOPY [facility] Start: 1979 Urine microalbumin profile [facility] Start: 1978 ANNUAL PCP TEAM DEC[employer]ER GERMAN DISEASE VISIT ANNUAL PCP TEAM CHRONIC DISEASE VISIT [facility] Start: 1978 BP CONTROLLED (<130/80) BP CON TROLLED (<130/80) [facility] Start: 1978 Hepatitis C antibody , confirmatory test Hepatitis C Screening Start: 1978 HIV SCREENING HIV SCREENING [facility] Start: 1978 HIV screening HIV Screening [facility] Start: 1975 HIV screening HIV Screening [facility] Start: 1972 Adolescent depressio n screening assessment Depression Screening (PHQ9) Start: 1963 History and physical examination, annual for health maintenance Wellness Visit Start: 1960 Screening mammography Mammogram [facility] Start: 1960 HEPATITIS C SCREENING HEPATITIS C SC REENING Work Phone: Start: 1960 Screening colonoscopy COLONOSCOPY [facility] Work Phone: Start: 1960 End: 1960 Screening for malignant neoplasm of cervix PAP SMEAR Work Phone: Start: 1960 End: 1960 Tetanus vaccination Work Phone: End: 09-09-2018 SANDRA SANDRA Routine Abnormal laboratory test result 1 Occurrences starting 09/09/2017 until 09/09/2018 [employer] Phone: End: 09-10-2018 Anti-DNA Double-Stranded Antibody Anti-DNA Double-Stranded Antibody Routine Abnormal laboratory test result 1 Occurrences starting 09/09/2017 until 09/10/2018 [facility] Phone: End: 09-10-2018 Beta-2 Glycoprotein 1 Antibodies, IgG Beta-2 Glycoprotein 1 Antibodies, IgG Routine Abnormal laboratory test result 1 Occurrences starting 09/09/2017 until 09/10/2018 [facility] Work Phone: End: 09-10-2018 Beta-2 Glycoprotein 1 Antibodies, IgM Beta-2 Glycoprotein 1 Antibodies, IgM Routine Abnormal laboratory test result 1 Occurrences starting 09/09/2017 until 09/10/2018 [facility] Phone: End: 09-10-2018 C3 Complement C3 Complement Routine Abnormal laboratory test result 1 Occurrences starting 09/09/2017 until 09/10/2018 [facility] Phone: End: 09-10-2018 C4 Complement C4 Complement Routine Abnormal laboratory test result 1 Occurrences starting 09/09/2017 until 09/10/2018 [employer] Work Phone: End: 09-10-2018 Cardiolipin Antibodies Cardiolipin Antibodies Routine Abnormal laboratory test result 1 Occurrences starting 09/09/2017 until 09/10/2018 [facility] Work Phone: End: 09-10-2018 CBC and Differential CBC and Differential Routine Abnormal laboratory test result 1 Occurrences starting 09/09/2017 until 09/10/2018 [facility] Work Phone: Colonoscopy [facility] Work Phone: Colonoscopy [facility] End: 09-10-2018 Complement, Total Complement, Total Routine Abnormal laboratory test result 1 Occurrences starting 09/09/2017 until 09/10/2018 [facility] Work Phone: End: 09-10-2018 MANNIE Screen (SSA/B,SM,DIAGNOSTIC TECHNICIAN,SCL70,JO1 ) MANNIE Screen (SSA/B,SM,DIAGNOSTIC TECHNICIAN,SCL70,NIKKY 1) Routine Abnormal laboratory test result 1 Occurrences starting 09/09/2017 until 09/10/2018 [facility] Work Phone: Patient referral [facility] Work Phone: [facility] Work Phone: End: 09-09-2018 XR Hand Left 2 Views [facility] Work Phone: End: 09-09-2018 XR Hand Right 2 Views XR Hand Right 2 Views Routine Pain 1 Occurrences starting 09/09/2017 until 09/09/2018 [facility] Work Phone: End: 09-09-2018 XR Wrist Left 2 Views XR Wrist Left 2 Views Routine Pain 1 Occurrences starting 09/09/2017 until 09/09/2018 [facility] Work Phone: End: 09-09-2018 XR Wrist Right 2 Views XR Wrist Right 2 Views Routine Pain 1 Occurrences starting 09/09/2017 until 09/09/2018 [facility] Work Phone: [facility] NEGATED: Highlighted row has been ruled out! Planned Goals not documented [facility] Work Phone: Immunizations Immunization Date Immunization Notes Care Provider Laverne frias 12-01-2020 Pfizer SARS-CoV-2 Vaccination Martha Ball [facility] 11-09-2020 Pfizer SARS-CoV-2 [facility] 06-09-2018 influenza virus vaccine, unspecified formulation Denise Mazariegoser OD Work Phone: [facility] 07-24-2015 influenza, seasonal, injectable Denise Mazariegoser OD Work Phone: [facility] Work Phone: 07-10-2015 influenza virus vaccine, unspecified formulation Denise Mazariegoser OD Work Phone: [facility] Work Phone: Payers Date Payer Category Payer Medicare [id number] 2025 Unknown [id number] 2024 Unknown [id number] 2024 Self-pay [id number] 2019 Private Health Insurance MMO SUP ERMED PPO [id number] 2017 Unknown 2015 Unknown MMO MED MUTUAL S UPERMED PPO [id number] 2015-Present [id number] 2004 Unknown [id number] 1960 Unknown [id number] 2.16.840.1.465313.3.579.2. 356 1960 Unknown [id number] 2.16.840.1.587181.3.579.2. 278 1960 Unknown [id number] 2.16.840.1.567578.3.579.2. 717 1960 Unknown [id number] 2.16.840.1.308960.3.579.2. 717 1960 Unknown [id number] 2.16.840.1.184316.3.579.2. 903 1960 Unknown [id number] 2.16.840.1.950901.3.579.2. 903 1960 Unknown [id number] 2.16.840.1.799320.3.579.2. 651 Unknown [id number] 2.16.840.1.282212.3.579.2. 462 Unknown [id number] 2.16.840.1.454380.3.579.2. 462 Unknown [id number] 2.16.840.1.848885.3.579.2. 462 Unknown [id number] 2.16.840.1.006789.3.579.2. 462 Unknown [id number] 2.16.840.1.732537.3.579.2. 462 Unknown [id number] 2.16.840.1.865792.3.579.2. 462 Unknown [id number] 2.16.840.1.158627.3.579.2. 462 Social History Date Type Detail Facility Start: 09-10-2017 End: 09-23-2023 Tobacco smoking status NHIS Unknown if ever smoked [facility] Start: 1960 Sex Assigned At Not on file Work Phone: Start: 09-09-2017 End: 05-17-2025 Tobacco smoking status NHIS Never smoker [facility] Work Phone: Start: 04-09-2016 End: 09-09-2017 Tobacco use and exposure Never used Start: 09-09-2017 End: 02-14-2025 Alcohol intake Current non-drinker of alcohol (finding) Start: 07-20-2022 End: 07-30-2022 Exposure to SARS-CoV-2 (event) Not sure Start: 01-24-2021 Non-smoker [facility] Start: 1960 Sex Assigned At Female [facility] Start: 12-15-2024 End: 12-25-2024 Sex Female (finding) [facility] Start: 08-13-2020 End: 02-14-2025 History of Social function [facility] Start: 08-13-2020 End: 02-14-2025 Tobacco use panel [facility] National Score (1-100), lower number is lower risk Not on file [facility] NEGATED: Highlighted row [facility] Medical Equipment Procedure Code Equipment Code Equipment [...] 3mm low profile screw FDA Start: 01-25-2021 Gxx-Uo-Q-Kind Implant - [id number] Start: 06-12-2016 Comment on above: Description: 2MM KENNY CKFIX SCREW, TITANIUM Screw Quickfix 2mm Full Thread Blue Titanium 12mm Bone 3 Prong Self Drill - [id number] Start: 06-12-2016 Wire Ilsa .045in Stainless Steel 5.5in Fixation Trocar Smooth Guide - [id number] Start: 06-12-2016 Llu-Uq-U-Kind Implant - [id number] Start: 06-12-2016 Comment on above: Description: 3MM LOW PROFILE SCREW, LOCKING, TITANIUM, CORTICAL Slw-Wy-I-Kind Implant - [id number] Start: 06-12-2016 Comment on above: Description: 3MM LOW PROFILE SCREW, LOCKING, TITANIUM, CORTICAL Ykm-Ez-L-Kind Implant - [id number] Start: 06-12-2016 Comment on above: Description: LOW PRO FILE MTP PLATE, TITANIUM, STRAIGHT - SHORT Pcr-Zz-T-Kind Implant - [id number] Start: 06-12-2016 Comment on above: Description: K-WIRE check for [employer] Screw 3mm Full Thread T10 Hexalobe Titanium 14mm Bone Self Drill Solid Lock - [id number] Start: 06-12-2016 Screw 3mm T10 Hexalobe Full Thread Titanium 18mm Bone Self Drill Solid Lock - [id number] Start: 06-12-2016 Comment on above: Description: 3MM LOW PROFILE SCREW, LOCKING, TITANIUM, CORTICAL Screw Low Profil e Screws 3mm Full Thread T10 Hexalobe Titanium 16mm Bone - [id number] Start: 06-12-2016 Comment on above: Description: 3MM LOW PROFILE, SCREW, TITANIUM, CORTICAL Screw Quickfix 3mm T10 Partial Thread Hexalobe Low Profile Titanium 32mm - [id number] Start: 06-12-2016 Comment on above: Description: QUICKFI X SCREW, TITANIUM, PARTIALLY THREADED, CANCELLOUS Goals Date Patient Goal Desired Activity /State Functional Status Date Assessment Result Facility 04-04-2015 Are you deaf, or do you have serious difficulty hearing No 04/04/2015 4:10 PM Joanne Colon LPN No [facility] 04-04-2015 Are you blind, or do you have serious difficulty seeing, even when wearing glasses No 04/04/2015 4:10 PM Joanne Colon LPN No [facility] 04-04-2015 Do you have serious difficulty walking or climbing stairs Yes 04/04/2015 4:10 PM Joanne Colon LPN Yes [facility] 04-04-2015 Do you have difficul ty dressing or bathing No 04/04/2015 4:10 PM Joanne Colon LPN No [facility] 04-04-2015 Because of a physica l, mental, or emotional condition, do you have difficulty doing errands alone such as visiting a physician's office or shopping No 04/04/2015 4:10 PM Joanne Colon LPN No [facility] NEGATED: Highlighted row Functional performance Functional status health issues are not documented Disease [facility] Work Phone: Mental Status Date Assessment Result Facility 07-15-2022 Cognitive function Voice/Name;To [facility] Work Phone: 04-04-2015 Because of a physical, mental, or emotional condition, do you have serious difficulty concentrating, remembering, or making decisions No 04/04/2015 4:10 PM EDT Joanne Castellon LPN No [facility] NEGATED: Highlighted row Cognitive function [Interpretation] Cognitive status health issues are not documented Disease [facility] Work Phone: Clinical Notes 03-01-2015 to 04-04-2025 Note Date & Type Note Facility 04-04-2025 Note [facility] HISTORY & PHYSICAL NAME ACCOUNT SEX AGE ADMIT DISCHARGE PT MED. RECORD# NUMBER DATE DATE TYPE DERRELL [id number] F 64 03/21/25 2 JOHANNA Ashraf [id number] ROOM: DATE OF : 60 DICTATING PHYSICIAN: Rod Wilson HISTORY OF PRESENT ILLNESS: The patient is known to me from my private office where she has presented for several appointments for foot complications. Most notably she has a chronic ingrown toenail to the left big toe, as well as a painful screw to the left big toe. The patient had a fusion performed for the left first metatarsophalangeal joint remotely. She feels a pointed screw when she walks on the bottom of the foot, so she would like to have that removed. She also wishes for partial permanent nail avulsion of the left hallux lateral nail border. The patient also has pain to the second metatarsophalangeal joint of the right foot. The patient has a mild bunion, but she states she has absolutely no pain with the bunion whatsoever. Offloading, change in shoes, and padding has been utilized to help with the second metatarsal head, which is prominent plantarly, and nothing was successful. We had discussed treatment options including repair of the hallux valgus deformity, but it is a short first metatarsal and we cannot guarantee that would even remove the pain of the second metatarsal head. Also, since the bunion is not painful that is difficult to recommend that surgical intervention. PAST MEDICAL HISTORY: See chart. PLANNED PROCEDURE: 1. Decompression osteotomy right second metatarsal head. 2. Hardware removal of left hallux. 3. Partial permanent nail avulsion of left hallux. SURGEON: Rod Wilson DPM ALLERGIES: No known drug allergies. MEDICATIONS: See chart. IMPRESSION AND PLAN: Risks, complications, and alternative treatments were reviewed in detail and no guarantees were given. Discussed the possibility of recurrence of pain and need for further surgery, as well as failure of procedures and slow healing and nonhealing. Also, reviewed surgical procedure in detail and all questions were answered. A consent was reviewed and signed, and the patient will present to [facility] the morning of March 21, 2025 for outpatient surgical intervention. Page 1 of 2 JOHANNA DOVE History & Physical JOHANNA DOVE :1960 Dictated By: Rod Wilson DPM 03/21/25 06:47 JOB #: [id number] Transcribed By: lico 03/21/25 07:16 Electronically signed by: E-SIGN ROD WILSON 04/04/25 12:09 Update to H&P: [ ] No changes: I have examined the patient and reviewed the H&P and there are no changes. [ ] As previously dictated with the following changes: ____ ____ ____ PHYSICIAN SIGNATURE: TIME: DATE: Page 2 of 2 JOHANNA DOVE History & Physical [facility] 03-16-2025 Evaluation note Diagnosis Onset Date Resolution Cardiac murmur acute March 16, 2025 7:57am Chest pain acute March 16, 2025 7:57am Ectopic cardiac beats acute Ronal 2024 7:57am Pre-op evaluation acute March 7:57am Essential (primary) hypertension chronic March 16, 2025 7 :57am [facility] Work Phone: 1(557) 922-427407-09-2025 Progress [facility] [address] [place] [address]. [address] [place] [address] OFFICE VISIT Date of Service: 03/16/25 MR#: [id number] Acct: [id number] Name: JOHANNA DOVE Rep #: [id number] : 1960 Provider: Dr. Chava Graham MD Age/Sex: 64/F Location: [facility] Status: Signed HPI HPI History of Present Illness Details: Patient is a very pleasant 64-year-old white female who comes in today for monitoring of her cardiovascular status and preop clearance. Patient is scheduled next Friday for a surgical procedure on her foot due to a hammertoe. This is to be done under general anesthesia. Patient reports she has been doing fairly well in her home environment she is able to go up and down a flight of stairs without restrictions. She denies any significant change in her exercise tolerance. She walks about 10,000 steps a day in her job without any significant restrictions. The patient does have a significant family history of coronary disease she was personally cathed in 2018and had normal coronary arteries. The patient carries a history of activity and wound remotely she took Sudafed and had some short runs of paroxysmal atrial fibrillation. She has not had any significant ectopy recently she did have aHolter monitor done September 2019 thiswas primarily normal sinus rhythm she had some premature atrial complexes no evidence of atrial fibrillation she had frequent PVCs. She had a uncomfortable jab inher left upper chest which she has had intermittently for some time and during that monitor it correlated with some of the ectopy. This ectopy was feltto be benign. The patient's last echocardiogram August 2022 showed normal LV function EF of 60% the left atriumwas mildly enlarged it was trivial mitral insufficiency. There was mild tricuspid insufficiency andmild focal aortic valve calcification. The right ventricular systolic pressure was normal at 21. ECG done in the office today shows normal sinus rhythm and is normal a copy was provided for the patient to take for her preanesthesia evaluation. 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 Required: No Accompanied by: Self Is patient in pain?: No Allergies No Known Allergies Allergy (Verified 03/16/25 07:51) Medications ?Medication ?Instructions ?Recorded ?Confirmed ?Type temazepam 15 mg capsule 15 mg PO QHS PRN Insomnia 03/16/25 History simvastatin 20 mg tablet 20 mg PO DAILY 05/25/1806/02 History aspirin 81 mg tablet,delayed 81 mg PO DAILY health remberto ntenance 06/03/18 03/16/25 History release omeprazole 20 mg capsule,delayed 20 mg PO DAILY PRN ge rd 12/20/19 03/16/25 His tory release cetirizine 10 mg tablet (Zyrtec) 10 mg PO DAILY allerg ies 07/24/20 03/16/25 History melatonin 5 mg tablet 5 mg PO HS PRN 07/24/2206/02 History losartan 100 1 tab PO DAILY 01/08/2406/02 History mg-hydrochlorothiazide 25 mg tablet (Hyzaar) clobetasol 0.05 % topical ointment 1 applic topical .C OMPLEX #15 grams 03/14/25 03/16/25 Rx Slender X PO DAILY 03/16/25 03/16/25 H istory XCE LER8 PO DAILY 03/16/25 03/16/25 H istory cholecalciferol (vitamin D3) 1,250 1,250 mcg PO QMONTH PRN 03/16/25 03/16/25 History mcg (50,000 unit) capsule propranolol 60 mg tablet 60 mg PO DAILY PRN Headache 03/16/25 03/16/25 History vitamin B complex (B 1 tab PO DAILY PRN 03/16/25 03/16/25 History Complex-Vitamin B12 tablet) Ejection fraction %: 60 Have you fallen [...] History of breast biopsy Hx of colonoscopy (~07/2022) History of foot surgery Family History Father [...] at home: Yes additional social history: -Marcell ROS Const Const: Negative for fatigue or weakness ENT ENT: Negative for dizziness or balance problems Cardio Chest Pain: No Palpitations: No Edema: Bilateral Muscle aches with walking: None Resp Respiratory: Positive for SOB with activity (walking up stairs); Negative for SOB at rest or SOB orthopnea\\SOB lying down GI GI: Negative nausea, vomiting or heartburn Musc Musc: Negative for muscle weakness or balance problems Neuro Neuro: Positive for lightheadedness (when BP gets low); Negative for dizziness, near syncope, syncope or weakness Endo Endo: Negative for fatigue Cardiology Exam Const Appearance: cooperative, healthy appearing, comfortable, no acute distress and well developed Head Head: normal to inspection Eyes General: appearance normal, both eyes and all related structures Neck Neck: normal visual inspection and no JVD Carotids: Negative bruit Chest Chest inspection: normal inspection of the chest Auscultation: Bilateral: Clear to Auscultation Cardio Rate: regular rate Rhythm: regular rhythm Heart sounds: S1 normal, S2 normal and murmur; Negative rub or gallop Murmur: Grade 2/6, soft, mid systolic and RLSB GI GI: normal to inspection Neuro General: patient alert and patient oriented x3 Extremities Lower Extremity Edema: None: Bilateral Psych Psychological: normal affect Supplemental Info Supplemental Information Labs: LDL Cholesterol 86 mg/dL (0-130) HDL Cholesterol 62 mg/dL (40-) Cholesterol 182 mg/dL (<=200) Triglycerides 75 mg/dL (-199) Diagnostics: Abdomen Ultrasound Pulmonary: No Data to Display Past Visits: Cardiology Visit 03/16/25 Assessment and Plan Assessment and Plan (1) Pre-op evaluation: Status: Acute Plan: Patient comes in today for preop evaluation for general anesthesia for lower extremity surgical intervention. The patient remains active in her home environment she denies any anginal type symptoms. Ectopy hasbeen minimal she denies any syncope or near syncope and her ECG is within normal limits. Given the patient's activity levels I do not feel that further evaluation is indicated. The patientshould be able to tolerate general anesthesia with acceptable risk profile. From a cardiovascular standpoint I feel the patient can proceed with her surgical intervention. (2) Cardiac murmur: Status: Acute Plan: Patient has a soft 2/6 systolic murmur along the right sternal border this has been present for several years and she has noted that it increased when she was . (3) Ectopic cardiac beats: Status: Acute Plan: Patient's last Holter monitor was relatively benign. She did have PVCs and PACsbut no significant runs and no evidence of atrial fibrillation. The patient utilizes propranolol on a as needed basis. The patient is on some homeopathic drops that have assisted her in dropping 30 pounds which is excellent. However it does seem to have thyroid extract in it and I warned her that this could create a problem with increasing her ectopy. (4) Essential (primary) hypertension: Status: Chronic Plan: Patient's blood pressure is well-controlled in the office today 113/71 heart rate is 70 and regularrespirations 18 unlabored. (5) Chest pain: Status: Acute Qualifiers: Chest pain type: unspecified Qualified Code(s): R07.9 - Chest pain, unspecified Plan: Patient's chest discomfort is very atypical for angina. It is sharp and stabbing and historically has been associated with ectopic beats. It is short-lived and not predictable. Orders: Orders 12 Lead EKG performed by [facility] Today R01.1 - Cardiac murmur, unspecified Plan 1. Recommend patient continue current medical therapy. 2. Cautioned her about the weight loss homeopathic therapy as this does seem tohave thyroid extractin it. 3. Recommend the patient proceed with surgical intervention on her foot as tolerated and as plannedby the surgical team. 4. Patient will follow-up in the [place] [facility] on a yearly basis and as needed. Plan Details Additional Comments: Thank you for allowing me to participate in the care of your patient. Please don't hesitate to callif any issues arise. This note was generated using a voice recognition system and there may be incorrect words, spelling, or punctuation that were not noted when reviewing theoffice note prior to saving. Portions of this documentation were copied and pasted from previous office visitnotes to provide a cohesive continuity of the history. The note has been reviewed, edited, and updated, as necessary. Follow Up: 1 Year (With Dr. Graham or RYANNE and as needed) Coding Level of Care Code Off vis,est,level 4 Diagnoses Pre-op evaluation Z01.818 Cardiac murmur R01.1 Ectopic cardiac beats I49.49 Essential (primary) hypertension I10 Chest pain, unspecified type R07.9 Chest pain type: unspecified Coding Level of Care Code Off vis,est,level 4 Diagnoses Pre-op evaluation Z01.818 Cardiac murmur R01.1 Ectopic cardiac beats I49.49 Essential (primary) hypertension I10 Chest pain, unspecified type R07.9 Chest pain type: unspecified Clinical Quality Measures Falls Risk Screening/Assistive Devices Have you fallen in the past year?: No Cardiac Ejection fraction %: 60 03/16/25 0820 s > Date _ Leighton Graham MD Cosigner Signature: Date (if applicable) CC: Dr. Margarita Meza, [facility]06-09-2025 Instructions* Patient Instructions* Denise Pelaez OD - 02/14/2025 8:38 AM EDT ASSESSMENT/PLAN: [...] update. Recommended yearly exams [facility]06-09[facility]2025 NoteHNO ID: [id number] Author: DENISE PELAEZ OD Service: ? Author Type: LEASE EXAMINER Type: Progress Notes Filed: 02/14/2025 08:39 Note [...] with the update. Recommended yearly exams Denise Pelaez, OD I have confirmed and edited as necessary the relevant ophthalmic history, ROS, and the neuro exam findings as obtained by others.[facility] 02-14-2025 History of Present illness Narrative* Denise Pelaez, OD - 02/14/2025 8:36 AM EDT ASSESSMENT/PLAN: 1. PVD (posterior vitreous [...] with the update. Recommended yearly exams Denise Pelaez, OD I have confirmed and edited as necessary the relevant ophthalmic history, ROS, and the neuro exam findings as obtained by others. documented in this encounterUk [facility]04-15-2025 Radiology Diagnostic study note [facility] Imaging Services [address] [place], [place] [id number] Abdomen Complete MR#: [id number] Acct: [id number] Name: JOHANNA DOVE Rep #: [id number] : 1960 F 64 From: Kimberly Mason MD PCP: Dr. Margarita Meza DO Status: REG CLI Study:Abdomen Complete Date of Exam: Exam# [id number] Ordering Dr: Coral Meza sa DO ADDENDUM by Dr. Toby Jasso MD on 12/21/24 at 1108 No addendum needed. Reading Location: [place] [address] 12/21/24 1108 Date cc: Dr. Margarita Meza [...] commonly associated with hepatic steatosis. Correlate with clinicaland laboratory evaluation. 3. Additional description as above. Reading Location: [facility] CC: Dr. Margarita Meza, ~ Climbing Guide: Signed [facility]04-15-2025 Radiology Diagnostic study note [facility] Imaging Services [address], [place] [address] Pelvic w/ Transvaginal MR#: [id number] Acct: [id number] Name: JOHANNA DOVE Rep #: [id number] : 1960 F 64 From: Paolo Jasso MD PCP: Dr. Margarita Meza DO Status: REG CLI Study:Pelvic w/ Transvaginal Date of Exam: 12/21/24 Exam# [id number] Ordering Dr: Danielle Collins AUTOMATIC COIN MACHINE MECHANIC AUTOMATIC COIN MACHINE MECHANIC-C PROCEDURE: PELVIC W/ TRANSVAGINAL REASON FOR EXAM: [...] Heterogeneous appearance of the myometrium. Reading Location: [facility] CC: PERCY Collins; Dr. Margarita Meza, DO ~ Climbing Guide: Signed [facility]04-02-2025 Evaluation note* Diagnosis Onset Date Resolution Status Admit Date Postmenopausal bleeding acute A pril 2024 2:52pm [facility] Work Phone: 1(355) 984-480104-02-2025 Evaluation note* Diagnosis Onset Date Resolution Status Admit Date Postmenopausal bleeding acute A pril 2024 2:52pm Cardiac murmur acute March 16, 2025 7:57am Chest pain acute March 16, 2025 7:57am Ectopic cardiac beats acute Mar 7:57am Pre-op evaluation acute March 7:57am Essential (primary) hypertension chr onic March 16, 2025 7:57am [facility] Work Phone: 1(201) 757-607811-22-2022 Instructions* Patient Instructions* Denise Pelaez, OD - 07/30/2022 4:37 PM EST ASSESSMENT/PLAN: [...] instructed. Recommended yearly exams. documented in this encounter[facility]11-22-2022 History of Present illness Narrative* Denise Pelaez, OD - 07/30/2022 4:35 PM EST ASSESSMENT/PLAN: 1. [...] Monitor as instructed. Recommended yearly exams. Denise Pelaez, OD I have confirmed and edited as necessary the relevant ophthalmic history, ROS, and the neuro exam findings as obtained by others. I have seen and examined this patient. documented in this encounterUk [facility]01-03-2022 NoteDischarge Summary PHYSICAL THERAPY Referral/Discharge Information: Date [...] PT; Sep 10 2021 12:08PM EST (Author) [id number] History of Present illness Narrative* Pt tolerated [...] to treatment: no change in pain. [facility] Work Phone: 1(326) 630-266105-20-2021 History of Present illness Narrative* Patient is [...] range of motion/joint mobility and strength. [facility] Work Phone: 1(407) 249-718405-20-2021 History of Present illness NarrativePt has attended [...] on uneven surfaces without pain, pt has knowledge/skil ls to cont progressing ankle ROM/strengthening and bal independently at home via a progressive HEP,which has been provided. Therefore, at this time skilled PT will be placed on hold for 30 days pending trial of self-management. Should pt elect to resume PT, cont 1x/wk for 8 weeks or 8 visits. [facility] Work Phone: 1(720) 839-697205-20-2021 Reason for visit Narrative* Initial Evaluation . L trimalleolar ankle fracture s/p repair with hardware 01/25/21. * Referred by: Dr. Dillon [facility] Work Phone: 1([phone]) 486-943806-24-2015 History of Past illness Narrative* Problem Noted [...] of this encounter (statuses as of 07/30/2022) [facility]* Diagnosis Onset Date Resolution Status Hx of colonic polyps acute Cardiac murmur acute Ectopic cardiac beats acute Essential (primary) hypertension chronic Pure hypercholesterolemia [facility] Work Phone: Evaluation note* Diagnosis Posterior vitreous detachment of right eye- Primary Vitreous degeneration Vitreous floaters of both eyes Dry eye syndrome of both eyes Nuclear sclerotic cataract of both eyes Senile nuclear sclerosis documented in this encounter [facility]* Diagnosis Onset Date Resolution Status Cardiac murmur acute Chest pain acute Ectopic cardiac beats acute Essential (primary) hypertension chronic Pure hypercholesterolemia [facility] Work Phone: Evaluation note* Diagnosis Encounter to [...] astigmatism, bilateral Presbyopia documented in this encounter [facility] of Present [facility] Narrative* Patient identified by [...] soreness at the end of treatment. [facility] Work Phone: History of Present illness Narrative* Patient ID confirmed using Name and . * Patient wearing mask throughout session today d/t COVID-19 precautions. * Patient with good tolerance to treatment, no c/o increased pain/discomfort in clinic. Emphasis thisdate on ROM and improving WB acceptance and compliance with 50% PWB. [facility] Work Phone: history of Present illness NarrativePatient tolerated treatment without pain. Reports "tightness" in plantar region of left foot. Patient has good form/understanding with ther-ex and reports compliance with HEP. Continue with left footROM/ strength to improve flexibility/ambulation/balance.[facility] Work Phone: Hisladq of Present illness Narrative* Fair tolerance with TE. About 75% with weight shifts today regarding the left LE. Increased DF to blue Thera-Band which patient tolerated well. STM to foot with tenderness and tightness noted. Reliefnoted following session. * Response to treatment: decreased pain. * Patient was able to complete today's treatment with some difficulty. [facility] Work Phone: history of Present illness Narrative* Fair tolerance with TE. Per reports patient [...] to complete today's treatment with some difficulty. [facility] Work Phone: Hisyqkm of Present illness Narrative* Fair tolerance with seated stretches and ankle 4-ways. No c/o increased sx.'s noted. Trial step upsand slant board this date which patient notes some soreness but tolerable. Trial IASTM per plan, toplantar fascia to decrease tightness. * Response to treatment: no change in pain. * Patient was able to complete today's treatment with some difficulty. [facility] Work Phone: history of Present illness Narrative* Patient identified by name & . Patient wore a mask during treatment d/t Covid-19 precautions. * Treatment consisted of * . [facility] Work Phone: History of Present [...] bars. HEP progressed today and handouts given. [facility] History of Present illness Narrative* Patient identified by name & . Patient wore a mask during treatment d/t Covid-19 precautions. * Treatment consisted of * Ambulating with boot, but without crutch some of the time in rehab area. [facility] Work [facility]: History of Present [...] treatment. Pain level the same post treatment. [facility] Work [facility]: History of Present illness Narrative* Patient identified by name & . Patient wore a mask during treatment d/t Covid-19 precautions. 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 Patient arrived 15 min late today and unable to complete all ther ex's this session. Patient pain level the same posttreatment. [facility] Work [facility]: History of Present [...] increase in L ankle pain post treatment. [facility] Work [facility]: history of Present illness Narrative* Patient identified by name & . Patient wore a mask during treatment d/t Covid-19 precautions. * Treatment consisted of NMR activities and ther ex's. Patient ambulating without crutches today. Decreased UE assist needed with NMR activities. Improved gait, without assistive device, improved stability of L ankle. Symptoms the same pre and post treatment. [facility] Work [facility]: history of Present illness Narrative* Pt has attended [...] to complete today's treatment with some difficulty. [facility] Work [facility]: Hiskekk of Present illness Narrative* Patient identified by name & . Patient wore a mask during treatment d/t Covid-19 precautions. * Treatment consisted of NMR activities, ther ex's and manual therapy. Able to progress NMR activities with good tolerance and no LOB's. Completed STW to lateral aspect of ankle and manual stretches for improved DF ROM. Patient with decreased pain to 3/10 post treatment. [facility] Work [facility]: history of Present illness Narrative* [...] today pretreatment with slight improvement post treatment. [facility] Work Phone: History of Present illness Narrative* Patient identified by name & . Patient wore a mask during treatment d/t Covid-19 precautions. * Treatment consisted of ther ex's, NMR activities and manual STW done for left ankle ROM, strengthening, balance/stability and decreased restrictions. Patient tolerated treatment well with no exacerbation of symptoms. * Response to treatment: no change in pain. [facility] Work Phone: History of Present illness NarrativePatient identified by name & . Patient wore a mask during treatment d/t Covid-19 precautions. Treatment consisted of ther ex's and NMR activities. Progressed ex's and added NMR activity of hurdles. Patient tolerated progression of treatment well with some slight increase in left ankle pain post treatment and fatigue. [facility] Work Phone: Progress note Author Leighton Graham [facility] Note Date/Time March 16, 2025 8:20a m [facility] [address] [place] [address] OFFICE VISIT Date of Service: 03/16/25 MR#: [id number] Acct: [id number] Name: JOHANNA DOVE Rep #: [id number] : 1960 Provider: Dr. Chava Graham MD Age/Sex: 64/F Location: [facility] Status: Signed HPI HPI History of Present Illness Details: Patient is a very pleasant 64-year-old white female who comes in today for monitoring of her cardiovascular status and preop clearance. Patient is scheduled next Friday for a surgical procedure on her foot due to a hammertoe. This is to be done under general anesthesia. Patient reports she has been doing fairly well in her home environment she is able to go up and down a flight of stairs without restrictions. She denies any significant change in her exercise tolerance. She walks about 10,000 steps a day in her job without any significant restrictions. The patient does have a significant family history of coronary disease she was personally cathed in 2018and had normal coronary arteries. The patient carries a history of activity and wound remotely she took Sudafed and had some short runs of paroxysmal atrial fibrillation. She has not had any significant ectopy recently she did have a Holter monitor done September 2019 thiswas primarily normal sinus rhythm she had some premature atrial complexes no evidence of atrial fibrillation she had frequent PVCs. She had a uncomfortable jab in her left upper chest which she has had intermittently for some time and during that monitor it correlated with some of the ectopy. This ectopy was feltto be benign. The patient's last echocardiogram August 2022 showed normal LV function EF of 60% the left atrium was mildly enlarged it was trivial mitral insufficiency. There was mild tricuspid insufficiency and mild focal aortic valve calcification. The right ventricular systolic pressure was normal at 21. ECG done in the office today shows normal sinus rhythm and is normal a copy was provided for the patient to take for her preanesthesia evaluation. 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 Required: No Accompanied by: Self Is patient in pain?: No Allergies No Known Allergies Allergy (Verified 03/16/25 07:51) Medications ?Medication ?Instructions ?Recorded ?Confirmed ?Type temazepam 15 mg capsule 15 mg PO QHS PRN Insomnia 03/16/25 History simvastatin 20 mg tablet 20 mg PO DAILY 05/25/18/06/02 History aspirin 81 mg tablet,delayed 81 mg PO DAILY health remberto ntenance 06/03/18 03/16/25 History release omeprazole 20 mg capsule,delayed 20 mg PO DAILY PRN ge rd 12/20/19 03/16/25 His tory release cetirizine 10 mg tablet (Zyrtec) 10 mg PO DAILY allerg ies 07/24/20 03/16/25 History melatonin 5 mg tablet 5 mg PO HS PRN 07/24/2206/02 History losartan 100 1 tab PO DAILY 01/08/2406/02 History mg-hydrochlorothiazide 25 mg tablet (Hyzaar) clobetasol 0.05 % topical ointment 1 applic topical .C OMPLEX #15 grams 03/14/25 03/16/25 Rx Slender X PO DAILY 03/16/25 03/16/25 H istory XCE LER8 PO DAILY 03/16/25 03/16/25 H istory cholecalciferol (vitamin D3) 1,250 1,250 mcg PO QMONTH PRN 03/16/25 03/16/25 History mcg (50,000 unit) capsule propranolol 60 mg tablet 60 mg PO DAILY PRN Headache 03/16/25 03/16/25 History vitamin B complex (B 1 tab PO DAILY PRN 03/16/25 03/16/25 History Complex-Vitamin B12 tablet) Ejection fraction %: 60 Have you fallen [...] History of breast biopsy Hx of colonoscopy (~07/2022) History of foot surgery Family History Father [...] at home: Yes additional social history: -Marcell ROS Const Const: Negative for fatigue or weakness ENT ENT: Negative for dizziness or balance problems Cardio Chest Pain: No Palpitations: No Edema: Bilateral Muscle aches with walking: None Resp Respiratory: Positive for SOB with activity (walking up stairs); Negative for SOB at rest or SOB orthopnea\\SOB lying down GI GI: Negative nausea, vomiting or heartburn Musc Musc: Negative for muscle weakness or balance problems Neuro Neuro: Positive for lightheadedness (when BP gets low); Negative for dizziness, near syncope, syncope or weakness Endo Endo: Negative for fatigue Cardiology Exam Const Appearance: cooperative, healthy appearing, comfortable, no acute distress and well developed Head Head: normal to inspection Eyes General: appearance normal, both eyes and all related structures Neck Neck: normal visual inspection and no JVD Carotids: Negative bruit Chest Chest inspection: normal inspection of the chest Auscultation: Bilateral: Clear to Auscultation Cardio Rate: regular rate Rhythm: regular rhythm Heart sounds: S1 normal, S2 normal and murmur; Negative rub or gallop Murmur: Grade 2/6, soft, mid systolic and RLSB GI GI: normal to inspection Neuro General: patient alert and patient oriented x3 Extremities Lower Extremity Edema: None: Bilateral Psych Psychological: normal affect Supplemental Info Supplemental Information Labs: LDL Cholesterol 86 mg/dL (0-130) HDL Cholesterol 62 mg/dL (40-) Cholesterol 182 mg/dL (<=200) Triglycerides 75 mg/dL (-199) Diagnostics: Abdomen Ultrasound Pulmonary: No Data to Display Past Visits: Cardiology Visit 03/16/25 Assessment and Plan Assessment and Plan (1) Pre-op evaluation: Status: Acute Plan: Patient comes in today for preop evaluation for general anesthesia for lower extremity surgical intervention. The patient remains active in her home environment she denies any anginal type symptoms. Ectopy has been minimal she denies any syncope or near syncope and her ECG is within normal limits. Given the patient's activity levels I do not feel that further evaluation is indicated. The patient should be able to tolerate general anesthesia with acceptable risk profile. From a cardiovascular standpoint I feel the patient can proceed with her surgical intervention. (2) Cardiac murmur: Status: Acute Plan: Patient has a soft 2/6 systolic murmur along the right sternal border this has been present for several years and she has noted that it increased when she was . (3) Ectopic cardiac beats: Status: Acute Plan: Patient's last Holter monitor was relatively benign. She did have PVCs and PACsbut no significant runs and no evidence of atrial fibrillation. The patient utilizes propranolol on a as needed basis. The patient is on some homeopathic drops that have assisted her in dropping 30 pounds which is excellent. However it does seem to have thyroid extract in it and I warned her that this could create a problem with increasing her ectopy. (4) Essential (primary) hypertension: Status: Chronic Plan: Patient's blood pressure is well-controlled in the office today 113/71 heart rate is 70 and regular respirations 18 unlabored. (5) Chest pain: Status: Acute Qualifiers: Chest pain type: unspecified Qualified Code(s): R07.9 - Chest pain, unspecified Plan: Patient's chest discomfort is very atypical for angina. It is sharp and stabbing and historically has been associated with ectopic beats. It is short-lived and not predictable. Orders: Orders 12 Lead EKG performed by [facility] [place] Today R01.1 - Cardiac murmur, unspecified Plan 1. Recommend patient continue current medical therapy. 2. Cautioned her about the weight loss homeopathic therapy as this does seem tohave thyroid extract in it. 3. Recommend the patient proceed with surgical intervention on her foot as tolerated and as planned by the surgical team. 4. Patient will follow-up in the [place] [facility] on a yearly basis and as needed. Plan Details Additional Comments: Thank you for allowing me to participate in the care of your patient. Please don't hesitate to call if any issues arise. This note was generated using a voice recognition system and there may be incorrect words, spelling, or punctuation that were not noted when reviewing theoffice note prior to saving. Portions of this documentation were copied and pasted from previous office visitnotes to provide a cohesive continuity of the history. The note has been reviewed, edited, and updated, as necessary. Follow Up: 1 Year (With Dr. Graham or RYANNE and as needed) Coding Level of Care Code Off vis,est,level 4 Diagnoses Pre-op evaluation Z01.818 Cardiac murmur R01.1 Ectopic cardiac beats I49.49 Essential (primary) hypertension I10 Chest pain, unspecified type R07.9 Chest pain type: unspecified Coding Level of Care Code Off vis,est,level 4 Diagnoses Pre-op evaluation Z01.818 Cardiac murmur R01.1 Ectopic cardiac beats I49.49 Essential (primary) hypertension I10 Chest pain, unspecified type R07.9 Chest pain type: unspecified Clinical Quality Measures Falls Risk Screening/Assistive Devices Have you fallen in the past year?: No Cardiac Ejection fraction %: 60 03/16/25 0820 <Electronically signed by Leighton campos MD> Date _ Leighton Graham MD Cosigner Signature: Date (if applicable) CC: Dr. Margarita Meza, DO ~ [facility] Work Phone: Reason for referral (narrative)No reason for referral information availableWMiami [facility] Hospital Work Phone: Assessments Diagnosis Pain - [...] FoundDocuments on File Type Date Recorded Patient Hardness Tester Expl anation Advance Directives and Livin g Will 11/09/2020 12:00 AM Documents on File Type Date Recorded Patient Hardness Tester Expl anation Advance Directives and Living Will Advance Directive Response Recorded Date/ Time Advance Directives No June 23, 2018 9:33am Living Will No July 11 9:00am Power of Educational Aid No July 11, 2022 9:00am Advance Directive Response Recorded Date/ Time Advance Directives No June 23, 2018 10:33am Living Will No July 11 10:00am Power of Educational Aid No July 11, 2022 10:00am Advance Directive [...] 3am screening January 17, 2025 4:00p m Chief Complaint Admit Date PMB December 08, 2024 2:52 pm LUQ PAIN, PMB December 21, 2024 6:5 3am screening January 17, 2025 4:00p m 2 ORDERING RAMON March 10, 2025 9:49a m 1 Y FU/Surgical Clearance March 16, 2025 7:57am Reason for Visit Admit Date Postmenopausal bleeding December 08, 2024 2:52pm Cardiac murmur March 16, 2025 7:57a m Chest pain March 16, 2025 7:57a m Ectopic cardiac beats March 16, 2025 7:5 7am Pre-op evaluation March 16, 2025 7:57a m Essential (primary) hypertension March 7:57am Chief Complaint Admit Date screening January 17, 2025 4:00p m 2 ORDERING RAMON March 10, 2025 9:49a m 1 Y FU/Surgical Clearance March 16, 2025 7:57am XRAY May 17, 2025 10:32am Reason for Visit Admit Date Cardiac murmur March 16, 2025 7:57a m Chest pain March 16, 2025 7:57a m Ectopic cardiac beats March 16, 2025 7:5 7am Pre-op evaluation March 16, 2025 7:57a m Essential (primary) hypertension March 7:57am Medications Administered Section Active Administered Medications - up to 3 most recent administrations Medication Order MAR Action Action Date Dose Rate Site PHENYLephrine 2.5 % 1 Drop (AK-DILATE, MARIA R-SYNEPHRINE) 1 Drop, BOTH EYES, DIRECTED, Starting on Fri07/30/22 at 1600, Until Fri07/31/22 at 035, Administer for dilation PROTECT FROM LIGHT Given 07/30/2022 4:00 PM EST 1 Drop proparacaine 0.5 % 1 Drop (ALCAINE) 1 Drop, BOTH EYES, DIRECTED, Starting on Fri07/30/22 at 1600, Until Fri07/31/22 at 035, Administer for pneumo tonometry, tonopen tonometry, or [...] section and content) DATE CREATED AUTHOR 03/03/2018 [facility] DATE CREATED AUTHOR AUTHOR'S ORGANIZ ATION 03/03/2018 [facility] DATE CREATED AUTHOR AUTHOR'S ORGANIZ ATION 08/17/2018 [facility] DATE CREATED AUTHOR AUTHOR'S ORGANIZ ATION 08/17/2018 [facility] DATE CREATED AUTHOR AUTHOR'S ORGANIZ ATION [facility]/17/2018 [facility] DATE CREATED AUTHOR AUTHOR'S ORGANIZ ATION 10/27/2018 [facility] DATE CREATED AUTHOR AUTHOR'S ORGANIZ ATION 12/03/2020 [facility] DATE CREATED AUTHOR AUTHOR'S ORGANIZ ATION 09/10/2021 [facility] DATE CREATED AUTHOR AUTHOR'S ORGANIZ ATION 02/14/2025 [facility] DATE CREATED AUTHOR AUTHOR'S ORGANIZ ATION [facility]/2025 [facility] DATE CREATED AUTHOR AUTHOR'S ORGANIZ ATION 05/19/2025 [facility] Reason for Visit (unrecogniz ed section and [...] or prosecute any alcohol or drug abuse patient.[facility] HealthcareIn the event this information is protected by the Federal Confidentiality of Alcohol and Drug Abuse Patient Records regulations: The Federal rules restrict any use of the information to criminally investigate or prosecute any alcohol or drug abuse patient.[facility] Care Teams (unrecognized sec tion and content) Apiculture Teacher Relationship Specialty Start Date End Date Margarita Meza DO [address] [place] [address] PCP - General Family Medicine 08/24/18 Team [...] Meza DO Primary Care Provider Active Elinor Krzysztof Attending Provider Active Team Status: Active Member [...] Provider, Referring P rovider Active Bibi Blas AUTOMATIC COIN MACHINE MECHANIC, AUTOMATIC COIN MACHINE MECHANIC-C Attending Provider Active Team Status: Inactive Member [...] 2024 End: December 08, 2024 Danielle Collins AUTOMATIC COIN MACHINE MECHANIC, AUTOMATIC COIN MACHINE MECHANIC-C Attending Provider Active Start: December 08, 2024 End: December 08, 2024 Team Status: Inactive Member Role Status Dates Dr. Margarita Meza DO Primary Care Provider Active Start: December 08, 2024 End: December 08, 2024 Danielle Collins AUTOMATIC COIN MACHINE MECHANIC, AUTOMATIC COIN MACHINE MECHANIC-C Attending Provider Active Start: December 08, 2024 End: December 08, 2024 Danielle Collins AUTOMATIC COIN MACHINE MECHANIC, AUTOMATIC COIN MACHINE MECHANIC-C Referring Provider Active Start: December 08, 2024 [...] January 17, 2025 End: January 17, 2025 Apiculture Teacher Relationship Specialty Start Date End Date Margarita Meza DO [address] [place] [address] PCP - General Family Medicine 08/24/18 Team Status: Active Member Role/Relationship Status Dates Dr. Margarita Meza DO Primary Care Provider Active Team Status: Inactive Member Role/Relationship Status Dates Dr. Margarita Meza DO Primary Care Provider Active Start: December 08, 2024 End: December 08, 2024 Dr. Margarita Meza DO Referring Provider Active St art: December 08, 2024 End: December 08, 2024 Danielle Collins AUTOMATIC COIN MACHINE MECHANIC, AUTOMATIC COIN MACHINE MECHANIC-C Attending Provider Active Start: December 08, 2024 End: December 08, 2024 Team Status: Inactive Member Role/Relationship Status Dates Dr. Margarita Meza DO Primary Care Provider Active Start: December 08, 2024 End: December 08, 2024 Danielle Collins AUTOMATIC COIN MACHINE MECHANIC, AUTOMATIC COIN MACHINE MECHANIC-C Attending Provider Active Start: December 08, 2024 End: December 08, 2024 Danielle Collins AUTOMATIC COIN MACHINE MECHANIC, AUTOMATIC COIN MACHINE MECHANIC-C Referring Provider Active Start: December 08, 2024 End: December 08, 2024 Team Status: Inactive Member Role/Relationship Status Dates Dr. Margarita Meza DO Primary Care Provider Active Start: December 21, 2024 End: December 21, 2024 Dr. Margarita Meza DO Attending Provider Active St art: December 21, 2024 End: December 21, 2024 Dr. Margarita Meza DO Referring Provider Active St art: December 21, 2024 End: December 21, 2024 Team Status: Inactive Member Role/Relationship Status Dates Dr. Margarita Meza DO Primary Care Provider Active Start: January 17, 2025 End: January 17, 2025 Dr. Mell Roman DO Attending Provider Activ e Start: January 17, 2025 End: January 17, 2025 Dr. Mell Roman DO Referring Provider Activ e Start: January 17, 2025 End: January 17, 2025 Team Status: Active Member Role/Relationship Status Dates Dr. Margarita Meza DO Primary Care Provider Active Start: March 10, 2025 Dr. Margarita Meza DO Other Provider Active Start: March 10, 2025 Dr. Rod Wilson DPM Attending Provider Active Start: March 10, 2025 Dr. Rod Wilson DPM Referring Provider Active Start: March 10, 2025 Team Status: Inactive Member Role/Relationship Status Dates Dr. Margarita Meza DO Primary Care Provider Active Start: March 16, 2025 End: March 16, 2025 Dr. Margarita Meza DO Referring Provider Active St art: March 16, 2025 End: March 16, 2025 Dr. Leighton Graham MD Attending Provider Active Start: March 16, 2025 End: March 16, 2025 Team Status: Inactive Member Role/Relationship Status Dates Dr. Margarita Meza DO Primary Care Provider Active Start: March 10, 2025 End: March 10, 2025 Dr. Margarita Meza DO Other Provider Active Start: March 10, 2025 End: March 10, 2025 Dr. Rod Wilson DPM Attending Provider Active Start: March 10, 2025 End: March 10, 2025 Dr. Rod Wilson DPM Referring Provider Active Start: March 10, 2025 End: March 10, 2025 Team Status: Inactive Member Role/Relationship Status Dates Dr. Margarita Meza DO Primary Care Provider Active Start: January 17, 2025 End: January 17, 2025 Dr. Mell Roman DO Attending Provider Activ e Start: January 17, 2025 End: January 17, 2025 Dr. Mell Roman DO Referring Provider Activ e Start: January 17, 2025 End: January 17, 2025 Team Status: Inactive Member Role/Relationship Status Dates Dr. Margarita Meza DO Primary Care Provider Active Start: March 10, 2025 End: March 10, 2025 Dr. Margarita Meza DO Other Provider Active Start: March 10, 2025 End: March 10, 2025 Dr. Rod Wlison DPM Attending Provider Active Start: March 10, 2025 End: March 10, 2025 Dr. Rod Wilson DPM Referring Provider Active Start: March 10, 2025 End: March 10, 2025 Team Status: Inactive Member Role/Relationship Status Dates Dr. Margarita Meza DO Primary Care Provider Active Start: March 16, 2025 End: March 16, 2025 Dr. Margarita Meza DO Referring Provider Active St art: March 16, 2025 End: March 16, 2025 Dr. Leighton Graham MD Attending Provider Active Start: March 16, 2025 End: March 16, 2025 Team Status: Inactive Member Role/Relationship Status Dates Dr. Margarita Meza DO Primary Care Provider Active Start: May 17, 2025 End: May 17, 2025 Dr. Brendan Blanton MD Attending Provider Active S tart: May 17, 2025 End: May 17, 2025 Goals (unrecognized section and content) Goals may [...] BE BASED ON THE PRIMARY CLINICAL RECORDS. [facility] [employer] [facility]. provides no warranty or guarantee of the accuracy or completeness of information in this document.
[2025-06-23 17:57] LABS: Hematocrit 42.0 % (37-47); Hemoglobin 13.9 g/dL (12.0-15.0); Immature Granulocytes Count 0.010 X10^3/uL (0.0-0.0); Mean Corp Hgb Conc 33.1 g/dL (32-36); Mean Corpuscular Volume 91.7 fL (81-99); Mean Platelet Vol. 11.7 fl (6.2-12.0); NRBC Flagged by Analyzer 0 % (0-5); Platelet Count 290 K/mm3 (150-450); RBC Distribution Width CV 12.9 % (11.6-14.6); RBC Distribution Width SD 43.7 fl (35.1-43.9); Red Blood Count 4.58 M/mm3 (4.2-5.4); White Blood Count 8.2 K/mm3 (4.4-11.0)
[2025-06-23 18:46] LABS: FOLATES,SERUM (FOLIC ACID) 4.87 ng/mL (4.60-34.80)
[2025-06-23 18:49] LABS: AST(SGOT) 24 U/L (<=31); Alanine Aminotransfer ALT/SGPT 28 U/L (<=34); Albumin, Serum 4.6 g/dL (3.4-4.8); Alkaline Phosphatase 88 U/L (35-104); Anion Gap 14 (5-15); BUN 20 mg/dL (4-19); BUN/Creat Ratio 21.7 RATIO (10-20); Calcium,Total 10.0 mg/dL (7.6-11.0); Carbon Dioxide 24.3 mmol/L (21.0-32.0); Chloride 99 mmol/L (98-108); Free T3 2.9 pg/mL (2.18-3.98); Globulin 3.0 g/dL (2.2-4.2); Glucose 91 mg/dL (70-99); Iron 57 ug/dL (50-170); Magnesium 2.1 mg/dL (1.5-2.2); Potassium 3.4 mmol/L (3.3-5.1); Vitamin B12 993 pg/mL (180-914)
[2025-06-24 22:49] LABS: Ferritin 125 ng/mL (22-378)
== END | disposition home or self-care (01) ==
LOC: MTLAB 15:14
PROVIDERS: PCP Family Medicine; Referring Provider Family Medicine; Visit Provider Family Medicine
DX: E03.9 Hypothyroidism, unspecified (principal); R42 Dizziness and giddiness; E61.2 Magnesium deficiency; E53.8 Deficiency of other specified B group vitamins
CPT/HCPCS: 36415; 80053; 82607; 82728; 82746; 83540; 83735; 84439; 84443; 84481; 85025